=== PATIENT | female | born 1985 | race Caucasian/White ===

== ENCOUNTER 2022-08-16 19:49 | Emergency (ER) | payer BC, SELFPAY ==
[2022-08-16 20:02] VITALS: BP 135/86; PULSE 65; RESP 16; TEMP 36.6; O2SAT 97
--- NOTE | 2022-08-16 20:37 | ED.CHESTPAIN ---
HPI - Chest Pain General Chief Complaint: Chest Pain Stated Complaint: Chest Pain Time Seen by Provider: 08/16/22 20:00 History of Present Illness HPI narrative: This 36-year-old female comes in reporting chest pain over the past several days. She describes all kinds of symptoms actually and has fears about what might be happening with her. She reports lightheadedness, headache, fibromyalgia, shortness of breath. She was into a clinic 4 days ago and had chest x-ray which was negative but was told that she had bronchitis and received a prescription for Z-Gilbert and prednisone. At that time her white count was 12 which is typical for her she says. Today she went to [facility] and had EKG and labs done. The EKG shows no acute findings. Her white count increased to 16,000 which is likely due to her steroid therapy. She does not report any fevers. She states that her chest discomfort is in the left upper chest in radiating around to her left axilla and back. She does not report any particular injury event but does state that she has fibromyalgia and can have chest pain along her sternum and left side related to this. She does state that the pain is reproducible with deep breath and certain movements. She states that her father has idiopathic hypertrophic cardiomyopathy and is concerned that her heart is possibly experiencing the same diagnosis. Related Data Home Medications Medication Instructions Recorded Confirmed acetaminophen 08/16/22 azithromycin 250 mg tablet mg 08/16/22 cyclobenzaprine 5 mg tablet 5 mg PO HS 08/16/22 08/16/22 metformin 500 mg tablet mg 08/16/22 methylprednisolone 4 mg tablets in mg 08/16/22 a dose pack naproxen sodium 220 mg capsule 220 mg PO BID PRN 08/16/22 08/16/22 (Aleve) ondansetron 4 mg disintegrating 4 mg PO Q8H PRN nausea and vomiting 08/16/22 08/16/22 tablet sulfacetamide sodium 10 % eye drops drp 08/16/22 Allergies Allergy/AdvReac Type Severity Reaction Status Date / Time bupropion [From Wellbutrin] Allergy Verified 08/16/22 20:18 Review of Systems Status of ROS Reports: 10 or more systems reviewed and unremarkable except as noted in History and below Narrative Constitutional: No fevers, no weight gain or loss. She states that she has episodes of weakness where it is difficult for her to get up and walk. This lasts about 10 or 20 minutes and happens randomly. Eyes: No discharge. No vision changes. HENT: No congestion, no sore throat, no ear pain. She reports a headache. Cardiovascular: She reports chest pain as described above. She also has occasional palpitations. Respiratory: No wheezes, no cough. She does report episodes of shortness of breath. Gastrointestinal: No abdominal pain, no vomiting, no diarrhea. Genitourinary: No dysuria, no hematuria. Musculoskeletal: Normal range of motion. Skin: No rashes, no pruritis. Neurological: No dizziness, weakness, sensory change, speech change. Endo/Heme/Allergies: No bruising or bleeding. No polydipsia. Pysch: no suicidality, no anxiety, no insomnia. All other systems reviewed and are negative. Exam Narrative Exam Narrative: Constitutional: Well-developed, well-nourished, no acute distress. HEENT: Normocephalic, atraumatic. Neck: Normal range of motion. Nontender. Supple. Heart: Regular. No murmurs. Normal rate. Intact distal pulses. Lungs: Clear to auscultation. No wheezes, rhonchi, or rales. Abdomen: Normal bowel sounds. Nontender. No rebound tenderness. Genitalia: Deferred. Back: No midline tenderness. Normal range of motion. Extremities: Normal range of motion. No injury. Skin: Intact. No rash. Warm. No erythema or pallor. Neurologic: No altered sensation. No weakness. Alert and oriented. Psychiatric: No suicidality. No anxiety or depression. No insomnia. Nursing notes and vitals signs are reviewed. Const Vital Signs, click to edit/add: Vital Signs - 24 hr 08/16/22 20:02 Temperature 97.8 F Pulse Rate [Left Pulse Oximeter] 65 Respiratory Rate 16 Blood Pressure [Right Upper Arm] 135/86 Pulse Oximetry 97 Oxygen Delivery Method Room Air Course Vital Signs Vital signs: Initial Vital Signs Temperature 97.8 F 08/16/22 20:02 Temperature Source Temporal Artery Scan 08/16/22 20:02 Pulse Rate 65 08/16/22 20:02 Pulse Rhythm 08/16/22 20:02 Respiratory Rate 16 08/16/22 20:02 Blood Pressure 135/86 08/16/22 20:02 Blood Pressure Mean 102 08/16/22 20:02 Pulse Oximetry 97 08/16/22 20:02 Oxygen Delivery Method 08/16/22 20:02 Vital Signs Temperature 97.8 F 08/16/22 20:02 Pulse Rate 65 08/16/22 20:02 Respiratory Rate 16 08/16/22 20:02 Blood Pressure 135/86 08/16/22 20:02 Pulse Oximetry 97 08/16/22 20:02 Oxygen Delivery Method 08/16/22 20:02 Temperature 97.8 F 08/16/22 20:02 Pulse Rate 65 08/16/22 20:02 Respiratory Rate 16 08/16/22 20:02 Blood Pressure 135/86 08/16/22 20:02 Pulse Oximetry 97 08/16/22 20:02 Oxygen Delivery Method 08/16/22 20:02 MDM - Chest Pain MDM Narrative Medical decision making narrative: This patient comes in with chest pain and many other symptoms as described above. She had a reasonable workup earlier today in an emergency department. I reviewed those lab and EKG results. Her white count was elevated today compared to 4 days ago but she has been taking a steroid. She has finished taking her Zithromax. I did use ultrasound at bedside to look at her heart and saw normal anatomy without any sign of hypertrophic cardiomyopathy, wall motion abnormality, or valvular dysfunction. This was reassuring to the patient. Additionally her troponin returns at 0.00. A D-dimer result is pending at the end of my shift. This patient had a vaccination for hepatitis-B last week and it was soon after this that she began to have these various symptoms. She may be having some extra immune response and adverse effects from that vaccination. She understands that we do not have a test that can verify the vaccination is the source for these symptoms. In any event she is not showing signs and symptoms that are worrisome. Her chest pain is more likely chest wall pain as it is reproducible. Her heart and lungs are not likely involved with her symptoms. The patient did receive an oral dose of Toradol 10 mg to treat her headache. Lab Data Labs: Lab Results 08/16/22 Range/Units 20:32 POC Troponin I 0.00 L (0.01-0.04) ng/ml Discharge Plan Discharge Clinical Impression: Atypical chest pain Patient Disposition: Home, Self-Care Condition: Stable Additional Instructions: Continue current plans. Follow up with MD or return if worsening symptoms happen. Prescriptions: No Action metformin 500 mg tablet Label Comments: TAKE ONE TABLET BY MOUTH EVERY DAY WITH BREAKFAST azithromycin 250 mg tablet Label Comments: TAKE TWO TABLETS ON THE FIRST DAY, AND ONE DAILY ON DAYS 2-5 sulfacetamide sodium 10 % drops Label Comments: ADMINISTER ONE DROP TO BOTH EYES SIX TIMES A DAY methylprednisolone 4 mg tablets,dose pack Label Comments: TAKE BY MOUTH INSTRUCTED PER PACKAGING ondansetron 4 mg tablet,disintegrating 4 mg PO Q8H PRN (Reason: nausea and vomiting) acetaminophen cyclobenzaprine 5 mg tablet 5 mg PO HS naproxen sodium [Aleve] 220 mg capsule 220 mg PO BID PRN Stand Alone Forms: [facility] Instructions Procedures Ultrasound Cardiac exam #1: Anatomical areas examined: parasternal long, parasternal short and apical 4 chamber Indications: chest pain Exam type: limited transthoracic echocardiogram Impression: negative exam
[2022-08-16] MEDS: KETOROLAC 10 MG TABLET PO (21:09)
[2022-08-16 21:12] VITALS: BP 127/83; PULSE 66; RESP 16; O2SAT 97
[2022-08-16 21:19] LABS: D Dimer Quantitative* < 0.27 ug/ml (0.00-0.50)
--- OUTSIDE RECORDS SUMMARY | 2022-08-16 21:26 | XMS_ITS | Clinical Summary ---
:1985 Author Organization [facility] Address [address] [place] [address] Care Team Providers Name Role Phone Florin Woods M.D. Primary Care Provider Source Comments Patient records contain information from all sites at [facility]. For routine questions regarding patient records, call [phone] during business hours, M-F 8:00 AM - 5:00 PM Central Time. Record requests for emergency care only can be directed to [phone] at any time.[facility] Allergies Active Allergy Reactions Severity Noted Date Comments Bupropion Hcl Anxiety 06/03/2014 flush, anger Medications Medication Sig Dispensed Refills Start Date End Date Status acetaminophen Take by mouth every 0 Active (TYLENOL) 500 mg 6 (six) hours as capsule needed for pain. ondansetron (ZOFRAN) Take 4 mg by mouth 0 Active 4 mg tablet every 8 (eight) hours as needed for nausea or vomiting. cyclobenzaprine cyclobenzaprine 5 mg tablet 0 Active (FLEXERIL) 5 mg TAKE ONE TABLET BY MOUTH AT BEDTIME NEEDED FOR MUSCLE SPASM tablet naproxen sodium Take 220 mg by 0 11/07/2021 Active (ALEVE/ANAPROX) 220 mouth. mg tablet sulfacetamide Administer 1 drop 5 mL 0 04/26/2022 Active (BLEPH-10) 10 % into both eyes 6 ophthalmic solution (six) times a day. Additional Information Patient not taking. Reported on 08/16/2022 metFORMIN (GLUCOPHAGE) 500 Take 1 tablet (500 mg 90 tablet 0 0 08/08/2022 Active mg tablet total) by mouth daily with breakfast. Additional Information Patient not taking. Reported on 08/16/2022 methylPREDNISolone (MEDROL DOSEPAK) TAKE BY MOUTH 0 08/12/2022 Active 4 mg tablet INSTRUCTED PER PACKAGING Active Problems Patient Care Coordination Note Formatting of this note might be differe nt from the original. RACHELE declined by Patient. Problem Noted Date COVID-19 Infection 04/09/2022 Cystocele Midline 07/05/2019 Prolapse Uterine 03/08/2019 Anemia Iron Deficiency 12/03/2018 Subacute And Chronic Vaginitis 04/10/2018 Fibromyalgia 03/27/2018 Headache Tension Chronic 09/05/2014 Chronic Tension Type Headache Not Intractable 09/05/20 14 Cervical Dysplasia Personal History 04/02/2010 Resolved Problems Problem Noted Date Resolved Date Sterilization Elective 04/07/2019 06/18/2019 Overview: laparoscopic bilateral salpingectomy on 06/17/2019 Precipitate Labor 03/01/2019 03/08/2019 Maternal Care For Suspected Abnormality And Damage 05/201903/08/2019 Hyperemesis Gravidarum Mild 08/12/2018 With Personal History Gestational Diabetes Mellitu s 07/16/2018 03/08/2019 Examination Other Normal Third Trimester 07/16/2018 04/07/2019 Obesity Body Mass Index 30-39.9 Adult 04/10/2018 Diabetes Mellitus Gestational 01/05/2015 10/17/2017 Pain Musculoskeletal NOS 11/18/2014 10/17/2017 Depression Major Recurrent 10/22/2011 07/20/2018 Overview: Depressive disorder, major, recurrent ep isode Bipolar I Depressed 10/22/2011 07/20/2018 Overview: Bipolar disorder, depressed Abuse Tobacco Smoking 06/27/2010 04/10/2018 Polycystic Ovary Syndrome 04/02/2010 07/20/2018 Encounters Date Type Specialty Care Team Description 08/16/2022 Hospital Encounter Laboratory Medicine Saleem Deng lpitations; Antoinette, P.A.-C. Shortness O f Breath; Weakness Genera l; Fatigue; Confusion 08/16/2022 Hospital Encounter Laboratory Medicine Saleem Deng lpitations; Antoinette, P.A.-C. Shortness O f Breath; Weakness Genera l; Fatigue; Confusion 08/16/2022 Hospital Encounter Laboratory Medicine Saleem Deng lpitations; Antoinette, P.A.-C. Shortness O f Breath; Weakness Genera l; Fatigue; Confusion 08/16/2022 Hospital Encounter Laboratory Medicine Saleem Deng lpitations; Antoinette, P.A.-C. Shortness O f Breath; Weakness Genera l; Fatigue; Confusion 08/16/2022 Office Visit [facility] Internal Shahla Deng (Primary Dx); Medicine Antoinette, P.A.-C. Shortness O f Breath; Weakness Genera l; Fatigue; Confusion; Flushing 08/16/2022 Nurse Triage Family Medicine Patrizia Koch, Results R.N. 08/15/2022 Nurse Triage Family Medicine Soraida Morales, Follow-u p R.N., CLC 08/12/2022 Nurse Triage Family Medicine Ethel Manzano, Breathing Problem M.S.N., R.N. 08/08/2022 Office Visit Family Medicine Florin Woods, Polycyst ic Ovary Syndrome (Primary Dx); M.D. Obesity Body Ma ss Index 30-39.9 Adult 08/07/2022 Clinical Support Nutrition Mikie Mathews C, Obesity Body Mass M.D. Index 30-39.9 Adult Sarahy Willis, RDN, LD from Last 3 Months Immunizations Name Administration Dates Next Due 4vHPV (discontinued) 06/24/2007, 06/24/2007, 01/23/2007, 10/15/2006 DTaP (Infanrix, Tripedia) 01/26/2015 HepB Adult (HEPLISAV-B) 08/08/2022 HepB, Unspecified 02/18/2005 IPV 11/24/1988 Influenza, Seasonal, Injectable 08/09/2010, 09/29/2008 Influenza, Unspecified 09/05/2014, 08/09/2010, 09/29/2008 MMR 03/18/2000, 11/24/1999 Td (Adult), adsorbed 12/29/2009, 03/18/2000 Tdap 12/30/2018, 12/29/2009 Family History Medical History Relation Name Comments No Known Problems Brother odilon Anesthesia problems Father Confucianist Ng Has pacemak er defribrillator. Can NOT be fully put und er Anxiety disorder Father Hal Ng Colon polyps Father Hal Ng Depression Father Hal Ng Genetic disease Father Hal Ng Idiopathic fami liar cardiomyopathy Heart failure Father Hal Ng Migraines Father Hal Ng Psychiatric Father Hal Ng Suicide Attempts Father Hal Ng chronic kidney diseae Father Hal Ng Uterine cancer Father's Sister 1 55 Endometrial cancer Father's Sister 2 Brenda Lung cancer Father's Sister 2 Brenda Stroke Maternal Grandmother Kathi Kraft Anxiety disorder Mother Janis Arthritis Mother Janis Depression Mother Janis Endometrial cancer Mother Janis 50s Lung cancer Mother Janis Sahin Migraines Mother Janis Uterine cancer Mother Janis Rheum arthritis Mother's Sister Liz Lung cancer Paternal Grandfather Shay Ng Endometrial cancer Paternal Grandmother Mallika >50 Lung cancer Paternal Grandmother Mallika Ng Uterine cancer Paternal Grandmother Mallika Suicide Attempts Sister Selam Ng Relation Name Status Comments Brother odilon Alive Father Hal Ng Alive Father's Sister 1 Father's Sister 2 Brenda Maternal Grandmother Kathi Tuckerehy Mother Janis (Age 51) Mother's Sister Liz Paternal Grandfather Shay Paternal Grandmother Mallika Sister Selam Ng Alive Social History Tobacco Use Types Packs/Day Years Used Date Smoking Tobacco: Former Cigarettes 0 11/1995 - 2015 Smokeless Tobacco: Never Tobacco Cessation: Counseling Given: Not Answered Comments: Smoked throughout my childhood . Quit and restarted a couple times Alcohol Use Standard Drinks/Week Comments Yes 0 (1 standard drink = 0.6 oz pure I dont drink often. Maybe twice a alcohol) month Alcohol Habits Answer Date Recorded How often do you have a drink Monthly or less 01/25/2022 containing alcohol? How many drinks containing alcohol do 1 or 2 you have on a typical day when you are drinking? How often do you have six or more Never 2021 drinks on one occasion? Comment: I dont drink often. Maybe twice a 2017 month Social Isolation Answer Date Recorded In a typical week, how many times do you More than three becki es a week 01/25/2022 talk on the phone with family, friends, or neighbors? How often do you get together with friends More than three t imes a week 01/25/2022 or relatives? How often do you attend muslim or Never 2021 orthodoxy services? Do you belong to any clubs or No 01/25/2022 organizations such as muslim groups, unions, fraternal or athletic groups, or school groups? How often do you attend meetings of the Never 01/25/2022 clubs or organizations you belong to? Are you now , , , Living with partner 01/25/2022 , never or living with a partner? Physical Activity Answer Date Recorded On average, how many days per week do you engage in moderate to 7 days 01/25/2022 strenuous exercise (like walking fast, running, jogging, dancing, swimming, biking, or other activities that cause a light or heavy sweat)? On average, how many minutes do you engage in exercise at th is 30 min 01/25/2022 level? Stress Answer Date Recorded Do you feel stress - tense, restless, nervous, or anxious, R ather much 01/25/2022 or unable to sleep at night because your mind is troubled all the time - these days? Financial Resource Strain Answer Date Recorded How hard is it for you to pay for the very basics like Not h oksana at all 01/25/2022 food, housing, medical care, and heating? Intimate Partner Violence Answer Date Recorded Within the last year, have you been afraid of your partner o r No 01/25/2022 ex-partner? Within the last year, have you been humiliated or emotionall y No 01/25/2022 abused in other ways by your partner or ex-partner? Within the last year, have you been kicked, hit, slapped, or No 01/25/2022 otherwise physically hurt by your partner or ex-partner? Within the last year, have you been raped or forced to have any No 01/25/2022 kind of sexual activity by your partner or ex-partner? Food Insecurity Answer Date Recorded Within the past 12 months, you worried that your food would Never true 01/25/2022 run out before you got money to buy more. Within the past 12 months, the food you bought just didn't N ever true 01/25/2022 last and you didn't have money to get more. Transportation Needs Answer Date Recorded In the past 12 months, has lack of transportation kept you f rom No 01/25/2022 medical appointments or from getting medications? In the past 12 months, has lack of transportation kept you f rom No 01/25/2022 meetings, work, or getting things needed for daily living? Housing Stability Answer Date Recorded In the last 12 months, was there a time when you were not ab le No 01/25/2022 to pay the mortgage or rent on time? In the last 12 months, how many places have you lived? 1 01/25/2022 In the last 12 months, was there a time when you did not hav e a No 01/25/[address] or slept in a longterm (including now)? Education Answer Date Recorded What is the highest level of school you have GED or equivale nt 05/25/2019 completed or the highest degree you have received? Sex Assigned at Date Recorded Female 06/02/2018 2:38 PM CDT Last Filed Vital Signs Vital Sign Reading Time Taken Comments Blood Pressure 92/59 08/16/2022 9:27 AM CDT Pulse 67 08/16/2022 9:27 AM CDT Temperature 35.8 ??C (96.5 ??F) 08/16/2022 9:27 AM CDT Respiratory Rate 16 08/16/2022 9:27 AM CDT Oxygen Saturation 97% 08/16/2022 9:27 AM CDT Inhaled Oxygen Concentration - - Weight 77 kg (169 lb 13.8 oz) 08/16/2022 9:27 AM CDT Height 153 cm (5' 0.24) 08/16/2022 9:27 AM CDT Body Mass Index 32.91 08/16/2022 9:27 AM CDT Plan of Treatment Upcoming Encounters Date Type Specialty Care Team Description 08/30/2022 Clinical Communication Admitting/Central Scheduling 09/02/2022 Comprehensive Visit Endocrinology Ricardo Winkler APRN, C.N.P., D.N.P. [address] [place] [id number] Health Maintenance Due Date Last Done Comments COVID-19 Vaccine (#1) 04/15/1988 Influenza Vaccine (#1) 2022 09/05/2014, 08/09/2010, 08/09/2010, Additional history exists Hepatitis B Vaccines (3 of 10/03/2022 08/08/2022, 5 3 - 3-dose series) Cervical Cancer Screening 04/07/2024 04/07/2019, 12/18/2016 , 08/05/2014, Additional history exists DTaP,Tdap,and Td Vaccines 12/30/2028 12/30/2018, 01/26/2015 , (5 - Td or Tdap) 12/29/2009, Additional history exists Hepatitis C Screening Completed 06/03/2014 HIV Screening Completed 09/02/2018, 08/05/2014, 06/03/2014 Depression Screening Completed 12/31/2021 (Annual PHQ-2) Pneumococcal vaccine (0-64 Aged Out No lo nger eligible years) based on patient 's age to complete this topic Medical Devices Implanted Type Area Cupola Operator Insulation Device Shelf Model / Identifier Expiration Serial / Date Lot Hardware E.G. Hardware Abdomen Pins/Screws/Ro e.g. ds pins/screws/ rods Description: Appendix Procedures Procedure Name Priority Date/Time Associated Comments Diagnosis ECG Routine 08/16/2022 10:51 Palpitations Results for this AM CDT Shortness Of Gris ath procedure are in Weakness General the results Fatigue section. Confusion THYROID FUNCTION Routine 08/16/2022 10:43 Palpitations Results for this CASCADE, S AM CDT Shortness Of Gris ath procedure are in Weakness General the results Fatigue section. Confusion BASIC METABOLIC Routine 08/16/2022 10:43 Palpitations Results for this PANEL, S/P AM CDT Shortness Of Gris ath procedure are in Weakness General the results Fatigue section. Confusion CBC WITH Routine 08/16/2022 10:43 Palpitations Results for this DIFFERENTIAL, B AM CDT Shortness Of Gris ath procedure are in Weakness General the results Fatigue section. Confusion URINALYSIS WITH Routine 08/16/2022 10:39 Palpitations Results for this MICROSCOPIC AM CDT Shortness Of Gris ath procedure are in Weakness General the results Fatigue section. Confusion from Last 3 Months Results ECG 12 Lead (08/16/2022 10:51 AM CDT) P athologist Signature Ventricular Rate 57 BPM MUSE ECG/Min CO Interval 152 ms MUSE QRSD Interval 82 ms MUSE QT Interval 418 ms MUSE QTC Interval 406 ms MUSE P [place] 64 degrees MUSE R [place] 40 degrees MUSE T Wave [place] 16 degrees MUSE Specimen Anatomical Collection Method Collection Time Receive d Time (Source) Location / / Volume Laterality 08/16/2022 10:51 08/16/2022 AM CDT 10:56 AM CDT Impressions MUSE - 08/16/2022 10:56 AM CDT Sinus bradycardia Cannot rule out Inferior infarct No previous ECGs available Reviewed by SIA Srinivasan Narrative This result has an attachment that is no t available. Procedure Note Yeison Alves M.D. - 08/16/2022Fo rmatting of this note might be different from the original. IMPRESSION: Sinus bradycardia Cannot rule out Inferior infarct No previous ECGs available Reviewed by SIA Srinivasan Antoinette Deng P.A.-C. ECG ORDERABLES Performing Organization Address City/State/ZIP Code Phon e Number MUSE MUSE NA Thyroid Function [place] (08/16/2022 10:43 AM CDT) P athologist Signature TSH, Sensitive 3.8 0.3 - 4.2 08/16/2022 [place] mIU/L 1:49 PM CDT Specimen Anatomical Collection Method Collection Time Receive d Time (Source) Location / / Volume Laterality Blood (Blood, 08/16/2022 10:43 08/16/2022 1:03 Venous) AM CDT PM CDT Antoinette Deng P.A.-C. LAB BLOOD ADD-ON Performing Organization Address City/State/ZIP Code Phon e Number [facility]- [address] [place] [address] [place] [address] System in [place] [address] (ABNORMAL) CBC with Differential, Blood (08/16/2022 10:43 AM CDT) Patholo gist Method Time Signature Hemoglobin 13.3 11.6 - 08/16/2022 FB60 15.0 g/dL 11:26 AM CDT Hematocrit 40.3 35.5 - 08/16/2022 FB60 44.9 % 11:26 AM CDT Erythrocytes 4.31 3.92 - 08/16/2022 FB60 5.13 11:26 AM CDT x10(12)/L MCV 93.5 78.2 - 08/16/2022 FB60 97.9 fL 11:26 AM CDT RBC Distrib Width 13.0 12.2 - 08/16/2022 FB60 16.1 % 11:26 AM CDT Platelet Count 462 (H) 157 - 371 08/16/2022 FB60 x10(9)/L 11:26 AM CDT Leukocytes 16.6 (H) 3.4 - 9.6 08/16/2022 FB60 x10(9)/L 11:26 AM CDT Neutrophils 11.89 (H) 1.56 - 08/16/2022 FB60 6.45 11:26 AM CDT x10(9)/L Lymphocytes 3.55 (H) 0.95 - 08/16/2022 FB60 3.07 11:26 AM CDT x10(9)/L Monocytes 1.06 (H) 0.26 - 08/16/2022 FB60 0.81 11:26 AM CDT x10(9)/L Eosinophils <0.04 0.03 - 08/16/2022 FB60 0.48 11:26 AM CDT x10(9)/L Basophils <0.04 0.01 - 08/16/2022 FB60 0.08 11:26 AM CDT x10(9)/L Specimen Anatomical Collection Method Collection Time Receive d Time (Source) Location / / Volume Laterality Blood (Blood, 08/16/2022 10:43 08/16/2022 Venous) AM CDT 10:43 AM CDT Antoinette Deng P.A.-C. LAB BLOOD ADD-ON Performing Organization Address City/State/ZIP Code Phon e Number [facility]- [address] [place] [address] [facility] [address] [place] [address] Basic Metabolic Panel (08/16/2022 10:43 AM CDT) P athologist Signature Potassium, P 4.0 3.6 - 5.2 08/16/2022 [place] mmol/L 1:39 PM CDT Sodium, P 139 135 - 145 08/16/2022 [place] mmol/L 1:39 PM CDT Chloride, P 99 98 - 107 08/16/2022 [place] mmol/L 1:39 PM CDT Bicarbonate, P 29 22 - 29 08/16/2022 [place] mmol/L 1:39 PM CDT Anion Gap, P 11 7 - 15 08/16/2022 [place] 1:39 PM CDT BUN (Blood Urea 16 6 - 21 08/16/2022 [place] Nitrogen), P mg/dL 1:39 PM CDT Creatinine 0.72 0.59 - 08/16/2022 [place] 1.04 mg/dL 1:39 PM CDT Estimated GFR >90 >=60 08/16/2022 [place] (eGFR) mL/min/BSA 1:39 PM CDT Comment: Estimated GFR calculated using the 2020 CKD_EPI creatinine equation. Calcium, Total, P 9.7 8.6 - 10.0 mg/dL 08/16/2022 1:39 PM CDT [place] Glucose, P 86 70 - 140 mg/dL 08/16/2022 1:39 PM CDT O RAO Specimen Anatomical Collection Method Collection Time Receive d Time (Source) Location / / Volume Laterality Blood (Blood, 08/16/2022 10:43 08/16/2022 1:03 Venous) AM CDT PM CDT Antoinette Deng P.A.-C. LAB BLOOD ADD-ON Performing Organization Address City/State/ZIP Code Phon e Number [facility]- [address] [place] [id number] [place] [address] System in [place] [address] (ABNORMAL) Urinalysis with Microscopic: Urine, Midstream (08/16/2022 10:39 AM CDT) Analysis Performed At Patho logist Time Signature Source Urine, Urine, 08/16/2022 FB60 Midstream 10:47 AM CDT Clarity Clear Clear 08/16/2022 FB60 11:02 AM CDT Color Yellow 08/16/2022 FB60 11:02 AM CDT Comment: ----REFERENCE VALUE---- Colorless Yellow Francia Blood Large (A) Negative 08/16/2022 11:02 AM CDT FB60 Nitrite Negative Negative 08/16/2022 11:02 AM CDT FB60 Leukocyte Esterase Negative Negative 08/16/2022 11:02 AM C DT FB60 Protein 30 (A) mg/dL 08/16/2022 11:02 AM CDT FB60 Comment: ----REFERENCE VALUE---- Negative Trace Glucose Negative Negative mg/dL 08/16/2022 11:02 AM CDT F B60 Ketones, QI(U) Negative Negative mg/dL 08/16/2022 11:02 AM CDT FB60 Bilirubin Small (A) Negative 08/16/2022 11:02 AM CDT FB60 pH 5.5 5.0 - 8.0 08/16/2022 11:02 AM CDT FB60 Specific [place] >=1.030 1.001 - 1.035 08/16/2022 11:02 AM CDT FB60 Urobilinogen 0.2 0.2 - 1.0 mg/dL 08/16/2022 11:02 AM C DT FB60 White Blood Cells Occ-3 /hpf 08/16/2022 11:02 AM CD T FB60 Comment: ----REFERENCE VALUE---- Males: 0-3 Females: 0-10 Unknown: 0-10 Red Blood Cells 11-20 (A) 0 - 2 /hpf 08/16/2022 11:02 AM CDT FB60 Dysmorphic Red Blood Cells <=25 <=25 % 08/16/2022 11 :02 AM CDT FB60 Mucus Present /hpf 08/16/2022 11:02 AM CDT FB60 Specimen Anatomical Collection Method Collection Time Receive d Time (Source) Location / / Volume Laterality Urine (Urine, 08/16/2022 10:39 08/16/2022 Midstream) AM CDT 10:47 AM CDT Antoinette SorianoALaxmiC. LAB URINE ORDERABLES Performing Organization Address City/State/ZIP Code Phon e Number [facility]- [address] [place] [address] [facility] [address] [place] [address] System in [place] [address] from Last 3 Months Insurance Payer Benefit Plan Subscriber ID Effective Phone Address Typ e / Group Dates BLUE AXEL BCBS BLUE [id number] 2019-Prese ATTN: Riya cervantes HMO BLUE SHIELD PLUS HMO nt CONSUMER [facility] [place] [address] [address] [place] [address] Care Teams Relief Cook Relationship Specialty Start Date End Date Florin Woods M.D. PCP - General 01/04/[address] [place] [address] [place]O [place] [phone]
--- OUTSIDE RECORDS SUMMARY | 2022-08-16 21:26 | XMS_ITS | Encounter Summary ---
:1985 Author Organization [facility] Address [address] [place] [address] Care Team Providers Name Role Phone Florin Woods M.D. Primary Care Provider Encounter Details Date Type Department Care Team Description 08/16/2022 Hospital Encounter Department of [place], Palpitat ions; Laboratory Medicine Antoinette, Shortnes s Of Breath; in Bo SchroederAJus Weakness General; [place] [address] Fatigue; [address] [place], [place] [phone] Social History Tobacco Use Types Packs/Day Years Used Date Smoking Tobacco: Former Cigarettes 0 11/1995 - 2015 Smokeless Tobacco: Never Comments: Smoked throughout my childhood . Quit [...] or relatives? How often do you attend episcopalian or Never 2021 voodoo services? Do you belong to any clubs or No 01/25/2022 organizations such as episcopalian groups, unions, fraternal or athletic groups, or [...] place to sleep or slept in a correction (including now)? Education Answer Date Recorded What is the highest level of school you have GED or equivale nt 05/25/2019 completed or the highest degree you have received? Sex Assigned at Date Recorded Female 06/02/2018 2:38 PM CDT documented as of this encounter Plan of Treatment Upcoming Encounters Date Type Specialty Care Team Description 08/30/2022 Clinical Communication Admitting/Central Scheduling 09/02/2022 Comprehensive Visit Endocrinology Ricardo Winkler, ISLVIO, C.N.P., D.N.P. [address] [place] [address] Pending Results Name Type Priority Associated Diagnoses Date/Ti me Bacterial Culture, Microbiology Routine Palpitations 08/16/2022 10:39 AM Aerobic + Susc, Urine Shortness Of Breath CDT Weakness General Fatigue Confusion Scheduled Orders Name Type Priority Associated Diagnoses Order S chedule Bacterial Culture, Microbiology Routine Palpitations Once for 1 Occurrences Aerobic + Susc, Shortness Of Gris ath starting 08/16/2022 Urine Weakness General until 08/16/2022 Fatigue Confusion documented as of this encounter Visit Diagnoses Diagnosis Palpitations Shortness Of Breath Weakness General Fatigue Confusion documented in this encounter Additional Health Concerns Assessment Noted Time PHQ-9 Depression Total Score: 19 12/31/2021 8:33 AM CS T documented as of this encounter Care Teams Engineer/Conductor Relationship Specialty Start Date End Date Florin Woods M.D. PCP - General 01/04/[address] [place] [address] [place] [address] documented as of this encounter
--- OUTSIDE RECORDS SUMMARY | 2022-08-16 21:26 | XMS_ITS | Encounter Summary ---
:1985 Author Organization [facility] Address [address] [place] [address] Care Team Providers Name Role Phone Florin Woods M.D. Primary Care Provider Encounter Details Date Type Department Care Team Description 08/16/2022 Hospital Encounter Department of [place], Palpitat ions; Laboratory Medicine Antoinette, Shortnes s Of Breath; in Bo SchroederAJus Weakness General; [place] [address] Fatigue; [address] [place], [place] [phone] Social History Tobacco Use Types Packs/Day Years [...] or relatives? How often do you attend jew or Never 2021 holiness services? Do you belong to any clubs or No 01/25/2022 organizations such as jew groups, unions, fraternal or athletic groups, or [...] place to sleep or slept in a nursing home (including now)? Education Answer Date Recorded What [...] Scheduling 09/02/2022 Comprehensive Visit Endocrinology Ricardo Winkler, SILVIO, C.N.P., D.N.P. [address] [place] [address] documented as of this encounter Procedures Procedure Name Priority Date/Time Associated Comments Diagnosis URINALYSIS WITH Routine 08/16/2022 10:39 Palpitations Results for this MICROSCOPIC AM CDT Shortness Of Gris ath procedure are in Weakness General the results Fatigue section. Confusion documented in this encounter Results (ABNORMAL) Urinalysis with Microscopic: Urine, Midstream (08/16/2022 [...] 8.0 08/16/2022 11:02 AM CDT FB60 Specific [place] >=1.030 1.001 - 1.035 08/16/2022 11:02 AM [...] Midstream) AM CDT 10:47 AM CDT Antoinette Deng P.A.-C. LAB URINE ORDERABLES Performing Organization Address City/State/ZIP Code Phon e Number [facility] [address] [place] [address] [facility] [address] [place] [address] [address] documented in this encounter Visit Diagnoses Diagnosis Palpitations Shortness Of Breath Weakness General Fatigue Confusion documented in this encounter Additional Health Concerns Assessment Noted Time PHQ-9 Depression Total Score: 19 12/31/2021 8:33 AM CS T documented as of this encounter Care Teams Production Clerk Relationship Specialty Start Date End Date Florin Woods M.D. PCP - General 01/04/[address] [place] [address] [place] [address] documented as of this encounter
--- OUTSIDE RECORDS SUMMARY | 2022-08-16 21:26 | XMS_ITS | Encounter Summary ---
:1985 Author Organization [facility] Address [address] [place] [address] Care Team Providers Name Role Phone Florin Woods M.D. Primary Care Provider Reason for Visit Reason Comments Results Encounter Details Date Type Department Care Team Description 08/16/2022 Nurse Triage Department of [facility] Jodie Koch, [facility] Medicine, [facility], [address] [place] [address] [address] [place] [address] [phone] Social History Tobacco Use Types Packs/Day Years [...] or relatives? How often do you attend moravian or Never 2021 amish services? Do you belong to any clubs or No 01/25/2022 organizations such as moravian groups, unions, fraternal or athletic groups, or [...] place to sleep or slept in a intermediate (including now)? Education Answer Date Recorded What is the highest level of school you have GED or equivale nt 05/25/2019 completed or the highest degree you have received? Sex Assigned at Date Recorded Female 06/02/2018 2:38 PM CDT documented as of this encounter Miscellaneous Notes Telephone Encounter - Patrizia Koch R.N. - 08/16/2022 5:50 PM CDT Chief Complaint / Reason for Call Patient is a 36 y.o. female calling regarding Results. Patient presented to Clinic to day for post-ED follow up. She states she was sent home after evaluation but before results of lab work and ECG were available. Tonight in her portal she noted her WBC has increased since starting Azithromycin and she was also concerned about the results of her ECG. She states she still feels unwell. Recommended seeking further medical care for worsening symptoms as directed by Provider at today's office visit. documented in this encounter Plan of Treatment Upcoming Encounters Date Type Specialty Care Team Description 08/30/2022 Clinical Communication Admitting/Central Scheduling 09/02/2022 Comprehensive Visit Endocrinology Ricardo Winkler APRN, C.N.P., D.N.P. [address] [place] [address] documented as of this encounter Visit Diagnoses Not on filedocumented in this encounter Additional Health Concerns Assessment Noted Time PHQ-9 Depression Total Score: 19 12/31/2021 8:33 AM CS T documented as of this encounter Care Teams Hiv Cts Specialist Relationship Specialty Start Date End Date Florin Woods M.D. PCP - General 01/04/[address] [place] [address] [place] [address] documented as of this encounter
--- OUTSIDE RECORDS SUMMARY | 2022-08-16 21:27 | XMS_ITS | Encounter Summary ---
:1985 Author Organization [facility] Address [address] [place] [address] Care Team Providers Name Role Phone Florin Woods M.D. Primary Care Provider Reason for Referral Outpatient (Routine) - Closed Specialty Diagnoses / Procedures Referred By Contact Refer red To Contact Procedures Mikie Mathews M.D. [facility] Pelvis Transvaginal and [address] [place] [address] [place] [address] Referral ID Status Reason Start Date Expiration Date Visits Requ ested Visits Authorized [id number] Closed 12/31/2021 12/31/2022 1 1 utpatient (Routine) - Authorized Specialty Diagnoses / Procedures Referred By Contact Refer red To Contact Clinical Genomics Diagnoses Cancer Uterus Family History Mikie Mathews M.D. [address] [address] Referral ID Status Reason Start Date Expiration Date Visits V isits Requested Authorized [id number] Authorized 12/31/2021 12/31/2022 1 1 utpatient (Routine) - Authorized Specialty Diagnoses / Procedures Referred By Contact Refer red To Contact Nutrition Diagnoses Obesity Body Mass Index 30-39.9 Adult Mikie Mathews M.D. [address] [phone] Referral ID Status Reason Start Date Expiration Date Visits V isits Requested Authorized [id number] Authorized 12/31/2021 12/31/2022 1 1 utpatient (Routine) - Authorized Specialty Diagnoses / Procedures Referred By Contact Refer red To Contact Endocrinology Diagnoses Obesity Body Mass Index 30-39.9 Adult Mikie Mathews M.D. [address] [address] Referral ID Status Reason Start Date Expiration Date Visits V isits Requested Authorized [id number] Authorized 12/31/2021 12/31/2022 1 1 AGATION WORKER Reason for Visit Reason Comments Gynecologic Exam Appointment Request (Routine) - Closed Specialty Diagnoses / Procedures Referred By Contact Refer red To Contact Obstetrics and Gynecology Referral ID Status Reason Start Date Expiration Date Visits Requ ested Visits Authorized [id number] Closed 12/24/2021 12/24/2022 1 1 Encounter Details Date Type Department Care Team Description 12/31/2021 Office Visit Department of Mikie Mathews Mass Vagin a (Primary Dx); Obstetrics and M.DAmaris Obesity Body Mass Index 30-39.9 Adult; Gynecology in [address] [place] [address] Cancer Uterus Family History [address] [address] [place], [place] [phone] [address] (Work) [phone] Social History Tobacco Use Types Packs/Day Years [...] or relatives? How often do you attend scientologist or Never 2021 rastafari services? Do you belong to any clubs or No 01/25/2022 organizations such as scientologist groups, unions, fraternal or athletic groups, or [...] place to sleep or slept in a chcf (including now)? Education Answer Date Recorded What is the highest level of school you have GED or equivale nt 05/25/2019 completed or the highest degree you have received? Sex Assigned at Date Recorded Female 06/02/2018 2:38 PM CDT documented as of this encounter Last Filed Vital Signs Vital Sign Reading Time Taken Comments Blood Pressure 100/66 12/31/2021 8:31 AM PROPAGATION WORKER Pulse 68 12/31/2021 8:31 AM PROPAGATION WORKER Temperature - - Respiratory Rate - - Oxygen Saturation - - Inhaled Oxygen Concentration - - Weight 77.9 kg (171 lb 11.8 oz) 12/31/2021 8:31 AM PROPAGATION WORKER Height 154 cm (5' 0.63) 12/31/2021 8:31 AM PROPAGATION WORKER Body Mass Index 32.85 12/31/2021 8:31 AM PROPAGATION WORKER documented in this encounter Progress Notes Mikie Mathews M.D. - 12/31/2021 8:30 AM CST CLINIC NOTE SUBJECTIVE CHIEF COMPLAINT/REASON FOR VISIT Chief Complaint Patient presents with ??? Gynecologic Exam HISTORY OF PRESENT ILLNESS Keily Ng is a 36 y.o. who presents on the recommendation of her pelvic floor physical therapist who felt a nodule in her vaginal wall. She denies any awareness or symptoms from this nodule. She notes just restarted pelvic floor PT. Reports anterior and posterior loss of support, denies incontinence. Has tried a pessary and didn't like it. Pelvic floor PT worked for her in the past, thoughtherapy was interrupted given multiple life stressors interfering with compliance. She reports also struggling with obesity, has been unable to lose weight on her own. Medical history notable for obesity, PCOS, cystocele, recurrent vaginitis. No current vaginal nor breast concerns, no other pelvic symptoms other than noted above. Menstrual cycles have historically been irregular, however they have been a monthly this year. OBSTETRICAL HISTORY: , status post x5 GYNECOLOGIC HISTORY: Patient's last menstrual period was 12/18/2021.. Menses are irregular, 9-10 cycles per year, monthlywhen they happen. Last pap NIL (04/11), due in March 2022 control: Sterilization MEDICAL HISTORY Past Medical History: Diagnosis Date ??? Abnormal Pap Smear Personal History ??? Abuse Tobacco Smoking 06/27/2010 quit 2015 ??? Anemia Iron Deficiency 12/03/2018 ??? Bipolar I Depressed (HCC) 10/22/2011 ??? Cervical Dysplasia Personal History 04/02/2010 ??? Chronic Tension Type Headache Not Intractable 09/05/2014 ??? Cystocele Midline 07/05/2019 ??? Depression Major Recurrent (HCC) 10/22/2011 Depressive disorder, major, recurrent episode ??? Diabetes Mellitus Gestational 02/15/2015 A1GDM, diet controlled ??? Fibromyalgia 03/27/2018 ??? Headache Tension Chronic 09/05/2014 ??? Liver Disease Fatty liver tissue ??? Migraine Headache ??? Obesity Body Mass Index 30-39.9 Adult 04/10/2018 ??? Pain Musculoskeletal NOS 11/18/2014 ??? Polycystic Ovary Syndrome 04/02/2010 ??? Precipitate Labor (HCC) 03/01/2019 ??? Prolapse Uterine 03/08/2019 uterine prolapse ??? Sterilization Elective 04/07/2019 laparoscopic bilateral salpingectomy on 06/17/2019 ??? Subacute And Chronic Vaginitis 04/10/2018 recurrent bacterial vaginitis SURGICAL HISTORY Past Surgical History: Procedure Laterality Date ??? LAPAROSCOPIC APPENDECTOMY 12/25/2012 ??? LAPAROSCOPIC SALPINGECTOMY Bilateral 06/17/2019 ??? LEEP PROCEDURE - LOOP ELECTRO EXCISION PROCEDURE 2006 FAMILY HISTORY Family History Problem Relation Age of Onset ??? Uterine cancer Mother ??? Lung cancer Mother Sahni ??? Endometrial cancer Mother 50s ??? Arthritis Mother ??? Migraines Mother ??? Anxiety disorder Mother ??? Depression Mother ??? Uterine cancer Father's Sister 55 ??? Uterine cancer Paternal Grandmother ??? Lung cancer Paternal Grandmother Ng ??? Endometrial cancer Paternal Grandmother >50 ??? Lung cancer Paternal Grandfather Ng ??? Lung cancer Father's Sister ??? Endometrial cancer Father's Sister ??? Stroke Maternal Grandmother ??? Rheum arthritis Mother's Sister ??? Colon polyps Father ??? Migraines Father ??? Anxiety disorder Father ??? Depression Father ??? Psychiatric Father ??? Suicide Attempts Father ??? Genetic disease Father Idiopathic familiar cardiomyopathy ??? Anesthesia problems Father Has pacemaker defribrillator. Can NOT be fully put under ??? Suicide Attempts Sister ??? No Known Problems Brother SOCIAL HISTORY Social History Socioeconomic History ??? Marital status: Single Spouse name: Ovi Alexander ??? Number of children: 5 ??? Highest education level: GED or equivalent Tobacco Use ??? Smoking status: Former Smoker Packs/day: 0.00 Types: Cigarettes Start date: 11/24/1995 Quit date: 2016 Years since quittin.1 ??? Smokeless tobacco: Never Used ??? Tobacco comment: Smoked throughout my childhood. Quit and restarted a couple times Substance and Sexual Activity ??? Alcohol use: Yes Types: 1 Glasses of wine per week Comment: I dont drink often. Maybe twice a month ??? Drug use: Yes Types: Marijuana ??? Sexual activity: Yes Partners: Male control/protection: Female Sterilization ALLERGIES/CONTRAINDICATIONS Bupropion hcl CURRENT MEDICATIONS Current Outpatient Medications Medication Sig Dispense Refill ??? acetaminophen (TYLENOL) 500 mg capsule Take by mouth every 6 (six) hours as needed for pain. ??? bisacodyl (DULCOLAX) 5 mg EC tablet Take 10 mg by mouth daily as needed for constipation. ??? ibuprofen (ADVIL,MOTRIN) 600 mg tablet TAKE ONE TABLET BY MOUTH EVERY 6 HOURS NEEDED FOR PAINMAX OF 3200MG / 24HRS 0 ??? oxyCODONE-acetaminophen (PERCOCET) 5-325 mg per tablet Take 1 tablet by mouth every 6 (six) hours as needed for pain. ??? azithromycin (ZITHROMAX) 250 mg tablet Take 250 mg by mouth. ??? breast pump device Electric breast pump for home use. Gestation age at delivery: 37 weeks. Reason for need: nursing. Length of need: 12 months ??? cefUROXime (CEFTIN) 500 mg tablet TAKE ONE TABLET BY MOUTH TWICE A DAY FOR 7 DAYS ??? ondansetron (ZOFRAN) 4 mg tablet Take 4 mg by mouth every 8 (eight) hours as needed for nausea or vomiting. ??? predniSONE (DELTASONE) 20 mg tablet Take 2 tablets (40 mg total) by mouth daily. (Patient not taking: Reported on 12/31/2021) 10 tablet 0 ??? vitamin-iron fumarate-FA 28 mg iron- 800 mcg per tablet Take 1 tablet by mouth. ??? sucralfate (CARAFATE) 1 gram tablet Take 1 g by mouth every 6 (six) hours. No current facility-administered medications for this visit. REVIEW OF SYSTEMS A 10 point Review of Systems was negative, other than as noted in the History of Present Illness. OBJECTIVE PHYSICAL EXAMINATION Vitals: 12/31/21 0831 BP: 100/66 Pulse: 68 Weight: 77.9 kg Height: 154 cm Body mass index is 32.85 kg/m??. General: Alert, oriented, appropriately interactive, in no acute distress. Cardiovascular: Regular rate and rhythm. Respiratory: Clear to auscultation bilaterally. Good effort, without distress. Breasts: No axillary adenopathy. No dominant masses. No skin changes. No nipple discharge. Nontender. Abdomen: Soft, nontender, nondistended. No masses. No hernias. No inguinal lymphadenopathy. Perineum: No lesions. Normal appearing external genitalia, Bartholin glands, urethra, and [place]'s glands. Vagina: Grade 1 cystocele, good superior and posterior support with Valsalva. No masses or lesions visualized. No discharge, normally rugated. Cervix: No masses or lesions. No discharge. Anus: Appears normal. Bimanual Exam: Nontender pelvic floor muscles. Small, approximately 2-3 mm nodule, nontender, superficially embedded in vaginal mucosa mid vaginal length at approximately 0300 hours, no deeper tissue findings. Urethra: Nontender. Bladder: Nontender, without massess Uterus: Midline, anteverted, small, mobile. No masses, nontender. Adnexa: No masses or tenderness appreciated. No cervical motion tenderness. Musculoskeletal: Normal gait. Symmetric movements of upper extremities and lower extremities. Lower Extremities: Nontender, no edema. LABS: No results found for this or any previous visit (from the past 72 hour(s)). Transvaginal ultrasound: Normal-appearing uterus, 6.95 x 5.80 x 4.23 cm, endometrial thickness 3.94 mm Left ovary 2.84 x 2.63 x 1.91 cm Right ovary 2.83 x 2.84 x 2.0 cm The following portions of the patient's history were reviewed and updated as appropriate: allergies,current medications, family history, medical history, social history, surgical history and problem list. ASSESSMENT / PLAN Keily Ng is a 36 y.o. who presents regarding a nodule incidentally noted in her vaginal wall. Mass Vagina - Reassuring evaluation including visual pelvic exam, bimanual, and transvaginal ultrasound, these findings were reviewed with the patient - US Pelvis Transvaginal and Transabdominal Cystocele - She has a mild cystocele on exam today, encouraged her to continue with pelvic floor PT at this time, discussed options for possible surgery in the future if her prolapse symptoms get worse. Obesity Body Mass Index 30-39.9 Adult - Endocrinology - Weight management consult (clinic); Future - Nutrition - Weight management medical nutrition therapy consult (clinic); Future Cancer Uterus Family History - Several relatives with endometrial cancer, non onset under 50 years old - Clinical Genomics - General genetics consult (clinic); Future Mikie Mathews M.D. 12/31/2021 9:56 AM PROPAGATION WORKER AGATION WORKER documented in this encounter Plan of Treatment Upcoming Encounters Date Type Specialty Care Team Description 08/30/2022 Clinical Communication Admitting/Central Scheduling 09/02/2022 Comprehensive Visit Endocrinology Ricardo Winlker APRN, C.N.P., D.N.P. [address] [place] [address] Scheduled Referrals Name Type Priority Associated Order Schedule Diagnoses Endocrinology - Weight Outpatient Referral Routine Obesity Bod y Mass Expected: management consult Index 30-39.9 Adult (clinic) (Approximate), Expires: 03/30/2023 Nutrition - Weight Outpatient Referral Routine Obesity Body Ma ss Expected: management medical Index 30-39.9 Adult nutrition therapy (Approxima te), consult (clinic) Expires: 03/30/2023 Clinical Genomics - Outpatient Referral Routine Cancer Uterus Expected: General genetics Family History consult (clinic) (Approximat e), Expires: 03/30/2023 documented as of this encounter Procedures Procedure Name Priority Date/Time Associated Comments Diagnosis US PELVIS RAD - Routine 12/31/2021 9:14 Mass Vagina Results for TRANSVAGINAL AND (most inpatients AM PROPAGATION WORKER this pr ocedure TRANSABDOMINAL and all are in the outpatients) results section. documented in this encounter Results US Pelvis Transvaginal and Transabdominal (12/31/2021 9:14 AM PROPAGATION WORKER) Anatomical Region Laterality Modality Pelvis, Ultrasound RST LOS, Ultrasound ARZ LOS, Ultrasound F LA N/A Ultrasound LOS Specimen (Source) Anatomical Location Collection Method / Collectio n Time Received Time / Laterality Volume Narrative 12/31/2021 9:14 AM PROPAGATION WORKER Normal-appearing uterus, 6.95 x 5.80 x 4.23 cm, endometrial thickness 3.94 mm Left ovary 2.84 x 2.63 x 1.91 cm Right ovary 2.83 x 2.84 x 2.0 cm Mikie PISANO US PROCEDURES documented in this encounter Visit Diagnoses Diagnosis Mass Vagina - Primary Obesity Body Mass Index 30-39.9 Adult Cancer Uterus Family History documented in this encounter Additional Health Concerns Assessment Noted Time PHQ-9 Depression Total Score: 19 12/31/2021 8:33 AM CS T documented as of this encounter Care Teams Maintenance Journeyman Relationship Specialty Start Date End Date Florin Woods M.D. PCP - General 01/04/[address] [place] [address] [place] [address] documented as of this encounter
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
--- OUTSIDE RECORDS SUMMARY | 2022-08-16 21:27 | XMS_ITS | Encounter Summary ---
:1985 Author Organization [facility] Address [address] [place] [address] Care Team Providers Name Role Phone Florin Woods M.D. Primary Care Provider Encounter Details Date Type Department Care Team Description 02/23/2021 Orders Only [facility] Sa maicol Rose M.D. [address] [place], [place] [phone] (Wo rk) Social History Tobacco Use Types Packs/Day Years Used Date Smoking Tobacco: Former Cigarettes 0 11/1995 - 2015 Smokeless Tobacco: Former Comments: Smoked throughout my childhood . Quit [...] or relatives? How often do you attend mu-ism or Never 2021 amish services? Do you belong to any clubs or No 01/25/2022 organizations such as mu-ism groups, unions, fraternal or athletic groups, or [...] place to sleep or slept in a usp (including now)? Education Answer Date Recorded What [...] Ricardo Winkler, SILVIO, C.N.P., D.N.P. [address] [place] [address] documented as of this encounter Visit Diagnoses Not on filedocumented in this encounter Additional Health Concerns Assessment Noted Time PHQ-9 Depression Total Score: 13 12/04/2017 10:[address] documented as of this encounter Care Teams Coating Operator Relationship Specialty Start Date End Date Florin Woods M.D. PCP - General 01/04/[address] [place] [phone] documented as of this encounter
--- OUTSIDE RECORDS SUMMARY | 2022-08-16 21:27 | XMS_ITS | Encounter Summary ---
:1985 Author Organization [facility] Address [address] [place] [address] Care Team Providers Name Role Phone Yarelis Reyes M.D. Primary Care Provider [phone] Reason for Visit Reason Onset Date Comments Outpatient COVID-19 Testing 05/17/2020 Encounter Details Date Type Department Care Team Description 05/17/2020 External Outreach Department of [facility] Infect ion Upper Internal Medicine in J, D.O. Respiratory (Primary [place], [place] [address] Dx) [address] [place] [phone] Social History Tobacco Use Types Packs/Day Years [...] or relatives? How often do you attend rastafari or Never 2021 bahai services? Do you belong to any clubs or No 01/25/2022 organizations such as rastafari groups, unions, fraternal or athletic groups, or [...] place to sleep or slept in a senior living (including now)? Education Answer Date Recorded What is the highest level of school you have GED or equivale nt 05/25/2019 completed or the highest degree you have received? Sex Assigned at Date Recorded Female 06/02/2018 2:38 PM CDT documented as of this encounter Progress Notes Christelle Guzman R.N. - 05/17/2020 1:07 PM CDT Encounter created for the drive-through COVID-19 testing. documented in this encounter Plan of Treatment Upcoming Encounters Date Type Specialty Care Team Description 08/30/2022 Clinical Communication Admitting/Central Scheduling 09/02/2022 Comprehensive Visit Endocrinology Ricardo Winkler, SILVIO, C.N.P., D.N.P. [address] [place] [phone] documented as of this encounter Procedures Procedure Name Priority Date/Time Associated Diagnosis Comme nts SARS CORONAVIRUS-2 Routine 05/17/2020 2:22 PM Infection Upper Results for this RNA, V CDT Respiratory procedure are i n the results section. documented in this encounter Results SARS Coronavirus-2 RNA, V Symptomatic (05/17/2020 2:22 PM CDT) [facility] Method Time Signature SARS-CoV-2 Swab, 05/18/2020 MKTO Specimen Nasopharynx 2:25 PM CDT Source SARS CoV-2 Undetected Undetected 05/18/2020 MKTO RNA, TMA 2:25 PM CDT Comment: SARS-CoV-2 RNA absent. This result does not rule out COVID-19 in the patient, as the sensitivity of the test depends o n the timing of the specimen collection and the quality of the specim en. Result should be correlated with patient's history and clinical presentat ion. ----ADDITIONAL INFORMATION---- This test is performed using the Aptima SARS-CoV-2 assay ([employer] which has received Emergency Use Authori zation (EUA) by the U.S. Food and Drug Administration. Fact sheets for this Emergency Use Autho rization (EUA) assay can be found at the following links: For Healthcare Providers: https://www.[employer] a.gov/media/187624/download For Patients: https://www.fda.gov/media/ 917910/download Specimen Anatomical Collection Method Collection Time Receive d Time (Source) Location / / Volume Laterality Varies 05/17/2020 2:22 PM 0 7:10 (Nasopharynx) CDT PM CDT [facility] D[facility] LAB MICROBIOLOGY - GENERAL O [place] Performing Organization Address City/State/ZIP Code Phon e Number [facility]- [address] [place] [phone] [place] [address] System [address] documented in this encounter Visit Diagnoses Diagnosis Infection Upper Respiratory - Primary documented in this encounter Additional Health Concerns Infection Onset Date Last Indicated Resolved Time COVID19 Pending 05/17/2020 05/17/2020 05/18/2020 2:26 PM CDT Assessment Noted Time PHQ-9 Depression Total Score: 13 12/04/2017 10:[address] documented as of this encounter Care Teams Macadam Raker Relationship Specialty Start Date End Date Yarelis Reyes M.D. PCP - General 05/08/17 01/03/21 [address] [place] [phone] documented as of this encounter
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
--- OUTSIDE RECORDS SUMMARY | 2022-08-16 21:27 | XMS_ITS | Encounter Summary ---
:1985 Author Organization [facility] Address [address] [place] [address] Care Team Providers Name Role Phone Florin Woods M.D. Primary Care Provider Reason for Visit Reason Comments Shortness of Breath Encounter Details Date Type Department Care Team Description 11/07/2021 Nurse Triage Department of [facility] Joi Kenny Sho rtness of Breath Medicine, [facility], [facility], [place] (Work) [address] [place] [phone] Social History Tobacco Use Types Packs/Day Years [...] or relatives? How often do you attend druze or Never 2021 shinto services? Do you belong to any clubs or No 01/25/2022 organizations such as druze groups, unions, fraternal or athletic groups, or [...] this encounter Miscellaneous Notes Telephone Encounter - Joi Kenny R.N. - 11/07/2021 8:49 AM CST Chief Complaint / Reason for Call Patient is a 36 y.o. female calling regarding Shortness of Breath. Assessment Concern: Worried she has pneumonia as she feels short of breath with exertion , has had a cold and did already go through covid screening and testing was advised, no fever Present for: 11/04/2021 Home cares tried: Cold medication Calling to request: appt The recommended disposition is See a health care provider within 4 hours. Patient was warm transferred to [facility] at the clinic for further assistance. Reason for Disposition ? ? [1] MILD difficulty breathing (e.g., minimal/no SOB at rest, SOB with walking, pulse <100) AND [2] NEW-onset or WORSE than normal Protocols used: BREATHING [id number] Care Advice Patient/Caregiver understands and will follow care advice?: Yes, able to teach back CALL BACK IF: * You become worse. UNITY RELATIONS MANAGER documented in this encounter Plan of Treatment Upcoming Encounters Date Type Specialty Care Team Description 08/30/2022 Clinical Communication Admitting/Central Scheduling 09/02/2022 Comprehensive Visit Endocrinology Ricardo Winkler APRN, C.N.P., D.N.P. [address] [place] [address] documented as of this encounter Visit Diagnoses Not on filedocumented in this encounter Additional Health Concerns Assessment Noted Time PHQ-9 Depression Total Score: 13 12/04/2017 10:[address] documented as of this encounter Care Teams Retort Pre Cooker Relationship Specialty Start Date End Date Florin Woods M.D. PCP - General 01/04/[address] [place] [phone] documented as of this encounter
--- OUTSIDE RECORDS SUMMARY | 2022-08-16 21:27 | XMS_ITS | Encounter Summary ---
:1985 Author Organization [facility] Address [address] [place] [address] Care Team Providers Name Role Phone Florin Woods M.D. Primary Care Provider Reason for Visit Outpatient (Routine) - Authorized Specialty Diagnoses / Procedures Referred By Contact Refer red To Contact Nutrition Diagnoses Obesity Body Mass Index 30-39.9 Adult Mikie Mathews M.D. [facility] Region [address] [place] [address] Referral ID Status Reason Start Date Expiration Date Visits V isits Requested Authorized [id number] Authorized 12/31/2021 12/31/2022 1 1 Encounter Details Date Type Department Care Team Description 08/07/2022 Clinical Support Department of Mikie Mathews M.D. [address] [place] [address] Obesity Body Mass Nutrition in Sarahy Willis, RDN, LD [address] [place] [address] Index 30-39.9 Adult [place], [place] [address] [place] [address] Social History Tobacco Use Types Packs/Day Years Used Date Smoking Tobacco: Former Cigarettes 0 /11/1995 - 2015 Smokeless Tobacco: Never Comments: Smoked [...] or relatives? How often do you attend episcopal or Never 2021 bahai services? Do you belong to any clubs or No 01/25/2022 organizations such as episcopal groups, unions, fraternal or athletic groups, or [...] place to sleep or slept in a group home (including now)? Education Answer Date Recorded What is the highest level of school you have GED or equivale nt 05/25/2019 completed or the highest degree you have received? Sex Assigned at Date Recorded Female 06/02/2018 2:38 PM CDT documented as of this encounter Last Filed Vital Signs Vital Sign Reading Time Taken Comments Blood Pressure - - Pulse - - Temperature - - Respiratory Rate - - Oxygen Saturation - - Inhaled Oxygen Concentration - - Weight 79.2 kg (174 lb 9.7 oz) 08/07/2022 2:51 PM CDT Height 154 cm (5' 0.63) 08/07/2022 2:51 PM CDT Body Mass Index 33.4 08/07/2022 2:51 PM CDT documented in this encounter Patient Instructions Patient InstructionsSarahy Willis RDN, LD - 08/07/2022 11:00 AM CDT 1. Will aim for 150+ minutes of aerobic activity every week, ideally walk post meal consumption versus before a meal 2. Increase water to at least 75+ ounces per day 3. Recommend eating something within 1-2 hours of waking up- consider using meal replacement beverage given not hungry and concerns with eating solids early in the day 4. Recommend eating something small, even 1-2 food groups every 4-5 hours during the day for better energy and blood sugar control with pairing protein and healthy fats documented in this encounter Progress Notes Sarahy Willis RDN, LD - 08/07/2022 11:00 AM CDT REASON FOR VISIT: Medical Nutrition Therapy for obesity. Referred by: Mikie Mathews M.D. PRESENT FOR VISIT: Patient was seen alone for today's visit. NUTRITION ASSESSMENT: Typical meal pattern/daily food intake: Breakfast: skips, drinks coffee with a little creamer, 16-20 ounces of coffee which she consumes in less than 5 minutes AM Snack: none Lunch: hit or miss, most days she doesn't have a meal, may have a handful of chips or crackers a fewtimes during the day PM Snack: starting around 3 pm she craves salt and sugar Supper: variable in regards to what she makes given cooking for 7 family members and their specific needs Bedtime Snack: sometimes eats due to hunger other times due to boredom Beverages: water- 3 bottles per day, no juice or soda. 16-20 ounces coffee with creamer added. Restaurant dining: not addressed today Food preparation/grocery shopping: she makes meals. She reports she has 5 kids plus herself and significant other whom she prepares meals for. 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 Additional information pertinent to visit: Patient is currently in the Preparation stage of BehaviorChange. She reports frustration with her current weight and inability to lose weight. She reports she fluctuates between 170-180 lbs. She reports her relationship with food isn't the healthiest and hasbeen told many times to avoid all rice, pasta, potato and bread. Physical Activity: walks 2 miles per day at least 4 days per week, averages 45+ minutes. Typically she walks before she eats. She is moving all day doing chores and household tasks Supplements/pertinent medications: per EMR has an appointment tomorrow to discuss starting metformin Past medical history: reviewed and noted ANTHROPOMETRICS Weight: 79.2 kg WEIGHT HISTORY: Wt Readings from Last 6 Encounters: 08/07/22 79.2 kg 04/16/22 77.6 kg 01/25/22 78.1 kg 12/31/21 77.9 kg 04/11/21 77.4 kg 12/20/19 79.3 kg ESTIMATED NEEDS: Calculated Energy Needs Using Equations Height: 154 cm Weight Used for Equation Calculations: 79.2 kg Method to Estimate Energy Needs: Schulte-Hollandale Predictive Equation Adjustment (HB): Basal Schulte-Hol[place]ale BEE (Basal): 1538 HB Adjusted: 1538 Total Calorie Needs: 9248-7334 Estimated Protein Needs Weight Used to Calculate Protein Needs (Kg): 79.2 kg Method to Estimate Protein Needs (g/kg): 0.6 - 1 Estimated Protein Needs (Low): 48 Estimated Protein Needs (High): 79 PERTINENT LABS: not applicable SOCIAL HISTORY: Living arrangement: Lives with family. Learning barriers: none NUTRITION DIAGNOSIS: Other (comment) (Obesity) related to irregular meal pattern, lack of dietary fiber, eating for non-hunger related reasons as evidenced by patient reported intake and BMI >30 kg/m2 NUTRITION INTERVENTION: Interventions: Nutrition education, Nutrition counseling Discussed medical nutrition therapy management of obesity at length including energy balance and timing along with consistency of meals and snacks. RD discussed concerns related to not eating all day long and how this impacts her energy levels as well as her hormones and blood sugar in a negative way. Discussed healthy and balanced meal and snack examples and talked about practical ideas such as using frozen vegetables as she reports food waste when using fresh and cost challenges with purchasing all fresh produce. We also spent time discussing physical activity and its role with weight management and overall health. Specific goals set with patient; see below. Patient verbalized understanding and agreement of plan and noted no further questions or concerns at this time. MONITORING AND EVALUATION: Nutrition Indicator Indicator/Desired Outcome: 10% weight loss Patient Goal(s): 1. Will aim for 150+ minutes of aerobic activity every week, ideally walk post meal consumption versus before a meal 2. Increase water to at least 75+ ounces per day 3. Recommend eating something within 1-2 hours of waking up- consider using meal replacement beverage given not hungry and concerns with eating solids early in the day 4. Recommend eating something small, even 1-2 food groups every 4-5 hours during the day for better energy and blood sugar control with pairing protein and healthy fats FOLLOW UP PLAN: 1. Patient is provided with RDN's contact information and encouraged to call or send message via Patient Portal with questions or concerns. 2. Encouraged patient to follow up as needed per patient request. Time spent with patient (minutes): 60 Minutes MNT, 4 units documented in this encounter Plan of Treatment Upcoming Encounters Date Type Specialty Care Team Description 08/30/2022 Clinical Communication Admitting/Central Scheduling 09/02/2022 Comprehensive Visit Endocrinology Ricardo Winkler, SILVIO, C.N.P., D.N.P. [address] [place] [address] documented as of this encounter Visit Diagnoses Diagnosis Obesity Body Mass Index 30-39.9 Adult documented in this encounter Additional Health Concerns Assessment Noted Time PHQ-9 Depression Total Score: 19 12/31/2021 8:33 AM CS T documented as of this encounter Care Teams Plastic Surgeon Relationship Specialty Start Date End Date Florin Woods M.D. PCP - General 01/04/[address] [place] [address] documented as of this encounter
--- OUTSIDE RECORDS SUMMARY | 2022-08-16 21:27 | XMS_ITS | Encounter Summary ---
:1985 Author Organization [facility] Address [address] [place] [address] Care Team Providers Name Role Phone Yarelis Reyes M.D. Primary Care Provider [phone] Reason for Visit Reason Onset Date Comments Outpatient COVID-19 Testing 10/01/2020 Encounter Details Date Type Department Care Team Description 10/01/2020 External Outreach Department of Family Audrey Reynolds Infection Upper Medicine, [place] [facility], TRAVELING BUYER, Respir atory (Primary Clinic [place], [address]x) Street Professional [address] [facility] in [facility] [address] [phone] [place], [place] (Work) [address] Social History Tobacco Use Types Packs/Day Years [...] or relatives? How often do you attend shinto or Never 2021 oriental orthodox services? Do you belong to any clubs or No 01/25/2022 organizations such as shinto groups, unions, fraternal or athletic groups, or [...] documented as of this encounter Progress Notes Audrey Reynolds APRN, C.N.P. - 10/01/2020 11:33 AM CST Encounter created for the drive-through COVID-19 testing. BOOTMAKER documented in this encounter Miscellaneous Notes Addendum Note - Tony Avelar R.N., RENITA - 10/01/2020 11:33 AM HAND BOOTMAKER Addended by: TONY AVELAR on: 10/04/2020 02:20 PM Modules accepted: Orders BOOTMAKER documented in this encounter Plan of Treatment Upcoming Encounters Date Type Specialty Care Team Description 08/30/2022 Clinical Communication Admitting/Central Scheduling 09/02/2022 Comprehensive Visit Endocrinology Ricardo Winkler APRN, C.N.P., D.N.P. [address] [place] [address] documented as of this encounter Visit Diagnoses Diagnosis Infection Upper Respiratory - Primary documented in this encounter Additional Health Concerns Infection Onset Date Last Indicated Resolved Time COVID19 Pending 10/01/2020 10/01/2020 10/04/2020 2:20 PM HAND BOOTMAKER Assessment Noted Time PHQ-9 Depression Total Score: 13 12/04/2017 10:[address] documented as of this encounter Care Teams Propagator Laborer Relationship Specialty Start Date End Date Yarelis Reyes M.D. PCP - General 05/08/17 01/03/21 [address] [place] [address] documented as of this encounter
--- OUTSIDE RECORDS SUMMARY | 2022-08-16 21:27 | XMS_ITS | Encounter Summary ---
:1985 Author Organization [facility] Address [address] [place] [address] Care Team Providers Name Role Phone Florin Woods M.D. Primary Care Provider Reason for Visit Reason Comments Red Eye Encounter Details Date Type Department Care Team Description 04/25/2022 Nurse Triage Department of [facility], Jolly Mcpherson R.N. Red Eye Medicine, [facility], in [address] [place], [place], [place] [address] [place] [address] [place] [address] [phone] (work) [phone] Social History Tobacco Use Types Packs/Day Years [...] do you attend shinto or Never 2021 temple services? Do you belong to any clubs or No 01/25/2022 organizations such as shinto groups, unions, fraContraVir Pharmaceuticals or athletic groups, or school groups? How [...] place to sleep or slept in a halfway (including now)? Education Answer Date Recorded What is the highest level of school you have GED or equivale nt 05/25/2019 completed or the highest degree you have received? Sex Assigned at Date Recorded Female 06/02/2018 2:38 PM CDT documented as of this encounter Miscellaneous Notes Telephone Encounter - Camila Fermin R.N. - 04/25/2022 12:40 PM CDT Chief Complaint / Reason for Call Patient is a 36 y.o. female calling regarding Red Eye. Assessment Concern: Patient states her right eye is red and itchy. Denies discharge from the eye, pain or swelling. States she has had pink eye before and knows that's what this is. She sent message to PCP. She is wanting treatment as states her son was seen in urgent care yesterday, diagnosed with pink eye and given eye drops. Present for: Less than 24 hours Home cares tried: Wiped eye Calling to request: treatment The recommended disposition is Home Care. Advised Most cases of viral conjunctivitis are mild. The infection will usually clear up in 7 to 14days without treatment and without any long-term consequences. Mild bacterial conjunctivitis may getbetter without antibiotic treatment and without causing any complications. It often improves in 2 to5 days without treatment but can take 2 weeks to go away completely. https://www.cdc.gov/conjunctivitis/about/treatment.html Reason for Disposition ??? [1] Red eye AND [2] no blurred vision AND [3] minimal or no pain Protocols used: EYE - RED WITHOUT [id number]-IK Care Advice Patient/Caregiver understands and will follow care advice?: Yes, able to teach back EYELID CLEANSING: * Cleanse your eyelids with warm water and a clean cotton ball at least every 2 hours while awake. * This usually will keep a bacterial infection from occurring. REMOVE CONTACTS: * Remove your contact lenses; you need to switch to glasses temporarily. (Reason: to prevent damage to the cornea) * Disinfect the contacts before wearing them again (or discard them if disposable). CONTAGIOUSNESS: * Sula-eye is contagious. * Try not to touch your eyes. * Wash your hands frequently. * Do not share towels. EXPECTED COURSE: * Pinkeye with a cold usually lasts about 7 days. CALL BACK IF: * Yellow or green pus/discharge from eye occurs * Blurred vision occurs * Redness lasts over 7 days * You become worse. CARE ADVICE given per Eye - Red without Pus (Adult) guideline. HOME CARE: * You should be able to treat this at home. REASSURANCE AND EDUCATION: * You have told me that you have had no worsening of your vision and that there is no or only mild discomfort. This is reassuring. * One cause of minor eye redness is pink-eye (viral conjunctivitis). People with pinkeye may often note mild eye irritation and a water discharge. Often it affects both eyes. Colds can also cause a small amount of mucus to collect in the inner corner of the eye. It generally isn't serious. ARTIFICIAL TEARS: * Artificial tears often make red eyes feel better. Use 1 drop per eye three times a day. Use them after cleansing the eyelids. * Antibiotic and vasoconstrictor eyedrops do not help viral eye infections. documented in this encounter Plan of Treatment Upcoming Encounters Date Type Specialty Care Team Description 08/30/2022 Clinical Communication Admitting/Central Scheduling 09/02/2022 Comprehensive Visit Endocrinology Ricardo Winkler, SILVIO, C.N.P., D.N.P. [address] [place] [address] documented as of this encounter Visit Diagnoses Not on filedocumented in this encounter Additional Health Concerns Infection Onset Date Last Indicated Resolved Time COVID19 04/09/2022 04/09/2022 04/29/2022 5:15 AM CDT Assessment Noted Time PHQ-9 Depression Total Score: 19 12/31/2021 8:33 AM CS T documented as of this encounter Care Teams Weigh And Charge Worker Relationship Specialty Start Date End Date Florin Woods M.D. PCP - General 01/04/[address] [place] [address] [place] [address] documented as of this encounter
--- OUTSIDE RECORDS SUMMARY | 2022-08-16 21:27 | XMS_ITS | Encounter Summary ---
:1985 Author Organization [facility] Address [address] [place] [address] Care Team Providers Name Role Phone Yarelis Reyes M.D. Primary Care Provider Reason for Visit Reason Comments COVID Nurse Line Encounter Details Date Type Department Care Team Description 07/17/2020 Clinical Communication Division of MITUL Garcia Nurse [facility] [address] [place] [address] in [facility] [address] [place] [phone] [address] [facility] (Work) [place] [address] Social History Tobacco Use Types Packs/Day Years [...] do you attend rastafari or Never 2021 catholic services? Do you belong to any clubs [...] to sleep or slept in a senior care (including now)? Education Answer Date Recorded What is the highest level of school you have GED or equivale nt 05/25/2019 completed or the highest degree you have received? Sex Assigned at Date Recorded Female 06/02/2018 2:38 PM CDT documented as of this encounter Miscellaneous Notes Telephone Encounter - Judith Garcia R.N. - 07/17/2020 1:25 PM CDT COVID-19 Nurse Line Screening ASSESSMENT COVID 19 Screening Have you had close contact with a person who has a LABORATORY CONFIRMED case of COVID-19?: No - Continue screening. In the last 48 hours have you had any of the following symptoms?: New sore throat, New nausea, New diarrhea, New myalgias (muscle aches), New headache Do you have any urgent symptoms?: None- Patient meets criteria for testing. PLAN Endpoint recommendation: Screening positive, testing indicated, advised to be swabbed for COVID-19, sent to [place] located [address] to back of the clinic; cannot access from main parking lot. Testing hours are daily 10 am to 6 pm. When you arrive stay in your car and someone will direct you. Care Points provided: STANDARD PRECAUTIONS FOR ALL PATIENTS: Wash hands often with soap and water for at least 20 seconds, especially after blowing your nose, coughing, sneezing, or having been in a public place. If soap and water aren't available, use a hand school bus inspector that contains at least 60% alcohol. Avoid close contact with anyone who may be exhibiting respiratory symptoms such as coughing and sneezing. Avoid touching your eyes, nose and mouth. Clean and disinfect frequently touched surfaces daily. Cover your mouth and nose with a cloth face cover when around others or in public. The cloth face cover is not a substitute for social distancing. Continue to keep about 6 feet between yourself andothers. Monitor for symptoms. Do not take your temperature within 30 minutes of exercise. If your test or screen is negative and new symptoms develop please contact your provider if it has been greaterthan 72 hours since you were tested. Educational Resource: https://www.cdc.gov/coronavirus/2019-ncov/ oxwcpzt-bblmazu-uomv/index.html RECOMMENDATIONS TESTING CRITERIA IS MET: Stay home except to get medical care. Avoid public areasand public transportation. Separate yourself from other people and stay in a specific sick room ifpossible. Wear a cloth face covering, over your nose and mouth if you must be around other people even at home). Cover your nose and mouth when coughing or sneezing. Contact employer/occupational health department to notify them that they are being tested. Seek emergent care if any of the following occur: 1) Trouble breathing, 2) Bluish lips or face, 3) Persistent pain or pressure in the chest, 4) Newly confused or unable to stay alert and awake. Notify appropriate care provider if any new or worsening symptoms. You may need re-testing if it has been greater than 72 hours after a negative COVID-19 test result. Education Resources: https://www.cdc.gov/coronavirus/2019-ncov/hf-gkk-qvp-sick/zjocp-iefy-rsdo.html Education: patient/caregiver Patient/caregiver able to teach back Patient agreeable to plan of care: Yes The following references were used: [facility] novel coronavirus (COVID- 19) resources documented in this encounter Plan of Treatment Upcoming Encounters Date Type Specialty Care Team Description 08/30/2022 Clinical Communication Admitting/Central Scheduling 09/02/2022 Comprehensive Visit Endocrinology Romportl, Ricardo A, NECKTIES PAINTER, C.N.P., D.N.P. [address] [place] [address] documented as of this encounter Visit Diagnoses Not on filedocumented in this encounter Additional Health Concerns Assessment Noted Time PHQ-9 Depression Total Score: 13 12/04/2017 10:[address] documented as of this encounter Care Teams Safety Equipment Testing Specialist Relationship Specialty Start Date End Date Yarelis Reyes M.D. PCP - General 05/08/17 01/03/21 [address] [place] [address] documented as of this encounter
--- OUTSIDE RECORDS SUMMARY | 2022-08-16 21:27 | XMS_ITS | Encounter Summary ---
:1985 Author Organization [facility] Address [address] [place] [address] Care Team Providers Name Role Phone Florin Woods M.D. Primary Care Provider Reason for Visit Outpatient (Routine) - Closed Specialty Diagnoses / Procedures Referred By Contact Refer red To Contact Procedures Mikie Mathews M.D. [facility] Pelvis Transvaginal and [address] [place] [address] [place] [address] Referral ID Status Reason Start Date Expiration Date Visits Requ ested Visits Authorized [id number] Closed 12/31/2021 12/31/2022 1 1 Encounter Details Date Type Department Care Team Description 12/31/2021 Silent Schedule Department of Obstetrics Mikie Mathews M.D. and Gynecology in [address] [place] [address] 200 [facility] [address] [place] [address] [phone] Social History Tobacco Use Types Packs/Day Years [...] or relatives? How often do you attend congregational or Never 2021 yazidism services? Do you belong to any clubs or No 01/25/2022 organizations such as congregational groups, unions, fra[employer]ordic [employer] or athletic groups, or school groups? How [...] place to sleep or slept in a prison (including now)? Education Answer Date Recorded What [...] Ricardo Winkler APRN, C.N.P., D.N.P. [address] [place] [phone] documented as of this encounter Procedures Procedure Name Priority Date/Time Associated Comments Diagnosis US PELVIS RAD - Routine 12/31/2021 9:14 Mass Vagina Results for TRANSVAGINAL AND (most inpatients AM SCRAP METAL BURNER this pr ocedure TRANSABDOMINAL and all are in the outpatients) results section. documented in this encounter Results US Pelvis Transvaginal and Transabdominal (12/31/2021 9:14 AM SCRAP METAL BURNER) Anatomical Region Laterality Modality Pelvis, Ultrasound RST LOS, Ultrasound ARZ LOS, Ultrasound F LA N/A Ultrasound LOS Specimen (Source) Anatomical Location Collection Method / Collectio n Time Received Time / Laterality Volume Narrative 12/31/2021 9:14 AM SCRAP METAL BURNER Normal-appearing uterus, 6.95 x 5.80 x 4.23 cm, endometrial thickness 3.94 mm Left ovary 2.84 x 2.63 x 1.91 cm Right ovary 2.83 x 2.84 x 2.0 cm Mikie Mathews M.D. IMG US PROCEDURES documented in this encounter Visit Diagnoses Not on filedocumented in this encounter Additional Health Concerns Assessment Noted Time PHQ-9 Depression Total Score: 19 12/31/2021 8:33 AM CS T documented as of this encounter Care Teams Roastmaster Relationship Specialty Start Date End Date Florin Woods M.D. PCP - General 01/04/[address] [place] [address] [place] [phone] documented as of this encounter
--- OUTSIDE RECORDS SUMMARY | 2022-08-16 21:27 | XMS_ITS | Encounter Summary ---
:1985 Author Organization [facility] Address [address] [place] [address] Care Team Providers Name Role Phone Florin Woods M.D. Primary Care Provider Encounter Details Date Type Department Care Team Description 08/16/2022 Hospital Encounter Department of Deanovic, Palpitat ions; Laboratory Medicine Antoinette, Shortnes s Of Breath; in Bo SchroederAJus Weakness General; [place] [address] Fatigue; [address] [place], [place] [phone] Social History Tobacco Use Types Packs/Day Years [...] or relatives? How often do you attend sabianism or Never 2021 anabaptist services? Do you belong to any clubs or No 01/25/2022 organizations such as sabianism groups, unions, fraternal or athletic groups, or [...] Ricardo Winkler, SILVIO, C.N.P., D.N.P. [address] [place] [address] documented as of this encounter Procedures Procedure Name Priority Date/Time Associated Diagnosis Comme nts THYROID FUNCTION Routine 08/16/2022 10:43 AM Palpitation s Results for this CASCADE, S CDT Shortness Of Girs ath procedure are in Weakness General the results Fatigue section. Confusion CBC WITH Routine 08/16/2022 10:43 AM Palpitations Results for this DIFFERENTIAL, B CDT Shortness Of Gris ath procedure are in Weakness General the results Fatigue section. Confusion BASIC METABOLIC Routine 08/16/2022 10:43 AM Palpitations Results for this PANEL, S/P CDT Shortness Of Gris ath procedure are in Weakness General the results Fatigue section. Confusion documented in this encounter Results Thyroid Function Baxter (08/16/2022 10:43 AM CDT) athologist Signature TSH, Sensitive 3.8 0.3 - 4.2 08/16/2022 OWAT mIU/L 1:49 PM CDT Specimen Anatomical Collection Method Collection Time Receive d Time (Source) Location / / Volume Laterality Blood (Blood, 08/16/2022 10:43 08/16/2022 1:03 Venous) AM CDT PM CDT Antoinette Deng P.A.-C. LAB BLOOD ADD-ON Performing Organization Address City/State/ZIP Code Phon e Number [facility] [address] [place] [address] [facility] [place] [address] System in [place] [address] [facility] Basic Metabolic Panel (08/16/2022 10:43 AM CDT) athologist Signature Potassium, P 4.0 3.6 - [...] Organization Address City/State/ZIP Code Phon e Number [facility]- [address] [place] [address] [facility] [place] [address] System in [place] [address] (ABNORMAL) CBC with Differential, Blood (08/16/2022 10:43 AM CDT) [facility] Method Time Signature Hemoglobin 13.3 11.6 - [...] Venous) AM CDT 10:43 AM CDT Antoinette SorianoAJus LAB BLOOD ADD-ON Performing Organization Address City/State/ZIP Code Phon e Number [address] [address] [facility] [address] [place] [address] System in [place] [address] [facility] documented in this encounter Visit Diagnoses Diagnosis Palpitations Shortness Of Breath Weakness General Fatigue Confusion documented in this encounter Additional Health Concerns Assessment Noted Time PHQ-9 Depression Total Score: 19 12/31/2021 8:33 AM CS T documented as of this encounter Care Teams Direct Service Worker Relationship Specialty Start Date End Date Florin Woods M.D. PCP - General 01/04/[address] [place] [phone] documented as of this encounter
--- OUTSIDE RECORDS SUMMARY | 2022-08-16 21:27 | XMS_ITS | Encounter Summary ---
:1985 Author Organization [facility] Address [address] [place] [address] Care Team Providers Name Role Phone Florin Woods M.D. Primary Care Provider Encounter Details Date Type Department Care Team Description 04/11/2021 Clinical Communication Department of Brenton Parker Medicine, Socorro Schwartz [facility], [address] [address] [place], [place] [phone] (Work) [phone] Social History Tobacco Use Types Packs/Day Years [...] or relatives? How often do you attend restoration or Never 2021 mandaeism services? Do you belong to any clubs or No 01/25/2022 organizations such as restoration groups, unions, fraternal or athletic groups, or [...] this encounter Miscellaneous Notes Telephone Encounter - Jeancarlos Allen V. C.M.A. - 04/12/2021 10:14 AM CDT Noted visit 04.11.2021, post message timeframe Telephone Encounter - Jeancarlos Allen V., C.M.A. - 04/11/2021 12:11 PM CDT More information noted in Nurse Triage note, dated 04.11.2021. Telephone Encounter - Pino Brown - 04/11/2021 12:06 PM CDT Reason for Communication: NL called in on behalf of the patient. NL wanted a message sent back to Dr. Woods to let her know that patient was seen in the ER on 04/09 for pneumonia and is now having left-sided chest wall patient. Patient is currently on antibiotics and NL would like to know if that will help with the patient's chest wall pain or if patient should be seen in the clinic. Current Can Nursing/Provider leave a detailed message: No Did the patient refuse triage through Nurse line? (for symptom based concerns): No Action Needed: Please call patient back and advise. Name of Medication (if relevant): Unknown antibiotic documented in this encounter Plan of Treatment Upcoming Encounters Date Type Specialty Care Team Description 08/30/2022 Clinical Communication Admitting/Central Scheduling 09/02/2022 Comprehensive Visit Endocrinology Ricardo Winkler, SILVIO, C.N.P., D.N.P. [address] [place] [address] documented as of this encounter Visit Diagnoses Not on filedocumented in this encounter Additional Health Concerns Assessment Noted Time PHQ-9 Depression Total Score: 13 12/04/2017 10:[address] documented as of this encounter Care Teams Associate Java Developer Relationship Specialty Start Date End Date Florin Woods M.D. PCP - General 01/04/[address] [place] [phone] documented as of this encounter
--- OUTSIDE RECORDS SUMMARY | 2022-08-16 21:27 | XMS_ITS | Encounter Summary ---
:1985 Author Organization [facility] Address [address] [place] [address] Care Team Providers Name Role Phone Florin Woods M.D. Primary Care Provider Encounter Details Date Type Department Care Team Description 08/31/2021 Patient Self-Triage CONNECTED CARE Symptom Consular Officer, Provider Social History Tobacco Use Types Packs/Day Years [...] or relatives? How often do you attend orthodox or Never 2021 rastafarian services? Do you belong to any clubs or No 01/25/2022 organizations such as orthodox groups, unions, fraternal or athletic groups, or [...] minutes do you engage in exercise at is 30 min 01/25/2022 level? Stress Answer [...] Winkler APRN, C.N.P., D.N.P. [address] [place] [address] documented as of this encounter Visit Diagnoses Not on filedocumented in this encounter Additional Health Concerns Assessment Noted Time PHQ-9 Depression Total Score: 13 12/04/2017 10:23 AM C documented as of this encounter Care Teams Ethylbenzene Oxidizer Relationship Specialty Start Date End Date Florin Woods M.D. PCP - General 01/04/[address] [place] [phone] documented as of this encounter
--- OUTSIDE RECORDS SUMMARY | 2022-08-16 21:27 | XMS_ITS | Encounter Summary ---
:1985 Author Organization [facility] Address [address] [place] [address] Care Team Providers Name Role Phone Yarelis Reyes M.D. Primary Care Provider Reason for Visit Reason Onset Date Comments Outpatient COVID-19 Testing 07/17/2020 Encounter Details Date Type Department Care Team Description 07/17/2020 External Outreach Department of Riccardo Hills Infect ion Upper Internal Medicine in J, D.O. Respiratory (Primary [place], [place] [address] Dx) [address] [place] [phone] Social History Tobacco Use Types Packs/Day Years [...] or relatives? How often do you attend adventist or Never 2021 cheondoism services? Do you belong to any clubs or No 01/25/2022 organizations such as adventist groups, unions, fraternal or athletic groups, or [...] place to sleep or slept in a penitentiary (including now)? Education Answer Date Recorded What is the highest level of school you have GED or equivale nt 05/25/2019 completed or the highest degree you have received? Sex Assigned at Date Recorded Female 06/02/2018 2:38 PM CDT documented as of this encounter Progress Notes Jennifer Paredes RCarrington. - 07/17/2020 2:14 PM CDT Encounter created for the drive-through COVID-19 testing. documented in this encounter Plan of Treatment Upcoming Encounters Date Type Specialty Care Team Description 08/30/2022 Clinical Communication Admitting/Central Scheduling 09/02/2022 Comprehensive Visit Endocrinology Ricardo Winkler APRN, C.N.P., D.N.P. [address] [place] [phone] documented as of this encounter Procedures Procedure Name Priority Date/Time Associated Diagnosis Comme nts SARS CORONAVIRUS-2, Routine 07/17/2020 5:41 PM Re sults for this PCR CDT procedure are i n the results section. documented in this encounter Results SARS Coronavirus-2, PCR (07/17/2020 5:41 PM CDT) [facility] Method Time Signature SARS Nasopharynx 07/19/2020 DTL Coronavirus-2 12:08 AM CDT Source SARS Undetected Undetected 07/19/2020 DTL Coronavirus-2 12:08 AM CDT , PCR Comment: SARS-CoV-2 RNA absent. This result does not rule out COVID-19 in the patient, as the sensitivity of the test depends o n the timing of the specimen collection and quality of the specimen. Result should be correlated with patient's history and clinical presentat ion. ----ADDITIONAL INFORMATION---- This test was developed and its performa nce characteristics determined by [facility] in a manner co nsistent with CLIA requirements. Independent review by the U.S. Food and Drug Administration is pending. Visit the CDC website: https://www.cdc.gov/coronavirus/ ?? for the most recent guidelines on [place] virus testing. Fact Sheet for Healthcare Providers: (https://www.ADCentricity/it-mmfil es/ Provider_Fact_Sheet_for_[facility]_COVI D-19.pdf) Fact Sheet for Patients: (https://www.ADCentricity/it-mmfil es/ Patient_Fact_Sheet_for_COVID-19.pdf) Specimen Anatomical Collection Method Collection Time Receive d Time (Source) Location / / Volume Laterality Varies 07/17/2020 5:41 PM 0 1:58 CDT PM CDT Riccardo Hills D.O. LAB MICROBIOLOGY - GENERAL O RDERAMAXWELL Performing Organization Address City/State/ZIP Code Phon e Number [facility] - [address] [place], [place] [address] [facility] [place] [address] [facility] [address] documented in this encounter Visit Diagnoses Diagnosis Infection Upper Respiratory - Primary documented in this encounter Additional Health Concerns Infection Onset Date Last Indicated Resolved Time COVID19 Pending 07/17/2020 07/17/2020 07/18/2020 6:28 AM CDT Assessment Noted Time PHQ-9 Depression Total Score: 13 12/04/2017 10:[address] documented as of this encounter Care Teams Lemon Grower Relationship Specialty Start Date End Date Yarelis Reyes M.D. PCP - General 05/08/17 01/03/[address] [phone] documented as of this encounter
--- OUTSIDE RECORDS SUMMARY | 2022-08-16 21:27 | XMS_ITS | Encounter Summary ---
:1985 Author Organization [facility] Address [address] [place] [address] Care Team Providers Name Role Phone Florin Woods M.D. Primary Care Provider Reason for Visit Reason Comments Headache Headache x [address] ated it feels like a tension headache, body aches, vertigo feeling while lying down, with swollen lymph nodes Other Patient requesting a second Xray of her left arm as she had a fall on 01/08/22 and went to [facility], pain is continuing Encounter Details Date Type Department Care Team Description 01/25/2022 Office Visit Department of Robe Pizano hadenopathy Cervical Medicine, Luisa HoffmannBAmarisSAmaris, (Primar y Dx) Clinic, in Efren Quintanilla [place] [address] [facility] 300 [facility] [place], [place] [phone] Social History Tobacco Use Types Packs/Day Years Used Date Smoking Tobacco: Former Cigarettes 0 11/1995 - 2016 Smokeless Tobacco: Never Comments: Smoked throughout my [...] or relatives? How often do you attend religious or Never 2021 presybeterian services? Do you belong to any clubs or No 01/25/2022 organizations such as religious groups, unions, fraOmnireliant or athletic groups, or school groups? How [...] Sign Reading Time Taken Comments Blood Pressure 107/72 01/25/2022 9:53 AM INDUSTRIAL RENDERER Pulse 71 01/25/2022 9:53 AM INDUSTRIAL RENDERER Temperature 36.1 ??C (97 ??F) 01/25/2022 9:53 AM INDUSTRIAL RENDERER Respiratory Rate 16 01/25/2022 9:53 AM INDUSTRIAL RENDERER Oxygen Saturation - - Inhaled Oxygen Concentration - - Weight 78.1 kg (172 lb 4.6 oz) 01/25/2022 9:53 AM INDUSTRIAL RENDERER Height - - Body Mass Index 32.95 12/31/2021 8:31 AM INDUSTRIAL RENDERER documented in this encounter Progress Notes Robe Del Valle M.B.B.S., Manuelito. - 01/25/2022 10:00 AM CST SUBJECTIVE CHIEF COMPLAINT / REASON FOR VISIT Keily Ng is a 36 y.o. female who presents for evaluation of Headache (Headache x 5 days patient stated it feels like a tension headache, body aches, vertigo feeling while lying down, with swollen lymph nodes) and Other (Patient requesting a second Xray of her left arm as she had a fall on 01/08/22 and went to [facility] urgent care, pain is continuing). HISTORY OF PRESENT ILLNESS Keily Ng is a 36-year-old female with a history of chronic headaches and fibromyalgia. Sheis here with 4 days of swollen tender lymph nodes in her neck. She reports associated headaches, malaise and some nausea and dizziness. She denies any fever, chills, cough or shortness of breath. The following portions of the patient's history were reviewed and updated as appropriate: allergies,current medications, family history, medical history, social history, surgical history and problem list. REVIEW OF SYSTEMS Pertinent items are noted in HPI. OBJECTIVE BP 107/72 (BP Location: Left arm, Patient Position: Sitting) Pulse 71 Temp 36.1 ??C (Temporal) Resp 16 Wt 78.1 kg LMP 01/24/2022 BMI 32.95 kg/m?? PHYSICAL EXAM General Appearance: healthy, alert, no distress, cooperative. Skin: skin color, texture, turgor normal, no suspicious rashes or lesions. Head: normocephalic, no masses, lesions, tenderness or abnormalities. Eyes: Anicteric sclera. Pupils are equally round and reactive to light. Extraocular movements are intact. . Oropharynx: lips, mucosa, and tongue normal, teeth and gums normal, oropharynx normal. Neck: Supple, multiple anterior and posterior cervical lymph nodes palpable; thyroid symmetric, normal size, no bruits. Lungs: clear to auscultation. Musculoskeletal: Range of motion normal in hips, knees, shoulders, and spine. ASSESSMENT / PLAN #1 Lymphadenopathy Cervical 36-year-old female here with palpable lymph nodes. Symptoms have been ongoing for 4 days. Will manage with watchful waiting and consider further evaluation after 4-6 weeks. STRIAL RENDERER documented in this encounter Plan of Treatment Upcoming Encounters Date Type Specialty Care Team Description 08/30/2022 Clinical Communication Admitting/Central Scheduling 09/02/2022 Comprehensive Visit Endocrinology Ricardo Winkler APRN, C.N.P., D.N.P. [address] [place] [phone] documented as of this encounter Visit Diagnoses Diagnosis Lymphadenopathy Cervical - Primary documented in this encounter Additional Health Concerns Assessment Noted Time PHQ-9 Depression Total Score: 19 12/31/2021 8:33 AM CS T documented as of this encounter Care Teams Miller Distillery Relationship Specialty Start Date End Date Florin Woods M.D. PCP - General 01/04/[address] [place] [phone] documented as of this encounter
--- OUTSIDE RECORDS SUMMARY | 2022-08-16 21:27 | XMS_ITS | Encounter Summary ---
:1985 Author Organization [facility] Address [address] [place] [address] Care Team Providers Name Role Phone Florin Woods M.D. Primary Care Provider Reason for Referral Outpatient (Routine) - Closed Specialty Diagnoses / Procedures Referred By Contact Refer red To Contact Diagnoses Palpitations Shortness Of Breath Weakness General Fatigue Confusion Antoinette Deng P.A.-C. [facility] Procedures ECG 12 Lead 300 [facility] [place] [address] Referral ID Status Reason Start Date Expiration Date Visits Requ ested Visits Authorized [id number] Closed 08/16/2022 08/16/2023 1 1 Reason for Visit Outpatient (Routine) - Closed Specialty Diagnoses / Procedures Referred By Contact Refer red To Contact Diagnoses Palpitations Shortness Of Breath Weakness General Fatigue Confusion Antoinette Deng P.A.-C. [facility] Procedures ECG [address] [place] [address] Referral ID Status Reason Start Date Expiration Date Visits Requ ested Visits Authorized [id number] Closed 08/16/2022 08/16/2023 1 1 Encounter Details Date Type Department Care Team Description 08/16/2022 Hospital Encounter Department of Janneth Deng ions; Laboratory Medicine Nghia Curry s Of Breath; in Bernardo Schroeder Weakness General; [place] [address] Fatigue; [address] [facility] ROVERTO SCHROEDER Confusion ROVERTO SCHROEDER [phone] Social History Tobacco Use Types Packs/Day [...] or relatives? How often do you attend judaism or Never 2021 mosque services? Do you belong to any clubs or No 01/25/2022 organizations such as judaism groups, unions, fraternal or athletic groups, or [...] place to sleep or slept in a care home (including now)? Education Answer Date Recorded [...] Winkler APRN, C.N.P., D.N.P. [address] [place] [address] documented as of this encounter Procedures Procedure Name Priority Date/Time Associated Diagnosis Comme nts ECG Routine 08/16/2022 10:51 AM Palpitations Results for this CDT Shortness Of Gris ath procedure are in the Weakness General results section. Fatigue Confusion documented in this encounter Results ECG 12 Lead (08/16/2022 10:51 AM CDT) P athologist Signature Ventricular Rate 57 BPM MUSE ECG/Min [place] Interval 152 ms MUSE QRSD Interval 82 ms MUSE QT Interval 418 ms MUSE QTC Interval 406 ms MUSE P [place] 64 degrees MUSE R [place] 40 degrees MUSE T Wave [place] 16 degrees MUSE Specimen Anatomical Collection Method [...] Code Phon e Number MUSE MUSE NA documented in this encounter Visit Diagnoses Diagnosis Palpitations Shortness Of Breath Weakness General Fatigue Confusion documented in this encounter Additional Health Concerns Assessment Noted Time PHQ-9 Depression Total Score: 19 12/31/2021 8:33 AM CS T documented as of this encounter Care Teams Entry Table Operator Relationship Specialty Start Date End Date Florin Woods M.D. PCP - General 01/04/[address] [place] [address] Yessica Schroeder, ROVERTO [phone] documented as of this encounter
--- OUTSIDE RECORDS SUMMARY | 2022-08-16 21:27 | XMS_ITS | Encounter Summary ---
:1985 Author Organization [facility] Address [address] [place] [address] Care Team Providers Name Role Phone Florin Woods M.D. Primary Care Provider Reason for Visit Reason Comments Follow-up Encounter Details Date Type Department Care Team Description 08/15/2022 Nurse [facility] Follow-up Medicine, [facility] [place], [facility] in [facility] field operations technician [address] [place] [phone] Social History Tobacco Use Types Packs/Day Years [...] or relatives? How often do you attend samaritan or Never 2021 baptism services? Do you belong to any clubs or No 01/25/2022 organizations such as samaritan groups, unions, fraternal or athletic groups, or [...] place to sleep or slept in a alf (including now)? Education Answer Date Recorded What is the highest level of school you have GED or equivale nt 05/25/2019 completed or the highest degree you have received? Sex Assigned at Date Recorded Female 06/02/2018 2:38 PM CDT documented as of this encounter Miscellaneous Notes Telephone Encounter - Soraida Morales R.N., [facility] - 08/15/2022 2:17 PM CDT Chief Complaint / Reason for Call Patient is a 36 y.o. female calling regarding Follow-up. Assessment Concern: Patient calling in and states that she had a cold prior to receiving hepatitis B vaccine last . She reports that she had a headache over the weekend which is not unusual for her. However since Friday she has been having chest pain. She was seen in ED in [place] and placed on Prednisone and Zpak. She reports that she has been having her knees buckle while walking, ankle buckling andfell, and excessive sweating. She reports having lightheadedness, dizziness, and tingling in legs. Having to force herself to eat. Hands and feet feel heavy at times. She gets bouts of hot flashes and weakness/dizziness varies throughout the day. Home cares tried: Monitoring symptoms Calling to request: Advice The recommended disposition is See a health care provider within 24 hours. Reviewed with ferry pilot provider who suggested that she treat her symptoms symptomatically; rest, hydration and indicated that theher symptoms are likely not related to the vaccine. Patient feels strongly that they are and not sure what to do from here. Advised that she make an appointment for follow up. Patient voiced understanding and agrees with plan. Patient was warm transferred to[place] Patient Appointment Machine Scallop Cutter at the clinic for further assistance. Reason for Disposition [1] MODERATE weakness (i.e., interferes with work, school, normal activities) AND [2] persists >3 days Protocols used: Weakness (Generalized) and [id number] Care Advice Patient/Caregiver understands and will follow care advice?: Yes, able to teach back CALL BACK IF: * You become worse documented in this encounter Plan of Treatment Upcoming Encounters Date Type Specialty Care Team Description 08/30/2022 Clinical Communication Admitting/Central Scheduling 09/02/2022 Comprehensive Visit Endocrinology Ricardo Winkler, SILVIO, C.N.P., D.N.P. [address] [place] [address] documented as of this encounter Visit Diagnoses Not on filedocumented in this encounter Additional Health Concerns Assessment Noted Time PHQ-9 Depression Total Score: 19 12/31/2021 8:33 AM CS T documented as of this encounter Care Teams Timber Appraiser Relationship Specialty Start Date End Date Florin Woods M.D. PCP - General 01/04/[address] [place] [phone] documented as of this encounter
--- OUTSIDE RECORDS SUMMARY | 2022-08-16 21:27 | XMS_ITS | Encounter Summary ---
:1985 Author Organization [facility] Address [address] [place] [address] Care Team Providers Name Role Phone Florin Woods M.D. Primary Care Provider Reason for Visit Reason Comments COVID Nurse Line Encounter Details Date Type Department Care Team Description 11/07/2021 Clinical Communication Division of Otilia Torrez Nurse Line [facility] S, R.N. [facility] [phone] [place], in (Work) [place], [place] [address] [place] [address] Social History Tobacco Use Types Packs/Day Years [...] or relatives? How often do you attend pentecostalism or Never 2021 jewish services? Do you belong to any clubs or No 01/25/2022 organizations such as pentecostalism groups, unions, fraCustomcells or athletic groups, or school groups? How [...] this encounter Miscellaneous Notes Telephone Encounter - Otilia Torrez R.N. - 11/07/2021 8:24 AM CST COVID-19 Nurse Line Screening ASSESSMENT Initial Screening Pathway Select appropriate pathway: : Adult In the last 48 hours, have you had a fever* OR symptoms that are unrelated to a preexisting illness?: New cough,New shortness of breath,New respiratory distress (fast breathing),New muscle aches (non-productive, dry cough; tired; run down; sleeping more than usual; slight runny nose; mucus coughing up is yellow) COVID Symptomatic Screening Do you have any of the following urgent symptoms?: No urgent symptoms noted (Continue Screening) (lower left side of chest by diaphragm - feels like it's all in my lungs; hurts to breathe in L lung from mid shoulder to bottom of diaphragm - denies need for urgent evaluation. Amenable to further triage with primary care nurseline.) Have you received a COVID-19 vaccine in the last 72 hours? : No vaccine received (Continue Screening) Have you had close contact* with a person who has a LABORATORY CONFIRMED case of COVID-19 in the past 14 days?: No (Continue Screening) Have you tested positive for COVID-19 in the last 45 days?: No. COVID-19 testing is indicated (Continue Screening for Additional Testing) Additional Screening for Influenza, RSV and Strep Select appropriate region: : [place] Do you have any of the following respiratory syntonical virus (RSV) complications? : No complications noted (Continue Screening) Do you have any of the following high risk influenza criteria?: No criteria noted (Continue Screening) (prediabetic; PCOS) Are all of the following Strep criteria met? : Age is between 18-75 years,No, all criteria are not met. Influenza tesing is indicated. (End Screening) Symptom Onset Date of symptom onset: 11/04/21 Testing Recommendation Endpoint Is testing recommended? : Recommended to test Further Triage Needs Any further triage needs? : Yes, transferring to nurse triage line for additional symptom evaluation PLAN Endpoint recommendation: Testing indicated, patient declining testing. and Transfer to Primary Care Nurseline for further assessment Keily is requesting to speak with a primary care triage nurse regarding if she can be offered an appointment to evaluate for pneumonia, as her symptoms are consistent with previous pneumonia episodes.She knows to call us back if she wishes to get tested for COVID and Influenza. Standard Care Points -Get a COVID -19 vaccine as soon as you can if not fully vaccinated. -Wash hands frequently with soap and water, use hand major sales associate if soap and water aren't available. -Wear a mask over your nose and mouth to help protect yourself and others if not fully vaccinated and having no symptoms -Stay 6 feet between yourself and others who don't live with you. -Avoid crowds and poorly ventilated indoor spaces. -Seek emergent care if any of the following occur Trouble breathing Bluish lips or face Persistent pain or pressure in the chest New confusion or inability to rouse. -Notify your regular care provider of any new or worsening symptoms. Symptomatic Carepoints: Stay home and separate yourself from others and stay in a specific sick room if able. Avoid sharing personal or household items. Rest. Hydrate. Take Acetaminophen/Ibuprofen asneeded to control fever and muscles aches. Use over the counter medications as needed for other symptoms. Education: Patient/caregiver able to teach back Patient agreeable to plan of care: Yes The following references were used: [facility] novel coronavirus (COVID- 19) resources Nursing judgement T CLEANER documented in this encounter Plan of Treatment Upcoming Encounters Date Type Specialty Care Team Description 08/30/2022 Clinical Communication Admitting/Central Scheduling 09/02/2022 Comprehensive Visit Endocrinology Ricardo Winkler, SILVIO, C.N.P., D.N.P. [address] [place] [address] documented as of this encounter Visit Diagnoses Not on filedocumented in this encounter Additional Health Concerns Assessment Noted Time PHQ-9 Depression Total Score: 13 12/04/2017 10:[address] documented as of this encounter Care Teams Sales Representative Adding Machines Relationship Specialty Start Date End Date Florin Woods M.D. PCP - General 01/04/[address] [place] [phone] documented as of this encounter
--- OUTSIDE RECORDS SUMMARY | 2022-08-16 21:27 | XMS_ITS | Encounter Summary ---
:1985 Author Organization [facility] Address [address] [place] [address] Care Team Providers Name Role Phone Florin Woods M.D. Primary Care Provider Reason for Visit Reason Comments COVID-19 Remote Patient Monitoring Positive on Friday- slight cough, fever, week, dizzy, no appetite, loss of taste and smell. Pain left side rib cage. Appointment Request (Routine) - Closed Specialty Diagnoses / Procedures Referred By Contact Refer red To Contact Family Medicine Referral ID Status Reason Start Date Expiration Date Visits Requ ested Visits Authorized [id number] Closed 04/16/2022 04/16/2023 1 1 Encounter Details Date Type Department Care Team Description 04/16/2022 Office Visit Department of Florin Parker Res piratory Infection MedicineSocorro M.D. Type Unknown Due To Clinic, in [address] COVID-19 (Primary Dx) [place], [place] [address] [facility] [address] [place], [place] [phone] (Work) [phone] Social History Tobacco Use Types Packs/Day Years [...] or relatives? How often do you attend denominational or Never 2021 jew services? Do you belong to any clubs or No 01/25/2022 organizations such as denominational groups, unions, fraMattersight or athletic groups, or school groups? How [...] place to sleep or slept in a mcc (including now)? Education Answer Date Recorded What is the highest level of school you have GED or equivale nt 05/25/2019 completed or the highest degree you have received? Sex Assigned at Date Recorded Female 06/02/2018 2:38 PM CDT documented as of this encounter Last Filed Vital Signs Vital Sign Reading Time Taken Comments Blood Pressure 108/69 04/16/2022 9:17 AM CDT average Pulse 82 04/16/2022 9:17 AM CDT Temperature 36.1 ??C (97 ??F) 04/16/2022 9:17 AM CDT Respiratory Rate 16 04/16/2022 9:17 AM CDT Oxygen Saturation 98% 04/16/2022 9:17 AM CDT Inhaled Oxygen Concentration - - Weight 77.6 kg (170 lb 15.5 oz) 04/16/2022 9:17 AM CDT Height - - Body Mass Index 32.7 12/31/2021 8:31 AM PANTOGRAPH SETTER documented in this encounter Progress Notes Florin Woods M, M.D. - 04/16/2022 9:30 AM CDT Progress Note Patient is 36 years old female with past medical history significant for fibromyalgia, tension headache, depression, bipolar, cervical dysplasia, former smoker who presented today to the clinic for evaluation of COVID infection. Patient was tested positive for COVID since 04/09/2022. Patient stated that she has been having symptoms of redness in her arms, chest and legs. Patient denies rash or itchiness. Patient stated that she had diarrhea for 5 days that has resolved. She also has mild cough. She stated that she feels very dizzy and weak as well. She also admitted to have muscle ache mostly around the left posterior rib area. She denies any injury. She stated that she lost her smell and taste sensation as well. She denies any fever, shortness of breath, chest pain, nausea, vomiting, abdominal pain, headache. She denies smoking cigarette. She denies history of asthma or COPD. She has not received COVID vaccine. Allergies Allergen Reactions ??? Bupropion Hcl Anxiety flush, anger Current Outpatient Medications: ??? acetaminophen (TYLENOL) 500 mg capsule, Take by mouth every 6 (six) hours as needed for pain., Disp: , Rfl: ??? cyclobenzaprine (FLEXERIL) 5 mg tablet, cyclobenzaprine 5 mg tablet TAKE ONE TABLET BY MOUTH AT BEDTIME NEEDED FOR MUSCLE SPASM, Disp: , Rfl: ??? naproxen sodium (ALEVE/ANAPROX) 220 mg tablet, Take 220 mg by mouth., Disp: , Rfl: ??? ondansetron (ZOFRAN) 4 mg tablet, Take 4 mg by mouth every 8 (eight) hours as needed for nausea or vomiting., Disp: , Rfl: Past Medical History: Diagnosis Date ??? Abnormal [...] recurrent bacterial vaginitis Social History Tobacco Use ??? Smoking status: Former Smoker Packs/day: 0.00 Types: Cigarettes Start date: 11/24/1995 Quit date: 2016 Years since quittin.3 ??? Smokeless tobacco: Never Used ??? Tobacco comment: Smoked throughout my childhood. Quit and restarted a couple times Substance Use Topics ??? Alcohol use: Yes Types: 1 Glasses of wine per week Comment: I dont drink often. Maybe twice a month ??? Drug use: Yes Types: Marijuana REVIEW OF SYSTEMS Vitals: 04/16/22 0917 BP: 108/69 BP Location: Right arm Patient Position: Sitting Cuff Size: Large Pulse: 82 Resp: 16 Temp: 36.1 ??C TempSrc: Temporal SpO2: 98% Weight: 77.6 kg Constitutional Appearance: She is well-developed. HENT Head: Normocephalic and atraumatic. Right Ear: External ear normal. Left Ear: External ear normal. Nose: Nose normal. Eyes Conjunctiva/sclera: Conjunctivae normal. Pupils: Pupils are equal, round, and reactive to light. Cardiovascular Rate and Rhythm: Normal rate and regular rhythm. Heart sounds: Normal heart sounds. Pulmonary Effort: Pulmonary effort is normal. No respiratory distress. Breath sounds: Normal breath sounds. Abdominal General: Bowel sounds are normal. There is no distension. Palpations: Abdomen is soft. There is no mass. Tenderness: There is no abdominal tenderness. There is no guarding. Musculoskeletal General: Normal range of motion. Cervical back: Normal range of motion and neck supple. Comments: Tenderness in the left lower posterior rib area. Skin General: Skin is warm and dry. Comments: Skin noticed to be erythematous in the upper extremity chest and legs. Mild micro papularrash Neurological Mental Status: She is alert and oriented to person, place, and time. Deep Tendon Reflexes: Reflexes are normal and symmetric. Psychiatric Behavior: Behavior normal. Keily was seen today for covid-19 remote patient monitoring. Diagnoses and all orders for this visit: Respiratory Infection Type Unknown Due To COVID-19 We discussed that most of her symptoms are COVID related. Given her symptoms and physical exam, I did not appreciate any red flag signs or symptoms today at the visit. We advised to continue conservative management at this time. Discussed the need of COVID vaccine we did the next 90 days. Please wear a mask at all times. Symptom control: - Drink plenty of fluids (water, Powerade, Pedialyte, tea). - Alternate between Tylenol or Motrin for fevers. - You can use cough drops or cough syrup. If you live with other people: - Wash your hands frequently. - Clean commonly touched objects (door knobs, refrigerator handle, phone, water faucets) frequently. - Do not share cups, straws, or forks/spoons/knives. - Do not go near elderly relatives. - If you need to cough, cough into your elbow. - If you need to sneeze, sneeze into your elbow. - Even at home, remain at least 6 feet away from any other person at all times. Return to the Emergency Department, if you develop: - Shortness of breath, trouble breathing - Loss of consciousness - Unable to keep down liquids, due to vomiting - No urination for more than 12 hours - Confusion documented in this encounter Plan of Treatment Upcoming Encounters Date Type Specialty Care Team Description 08/30/2022 Clinical Communication Admitting/Central Scheduling 09/02/2022 Comprehensive Visit Endocrinology Ricardo Winkler APRN, C.N.P., D.N.P. [address] [place] [address] documented as of this encounter Visit Diagnoses Diagnosis Respiratory Infection Type Unknown Due T o COVID-19 - Primary documented in this encounter Additional Health Concerns Infection Onset Date Last Indicated Resolved Time COVID19 04/09/2022 04/09/2022 04/29/2022 5:15 AM CDT Assessment Noted Time PHQ-9 Depression Total Score: 12/31/2021 8:33 AM CS T documented as of this encounter Care Teams Pump Assembler Relationship Specialty Start Date End Date Florin Woods M.D. PCP - General 01/04/[address] [place] [address] ROVERTO [place] [phone] documented as of this encounter
--- OUTSIDE RECORDS SUMMARY | 2022-08-16 21:27 | XMS_ITS | Encounter Summary ---
:1985 Author Organization [facility] Address [address] [place] [address] Care Team Providers Name Role Phone Florin Woods M.D. Primary Care Provider Reason for Referral Outpatient (Routine) - Closed Specialty Diagnoses / Procedures Referred By Contact Refer red To Contact Diagnoses Palpitations Shortness Of Breath Weakness General Fatigue Confusion Antoinette Deng P.A.-C. [facility] Procedures ECG [address] [place] [address] Referral ID Status Reason Start Date Expiration Date Visits Requ ested Visits Authorized [id number] Closed 08/16/2022 08/16/2023 1 1 Reason for Visit Reason Comments Post Ed Visit Follow-up Emergency room on 08/12/22. O n 08/12/22 numbness and tingling in arms and legs. Having dorothea ts of sudden severe weakness and shortness of breath. Loss of consciousness. Knees will just give out. Chest pain. Starte d after the Hepatitis B vaccine on 08/08/22. Appointment Request (Routine) - Closed Specialty Diagnoses / Procedures Referred By Contact Refer red To Contact Family Medicine Referral ID Status Reason Start Date Expiration Date Visits Requ ested Visits Authorized [id number] Closed 08/15/2022 08/15/2023 1 1 Encounter Details Date Type Department Care Team Description 08/16/2022 Office Visit Department of Mendy Deng ( Primary Dx); [facility] Nancy Curry Shortness Of Breath; Medicine in [place], [address] [place] [address] Weakness General; [place] ROVERTO SCHROEDER Fatigue; [address] [facility] [address] Confusion; ROVERTO SCHROEDER [phone] [place] [phone] (Work) [phone] Social History Tobacco Use Types Packs/Day Years [...] or relatives? How often do you attend buddhist or Never 2021 taoism services? Do you belong to any clubs or No 01/25/2022 organizations such as buddhist groups, unions, fraternal or athletic groups, or [...] place to sleep or slept in a snf (including now)? Education Answer Date Recorded What [...] Mass Index 32.91 08/16/2022 9:27 AM CDT documented in this encounter Plan of Treatment Upcoming Encounters Date Type Specialty Care Team Description 08/30/2022 Clinical Communication Admitting/Central Scheduling 09/02/2022 Comprehensive Visit Endocrinology Ricardo Winkler, SILVIO, C.N.P., D.N.P. [address] [place] [phone] Pending Results Name Type Priority Associated Diagnoses Date/Ti me Bacterial Culture, Microbiology Routine Palpitations 08/16/2022 10:39 AM Aerobic + Susc, Urine Shortness Of Breath CDT Weakness General Fatigue Confusion Scheduled Orders Name Type Priority Associated Diagnoses Order S chedule Bacterial Culture, Microbiology Routine Palpitations Expected: 08/16/2022 Aerobic + Susc, Urine Shortness Of Breath (Approximate), Weakness General Expires: 11/15/2023 Fatigue Confusion documented as of this encounter Results ECG 12 Lead (08/16/2022 10:51 AM CDT) P athologist Signature Ventricular Rate 57 BPM MUSE ECG/Min OR Interval 152 ms MUSE QRSD Interval 82 ms MUSE QT Interval 418 ms MUSE QTC Interval 406 ms MUSE P [place] 64 degrees MUSE R [place] 40 degrees MUSE T Wave [place] 16 degrees MUSE Specimen Anatomical Collection Method [...] Organization Address City/State/ZIP Code Phon e Number [facility] NA Thyroid Function [place] (08/16/2022 10:43 AM CDT) P athologist Signature TSH, Sensitive 3.8 0.3 - 4.2 08/16/2022 [place] mIU/L 1:49 PM CDT Specimen Anatomical Collection Method Collection Time Receive d Time (Source) Location / / Volume Laterality Blood (Blood, 08/16/2022 10:43 08/16/2022 1:03 Venous) AM CDT PM CDT Antoinette Deng P.A.-C. LAB BLOOD ADD-ON Performing Organization Address City/State/ZIP Code Phon e Number [facility] [address] [place] [address] [place] [address] System in [place] [address] Basic Metabolic Panel (08/16/2022 10:43 AM CDT) [...] Organization Address City/State/ZIP Code Phon e Number [facility] [address] [place] [address] [facility] [place] [place] [address] System in [place] [address] (ABNORMAL) CBC with Differential, Blood (08/16/2022 10:43 AM CDT) [facility] Method Time Signature Hemoglobin 13.3 11.6 - [...] Organization Address City/State/ZIP Code Phon e Number [facility]- [facility] [address] [place] [address] [address] (ABNORMAL) Urinalysis with Microscopic: Urine, Midstream (08/16/2022 10:39 AM CDT) Analysis Performed At [facility] Time Signature Source Urine, Urine, 08/16/2022 FB60 [...] 8.0 08/16/2022 11:02 AM CDT [address]60 Specific [place] >=1.030 1.001 - 1.035 08/16/2022 11:02 AM [...] Midstream) AM CDT 10:47 AM CDT Antoinette Ford.A.-C. LAB URINE ORDERABLES Performing Organization Address City/State/ZIP Code Phon e Number [facility]- [address] [place] [address] [place] [facility] [address] [place] [address] [address] documented in this encounter Visit Diagnoses Diagnosis Palpitations - Primary Shortness Of Breath Weakness General Fatigue Confusion [place] Palpitations Shortness Of Breath Weakness General Fatigue Confusion documented in this encounter Additional Health Concerns Assessment Noted Time PHQ-9 Depression Total Score: 19 12/31/2021 8:33 AM CS T documented as of this encounter Care Teams Field Sales Specialist Relationship Specialty Start Date End Date Florin Woods M.D. PCP - General 01/04/[address] [place] [address] [place]O [place] [phone] documented as of this encounter
--- OUTSIDE RECORDS SUMMARY | 2022-08-16 21:27 | XMS_ITS | Encounter Summary ---
:1985 Author Organization [facility] Address [address] [place] [address] Care Team Providers Name Role Phone Yarelis Reyes M.D. Primary Care Provider [phone] Reason for Visit Reason Comments COVID Nurse Line Encounter Details Date Type Department Care Team Description 05/17/2020 Clinical Communication Central Appointment Line, Yohannes BAUMAN Nurse Line Office in [facility] [address] [place] [address] Social History Tobacco Use Types Packs/Day Years [...] do you attend congregational or Never 2021 temple services? Do you belong to any clubs or No 01/25/2022 organizations such as congregational groups, unions, fraternal or athletic groups, or [...] place to sleep or slept in a long term (including now)? Education Answer Date Recorded What is the highest level of school you have GED or equivale nt 05/25/2019 completed or the highest degree you have received? Sex Assigned at Date Recorded Female 06/02/2018 2:38 PM CDT documented as of this encounter Miscellaneous Notes Telephone Encounter - Claudette Penn M.S.Goran., R.N. - 05/17/2020 12:40 PM CDT COVID-19 Nurse Line Screening ASSESSMENT COVID 19 Screening Have you had close contact with a person who has a LABORATORY CONFIRMED case of COVID-19?: No - Continue screening. In the last 48 hours have you had any of the following symptoms?: New shortness of breath, New sore throat, New nausea, New diarrhea, New chills, New myalgias (muscle aches), New headache(Symptoms havebeen present for approximately one week.) Do you have any urgent symptoms?: None- Patient meets criteria for testing.(Doesn't feel as though she is going to collapse but does change position slowly or she feels a bit lightheaded. Eating well and maintianing hydration.) PLAN Endpoint recommendation: Screening positive, testing indicated, advised to be swabbed for COVID-19, sent to [place] located [address] . Take frontage [...] and water aren't available, use a hand perinatal coordinator that contains at least 60% alcohol. Avoid [...] and new symptoms develop please contact your care provider to determine if re-testing is necessary. Educational Resource: https://www.cdc.gov/coronavirus/2019-ncov/prevent-gettin g-sick/index.html RECOMMENDATIONS TESTING CRITERIA IS MET: Stay home [...] provider if any new or worsening symptoms. If your test is negative and new symptoms develop please contact your care provider to determine if re-testing is necessary. Education Resources: https://www.cdc.gov/coronavirus/2019-ncov/i d-bqy-gtz-sick/expvt-xrga-qkxi.html Education: patient/caregiver Patient/caregiver able to teach back Patient agreeable to plan of care: Yes The following references were used: [facility] novel coronavirus (COVID- 19) resources Nursing judgement documented in this encounter Plan of Treatment Upcoming Encounters Date Type Specialty Care Team Description 08/30/2022 Clinical Communication Admitting/Central Scheduling 09/02/2022 Comprehensive Visit Endocrinology Ricardo Winkler, SILVIO, C.N.P., D.N.P. [address] [place] [address] documented as of this encounter Visit Diagnoses Not on filedocumented in this encounter Additional Health Concerns Assessment Noted Time PHQ-9 Depression Total Score: 13 12/04/2017 10:[address] documented as of this encounter Care Teams Electron Microprobe Operator Relationship Specialty Start Date End Date Yarelis Reyes M.D. PCP - General 05/08/17 01/03/21 [address] [place] [address] documented as of this encounter
--- OUTSIDE RECORDS SUMMARY | 2022-08-16 21:27 | XMS_ITS | Encounter Summary ---
:1985 Author Organization [facility] Address [address] [place] [address] Care Team Providers Name Role Phone Florin Woods M.D. Primary Care Provider Reason for Visit Reason Comments Breathing Problem Encounter Details Date Type Department Care Team Description 08/12/2022 Nurse Triage Department of Family Ethel Manzano Brea thing Problem [facility], [facility], in [place], [place] [address] [place], [place] [phone] Social History Tobacco Use Types Packs/Day [...] or relatives? How often do you attend jainism or Never 2021 nondenominational services? Do you belong to any clubs or No 01/25/2022 organizations such as jainism groups, unions, fraternal or athletic groups, or [...] place to sleep or slept in a [place] [facility] [place] (including now)? Education Answer Date Recorded What is the highest level of school you have GED or equivale nt 05/25/2019 completed or the highest degree you have received? Sex Assigned at Date Recorded Female 06/02/2018 2:38 PM CDT documented as of this encounter Miscellaneous Notes Telephone Encounter - Ethel Manzano M.SCarrington., R.N. - 08/12/2022 9:50 PM CDT Chief Complaint / Reason for Call Patient is a 36 y.o. female calling regarding Breathing Problem. Assessment Concern: In ED today for bronchitis diagnosis. Also states she recently received the Hepatitis B Vaccine and wondering if her symptoms are related to the vaccine or her bronchitis. States that her symptoms are the same as she was evaluated earlier today, not new or worsening. States that she has a difficult time taking a deep breathe, feels SOB at rest, Weak, tingly. RN asked if her symptoms are the same or different then when she was in ED. She said the same, and has not taken any of her prescribedsteroid medication yet. RN communicated that since she was evaluated at [facility], she should call themregarding specifics on treatments and medication questions, however encouraged her to return to ED if any of her symptoms change or worsen. Present for: unknown Home cares tried: monitoring Calling to request: advice The recommended disposition is Home Care (overriding Go to ED Now). Reason for Disposition [1] MODERATE difficulty breathing (e.g., speaks in phrases, SOB even at rest, pulse 100-120) AND [2] NEW-onset or WORSE than normal Protocols used: Breathing [id number] documented in this encounter Plan of Treatment Upcoming Encounters Date Type Specialty Care Team Description 08/30/2022 Clinical Communication Admitting/Central Scheduling 09/02/2022 Comprehensive Visit Endocrinology Ricardo Winkler, SILVIO, C.N.P., D.N.P. [address] [place] [address] documented as of this encounter Visit Diagnoses Not on filedocumented in this encounter Additional Health Concerns Assessment Noted Time PHQ-9 Depression Total Score: 19 12/31/2021 8:33 AM CS T documented as of this encounter Care Teams [employer] Scout Relationship Specialty Start Date End Date Florin Woods M.D. PCP - General 01/04/[address] [place] [phone] documented as of this encounter
--- OUTSIDE RECORDS SUMMARY | 2022-08-16 21:27 | XMS_ITS | Encounter Summary ---
:[address] [facility] Address [address] [place] [id number] Care Team Providers Name Role Phone Florin Woods M.D. Primary Care Provider Reason for Visit Reason Comments Shortness of Breath Dizziness Encounter Details Date Type Department Care Team Description 04/14/2022 Nurse Triage Department of Family Cathy Kaur Shor tness of Breath; [facility], [facility], in [place], [place] [address] [place] [address] Social History Tobacco Use Types Packs/Day [...] or relatives? How often do you attend mormonism or Never 2021 buddhist services? Do you belong to any clubs or No 01/25/2022 organizations such as mormonism groups, unions, fraternal or athletic groups, or [...] this encounter Miscellaneous Notes Telephone Encounter - Cathy Kaur, RAmarisN. - 04/14/2022 5:53 PM CDT Chief Complaint / Reason for Call Patient is a 36 y.o. female calling regarding Shortness of Breath and Dizziness. Assessment Concern: Patient called in with concerns about having some new shortness of breath at times, sinus pressure, dizziness, and red skin. Patient has been Covid positive for 7 days and was doing well untilshe developed these symptoms today. She will try her nebulizer and some Pedialyte popsicles to help.She has been taking care of her family and hasn't rested or taken care of herself lately. She says she can take a deep breath and she just feels run down. She also just lost her taste and smell today.She doesn't have a fever. Present for: 1 day Home cares tried: Kori Calling to request: advice The recommended disposition is See a health care provider within 24 hours. Reason for Disposition ??? [1] MODERATE dizziness (e.g., interferes with normal activities) AND [2] has NOT been evaluated by physician for this (Exception: dizziness caused by heat exposure, sudden standing, or poor fluid intake) Protocols used: DIZZINESS - [id number] Care Advice Patient/Caregiver understands and will follow care advice?: Yes, able to teach back DRINK FLUIDS: * Drink several glasses of fruit juice, other clear fluids or water. * This will improve hydration and blood glucose. * If the weather is hot or you have a fever, make sure the fluids are cold. LIE DOWN AND REST: * Lie down with feet elevated for 1 hour. * This will improve circulation and increase blood flow to the brain. CALL BACK IF: * Passes out (faints) * You become worse. documented in this encounter Plan of Treatment Upcoming Encounters Date Type Specialty Care Team Description 08/30/2022 Clinical Communication Admitting/Central Scheduling 09/02/2022 Comprehensive Visit Endocrinology Ricardo Winkler, SILVIO, C.N.P., D.N.P. [address] [place] [address] documented as of this encounter Visit Diagnoses Not on filedocumented in this encounter Additional Health Concerns Infection Onset Date Last Indicated Resolved Time COVID19 04/09/2022 04/09/2022 04/29/2022 5:15 AM CDT Assessment Noted Time PHQ-9 Depression Total Score: 19 12/31/2021 8:33 AM CS T documented as of this encounter Care Teams Associate Manager Relationship Specialty Start Date End Date Florin Woods M.D. PCP - General 01/04/[address] [place] [phone] documented as of this encounter
--- OUTSIDE RECORDS SUMMARY | 2022-08-16 21:27 | XMS_ITS | Encounter Summary ---
:1985 Author Organization [facility] Address [address] [place] [address] Care Team Providers Name Role Phone Florin Woods M.D. Primary Care Provider Reason for Visit Reason Comments Chest Wall Pain Cough Medical Information Encounter Details Date Type Department Care Team Description 04/11/2021 Nurse Triage Department of [facility] [place], Chest W all Pain; Medicine, [place] Erin Lopez, R Mita Cough; Medical Clinic, [address] Information [place], [place] [address] [facility] [address] [place], [place] [phone] [address] (Work) [phone] Social History Tobacco Use Types Packs/Day Years [...] do you attend faith or Never 2021 pentecostal services? Do you belong to any clubs [...] this encounter Miscellaneous Notes Telephone Encounter - Erin Tavares R.N. - 04/11/2021 11:52 AM CDT Chief Complaint / Reason for Call Patient is a 35 y.o. female calling regarding Chest Wall Pain, Cough, and Medical Information. Assessment Concern: Was diagnosed with pneumonia on 04/09 due to right sided chest wall pain and was started onZithromax and Ceftin. She notes a productive cough and now the pain has migrated to her left. Her pain is controlled with the percocet. She is wondering if she needs to be seen again now that the pain is on her left side as well. She denies breathing concerns. Present for: Left sided pain started today Home cares tried: Matthew Gloria Calling to request: Advice The recommended disposition is Call PCP When Office is Open. Care Advice Patient/Caregiver understands and will follow care advice?: Yes, able to teach back CALL PCP WHEN OFFICE IS OPEN: * You need to discuss this with your doctor (or LIQUOR MAKER/PA) within the next few days. * Call the office when it is open. CALL BACK IF: * You have more questions. She would like a message sent to her PCP regarding her concerns. Caller/Patient was warm transferred to the clinic for further assistance. Reason for Disposition ??? [1] Caller requesting NON-URGENT health information AND [2] PCP's office is the best resource Protocols used: INFORMATION ONLY [id number] documented in this encounter Plan of Treatment Upcoming Encounters Date Type Specialty Care Team Description 08/30/2022 Clinical Communication Admitting/Central Scheduling 09/02/2022 Comprehensive Visit Endocrinology Ricardo Winkler APRN, C.N.P., D.N.P. [address] [place] [address] documented as of this encounter Visit Diagnoses Not on filedocumented in this encounter Additional Health Concerns Assessment Noted Time PHQ-9 Depression Total Score: 13 12/04/2017 10:[address] documented as of this encounter Care Teams Circular Saw Edge Fuser Relationship Specialty Start Date End Date Florin Woods M.D. PCP - General 01/04/[address] [place] [phone] documented as of this encounter
--- OUTSIDE RECORDS SUMMARY | 2022-08-16 21:27 | XMS_ITS | Encounter Summary ---
:1985 Author Organization [facility] Address [address] [place] [address] Care Team Providers Name Role Phone Yarelis Reyes M.D. Primary Care Provider [phone] Encounter Details Date Type Department Care Team Description 02/16/2020 Nurse Triage Department of [facility] Dawn Regalado R.N. Medicine, [facility], in [place], [place] [address] [place] [address] Social History Tobacco Use Types Packs/Day Years [...] do you attend congregational or Never 2021 christianity services? Do you belong to any clubs [...] place to sleep or slept in a [facility] (including now)? Education Answer Date Recorded What is the highest level of school you have GED or equivale nt 05/25/2019 completed or the highest degree you have received? Sex Assigned at Date Recorded Female 06/02/2018 2:38 PM CDT documented as of this encounter Miscellaneous Notes Telephone Encounter - Dawn Regalado R.N. - 02/16/2020 2:27 PM CDT 1. Has the patient had close contact with a person with a LABORATORY CONFIRMED case of COVID-19? No a. If no to #1, proceed to #3. b. If yes to #1, proceed to #2. 2. Is this close contact a household contact? a. If no to #2, proceed to #3. b. If yes to #2, proceed to emergency symptoms assessment and positive screen workflow for patient'sregion. Emergency Symptoms Assessment: Are you having trouble breathing or is your breathing worsening (*Do they feel in distress with their breathing?) Yes or No Currently feeling as if you're going to collapse every time you stand or sit up? Yes or No *If yes to emergent symptoms, have patient present to ED. Mask and room PRATIK. No need to call ahead. 3. In the last 48 hours, has the patient experienced a fever (100.5 or greater, or subjective) OR new symptoms (cough or shortness of breath, respiratory distress, or chills, or myalgias)(Symptoms may have started at an earlier date but must be present in the past 48 hours.)? No Date of Onset: a. If no to #3, consider alternative diagnosis. We are not currently testing or isolating asymptomatic patients. dt b. If yes to #3, proceed to #4. 4. Does the patient fall into any of these categories? Yes or No *Air travel/cruise/domestic travel in the past 14 days, immune compromise, age 65 or great, healthcare worker, congestive or congenital heart disease, custodial resident, end stage renal or liver disease, women, chronic pulmonary disease. a. If no to #4, then: Patient does not meet criteria for COVID testing at this time. Patient should be evaluated for acute symptoms and triaged appropriately. If a face to face visit is not needed, instruct patient to contact their employee/occupational health for work restrictions. Patient should stay home until: You have had no fever for at least 72 hours (three full days withoutfever without the use of fever reducing medicine, such as Tylenol/ibuprofen) AND other symptoms haveimproved (e.g. when your cough and shortness of breath has improved) AND at least 7 days have passedsince your symptoms first appeared. b. If yes to #4, then proceed to emergency symptoms assessment and positive screen workflow for patient's region. Emergency Symptoms Assessment: Are you having trouble breathing or is your breathing worsening (*Do they feel in distress with their breathing?) Yes or No Currently feeling as if you're going to collapse every time you stand or sit up? Yes or No *If yes to emergent symptoms, have patient present to ED. Mask and room PRATIK. No need to call ahead. documented in this encounter Plan of Treatment Upcoming Encounters Date Type Specialty Care Team Description 08/30/2022 Clinical Communication Admitting/Central Scheduling 09/02/2022 Comprehensive Visit Endocrinology Ricardo Winkler, SILVIO, C.N.P., D.N.P. [address] [place] [address] documented as of this encounter Visit Diagnoses Not on filedocumented in this encounter Additional Health Concerns Assessment Noted Time PHQ-9 Depression Total Score: 13 12/04/2017 10:[address] documented as of this encounter Care Teams Data Communications Analyst Relationship Specialty Start Date End Date Yraelis Reyes M.D. PCP - General 05/08/17 01/03/21 [address] [place] [phone] documented as of this encounter
--- OUTSIDE RECORDS SUMMARY | 2022-08-16 21:27 | XMS_ITS | Encounter Summary ---
:1985 Author Organization [facility] Address [address] [place] [address] Care Team Providers Name Role Phone Florin Woods M.D. Primary Care Provider Reason for Visit Reason Comments Chest Wall Pain Encounter Details Date Type Department Care Team Description 04/10/2021 Nurse Triage Department of Christelle Tapia Chest Wall [facility], [facility], in [place], [address] [place], [place] [address] [place] [address] [place] [address] [phone] Social History Tobacco Use Types Packs/Day Years [...] do you attend rastafari or Never 2021 religion services? Do you belong to any clubs [...] this encounter Miscellaneous Notes Telephone Encounter - Christelle Frazier R.N. - 04/10/2021 2:37 AM CDT Chief Complaint / Reason for Call Patient is a 35 y.o. female calling regarding Chest Wall Pain. Assessment Concern: Patient was seen yesterday for chest and back pain and prescribed antibiotics for possible pneumonia. Patient states that she has taken percocet and ibuprofen and not gotten any relief in the pain. Her current pain level is a 7/10. No new worsening of respiratory symptoms. Calling to request: What she can do about the pain The recommended disposition is Go to ED Now (or PCP Triage). Care Advice Patient/Caregiver understands and will follow care advice?: Yes, able to teach back GO TO ED NOW (OR PCP TRIAGE): * IF NO PCP (PRIMARY CARE PROVIDER) SECOND-LEVEL TRIAGE: You need to be seen within the next hour. Go to the ED. Leave as soon as you can. CALL EMS IF: * Severe difficulty breathing occurs * Passes out or becomes too weak to stand * You become worse. Reason for Disposition ??? Taking a deep breath makes pain worse Protocols used: CHEST [id number] documented in this encounter Plan of Treatment Upcoming Encounters Date Type Specialty Care Team Description 08/30/2022 Clinical Communication Admitting/Central Scheduling 09/02/2022 Comprehensive Visit Endocrinology Ricardo Winkler, SILVIO, C.N.P., D.N.P. [address] [place] [address] documented as of this encounter Visit Diagnoses Not on filedocumented in this encounter Additional Health Concerns Assessment Noted Time PHQ-9 Depression Total Score: 13 12/04/2017 10:[address] documented as of this encounter Care Teams Cupola Patcher Helper Relationship Specialty Start Date End Date Florin Woods M.D. PCP - General 01/04/[address] [place] [phone] documented as of this encounter
--- OUTSIDE RECORDS SUMMARY | 2022-08-16 21:27 | XMS_ITS | Encounter Summary ---
:1985 Author Organization [facility] Address [address] [place] [address] Care Team Providers Name Role Phone Florin Woods M.D. Primary Care Provider Reason for Visit Reason Comments Headache Encounter Details Date Type Department Care Team Description 01/24/2022 Nurse Triage Department of [facility] Ernestina ayala, Headache Medicine, [facility], [facility] [address] [place] [address] [address] [place] [address] Social History Tobacco Use Types Packs/Day [...] do you attend congregational or Never 2021 buddhism services? Do you belong to any clubs [...] place to sleep or slept in a assisted (including now)? Education Answer Date Recorded What is the highest level of school you have GED or equivale nt 05/25/2019 completed or the highest degree you have received? Sex Assigned at Date Recorded Female 06/02/2018 2:38 PM CDT documented as of this encounter Miscellaneous Notes Telephone Encounter - Ernestina Randolph R.N. - 01/24/2022 8:10 AM OUTER DIAMETER TECHNICIAN Chief Complaint / Reason for Call Patient is a 36 y.o. female calling regarding Headache. Assessment Concern: Back of neck started to get sore four days ago, is tender to the touch. Was touching yesterday and noticed that she has inch wide bump on back of neck on upper left side that she thinks may estevan lymph node, is tender and feels like a bruise. Has also noticed swollen lymph nodes under left andright sides of her jaw. She states she has a cold sore and does typically get a cold sore once or twice a year with one swollen lymph node under jaw but never like this. Whole body is hurting, especially her left side from neck into shoulder blade down to bottom of her diaphragm. Rates pain right now 4/10. Has also had a dull headache constantly for 4-5 days. Gets chronic headaches, but they will typically go away with aleve and caffeine and this one will not go away, feels like a tension headache to her. Cheeks were pinker than usual yesterday, but no fever. Feels a little foggy at times but denies any dizziness. Very fatigued. Denies any new cold like symptoms. Did at home Covid test that was negative. Present for: 4-5 days Home cares tried: tamika Sheikh Calling to request: Advice on where should be seen The recommended disposition is See a health care provider within 24 hours. Patient was warm transferred to [facility] at the clinic for further assistance. Reason for Disposition ? ? [1] Single large node AND [2] size > 1 inch (2.5 cm) AND [3] no fever ? ? [1] MILD-MODERATE headache AND [2] present > 72 hours Protocols used: LYMPH NODES - TAMEGOZ-AXSTE-TT, [id number]-XB Care Advice Patient/Caregiver understands and will follow care advice?: Yes, able to teach back CALL BACK IF: * You become worse. CALL BACK IF: * Severe headache persists over 2 hours after pain medicine * Stiff neck occurs (i.e., can't touch chin to chest) * You become worse. COVID-19 Nurse Line Screening ASSESSMENT Initial Screening Pathway Select appropriate pathway: : Adult In the last 48 hours, have you had a fever* OR symptoms that are unrelated to a preexisting illness?: New headache Date of symptom onset: 01/20/22 COVID Symptomatic Screening Do you have any of the following urgent symptoms?: No urgent symptoms noted (Continue Screening) Have you received a COVID-19 vaccine in the last 72 hours? : No vaccine received (Continue Screening) Have you had close contact* with a person who has tested positive with COVID-19 in the past 14 days?: No (Continue Screening) Have you tested positive for COVID-19 in the last 45 days?: No. COVID-19 testing is indicated (Continue Screening for Additional Testing) Additional Screening for Influenza, RSV and Strep Select appropriate region: : [place] Do you have any of the following respiratory syntonical virus (RSV) complications? : No complications noted (Continue Screening) Do you have any of the following high risk influenza criteria?: No criteria noted (Continue Screening) Are all of the following Strep criteria met? : No, all criteria are not met. Influenza tesing is indicated. (End Screening) Symptom Onset Date of symptom onset: 01/20/22 Testing Recommendation Endpoint Is testing recommended? : Recommended to test PLAN Endpoint recommendation: Testing indicated, patient declining testing. Did at home test, was negative. Prefers to wait to discuss with provider if needed to do another test R DIAMETER TECHNICIAN documented in this encounter Plan of Treatment Upcoming Encounters Date Type Specialty Care Team Description 08/30/2022 Clinical Communication Admitting/Central Scheduling 09/02/2022 Comprehensive Visit Endocrinology Ricardo Winkler APRN, C.N.P., D.N.P. [address] [place] [address] documented as of this encounter Visit Diagnoses Not on filedocumented in this encounter Additional Health Concerns Assessment Noted Time PHQ-9 Depression Total Score: 19 12/31/2021 8:33 AM CS T documented as of this encounter Care Teams Customer Consultant Relationship Specialty Start Date End Date Florin Woods M.D. PCP - General 01/04/[address] [place] [phone] documented as of this encounter
--- OUTSIDE RECORDS SUMMARY | 2022-08-16 21:28 | XMS_ITS | Encounter Summary ---
:1985 Author Organization [facility] Address [address] [place] [address] Care Team Providers Name Role Phone Yarelis Reyes M.D. Primary Care Provider [phone] Encounter Details Date Type Department Care Team Description 06/18/2019 Orders Only Department of Obstetrics and Jhonny Enriquez M.D. Gynecology in [place], [place] [address] [place] [address] Social History Tobacco Use Types Packs/Day Years Used Date Smoking Tobacco: Former Cigarettes 11/1995 - 2015 Smokeless Tobacco: Former Comments: [...] or relatives? How often do you attend amish or Never 2021 latter-day services? Do you belong to any clubs or No 01/25/2022 organizations such as amish groups, unions, fraternal or athletic groups, or [...] Ricardo Winkler, SILVIO, C.N.P., D.N.P. [address] [place] [address] documented as of this encounter Visit Diagnoses Not on filedocumented in this encounter Additional Health Concerns Assessment Noted Time PHQ-9 Depression Total Score: 13 12/04/2017 10:23 AM [facility] documented as of this encounter Care Teams Supervisor Fine Grading Relationship Specialty Start Date End Date Yarelis Reyes M.D. PCP - General 05/08/17 01/03/21 [address] [place] [address] documented as of this encounter
--- OUTSIDE RECORDS SUMMARY | 2022-08-16 21:28 | XMS_ITS | Encounter Summary ---
:1985 Author Organization [facility] Address [address] [place] [address] Care Team Providers Name Role Phone Yarelis Reyes M.D. Primary Care Provider [phone] Reason for Referral Physical Therapy (Routine) - Closed Specialty Diagnoses / Procedures Referred By Contact Refer red To Contact Physical Therapy Diagnoses Urgency Urinary Pelvic Floor Tension Myalgia Robe Raygoza M.D. [address] [place] [address] Referral ID Status Reason Start Date Expiration Date Visits Requ ested Visits Authorized [id number] Closed Other 07/23/2019 07/22/2020 1 1 Reason for Visit Appointment Request (Routine) - Closed Specialty Diagnoses / Procedures Referred By Contact Refer red To Contact Urogynecology Referral ID Status Reason Start Date Expiration Date Visits Requ ested Visits Authorized [id number] Closed 07/02/2019 07/01/2020 1 1 Encounter Details Date Type Department Care Team Description 07/23/2019 Comprehensive Visit Department of Robe Raygoza y Urinary (Primary Dx); Obstetrics and Efrne Palmer Pelvic Floor Tension Myalgia Gynecology, Division 200 [facility] in [place], [place] [address] 200 [facility] [phone] [place], [place] (Work) [phone] Social History Tobacco Use Types Packs/Day Years [...] or relatives? How often do you attend presybeterian or Never 2021 uatsdin services? Do you belong to any clubs or No 01/25/2022 organizations such as presybeterian groups, unions, fraternal or athletic groups, or [...] place to sleep or slept in a long-term (including now)? Education Answer Date Recorded What is the highest level of school you have GED or equivale nt 05/25/2019 completed or the highest degree you have received? Sex Assigned at Date Recorded Female 06/02/2018 2:38 PM CDT documented as of this encounter Consult Notes Robe Raygoza M.D. - 07/23/2019 1:00 PM CDT REQUESTING PROVIDER No ref. provider found SUBJECTIVE REASON FOR CONSULT Pelvic Organ Prolapse HISTORY OF PRESENT ILLNESS Ms. Ng is a 33 y.o. P5 (vaginal) female presents for further evaluation and management of pelvicorgan prolapse. Prolapse: The patient noted roughly 6 days after her last vaginal delivery (February 28) while wiping that there was more fullness in the tissues present. She has been evaluated several times by her local provider and felt not to have prolapse. However, the patient describes fullness coming anteriorly and posteriorly in the vagina. Tissue bulges to but not at or beyond the introitus. Ultimately, she underwent laparoscopic salpingectomy June 17, 2019. Urinary Symptoms: She notes a longstanding history of urinary urgency. While often have numerous small volume voids throughout the day. At times she needs to void several times per hour period less commonly having urge related leaking. Denies leakage with cough, laugh, sneeze. She will have some postvoid dribbling. No pad use. No history of recurrent urinary tract infections. She does note some positional voiding. Bladder diary shows fluid intake 97.9 oz, 19 voids in 24 hours. Numerous small volume voids with inter void interval ranging from under 1 hour to 1.5 hours. Two leakage episodes on the order of drops 1urge related, 1 non urge related. Bowel Symptoms: Denies ongoing issues with constipation. At times she notes need to digit tape. She will use Dulcolax as needed. She is sexually active, has always noted some discomfort which she describes may be secondary to PCOS. MEDICAL HISTORIES The following portions of the patient's history were reviewed and updated as appropriate: allergies,current medication, family history, medical history, surgical history, social history, problem list. PMH: Fibromyalgia, laparoscopic appendectomy, laparoscopic salpingectomy SH: Stop smoking roughly 2 years ago Review of Systems: REVIEW OF SYSTEMS OBJECTIVE PHYSICAL EXAM Physical Exam Genitourinary: Normal external genitalia. Cough stress test negative. Cervix exam normal. Anterior wall: stage 1. Uterus/apex: stage 1. Posterior wall: stage 1. Pain with palpitation of pelvic floor muscles. Pain is in left obturator, left levator and right levator. No pain in right obturator. Pt rates 2-3/10. Kegel strength is 1/5. Exam performed in the presence of Angelito Patterson RN. LABORATORY I reviewed the patients outside records (summarized in HPI), labs, urodynamic testing, and discussedthem with the patient. Uroflow from today showed voided volume 425, PVR 100 measured by catheter, thompson variant flow curve. Bladder was stable during filling, minimal cough related leakage at capacity. Lab Results Component Value Date HGB 10.7 (L) 02/03/2019 Lab Results Component Value Date PLT 292 02/03/2019 Lab Results Component Value Date CREATININE 0.58 (L) 12/25/2018 ASSESSMENT / PLAN 1. Pelvic floor tension myalgia 2. Mild pelvic organ prolapse 3. Urinary urgency, frequency I met with the patient to discuss her pelvic floor symptoms. We discussed these in relation to her history and the findings on exam. We reviewed pertinent pelvic floor anatomy and how it may be contributing to her condition. We reviewed that on exam she has some pelvic floor muscle tenderness, and howthis can impact bladder, bowel, and sexual function. She has some mild anterior and posterior prolapse, and we discussed this. Reviewed that many of the symptoms she is describing may not be directly related to prolapse such as the urinary hesitancy, issues with bowel evacuation. In terms of pelvic floor muscles we discussed management options including use of Sitz bath, heatingpads, a short course of NSAIDs, yoga and stretching exercises, pelvic floor physical therapy, and E-stim therapy. She understands the role for multimodal therapy. In addition to conservative measures, she was interested in pelvic floor physical therapy, and we will provide referrals for these. All of her questions were answered. She was given my contact information if any questions arise. Plan: 1. Sitz bath, heating pad, a short course of NSAIDs, yoga and stretching exercises, pelvic floor physical therapy for pelvic floor tension myalgia Signed by: Robe Raygoza M.D. 07/23/2019 1:51 PM I personally spent over half of a total 40 minutes face to face with the patient in counseling and discussion and/or coordination of care as described above. 025 modifier documented in this encounter Plan of Treatment Upcoming Encounters Date Type Specialty Care Team Description 08/30/2022 Clinical Communication Admitting/Central Scheduling 09/02/2022 Comprehensive Visit Endocrinology Ricardo Winkler APRN, C.N.P., D.N.P. [address] [place] [phone] documented as of this encounter Visit Diagnoses Diagnosis Urgency Urinary - Primary Pelvic Floor Tension Myalgia documented in this encounter Additional Health Concerns Assessment Noted Time PHQ-9 Depression Total Score: 13 12/04/2017 10:23 AM C documented as of this encounter Care Teams Panel Builder Relationship Specialty Start Date End Date Yarelis Reyes M.D. PCP - General 05/08/17 01/03/21 [address] [place] [address] documented as of this encounter
--- OUTSIDE RECORDS SUMMARY | 2022-08-16 21:28 | XMS_ITS | Encounter Summary ---
:1985 Author Organization [facility] Address [address] [place] [address] Care Team Providers Name Role Phone Yarelis Reyes M.D. Primary Care Provider Reason for Visit Reason Comments Pre-op Visit rectocele and cystocele? Appointment Request (Routine) - Closed Specialty Diagnoses / Procedures Referred By Contact Refer red To Contact Obstetrics and Gynecology Referral ID Status Reason Start Date Expiration Date Visits Requ ested Visits Authorized [id number] Closed 05/25/2019 05/24/2020 1 1 Encounter Details Date Type Department Care Team Description 05/26/2019 Office Visit Department of Jhonny Enriquez Sterilizatio n Elective (Primary Dx); Obstetrics and M.D. Gynecological Examination Normal Gynecology in [place], [place] 200 [place] [address] Social History Tobacco Use Types [...] do you attend episcopalian or Never 2021 pentecostal services? Do you [...] Sign Reading Time Taken Comments Blood Pressure 100/62 05/26/2019 2:15 PM CDT Pulse 72 05/26/2019 2:15 PM CDT Temperature - - Respiratory Rate 16 05/26/2019 2:15 PM CDT Oxygen Saturation - - Inhaled Oxygen Concentration - - Weight 72.2 kg (159 lb 2.8 oz) 05/26/2019 2:15 PM CDT Height 153 cm (5' 0.24) 05/26/2019 2:15 PM CDT Body Mass Index 30.84 05/26/2019 2:15 PM CDT documented in this encounter Progress Notes Jhonny Enriquez M.D. - 05/26/2019 2:15 PM CDT AUTO TRANSMISSION TECHNICIAN FOLLOW UP CHIEF COMPLAINT / REASON FOR VISIT 1 Elective sterilization 2 Concern for uterine prolapse HISTORY OF PRESENT ILLNESS Keily Ng is a 33 y.o. female, , with No LMP recorded. who presents today for elective sterilization and concerned about possible uterine prolapse. The patient had a vaginal delivery on02/28/2019. She is nursing exclusively and has not had a menses since delivery. She requests elective sterilization. She does not want to have any further children. She is in a stable monogamous relationship and has had 5 healthy children. She has prefer reviewed and signed the [place] sterilizationconsent form on 04/07/2019. She would like to proceed for with elective sterilization procedure in 3weeks. The patient's second concern is for possible uterine prolapse. She was jumping on the trampoline with her children and when she landed on her bottom she felt like something inside was coming out. She felt something rub on her underwear. She denies any current pelvic pressure symptoms. She denies difficulty urinating, dysuria, hematuria, or flank pain. She denies urine incontinence. She denies difficulty with bowel movements, constipation, or diarrhea. She denies rectal splinting. SUBJECTIVE Allergies Allergen Reactions ??? Bupropion Hcl Anxiety flush, anger flush, anger Current Outpatient Medications: ??? breast pump (PUMP IN STYLE ADVANCED) device, Electric breast pump for home use. Gestation age atdelivery: 37 weeks. Reason for need: nursing. Length of need: 12 months, Disp: , Rfl: ??? vitamin-iron fumarate-FA 28 mg iron- 800 mcg per tablet, Take 1 tablet by mouth., Disp:, Rfl: ??? raNITIdine (ZANTAC) 150 mg tablet, Take 150 mg by mouth daily., Disp: , Rfl: ??? sucralfate (CARAFATE) 1 gram tablet, Take 1 g by mouth every 6 (six) hours., Disp: , Rfl: ??? acetaminophen (TYLENOL) 500 mg capsule, Take by mouth every 6 (six) hours as needed for pain., Disp: , Rfl: ??? bisacodyl (DULCOLAX) 5 mg EC tablet, Take 10 mg by mouth daily as needed for constipation., Disp: , Rfl: ??? ferrous sulfate 325 mg (65 mg iron) tablet, Take 1 tablet (65 mg of iron total) by mouth daily. (Patient not taking: Reported on 05/26/2019 ), Disp: 60 tablet, Rfl: 3 ??? ibuprofen (ADVIL,MOTRIN) 600 mg tablet, TAKE ONE TABLET BY MOUTH EVERY 6 HOURS NEEDED FOR PAIN MAX OF 3200MG / 24HRS, Disp: , Rfl: 0 ??? norelgestromin-ethinyl estradiol (XULANE) 150-35 mcg/24 hr patch, Apply 1 patch each week for 3 weeks, then remove for 1 week. (Patient not taking: Reported on 05/26/2019 ), Disp: 3 patch, Rfl: 11 SYSTEMS REVIEW: GENERAL: No fevers, chills, fatigue, unintentional weight loss or weight gain. HEENT: No changes in vision or hearing, no sore throat or nasal congestion. CARDIOVASCULAR: No chest pain, irregular heartbeat or racing heart. RESPIRATORY: No shortness of breath, cough or wheeze. GASTROINTESTINAL: No nausea, vomiting, diarrhea, constipation or abdominal pain. GENITOURINARY: No pain or burning with urination, no heavy periods, painful periods, abnormal vaginal discharge, leaking urine, leaking stool or gas. SKIN: No rashes or skin lesions. BREASTS: No masses or lumps, no discharge from the nipples. NEUROLOGIC: No difficulty with memory, numbness, tingling, falls. PSYCHIATRIC: No anxiety, depression, or difficulty sleeping. ENDOCRINE: No heat intolerance, cold intolerance, excessive thirst or hair loss. Past Medical History: Diagnosis Date ??? Abnormal Pap Smear Personal History ??? Abuse Tobacco Smoking 06/27/2010 quit 2013 ??? Anemia ??? Anemia Iron Deficiency 12/03/2018 ??? Bipolar I Depressed (HCC) 10/22/2011 ??? Cervical Dysplasia Personal History 04/02/2010 ??? Chronic Tension Type Headache Not Intractable 09/05/2014 ??? Depression Major Recurrent (HCC) 10/22/2011 Depressive [...] 03/08/2019 uterine prolapse ??? Sterilization Elective 04/07/2019 ??? Subacute And Chronic Vaginitis 04/10/2018 recurrent bacterial vaginitis Past Surgical History: Procedure Laterality Date ??? APPENDECTOMY 12/25/2012 ??? LAPAROSCOPIC APPENDECTOMY 12/25/2012 ??? LEEP PROCEDURE - LOOP ELECTRO EXCISION PROCEDURE 2006 ??? OTHER SURGICAL HISTORY 02/22/2007 Leep procedure OB History Para Term AB Living 7 5 4 1 2 5 SAB TAB Ectopic Molar Multiple Live Births 2 0 0 0 0 5 # Outcome Date GA Lbr Saroj/2nd Weight Sex Delivery Anes PTL Lv 7 Term 02/28/19 37w5d 3.487 kg F Vag-Spont CHERYL Comments: precipitous delivery Complications: Precipitous Labor <3 Hours 6 Term 02/17/15 39w2d 3.43 kg M Vag-Spont CHERYL Comments: A1GDM, Precipitous delivery 5 11/06/10 36w1d 2.353 kg M Vag-Spont CHERYL 4 Term 08/16/08 38w0d 2.75 kg F Vag-Spont CHERYL Comments: Labor 3 SAB 2005 9w0d SAB SA 2 SAB 2004 11w0d SAB SA 1 Term 02/10/02 38w0d 2.722 kg F Vag-Spont CHERYL Social History Socioeconomic History ??? Marital status: Single Spouse name: Ovi Alexander ??? Number of children: 5 ??? Years of education: Not on file ??? Highest education level: GED or equivalent Occupational History ??? Not on file Social Needs ??? Financial resource strain: Not hard at all ??? Food insecurity: Worry: Never true Inability: Never true ??? Transportation needs: Medical: No Non-medical: No Tobacco Use ??? Smoking status: Former Smoker Types: Cigarettes Start date: 11/24/1995 Last attempt to quit: 2016 Years since quittin.6 ??? Smokeless tobacco: Former User ??? Tobacco comment: Smoked throughout my childhood. Quit and restarted a couple times Substance and Sexual Activity ??? Alcohol use: Yes Types: 1 Glasses of wine per week Frequency: Monthly or less Drinks per session: 1 or 2 Binge frequency: Never Comment: I dont drink often. Maybe twice a month ??? Drug use: Yes Types: Marijuana ??? Sexual activity: Yes Partners: Male Lifestyle ??? Physical activity: Days per week: 2 days Minutes per session: 10 min ??? Stress: Only a little Relationships ??? Social connections: Talks on phone: More than three times a week Gets together: More than three times a week Attends pentecostal service: Never Active member of club or organization: No Attends meetings of clubs or organizations: Never Relationship status: Living with partner ??? Intimate partner violence: Fear of current or ex partner: No Emotionally abused: No Physically abused: No Forced sexual activity: No Other Topics Concern ??? Not on file Social History Narrative ??? Not on file OBJECTIVE BP 100/62 Pulse 72 Resp 16 Ht 153 cm Wt 72.2 kg BMI 30.84 kg/m?? General: Well-developed, well-nourished female in no apparent distress. Neurological: Alert and oriented x3. Abdomen: Soft, nontender, nondistended, positive bowel sounds. No organomegaly. No rebound, no guarding. Pelvic exam: Normal external female genitalia. normal Bartholin, Urethral and Vandergrift's glands. Normalvaginal mucosa without lesions. Well estrogenized. No cystocele or rectocele. Good lateral vaginal support. Normal multiparous cervix without lesions. No cervical motion tenderness. Uterus is normal size, shape, consistency, anteflexed, mobile, nontender. Uterine descent is minimal. No adnexal masses or tenderness bilaterally. Rectal exam: No external hemorrhoids noted. No rectovaginal nodularity noted. Examination confirms the vaginal exam. Extremities: No clubbing cyanosis or edema. Nontender bilaterally. Spine: No costovertebral angle tenderness bilaterally. It Telecom Technician for pelvic exam or qualifying procedure: Fanny Gracia L.P.N. DIAGNOSTICS 04/07/2019 Pap smear: Negative for intraepithelial lesion or malignancy IMPRESSION / PLAN Keily Ng is a 33 y.o. female who presents for elective sterilization and concern about possible uterine prolapse. 1 Request elective sterilization - The patient requests elective sterilization. She does not want to have any further children. - I reviewed the risk, benefits, alternatives, and indications of elective sterilization with the patient. I reviewed the sterilization options available to the patient including vasectomy, laparoscopic bilateral tubal fulguration, and laparoscopic bilateral tubal salpingectomy. The hysteroscopic bilateral tubal occlusion with Essure device is no longer available. - I reviewed the permanent nature of sterilization. I reviewed the sterilization failure rate of up to 1%. I reviewed the risk for ectopic after sterilization. I reviewed the increased risk for post-sterilization depression and regret, especially for women under the age of 30. - The [place] sterilization consent form was signed on 04/07/2019. - The patient desires to proceed with laparoscopic bilateral salpingectomy. She requests surgery on 06/17/2019. - I contacted [facility] scheduled the patient for laparoscopic bilateral salpingectomy on 06/17/2019. - I reviewed the risk, benefits, alternatives, and indications of laparoscopic bilateral salpingectomy surgery with the patient. I reviewed the risk of bleeding, need for blood transfusion, injury to nearby organs with need for repair including but not limited to bowel, bladder, blood vessels, fallopian tubes, ovaries, nerves, ureters, and uterus. I discussed permanent nature of sterilization with the risk of sterilization failure less than 1%. I discussed the risk for ectopic . I discussedincreased risk for post sterilization depression. I discussed the anesthesia risk, deep venous thrombosis risk, unexpected findings, diagnosis of cancer with need for further therapy, failure to relieve symptoms, recurrence of symptoms and rarely . She is agreeable to a blood transfusion if medically indicated and she is aware of the risks of a blood transfusion including HIV, Hepatitis B and Hepatitis C. I explained that pathology may be found after analysis of the tissue removed at the time of surgery that may require further treatment such as dysplastic or cancerous cells. The patient verbalizes understanding and desired to proceed. She has no further questions. Surgical consent form is signed. 2 Normal gynecological examination without uterine prolapse, cystocele or rectocele - Reassurance is given to the patient. She has minimal uterine descent which is appropriate for patient with 5 vaginal deliveries. She has no uterine prolapse. There is no cystocele or rectocele. Thereis could lateral vaginal support. - I recommend the patient see her primary provider for medical preop clearance and history and physical examination prior to surgery. - I recommended the patient be NPO for at least 8 hours prior to surgery. - I recommended the patient meet with anesthesia prior to surgery. - I recommend the patient stop Aspirin and Ibuprofen for at least 7 days prior to surgery. - I reviewed routine Hospital preop instructions with the patient including contact information. - I recommend the patient remain abstinent until after surgical procedure. - We will check a urine test on admission to the hospital. - All of the patient's questions were answered. - Problem list reviewed and updated. - Follow up in 3 weeks. - 25 minute visit with greater than 50% spent in counseling. Jhonny Enriquez MD Acoustical Tile Patternmaker - Obstetrics and Gynecology [facility] documented in this encounter Plan of Treatment Upcoming Encounters Date Type Specialty Care Team Description 08/30/2022 Clinical Communication Admitting/Central Scheduling 09/02/2022 Comprehensive Visit Endocrinology Ricardo Winkelr APRN, C.N.P., D.N.P. [address] [place] [phone] documented as of this encounter Visit Diagnoses Diagnosis Sterilization Elective - Primary Gynecological Examination Normal documented in this encounter Additional Health Concerns Assessment Noted Time PHQ-9 Depression Total Score: 13 12/04/2017 10:[address] documented as of this encounter Care Teams Ultrasonic Welding Machine Operator Relationship Specialty Start Date End Date Yarelis Reyes M.D. PCP - General 05/08/17 01/03/21 [address] [place] [address] documented as of this encounter
--- OUTSIDE RECORDS SUMMARY | 2022-08-16 21:28 | XMS_ITS | Encounter Summary ---
:1985 Author Organization [facility] Address [address] [place] [id number] Care Team Providers Name Role Phone Yarelis Reyes M.D. Primary Care Provider Reason for Visit Reason Comments Care Appointment Request (Routine) - Closed Specialty Diagnoses / Procedures Referred By Contact Refer red To Contact Obstetrics and Gynecology Referral ID Status Reason Start Date Expiration Date Visits Requ ested Visits Authorized [id number] Closed 03/08/2019 03/07/2020 1 1 Encounter Details Date Type Department Care Team Description 03/08/2019 Office Visit Department of Jhonny Enriquez, Sandra freitas (Primary Dx); Obstetrics and M.D. Care Postpart um (HCC) Gynecology in [place], [place] [address] [place] [address] Social History Tobacco Use Types [...] or relatives? How often do you attend sikh or Never 2021 nondenominational services? Do you belong to any clubs or No 01/25/2022 organizations such as sikh groups, unions, fraternal or athletic groups, or [...] place to sleep or slept in a fci (including now)? Sex Assigned at Date Recorded Female 06/02/2018 2:38 PM CDT documented as of this encounter Last Filed Vital Signs Vital Sign Reading Time Taken Comments Blood Pressure 96/64 03/08/2019 10:31 AM CDT Pulse - - Temperature - - Respiratory Rate - - Oxygen Saturation - - Inhaled Oxygen Concentration - - Weight 68.7 kg (151 lb 7.3 oz) 03/08/2019 10:31 AM CDT Height - - Body Mass Index 29.35 02/24/2019 2:05 PM CDT documented in this encounter Progress Notes Jhonny Enriquez M.D. - 03/08/2019 10:30 AM CDT REASON FOR VISIT / CHEIF COMPLAINT Vaginal bulge. HISTORY OF PRESENT ILLNESS Keily Ng is a 33 y.o. female who is 8 days status post normal spontaneous vaginal delivery on 02/28/2019. She presents for an acute office visit today complaining of feeling a vaginalbulge for the last 3 days. She notices a vaginal bulge when she wipes which is very distressing for her. She is afraid that she has a uterine prolapse. When she touches it, it returns up into the vagina. She denies difficulty urinating, dysuria, hematuria, or flank pain. No change in bowel habits. Shecontinues to have light lochia. She has no mood concerns at this time. She denies abdominal or pelvic discomfort. Her infant is doing well. She is breast feeding her without difficulty. ALLERGIES Allergies Allergen Reactions ??? Bupropion Hcl Anxiety flush, anger flush, anger MEDICATIONS Current Outpatient Prescriptions: ??? acetaminophen (TYLENOL) 500 mg capsule, Take by mouth every 6 (six) hours as needed for pain., Disp: , Rfl: ??? albuterol (ACCUNEB) 2.5 mg /3 mL nebulizer solution, Inhale 2.5 mg., Disp: , Rfl: ??? bisacodyl (DULCOLAX) 5 mg EC tablet, Take 10 mg by mouth daily as needed for constipation., Disp: , Rfl: ??? breast pump (PUMP IN STYLE ADVANCED) device, Electric breast pump for home use. Gestation age atdelivery: 37 weeks. Reason for need: nursing. Length of need: 12 months, Disp: , Rfl: ??? ferrous sulfate 325 mg (65 mg iron) tablet, Take 1 tablet (65 mg of iron total) by mouth daily.,Disp: 60 tablet, Rfl: 3 ??? ibuprofen (ADVIL,MOTRIN) 600 mg tablet, TAKE ONE TABLET BY MOUTH EVERY 6 HOURS NEEDED FOR PAIN MAX OF 3200MG / 24HRS, Disp: , Rfl: 0 ??? vitamin-iron fumarate-FA 28 mg iron- 800 mcg per tablet, Take 1 tablet by mouth., Disp:, Rfl: ??? amoxicillin (AMOXIL) 500 mg capsule, Take 1 capsule (500 mg total) by mouth every 12 (twelve) hours for 10 days. (Patient not taking: Reported on 03/08/2019 ), Disp: 20 capsule, Rfl: 0 ??? fluconazole (DIFLUCAN) 150 mg tablet, TAKE ONE TABLET BY MOUTH ONCE FOR ONE DOSE. REPEAT IN 3 DAYS IF SYMPTOMS PERSIST., Disp: , Rfl: 0 ??? lidocaine (LIDODERM) 5 %, Place 1 patch on the skin daily. Apply to painful area 12 hours per day, remove for 12 hours. (Patient not taking: Reported on 02/23/2019 ), Disp: 30 patch, Rfl: 0 REVIEW OF SYSTEMS As per HPI otherwise negative. PAST MEDICAL HISTORY Past Medical History: Diagnosis Date [...] ??? Prolapse Uterine 03/08/2019 uterine prolapse ??? Subacute And Chronic Vaginitis 04/10/2018 recurrent bacterial vaginitis PAST SURGICAL HISTORY Past Surgical History: Procedure Laterality Date ??? APPENDECTOMY 12/25/2012 ??? LAPAROSCOPIC APPENDECTOMY 12/25/2012 ??? LEEP PROCEDURE - LOOP ELECTRO EXCISION PROCEDURE 2006 ??? OTHER SURGICAL HISTORY 02/22/2007 Leep procedure OBSTETRIC HISTORY OB History Para Term AB Living 7 5 4 1 2 5 SAB TAB Ectopic Molar Multiple Live Births 2 0 0 0 0 5 # Outcome Date GA Lbr Saroj/2nd Weight Sex Delivery Anes PTL Lv 7 Term 02/28/19 37w5d 3.487 kg F Vag-Spont CHERYL Complications: Precipitous Labor <3 Hours Comments: precipitous delivery 6 Term 02/17/15 39w2d 3.43 kg M Vag-Spont CHERYL Comments: A1GDM, Precipitous delivery 5 11/06/10 36w1d 2.353 kg M Vag-Spont CHERYL 4 Term 08/16/08 38w0d 2.75 kg F Vag-Spont CHERYL Comments: Labor 3 SAB 2005 9w0d SAB SA 2 SAB 2004 11w0d SAB SA 1 Term 02/10/02 38w0d 2.722 kg F Vag-Spont CHERYL SOCIAL HISTORY Social History Social History ??? Marital status: Single Spouse name: Ovi Alexander ??? Number of children: 5 ??? Years of education: N/A Occupational History ??? Not on file. Social History Main Topics ??? Smoking status: Former Smoker Types: Cigarettes Start date: 11/24/1995 Quit date: 2015 ??? Smokeless tobacco: Former User Comment: Smoked throughout my childhood. Quit and restarted a couple times ??? Alcohol use Yes 1 Glasses of wine per week Comment: I dont drink often. Maybe twice a month ??? Drug use: Yes Types: Marijuana ??? Sexual activity: Yes Partners: Male Other Topics Concern ??? Not on file Social History Narrative ??? No narrative on file FAMILY HISTORY Family History Problem [...] fully put under ??? Suicide Attempts Sister OBJECTIVE BP 96/64 (BP Location: Right arm, Patient Position: Sitting, Cuff Size: Regular) Wt 68.7 kg LMP 06/09/2018 ? Yes BMI 29.35 kg/m?? General: Well-developed, well-nourished female in no apparent distress. Neurological: Alert and oriented x3. Skin: No rashes or lesions Head: Normocephalic, atraumatic ENT: Oropharynx clear, Trachea midline, no cervical adenopathy, Vision and hearing grossly intact Breast: Deferred. Lungs: Clear to auscultation bilaterally with good inspiratory effort. No wheezing rhonchi or rales noted. Breathing nonlabored. Heart: Regular rate and rhythm without murmur. No JVD. No peripheral vascular disease. Abdomen: Soft, nontender, nondistended, positive bowel sounds. No organomegaly. No rebound, no guarding. Pelvic exam: Normal external female genitalia without lesions or abnormalities. Normal pubic hair distribution. Urethral meatus normal in appearance and without masses. Normal Bartholin, Urethral and [place]'s glands. Vaginal mucosa is pink and moist with light lochia. Vaginal laceration is well healed.Well estrogenized vaginal mucosa. Normal multiparous cervix without lesions or abnormalities. No cervical motion tenderness to palpation. The bladder and urethra are nontender to palpation. Uterus is 18-20 week size, midposition, mobile, and non nontender. Uterine descent is noted to be to the spines.No adnexal masses or tenderness bilaterally. Rectal exam: No external hemorrhoids noted. No rectovaginal nodularity noted. Examination confirms the vaginal exam. Extremities: No clubbing cyanosis or edema. Nontender bilaterally. Spine: No costovertebral angle tenderness bilaterally. Dining Service Inspector for pelvic exam or qualifying procedure: Yulisa Wahl L.P.N. ASSESSMENT / PLAN Keily Ng is a 33 y.o. female who presents for acute office visit complaining of vaginal bulge. 1 Uterine prolapse - I discussed uterine prolapse with the patient. She has mild uterine prolapse on day 8 after recent vaginal delivery. - Reassurance is given to the patient. - I discussed management options with the patient and recommend conservative observation for the next 6 weeks to allow her body to return to her normal state after her recent delivery. - I recommend the patient avoid heavy lifting or squatting type activities for the next 6-8 weeks. - I also recommend the patient refrain from intercourse for the next 6-8 weeks. - If the patient's symptoms worsen then I recommend she follow up for re-evaluation. - The patient agrees with this course of action. 2 Normal early exam after vaginal delivery on 02/28/2019 (PPD #8) -The patient is making excellent progress. She is voiding, ambulating, tolerating a regular diet and having bowel movements without difficulty. - Routine precautions, recommendations and restrictions are reviewed with the patient. - Routine depression precautions are reviewed with the patient. - Bleeding precautions are reviewed the patient. - I recommend that the patient refrain from intercourse for 6-8 weeks after delivery. I recommend the patient be on reliable contraception before resuming intercourse. 2 Contraception counseling - The patient is undecided on contraception. 3 Nursing - Nursing is encouraged. - I recommend that the patient follow up in 4-5 weeks for formal visit. - All of the patient's questions were answered. - I will be happy to see the patient on an as needed basis. - Problem list reviewed and updated. - Follow up in 5 weeks. - 30 minute visit with greater than 50% spent in counseling. Jhonny Enriquez MD Spray I Painter - Obstetrics and Gynecology [facility] documented in this encounter Plan of Treatment Upcoming Encounters Date Type Specialty Care Team Description 08/30/2022 Clinical Communication Admitting/Central Scheduling 09/02/2022 Comprehensive Visit Endocrinology Ricardo Winkler APRN, C.N.P., D.N.P. [address] [place] [address] documented as of this encounter Visit Diagnoses Diagnosis Prolapse Uterine - Primary Care (HCC) documented in this encounter Additional Health Concerns Assessment Noted Time PHQ-9 Depression Total Score: 13 12/04/2017 10:[address] documented as of this encounter Care Teams Gse Mechanic Relationship Specialty Start Date End Date Yarelis Reyes M.D. PCP - General 05/08/17 01/03/21 [address] [place] [phone] documented as of this encounter
--- OUTSIDE RECORDS SUMMARY | 2022-08-16 21:28 | XMS_ITS | Encounter Summary ---
:1985 Author Organization [facility] Address [address] [place] [address] Care Team Providers Name Role Phone Yarelis Reyes M.D. Primary Care Provider [phone] Encounter Details Date Type Department Care Team Description 07/02/2019 Clinical Communication Department of Urology Tesfaye Raygoza in [place] [address] [place] [phone] Social History Tobacco Use Types Packs/Day Years [...] or relatives? How often do you attend baptist or Never 2021 yarsani services? Do you belong to any clubs or No 01/25/2022 organizations such as baptist groups, unions, fraternal or athletic groups, or [...] or slept in a fci (including now)? Education Answer Date Recorded What [...] Ricardo Winkler, SILVIO, C.N.P., D.N.P. [address] [place] [address] documented as of this encounter Visit Diagnoses Diagnosis Cystocele - Primary documented in this encounter Additional Health Concerns Assessment Noted Time PHQ-9 Depression Total Score: 13 12/04/2017 10:[address] documented as of this encounter Care Teams Chief Compressor Station Engineer Relationship Specialty Start Date End Date Yarelis Reyes M.D. PCP - General 05/08/17 01/03/[address] [place] [address] documented as of this encounter
--- OUTSIDE RECORDS SUMMARY | 2022-08-16 21:28 | XMS_ITS | Encounter Summary ---
:1985 Author Organization [facility] Address [address] [place] [address] Care Team Providers Name Role Phone Yarelis Reyes M.D. Primary Care Provider [phone] Encounter Details Date Type Department Care Team Description 05/21/2019 Nurse Triage Department of [facility] Sariah Castaneda, Medicine, [facility], R.N. in [place], [place] [address] [place] [address] [place] [address] [place] [address] [phone] Social History Tobacco Use Types Packs/Day Years [...] or relatives? How often do you attend buddhism or Never 2021 quaker services? Do you belong to any clubs or No 01/25/2022 organizations such as buddhism groups, unions, [employer] or athletic groups, or school groups? How [...] or slept in a prison (including now)? Sex Assigned at Date Recorded Female 06/02/2018 2:38 PM CDT documented as of this encounter Plan of Treatment Upcoming Encounters Date Type Specialty Care Team Description 08/30/2022 Clinical Communication Admitting/Central Scheduling 09/02/2022 Comprehensive Visit Endocrinology Ricardo Winkler, SILVIO, C.N.P., D.N.P. [address] [place] [address] documented as of this encounter Visit Diagnoses Not on filedocumented in this encounter Additional Health Concerns Assessment Noted Time PHQ-9 Depression Total Score: 13 12/04/2017 10:23 AM [facility] documented as of this encounter Care Teams Elevator Service Technician Relationship Specialty Start Date End Date Yarelis Reyes M.D. PCP - General 05/08/17 01/03/21 [address] [place] [phone] documented as of this encounter
--- OUTSIDE RECORDS SUMMARY | 2022-08-16 21:28 | XMS_ITS | Encounter Summary ---
:1985 Author Organization [facility] Address [address] [place] [address] Care Team Providers Name Role Phone Yarelis Reyes M.D. Primary Care Provider Reason for Referral Outpatient (Routine) - Closed Specialty Diagnoses / Procedures Referred By Contact Refer red To Contact Obstetrics and Diagnoses Relaxation Pelvic Floor Debra Ferguson Gynecology Yarelis lam M.D. A, M.D. [address] [place], [place] [phone] Referral ID Status Reason Start Date Expiration Date Visits V isits Requested Authorized [id number] Closed Second 06/25/2019 06/24/2020 1 1 Opinion Encounter Details Date Type Department Care Team Description 06/25/2019 Orders Only Department of [facility] Zuleima campbell Pelvic Floor Medicine, Yarelis Bravo, (Primary Dx) Clinic, in [place] [address] [place] [phone] Social History Tobacco Use Types Packs/Day Years [...] do you attend congregational or Never 2021 roman catholic services? Do you belong to any [...] Ricardo Winkler APRN, C.N.P., D.N.P. [address] [place] [address] documented as of this encounter Visit Diagnoses Diagnosis Relaxation Pelvic Floor - Primary documented in this encounter Additional Health Concerns Assessment Noted Time PHQ-9 Depression Total Score: 13 12/04/2017 10:[address] documented as of this encounter Care Teams Cinema Or Theatre Manager Relationship Specialty Start Date End Date Yarelis Reyes M.D. PCP - General 05/08/17 01/03/21 [address] [place] [phone] documented as of this encounter
--- OUTSIDE RECORDS SUMMARY | 2022-08-16 21:28 | XMS_ITS | Encounter Summary ---
:1985 Author Organization [facility] Address [address] [place] [address] Care Team Providers Name Role Phone Yarelis Reyes M.D. Primary Care Provider Reason for Visit Reason Comments Care Outpatient (Routine) - Closed Specialty Diagnoses / Procedures Referred By Contact Refer red To Contact Obstetrics and Jhonny Enriquez M.D. [facility] [address] [place] [address] Referral ID Status Reason Start Date Expiration Date Visits Requ ested Visits Authorized [id number] Closed 03/01/2019 02/29/2020 1 1 Encounter Details Date Type Department Care Team Description 04/07/2019 Visit Department of Jhonny Enriquez, King Pos tpartum (HCC) (Primary Dx); Obstetrics and M.D. Sterilization Elective Gynecology in [place], [place] [address] [place] [phone] Social History Tobacco Use Types Packs/Day Years [...] do you attend judaism or Never 2021 jain services? Do you belong to any clubs or No 01/25/2022 organizations such as judaism groups, unions, fra[employer]sem Spa or athletic groups, or school groups? How [...] or slept in a alf (including now)? Sex Assigned at Date Recorded Female 06/02/2018 2:38 PM CDT documented as of this encounter Last Filed Vital Signs Vital Sign Reading Time Taken Comments Blood Pressure 90/60 04/07/2019 1:08 PM CDT Pulse 66 04/07/2019 1:08 PM CDT Temperature 36.7 ??C (98.1 ??F) 04/07/2019 1:08 PM CDT Respiratory Rate 14 04/07/2019 1:08 PM CDT Oxygen Saturation - - Inhaled Oxygen Concentration - - Weight 70 kg (154 lb 3.4 oz) 04/07/2019 1:08 PM CDT Height 153 cm (5' 0.24) 04/07/2019 1:08 PM CDT Body Mass Index 29.88 04/07/2019 1:08 PM CDT documented in this encounter Progress Notes Jhonny Enriquez M.D. - 04/07/2019 1:15 PM CDT VISIT REASON FOR VISIT / CHEIF COMPLAINT exam. Request elective sterilization. HISTORY OF PRESENT ILLNESS Keily Ng is a 33 y.o. female who is 6 weeks status post normal spontaneous vaginaldelivery on 02/28/2019. She presents for visit today. She is voiding, ambulating, tolerating a regular diet and having bowel movements without difficulty. Her lochia has resolved. She has nothad a menses since delivery. She has not had intercourse since delivery. She has no mood concerns atthis time. She has no post delivery pain at this time. Her uterine prolapse symptoms have resolved. Her infant is doing well. She is breast feeding her infant without difficulty. She desires elective sterilization for contraception. She does not want to have any further children. She Is in a stable monogamous relationship and has 5 healthy children. SUBJECTIVE Allergies Allergen Reactions ??? Bupropion Hcl Anxiety flush, anger flush, anger Current Outpatient Prescriptions: ??? acetaminophen (TYLENOL) 500 [...] for 3 weeks, then remove for 1 week., Disp: 3 patch, Rfl: 11 ??? vitamin-iron fumarate-FA 28 mg iron- 800 mcg per tablet, Take 1 tablet by mouth., Disp:, Rfl: REVIEW OF SYSTEMS General: No fever, chills, fatigue, unintentional weight loss, or weight gain HEENT: No sore throat, nasal congestion, changes in vision or changes in hearing Cardiovascular: No chest pain, irregular heartbeat or racing heart Respiratory: No shortness of breath, cough, or wheezing Gastrointestinal: No nausea, vomiting, diarrhea, constipation or abdominal pain Genitourinary: No leaking urine, pain with urination, burning with urination, irregular vaginal bleeding, heavy periods, painful periods, abnormal vaginal discharge or leaking gas or stool Skin: No rashes or skin lesions Breasts: No masses or lumps, positive for discharge from the nipples Neuro: No difficulty with memory, numbness, tingling, or falls Psych: No anxiety, depression or difficulty sleeping Endocrine: No excessive thirst, hair loss, intolerance of heat or cold Past Medical History: Diagnosis Date ??? Abnormal Pap Smear Personal History ??? Abuse Tobacco Smoking 06/27/2010 quit 2013 ??? Anemia ??? Anemia Iron Deficiency 12/03/2018 ??? Bipolar I Depressed ([facility]) 10/22/2011 ??? Cervical Dysplasia Personal History 04/02/2010 [...] F Vag-Spont CHERYL Comments: Labor 3 SAB 2006 9w0d SAB SA 2 SAB 2005 11w0d SAB SA 1 Term 02/10/02 38w0d 2.722 kg F Vag-Spont CHERYL Social History Social History ??? Marital status: [...] History Narrative ??? No narrative on file Family History Problem Relation Age of Onset [...] under ??? Suicide Attempts Sister OBJECTIVE BP 90/60 Pulse 66 Temp 36.7 ??C Resp 14 Ht 153 cm Wt 70 kg LMP 06/09/2018 BMI 29.88 kg/m?? General: Well-developed, well-nourished female in no apparent distress. Neurological: Alert and oriented x3. Skin: No rashes or lesions Head: Normocephalic, atraumatic ENT: Oropharynx clear, Trachea midline, no cervical adenopathy, Vision and hearing grossly intact Breast: Breasts are bilaterally symmetrical. No masses, tenderness, retractions, skin changes, erythema, discharge or adenopathy bilaterally. Lungs: Clear to auscultation bilaterally with good [...] and without masses. Normal Bartholin, Urethral and Roman Forest's glands. Vaginal mucosa is pink and moist with a small amount of physiologic discharge. Well estrogenized vaginal mucosa. Normal multiparous cervix without lesions or abnormalities. No cervical motion tenderness to palpation. The bladder and urethra are nontender to palpation. Uterus is normal size, shape, consistency midposition, mobile, and non nontender. Uterine descent is noted to be minimal. No adnexal masses or tenderness bilaterally. Rectal exam: No external hemorrhoids noted. No rectovaginal nodularity noted. Examination confirms the vaginal exam. Extremities: No clubbing cyanosis or edema. Nontender bilaterally. Spine: No costovertebral angle tenderness bilaterally. Plate Driller for pelvic exam or qualifying procedure: Yulisa Wahl L.P.N. DIAGNOSTICS 04/07/2019 Pap smear: Pending ASSESSMENT / PLAN Keily Ng is a 33 y.o. female who is 6 weeks status post normal spontaneous vaginaldelivery on 02/28/2019. 1 Normal exam after vaginal delivery -The patient is making excellent progress. She is voiding, ambulating, tolerating a regular diet and having bowel movements without difficulty. - Routine precautions, recommendations and restrictions are reviewed with the patient. - Routine depression precautions are reviewed with the patient. - Bleeding precautions are reviewed the patient. - The patient may resume all normal activities without restrictions. - I recommend that the patient refrain from intercourse for 6-8 weeks after delivery. I recommend the patient be on reliable contraception before resuming intercourse. - Pap smear performed today per protocol. I will contact patient with the results were Pap smear. 2 Contraception counseling - I discussed contraception options available to the patient including oral contraceptive pills bothcontinuous and cyclic, Ortho Evra patch, NuvaRing, Depo- Provera injections, Nexplanon, Mirena IUD, ParaGard IUD, and condoms. I reviewed the risks, benefits, alternatives, indications and side effects of each of these contraception options with the patient. - She desires Ortho Evra for contraception until she can have sterilization procedure this summer. 3 Nursing - Breast feeding is encouraged. - The patient was previously given a breast pump prescription. - Contact information for the acura sales consultant at the [facility] is given to the patient. 4 Request elective sterilization - I reviewed the risk, benefits, alternatives, [...] for women under the age of 30. [address] [facility] sterilization consent form with the patient. She has no further questions. - The [place] sterilization consent form is signed on 04/07/2019. - I gave the patient literature on sterilization. - The patient is interested in laparoscopic tubal ligation for sterilization. - The patient will contact me next week with her management decision on sterilization type and sterilization date. She was wait at least 30 days before having sterilization procedure performed. - I recommend the patient remain abstinent until after sterilization procedure. - I recommend that the patient follow up with her primary provider for adult preventive services andannual examination as needed. - All of the patient's questions were answered. - I will be happy to see the patient on an as needed basis. - Problem list reviewed and updated. - Follow up in 1 weeks. Jhonny Enriquez MD Translator Deaf - Obstetrics and Gynecology [facility] documented in this encounter Plan of Treatment Upcoming Encounters Date Type Specialty Care Team Description 08/30/2022 Clinical Communication Admitting/Central Scheduling 09/02/2022 Comprehensive Visit Endocrinology Ricardo Winkler, SILVIO, C.N.P., D.N.P. [address] [place] [address] documented as of this encounter Procedures Procedure Name Priority Date/Time Associated Diagnosis Comme nts THINPREP SCREEN HPV Routine 04/07/2019 1:37 PM Care Results for this REFLEX CDT (HCC) procedure are i n the results section. documented in this encounter Results ThinPrep Screen HPV Reflex (04/07/2019 1:37 PM CDT) Component Value Ref Test Analysis Performed Pathologis t Range Method Time At Signature 04/12/2019 [facility] 1:31 PM HEALTH CDT SYSTEM- [place] [facility] Report GERTRUDE Méndez(ASCP) 04/12/2019 [facility] electronically I verify that I have examined all relevant slides/ma terials 1:31 PM HEALTH signed by for the specimen(s) and rendered or confirmed the diagnosi s. [facility] Gross Description Received specimen 04/12/2019 [facility] in a ThinPrep 1:31 PM HEALTH vial. CDT SYSTEM- [email or web address] Pap Test Source Cervical/Endocervi 04/12/2019 [facility] faviola 1:31 PM HEALTH CDT [facility] Clinical History screening 04/12/2019 [facility] 1:31 PM HEALTH CDT SYSTEM- [place] [facility] Menstrual recent 04/12/2019 [facility] Status(LMP, PM, 1:31 PM HEALTH ) CDT SYSTEM- [email or web address] Hormone none 04/12/2019 [facility] Therapy/Contracep 1:31 PM HEALTH tives CDT [facility]- [place] [facility] Interpretation Cervical/Endocervical ??(ThinPrep): 04/12/2019 [facility] Satisfactory for Evaluation 1:31 PM HE ALTH Negative for Intraepithelial Lesion or Malignancy CDT [facility]- [place] [facility] Specimen Anatomical Collection Method Collection Time Receive d Time (Source) Location / / Volume Laterality Varies 04/07/2019 1:37 PM 9 9:32 (Cervix/Endocerv CDT AM CDT ix) Narrative This result has an attachment that is no t available. Jhonny Enriquez M.D. LAB PAP PATHDX ORDERABLES Performing Organization Address City/State/ZIP Code Phon e Number [facility] [address] [place] [address] CYTOLOGY documented in this encounter Visit Diagnoses Diagnosis Care (HCC) - Primary Sterilization Elective documented in this encounter Additional Health Concerns Assessment Noted Time PHQ-9 Depression Total Score: 13 12/04/2017 10:[address] documented as of this encounter Care Teams Laundry Laborer Relationship Specialty Start Date End Date Yarelis Reyes M.D. PCP - General 05/08/17 01/03/21 [address] [place] [phone] documented as of this encounter
--- OUTSIDE RECORDS SUMMARY | 2022-08-16 21:28 | XMS_ITS | Encounter Summary ---
:1985 Author Organization [facility] Address [address] [place] [address] Care Team Providers Name Role Phone Yarelis Reyes M.D. Primary Care Provider [phone] Reason for Visit Reason Comments Post-op Visit Outpatient (Routine) - Closed Specialty Diagnoses / Procedures Referred By Contact Refer red To Contact Obstetrics and Diagnoses Follow Up Examination Postoperative Visit Jhonny Enriquez M.D. [facility] Gynecology [address] [place] [address] Referral ID Status Reason Start Date Expiration Date Visits Requ ested Visits Authorized [id number] Closed 05/26/2019 05/25/2020 1 1 Encounter Details Date Type Department Care Team Description 06/23/2019 Office Visit Department of Jhonny Enriquez, Follow Up Ex amination Obstetrics and Efren Postoperative Visit Gynecology in [place], [place] [address] [place] [phone] Social History Tobacco Use Types Packs/Day Years [...] or relatives? How often do you attend jain or Never 2021 mosque services? Do you belong to any clubs or No 01/25/2022 organizations such as jain groups, unions, fraAmerican [employer] International or athletic groups, or school groups? How [...] Sign Reading Time Taken Comments Blood Pressure 96/68 06/23/2019 11:41 AM CDT Pulse 68 06/23/2019 11:41 AM CDT Temperature - - Respiratory Rate 14 06/23/2019 11:41 AM CDT Oxygen Saturation - - Inhaled Oxygen Concentration - - Weight 71.2 kg (157 lb 1.2 oz) 06/23/2019 11:41 AM CDT Height 153 cm (5' 0.24) 06/23/2019 11:41 AM CDT Body Mass Index 30.44 06/23/2019 11:41 AM CDT documented in this encounter Progress Notes Jhonny Enriquez M.D. - 06/23/2019 11:45 AM CDT POST OPERATIVE MERCHANDISE DELIVERER VISIT REASON FOR VISIT / CHEIF COMPLAINT Postoperative exam. HISTORY OF PRESENT ILLNESS Keily Ng is a 33 y.o. female who is status post laparoscopic bilateral salpingectomy performed on 06/17/2019. She presents for postoperative visit today. She was seen in urgent care clinic yesterday for being lightheaded and she was found to be dehydrated with normal hemoglobin and hematocrit. She has increased her fluid intake and her symptoms have resolved. She is voiding, ambulating, tolerating a regular diet and having bowel movements without difficulty. She denies vaginal bleeding or discharge. She denies dyspnea, chest pain, calf pain, fever or chills, headaches or vision changes. She has no mood concerns at this time. Her pain and cramping have resolved. She has no incision concerns at this time. SUBJECTIVE Allergies Allergen Reactions ??? Bupropion Hcl Anxiety flush, anger flush, anger Current Outpatient Medications: ??? acetaminophen [...] need: 12 months, Disp: , Rfl: ??? ibuprofen (ADVIL,MOTRIN) 600 mg tablet, TAKE ONE TABLET BY MOUTH EVERY 6 HOURS NEEDED FOR PAIN MAX OF 3200MG / 24HRS, Disp: , Rfl: 0 ??? vitamin-iron fumarate-FA 28 mg iron- 800 mcg per tablet, Take 1 tablet by mouth., Disp:, Rfl: ??? sucralfate (CARAFATE) 1 gram tablet, Take 1 g by mouth every 6 (six) hours., Disp: , Rfl: REVIEW OF SYSTEMS As per the HPI, otherwise negative. Past Medical History: Diagnosis Date ??? Abnormal [...] ??? OTHER SURGICAL HISTORY 02/22/2007 Leep procedure ??? VAGINAL DELIVERY 2001 2007 2009 2014 2018 OB History Para Term AB Living 7 [...] kg F Vag-Spont CHERYL Comments: Labor 3 2006 9w0d SAB SA 2 SAB 2005 [...] Lifestyle ??? Physical activity: Days per week: 4 days Minutes per session: 20 min ??? Stress: To some extent Relationships ??? Social connections: Talks on phone: More than three times a week Gets together: More than three times a week Attends mosque service: Never Active member of club or organization: No Attends meetings of clubs or organizations: Never Relationship status: Living with partner ??? Intimate partner violence: Fear of current or ex partner: No Emotionally abused: No Physically abused: No Forced sexual activity: No Other Topics Concern ??? Not on file Social History Narrative ??? Not on file OBJECTIVE BP 96/68 Pulse 68 Resp 14 Ht 153 cm Wt 71.2 kg BMI 30.44 kg/m?? General: Well-developed, well-nourished female in no acute distress. Neurological: Alert and oriented x3. Lungs: Clear to auscultation bilaterally with good inspiratory effort. No wheezing rhonchi or rales noted. Breathing nonlabored. Heart: Regular rate and rhythm without murmur. No JVD. No peripheral vascular disease. Abdomen: Soft, nontender, nondistended, positive bowel sounds. No organomegaly. No rebound, no guarding. No hernia. Incision is clean, dry and intact x 3. No erythema or induration. Steri strips are inplace. Pelvic exam: Deferred. Extremities: No clubbing, cyanosis or edema. Nontender bilaterally. DIAGNOSTICS 04/07/2019 Pap smear: Negative for intraepithelial lesion or malignancy 06/17/2019 Pathology: benign tubes bilaterally 06/22/2019 BMP: Normal 06/22/2019 WBC 12.2, hemoglobin 13.4, hematocrit 40.6, platelets 394 06/22/2019 Urinalysis: Negative ASSESSMENT / PLAN Keily Ng is a 33 y.o. female who is status post laparoscopic bilateral salpingectomy performed on 06/17/2019. 1 Normal postoperative exam - The patient is making excellent postoperative progress. She is voiding, ambulating, tolerating a regular diet and having bowel movements without difficulty. - The patient was having problems with the hydration but her symptoms are not resolved with increased fluid intake. - Routine postoperative precautions, recommendations and restrictions are reviewed with the patient. - The pathology results are reviewed the patient. - The patient may resume all normal baseline physical activities without restrictions. - I recommend that the patient refrain from intercourse for 4 weeks after the surgery. - Bleeding precautions are reviewed the patient. - I recommend that the patient follow up with her primary provider for adult preventive services andannual examination as needed. - All of the patient's questions were answered. - I will be happy to see the patient on an as needed basis. - Problem list reviewed and updated. - Follow up annually and as needed. Jhonny Enriquez MD Photographic Restorer - Obstetrics and Gynecology [facility] documented in this encounter Plan of Treatment Upcoming Encounters Date Type Specialty Care Team Description 08/30/2022 Clinical Communication Admitting/Central Scheduling 09/02/2022 Comprehensive Visit Endocrinology Ricardo Winkler, SILVIO, C.N.P., D.N.P. [address] [place] [address] documented as of this encounter Visit Diagnoses Diagnosis Follow Up Examination Postoperative Visi t documented in this encounter Additional Health Concerns Assessment Noted Time PHQ-9 Depression Total Score: 13 12/04/2017 10:[address] documented as of this encounter Care Teams Cupola Repairer Relationship Specialty Start Date End Date Yarelis Reyes M.D. PCP - General 05/08/17 01/03/21 [address] [place] [phone] documented as of this encounter
--- OUTSIDE RECORDS SUMMARY | 2022-08-16 21:28 | XMS_ITS | Encounter Summary ---
:1985 Author Organization [facility] Address [address] [place] [address] Care Team Providers Name Role Phone Yarelis Reyes M.D. Primary Care Provider [phone] Encounter Details Date Type Department Care Team Description 12/23/2019 Orders Only Department of Obstetrics and Jhonny Enriquez M.D. Gynecology in [place], [place] [address] [place] [address] Social History Tobacco Use [...] do you attend muslim or Never 2021 yazidi services? Do you belong to any clubs [...] Ricardo Winkler, SILVIO, C.N.P., D.N.P. [address] [place] [address] documented as of this encounter Visit Diagnoses Not on filedocumented in this encounter Additional Health Concerns Assessment Noted Time PHQ-9 Depression Total Score: 13 12/04/2017 10:23 AM [facility] documented as of this encounter Care Teams Parachute Accessories Attacher Relationship Specialty Start Date End Date Yarelis Reyes M.D. PCP - General 05/08/17 01/03/21 [address] [place] [phone] documented as of this encounter
--- OUTSIDE RECORDS SUMMARY | 2022-08-16 21:28 | XMS_ITS | Encounter Summary ---
:1985 Author Organization [facility] Address [address] [place] [address] Care Team Providers Name Role Phone Yarelis Reyes M.D. Primary Care Provider [phone] Encounter Details Date Type Department Care Team Description 07/05/2019 Orders Only Department of Obstetrics Ban Daniel, Cystocele Midline and Gynecology, Division R.N. (Primary Dx) of Urogynecology in [address] [place] [address] [place] [phone] [place] [address] [phone] Social History Tobacco Use Types Packs/Day Years [...] or relatives? How often do you attend uatsdin or Never 2021 gnosticism services? Do you belong to any clubs or No 01/25/2022 organizations such as uatsdin groups, unions, fraternal or athletic groups, or [...] Ricardo Winkler, SILVIO, C.N.P., D.N.P. [address] [place] [address] documented as of this encounter Results GA CYSTOMETROGRAM SIMPLE, GA EDUARDO PST VOID RESID US NON IMG, GA IRRI BLAD SMPL LAVAGE&/INSTILL, GA UROFLOWMETRY CMPLX (07/23/2019 11:15 AM CDT) Narrative Robe Raygoza M.D. - 07/23/2019 11:15 AM CDT Robe Raygoza M.D. ? 07/23/2019 ??2:53 PM OBG Urodynamic Studies Date/Time: 07/23/2019 11:55 AM Performed by: Robe Raygoza M.D. Authorized by: Robe Raygoza M.D. Care team members present 1. Michelle Hogue R.N. PROCEDURE DETAILS: ??Procedures: ??Combined (CMG S + Uro) ??Equipment used: ??Calibrated electron ically ??Cough stress test: negative ?Flow pattern: thompson variant ?Interpretation: normal ?Voided volume (mL): ??425 ??Post-void residual (mL): ??100 ??Postvoid residual measured by: cathet er ?Volume infused (mL): ??400 ??Detrusor activity:: stable during yeimy ling ?Support of significant prolapse:: yes (1 scopette, not large) ?Valsalva-related leakage: absent ?Cough-related leakage: present (dime to nickel size ) ?Volume of stress urinary incontinence : minimal ?Repeat Uroflow: no ?Uroflow: normal ?Cystometry: stress urinary incontinen ce and no urodynamic evidence of detrusor overactivity ?The following procedures were perform ed during this urodynamic study: ?? CMG simple, post-void residual - cathete r, post-void residual - ultrasound, complex uroflow and bladder irrigation installation CONSENT Consent obtained: verbal Consent given by: patient The benefits, risks and alternatives to the procedure and the potential need for sedation or anesthesia as well as the names, roles, and responsibilities of healthcare team memb ers performing significant interventional tasks were discussed with the patient and/or decision maker. UNIVERSAL PROTOCOL All relevant documentation and testing w ere reviewed and available. All required blood products, implants, devic es and or special equipment were made available as applicable. Pre-proced ure verification was conducted and the correct site was marked if required. A fire risk assessment was done as applicable. The procedural time-out w as conducted prior to performing the procedure and confirmed in a procedu ral pause. PRE-PROCEDURE DETAILS: ??Indications: urinary incontinence and prolapse ?Appropriate hand hygiene, gown, cap, mask, protective eyewear, sterile gloves, skin preparation, sterile drape, and strict aseptic technique were utilized as applicable for the procedure .: yes ?Site preparation: ??Povidone-iodine SEDATION / ANESTHESIA Anesthesia method: none POST-PROCEDURE DETAILS ?? Procedure completed successfully. yes ?? Complications: no apparent complications Comments Patient voided 450 ml in bathroom, PVR b y ultrasound was 80 ml. ??Urine was sent for UA and culture. Robe Raygoza M.D. OB GYNE ORDERABLES documented in this encounter Visit Diagnoses Diagnosis Cystocele Midline - Primary Cystocele Midline - Primary documented in this encounter Additional Health Concerns Assessment Noted Time PHQ-9 Depression Total Score: 13 12/04/2017 10:[address] documented as of this encounter Care Teams Behavior Therapist Relationship Specialty Start Date End Date Yarelis Reyes M.D. PCP - General 05/08/17 01/03/21 [address] [place] [address] documented as of this encounter
--- OUTSIDE RECORDS SUMMARY | 2022-08-16 21:28 | XMS_ITS | Encounter Summary ---
:[address] [facility] Address [address] [place] [address] Care Team Providers Name Role Phone Yarelis Reyes M.D. Primary Care Provider Reason for Visit Reason Onset Date Comments esophagitis 05/25/2019 Encounter Details Date Type Department Care Team Description 05/25/2019 Clinical Communication Department of Family Mira Pineda esophagitis Medicine, Yarelis Bravo, Clinic, in [place] [address] [place] [phone] Social History Tobacco Use Types Packs/Day Years [...] or relatives? How often do you attend sikhism or Never 2021 baptism services? Do you belong to any clubs or No 01/25/2022 organizations such as sikhism groups, unions, fraternal or athletic groups, or [...] this encounter Miscellaneous Notes Telephone Encounter - Ana M Santoyo - 05/26/2019 7:40 AM CDT There is nothing earlier than the 8th with any provider Telephone Encounter - Lila Campbell, L.P.N. - 05/25/2019 11:58 AM CDT Can you help with this please Telephone Encounter - Farooq Estrada - 05/25/2019 11:31 AM CDT Reason for Communication: patient called and set up an appt for esophagitis on 05/31 with mira, and would like to know if she can be seen sooner with her, please advise. Current Can Nursing/Provider leave a detailed message: yes Did the patient refuse triage through Nurse line? (for symptom based concerns): Action Needed: Name of Medication (if relevant): documented in this encounter Plan of Treatment Upcoming Encounters Date Type Specialty Care Team Description 08/30/2022 Clinical Communication Admitting/Central Scheduling 09/02/2022 Comprehensive Visit Endocrinology Ricardo Winkler APRN, C.N.P., D.N.P. [address] [place] [address] documented as of this encounter Visit Diagnoses Not on filedocumented in this encounter Additional Health Concerns Assessment Noted Time PHQ-9 Depression Total Score: 13 12/04/2017 10:[address] documented as of this encounter Care Teams Stem Roller Relationship Specialty Start Date End Date Yarelis Reyes M.D. PCP - General 05/08/17 01/03/21 [address] [place] [phone] documented as of this encounter
--- OUTSIDE RECORDS SUMMARY | 2022-08-16 21:28 | XMS_ITS | Encounter Summary ---
:1985 Author Organization [facility] Address [address] [place] [id number] Care Team Providers Name Role Phone Yarelis Reyes M.D. Primary Care Provider [phone] Reason for Visit Reason Onset Date Comments Urogyn intake baseline 07/23/2019 Encounter Details Date Type Department Care Team Description 07/23/2019 Clinical Department of Shayan Hodges Communication Obstetrics and Bria Dockery baseline Gynecology, Division [address] [place] [address] of Urogynecology in [place], [place] [address] [place] [address] [place], [place] (Work) [phone] Social History Tobacco Use Types Packs/Day Years [...] do you attend sikhism or Never 2021 hindu services? Do you belong to any clubs [...] this encounter Miscellaneous Notes Telephone Encounter - Bria Hodges Nahed - 07/23/2019 3:38 PM CDT Urogyn intake baseline completed 07/23/2019 Q1 Please provide the following information: [id number] Q2 Many people leak urine some of the time. We are trying to find out how many people leak urine, what circumstances cause leaking to occur, and how these symptoms bother them. We would be grateful if you would answer the following questions, thinking about how you have been, on average, over the PAST4 WEEKS. Q3 How often do you leak urine? (Choose only one.) About once a day? Q4 We would like to know how much urine you think leaks. How much urine do you usually leak (whetheryou wear protection or not)? (Coose only one.) A small amount (drops or less) Q5 Overall, how much does leaking urine interfere with your daily life? Please rate on a scale of 0 to 10 with ???0?? being not at all and ???10?? being a great deal. (Choose only one.) 2 Q6 The next 6 questions describe times when urine may leak. Please answer all the questions as you have experienced over the PAST FOUR WEEKS. a. Leaks before you can get to the toilet Yes b. Leaks when you cough or sneeze No? c. Leaks when you are physically active/exercising No? d. Leaks when you have finished urinating and are dressed Yes? e. Leaks for no obvious reason No? f. Leaks all the time No? Q7 If you leak because of activities such as coughing, sneezing, and exercising (ie.: marked ???b?? or ???c?? question 4) AND because you cannot make it to the toilet in time (ie.: marked ???a?? question 4), by how much does each type of urinary leakage bother you during your daily life? (Choose only one.) Q8 Ricardo the box that best describes how your urinary tract condition is now. (Choose only one.) Normal Q9 Many people have a sudden, uncomfortable desire or urge to urinate that may or may not cause leakage of urine (a condition called overactive bladder). We are trying to find out how many people have overactive bladder symptoms (regardless of whether the symptoms cause leakage of urine) and how these symptoms bother them. We would be grateful if you could answer the following questions, thinking about how you have been, on average, over the PAST FOUR WEEKS. Q10 How often do you usually urinate during the day? (Choose only one.) About every hour (more than 14 times per day) Q11 How much does frequent urination interfere with your daily life? Please rate on a scale of 0 to 10 with ???0?? being not at all and ???10?? being a great deal. (Choose the one that applies.) 3 Q12 How often do you usually urinate at night (from the time you go to bed until you wake up for theday)? (Choose only one.) 0 to 1 time? Q13 What is the reason you usually urinate? (Choose only one.) Because I have a moderate urge or desire (but can delay urination for more than 10 minutes but less than 60 minutes.)? Q14 Once you get the urge or desire to urinate, how long can you usually postpone it comfortably? (Choose only one.) A few minutes (less than 10 minutes) Q15 How often do you get a sudden, uncomfortable urge or desire to pass urine that makes you want tostop what you are doing and matthews to the bathroom, but you do not leak on the way? (Choose only one.) Several (more than 3) times a day Q16 How often do you get a sudden, uncomfortable urge or desire to pass urine that makes you want tostop what you are doing and matthews to the bathroom, but you do not get there in time (AND you leak or wet pads)? (Choose only one.) At least once a day Q17 How much does a sudden, uncomfortable urge or desire to pass urine (regardless if you leak or donot leak) interfere with your daily life? Please rate on a scale of 0 to 10 with ???0?? being not at all and ???10?? being a great deal. (Choose the one that applies.) 2 Q18 In your opinion, how good is your bladder control? (Choose only one.) Very good Q19 The next nine questions ask about bladder emptying symptoms. During the PAST 4 WEEKS, how bothered were you by ... I feel like I do not completely empty the bladder A little bit I need to spend more time on the toilet to feel that I completely empty the bladder A little bit I need to void multiple times to empty the bladder Quite a bit I have to push on the vagina to empty the bladder Not at all I have difficulty starting a urinary stream Not at all I have a weak urinary stream Somewhat I need to bear down or strain to empty the bladder Not at all I have frequent urinary tract infections (more than 3 per year) Not at all I have to pass a catheter to empty the bladder completely Not at all Q20 How many sanitary pads do you use on average each day? Number of sanitary pads: (Enter 0 for no pads.) Number of sanitary pads: (Enter 0 for no pads.) Q21 How many sanitary pads do you use on average each night? Number of sanitary pads: (Enter 0 for no pads.) Number of sanitary pads: (Enter 0 for no pads.) Q22 What type of sanitary pads do you use? (Choose all that apply.) ? Q23 Why do you use sanitary pads? (Choose all that apply.) Q24 Please answer all of the following questions. These questions will ask you if you have certain bowel, bladder, or pelvic symptoms, and if you do, how much they bother you. Answer these questions bychoosing the appropriate box or boxes. If you are unsure about how to answer a question, give the best answer you can. While answering these questions, please consider your symptoms over the LAST 3 MONTHS. Q25 Do you usually experience pressure in the lower abdomen? Yes Q26 How much does this bother you? Somewhat Q27 Do you usually experience heaviness or dullness in the pelvic area? Yes Q28 How much does this bother you? Somewhat Q29 Do you usually have a sensation of bulging or protrusion from the vaginal area? Yes Q30 How much does this bother you? Moderately Q31 Do you usually have a bulge or something falling out that you can see or feel in the vaginal area? Yes Q32 How much does this bother you? Moderately Q33 Do you usually have to push on the vagina or around the rectum to have or complete a bowel movement? No Q34 How much does this bother you? Q35 FEMALE SEXUAL FUNCTION INDEX The following questions ask about a sensitive topic, your sexual activity and your sexual life with your partner. We have defined ???SEXUAL ACTIVITY?? as activity which may result in sexual stimulation or sexual pleasure. Sexual activity may not always involve a partner. We have defined ???SEXUAL LIFE?? as both physical and sexual activities and the emotional sexualrelationship that you have with your partner. Please answer the questions as honestly and candidly as you can. YOUR ANSWERS WILL BE TREATED WITH COMPLETE CONFIDENTIALITY. YOUR ANSWERS WILL NOT BE LINKED TO YOU IN ANY IDENTIFIABLE WAY. Q36 When was the last time you engaged in sexual activity (such as intercourse, caressing, foreplay,or masturbation)? (Choose only one.) Within the last 4 weeks Q37 Over the last 4 weeks, how often did you take part in sexual activity with penetration (e.g. vaginal penetration with intercourse)? (Choose only one.) Once/twice Q38 Over the last 4 weeks, in general, how much did you enjoy penetration and intercourse? (Choose only one.) Moderately enjoyable Q39 Over the last 4 weeks, how often did you experience pain in your vagina/genital area during or after sexual activity (e.g., penetration, intercourse)? (Choose only one.) Moderately enjoyable Q40 Over the last 4 weeks, in general, how much pain did you experience in your vagina/genital area during or after sexual activity (e.g. penetration, intercourse)? (Choose only one.) Sometimes Q41 Over the last 4 weeks, how often did you notice vaginal wetness/lubrication when you took part in sexual activity? (Choose only one.) Slightly painful Q42 Over the last 4 weeks, in general, how often did you enjoy sexual activity without penetration (e.g. masturbation, oral sex)? (Choose only one.) Sometimes Q43 Over the last 4 weeks, in general, did you feel good about yourself when you were sexually active? (Choose only one.) Slightly Q44 Over the last 4 weeks, how often did you have an orgasm when you took part in sexual activity (may be with or without a partner)? (Choose only one.) Often Q45 The next eleven questions describe barriers that may have kept you from sexual activity. Please select ???Yes?? for those that have been a barrier for you. Partner problems (no partner, partner unable, or partner uninterested) Partner unavailable ( deployment, away on business, etc.) Low desire Pain during or after intercourse with previous attempts Fear of pain during intercourse Vaginal bulge/prolapse Vaginal dryness Urinary incontinence during intercourse Vaginal bleeding or discharge Vagina too short or narrow Other, please specify below Q46 Which one of the above barriers to sexual activity is the SINGLE MOST BOTHERSOME? 07/23/2019 documented in this encounter Plan of Treatment Upcoming Encounters Date Type Specialty Care Team Description 08/30/2022 Clinical Communication Admitting/Central Scheduling 09/02/2022 Comprehensive Visit Endocrinology Ricardo Winkler, SILVIO, C.N.P., D.N.P. [address] [place] [address] documented as of this encounter Visit Diagnoses Not on filedocumented in this encounter Additional Health Concerns Assessment Noted Time PHQ-9 Depression Total Score: 13 12/04/2017 10:[address] documented as of this encounter Care Teams Organizational Effectiveness Director Relationship Specialty Start Date End Date Yarelis Reyes M.D. PCP - General 05/08/17 01/03/21 [address] [place] [phone] documented as of this encounter
--- OUTSIDE RECORDS SUMMARY | 2022-08-16 21:28 | XMS_ITS | Encounter Summary ---
:1985 Author Organization [facility] Address [address] [place] [address] Care Team Providers Name Role Phone Yarelis Reyes M.D. Primary Care Provider Reason for Visit Reason Comments Post Ed Visit Follow-up Seen at [facility] on 05/24/2019 for esophagitis symptoms started 3 days before, is feeling better. Pre-op Exam Pre Op for tubal Ligation wi th Dr. Enriquez on 06/17/2019 at [facility] . Appointment Request (Routine) - Closed Specialty Diagnoses / Procedures Referred By Contact Refer red To Contact Family Medicine Referral ID Status Reason Start Date Expiration Date Visits Requ ested Visits Authorized [id number] Closed 05/25/2019 05/24/2020 1 1 Encounter Details Date Type Department Care Team Description 05/31/2019 Office Visit Department of Family Zuleima Pre operative Exam Medicine, Yarelis Bravo, (Primary Dx) Clinic, in [place] [address] [place] [phone] Social History Tobacco Use Types Packs/Day Years [...] do you attend uatsdin or Never 2021 jainism services? Do you belong to any clubs [...] place to sleep or slept in a residential (including now)? Education Answer Date Recorded What is the highest level of school you have GED or equivale nt 05/25/2019 completed or the highest degree you have received? Sex Assigned at Date Recorded Female 06/02/2018 2:38 PM CDT documented as of this encounter Last Filed Vital Signs Vital Sign Reading Time Taken Comments Blood Pressure 108/60 05/31/2019 2:25 PM CDT Pulse 73 05/31/2019 2:25 PM CDT Temperature 37.2 ??C (99 ??F) 05/31/2019 2:25 PM CDT Respiratory Rate 20 05/31/2019 2:25 PM CDT Oxygen Saturation 98% 05/31/2019 2:25 PM CDT Inhaled Oxygen Concentration - - Weight 72.7 kg (160 lb 4.4 oz) 05/31/2019 2:25 PM CDT Height 153 cm (5' 0.24) 05/31/2019 2:25 PM CDT Body Mass Index 31.06 05/31/2019 2:25 PM CDT documented in this encounter H&P Notes Yarelis Reeys M.D. - 05/31/2019 2:15 PM CDT SUBJECTIVE CHIEF COMPLAINT / REASON FOR VISIT Proposed surgery date: 06/17/2019. Surgeon: Dr. Jhonny Enriquez. Proposed surgery: Tubal ligation. Location: [facility]; [place], [place]. HISTORY OF PRESENT ILLNESS Keily Ng is a 33 y.o. female who presents to the clinic today for a preanesthetic medical evaluation. I am asked to assess whether the patient is an adequate candidate for anesthesia. She denies any cough, cold, sore throat, chest pain, or shortness of breath. The patient was seen by OBGYN to discuss tubal ligation on 05/26/2019. She would like to proceed with this surgery and needs a preoperative assessment. Additionally, the patient was seen in the ER initially on 05/21/2019 for esophagitis. Patient was started on Omeprazole and Carafate for 2 weeks. She then woke up with an exacerbation on 05/24/2019 andreturned to the ER for her symptoms. Keily was then told to take Zantac daily for 2 weeks and continue on the Carafate. Today she reports that she has been feeling better but continues to wake up withback pain. Her throat pain and GERD seems to have improved and she wonders if she injured herself vomiting. There are no further concerns at this time. REVIEW OF SYSTEMS Please see HPI for pertinent positives, otherwise rest of ROS negative. CURRENT MEDICATIONS Current Outpatient Medications Medication Sig Dispense Refill ??? breast pump (PUMP IN STYLE ADVANCED) device Electric breast pump for home use. Gestation age at delivery: 37 weeks. Reason for need: nursing. Length of need: 12 months ??? vitamin-iron fumarate-FA 28 mg iron- 800 mcg per tablet Take 1 tablet by mouth. ??? raNITIdine (ZANTAC) 150 mg tablet Take 150 mg by mouth daily. ??? sucralfate (CARAFATE) 1 gram tablet Take 1 g by mouth every 6 (six) hours. ??? acetaminophen (TYLENOL) 500 mg capsule Take by mouth every 6 (six) hours as needed for pain. ??? bisacodyl (DULCOLAX) 5 mg EC tablet Take 10 mg by mouth daily as needed for constipation. ??? ferrous sulfate 325 mg (65 mg iron) tablet Take 1 tablet (65 mg of iron total) by mouth daily. (Patient not taking: Reported on 05/26/2019 ) 60 tablet 3 ??? ibuprofen (ADVIL,MOTRIN) 600 mg tablet TAKE ONE TABLET BY MOUTH EVERY 6 HOURS NEEDED FOR PAINMAX OF 3200MG / 24HRS 0 ??? norelgestromin-ethinyl estradiol (XULANE) 150-35 mcg/24 hr patch Apply 1 patch each week for 3 weeks, then remove for 1 week. (Patient not taking: Reported on 05/26/2019 ) 3 patch 11 No current facility-administered medications for this visit. ALLERGIES / CONTRAINDICATIONS Allergies Allergen Reactions ??? Bupropion Hcl Anxiety flush, anger flush, anger MEDICAL HISTORY Past Medical History: Diagnosis Date ??? Abnormal Pap Smear Personal History ??? Abuse Tobacco Smoking 06/27/2010 quit 2013 ??? Anemia ??? Anemia Iron Deficiency 12/03/2018 ??? Bipolar I Depressed ([facility]) 10/22/2011 ??? Cervical Dysplasia Personal History 04/02/2010 ??? Chronic Tension Type Headache Not Intractable 09/05/2014 ??? Depression Major Recurrent ([facility]) 10/22/2011 Depressive disorder, major, recurrent episode [...] ??? OTHER SURGICAL HISTORY 02/22/2007 Leep procedure SOCIAL HISTORY Social History Socioeconomic History ??? Marital status: Single Spouse name: Ovi Alexander ??? Number of children: 5 ??? Years of education: None ??? Highest education level: GED or equivalent Occupational History ??? None Social Needs ??? Financial resource strain: Not [...] More than three times a week Attends jainism service: Never Active member of club or organization: No Attends meetings of clubs or organizations: Never Relationship status: Living with partner ??? Intimate partner violence: Fear of current or ex partner: No Emotionally abused: No Physically abused: No Forced sexual activity: No Other Topics Concern ??? None Social History Narrative ??? None Social History Substance and Sexual Activity Alcohol Use Yes ??? Types: 1 Glasses of wine per week ??? Frequency: Monthly or less ??? Drinks per session: 1 or 2 ??? Binge frequency: Never Comment: I dont drink often. Maybe twice a month Social History Substance and Sexual Activity Drug Use Yes ??? Types: Marijuana FAMILY HISTORY Family History Problem Relation Age [...] put under ??? Suicide Attempts Sister OBJECTIVE VITAL SIGNS BP 108/60 (BP Location: Left arm, Patient Position: Sitting, Cuff Size: Regular) Pulse 73 Temp 37.2 ??C (Temporal) Resp 20 Ht 153 cm Wt 72.7 kg SpO2 98% ? Yes BMI 31.06 kg/m?? PHYSICAL EXAMINATION General: Alert and orientated x3, good hygiene, appropriately dressed. HEENT: Tympanic membranes are normal bilaterally. Oropharynx is without erythema or exudate. Nasal mucosa is without injection. Neck is without adenopathy. Lymph Nodes: Not palpably enlarged and no nodules are palpated. Heart: Regular rate and rhythm without murmur. Lungs: Clear to auscultation. Abdomen: Soft and nontender with no masses. Extremities: Within normal limits. Skin: No suspicious lesions or rashes noted on exposed skin. ASSESSMENT / PLAN #1. Preoperative evaluation for surgery; tubal ligation. PLAN: The patient is ASA category 2. There is no contraindication to proceeding with anesthesia and surgery as planned. Appropriate EKG and lab work will be completed if indicated and reviewed prior tosurgery. Further recommendations per surgeon. Cardiac risk factors: none Pulmonary risk factors: none Sleep Apnea: none Steroid use within the past 12 months: none Diabetes: none Bleeding risk factors: none Anesthesia reactions: none Need for prophylactic antibiotics: none Beta elise: none #2. Esophagitis; status-post ER visit x2. PLAN: Her ER notes are reviewed. For further evaluation we will see if she is a candidate to have anupper endoscopy at the time of her tubal ligation. I will look into this further and provide her with further recommendations. Continue Carafate and Zantac as prescribed in the ER. #3. Follow-up. PLAN: The patient will contact the clinic with any new or worsening symptoms. This document serves as a record of services personally performed by Dr. Yarelis Baltazar. It was created on their behalf by Yuliet Cedeno, a trained family practice medical doctor. The creation of this record is based on the scribe's personal observations and the provider's statements to them. This document has been checked and approved by the attending provider. documented in this encounter Plan of Treatment Upcoming Encounters Date Type Specialty Care Team Description 08/30/2022 Clinical Communication Admitting/Central Scheduling 09/02/2022 Comprehensive Visit Endocrinology Ricardo Winkler, SILVIO, C.N.P., D.N.P. [address] [place] [address] documented as of this encounter Visit Diagnoses Diagnosis Preoperative Exam - Primary documented in this encounter Additional Health Concerns Assessment Noted Time PHQ-9 Depression Total Score: 13 12/04/2017 10:[address] documented as of this encounter Care Teams Industrial Seamstress Relationship Specialty Start Date End Date Yarelis Reyes M.D. PCP - General 05/08/17 01/03/21 [address] [place] [address] documented as of this encounter
--- OUTSIDE RECORDS SUMMARY | 2022-08-16 21:28 | XMS_ITS | Encounter Summary ---
:1985 Author Organization [facility] Address [address] [place] [address] Care Team Providers Name Role Phone Yarelis Reyes M.D. Primary Care Provider [phone] Encounter Details Date Type Department Care Team Description 06/21/2019 Nurse Triage Department of [facility] JdMackenzie R. N. Medicine, [facility], in [place], [place] [address] [place] [address] Social History Tobacco Use Types Packs/Day Years [...] do you attend samaritan or Never 2021 yazidi services? Do you [...] Ricardo Winkler, SILVIO, C.N.P., D.N.P. [address] [place] [address] documented as of this encounter Visit Diagnoses Not on filedocumented in this encounter Additional Health Concerns Assessment Noted Time PHQ-9 Depression Total Score: 13 12/04/2017 10:23 AM C documented as of this encounter Care Teams Canal Boat Operator Relationship Specialty Start Date End Date Yarelis Reyes M.D. PCP - General 05/08/17 01/03/21 [address] [place] [address] documented as of this encounter
--- OUTSIDE RECORDS SUMMARY | 2022-08-16 21:28 | XMS_ITS | Encounter Summary ---
:1985 Author Organization [facility] Address [address] [place] [address] Care Team Providers Name Role Phone Yarelis Reyes M.D. Primary Care Provider Reason for Referral Outpatient (Routine) - Closed Specialty Diagnoses / Procedures Referred By Contact Refer red To Contact Obstetrics and Jhonny Enriquez M.D. [facility] Gynecology [address] [place] [address] Referral ID Status Reason Start Date Expiration Date Visits Requ ested Visits Authorized [id number] Closed 09/01/2019 08/31/2020 1 1 Reason for Visit Reason Comments Gynecologic Exam Outpatient (Routine) - Closed Specialty Diagnoses / Procedures Referred By Contact Refer red To Contact Obstetrics Jhonny Fisher M.D. [facility] Gynecology [address] [place] [address] Referral ID Status Reason Start Date Expiration Date Visits Requ ested Visits Authorized [id number] Closed 08/27/2019 08/26/2020 1 1 Encounter Details Date Type Department Care Team Description 09/01/2019 Office Visit Department of Jhonny Enriquez, Prolapse Norah freitas (Primary Dx); Obstetrics and Efren Cystocele Mid line Gynecology in [place], [place] [address] [place] [phone] Social History Tobacco Use Types Packs/Day Years Used Date Smoking Tobacco: Former Cigarettes 0 /11/1995 - 2015 Smokeless Tobacco: Former Comments: Smoked [...] or relatives? How often do you attend catholic or Never 2021 church services? Do you belong to any clubs or No 01/25/2022 organizations such as catholic groups, unions, fraternal or athletic groups, or [...] Sign Reading Time Taken Comments Blood Pressure 92/66 09/01/2019 11:03 AM CDT Pulse 78 09/01/2019 11:03 AM CDT Temperature - - Respiratory Rate 16 09/01/2019 11:03 AM CDT Oxygen Saturation - - Inhaled Oxygen Concentration - - Weight 72 kg (158 lb 11.7 oz) 09/01/2019 11:03 AM CDT Height 153 cm (5' 0.24) 09/01/2019 11:03 AM CDT Body Mass Index 30.76 09/01/2019 11:03 AM CDT documented in this encounter Progress Notes Jhonny Enriquez M.D. - 09/01/2019 11:15 AM CDT MELANGEUR OPERATOR FOLLOW UP CHIEF COMPLAINT / REASON FOR VISIT Uterine prolapse HISTORY OF PRESENT ILLNESS Keily Ng is a 33 y.o. female, , with No LMP recorded. who presents today in follow up for uterine prolapse. She is amenorrheic since her vaginal delivery. She is nursing exclusively. She complains or worsening pelvic prolapse symptoms since the of her last child 02/28/2019. She complains of daily bulge and vaginal pressure symptoms that are worse with standing and lifting. She feels a small ball in the vagina with standing, lifting, and exertion. She reports that her tissue bulges into the vagina but not beyond the introitus. She denies chronic constipation but will occasionally use stool softener. She denies rectal splinting or pain with bowel movement. She has a long history of urge urine symptoms and urinary frequency. She has occasional urge urine incontinence. She doeshave occasional postvoid dribbling. She denies recurrent urinary tract infections. She denies nocturia. She denies stress urinary incontinence. She is sexually active and denies dyspareunia or postcoita l spotting. She had a consult with urogynecology at [facility] who found pelvic floor tension myalgia, grade 1 mild pelvic organ prolapse with grade 1 uterine prolapse, grade 1 cystocele and grade 1 rectocele. They also diagnosed her with urinary urgency and frequency symptoms. They are having the patient see physical therapy for pelvic floor physical therapy and E stim therapy. The also discussed theoption vaginal pessary. The patient would like evaluation today and is interested in vaginal pessary trial to help with her pelvic organ prolapse symptoms. She has her first appointment with physical therapy next week. SUBJECTIVE Allergies Allergen Reactions ??? Bupropion Hcl Anxiety flush, anger Current Outpatient Medications: ??? bisacodyl (DULCOLAX) 5 mg EC tablet, Take 10 mg by mouth daily as needed for constipation., Disp: , Rfl: ??? breast pump (PUMP IN STYLE ADVANCED) device, Electric breast pump for home use. Gestation age atdelivery: 37 weeks. Reason for need: nursing. Length of need: 12 months, Disp: , Rfl: ??? acetaminophen (TYLENOL) 500 mg capsule, Take by mouth every 6 (six) hours as needed for pain., Disp: , Rfl: ??? ibuprofen (ADVIL,MOTRIN) 600 [...] every 6 (six) hours., Disp: , Rfl: Past Medical History: Diagnosis [...] PROCEDURE - LOOP ELECTRO EXCISION PROCEDURE 2006 OB History Para Term AB Living 7 5 4 1 2 5 SAB TAB Ectopic Molar Multiple Live Births 2 0 0 0 5 # Outcome Date GA Lbr Saroj/2nd Weight Sex Delivery Anes PTL Lv 7 Term 02/28/19 37w5d 3.487 kg F Vag-Spont N CHERYL Comments: Precipitous delivery Complications: Precipitous Labor <3 Hours 6 Term 02/17/15 39w2d 3.43 kg M Vag-Spont N CHERYL Comments: precipitous delivery 5 11/06/10 36w1d 2.353 kg M Vag-Spont Y CHERYL 4 Term 08/16/08 38w0d 2.75 kg F Vag-Spont Y CHERYL Comments: Labor 3 SAB 2006 9w0d SAB SA 2 SAB 2005 11w0d SAB SA 1 Term 02/10/02 38w0d 2.722 kg F Vag-Spont N CHERYL Social History Socioeconomic History ??? Marital [...] Packs/day: 0.00 Types: Cigarettes Start date: 11/24/1995 Last attempt to quit: 2016 Years since quittin.8 ??? Smokeless tobacco: Former User ??? Tobacco [...] activity: Yes Partners: Male control/protection: Female Sterilization Lifestyle ??? Physical activity: Days per week: 4 days Minutes per session: 20 min ??? Stress: To some extent Relationships ??? Social connections: Talks on phone: More than three times a week Gets together: More than three times a week Attends church service: Never Active member of club or organization: No Attends meetings of clubs or organizations: Never Relationship status: Living with partner ??? Intimate partner violence: Fear of current or ex partner: No Emotionally abused: No Physically abused: No Forced sexual activity: No Other Topics Concern ??? Not on file Social History Narrative ??? Not on file OBJECTIVE BP 92/66 (BP Location: Right arm, Patient Position: Sitting, Cuff Size: Regular) Pulse 78 Resp 16 Ht 153 cm Wt 72 kg ? Yes BMI 30.76 kg/m?? General: Well-developed, well-nourished female in no apparent distress. Neurological: Alert and oriented x3. Lungs: Clear to auscultation bilaterally with good inspiratory effort. No wheezing rhonchi or rales noted. Breathing nonlabored. Heart: Regular rate and rhythm without murmur. No JVD. No peripheral vascular disease. Abdomen: Soft, nontender, nondistended, positive bowel sounds. No organomegaly. No rebound, no guarding. Pelvic exam: Normal external female genitalia. normal Bartholin, Urethral and [place]'s glands. Normalvaginal mucosa without lesions. Well estrogenized. Grade 1 cystocele, grade 1 rectocele. Grade 1 uterine prolapse to spine. Normal multiparous cervix without lesions. No cervical motion tenderness. Uterus is normal size, shape, consistency, anteflexed, mobile, nontender. No adnexal masses or tenderness bilaterally. There is pain and tightness of pelvic floor muscles with palpation. Rectal exam: No external hemorrhoids noted. No rectovaginal nodularity noted. Examination confirms the vaginal exam. Extremities: No clubbing cyanosis or edema. Nontender bilaterally. Bar Welder for pelvic exam or qualifying procedure: Yulisa Wahl, ToP.N. IMPRESSION / PLAN Keily Ng is a 33 y.o. female who presents for follow up of pelvic organ prolapse. 1 Symptomatic mild grade 1 uterine prolapse, grade 1 cystocele, grade 1 rectocele. 2 Pelvic floor tension myalgia - I discussed the patient's symptoms and physical findings. I discussed pelvic organ prolapse with the patient. Also discussed her pelvic floor tension myalgia symptoms and findings. - I recommend the patient see physical therapy as scheduled for pelvic floor physical therapy as well as E stim therapy for her pelvic floor tension myalgia symptoms. She reports her first appointment is on 09/06/2019. - I discussed management options for pelvic organ prolapse. Patient is interested in trial of vaginal pessary. I reviewed the risk, benefits, alternatives, and indication of vaginal pessary with the patient. She desires to proceed. - I placed a consult for the patient see Erin Boyce NP for further evaluation and fitting vaginal pessary. - All of the patient's questions were answered. - Problem list reviewed and updated. - Follow up in 2 weeks. - 30 minute visit with greater than 50% spent in counseling. Jhonny Enriquez MD Medical Office Specialist - Obstetrics and Gynecology [facility] documented in this encounter Plan of Treatment Upcoming Encounters Date Type Specialty Care Team Description 08/30/2022 Clinical Communication Admitting/Central Scheduling 09/02/2022 Comprehensive Visit Endocrinology Ricardo Winkler APRN, C.N.P., D.N.P. [address] [place] [address] Scheduled Referrals Name Type Priority Associated Order Schedule Diagnoses Obstetrics and Outpatient Referral Routine Expect ed: Gynecology office 09/15/2019 visit (clinic) (Approximate) , Expires: 09/01/2022 documented as of this encounter Visit Diagnoses Diagnosis Prolapse Uterine - Primary Cystocele Midline documented in this encounter Additional Health Concerns Assessment Noted Time PHQ-9 Depression Total Score: 13 12/04/2017 10:23 AM C documented as of this encounter Care Teams Corn Crop Supervisor Relationship Specialty Start Date End Date Yarelis Reyes M.D. PCP - General 05/08/17 01/03/[address] [phone] documented as of this encounter
--- OUTSIDE RECORDS SUMMARY | 2022-08-16 21:28 | XMS_ITS | Encounter Summary ---
:1985 Author Organization [facility] Address [address] [place] [address] Care Team Providers Name Role Phone Yarelis Reyes M.D. Primary Care Provider [phone] Reason for Visit Reason Comments Pessary Check Fitting Outpatient (Routine) - Closed Specialty Diagnoses / Procedures Referred By Contact Refer red To Contact Obstetrics and Jhonny Enriquez M.D. [facility] Gynecology [address] [place] [address] Referral ID Status Reason Start Date Expiration Date Visits Requ ested Visits Authorized [id number] Closed 09/01/2019 08/31/2020 1 1 Encounter Details Date Type Department Care Team Description 09/15/2019 Office Visit Department of Erin Boyce Cystocele Rectocele With Uterine Prolapse (Primary Dx); Obstetrics and J, SILVIO, C.N.P. Pelvic Floor Tension Myalgia Gynecology in [address] [place], [place] [address] [facility] [address] [place], [place] [phone] [address] (Work) [phone] Social History Tobacco Use Types Packs/Day Years [...] or relatives? How often do you attend rastafarian or Never 2021 muslim services? Do you belong to any clubs or No 01/25/2022 organizations such as rastafarian groups, unions, fraternal or athletic groups, or [...] Sign Reading Time Taken Comments Blood Pressure 92/58 09/15/2019 9:37 AM CDT Pulse 80 09/15/2019 9:37 AM CDT Temperature - - Respiratory Rate - - Oxygen Saturation - - Inhaled Oxygen Concentration - - Weight 72.8 kg (160 lb 7.9 oz) 09/15/2019 9:37 AM CDT Height - - Body Mass Index 31.1 09/01/2019 11:03 AM CDT documented in this encounter Progress Notes Erin Boyce, SILVIO, C.N.P. - 09/15/2019 9:45 AM CDT CHIEF COMPLAINT/REASON FOR VISIT Chief Complaint Patient presents with ??? Pessary Check Fitting HISTORY OF PRESENT ILLNESS Keily is a 33 year old female who presents for pessary fitting. She was most recently seen in the department of Obstetrics and Gynecology on 09/01/[address] Enriquez. He diagnosed her with symptomaticgrade 1 cystocele, grade 1 uterine prolapse, and grade 1 rectocele. She also has history of pelvic floor tension myalgia and was working with physical therapy on management. She has decided she would like to proceed with pessary fitting to help treat her pelvic floor tension myalgia and pelvic organ prolapse. We reviewed the risks, benefits, and side effects with the pessary. She is agreeable to proceeding with pessary fitting today. CURRENT MEDICATIONS Current Outpatient Medications Medication Sig [...] nursing. Length of need: 12 months ??? ibuprofen (ADVIL,MOTRIN) 600 mg tablet TAKE ONE TABLET BY MOUTH EVERY 6 HOURS NEEDED FOR PAINMAX OF 3200MG / 24HRS 0 ??? vitamin-iron fumarate-FA 28 mg iron- 800 mcg per tablet Take 1 tablet by mouth. ??? sucralfate (CARAFATE) 1 gram tablet Take 1 g by mouth every 6 (six) hours. No current facility-administered medications for this visit. ALLERGIES Allergies Allergen Reactions ??? Bupropion Hcl Anxiety flush, anger VITAL SIGNS BP 92/58 (BP Location: Left arm, Patient Position: Sitting, Cuff Size: Regular) Pulse 80 Wt 72.8kg ? Yes BMI 31.10 kg/m?? PHYSICAL EXAMINATION General: She is a well-appearing female in no acute distress. Pelvis: External genitalia appears atrophic but otherwise intact. Digital exam is performed to assess for proper pessary sizing. A size 4 ring pessary with support was inserted and was noted to be an appropriate fit. Patient was then instructed to walk around, sit down, bend over, and go to the bathroom. She did so without any discomfort, irritation, or dislodging of the pessary. She is pleased with the device and would like to trial this pessary. ASSESSMENT/PLAN #1 Cystocele Rectocele With Uterine Prolapse #2 Pelvic Floor Tension Myalgia Keily was fit with a size 4 ring pessary with support. She tolerated activity well today with the pessary in place. She was able to demonstrate removal, cleaning, and reinsertion of the pessary without any difficulty. She was provided the [facility] guide to pessary care. I would like her to contact me if she has any concerns or questions. My card was provided. She will plan to manage her pessary independently, and follow up as needed in the future. At this point, she does not have any concerns or questions and is agreeable to this plan of care. documented in this encounter Plan of Treatment Upcoming Encounters Date Type Specialty Care Team Description 08/30/2022 Clinical Communication Admitting/Central Scheduling 09/02/2022 Comprehensive Visit Endocrinology Ricardo Winkler APRN, C.N.P., D.N.P. [address] [place] [address] documented as of this encounter Visit Diagnoses Diagnosis Cystocele Rectocele With Uterine Prolaps e - Primary Pelvic Floor Tension Myalgia documented in this encounter Additional Health Concerns Assessment Noted Time PHQ-9 Depression Total Score: 13 12/04/2017 10:[address] documented as of this encounter Care Teams Fisher Lampara Net Relationship Specialty Start Date End Date Yarelis Reyes M.D. PCP - General 05/08/17 01/03/21 [address] [place] [address] documented as of this encounter
--- OUTSIDE RECORDS SUMMARY | 2022-08-16 21:28 | XMS_ITS | Encounter Summary ---
:1985 Author Organization [facility] Address [address] [place] [address] Care Team Providers Name Role Phone Yarelis Reyes M.D. Primary Care Provider Reason for Referral Outpatient (Routine) - Closed Specialty Diagnoses / Procedures Referred By Contact Refer red To Contact Obstetrics and Diagnoses Follow Up Examination Postoperative Visit Jhonny Enriquez M.D. [facility] Gynecology [address] [place] [address] Referral ID Status Reason Start Date Expiration Date Visits Requ ested Visits Authorized [id number] Closed 05/26/2019 05/25/2020 1 1 Encounter Details Date Type Department Care Team Description 05/26/2019 Orders Only Department of Jhonny Enriquez, Follow Up Ex amination Obstetrics and Efren Postoperative Visit Gynecology in (Primary Dx) [place], [place] [address] [place] [phone] Social History Tobacco Use Types Packs/Day Years [...] or relatives? How often do you attend baptism or Never 2021 temple services? Do you belong to any clubs or No 01/25/2022 organizations such as baptism groups, unions, fraternal or athletic groups, or [...] place to sleep or slept in a fdc (including now)? Education Answer Date Recorded What [...] C.N.P., D.N.P. [address] [place] [address] Scheduled Referrals Name Type Priority Associated Diagnoses Order S chedule Obstetrics and Outpatient Referral Routine Follow Up Examinati on Expected: Gynecology Post Op Postoperative Visit (clinic) (Approximate), Expires: 05/26/2022 documented as of this encounter Visit Diagnoses Diagnosis Follow Up Examination Postoperative Visi t - Primary documented in this encounter Additional Health Concerns Assessment Noted Time PHQ-9 Depression Total Score: 13 12/04/2017 10:[address] documented as of this encounter Care Teams Rest Room Maid Relationship Specialty Start Date End Date Yarelis Reyes M.D. PCP - General 05/08/17 01/03/21 [address] [place] [phone] documented as of this encounter
--- OUTSIDE RECORDS SUMMARY | 2022-08-16 21:28 | XMS_ITS | Encounter Summary ---
:1985 Author Organization [facility] Address [address] [place] [address] Care Team Providers Name Role Phone Yarelis Reyes M.D. Primary Care Provider Encounter Details Date Type Department Care Team Description 03/01/2019 Orders Only Department of Family Micaela lam, [facility] rotary soil stabilizer operator [address] [place], [place] [address], [place] [phone] (Wo rk) Social History Tobacco Use Types [...] do you attend amish or Never 2021 nondenominational services? Do you [...] or slept in a fdc (including now)? Sex Assigned at Date Recorded Female 06/02/2018 2:38 PM CDT documented as of this encounter Plan of Treatment Upcoming Encounters Date Type Specialty Care Team Description 08/30/2022 Clinical Communication Admitting/Central Scheduling 09/02/2022 Comprehensive Visit Endocrinology Ricardo Winkler, SILVIO, C.N.P., D.N.P. [address] [place] [address] documented as of this encounter Visit Diagnoses Not on filedocumented in this encounter Additional Health Concerns Assessment Noted Time PHQ-9 Depression Total Score: 13 12/04/2017 10:[address] documented as of this encounter Care Teams Capacitor Repairer Relationship Specialty Start Date End Date Yarelis Reyes M.D. PCP - General 05/08/17 01/03/21 [address] [place] [address] documented as of this encounter
--- OUTSIDE RECORDS SUMMARY | 2022-08-16 21:28 | XMS_ITS | Encounter Summary ---
:1985 Author Organization [facility] Address [address] [place] [address] Care Team Providers Name Role Phone Yarelis Reyes M.D. Primary Care Provider [phone] Encounter Details Date Type Department Care Team Description 07/21/2019 Documentation Department of Obstetrics and [facility], Shimon Fritz, Gynecology, Division of R.N. Urogynecology in [place] [address] [address] [place], [place] [address] [facility] [address] [place] [address] [phone] Social History Tobacco Use Types Packs/Day Years [...] or relatives? How often do you attend taoism or Never 2021 lutheran services? Do you belong to any clubs or No 01/25/2022 organizations such as taoism groups, unions, fraternal or athletic groups, or [...] documented as of this encounter Progress Notes Angelito Patterson RAmarisN. - 07/21/2019 9:48 AM CDT PREAPPOINTMENT RECORD REVIEW. Information collected has not been verified by the patient. Patient not seen. Patient will be seen by Robe Raygoza MD on 07/23/2019. ANTICIPATED SURGICAL DATE/PROCEDURE: REFERRING PROVIDER: DIAGNOSIS: Cystocele HISTORY OF PRESENT ILLNESS: Patient Message 06/30/19: I feel like my bladder keeps coming down further and further. I'm crystal sore and it's giving me horrible anxiety. do I try to make an appt sooner than the specialist in [place]? it's on the . I just don't know what to do with this. I'm having a hard time doing nothing. especially since I'm non stop moving and lifting the baby. I love such an active lifestyle. I'm just not really sure what to do at this point. it's affecting my whole life 05/26/2019 Progress Note Jhonny Enriquez MD CHIEF COMPLAINT / REASON FOR VISIT 1 Elective sterilization 2 Concern for uterine prolapse ?? HISTORY OF PRESENT ILLNESS Keily Ng is [...] She has prefer reviewed and signed the [place] sterilizationconsent form on 04/07/2019. She would like to proceed for with elective sterilization procedure in 3weeks. ?? The patient's second concern is for possible [...] constipation, or diarrhea. She denies rectal splinting. ?? IMPRESSION / PLAN Keily Ng is a 33 y.o. female who presents for elective sterilization and concern about possible uterine prolapse. ?? 1 Request elective sterilization - The patient [...] reviewed the risk for ectopic after sterilization. ??I reviewed the increased riskfor post-sterilization depression and regret, especially for women under the age of 30. - The [place] sterilization consent form was signed on??04/07/2019. - The patient desires to proceed with laparoscopic bilateral salpingectomy. She requests surgery on 06/17/2019. - I contacted [facility] scheduled the patient for laparoscopic bilateral salpingectomy [...] or rectocele. Thereis could lateral vaginal support. ?? COPPER PLATE PRINTER/PAP HISTORY: PAST MEDICAL HISTORY: Past Medical History: Diagnosis Date ??? Abnormal [...] Vaginitis 04/10/2018 recurrent bacterial vaginitis PAST SURGICAL HISTORY: Past Surgical History: Procedure Laterality Date ??? LAPAROSCOPIC APPENDECTOMY 12/25/2012 ??? LAPAROSCOPIC SALPINGECTOMY Bilateral 06/17/2019 ??? LEEP PROCEDURE - LOOP ELECTRO EXCISION PROCEDURE 2006 ??? OTHER SURGICAL HISTORY 02/22/2007 Leep procedure ??? VAGINAL DELIVERY 2001 2007 2009 2014 2018 MEDICATIONS: Current Outpatient Medications on File Prior to Visit Medication Sig Dispense Refill ??? acetaminophen (TYLENOL) [...] facility-administered medications on file prior to visit. ALLERGIES: Allergies Allergen Reactions ??? Bupropion Hcl Anxiety flush, anger flush, anger SOCIAL HISTORY: Social History Socioeconomic History ??? Marital status: [...] Last attempt to quit: 2016 Years since quittin.7 ??? Smokeless tobacco: Former User ??? Tobacco [...] More than three times a week Attends lutheran service: Never Active member of club or organization: No Attends meetings of clubs or organizations: Never Relationship status: Living with partner ??? Intimate partner violence: Fear of current or ex partner: No Emotionally abused: No Physically abused: No Forced sexual activity: No Other Topics Concern ??? Not on file Social History Narrative ??? Not on file TOBACCO USE: Social History Tobacco Use Smoking Status Former Smoker ??? Types: Cigarettes ??? Start date: 11/24/1995 ??? Last attempt to quit: 2015 ??? Years since quittin.7 Smokeless Tobacco Former User Tobacco Comment Smoked throughout my childhood. Quit and restarted a couple times FAMILY HISTORY: Family History Problem Relation Age of Onset [...] Attempts Sister ??? No Known Problems Brother BMI:There is no height or weight on file to calculate BMI. TESTING/IMAGING/PATHOLOGY: UDS: Simple UDS + Uroflow 07/23/2019 CYSTO: MRI CT U/S CxR ECG DATE: 02/03/19 H.7 WBC: 10.1 PLT: 292 GL: Cr: 0.58 (12/25/18) CA 125: Albumin: hCG: A1C: Na: K: T&S: FOLLOWING TESTS/IMAGING HAVE BEEN ORDERED: PENDING/TO-DO: LIST CONSENT ADM NATALIE: H and P 05/31/2019 PREOP CLASS ADV DIR TEACHING STUDY PT CHARGE documented in this encounter Plan of Treatment Upcoming Encounters Date Type Specialty Care Team Description 08/30/2022 Clinical Communication Admitting/Central Scheduling 09/02/2022 Comprehensive Visit Endocrinology Ricardo Winkler APRN, C.N.P., D.N.P. [address] [place] [address] documented as of this encounter Visit Diagnoses Not on filedocumented in this encounter Additional Health Concerns Assessment Noted Time PHQ-9 Depression Total Score: 13 12/04/2017 10:[address] documented as of this encounter Care Teams Social Worker Delinquency Prevention Relationship Specialty Start Date End Date Yarelis Reyes M.D. PCP - General 05/08/17 01/03/21 [address] [place] [phone] documented as of this encounter
--- OUTSIDE RECORDS SUMMARY | 2022-08-16 21:28 | XMS_ITS | Encounter Summary ---
:1985 Author Organization [facility] Address [address] [place] [address] Care Team Providers Name Role Phone Yarelis Reyes M.D. Primary Care Provider [phone] Reason for Visit Reason Onset Date Comments discuss sterilization 05/25/2019 Encounter Details Date Type Department Care Team Description 05/25/2019 Clinical Communication Department of Branden gonzalez uss sterilization Family Medicine, Elda hyman Judy, M.D. in [facility] [address] [phone] Social History Tobacco Use Types Packs/Day Years [...] or relatives? How often do you attend mormon or Never 2021 muslim services? Do you belong to any clubs or No 01/25/2022 organizations such as mormon groups, unions, fraternal or athletic groups, or [...] this encounter Miscellaneous Notes Telephone Encounter - Jhonny Carr M.D. - 05/28/2019 10:36 AM CDT Patient seen in clinic. Jhonny Carr M.D. Telephone Encounter - Lori Stauffer R.N. - 05/25/2019 2:09 PM CDT Spoke with patient. She stated that she would like to schedule surgery on 06/17/19. She would also like to see you in clinic for evaluation of pelvic pressure/ rectocele. She is scheduled to see you tomorrow for this and also to set up surgery/sign consents. Telephone Encounter - Farooq Estrada - 05/25/2019 11:34 AM CDT Reason for Communication: patient called and wanted to talk to dr carr to discuss sterilization. Please advise. Current Can Nursing/Provider leave a detailed message: yes Did the patient refuse triage through Nurse line? (for symptom based concerns): Action Needed: Name of Medication (if relevant): documented in this encounter Plan of Treatment Upcoming Encounters Date Type Specialty Care Team Description 08/30/2022 Clinical Communication Admitting/Central Scheduling 09/02/2022 Comprehensive Visit Endocrinology Ricardo Winkler, SILVIO, C.N.P., D.N.P. [address] [place] [address] documented as of this encounter Visit Diagnoses Not on filedocumented in this encounter Additional Health Concerns Assessment Noted Time PHQ-9 Depression Total Score: 13 12/04/2017 10:[address] documented as of this encounter Care Teams Military Police Officer Relationship Specialty Start Date End Date Yarelis Reyes M.D. PCP - General 05/08/17 01/03/21 [address] [place] [address] documented as of this encounter
--- OUTSIDE RECORDS SUMMARY | 2022-08-16 21:28 | XMS_ITS | Encounter Summary ---
:1985 Author Organization [facility] Address [address] [place] [address] Care Team Providers Name Role Phone Yarelis Reyes M.D. Primary Care Provider [phone] Encounter Details Date Type Department Care Team Description 07/23/2019 Procedure visit Department of Robe Raygoza Cystocele Midline Obstetrics and Efren Palmer (Primary Dx) Gynecology, Division of [address] [place] [address] Urogynecology in [place], [place] [address] [place] [address] [place], [place] (Work) [address] [phone] Social History Tobacco Use Types Packs/Day Years [...] do you attend sikh or Never 2021 orthodoxy services? Do you [...] PM CDT documented as of this encounter Procedure Notes Robe Raygoza M.D. - 07/23/2019 11:15 AM CDTAssociated Order(s): OBG Urodynamic Studies Pre-Procedure Diagnose(s): Cystocele Midline Post-Procedure Diagnose(s): Cystocele Midline OBG Urodynamic Studies Date/Time: 07/23/2019 11:55 AM Performed by: Robe Raygoza M.D. Authorized by: Robe Raygoza M.D. Care team members present 1. Michelle Hogue R.N. PROCEDURE DETAILS: Procedures: Combined (CMG S + Uro) Equipment used: Calibrated electronically Cough stress test: negative Flow pattern: thompson variant Interpretation: normal Voided volume (mL): 425 Post-void residual (mL): 100 Postvoid residual measured by: catheter Volume infused (mL): 400 Detrusor activity:: stable during filling Support of significant prolapse:: yes (1 scopette, not large) Valsalva-related leakage: absent Cough-related leakage: present (dime to nickel size ) Volume of stress urinary incontinence: minimal Repeat Uroflow: no Uroflow: normal Cystometry: stress urinary incontinence and no urodynamic evidence of detrusor overactivity The following procedures were performed during this urodynamic study: CMG simple, post-void residual - catheter, post-void residual - ultrasound, complex uroflow and bladder irrigation installation CONSENT Consent obtained: verbal Consent given by: patient The benefits, risks and alternatives to the procedure and the potential need for sedation or anesthesia as well as the names, roles, and responsibilities of healthcare team members performing significant interventional tasks were discussed with the patient and/or decision maker. UNIVERSAL PROTOCOL All relevant documentation and testing were reviewed and available. All required blood products, implants, devices and or special equipment were made available as applicable. Pre-procedure verificationwas conducted and the correct site was marked if required. A fire risk assessment was done as applicable. The procedural time-out was conducted prior to performing the procedure and confirmed in a procedural pause. PRE-PROCEDURE DETAILS: Indications: urinary incontinence and prolapse Appropriate hand hygiene, gown, cap, mask, protective eyewear, sterile gloves, skin preparation, sterile drape, and strict aseptic technique were utilized as applicable for the procedure.: yes Site preparation: Povidone-iodine SEDATION / ANESTHESIA Anesthesia method: none POST-PROCEDURE DETAILS Procedure completed successfully. yes Complications: no apparent complications Comments Patient voided 450 ml in bathroom, PVR by ultrasound was 80 ml. Urine was sent for UA and culture. GYNSURG Exam Amb documented in this encounter Plan of Treatment Upcoming Encounters Date Type Specialty Care Team Description 08/30/2022 Clinical Communication Admitting/Central Scheduling 09/02/2022 Comprehensive Visit Endocrinology Ricardo Winkler APRN, C.N.P., D.N.P. [address] [place] [phone] documented as of this encounter Procedures Procedure Name Priority Date/Time Associated Comments Diagnosis MICROSCOPIC AUTOMATED Routine 07/23/2019 11:42 Re sults for this AM CDT procedure are i n the results section. BACTERIAL CULTURE, Routine 07/23/2019 11:42 Cystocele Midline Results for this AEROBIC + SUSC, URINE AM CDT proced ure are in the results section. URINALYSIS WITH Routine 07/23/2019 11:42 Cystocele Midline Res ults for this MICROSCOPIC AM CDT procedure are i n the results section. MO UROFLOWMETRY CMPLX Routine 07/23/2019 11:15 Cystocele Midli ne Results for this AM CDT procedure are i n the results section. MO IRRI BLAD SMPL Routine 07/23/2019 11:15 Cystocele Midline R esults for this LAVAGE&/INSTILL AM CDT procedure ar e in the results section. MO EDUARDO PST VOID RESID Routine 07/23/2019 11:15 Cystocele Midl ine Results for this US NON IMG AM CDT procedure are i n the results section. MO CYSTOMETROGRAM Routine 07/23/2019 11:15 Cystocele Midline R esults for this SIMPLE AM CDT procedure are i n the results section. documented in this encounter Results Microscopic Automated (07/23/2019 11:42 AM CDT) P athologist Signature Microscopy Normal 07/27/2019 11:48 AM CDT Specimen Anatomical Collection Method Collection Time Receive d Time (Source) Location / / Volume Laterality Urine 07/23/2019 11:42 07/27/2019 AM CDT 10:22 AM CDT Robe Raygoza M.D. LAB URINE ORDERABLES Performing Organization Address City/State/ZIP Code Phon e Number [facility] - [address] (ABNORMAL) Urinalysis with Microscopic: Urine, Catheter (07/23/2019 11:42 AM CDT) Analysis Performed At Patho logist Time Signature Source Catheter 07/27/2019 10:22 AM CDT Appearance Normal Normal 07/27/2019 11:31 AM CDT Osmolality, U 76 (L) 150 - 1150 07/27/2019 mOsm/kg 11:16 AM CDT pH, U 6.0 4.5 - 8.0 07/27/2019 11:16 AM CDT Comment: ----ADDITIONAL INFORMATION---- This test was developed and its performa nce characteristics determined by [facility] in a manner co nsistent with CLIA requirements. This test has not bee n cleared or approved by the U.S. Food and Drug Admin istration. Glucose 5 0 - 15 mg/dL 07/27/2019 11:31 AM CDT Protein, U <4 <26 mg/dL 07/27/2019 11:14 AM CDT Comment: ----ADDITIONAL INFORMATION---- On 05/20/2017 the total protein assay me thod changed resulting in approximately a 15% increase in prote in values. Protein/Osmolality <0.53 (H) <0.42 Ratio 07/27/2019 11:16 AM CDT Comment: ----ADDITIONAL INFORMATION---- On 05/20/2017 the total protein assay me thod changed resulting in approximately a 15% increase in prote in values. Predicted 24 Hr Protein <374 mg/24 h 07/27/2019 11:16 AM CDT Predicted Range <1512 mg/24 h 07/27/2019 11:16 AM CDT Hemoglobin, QL Negative Negative 07/27/2019 11:48 AM CDT Specimen Anatomical Collection Method Collection Time Receive d Time (Source) Location / / Volume Laterality Urine (Urine, 07/23/2019 11:42 07/27/2019 Catheter) AM CDT 10:22 AM CDT Robe Raygoza M.D. LAB URINE ORDERABLES Performing Organization Address City/[facility] Code Phon e Number [facility] - [address] Bacterial Culture, Aerobic + Susc, Urine (07/23/2019 11:42 AM CDT) P athologist Signature Urine Culture CANCELED 07/28/2019 2:30 PM CDT Comment: URNS was cancelled on 07/28/2019 at 14:3 0 by [id number]; due to age of specimen. !CNCL! Result canceled by the ancillary. Specimen Anatomical Collection Method Collection Time Receive d Time (Source) Location / / Volume Laterality Urine (Urine) 07/23/2019 11:42 07/27/2019 AM CDT 11:02 AM CDT Comment: Specimen Source Site: Urine Robe Raygoza M.D. LAB MICROBIOLOGY - GENERAL O RDERABLES Performing Organization Address City/[facility] Phon e Number [facility] - [address] [place] CYSTOMETROGRAM SIMPLE, MO EDUARDO PST VOID RESID US NON IMG, MO IRRI BLAD SMPL LAVAGE&/INSTILL, [place] UROFLOWMETRY CMPLX (07/23/2019 11:15 AM CDT) Narrative [...] Visit Diagnoses Diagnosis Cystocele Midline - Primary documented in this encounter Additional Health Concerns Assessment Noted Time PHQ-9 Depression Total Score: 13 12/04/2017 10:[address] documented as of this encounter Care Teams Vocal Performer Relationship Specialty Start Date End Date Yarelis Reyes M.D. PCP - General 05/08/17 01/03/21 [address], [place] [address] documented as of this encounter
--- OUTSIDE RECORDS SUMMARY | 2022-08-16 21:28 | XMS_ITS | Encounter Summary ---
:1985 Author Organization [facility] Address [address] [place] [address] Care Team Providers Name Role Phone Yarelis Reyes M.D. Primary Care Provider [phone] Encounter Details Date Type Department Care Team Description 06/14/2019 Orders Only Department of Obstetrics and Jhonny Enriquez M.D. Gynecology in [place], [place] 200 [place] [address] Social History Tobacco Use [...] or relatives? How often do you attend anglican or Never 2021 scientologist services? Do you belong to any clubs or No 01/25/2022 organizations such as anglican groups, unions, fraternal or athletic groups, or [...] place to sleep or slept in a skilled nursing (including now)? Education Answer Date Recorded What [...] Ricardo Winkler, SILVIO, C.N.P., D.N.P. [address] [place] [address] documented as of this encounter Visit Diagnoses Not on filedocumented in this encounter Additional Health Concerns Assessment Noted Time PHQ-9 Depression Total Score: 13 12/04/2017 10:23 AM [facility] documented as of this encounter Care Teams Asset Protection Assistant Relationship Specialty Start Date End Date Yarelis Reyes M.D. PCP - General 05/08/17 01/03/21 [address] [place] [address] documented as of this encounter
--- OUTSIDE RECORDS SUMMARY | 2022-08-16 21:28 | XMS_ITS | Encounter Summary ---
:1985 Author Organization [facility] Address [address] [place] [address] Care Team Providers Name Role Phone Yarelis Reyes M.D. Primary Care Provider [phone] Encounter Details Date Type Department Care Team Description 05/20/2019 Clinical Communication Department of Jhonny Enriquez, Obstetrics and Efren Gynecology in [place], [place] 200 [place] [address] Social History Tobacco Use Types [...] or relatives? How often do you attend mandaeism or Never 2021 hindu services? Do you belong to any clubs or No 01/25/2022 organizations such as mandaeism groups, unions, fraternal or athletic groups, or [...] or slept in a [facility] (including now)? Sex Assigned at Date Recorded Female 06/02/2018 2:38 PM CDT documented as of this encounter Miscellaneous Notes Telephone Encounter - Jhonny Enriquez M.D. - 05/20/2019 4:40 PM CDT [phone] I called the patient back. She left a message for me earlier this week when I was out of town. She desires elective sterilization. She signed the [place] sterilization consent form last month. She is interested in scheduling her sterilization procedure in the month of May. However she does not know her work schedule and her boyfriend's work schedule at this time. She will check the work schedules and then contact me in the next few days so that we can schedule her surgical procedure. I recommend that she remain abstinent from now until the sterilization procedures performed. Jhonny Enriquez M.D. documented in this encounter Plan of Treatment Upcoming Encounters Date Type Specialty Care Team Description 08/30/2022 Clinical Communication Admitting/Central Scheduling 09/02/2022 Comprehensive Visit Endocrinology Ricardo Winkler APRN, C.N.P., D.N.P. [address] [place] [address] documented as of this encounter Visit Diagnoses Not on filedocumented in this encounter Additional Health Concerns Assessment Noted Time PHQ-9 Depression Total Score: 13 12/04/2017 10:23 AM C documented as of this encounter Care Teams Dental Officer Relationship Specialty Start Date End Date Yarelis Reyes M.D. PCP - General 05/08/17 01/03/21 [address] [place] [address] documented as of this encounter
--- OUTSIDE RECORDS SUMMARY | 2022-08-16 21:28 | XMS_ITS | Encounter Summary ---
:1985 Author Organization [facility] Address [address] [place] [address] Care Team Providers Name Role Phone Yarelis Reyes M.D. Primary Care Provider [phone] Encounter Details Date Type Department Care Team Description 07/02/2019 Clinical Communication Department of Obstetrics Robe Raygoza and Gynecology, Division J, M.DAmaris of Urogynecology in [address] [place] [address] [place] [address] [place] [address] [phone] Social History Tobacco Use Types Packs/Day Years [...] or relatives? How often do you attend yazidi or Never 2021 tenriism services? Do you belong to any clubs or No 01/25/2022 organizations such as yazidi groups, unions, fraternal or athletic groups, or [...] this encounter Miscellaneous Notes Telephone Encounter - Robe Raygoza M.D. - 07/02/2019 5:13 PM CDT ----- Message from Ninoska Perez R.N. sent at 07/02/2019 1:26 PM CDT ----- Regarding: cystocele new patient Patient is scheduled in urology for 08/17 cystocele. Is patient able to be seen sooner by Dr. Raygoza on his calendar in [place]? Thank you Flori documented in this encounter Plan of Treatment Upcoming Encounters Date Type Specialty Care Team Description 08/30/2022 Clinical Communication Admitting/Central Scheduling 09/02/2022 Comprehensive Visit Endocrinology Ricardo Winkler APRN, C.N.P., D.N.P. [address] [place] [address] documented as of this encounter Visit Diagnoses Not on filedocumented in this encounter Additional Health Concerns Assessment Noted Time PHQ-9 Depression Total Score: 13 12/04/2017 10:[address] documented as of this encounter Care Teams Commercial Credit Analyst Relationship Specialty Start Date End Date Yarelis Reyes M.D. PCP - General 05/08/17 01/03/21 [address] [place] [phone] documented as of this encounter
--- OUTSIDE RECORDS SUMMARY | 2022-08-16 21:28 | XMS_ITS | Encounter Summary ---
:1985 Author Organization [facility] Address [address] [place] [address] Care Team Providers Name Role Phone Yarelis Reyes M.D. Primary Care Provider [phone] Reason for Visit Reason Comments ? Yeast Infection Appointment Request (Routine) - Closed Specialty Diagnoses / Procedures Referred By Contact Refer red To Contact Obstetrics and Gynecology Referral ID Status Reason Start Date Expiration Date Visits Requ ested Visits Authorized [id number] Closed 12/20/2019 12/19/2020 1 1 Encounter Details Date Type Department Care Team Description 12/20/2019 Office Visit Department of Jhonny Enriquez, Candidiasis Vulva Vagina (Primary Dx); Obstetrics and M.D. Acute Vaginit is Gynecology in [place], [place] [address] [place] [id number] Social History Tobacco Use Types Packs/Day Years [...] or relatives? How often do you attend alevism or Never 2021 hinduism services? Do you belong to any clubs or No 01/25/2022 organizations such as alevism groups, unions, fraternal or athletic groups, or [...] Sign Reading Time Taken Comments Blood Pressure 108/64 12/20/2019 2:30 PM FOOD SERVICE UTILITY WORKER Pulse 78 12/20/2019 2:30 PM FOOD SERVICE UTILITY WORKER Temperature - - Respiratory Rate 16 12/20/2019 2:30 PM FOOD SERVICE UTILITY WORKER Oxygen Saturation - - Inhaled Oxygen Concentration - - Weight 79.3 kg (174 lb 13.2 oz) 12/20/2019 2:30 PM FOOD SERVICE UTILITY WORKER Height - - Body Mass Index 33.88 09/01/2019 11:03 AM CDT documented in this encounter Progress Notes Jhonny Enriquez M.D. - 12/20/2019 2:30 PM CST CHIEF COMPLAINT / REASON FOR VISIT Vaginal itching, burning and discharge HISTORY OF PRESENT ILLNESS Keily Ng is a 34 y.o. with Patient's last menstrual period was 11/20/2019. who complaints of vaginal itching, burning and discharge for the last 3 days. She was recently traveling from [place]. She complains of itching in in burning with a thin white vaginal discharge. No vaginal odor. No difficulty urinating, dysuria, hematuria, or flank pain. No diarrhea, constipation, or change in bowel habits. No fever or chills. No nausea or vomiting. She denies vaginal bleeding. The patient took a Diflucan 150 mg tablet about 4 hours ago for her symptoms. She is still nursing her infant. ALLERGIES Allergies Allergen Reactions ??? Bupropion Hcl Anxiety flush, anger MEDICATIONS Current Outpatient Medications: ??? breast pump (PUMP [...] needed for constipation., Disp: , Rfl: ??? clotrimazole (Gyne-Lotrimin 7) 1 % vaginal cream, Insert into the vagina at bedtime for 7 days.,Disp: 45 g, Rfl: 2 ??? ibuprofen (ADVIL,MOTRIN) 600 mg tablet, TAKE [...] , Rfl: REVIEW OF SYSTEMS As per HPI otherwise negative. PROBLEM LIST: Patient Active Problem List Diagnosis ??? Headache Tension Chronic ??? Cervical Dysplasia Personal History ??? Fibromyalgia ??? Subacute And Chronic Vaginitis ??? Anemia Iron Deficiency ??? Chronic Tension Type Headache Not Intractable ??? Prolapse Uterine ??? Cystocele Midline OBJECTIVE BP 108/64 (BP Location: Right arm, Patient Position: Sitting, Cuff Size: Large) Pulse 78 Resp 16 Wt 79.3 kg LMP 11/20/2019 Yes BMI 33.88 kg/m?? General: Well-developed, well-nourished female in no apparent distress. Mental: Alert and oriented times three. Abdomen: Soft, nontender, nondistended, positive bowel sounds. No organomegaly. No rebound, no guarding. Pelvic exam: External female genitalia is normal. Normal Bartholin, Urethral and [place]'s glands. Vaginal mucosa is pink with a small amount of physiologic discharge without odor. No vaginal lesions. Well estrogenized vaginal mucosa. Normal multiparous cervix without lesions or abnormalities. No cervical motion tenderness to palpation. The bladder and urethra are nontender to palpation. Bimanual exam deferred. Extremities: No clubbing cyanosis or edema. Nontender bilaterally. Vascular Neurologist: Fanny Gracia LPN DIAGNOSTICS Vaginitis panel: Positive candidiasis, negative Gardnerella, negative Trichomonas ASSESSMENT / PLAN Keily Ng is a 34 y.o. female who complaints of vaginal itching, burning and discharge. 1 Vulvovaginal candidiasis - Treatment: OTC yeast cream such as Monistat or Gyne-Lotrimin and abstain from coitus during courseof treatment - Perineal hygiene recommendations are reviewed with the patient. - I reviewed bathing recommendations with the patient. - I discussed use of kaek-klm-bnucery Vagisil. - I recommend the patient wear cotton underwear. - Return to clinic as needed if symptoms persist or worsen. - Problem list reviewed and updated. - 20 minute visit with greater than 50% spent in counseling. Jhonny Enriquez MD Braid Folder - Obstetrics and Gynecology [facility] SERVICE UTILITY WORKER documented in this encounter Plan of Treatment Upcoming Encounters Date Type Specialty Care Team Description 08/30/2022 Clinical Communication Admitting/Central Scheduling 09/02/2022 Comprehensive Visit Endocrinology Ricardo Winkler APRN, C.N.P., D.N.P. [address] [place] [address] documented as of this encounter Procedures Procedure Name Priority Date/Time Associated Diagnosis Comme nts VAGINITIS PANEL Routine 12/20/2019 2:45 PM Acute Vaginitis Res ults for this FOOD SERVICE UTILITY WORKER procedure are i n the results section. documented in this encounter Results (ABNORMAL) Vaginitis Panel (12/20/2019 2:45 PM FOOD SERVICE UTILITY WORKER) [facility] Method Time Signature Francia Positive (A) Negative 12/20/2019 FB60 species, DNA 4:40 PM FOOD SERVICE UTILITY WORKER Gardnerella Negative Negative 12/20/2019 FB60 vaginalis, DNA 4:40 PM FOOD SERVICE UTILITY WORKER Trichomonas Negative Negative 12/20/2019 FB60 vaginalis, DNA 4:40 PM FOOD SERVICE UTILITY WORKER Specimen Anatomical Collection Method Collection Time Receive d Time (Source) Location / / Volume Laterality Swab (Vagina) 12/20/2019 2:45 PM 12/20/19 20 3:33 FOOD SERVICE UTILITY WORKER PM FOOD SERVICE UTILITY WORKER Jhonny Enriquez M.D. LAB MICROBIOLOGY - GENERAL O RDERABLES Performing Organization Address City/State/ZIP Code Phon e Number [address] [place] [address] [facility] [place] [address] [address] documented in this encounter Visit Diagnoses Diagnosis Candidiasis Vulva Vagina - Primary Acute Vaginitis documented in this encounter Additional Health Concerns Assessment Noted Time PHQ-9 Depression Total Score: 13 12/04/2017 10:[address] documented as of this encounter Care Teams Potato Chip Cooker Machine Relationship Specialty Start Date End Date Yarelis Reyes M.D. PCP - General 05/08/17 01/03/21 [address] [place] [phone] documented as of this encounter
--- OUTSIDE RECORDS SUMMARY | 2022-08-16 21:28 | XMS_ITS | Encounter Summary ---
:1985 Author Organization [facility] Address [address] [place] [address] Care Team Providers Name Role Phone Yarelis Reyes M.D. Primary Care Provider [phone] Encounter Details Date Type Department Care Team Description 05/26/2019 Clinical Communication Department of Fanny Gracia Obstetrics and E, L.PAmarisNAmaris Gynecology in [address] [place], [place] [address] [facility] [address] [place], [place] [phone] [address] (Work) [phone] Social History Tobacco Use Types Packs/Day Years [...] or relatives? How often do you attend lutheran or Never 2021 adventist services? Do you belong to any clubs or No 01/25/2022 organizations such as lutheran groups, unions, fraternal or athletic groups, or [...] this encounter Miscellaneous Notes Telephone Encounter - Kenya Cruz - 05/28/2019 4:04 PM CDT PA for laparoscopic bilateral salpingectomy with Mina at [facility] on 06/17/19 has been sent. Telephone Encounter - Twyla Brito R.N. - 05/28/2019 9:21 AM CDT ICD-10: Z30.2 sterilization CPT:27520 laparoscopic bilateral salpingectomy Telephone Encounter - Kenya Cruz - 05/28/2019 9:18 AM CDT There is no diagnosis or procedure listed on this order? Telephone Encounter - Fanny Gracia L.P.N. - 05/26/2019 2:35 PM CDT [facility] Surgery Clinic Checklist Patient Contact Number: [phone] Surgeon: Mina Surgical Service: (_) Orthopedics (_) General surgery (_) Ophthalmology (_) Podiatry (_) ENT (_) Urology (X) OB / Gynecology (_) Other Date of Surgery: [id number] of Surgery: SHUBHAM Procedure (as written on Consent): Right, Left, Bilateral, N/A: Bilateral Diagnosis (reason for surgery): ICD-10: Z30.2 CPT:23655 Case Type: (x_) Outpatient (_) AM Admit (_) Inpatient (_) One day surgery Pre-op MD: Delaney Post-Op Appt:(time frame when to return): 2 weeks Surgery Brochure Given: (X) Yes (_) No (_) Mailed to Patient documented in this encounter Plan of Treatment Upcoming Encounters Date Type Specialty Care Team Description 08/30/2022 Clinical Communication Admitting/Central Scheduling 09/02/2022 Comprehensive Visit Endocrinology Ricardo Winkler APRN, C.N.P., D.N.P. [address] [place] [address] documented as of this encounter Visit Diagnoses Not on filedocumented in this encounter Additional Health Concerns Assessment Noted Time PHQ-9 Depression Total Score: 13 12/04/2017 10:[address] documented as of this encounter Care Teams Loan Service Officer Relationship Specialty Start Date End Date Yarelis Reyes M.D. PCP - General 05/08/17 01/03/21 [address] [place] [phone] documented as of this encounter
--- OUTSIDE RECORDS SUMMARY | 2022-08-16 21:28 | XMS_ITS | Encounter Summary ---
:1985 Author Organization [facility] Address [address] [place] [address] Care Team Providers Name Role Phone Yarelis Reyes M.D. Primary Care Provider [phone] Encounter Details Date Type Department Care Team Description 03/08/2019 Clinical Communication Department of Jhonny Enriquez, Obstetrics and Efren Gynecology in [place], [place] [address] [address] [facility] [phone] Social History Tobacco Use Types Packs/Day Years [...] or relatives? How often do you attend yarsanism or Never 2021 mormonism services? Do you belong to any clubs or No 01/25/2022 organizations such as yarsanism groups, unions, fraternal or athletic groups, or [...] or slept in a snf (including now)? Sex Assigned at Date Recorded Female 06/02/2018 2:38 PM CDT documented as of this encounter Miscellaneous Notes Telephone Encounter - Jhonny Enriquez M.D. - 03/08/2019 9:38 AM CDT Thank you. Jhonny Enriquez M.D. Telephone Encounter - Natalya Singh R.N. - 03/08/2019 8:25 AM CDT FYI: Keily delivered 02/28/19 vaginally. She states that things have been going ok until 2 days ago. She is feeling increased pressure in vaginal area, like something is there blocking She does not feel anything protruding. She denies increased pain or vaginal bleeding. She is requesting to have this looked at as it is causing her to have increased anxiety. She has been schedule for this morning. Telephone Encounter - Ayah Morfin - 03/08/2019 8:11 AM CDT Reason for Communication: Patient calling, delivered last week, believes she may have a uterine prolapse. Current Can Nursing/Provider leave a detailed message: yes Did the patient refuse triage through Nurse line? (for symptom based concerns): Action Needed: Name of Medication (if relevant): documented in this encounter Plan of Treatment Upcoming Encounters Date Type Specialty Care Team Description 08/30/2022 Clinical Communication Admitting/Central Scheduling 09/02/2022 Comprehensive Visit Endocrinology Ricardo Winkler, SILVIO, C.N.P., D.N.P. [address] [place] [address] documented as of this encounter Visit Diagnoses Not on filedocumented in this encounter Additional Health Concerns Assessment Noted Time PHQ-9 Depression Total Score: 13 12/04/2017 10:[address] documented as of this encounter Care Teams Grain Operator Relationship Specialty Start Date End Date Yarelis Reyes M.D. PCP - General 05/08/17 01/03/21 [address] [place] [address] documented as of this encounter
--- OUTSIDE RECORDS SUMMARY | 2022-08-16 21:28 | XMS_ITS | Encounter Summary ---
:1985 Author Organization [facility] Address [address] [place] [address] Care Team Providers Name Role Phone Yarelis Reyes M.D. Primary Care Provider [phone] Encounter Details Date Type Department Care Team Description 05/13/2019 Clinical Communication Department of Jhonny Enriquez, Obstetrics and Efren Gynecology in [place], [place] [address] [address] [facility] [phone] Social History Tobacco Use Types Packs/Day Years [...] or relatives? How often do you attend nondenominational or Never 2021 samaritan services? Do you belong to any clubs or No 01/25/2022 organizations such as nondenominational groups, unions, fraternal or athletic groups, or [...] slept in a care home (including now)? Sex Assigned at Date Recorded Female 06/02/2018 2:38 PM CDT documented as of this encounter Miscellaneous Notes Telephone Encounter - Fanny Gracia L.PAmarisN. - 05/13/2019 3:01 PM CDT Patient would like to schedule surgery. She is aware that you are out of the office until Friday. Telephone Encounter - Ninoska Rivas - 05/13/2019 2:41 PM CDT Reason for Communication: Pt called about needing to schedule surgery for sterilization Current Can Nursing/Provider leave a detailed message: na Did the patient refuse triage through Nurse line? (for symptom based concerns): na Action Needed: Please call pt and advise Name of Medication (if relevant): na documented in this encounter Plan of Treatment Upcoming Encounters Date Type Specialty Care Team Description 08/30/2022 Clinical Communication Admitting/Central Scheduling 09/02/2022 Comprehensive Visit Endocrinology Ricardo Winkler APRN, C.N.P., D.N.P. [address] [place] [address] documented as of this encounter Visit Diagnoses Not on filedocumented in this encounter Additional Health Concerns Assessment Noted Time PHQ-9 Depression Total Score: 13 12/04/2017 10:[address] documented as of this encounter Care Teams Rn Telephonic Relationship Specialty Start Date End Date Yarelis Reyes M.D. PCP - General 05/08/17 01/03/21 [address] [place] [phone] documented as of this encounter
--- OUTSIDE RECORDS SUMMARY | 2022-08-16 21:29 | XMS_ITS | Encounter Summary ---
:1985 Author Organization [facility] Address [address] [place] [address] Care Team Providers Name Role Phone Yarelis Reyes M.D. Primary Care Provider Reason for Referral Outpatient (Routine) - Closed Specialty Diagnoses / Procedures Referred By Contact Refer red To Contact Obstetrics and Diagnoses Examination Other Normal Third Trimester (HCC) Narinder Enriquez M.D. [facility] Gynecology [address] [place] [address] Referral ID Status Reason Start Date Expiration Date Visits Requ ested Visits Authorized [id number] Closed 01/18/2019 01/18/2020 1 1 R TUBE CUTTER Reason for Visit Outpatient (Routine) - Closed Specialty Diagnoses / Procedures Referred By Contact Refer red To Contact Obstetrics and Narinder Enriquez M.D. [facility] Gynecology [address] [place] [address] Referral ID Status Reason Start Date Expiration Date Visits Requ ested Visits Authorized [id number] Closed 12/30/2018 12/30/2019 1 1 Encounter Details Date Type Department Care Team Description 01/18/2019 Routine Department of Nairnder Enriquez Examinat ion Other Normal Third Trimester (Primary Dx); Obstetrics and MAmarisDAmaris Wit h Personal History Gestational Diabetes Mellitus; Gynecology in Anemia Iron De ficiency [place], [place] [address] [place] [id number] Social History Tobacco Use Types Packs/Day Years [...] or relatives? How often do you attend zoroastrianism or Never 2021 rastafarian services? Do you belong to any clubs or No 01/25/2022 organizations such as zoroastrianism groups, unions, fraternal or athletic groups, or [...] [place] [facility] (including now)? Sex Assigned at Date Recorded Female 06/02/2018 2:38 PM CDT documented as of this encounter Last Filed Vital Signs Vital Sign Reading Time Taken Comments Blood Pressure 116/78 01/18/2019 2:13 PM INNER TUBE CUTTER Pulse 74 01/18/2019 2:13 PM INNER TUBE CUTTER Temperature - - Respiratory Rate 14 01/18/2019 2:13 PM INNER TUBE CUTTER Oxygen Saturation - - Inhaled Oxygen Concentration - - Weight 73.2 kg (161 lb 7.8 oz) 01/18/2019 2:13 PM INNER TUBE CUTTER Height 153 cm (5' 0.24) 01/18/2019 2:13 PM INNER TUBE CUTTER Body Mass Index 31.29 01/18/2019 2:13 PM INNER TUBE CUTTER documented in this encounter Progress Notes Narinder Enriquez M.D. - 01/18/2019 2:45 PM CST CHIEF COMPLAINT / REASON FOR VISIT 1 Obstetrics office visit SUBJECTIVE Keily Ng is a 33 y.o. . Patient's last menstrual period was 06/09/2018. Her Estimated Date of Delivery: 03/16/19 determined by LMP consistent with 8 week ultrasound. Gestational age is 31w6d. She presents to the office today for follow up OB visit. Her is complicated by history of A1 gestational diabetes 2014, precipitous delivery 2014, delivery at 36 weeks 2009, chronic pain and??fibromyalgia, chronic vaginitis, precipitous delivery 2014, tension headache. She is doing well. She feels good movement. She denies leaking of fluid or vaginal bleeding. She denies cramping or contractions. She denies pelvic pressure. She denies difficulty urinating. She denies headache or vision changes. She denies depression symptoms. ALLERGIES Allergies Allergen Reactions ??? Bupropion Hcl Anxiety flush, anger MEDICATIONS Current Outpatient Prescriptions: ??? [...] mouth daily.,Disp: 60 tablet, Rfl: 3 ??? lidocaine (LIDODERM) 5 %, Place 1 patch on the skin daily. Apply to painful area 12 hours per day, remove for 12 hours., Disp: 30 patch, Rfl: 0 ??? vit27,calcium/iron/FA (MULTIVITAMIN/MINERAL-) tablet, Take 1 tablet by mouth daily., Disp: , Rfl: OBJECTIVE BP 116/78 Pulse 74 Resp 14 Ht 153 cm Wt 73.2 kg LMP 06/09/2018 BMI 31.29 kg/m?? General: Well-developed well-nourished gravid female in no apparent distress. Alert and oriented x3. Abdomen: Gravid soft nontender positive bowel sounds. Fundal height at 32 cm. heart tones auscultated at 148. Presentation noted to be cephalic by Ky. Cervix: deferred Extremities: No clubbing cyanosis or edema. Nontender bilaterally. DIAGNOSTICS 01/18/2019 hemoglobin 10.1, hematocrit 31.7, platelets 300 01/18/2019 Ob ultrasound: 1. Intrauterine at 31 weeks 6 day with positive cardiac activity. 2. Estimated weight 1842 g which is 37th percentile for growth. 3. Normal fluid level with maximum vertical pocket 4.5 cm. 4. Anterior placenta without placenta previa. 5. right renal pelviectasis at 8 mm. 6. No other anomalies noted. ASSESSMENT / PLAN 1 Intrauterine at 31w6d. - I reviewed OB growth ultrasound with the patient. The fetus is 1000 her 42 g which is 37th percentile for growth. Normal fluid level. There is noted to be right renal pelviectasis at 8 mm. - The patient CBC is stable with hemoglobin 10.1 hematocrit 31.7. 2 History of delivery at 36 weeks (2009) - I discussed the risk of delivery in this . - The patient declined??17-hydroxyprogesterone injections. 3 History of precipitous delivery (2014) - I discussed the risk of precipitous delivery in this with the patient. - Close observation in the??3rd trimester is??recommended. 4 History of A1 gestational diabetes - I discussed the risk of recurrent gestational diabetes in this . - Early diabetes screening is elevated at 174. - 3 hr glucose tolerance test was normal on 12/02/2018. - I recommend repeat diabetes screen. The patient declines. She had a normal 3 hr glucose tolerance test at 25 weeks and she declines to repeat diabetes testing this . 5 Chronic pain syndrome and fibromyalgia - I recommend the patient continue to see her primary provider, physical therapy, chiropractor, and??physical medicine provider for management of her chronic pain syndrome and fibromyalgia. - She reports that she is currently stable. 6 Chronic vaginitis - I discussed the risk of recurrence of chronic vaginitis in . - The patient is asymptomatic. - Perineal hygiene is reviewed the patient. - I recommend the patient wear cotton underwear. 7 History of depression and bipolar disorder - The patient is asymptomatic. - Depression precautions in are reviewed the patient. 8??Tension headaches - Pain control for headache??in is similar to when non-, except for use of NSAIDs. - I discussed the use of Tylenol, Fioricet, and Excedrin migraine. - Symptomatic relief measures are discussed including heating pad, massage, relaxation, being and a cool dark room, and sleep. 9 Right renal pelviectasis Ob ultrasound at 31 weeks on 01/18/2019 shows right renal pelviectasis at 8 mm. The fluid level is normal. No other anomalies are noted. - Mild renal pelviectasis is between 4 and 7 mm. Mild renal dilation typically resolves through the gestation and early period. - I recommend the patient see Maternal- Medicine for level 2 ultrasound, consultation and recommendation. I placed a consult for the patient to see [facility] Maternal- Medicine Department for consultation and level 2 ultrasound. They will contact the patient directly to schedule appointment. - Mild pelviectasis is a soft marker for aneuploidy. - Problem list reviewed and updated. - I reviewed routine obstetrical precautions, recommendations and instructions with the patient including movement and kick count instructions. - I reviewed labor precautions with the patient with instructions for the patient to come infor decreased movement, suspected rupture of membranes, regular contraction pattern, vaginal bleeding or any other concerning symptoms. - Follow up in 2 weeks. - 30 minute visit with greater than 50% spent in counseling. Narinder Enriquez MD Community Engagement Leader - Obstetrics and Gynecology [facility] R TUBE CUTTER documented in this encounter Plan of Treatment Upcoming Encounters Date Type Specialty Care Team Description 08/30/2022 Clinical Communication Admitting/Central Scheduling 09/02/2022 Comprehensive Visit Endocrinology Ricardo Winkler, SILVIO, C.N.P., D.N.P. [address] [place] [address] Scheduled Referrals Name Type Priority Associated Diagnoses Order S chedule Obstetrics and Outpatient Referral Routine Examination Prenata l Expected: Gynecology - Other Normal 01/18/2019 Maternal and Third (Appro ximate), medicine consult Trimester Expires: (clinic) 01/18/2022 documented as of this encounter Results (ABNORMAL) CBC without Differential (02/03/2019 12:50 PM CDT) [facility] gist Method Time Signature Hemoglobin 10.7 (L) 11.6 - 02/03/2019 [facility] 15.0 g/dL 12:58 PM CDT [facility] Hematocrit 32.5 (L) 35.5 - 02/03/2019 [facility] 44.9 % 12:58 PM CDT [facility] Erythrocytes 3.35 (L) 3.92 - 02/03/2019 [facility] 5.13 12:58 PM CDT [facility] x10(12)/L [facility] MCV 97.0 78.2 - 02/03/2019 [facility] 97.9 fL 12:58 PM CDT [facility] RBC Distrib Width 14.6 12.2 - 02/03/2019 [facility] 16.1 % 12:58 PM CDT [facility] Platelet Count 292 157 - 371 02/03/2019 [facility] x10(9)/L 12:58 PM CDT [facility] Leukocytes 10.1 (H) 3.4 - 9.6 02/03/2019 [facility] x10(9)/L 12:58 PM CDT [facility] Specimen Anatomical Collection Method Collection Time Receive d Time (Source) Location / / Volume Laterality Blood (Blood, 02/03/2019 12:50 02/03/2019 Venous) PM CDT 12:50 PM CDT Narinder Enriquez M.D. LAB BLOOD ADD-ON Performing Organization Address City/State/ZIP Code Phon e Number [facility] [address] [place] [address] LAB US OB Advanced Level [place] (01/25/2019 10:07 AM INNER TUBE CUTTER) Anatomical Region Laterality Modality Body, Ultrasound OB RST LOS, Ultrasound ARZ LOS N/A Ultrasound Specimen (Source) Anatomical Location Collection Method / Collectio n Time Received Time / Laterality Volume Narrative 01/25/2019 10:48 AM INNER TUBE CUTTER KEILY NG OB Exam, 01/25/2019 EXAM INFORMATION Patient Name: ??KEILY NG : ??1985 Age: ??33 yrs Sex: ??Female Ref Phys: ??NARINDER ENRIQUEZ Exam Date: 01/25/2019 Procedure: US OB ADVANCED LEVEL SINGLETO N Exam Site: [facility] OB #1 Plurality: 1 OBHx: [G:(7)] ?F Trm:() Pre:() C-Sec:() Ab-I:( ) Ab-S:() Ect:() Multi:() Kyung:() INDICATIONS FOR SONOGRAPHY Detailed Survey Right renal pyelectasis IMPRESSION [place] intrauterine . JOSE es tablished by LMP consistent with 8 week scan. Cephalic presentation. Imaging is limited due to advanced gestational age: unilateral (right) pyelectasis measuring 8mm in anterior-posterior dimension; lef t kidney, bladder, and amniotic fluid volume appea r normal, and no anomalies are visualized in remainder of anatomy. Composite biometry is consistent with gestational age (58%, 2187 grams). Anterior placenta without evidence of previa. MATERNAL MEASUREMENTS Left Ovary: ?? 3.44 cm x ??cm x 1.78 cm = ??cc Right Ovary: ??3.26 cm x ??cm x 1.98 cm = ??cc MEASUREMENTS ??zeynep ??wks [+/-] (R yane) % ?? BPD: 8.15 cm ?? 32w5d ??[+/-3.08] ??(7. 64 - 8.82) 39% FL: 6.36 cm ?? 32w6d ??[+/-2.96] ??(5.8 6 - 7.04) 38% HC: 30.26 cm ?? 33w4d ??[+/-2.98] ??(28 .79 - 32.71) 31% AC: 29.88 cm ?? 33w6d ??[+/-2.96] ??(26 .22 - 31.47) 78% HL: 5.65 cm ?? 33w3d ? (5.09 - 6.09) 56% TCD: 4.38 cm ?? 35w0d ??[+/-2.40] ??(3. 21 - 4.38) 96% RATIOS ??(Range) % ?? HC/AC: 1.01 ?(0.96 - 1. 12) 33% ?? FL/BPD: 0.78 ? FL/AC: 0.21 ? LONG BONES SURVEY ??cm ??wks [+/-] (Rang e) % ?? Humerus: 5.65 cm ?? 33w3d ? (5.09 - 6.09) 56% Ulna: ?? 5.05 cm ? Radius: 4.84 cm ? Femur: 6.36 cm ?? 32w6d ??[+/-2.96] ??( 5.86 - 7.04) 38% Tibia: 5.31 cm ? Fibula: 5.24 cm ? COMPUTATIONS GA: ?? 32w6d [+/-2.44] Method: Fetus ??[BPD, HC, AC, FL] JOSE: 03/16/2019 Weight: ??2187 gms. ??4 lb 13 oz. ??58% Method: BPD, HC, AC, FL OBSERVATIONS Amniotic Fluid Fluid Volume: ??Normal MVP: ??6.41 cm Placenta: Placenta is Anterior. ??There is no evidence of a placenta previa. Presentation: ?? Cephalic Size: ?? Normal for dates Growth: Within normal limits. FHR: 141 bpm Sex: Female ANATOMY Normal: spine, cerebellum, cisterna magn a, cerebral ventricle, choroid plexus, 4 chamber heart, RVOT, LVOT, 3 vessel view, aortic arch, ductal arch, diaphragm, anterior abdominal wall, abdominal cord in sertion, cord insert into placenta, 3 ve ssel cord, stomach, bladder, face, upper lip/nose, orbits, upper extremities, lower extremities, hands, feet Abnormal: kidneys COMMENTS [place] . Size equals dates b y LMP, first trimester ultrasound. The Placenta is without evidence of previa. The amniotic fluid appears normal. The adnexae appear normal. EFW 58%, 2187 grams Right renal pelvis measures 8 mm in AP d iameter. Preliminary Read by Nathaly Garcia), R.D.M.S. on 01/25/2019 10:13:35 AM. Monotype Keyboard Operator: ??Nathaly Garcia (Kris) , RKasia.M.S. Thank You For This Referral Procedure Note Manpreet Henderson M.D. - 01/25/2019Formattin g of this note might be different from the original. KEILY NG OB Exam, 01/25/2019 EXAM INFORMATION Patient Name: KEILY NG : 1985 Age: 33 yrs Sex: Female Ref Phys: NARINDER ENRIQUEZ Exam Date: 01/25/2019 Procedure: US OB ADVANCED LEVEL SINGLETO N Exam Site: [facility] OB #1 Plurality: 1 OBHx: [G:(7)] F Trm:() Pre:() C-Sec:() Ab-I:() Ab-S:( ) Ect:() Multi:() Kyung:() INDICATIONS FOR SONOGRAPHY Detailed Survey Right renal pyelectasis IMPRESSION [place] intrauterine . JOSE es tablished by LMP consistent with 8 week scan. Cephalic presentation. Imaging is limited due to advanced gestational age: unilateral (right) pyelectasis measuring 8mm in anterior-posterior dimension; left kidne y, bladder, and amniotic fluid volume appea r normal, and no anomalies are visualized in remainder of anatomy. Composite biometry is consistent with gestational age (58%, 2187 grams). Anterior placenta without evidence of previa. MATERNAL MEASUREMENTS Left Ovary: 3.44 cm x cm x 1.78 cm = cc Right Ovary: 3.26 cm x cm x 1.98 cm = c c MEASUREMENTS zeynep wks [+/-] (Range ) % BPD:8.15 cm 32w5d [+/-3.08] (7.64 - 8.8 2) 39% FL: 6.36 cm 32w6d [+/-2.96] (5.86 - 7.0 4) 38% HC: 30.26 cm 33w4d [+/-2.98] (28.79 - 3 2.71) 31% AC: 29.88 cm 33w6d [+/-2.96] (26.22 - 3 1.47) 78% HL: 5.65 cm 33w3d (5.09 - 6.09) 56% TCD:4.38 cm 35w0d [+/-2.40] (3.21 - 4.3 8) 96% RATIOS (Range) % HC/AC:1.01 (0.96 - 1.12) 33% FL/BPD:0.78 FL/AC:0.21 LONG BONES SURVEY cm wks [+/-] (Range) % Humerus:5.65 cm 33w3d (5.09 - 6.09) 56% Ulna: 5.05 cm Radius:4.84 cm Femur:6.36 cm 32w6d [+/-2.96] (5.86 - 7 .04) 38% Tibia:5.31 cm Fibula:5.24 cm COMPUTATIONS GA: 32w6d [+/-2.44] Method: Fetus [BPD, HC, AC, FL] JOSE: 03/16/2019 Weight: 2187 gms. 4 lb 13 oz. 58% Method: BPD, HC, AC, FL OBSERVATIONS Amniotic Fluid Fluid Volume: Normal MVP: 6.41 cm Placenta: Placenta is Anterior. There is no evidence of a placenta previa. Presentation: Cephalic Size: Normal for dates Growth: Within normal limits. FHR: 141 bpm Sex: Female ANATOMY Normal: spine, cerebellum, cisterna magn a, cerebral ventricle, choroid plexus, 4 chamber heart, RVOT, LVOT, 3 vessel view, aortic arch, ductal arch, diaphragm, anterior abdominal wall, abdominal cord insertion, cord insert into placenta, 3 vessel cord, stomach, bladder, face, upper lip/nose, orbits, upper extremities, lower extremities, hands, feet Abnormal: kidneys COMMENTS [place] . Size equals dates b y LMP, first trimester ultrasound. The Placenta is without evidence of previa. The amniotic fluid appears normal. The adnexae appear normal. EFW 58%, 2187 grams Right renal pelvis measures 8 mm in AP d iameter. Preliminary Read by Nathaly Garcia ( Kris), R.Roger.M.S. on 01/25/2019 10:13:35 AM. Monotype Keyboard Operator: Nathaly Garcia R.D. (Kris)M.S. Thank You For This Referral Narinder Enriquez M.D. IMG OB US PROCEDURES documented in this encounter Visit Diagnoses Diagnosis Examination Other Normal Pregna ncy Third Trimester (HCC) - Primary With Personal History Gestatio nal Diabetes Mellitus (HCC) Anemia Iron Deficiency Examination Other Normal Pregna ncy Third Trimester (HCC) documented in this encounter Additional Health Concerns Assessment Noted Time PHQ-9 Depression Total Score: 13 12/04/2017 10:[address] documented as of this encounter Care Teams Multiple Sclerosis Nurse Relationship Specialty Start Date End Date Yarelis Reyes M.D. PCP - General 05/08/17 01/03/21 [address] [place] [address] documented as of this encounter
--- OUTSIDE RECORDS SUMMARY | 2022-08-16 21:29 | XMS_ITS | Encounter Summary ---
:1985 Author Organization [facility] Address [address] [place] [address] Care Team Providers Name Role Phone Yarelis Reyes M.D. Primary Care Provider Reason for Visit Reason Comments Routine Visit 37 1/7 weeks Outpatient (Routine) - Closed Specialty Diagnoses / Procedures Referred By Contact Refer red To Contact Obstetrics and Jhonny Enriquez M.D. [facility] Gynecology [address] [place] [address] Referral ID Status Reason Start Date Expiration Date Visits Requ ested Visits Authorized [id number] Closed 02/03/2019 02/03/2020 1 1 Encounter Details Date Type Department Care Team Description 02/24/2019 Routine Department of Jhonny Enriquez Examinat ion Other Normal Third Trimester (Primary Dx); Obstetrics and M.D. Wit h Personal History Gestational Diabetes Mellitus; Gynecology [place] [address] [place] [id number] Social History Tobacco Use Types Packs/Day Years [...] or relatives? How often do you attend christian or Never 2021 congregation services? Do you belong to any clubs or No 01/25/2022 organizations such as christian groups, unions, fraternal or athletic groups, or [...] for the very basics like Not h oksnaa at all 01/25/2022 food, housing, medical care, [...] or slept in a correction (including now)? Sex Assigned at Date Recorded Female 06/02/2018 2:38 PM CDT documented as of this encounter Last Filed Vital Signs Vital Sign Reading Time Taken Comments Blood Pressure 100/60 02/24/2019 2:05 PM CDT Pulse 72 02/24/2019 2:05 PM CDT Temperature - - Respiratory Rate 16 02/24/2019 2:05 PM CDT Oxygen Saturation - - Inhaled Oxygen Concentration - - Weight 75.9 kg (167 lb 5.3 oz) 02/24/2019 2:05 PM CDT Height 153 cm (5' 0.24) 02/24/2019 2:05 PM CDT Body Mass Index 32.42 02/24/2019 2:05 PM CDT documented in this encounter Progress Notes Jhonny Enriquez M.D. - 02/24/2019 2:15 PM CDT CHIEF COMPLAINT / REASON FOR VISIT 1 Obstetrics office visit SUBJECTIVE Keily Ng is a 33 y.o. . Patient's last menstrual period was 06/09/2018. Her Estimated Date of Delivery: 03/16/19 determined by LMP consistent with 8 week ultrasound. Gestational age is 37w1d. She presents to the office today for follow up OB visit. Her is complicated by history of A1 gestational diabetes 2014, precipitous delivery 2014, delivery at 36 weeks 2009, chronic pain and??fibromyalgia, chronic vaginitis, precipitous delivery 2014, tension headache, right renal pyelectasis 8 mm. She continues to have irregular contractions that are worse at the end of the day and resolve with rest. She denies leaking fluid or vaginal bleeding. She feels good movement. She denies difficulty urinating. She denies headache [...] mouth daily. (Patient not taking: Reported on 02/03/2019 ), Disp: 60 tablet, Rfl: 3 ??? lidocaine (LIDODERM) 5 %, Place 1 patch on the skin daily. Apply to painful area 12 hours per day, remove for 12 hours. (Patient not taking: Reported on 02/23/2019 ), Disp: 30 patch, Rfl: 0 ??? vit27,calcium/iron/FA (MULTIVITAMIN/MINERAL-) tablet, Take 1 tablet by mouth daily., Disp: , Rfl: ??? vitamin-iron fumarate-FA 28 mg iron- 800 mcg per tablet, Take 1 tablet by mouth., Disp:, Rfl: OBJECTIVE BP 100/60 Pulse 72 Resp 16 Ht 153 cm Wt 75.9 kg LMP 06/09/2018 BMI 32.42 kg/m?? General: Well-developed well-nourished gravid female in no apparent distress. Alert and oriented x3. Abdomen: Gravid soft nontender positive bowel sounds. Fundal height at 37 cm. heart tones auscultated at 122. Presentation noted to be vertex by Ky. Cervix: 3 cm dilated / 80 % / 0 station, medium cervix consistency, middle cervix position, vertex presentation, Rodriguez score 9 Extremities: No clubbing cyanosis or edema. Nontender bilaterally. Emergency Medicine Physician Assistant for pelvic exam or qualifying procedure: Yulisa Wahl L.P.N. DIAGNOSTICS 02/17/2019 GBS culture: Negative ASSESSMENT / PLAN 1 Intrauterine at 37w1d. - The patient GBS culture is negative. - Her cervix is 3 cm dilated, 80%, 0 station. No change from prior examination. 2 History of delivery at 36 weeks (2009) - The patient declined??17-hydroxyprogesterone injections. 3 History [...] tolerance test was normal on 12/02/2018. - The patient had a normal 3 hr glucose tolerance [...] dark room, and sleep. 9 Right renal pyelectasis - Ob ultrasound at 31 wk and 33 wk shows right renal pelviectasis at 8 mm. ??The fluid level is normal. No other ??anomalies are noted. - Mild renal pelviectasis is between 4 and 7 mm.?Mild renal dilation typically resolves through the gestation and early period. - The patient saw??Maternal- Medicine and had a normal level 2 survey other than the right renal pelviectasis at 8 mm. She had normal cell free DNA testing. - Maternal- Medicine recommends renal scan after delivery. - Problem list reviewed and updated. - I reviewed routine obstetrical precautions, recommendations and instructions with the patient including movement and kick count instructions. - I reviewed labor precautions with the patient with instructions for the patient to come in for decreased movement, suspected rupture of membranes, regular contraction pattern, vaginal bleeding or any other concerning symptoms. - Follow up in 1 weeks. Jhonny Enriquez MD Clerical And Office Support Workers - Obstetrics and Gynecology [facility] documented in this encounter Plan of Treatment Upcoming Encounters Date Type Specialty Care Team Description 08/30/2022 Clinical Communication Admitting/Central Scheduling 09/02/2022 Comprehensive Visit Endocrinology Ricadro Winkler, SILVIO, C.N.P., D.N.P. [address] [place] [address] documented as of this encounter Visit Diagnoses Diagnosis Examination Other Normal Pregna ncy Third Trimester (HCC) - Primary With Personal History Gestatio nal Diabetes Mellitus (HCC) Anemia Iron Deficiency documented in this encounter Additional Health Concerns Assessment Noted Time PHQ-9 Depression Total Score: 13 12/04/2017 10:[address] documented as of this encounter Care Teams News Content Specialist Relationship Specialty Start Date End Date Yarelis Reyes M.D. PCP - General 05/08/17 01/03/21 [address] [place] [address] documented as of this encounter
--- OUTSIDE RECORDS SUMMARY | 2022-08-16 21:29 | XMS_ITS | Encounter Summary ---
:1985 Author Organization [facility] Address [address] [place] [address] Care Team Providers Name Role Phone Yarelis Reyes M.D. Primary Care Provider [phone] Encounter Details Date Type Department Care Team Description 01/13/2019 Ancillary Procedure Department of Physical Medicine and Rehab Social History Tobacco Use Types Packs/Day Years [...] do you attend christian or Never 2021 muslim services? Do you [...] or slept in a penitentiary (including now)? Sex Assigned at Date Recorded Female 06/02/2018 2:38 PM CDT documented as of this encounter Plan of Treatment Upcoming Encounters Date Type Specialty Care Team Description 08/30/2022 Clinical Communication Admitting/Central Scheduling 09/02/2022 Comprehensive Visit Endocrinology Ricardo Winkler, SILVIO, C.N.P., D.N.P. [address] [place] [address] documented as of this encounter Procedures Procedure Name Priority Date/Time Associated Diagnosis Comme nts PHYSICAL MEDICINE Routine 01/13/2019 1:45 PM Resu lts for this AND REHAB IMAGE CODIFIER procedure ar e in EXAM the results section. documented in this encounter Results Non-Radiology Image-Physical Medicine And Rehab Image Exam (01/13/2019 1:45 PM CODIFIER) Specimen (Source) Anatomical Collection Method Collection Time Re ceived Time Location / / Volume Laterality 01/13/2019 1:43 PM CODIFIER Narrative [facility] - 01/13/2019 2:03 PM CODIFIER This order has been created and auto-finalized to support the import of images acquired without order. The clini faviola documentation to support these images can be found on the encounter kenya t produced images. Provider Not In System IMG NON RAD IMAGING PROCEDUR ES Performing Organization Address City/State/ZIP Code Phon e Number [facility] NA documented in this encounter Visit Diagnoses Not on filedocumented in this encounter Additional Health Concerns Assessment Noted Time PHQ-9 Depression Total Score: 13 12/04/2017 10:[address] documented as of this encounter Care Teams Field Agent Relationship Specialty Start Date End Date Yarelis Reyes M.D. PCP - General 05/08/17 01/03/21 [address] [place] [address] documented as of this encounter
--- OUTSIDE RECORDS SUMMARY | 2022-08-16 21:29 | XMS_ITS | Encounter Summary ---
:1985 Author Organization [facility] Address [address] [place] [address] Care Team Providers Name Role Phone Yarelis Reyes M.D. Primary Care Provider Reason for Visit Reason Onset Date Comments being sent to [facility] 01/20/2019 Encounter Details Date Type Department Care Team Description 01/20/2019 Clinical Communication Department of Eric musa [facility] [place], [address] [place] [phone] Social History Tobacco Use Types Packs/Day Years [...] or relatives? How often do you attend worship or Never 2021 roman catholic services? Do you belong to any clubs or No 01/25/2022 organizations such as worship groups, unions, fraternal or athletic groups, or [...] slept in a long term (including now)? Sex Assigned at Date Recorded Female 06/02/2018 2:38 PM CDT documented as of this encounter Miscellaneous Notes Telephone Encounter - Lucinda Pulido L.PAmarisNAmaris - 01/21/2019 12:25 PM INSIDE SALES ASSISTANT SUBJECTIVE CHIEF COMPLAINT / REASON FOR CALL being sent to [facility] Patient is requesting the following information: Records for her daughter Karyn. Informed her that she needs to sign RACHELE. Also informed her that [facility] should have all of records there. Stated her son also failed all of his pre-school screening and has forms that need to be completed. She will bring up forms and then sign the RACHELE. PLAN The following information was provided : See above Information: patient/caller able to repeat back in their own words The following references were used: provider Yarelis Baltazar DE SALES ASSISTANT Telephone Encounter - Yarelis Reyes M.D. - 01/20/2019 5:07 PM INSIDE SALES ASSISTANT Please find out how I can help her obtain information DE SALES ASSISTANT Telephone Encounter - Heidy Patterson L.PAmarisN. - 01/20/2019 12:20 PM INSIDE SALES ASSISTANT Please advise on response to patient DE SALES ASSISTANT Telephone Encounter - Maddie Minaya - 01/20/2019 12:12 PM CST Reason for Communication: patient called. She is 32 weeks and is being sent to [facility] for fetus renal cyst. She is wanting Dr Baltazar to be aware of this. She is also wanting to talk about getting information about her child that had kidney reflux as a baby when she was 3 months old - she is thinking it might be related to what is going on with her now. Current Can Nursing/Provider leave a detailed message: YES Did the patient refuse triage through Nurse line? (for symptom based concerns) Action Needed: wants call back Name of Medication (if relevant): DE SALES ASSISTANT documented in this encounter Plan of Treatment Upcoming Encounters Date Type Specialty Care Team Description 08/30/2022 Clinical Communication Admitting/Central Scheduling 09/02/2022 Comprehensive Visit Endocrinology Ricardo Winkler APRN, C.N.P., D.N.P. [address] [place] [address] documented as of this encounter Visit Diagnoses Not on filedocumented in this encounter Additional Health Concerns Assessment Noted Time PHQ-9 Depression Total Score: 13 12/04/2017 10:[address] documented as of this encounter Care Teams Pool Installer Relationship Specialty Start Date End Date Yarelis Reyes M.D. PCP - General 05/08/17 01/03/21 [address] [place] [address] documented as of this encounter
--- OUTSIDE RECORDS SUMMARY | 2022-08-16 21:29 | XMS_ITS | Encounter Summary ---
:1985 Author Organization [facility] Address [address] [place] [address] Care Team Providers Name Role Phone Yarelis Reyes M.D. Primary Care Provider [phone] Encounter Details Date Type Department Care Team Description 12/25/2018 Clinical Communication Department of Jhonny Enriquez, Obstetrics and Efren Gynecology in [place], [place] [address] [place] [address] Social History Tobacco Use Types [...] do you attend mormon or Never 2021 catholic services? Do you [...] slept in a group home (including now)? Sex Assigned at Date Recorded Female 06/02/2018 2:38 PM CDT documented as of this encounter Miscellaneous Notes Telephone Encounter - Jhonny Enriquez M.D. - 12/25/2018 3:39 PM CST Agree Jhonny Enriquez M.D. EXPELLER OPERATOR Telephone Encounter - Lori Stauffer R.N. - 12/25/2018 3:11 PM CST Keily Ng is a [address] Enriquez. She is 28w3d today, and a . Patient's last menstrual period was 06/09/2018. Her Blood type is O Positive. Next OB appt is 12/31/18. She calls in to clinic today with concerns of RUQ pain that started last night. She describes this as a sharp pain that is constant. She stated she has been standing all day today and very tired. Denies any PAGAN or vision changes. States movement is present and active. She was advised to rest, take OTC Tylenol and apply heating pad to area but patient declines and requests an appointment today. She has been scheduled at 3:30pm for evaluation. EXPELLER OPERATOR Telephone Encounter - Isabel Barajas - 12/25/2018 2:49 PM CST Patient is having pain under her rib cage and wondering if she could come in and see Dr. Enriquez this afternoon. Please call her back at [phone] to advise. EXPELLER OPERATOR documented in this encounter Plan of Treatment Upcoming Encounters Date Type Specialty Care Team Description 08/30/2022 Clinical Communication Admitting/Central Scheduling 09/02/2022 Comprehensive Visit Endocrinology Ricardo Winkler, SILVIO, C.N.P., D.N.P. [address] [place] [address] documented as of this encounter Visit Diagnoses Not on filedocumented in this encounter Additional Health Concerns Assessment Noted Time PHQ-9 Depression Total Score: 13 12/04/2017 10:23 AM C documented as of this encounter Care Teams Technology Coach Relationship Specialty Start Date End Date Yarelis Reyes M.D. PCP - General 05/08/17 01/03/21 [address] [place] [phone] documented as of this encounter
--- OUTSIDE RECORDS SUMMARY | 2022-08-16 21:29 | XMS_ITS | Encounter Summary ---
:1985 Author Organization [facility] Address [address] [place] [address] Care Team Providers Name Role Phone Yarelis Reyes M.D. Primary Care Provider [phone] Encounter Details Date Type Department Care Team Description 01/18/2019 Hospital Encounter Department of Jhonny Enriquez Examin ation Other Normal Third Trimester; Laboratory Medicine M.DAmaris Anemia I viviana Deficiency in [place], [place] [address] [facility] [phone] Social History Tobacco Use Types Packs/Day Years [...] do you attend faith or Never 2021 mormonism services? Do you [...] PM CDT documented as of this encounter Medications at Time of Discharge Medication Sig Dispensed Refills Start Date End Date acetaminophen (TYLENOL) Take by mouth every 0 500 mg capsule 6 (six) hours as needed for pain. albuterol (ACCUNEB) 2.5 mg Inhale 2.5 mg. 0 07/2704/07/2019 /3 mL nebulizer solution bisacodyl (DULCOLAX) 5 mg Take 10 mg by mouth 0 04/16/2022 EC tablet daily as needed for constipation. ferrous sulfate 325 mg (65 Take 1 tablet (65 60 tablet 3 06/23/2019 mg iron) tablet mg of iron total) by mouth daily. lidocaine (LIDODERM) 5 % Place 1 patch on 30 patch 0 10/0904/07/2019 the skin daily. Apply to painful area 12 hours per day, remove for 12 hours. Take 1 tablet by 0 03/08/20 19 vit27,calcium/iron/FA mouth daily. (MULTIVITAMIN/MINERAL-PREN ATAL) tablet documented as of this encounter Plan of Treatment Upcoming Encounters Date Type Specialty Care Team Description 08/30/2022 Clinical Communication Admitting/Central Scheduling 09/02/2022 Comprehensive Visit Endocrinology Ricardo Winkler, SILVIO, C.N.P., D.N.P. [address] [place] [address] documented as of this encounter Procedures Procedure Name Priority Date/Time Associated Diagnosis Comme nts CBC WITHOUT Routine 01/18/2019 2:04 PM Examination R esults for this DIFFERENTIAL, B CLERICAL ADVISER Other Normal procedure ar e in Third the results Trimester section. Anemia Iron Deficiency documented in this encounter Results (ABNORMAL) CBC without Differential (01/18/2019 2:04 PM CLERICAL ADVISER) [facility] Method Time Signature Hemoglobin 10.1 (L) 11.6 - 01/18/2019 [facility] 15.0 g/dL 2:08 PM [facility] Hematocrit 31.7 (L) 35.5 - 01/18/2019 [facility] 44.9 % 2:08 PM [facility] Erythrocytes 3.23 (L) 3.92 - 01/18/2019 [facility] 5.13 2:08 PM [facility] x10(12)/L [facility] MCV 98.1 (H) 78.2 - 01/18/2019 [facility] 97.9 fL 2:08 PM [facility] RBC Distrib Width 14.5 12.2 - 01/18/2019 [facility] 16.1 % 2:08 PM [facility] Platelet Count 300 157 - 371 01/18/2019 [facility] x10(9)/L 2:08 PM [facility] Leukocytes 16.0 (H) 3.4 - 9.6 01/18/2019 [facility] x10(9)/L 2:08 PM [facility] Specimen Anatomical Collection Method Collection Time Receive d Time (Source) Location / / Volume Laterality Blood (Blood, 01/18/2019 2:04 PM 01/18/20 19 2:05 Venous) CLERICAL ADVISER PM CLERICAL ADVISER Jhonny Enriquez M.D. LAB BLOOD ADD-ON Performing Organization Address City/State/ZIP Code Phon e Number [facility] [address] [place] [address] LAB documented in this encounter Visit Diagnoses Diagnosis Examination Other Normal Pregna ncy Third Trimester (HCC) Anemia Iron Deficiency documented in this encounter Additional Health Concerns Assessment Noted Time PHQ-9 Depression Total Score: 13 12/04/2017 10:[address] documented as of this encounter Care Teams Barrel Reamer Relationship Specialty Start Date End Date Yarelis Reyes M.D. PCP - General 05/08/17 01/03/[address] [address] documented as of this encounter
--- OUTSIDE RECORDS SUMMARY | 2022-08-16 21:29 | XMS_ITS | Encounter Summary ---
:1985 Author Organization [facility] Address [address] [place] [address] Care Team Providers Name Role Phone Yarelis Reyes M.D. Primary Care Provider [phone] Reason for Visit Reason Comments Med Refill Encounter Details Date Type Department Care Team Description 03/01/2019 Refill Department of Obstetrics and Jhonny Enriquez M.D. Med Refill Gynecology in [place], [place] [address] [place] [address] Social History Tobacco Use Types Packs/Day Years [...] do you attend gnosticist or Never 2021 buddhism services? Do you [...] this encounter Miscellaneous Notes Telephone Encounter - Lori Stauffer R.N. - 03/01/2019 9:22 AM CDT Patient notified. Telephone Encounter - Jhonny Enriquez M.D. - 03/01/2019 9:15 AM CDT Prescription sent to the pharmacy. Please inform patient. Jhonny Enriquez M.D. Telephone Encounter - Lori Stauffer R.N. - 03/01/2019 9:10 AM CDT Message from patient: I'm currently on amoxicillin, just figured i would be preemptive. Can you please refill? Thank you! Telephone Encounter - Lori Stauffer R.N. - 03/01/2019 8:00 AM CDT Patient on-line message has been sent asking for an update of her symptoms and to see if she needs this refill. Telephone Encounter - Zora Hammer - 03/01/2019 7:03 AM CDT Nurse review: Unable to pend medication; Med not listed on active med list. Primary Provider: Yarelis Reyes M.D. Name of medication: Fluconazole 150 mg Tabs Strength: Frequency: Take one tablet by mouth once for one dose Quantity: 1 Refills: Last Refill: 02/20/19 Pharmacy: [facility] [place] documented in this encounter Plan of Treatment Upcoming Encounters Date Type Specialty Care Team Description 08/30/2022 Clinical Communication Admitting/Central Scheduling 09/02/2022 Comprehensive Visit Endocrinology Ricardo Winkler APRN, C.N.P., D.N.P. [address] [place] [address] documented as of this encounter Visit Diagnoses Not on filedocumented in this encounter Additional Health Concerns Assessment Noted Time PHQ-9 Depression Total Score: 13 12/04/2017 10:[address] documented as of this encounter Care Teams Armature Bander Relationship Specialty Start Date End Date Yarelis Reyes M.D. PCP - General 05/08/17 01/03/21 [address] [place] [phone] documented as of this encounter
--- OUTSIDE RECORDS SUMMARY | 2022-08-16 21:29 | XMS_ITS | Encounter Summary ---
:1985 Author Organization [facility] Address [address] [place] [address] Care Team Providers Name Role Phone Yarelis Reyes M.D. Primary Care Provider [phone] Reason for Visit Reason Onset Date Comments appt change 12/08/2018 Encounter Details Date Type Department Care Team Description 12/08/2018 Clinical Communication Department of Physical Benson , appt change Medicine and Darnell Castro M.D. Rehabilitation in [address] [place], [place] [address] [address] [place] [address] [facility] [phone] Social History Tobacco Use Types Packs/Day Years [...] do you attend baptism or Never 2021 yazidism services? Do you [...] slept in a nursing home (including now)? Sex Assigned at Date Recorded Female 06/02/2018 2:38 PM CDT documented as of this encounter Miscellaneous Notes Telephone Encounter - Hillary Morgan - 12/08/2018 2:45 PM CST Spoke to pt. She was very understanding. Will address with PSR. RETE POINTER Telephone Encounter - Kenyetta Yin L.PAmarisN. - 12/08/2018 1:56 PM CST Her appointment on 12/[address] Benson being out on medical leave. RETE POINTER Telephone Encounter - Patrizia Christiansen - 12/08/2018 1:44 PM CST Patient called wondering why her appointment was changed to Jan 13 when she was never notified that her original appointment was Dec 09 at 11:30. Please advise [phone] RETE POINTER documented in this encounter Plan of Treatment Upcoming Encounters Date Type Specialty Care Team Description 08/30/2022 Clinical Communication Admitting/Central Scheduling 09/02/2022 Comprehensive Visit Endocrinology Ricardo Winkler, SILVIO, C.N.P., D.N.P. [address] [place] [address] documented as of this encounter Visit Diagnoses Not on filedocumented in this encounter Additional Health Concerns Assessment Noted Time PHQ-9 Depression Total Score: 13 12/04/2017 10:[address] documented as of this encounter Care Teams Librarian Head Relationship Specialty Start Date End Date Yarelis Reyes M.D. PCP - General 05/08/17 01/03/21 [address] [place] [address] documented as of this encounter
--- OUTSIDE RECORDS SUMMARY | 2022-08-16 21:29 | XMS_ITS | Encounter Summary ---
:1985 Author Organization [facility] Address [address] [place] [address] Care Team Providers Name Role Phone Yarelis Reyes M.D. Primary Care Provider [phone] Encounter Details Date Type Department Care Team Description 02/26/2019 Nurse Triage Department of [facility] Dilia michell Duran, R.NAmaris [facility], ([place] [address] [place] [address] Social History Tobacco Use Types Packs/Day Years [...] or relatives? How often do you attend protestant or Never 2021 latter-day services? Do you belong to any clubs or No 01/25/2022 organizations such as protestant groups, unions, fraternal or athletic groups, or [...] place to sleep or slept in a fpc (including now)? Sex Assigned at Date Recorded Female 06/02/2018 2:38 PM CDT documented as of this encounter Miscellaneous Notes Telephone Encounter - Brisa Dobbs, R.N. - 02/26/2019 12:46 PM CDT Call warm transferred to OB department as she refuses ER. No further action needed by this RN documented in this encounter Plan of Treatment Upcoming Encounters Date Type Specialty Care Team Description 08/30/2022 Clinical Communication Admitting/Central Scheduling 09/02/2022 Comprehensive Visit Endocrinology Ricardo Winkler, SILVIO, C.N.P., D.N.P. [address] [place] [address] documented as of this encounter Visit Diagnoses Not on filedocumented in this encounter Additional Health Concerns Assessment Noted Time PHQ-9 Depression Total Score: 13 12/04/2017 10:[address] documented as of this encounter Care Teams Educational Sign Language Interpreter Relationship Specialty Start Date End Date Yarelis Reyes M.D. PCP - General 05/08/17 01/03/21 [address] [place] [address] documented as of this encounter
--- OUTSIDE RECORDS SUMMARY | 2022-08-16 21:29 | XMS_ITS | Encounter Summary ---
:1985 Author Organization [facility] Address [address] [place] [address] Care Team Providers Name Role Phone Yarelis Reyes M.D. Primary Care Provider [phone] Encounter Details Date Type Department Care Team Description 02/22/2019 Clinical Communication Department of Jhonny Enriquez, Obstetrics and Efren Gynecology in [place], [place] [address] [address] [facility] [phone] Social History Tobacco Use Types Packs/Day Years [...] or relatives? How often do you attend hinduism or Never 2021 confucianist services? Do you belong to any clubs or No 01/25/2022 organizations such as hinduism groups, unions, fraternal or athletic groups, or [...] this encounter Miscellaneous Notes Telephone Encounter - Natalya Singh R.N. - 02/22/2019 8:59 AM CDT Keily states that she just wanted to make an appointment with her FP provider as she has had URI symptoms for 11 days and has tried conservative measures. Transferred to R to schedule appointment. Telephone Encounter - Sulma Butts - 02/22/2019 8:38 AM CDT Reason for Communication: Patient stating she has been experiencing sinus congestion as well as coughing up flem for the past 11 days Current Can Nursing/Provider leave a detailed message: Yes Did the patient refuse triage through Nurse line? (for symptom based concerns): No. Turf Keeper leaving message for OB nurse and advised patient that nurse will give her a call regarding this Action Needed: Please advise and contact patient Name of Medication (if relevant): N/A documented in this encounter Plan of Treatment Upcoming Encounters Date Type Specialty Care Team Description 08/30/2022 Clinical Communication Admitting/Central Scheduling 09/02/2022 Comprehensive Visit Endocrinology Ricardo Winkler APRN, C.N.P., D.N.P. [address] [place] [address] documented as of this encounter Visit Diagnoses Not on filedocumented in this encounter Additional Health Concerns Assessment Noted Time PHQ-9 Depression Total Score: 13 12/04/2017 10:[address] documented as of this encounter Care Teams Clinical Director Relationship Specialty Start Date End Date Yarelis Reyes M.D. PCP - General 05/08/17 01/03/21 [address] [place] [address] documented as of this encounter
--- OUTSIDE RECORDS SUMMARY | 2022-08-16 21:29 | XMS_ITS | Encounter Summary ---
:1985 Author Organization [facility] Address [address] [place] [address] Care Team Providers Name Role Phone Yarelis Reyes M.D. Primary Care Provider Reason for Referral Outpatient (Routine) - Closed Specialty Diagnoses / Procedures Referred By Contact Refer red To Contact Obstetrics Jhonny Fisher M.D. [facility]ne[facility] [address] [place] [address] Referral ID Status Reason Start Date Expiration Date Visits Requ ested Visits Authorized [id number] Closed 02/03/2019 02/03/2020 1 1 utpatient (Routine) - Closed Specialty Diagnoses / Procedures Referred By Contact Refer red To Contact Jhonny Sotelo M.D. [facility]ne[facility] [address] [place] [address] Referral ID Status Reason Start Date Expiration Date Visits Requ ested Visits Authorized [id number] Closed 02/03/2019 02/03/2020 1 1 Reason for Visit Reason Comments Routine Visit 34 1/7 weeks Outpatient (Routine) - Closed Specialty Diagnoses / Procedures Referred By Contact Refer red To Contact Jhonny Sotelo M.D. [facility]ne[facility] [address] [place] [address] Referral ID Status Reason Start Date Expiration Date Visits Requ ested Visits Authorized [id number] Closed 12/30/2018 12/30/2019 1 1 Encounter Details Date Type Department Care Team Description 02/03/2019 Routine Department of Jhonny Enriquez Examinat ion Other Normal Third Trimester (Primary Dx); Obstetrics and M.D. Wit h Personal History Gestational Diabetes Mellitus; Gynecology in Anemia Iron De ficiency [place] [address] [facility] [place] [address] Social History Tobacco Use Types Packs/Day Years [...] do you attend episcopalian or Never 2021 hoahaoism services? Do you belong to any clubs [...] or slept in a chcf (including now)? Sex Assigned at Date Recorded Female 06/02/2018 2:38 PM CDT documented as of this encounter Last Filed Vital Signs Vital Sign Reading Time Taken Comments Blood Pressure 98/62 02/03/2019 1:04 PM CDT Pulse 68 02/03/2019 1:04 PM CDT Temperature - - Respiratory Rate 14 02/03/2019 1:04 PM CDT Oxygen Saturation - - Inhaled Oxygen Concentration - - Weight 72.8 kg (160 lb 7.9 oz) 02/03/2019 1:04 PM CDT Height 153 cm (5' 0.24) 02/03/2019 1:04 PM CDT Body Mass Index 31.1 02/03/2019 1:04 PM CDT documented in this encounter Progress Notes Jhonny Enriquez M.D. - 02/03/2019 1:15 PM CDT CHIEF COMPLAINT / REASON FOR VISIT 1 Obstetrics office visit SUBJECTIVE Keily Ng is a 33 y.o. . Patient's last menstrual period was 06/09/2018. Her Estimated Date of Delivery: 03/16/19 determined by LMP consistent with 8 week ultrasound. Gestational age is 34w1d. She presents to the office today for follow up OB visit. Her is complicated by history of A1 gestational diabetes 2014, precipitous delivery 2014, delivery at 36 weeks 2009, chronic pain and??fibromyalgia, chronic vaginitis, precipitous delivery 2015, tension headache, right renal pyelectasis 8 mm. She has no complaints. She reports active movement. She denies leaking of fluid or [...] needed for constipation., Disp: , Rfl: ??? lidocaine (LIDODERM) 5 %, Place 1 patch on the skin daily. Apply to painful area 12 hours per day, remove for 12 hours., Disp: 30 patch, Rfl: 0 ??? ferrous sulfate 325 mg (65 mg iron) tablet, Take 1 tablet (65 mg of iron total) by mouth daily. (Patient not taking: Reported on 02/03/2019 ), Disp: 60 tablet, Rfl: 3 ??? vit27,calcium/iron/FA (MULTIVITAMIN/MINERAL-) tablet, Take 1 tablet by mouth daily., Disp: , Rfl: ??? vitamin-iron fumarate-FA 28 mg iron- 800 mcg per tablet, Take 1 tablet by mouth., Disp:, Rfl: OBJECTIVE BP 98/62 Pulse 68 Resp 14 Ht 153 cm Wt 72.8 kg LMP 06/09/2018 BMI 31.10 kg/m?? General: Well-developed well-nourished gravid female in no apparent distress. Alert and oriented x3. Abdomen: Gravid soft nontender positive bowel sounds. Fundal height at 34 cm. heart tones auscultated at 138. Presentation noted to be cephalic by Ky. Cervix: deferred Extremities: No clubbing cyanosis or edema. Nontender bilaterally. DIAGNOSTICS 02/03/2019 hemoglobin 10.7, hematocrit 32.5, platelets 292 01/25/2019 Ob ultrasound: Intrauterine at 32 weeks 6 day positive cardiac activity, estimated weight 2187 g, normal fluid level, anterior placenta, there is a 8 mm right renal pyelectasis with otherwise normal survey. ASSESSMENT / PLAN 1 Intrauterine at 34w1d. - I reviewed the patient's lab results. Her hemoglobin and hematocrit were stable. 2 History of delivery at 36 weeks [...] was normal on 12/02/2018. - I recommend repeat??diabetes screen. ??The patient declines. ??She had a normal 3 hr glucose tolerance [...] gestation and early period. - The patient saw Maternal- Medicine and had a normal level 2 survey other than the rightrenal pelviectasis at 8 mm. She had normal [...] 50% spent in counseling. Jhonny Enriquez MD Tellers Supervisor - Obstetrics and Gynecology [facility] documented in this encounter Plan of Treatment Upcoming Encounters Date Type Specialty Care Team Description 08/30/2022 Clinical Communication Admitting/Central Scheduling 09/02/2022 Comprehensive Visit Endocrinology Ricardo Winkler APRN, C.N.P., D.N.P. [address] [place] [address] Scheduled Referrals Name Type Priority Associated Order Schedule Diagnoses Obstetrics and Outpatient Referral Routine Expect ed: Gynecology office 02/17/2019 visit (clinic) (Approximate) , Expires: 02/03/2022 Obstetrics and Outpatient Referral Routine Expect ed: Gynecology office 02/24/2019 visit (clinic) (Approximate) , Expires: 02/03/2022 documented as of this encounter Visit Diagnoses Diagnosis Examination Other Normal Pregna ncy Third Trimester (HCC) - Primary With Personal History Gestatio nal Diabetes Mellitus (HCC) Anemia Iron Deficiency documented in this encounter Additional Health Concerns Assessment Noted Time PHQ-9 Depression Total Score: 13 12/04/2017 10:[address] documented as of this encounter Care Teams Pulmonologist Relationship Specialty Start Date End Date Yarelis Reyes M.D. PCP - General 05/08/17 01/03/21 [address] [place] [address] documented as of this encounter
--- OUTSIDE RECORDS SUMMARY | 2022-08-16 21:29 | XMS_ITS | Encounter Summary ---
:1985 Author Organization [facility] Address [address] [place] [address] Care Team Providers Name Role Phone Yarelis Reyes M.D. Primary Care Provider [phone] Encounter Details Date Type Department Care Team Description 01/25/2019 Hospital Encounter Department of Narinder Enriquez Examin ation Obstetrics and Efren Other Normal Gynecology in [place], [place] Trimester [address] [place] [address] Social History Tobacco Use Types Packs/Day Years [...] or relatives? How often do you attend methodist or Never 2021 samaritan services? Do you belong to any clubs or No 01/25/2022 organizations such as methodist groups, unions, fraternal or athletic groups, or [...] 19 vit27,calcium/iron/FA mouth daily. (MULTIVITAMIN/MINERAL-PREN ATAL) tablet vitamin-iron Take 1 tablet by 0 04/16/2022 fumarate-FA 28 mg iron- mouth. 800 mcg per tablet documented as of this encounter Plan of Treatment Upcoming Encounters Date Type Specialty Care Team Description 08/30/2022 Clinical Communication Admitting/Central Scheduling 09/02/2022 Comprehensive Visit Endocrinology Ricardo Winkler APRN, C.N.P., D.N.P. [address] [place] [address] documented as of this encounter Procedures Procedure Name Priority Date/Time Associated Comments Diagnosis US OB ADVANCED RAD - Routine 01/25/2019 10:07 Examination Results for this LEVEL PEREZ (most inpatients AM BASTING MACHINE OPERATOR Other proced ure are in and all Normal the results outpatients) Third Trimester section. documented in this encounter Results US OB Advanced Level Perez (01/25/2019 10:07 AM BASTING MACHINE OPERATOR) Anatomical Region Laterality Modality Body, Ultrasound OB RST LOS, Ultrasound ARZ LOS N/A Ultrasound Specimen (Source) Anatomical Location Collection Method / Collectio n Time Received Time / Laterality Volume Narrative 01/25/2019 10:48 AM BASTING MACHINE OPERATOR KEILY NG OB Exam, 01/25/2019 EXAM INFORMATION Patient Name: ??KEILY NG : ??1985 Age: ??33 yrs Sex: ??Female Ref Phys: ??NARINDER ENRIQUEZ Exam Date: 01/25/2019 Procedure: US OB ADVANCED LEVEL SINGLETO N Exam Site: [facility] OB #1 Plurality: 1 OBHx: [G:(7)] ?F Trm:() Pre:() C-Sec:() Ab-I:( ) Ab-S:() Ect:() Multi:() Kyung:() INDICATIONS FOR SONOGRAPHY Detailed Survey Right renal pyelectasis IMPRESSION Perez intrauterine . JOSE es tablished by LMP [...] lower extremities, hands, feet Abnormal: kidneys COMMENTS Perez . Size equals dates b y LMP, first trimester ultrasound. The Placenta is without evidence of previa. The amniotic fluid appears normal. The adnexae appear normal. EFW 58%, 2187 grams Right renal pelvis measures 8 mm in AP d iameter. Preliminary Read by Nathaly Garcia ( Kris), R.D.M.S. on 01/25/2019 10:13:35 AM. Physical Plant Manager: ??Nathaly Garcia (Kris) , R.D.M.S. Thank You For This Referral Procedure Note Manpreet Henderson M.D. - 01/25/2019Formattin g of this note might be different from the original. KEILY NG OB Exam, 01/25/2019 EXAM INFORMATION Patient Name: KEILY NG : 1985 Age: 33 yrs Sex: Female Ref Phys: NARINDER ENRIQUEZ Exam Date: 01/25/2019 Procedure: US OB ADVANCED LEVEL SINGLETO N Exam Site: [facility] OB #1 Plurality: 1 OBHx: [G:(7)] F Trm:() Pre:() C-Sec:() Ab-I:() Ab-S:( ) Ect:() Multi:() Kyung:() INDICATIONS FOR SONOGRAPHY Detailed Survey Right renal pyelectasis IMPRESSION Perez intrauterine . JOSE es tablished by LMP [...] lower extremities, hands, feet Abnormal: kidneys COMMENTS Perez . Size equals dates b y LMP, first trimester ultrasound. The Placenta is without evidence of previa. The amniotic fluid appears normal. The adnexae appear normal. EFW 58%, 2187 grams Right renal pelvis measures 8 mm in AP d iameter. Preliminary Read by Nathaly Garcia ( Kris), R.D.M.S. on 01/25/2019 10:13:35 AM. Physical Plant Manager: Nathaly Garcia R.D. (Kris)M.S. Thank You For This Referral Narinder Enriquez M.D. IMRehan OB US PROCEDURES documented in this encounter Visit Diagnoses Diagnosis Examination Other Normal Pregna ncy Third Trimester (HCC) documented in this encounter Additional Health Concerns Assessment Noted Time PHQ-9 Depression Total Score: 13 12/04/2017 10:[address] documented as of this encounter Care Teams Horse Identifier Relationship Specialty Start Date End Date FruehYarelis Deras M.D. PCP - General 05/08/17 01/03/21 [address] [place] [address] documented as of this encounter
--- OUTSIDE RECORDS SUMMARY | 2022-08-16 21:29 | XMS_ITS | Encounter Summary ---
:1985 Author Organization [facility] Address [address] [place] [address] Care Team Providers Name Role Phone Yarelis Reyes M.D. Primary Care Provider [phone] Reason for Visit Reason Onset Date Comments Communication 02/09/2019 Pt is concerned Encounter Details Date Type Department Care Team Description 02/09/2019 Clinical Communication [facility] (Pt is Family Medicine, syed hyman) [place] Yarelis Lewis M.D. in [place], [address] [place] [address] [place] [phone] Social History Tobacco Use Types Packs/Day [...] do you attend christian or Never 2021 advent services? Do you belong to any clubs [...] Telephone Encounter - Lori Stauffer R.N. - 02/09/2019 3:32 PM CDT Patient presented to [facility] for evaluation. Telephone Encounter - Ana M Santoyo - 02/09/2019 1:15 PM CDT Patient called with some concerns. Pt is 35 weeks . For the last week she has been having contractions that are 3-4 min apart, however she can get them to stop but then they start again. This morning she had a bloody discharge. She can be reached at [phone] documented in this encounter Plan of Treatment Upcoming Encounters Date Type Specialty Care Team Description 08/30/2022 Clinical Communication Admitting/Central Scheduling 09/02/2022 Comprehensive Visit Endocrinology Ricardo Winkler APRN, C.N.P., D.N.P. [address] [place] [address] documented as of this encounter Visit Diagnoses Not on filedocumented in this encounter Additional Health Concerns Assessment Noted Time PHQ-9 Depression Total Score: 13 12/04/2017 10:[address] documented as of this encounter Care Teams Air Reduction Equipment Operator Relationship Specialty Start Date End Date Yarelis Reyes M.D. PCP - General 05/08/17 01/03/21 [address] [place] [address] documented as of this encounter
--- OUTSIDE RECORDS SUMMARY | 2022-08-16 21:29 | XMS_ITS | Encounter Summary ---
:1985 Author Organization [facility] Address [address] [place] [address] Care Team Providers Name Role Phone Yarelis Reyes M.D. Primary Care Provider [phone] Encounter Details Date Type Department Care Team Description 02/26/2019 Orders Only Department of Family Micaela lam, [facility] advertising display rotator [address] [place], [place] [address]Jeff [place], [place] [phone] (Wo rk) Social History Tobacco Use Types [...] do you attend moravian or Never 2021 yarsani services? Do you [...] Ricardo Winkler, SILVIO, C.N.P., D.N.P. [address] [place] [address] documented as of this encounter Visit Diagnoses Not on filedocumented in this encounter Additional Health Concerns Assessment Noted Time PHQ-9 Depression Total Score: 13 12/04/2017 10:[address] documented as of this encounter Care Teams Logger Relationship Specialty Start Date End Date Yarelis Reyes M.D. PCP - General 05/08/17 01/03/21 [address] [place] [address] documented as of this encounter
--- OUTSIDE RECORDS SUMMARY | 2022-08-16 21:29 | XMS_ITS | Encounter Summary ---
:1985 Author Organization [facility] Address [address] [place] [address] Care Team Providers Name Role Phone Yarelis Reyes M.D. Primary Care Provider Reason for Visit Outpatient (Routine) - Closed Specialty Diagnoses / Procedures Referred By Contact Refer red To Contact Obstetrics and Jhonny Enriquez M.D. [facility] Gynecology [address] [place] [address] Referral ID Status Reason Start Date Expiration Date Visits Requ ested Visits Authorized [id number] Closed 02/03/2019 02/03/2020 1 1 Encounter Details Date Type Department Care Team Description 02/17/2019 Routine Department of Jhonny Enriquez Examinat ion Other Normal Third Trimester (Primary Dx); Obstetrics and M.DAmaris Anemia Iron D eficiency; Gynecology in With Personal History Gestational Diabetes Mellitus; [place], [place] Headache Tension Chronic; [address] [facility] Fibromyalgia; [place], [place] Cervical Dyspl rolf Personal History [phone] Social History Tobacco Use Types Packs/Day [...] or relatives? How often do you attend confucianism or Never 2021 worship services? Do you belong to any clubs or No 01/25/2022 organizations such as confucianism groups, unions, fraternal or athletic groups, or [...] Sign Reading Time Taken Comments Blood Pressure 104/60 02/17/2019 1:02 PM CDT Pulse 70 02/17/2019 1:02 PM CDT Temperature - - Respiratory Rate 14 02/17/2019 1:02 PM CDT Oxygen Saturation - - Inhaled Oxygen Concentration - - Weight 73.9 kg (163 lb 0.5 oz) 02/17/2019 1:02 PM CDT Height 153 cm (5' 0.24) 02/17/2019 1:02 PM CDT Body Mass Index 31.59 02/17/2019 1:02 PM CDT documented in this encounter Progress Notes Jhonny Enriquez M.D. - 02/17/2019 1:15 PM CDT CHIEF COMPLAINT / REASON FOR VISIT 1 Obstetrics office visit SUBJECTIVE Keily Ng is a 33 y.o. . Patient's last menstrual period was 06/09/2018. Her Estimated Date of Delivery: 03/16/19 determined by LMP consistent with 8 week ultrasound. Gestational age is 36w1d. She presents to the office today for follow up OB visit. Her is complicated by history of A1 gestational diabetes 2014, precipitous delivery 2014, delivery at 36 weeks 2009, chronic pain and??fibromyalgia, chronic vaginitis, precipitous delivery 2014, tension headache, right renal pyelectasis 8 mm. She has irregular uterine contractions that resolve with rest. She reports good movement. She denies leaking of fluid or vaginal bleeding. She denies pelvic pressure. She denies difficulty [...] tablet by mouth., Disp:, Rfl: OBJECTIVE BP 104/60 Pulse 70 Resp 14 Ht 153 cm Wt 73.9 kg LMP 06/09/2018 BMI 31.59 kg/m?? General: Well-developed well-nourished gravid female in no apparent distress. Alert and oriented x3. Abdomen: Gravid soft nontender positive bowel sounds. Fundal height at 36 cm. heart tones auscultated at 130. Presentation noted to be cephalic by Ky. Cervix: 3 cm dilated / 80 % / 0 station, medium cervix consistency, middle cervix position, cephalicpresentation, Rodriguez score 9 Extremities: No clubbing cyanosis or edema. Nontender bilaterally. Customer Greeter: Fanny Gracia STAMPING DIE MAKER [facility] 02/17/2019 GBS culture: Pending ASSESSMENT / PLAN 1 Intrauterine at 36w1d. - GBS cultures obtained today per protocol. - The patient's cervix is 3 cm dilated, 80% effaced, 0 station. 2 History of delivery at 36 weeks [...] symptoms. - Follow up in 1 weeks. - 30 minute visit with greater than 50% spent in counseling. Jhonny Enriquez MD Geodetic Computator - Obstetrics and Gynecology [facility] documented in this encounter Plan of Treatment Upcoming Encounters Date Type Specialty Care Team Description 08/30/2022 Clinical Communication Admitting/Central Scheduling 09/02/2022 Comprehensive Visit Endocrinology Ricardo Winkler APRN, C.N.P., D.N.P. [address] [place] [phone] documented as of this encounter Procedures Procedure Name Priority Date/Time Associated Diagnosis Comme nts GROUP B STREP (S. Routine 02/17/2019 1:16 PM Examination Prena jamilah Results for this AGALACTIAE), PCR CDT Other Normal procedure a re in Third the results Trimester section. documented in this encounter Results Group B Strep, PCR (02/17/2019 1:16 PM CDT) P athologist Signature Grp B Strep Negative Negative 02/18/2019 [facility] (S. 5:48 PM CDT HEALTH agalactiae), SYSTEM- PCR [facility] Specimen Anatomical Collection Method Collection Time Receive d Time (Source) Location / / Volume Laterality Varies 02/17/2019 1:16 PM 9 7:00 (Vagina-Rectum) CDT PM CDT Jhonny Enriquez M.D. LAB MICROBIOLOGY - GENERAL O RDERABLES Performing Organization Address City/State/ZIP Code Phon e Number [facility] [address] [place] [address] LAB documented in this encounter Visit Diagnoses Diagnosis Examination Other Normal Pregna ncy Third Trimester (HCC) - Primary Anemia Iron Deficiency With Personal History Gestatio nal Diabetes Mellitus (HCC) Headache Tension Chronic Fibromyalgia Cervical Dysplasia Personal History documented in this encounter Additional Health Concerns Assessment Noted Time PHQ-9 Depression Total Score: 13 12/04/2017 10:[address] documented as of this encounter Care Teams Dye Penetrant Testing Technician Relationship Specialty Start Date End Date Yarelis Reyes M.D. PCP - General 05/08/17 01/03/21 [address] [place] [address] documented as of this encounter
--- OUTSIDE RECORDS SUMMARY | 2022-08-16 21:29 | XMS_ITS | Encounter Summary ---
:1985 Author Organization [facility] Address [address] [place] [address] Care Team Providers Name Role Phone Yarelis Reyes M.D. Primary Care Provider [phone] Encounter Details Date Type Department Care Team Description 12/09/2018 Orders Only Department of Obstetrics and Jhonny Enriquez M.D. Gynecology in [place], [place] [address] [place] [address] Social History Tobacco Use [...] or relatives? How often do you attend spiritism or Never 2021 catholic services? Do you belong to any clubs or No 01/25/2022 organizations such as spiritism groups, unions, fraternal or athletic groups, or [...] Ricardo Winkler, SILVIO, C.N.P., D.N.P. [address] [place] [address] documented as of this encounter Visit Diagnoses Not on filedocumented in this encounter Additional Health Concerns Assessment Noted Time PHQ-9 Depression Total Score: 13 12/04/2017 10:[address] documented as of this encounter Care Teams Bowling Floor Desk Clerk Relationship Specialty Start Date End Date Yarelis Reyes M.D. PCP - General 05/08/17 01/03/21 [address] [place] [address] documented as of this encounter
--- OUTSIDE RECORDS SUMMARY | 2022-08-16 21:29 | XMS_ITS | Encounter Summary ---
:1985 Author Organization [facility] Address [address] [place] [address] Care Team Providers Name Role Phone Yarelis Reyes M.D. Primary Care Provider [phone] Reason for Visit Reason Comments Consult MFM consult Outpatient (Routine) - Closed Specialty Diagnoses / Procedures Referred By Contact Refer red To Contact Obstetrics and Diagnoses Examination Other Normal Third Trimester (HCC) Jhonny Enriquez M.D. [facility] Gynecology [address] [place] [address] Referral ID Status Reason Start Date Expiration Date Visits Requ ested Visits Authorized [id number] Closed 01/18/2019 01/18/2020 1 1 Encounter Details Date Type Department Care Team Description 01/25/2019 Routine Department of Brian Chino Obstetrics and P, M.B.B.S., Other Normal Gynecology in M.D. Third [place], [place] [address] [facility] Trimester [address] [place] [address] [phone] Social History Tobacco Use Types Packs/Day Years [...] or relatives? How often do you attend jewish or Never 2021 rastafari services? Do you belong to any clubs or No 01/25/2022 organizations such as jewish groups, unions, fraPrimitive Makeup or athletic groups, or school groups? How [...] or slept in a retirement (including now)? Sex Assigned at Date Recorded Female 06/02/2018 2:38 PM CDT documented as of this encounter Last Filed Vital Signs Vital Sign Reading Time Taken Comments Blood Pressure 95/61 01/25/2019 10:44 AM BANKING MANAGEMENT CONSULTING MANAGER Pulse 74 01/25/2019 10:44 AM BANKING MANAGEMENT CONSULTING MANAGER Temperature - - Respiratory Rate - - Oxygen Saturation - - Inhaled Oxygen Concentration - - Weight 72.7 kg (160 lb 4.4 oz) 01/25/2019 10:44 AM BANKING MANAGEMENT CONSULTING MANAGER Height - - Body Mass Index 31.06 01/18/2019 2:13 PM BANKING MANAGEMENT CONSULTING MANAGER documented in this encounter Progress Notes Brian hCino M.B.B.S., M.Roger. - 01/25/2019 10:[address] Thank you for asking us to see this lady today whose fetus was found to have unilateral pyelectasis measuring 9 mm today. The other kidney was normal, amniotic fluid volume and the bladder also appeared to be normal. I understand she has had cell free DNA testing at 12 weeks which was low risk for themajor trisomies. She is well informed about this condition, and I would suggest arranging a neonatalrenal scan 36-48 hours after delivery and if it is still present at refer on to a pediatric urologist for assessment of reflux. ING MANAGEMENT CONSULTING MANAGER documented in this encounter Plan of Treatment Upcoming Encounters Date Type Specialty Care Team Description 08/30/2022 Clinical Communication Admitting/Central Scheduling 09/02/2022 Comprehensive Visit Endocrinology Ricardo Winkler APRN, C.N.P., D.N.P. [address] [place] [address] documented as of this encounter Visit Diagnoses Diagnosis Examination Other Normal Pregna ncy Third Trimester (HCC) documented in this encounter Additional Health Concerns Assessment Noted Time PHQ-9 Depression Total Score: 13 12/04/2017 10:[address] documented as of this encounter Care Teams Display Manager Relationship Specialty Start Date End Date Yarelis Reyes M.D. PCP - General 05/08/17 01/03/21 [address] [place] [address] documented as of this encounter
--- OUTSIDE RECORDS SUMMARY | 2022-08-16 21:29 | XMS_ITS | Encounter Summary ---
:1985 Author Organization [facility] Address [address] [place] [address] Care Team Providers Name Role Phone Yarelis Reyes M.D. Primary Care Provider Reason for Referral Outpatient (Routine) - Closed Specialty Diagnoses / Procedures Referred By Contact Refer red To Contact Obstetrics and Jhonny Enriquez M.D. [facility] Gynecology [address] [place] [address] Referral ID Status Reason Start Date Expiration Date Visits Requ ested Visits Authorized [id number] Closed 03/01/2019 02/29/2020 1 1 Encounter Details Date Type Department Care Team Description 03/01/2019 Orders Only Department of Obstetrics and Jhonny Enriquez M.D. Gynecology in [place], [place] [address] [place] [address] Social History Tobacco Use Types Packs/Day [...] or relatives? How often do you attend temple or Never 2021 buddhist services? Do you belong to any clubs or No 01/25/2022 organizations such as temple groups, unions, fraBlueliv or athletic groups, or school groups? How [...] Ricardo Winkler, SILVIO, C.N.P., D.N.P. [address] [place] [address] Scheduled Referrals Name Type Priority Associated Order Schedule Diagnoses Obstetrics and Outpatient Referral Routine Expect ed: Gynecology office 04/07/2019 visit (clinic) (Approximate) , Expires: 03/01/2022 documented as of this encounter Visit Diagnoses Not on filedocumented in this encounter Additional Health Concerns Assessment Noted Time PHQ-9 Depression Total Score: 13 12/04/2017 10:[address] documented as of this encounter Care Teams Director Client Relationship Specialty Start Date End Date Yarelis Reyes M.D. PCP - General 05/08/17 01/03/21 [address] [address] documented as of this encounter
--- OUTSIDE RECORDS SUMMARY | 2022-08-16 21:29 | XMS_ITS | Encounter Summary ---
:[address] [facility] Address [address] [place] [address] Care Team Providers Name Role Phone Yarelis Reyes M.D. Primary Care Provider [phone] Encounter Details Date Type Department Care Team Description 01/18/2019 Hospital Encounter Department of Jhonny Enriquez Examin ation Other Normal Third Trimester; Radiology in M.D. Anemia Iron Def iciency [place], [place] [address] [place] [phone] Social History Tobacco Use Types Packs/Day Years [...] do you attend yazidi or Never 2021 church services? Do you [...] or slept in a residential (including now)? Sex Assigned at Date Recorded [...] Ricardo Winkler, SILVIO, C.N.P., D.N.P. [address] [place] [address] documented as of this encounter Procedures Procedure Name Priority Date/Time Associated Comments Diagnosis US OB FOLLOW-UP RAD - Routine 01/18/2019 2:03 Examination Results for this AND OR GROWTH (most inpatients PM MANAGER GROCERY Other procedur e are in PEREZ and all Normal the results outpatients) Third Trimester section. Anemia Iron Deficiency documented in this encounter Results US OB Follow-up and or Growth Perez (01/18/2019 2:03 PM MANAGER GROCERY) Anatomical Region Laterality Modality Body, Ultrasound OB RST LOS, Ultrasound ARZ LOS N/A Ultrasound Specimen (Source) Anatomical Collection Method Collection Time Re ceived Time Location / / Volume Laterality 01/18/2019 2:22 PM MANAGER GROCERY Impressions 01/18/2019 2:27 PM MANAGER GROCERY IMPRESSION: 1. ??Intrauterine at 31 weeks 6 day with positive cardiac activity. 2. ??Estimated weight 1842 g which is 37th percentile for growth. 3. ??Normal fluid level with maximum lina tical pocket 4.5 cm. 4. ??Anterior placenta without placenta previa. 5. ?? right renal pelviectasis at 8 mm. 6. ??No other anomalies noted. Jhonny Enriquez MD Narrative 01/18/2019 2:27 PM MANAGER GROCERY EXAM: US OB FOLLOW-UP AND OR GROWTH PEREZ COMPARISON: None FINDINGS: Number of Gestations: Single Established Gestational age: ??31 weeks 6 day, JOSE 03/16/2019. Presentation: ??Cephalic Placental Location: ??Anterior without p lacenta previa Amniotic Fluid Maximum Vertical Pocket: ??4.5 cm Age by current ultrasound measurements: ??31 weeks 6 day. Estimated weight: ??1842 grams. EFW is at the 37 percentile for gestatio nal age. BPD 42 %ile, 8.0 cm consistent with 32 w cabazon 1 day HC 42 %ile, 29.7 cm consistent with 33 w eeks 0 day AC 52 %ile, 27.3 cm consistent with 31 w cabazon 3 day FL 41 %ile, 6.2 cm consistent with 32 we ek 1 day heart rate: ??154 bpm. Right renal dilation 8 mm Maternal ovaries/adnexae: Normal Cervix: No abnormality identified trans- abdominally. Procedure Note Jhonny Enriquez M.D. - 01/18/2019Formatti ng of this note might be different from the original. EXAM: US OB FOLLOW-UP AND OR GROWTH SING LETON COMPARISON: None FINDINGS: Number of Gestations: Single Established Gestational age: 31 weeks 6 day, JOSE 03/16/2019. Presentation: Cephalic Placental Location: Anterior without mark centa previa Amniotic Fluid Maximum Vertical Pocket: 4.5 cm Age by current ultrasound measurements: 31 weeks 6 day. Estimated weight: 1842 grams. EFW is at the 37 percentile for gestatio nal age. BPD 42 %ile, 8.0 cm consistent with 32 w cabazon 1 day HC 42 %ile, 29.7 cm consistent with 33 w eeks 0 day AC 52 %ile, 27.3 cm consistent with 31 w cabazon 3 day FL 41 %ile, 6.2 cm consistent with 32 we ek 1 day heart rate: 154 bpm. Right renal dilation 8 mm Maternal ovaries/adnexae: Normal Cervix: No abnormality identified trans- abdominally. IMPRESSION: 1. Intrauterine at 31 weeks 6 day with positive cardiac activity. 2. Estimated weight 1842 g which i s 37th percentile for growth. 3. Normal fluid level with maximum verti faviola pocket 4.5 cm. 4. Anterior placenta without placenta pr evia. 5. right renal pelviectasis at 8 m m. 6. No other anomalies noted. Jhonny Enriquez MD Jhonny Enriquez M.D. IMG OB US PROCEDURES documented in this encounter Visit Diagnoses Diagnosis Examination Other Normal Pregna ncy Third Trimester (HCC) Anemia Iron Deficiency documented in this encounter Additional Health Concerns Assessment Noted Time PHQ-9 Depression Total Score: 13 12/04/2017 10:[address] documented as of this encounter Care Teams Residential Glazier Relationship Specialty Start Date End Date Yarelis Reyes M.D. PCP - General 05/08/17 01/03/[address] [place] [id number] documented as of this encounter
--- OUTSIDE RECORDS SUMMARY | 2022-08-16 21:29 | XMS_ITS | Encounter Summary ---
:1985 Author Organization [facility] Address [address] [place] [address] Care Team Providers Name Role Phone Yarelis Reyes M.D. Primary Care Provider [phone] Encounter Details Date Type Department Care Team Description 02/26/2019 Clinical Communication Department of Jhonny Enriquez, Obstetrics and Efren Gynecology in [place], [place] [address], [place] [address] [facility] [phone] Social History Tobacco Use Types Packs/Day Years [...] do you attend lutheran or Never 2021 druze services? Do you belong to any clubs [...] or slept in a assisted (including now)? Sex Assigned at Date Recorded Female 06/02/2018 2:38 PM CDT documented as of this encounter Miscellaneous Notes Telephone Encounter - Natalya Singh R.N. - 02/26/2019 4:30 PM CDT Keily was notified of recommendations. Telephone Encounter - Natalya Singh R.N. - 02/26/2019 1:53 PM CDT Left message to call back Telephone Encounter - Jhonny Enriquez M.D. - 02/26/2019 1:49 PM CDT Yes. I think that her headache is secondary to the saline and neti pot. Please have her stop the neti pot. I am glad that her headache has improved. She can use Tylenol as needed. I recommend she keep her appointment with me Friday morning. She should present to [facility] if her symptoms worsen this . Jhonny Enriquez M.D. Telephone Encounter - Natalya Singh R.N. - 02/26/2019 1:19 PM CDT Currently 37 3/7 wk gestation. Has had URI symptoms for past 15-16 days and sinus symptoms for past 5 days. Productive cough of thick green mucus. Has seen primary care and they were reluctant to prescribe antibiotics. She took Afrin for 2 days and started with NetiPot yesterday. Last night headache started at 10 pm at rating of 3-4. It increased intensity this morning-took 2 extra strength tylenol, coffee and headache has subsided to rate of 5. She is blowing nose frequently. Left eye sensitive to light, no floater or double vision. No swelling. No fever. No epigastric pain. H/O neck stiffness andtoday is not any worse than normal. Active baby, denies loss of fluids, vaginal bleeding, or consistent contractions. Wondering if headache caused by saline of the netipot? Please advise. Telephone Encounter - Romina Hernandez - 02/26/2019 12:49 PM CDT Reason for Communication: Patient calling in and states that she has had a headache for 12 hours on the left side of her head. Patient also states that she has had a sinus infection for th e past 15-16days. She is wondering if this should be a concern for her. Please advise. Patient is 37 weeks . Current Can Nursing/Provider leave a detailed message: Did the patient refuse triage through Nurse line? (for symptom based concerns): NL sent her over to me Action Needed: Call back Name of Medication (if relevant): documented in this encounter Plan of Treatment Upcoming Encounters Date Type Specialty Care Team Description 08/30/2022 Clinical Communication Admitting/Central Scheduling 09/02/2022 Comprehensive Visit Endocrinology Ricardo Winkler APRN, C.N.P., D.N.P. [address] [place] [address] documented as of this encounter Visit Diagnoses Not on filedocumented in this encounter Additional Health Concerns Assessment Noted Time PHQ-9 Depression Total Score: 13 12/04/2017 10:[address] documented as of this encounter Care Teams Licensed Massage Practitioner Relationship Specialty Start Date End Date Yarelis Reyes M.D. PCP - General 05/08/17 01/03/21 [address] [facility] [place] [phone] documented as of this encounter
--- OUTSIDE RECORDS SUMMARY | 2022-08-16 21:29 | XMS_ITS | Encounter Summary ---
:1985 Author Organization [facility] Address [address] [place] [address] Care Team Providers Name Role Phone Yarelis Reyes M.D. Primary Care Provider [phone] Encounter Details Date Type Department Care Team Description 02/03/2019 Hospital Encounter Department of Jhonny Enriquez Examin ation Other Normal Third Trimester; Laboratory Medicine M.DAmaris Anemia I viviana Deficiency in [place], [place] [address] [facility] [place] [phone] Social History Tobacco Use Types Packs/Day Years [...] do you attend christian or Never 2021 lutheran services? Do you [...] place to sleep or slept in a detention (including now)? Sex Assigned at Date Recorded [...] Endocrinology Ricardo Winkler APRN, C.N.P., D.N.P. [address] [place] [phone] documented as of this encounter Procedures Procedure Name Priority Date/Time Associated Diagnosis Comme nts CBC WITHOUT Routine 02/03/2019 12:50 PM Examination Results for this DIFFERENTIAL, B CDT Other Normal procedure ar e in Third the results Trimester section. Anemia Iron Deficiency documented in this encounter Results (ABNORMAL) CBC without Differential (02/03/2019 12:50 PM CDT) [facility] Method Time Signature Hemoglobin 10.7 (L) 11.6 - 02/03/2019 [facility] 15.0 g/dL 12:58 PM CDT [facility] Hematocrit 32.5 (L) 35.5 - 02/03/2019 [facility] 44.9 % 12:58 PM CDT [facility] Erythrocytes 3.35 (L) 3.92 - 02/03/2019 [facility] 5.13 12:58 PM CDT [facility] x10(12)/L [facility] MCV 97.0 78.2 - 02/03/2019 [facility] 97.9 fL 12:58 PM CDT [facility] RBC Distrib Width 14.6 12.2 - 02/03/2019 [facility] 16.1 % 12:58 PM CDT [facility] Platelet Count 292 157 - 371 02/03/2019 [facility] x10(9)/L 12:58 PM CDT [facility] Leukocytes 10.1 (H) 3.4 - 9.6 02/03/2019 [facility] x10(9)/L 12:58 PM CDT [facility] Specimen Anatomical Collection Method Collection Time Receive d Time (Source) Location / / Volume Laterality Blood (Blood, 02/03/2019 12:50 02/03/2019 Venous) PM CDT 12:50 PM CDT Jhonny Enriquez M.D. LAB BLOOD ADD-ON Performing Organization Address City/State/ZIP Code Phon e Number [facility] [address] [place] [address] LAB documented in this encounter Visit Diagnoses Diagnosis Examination Other Normal Pregna ncy Third Trimester (HCC) Anemia Iron Deficiency documented in this encounter Additional Health Concerns Assessment Noted Time PHQ-9 Depression Total Score: 13 12/04/2017 10:[address] documented as of this encounter Care Teams Tnt Line Supervisor Relationship Specialty Start Date End Date Yarelis Reyes M.D. PCP - General 05/08/17 01/03/21 [address] [facility] [place] [phone] documented as of this encounter
--- OUTSIDE RECORDS SUMMARY | 2022-08-16 21:29 | XMS_ITS | Encounter Summary ---
:1985 Author Organization [facility] Address [address] [place] [address] Care Team Providers Name Role Phone Yarelis Reyes M.D. Primary Care Provider [phone] Reason for Visit Reason Comments Injection Visit Headache Neck Pain Encounter Details Date Type Department Care Team Description 01/13/2019 Procedure visit Department of Physical Lechuga, Davy adamatilda Cervicogenic (Primary Dx); Medicine and Chris Castro M.D. Headache; Rehabilitation in [address] Pain Myofascial Cervical; [place], [place] Myalgia [address] [address] [place] [address] [phone] Social History Tobacco Use Types Packs/Day Years [...] do you attend anglican or Never 2021 quaker services? Do you [...] PM CDT documented as of this encounter Patient Instructions Patient InstructionsChris Lechuga M.D. - 01/13/2019 1:00 PM CST Images from the original note were not included. Patient Education Care After Your Steroid Injection Follow these instructions after your steroid injection. If you have questions, talk with your healthcare provider. Diet Continue with your usual diet, unless you are told otherwise. Bathing You may shower. Do not soak in a bath tub or use a hot tub, whirlpool, or sauna for the first 48 hours. Procedure site dressing(s) Remove your adhesive bandage(s) before showering. Side effects The following conditions may begin within one hour of the procedure and last up to four hours: ?? Numbness, tingling or weakness in your arms, legs or both. ?? Difficulty urinating or leaking urine. ?? Dizziness or light-headedness. If these conditions last longer than four hours, contact a member of your health care team as you were told. For a few days after your injection, you may have: ?Hot flashes?? and a red, flushed look on your face. ?? Difficulty sleeping and/or feel very alert or ???revved up.? Both positive and negative moods (mood swings). Activity Do not drive today. Do not provide care for anyone who depends on your help. After the first day, ease back into doing your daily activities. Fall prevention (for injections in the spine or legs) For several hours after the injection, it is easier to fall and hurt yourself because your legs may feel numb, clumsy, weak and unsteady. Falling could cause you to break a bone or have a serious back injury. To help keep from falling: ?? Be careful when you step on and off curbs, climb stairs and walk. ?? Remove any clutter and rugs from your floors, especially in the walkways. ?? Wear shoes with low heels until your legs feel steady again. Pain After four to six hours, the local anesthetic will wear off and your usual pain will return for a few days until you feel the anti-inflammatory effect of the steroid. It is possible for the pain to feel worse before it begins to feel better. Your procedure site(s) may feel sore for one to two days. It may be about two weeks after the procedure before you feel the greatest pain relief. For mild discomfort related to your procedure site(s), apply an ice pack covered in a soft cloth to the site(s) for 15 to 20 minutes during the first 24 hours. Repeat every four to six hours, as needed. Do not use a heating pad or any form of heat on the procedure site(s) for the first 48 hours. Medications Take your regular medications, unless you are told otherwise by your health care provider. For pain relief, take prescription pain medication or acetaminophen (Tylenol???) in the recommended dose according to package instructions. If you take blood-thinning medication Blood-thinning medications affect clotting and bleeding. If your blood-thinning medications were stopped before your procedure, both the health care provider who manages these medications and the provider who performed your procedure will need to decide when to restart these medications. If you have diabetes Your blood glucose will rise for a few days after your steroid injection(s). Monitor your blood glucose as instructed by the health care provider managing your diabetes. If your blood glucose is higher than your usual range, or if you have any questions or concerns, contact the health care provider managing your diabetes. Illness not related to injection If you become ill, have an injury or need surgery after you have the injection, tell your health care provider you had a cortisone injection. When to get medical care Contact a member of your health care team as you were told if you have: ?? A temperature of 100.4 degrees Fahrenheit (38 degrees Celsius) or higher. ?? Chills. ?? A procedure site that becomes red, swollen, tender, or warm. ?? Unusual drainage, color or odor from a procedure site. ?? Increasing pain or tenderness at a procedure site that cannot be relieved with pain medication. ?? A change in the color or temperature of your arms or legs. ?? Questions or concerns. Have someone take you to the nearest emergency center (do not drive yourself), or call 911 or your local emergency number if you have: ?? Bleeding that does not stop after you put ice on the area for 10 minutes. ?? Signs of an allergic reaction: ? Rash. ? Swelling in your throat. ? Difficulty with swallowing. ? Wheezing or difficulty with breathing. Monitoring your pain It is important to know the amount and duration of pain you have after your procedure. A care steam meter reader may call you within two weeks after your procedure to see if you have any questions or concernsand to ask about your pain. Be prepared to answer the following questions: ?? Did your pain improve? ?? If so, how much did your pain improve? ?? For how long did your relief last? You may be asked to rate your pain on a scale of 0 to 10, or another scale as appropriate. Zero means you have no pain, 5 means you have a moderate amount of pain, and 10 is the worst pain you have ever had. This material is for your education and information only. This content does not replace medical advice, diagnosis or treatment. New medical research may change this information. If you have questions about a medical condition, always talk with your health care provider. ? 2017 [facility] ([employer]). All rights reserved. [id number] NEERING DESIGN MANAGER documented in this encounter Procedure Notes Chris Lechuga M.D. - 01/13/2019 1:00 PM CSTAssociated Order(s): PMR TRIGGER POINT INJECTION (PROCEDURE ONLY) Pre-Procedure Diagnose(s): Headache Unspecified Post-Procedure Diagnose(s): Headache Unspecified Ultrasound-guided right levator scapulae, trapezius (upper and mid), and cervical paraspinal triggerpoint injection Date/Time: 01/13/2019 5:38 PM Performed by: CHRIS LECHUGA Authorized by: CHRIS LECHUGA Care team members present: PMR nurse Indication: Myalgias, cervical and thoracic myofascial pain, cervicogenic headache Soft tissue site: Right thoracic and Right cervical Procedure details: Cervical position: Seated Preparation: Patient was prepped and draped in usual sterile fashion Needle size: 25 G Needle length: 2.5 in Ultrasound guidance?: Yes Ultrasound probe (MHz): Linear mid-frequency Needle visualization: In-plane Needle approach: Lateral to medial Injected medications: The injected medication(s) listed was divided equally between the identified injection location(s) Number of muscles injected: 3 or more muscles Injected medications: 5 mL lidocaine 10 mg/mL (1 %) 40 mg methylPREDNISolone acetate 40 mg/mL Procedure details: Cervical procedure description: The patient was placed in the appropriate position. Prior to the procedure, the appropriate cervical region was examined to determine the location of the trigger point(s) and optimal needle path. Thereafter, a needle was advanced into the trigger point(s) and after negative aspiration, the medication was injected. Following the injection, the needle was withdrawn. Thepatient tolerated the procedure well and there were no apparent complications. After an appropriate amount of observation, the patient was dismissed from the clinic in good condition under their own power. Thoracic procedure description: The patient was placed in the appropriate position. Prior to the procedure, the thoracic region was examined to determine the location of the trigger point(s) and optimal needle path. Thereafter, a needle was advanced into the trigger point(s) and after negative aspiration, the medication was injected. Following the injection, the needle was withdrawn. The patient tolerated the procedure well and there were no apparent complications. After an appropriate amount of observation, the patient was dismissed from the clinic in good condition under their own power. Complications: no apparent complications Consent: Consent obtained: Verbal and written Consent given by: Patient The benefits, risks and alternatives to the procedure and the potential need for sedation or anesthesia as well as the names, roles, and responsibilities of healthcare team members performing significant interventional tasks were discussed with the patient and/or decision maker: yes [place] protocol: All relevant documentation and testing were reviewed and available. All required blood products, implants, devices and/or special equipment were made available as applicable. The pre-procedure verification was conducted, the correct site was marked if required, and the procedural time out was conducted prior to performing the procedure and confirmed in a procedural pause: yes Pre-procedure details: Appropriate hand hygiene, gown, cap, mask, protective eyewear, sterile gloves, skin preparation, sterile drape, and strict aseptic technique were utilized as applicable for the procedure.: yes Skin preparation: Chlorhexidine NEERING DESIGN MANAGER documented in this encounter Plan of Treatment Upcoming Encounters Date Type Specialty Care Team Description 08/30/2022 Clinical Communication Admitting/Central Scheduling 09/02/2022 Comprehensive Visit Endocrinology Ricardo Winkler APRN, C.N.P., D.N.P. [address] [place] [id number] documented as of this encounter Procedures Procedure Name Priority Date/Time Associated Diagnosis Comme nts [place] US GUIDE PLC NDL Routine 01/13/2019 1:00 PM Headache Re sults for this ENGINEERING DESIGN MANAGER procedure are i n the results section. NJ INJ TRIGGER PNT Routine 01/13/2019 1:00 PM Headache Res ults for this >=3 MUS ENGINEERING DESIGN MANAGER procedure are i n the results section. documented in this encounter Results NJ INJ TRIGGER PNT >=3 MUS, [place] US GUIDE PLC NDL (01/13/2019 1:00 PM ENGINEERING DESIGN MANAGER) Specimen (Source) Anatomical Location Collection Method / Collectio n Time Received Time / Laterality Volume Narrative MMODAL - 01/13/2019 1:00 PM ENGINEERING DESIGN MANAGER Chris Lechuga M.D. ? 01/13/2019 ??5:41 PM Ultrasound-guided right levator scapulae , trapezius (upper and mid), and cervical paraspinal trigger point inject ion Date/Time: 01/13/2019 5:38 PM Performed by: CHRIS LECHUGA Authorized by: CHRIS LECHUGA Care team members present: ??PMR nurse ?Indication: Myalgias, cervical and th oracic myofascial pain, cervicogenic headache ??Soft tissue site: ??Right thoracic an d Right cervical Procedure details: ??Cervical position: ??Seated ??Preparation: Patient was prepped and draped in usual sterile fashion ?Needle size: ??25 G ??Needle length: ??2.5 in ??Ultrasound guidance?: Yes ?Ultrasound probe (MHz): ??Linear mid- frequency ??Needle visualization: ??In-plane ??Needle approach: ??Lateral to medial ??Injected medications: The injected me dication(s) listed was divided equally between the identified injection location(s) ?Number of muscles injected: 3 or more muscles Injected medications: ??5 mL lidocaine 10 mg/mL (1 %) ??40 mg methylPREDNISolone acetate 40 m g/mL Procedure details: ??Cervical procedure description: The p atient was placed in the appropriate position. Prior to the proce dure, the appropriate cervical region was examined to determine the loc ation of the trigger point(s) and optimal needle path. Thereafter, a needl e was advanced into the trigger point(s) and after negative aspiration, the medication was injected. Following the injection, the needle was withdrawn. ??The patient tolerated the procedure well and there were no joel arent complications. ??After an appropriate amount of observation, the p atient was dismissed from the clinic in good condition under their own power. ?Thoracic procedure description: The p atient was placed in the appropriate position. ??Prior to the pro cedure, the thoracic region was examined to determine the location of th e trigger point(s) and optimal needle path. Thereafter, a needle was ad vanced into the trigger point(s) and after negative aspiration, the medic ation was injected. Following the injection, the needle was withdrawn. ??T he patient tolerated the procedure well and there were no apparent complica tions. ??After an appropriate amount of observation, the patient was d ismissed from the clinic in good condition under their own power. ?Complications: no apparent complicati ons ?? Consent: ??Consent obtained: ??Verbal and writte n ??Consent given by: ??Patient ??The benefits, risks and alternatives to the procedure and the potential need for sedation or anesthesia as well as the names, roles, and responsibilities of healthcare team memb ers performing significant interventional tasks were discussed with the patient and/or decision maker: yes ?? [place] protocol: ??All relevant documentation and testin g were reviewed and available. All required blood products, implants, devic es and/or special equipment were made available as applicable. The pre-pr ocedure verification was conducted, the correct site was marked i f required, and the procedural time out was conducted prior to performi ng the procedure and confirmed in a procedural pause: yes ?? Pre-procedure details: ??Appropriate hand hygiene, gown, cap, mask, protective eyewear, sterile gloves, skin preparation, sterile drape, and strict aseptic technique were utilized as applicable for the procedure .: yes ?Skin preparation: ??Chlorhexidine Chris Lechuga M.D. PROCEDURE/MINOR SURGICAL ORD ERABLES Performing Organization Address City/State/ZIP Code Phon e Number MMODAL MMODAL NA documented in this encounter Visit Diagnoses Diagnosis Headache Cervicogenic - Primary Headache Unspecified Pain Myofascial Cervical Myalgia documented in this encounter Administered Medications Inactive Administered Medications - up to 3 most recent administrations Medication Order MAR Action Action Date Dose Rate Site lidocaine 10 mg/mL (1 %) injection 5 Given 01/13/2019 5:38 PM CS T 5 mL mL (XYLOCAINE) 5 mL, injection, One-Time Injection, Starting on Fri01/13/19 at 1738, For 1 dose methylPREDNISolone acetate injection 40 mg Given 01/13/2019 5:38 PM ENGINEERING DESIGN MANAGER 40 mg (DEPO-Medrol) 40 mg, injection, One-Time Injection, Starting on Fri01/13/19 at 1738, For 1 dose documented in this encounter Additional Health Concerns Assessment Noted Time PHQ-9 Depression Total Score: 13 12/04/2017 10:[address] documented as of this encounter Care Teams Manager Photography Relationship Specialty Start Date End Date Yarelis Reyes M.D. PCP - General 05/08/17 01/03/21 [address] [place] [phone] documented as of this encounter
--- OUTSIDE RECORDS SUMMARY | 2022-08-16 21:29 | XMS_ITS | Encounter Summary ---
:1985 Author Organization [facility] Address [address] [place] [id number] Care Team Providers Name Role Phone Yarelis Reyes M.D. Primary Care Provider [phone] Reason for Visit Appointment Request (Routine) - Closed Specialty Diagnoses / Procedures Referred By Contact Refer red To Contact Obstetrics and Gynecology Referral ID Status Reason Start Date Expiration Date Visits Requ ested Visits Authorized [id number] Closed 12/25/2018 12/25/2019 1 1 Encounter Details Date Type Department Care Team Description 12/25/2018 Routine Department of Jhonny Enriquez Examinat ion Other Normal Second Trimester (Primary Dx); Obstetrics and M.D. Strain Abdome n Wall Muscle Initial Gynecology in [place], [place] [address] [place] [address] Social History Tobacco Use Types [...] or relatives? How often do you attend scientology or Never 2021 orthodoxy services? Do you belong to any clubs or No 01/25/2022 organizations such as scientology groups, unions, fraternal or athletic groups, or [...] Sign Reading Time Taken Comments Blood Pressure 98/56 12/25/2018 3:34 PM GRAVITY PROSPECTING OPERATOR HELPER Pulse 76 12/25/2018 3:34 PM GRAVITY PROSPECTING OPERATOR HELPER Temperature 36.8 ??C (98.2 ??F) 12/25/2018 3:34 PM GRAVITY PROSPECTING OPERATOR HELPER Respiratory Rate 16 12/25/2018 3:34 PM GRAVITY PROSPECTING OPERATOR HELPER Oxygen Saturation - - Inhaled Oxygen Concentration - - Weight 74.7 kg (164 lb 12.7 oz) 12/25/2018 3:34 PM GRAVITY PROSPECTING OPERATOR HELPER Height 153 cm (5' 0.24) 12/25/2018 3:34 PM GRAVITY PROSPECTING OPERATOR HELPER Body Mass Index 31.93 12/25/2018 3:34 PM GRAVITY PROSPECTING OPERATOR HELPER documented in this encounter Progress Notes Jhonny Enriquez M.D. - 12/25/2018 3:30 PM CST CHIEF COMPLAINT / REASON FOR VISIT 1 Obstetrics office visit 2 Right side pain SUBJECTIVE Keily Ng is a 33 y.o. . Patient's last menstrual period was 06/09/2018. Her Estimated Date of Delivery: 03/16/19 determined by LMP consistent with 8 week ultrasound. Gestational age is 28w3d. She presents to the office today for acute OB visit. Her is complicated by history of A1 gestational diabetes 2014, precipitous delivery 2014, delivery at 36 weeks 2010, chronicpain and??fibromyalgia, chronic vaginitis, precipitous delivery 2015, tension headache. She presents for acute OB visit complaining of right upper quadrant and right abdomen pain that started last night. She describes this as a sharp intermittent pain that is worse with movement. She denies any association with eating. No nausea or vomiting. No headaches or vision changes. No shortness of breath, chest pain, or dyspnea. She reports that she tired and has not gotten much rest because her father just had surgery. She has not tried any Tylenol or [id number] medication. She thinks that this is a muscle strain and related to movement but wants to make sure it is nothing serious before the weekend. She has no other complaints. She reports good movement. She denies leaking of fluid or vaginalbleeding. She denies cramping or contractions. She denies pelvic pressure. She denies difficulty urinating. She denies depression symptoms. ALLERGIES Allergies Allergen Reactions ??? Bupropion Hcl Anxiety flush, anger MEDICATIONS Current Outpatient Prescriptions: ??? acetaminophen (TYLENOL) 500 mg capsule, Take by mouth every 6 (six) hours as needed for pain., Disp: , Rfl: ??? ferrous sulfate 325 [...] mouth daily., Disp: , Rfl: OBJECTIVE BP 98/56 Pulse 76 Temp 36.8 ??C Resp 16 Ht 153 cm Wt 74.7 kg LMP 06/09/2018 BMI 31.93 kg/m?? General: Well-developed well-nourished gravid female in no apparent distress. Alert and oriented x3. Lungs: Clear to auscultation bilaterally with good inspiratory effort. No wheezing rhonchi or rales noted. Heart: Regular rate and rhythm without murmur. No JVD. No peripheral vascular disease. Abdomen: Gravid soft nontender positive bowel sounds. Fundal height at 28 cm. heart tones auscultated at 144. Presentation noted to be vertex by [place]. No hepatosplenomegaly. No right upper quadrant tenderness with palpation, no rebound, no guarding. Cervix: declined Extremities: No clubbing cyanosis or edema. Nontender bilaterally. DIAGNOSTICS 12/02/2018 3 hr glucose tolerance test: 86, 199, 147, 106 12/02/2018 Hemoglobin 10.2, Serology negative 12/25/2018 Liver function test: Pending 12/25/2018 Basic metabolic panel: Pending ASSESSMENT / PLAN 1 Intrauterine at 28w3d. - I suspect that her abdominal pain is musculoskeletal in nature. This does not seem to be gallbladder disease. She denies contractions or pelvic pressure. - I am checking liver function test and basic metabolic panel. I will contact patient with the results. - I recommend rest and hydration. I recommend the patient use [id number] Tylenol as well as heating pad to the area. I also discussed warm soaking bath for symptomatic relief. - If the patient's symptoms worsen or do not improve then I recommend she present to the hospital for evaluation including right upper quadrant ultrasound, cervical check, and NST as these were not performed today. 2 History of delivery at 36 weeks (2009) - I discussed the risk of delivery in this . - The patient declined 17-hydroxyprogesterone injections. 3 History of precipitous delivery (2014) - I discussed the risk of precipitous delivery in this with the patient. - Close observation in the??3rd trimester is??recommended. 4 History of A1 gestational diabetes - I discussed the risk of recurrent gestational diabetes in this . - Early diabetes screening is elevated at 174. - 3 hr glucose tolerance test was normal on 12/02/2018. 5 Chronic pain syndrome and fibromyalgia - [...] and a cool dark room, and sleep. - Problem list reviewed and updated. - I reviewed routine obstetrical precautions, recommendations and instructions with the patient including movement and kick count instructions. - I reviewed labor precautions with the patient with instructions for the patient to come infor decreased movement, suspected rupture of membranes, regular contraction pattern, vaginal bleeding or any other concerning symptoms. - Follow up in 1 week as scheduled or sooner as needed. Jhonny Enriquez MD Business Administration Instructor - Obstetrics and Gynecology [facility] ITY PROSPECTING OPERATOR HELPER documented in this encounter Plan of Treatment Upcoming Encounters Date Type Specialty Care Team Description 08/30/2022 Clinical Communication Admitting/Central Scheduling 09/02/2022 Comprehensive Visit Endocrinology Ricardo Winkler APRN, C.N.P., D.N.P. [address] [place] [id number] documented as of this encounter Procedures Procedure Name Priority Date/Time Associated Diagnosis Comme nts HEPATIC FUNCTION Routine 12/25/2018 3:56 PM Examination Prenat al Results for this PANEL, S GRAVITY PROSPECTING OPERATOR HELPER Other Normal procedure are i n Second the results Trimester section. BASIC METABOLIC Routine 12/25/2018 3:56 PM Examination Prenata l Results for this PANEL, S/P GRAVITY PROSPECTING OPERATOR HELPER Other Normal procedure are i n Second the results Trimester section. documented in this encounter Results (ABNORMAL) Basic metabolic panel (12/25/2018 3:56 PM GRAVITY PROSPECTING OPERATOR HELPER) Analysis Performed At Path logis Time Signature Potassium, S 4.2 3.6 - 5.2 12/25/2018 [facility] mmol/L 6:02 PM [facility] Sodium, S 140 135 - 145 12/25/2018 [facility] mmol/L 6:02 PM [facility] Chloride, S 102 98 - 107 12/25/2018 [facility] mmol/L 6:02 PM [facility] Bicarbonate, S 28 22 - 29 12/25/2018 [facility] mmol/L 6:02 PM [facility] Anion Gap 10 7 - 15 12/25/2018 [facility] 6:02 PM [facility] BUN (Blood Urea 7 6 - 21 12/25/2018 [facility] Nitrogen), S mg/dL 6:02 PM [facility] Creatinine 0.58 (L) 0.59 - 12/25/2018 [facility] 1.04 mg/dL 6:02 PM [facility] eGFR-Non >90 >=60 12/25/2018 [facility] Black/ mL/min/BSA 6:02 PM [facility] Comment: ----ADDITIONAL INFORMATION---- Estimated GFR calculated using the 2009 CKD_EPI creatinine equation. eGFR-Black/ >90 >=60 mL/min/BSA 2018 6:[address] [facility] Comment: ----ADDITIONAL INFORMATION---- Estimated GFR calculated using the 2009 CKD_EPI creatinine equation. Calcium, Total, S 9.8 8.6 - 10.0 mg/dL 12/25/2018 6 :02 PM [facility] Glucose, S 82 70 - 140 mg/dL 12/25/2018 6:02 PM [facility] Specimen Anatomical Collection Method Collection Time Receive d Time (Source) Location / / Volume Laterality Blood (Blood, 12/25/2018 3:56 PM 12/25/19 19 5:43 Venous) GRAVITY PROSPECTING OPERATOR HELPER PM [facility] Jhonny Enriquez M.D. LAB BLOOD ADD-ON Performing Organization Address City/State/ZIP Code Phon e Number [facility] [id number] [place] [address] LAB (ABNORMAL) Hepatic Function Panel (12/25/2018 3:56 PM [facility]) [facility] Method Time Signature Bilirubin, Total, S <0.2 <=1.2 12/25/2018 [facility] mg/dL 6:02 PM [facility] Bilirubin, Direct, S <0.2 0.0 - 0.3 12/25/2018 [facility] mg/dL 6:18 PM [facility] Aspartate 22 8 - 43 12/25/2018 [facility] Aminotransferase U/L 6:02 PM [facility] Alanine 15 7 - 45 12/25/2018 [facility] Aminotransferase U/L 6:02 PM [facility] Alkaline 103 35 - 104 12/25/2018 [facility] Phosphatase, S U/L 6:02 PM [facility] Albumin, S 3.8 3.5 - 5.0 12/25/2018 [facility] g/dL 6:02 PM [facility] Protein, Total, S 5.9 (L) 6.3 - 7.9 12/25/2018 [facility] g/dL 6:02 PM [facility] Specimen Anatomical Collection Method Collection Time Receive d Time (Source) Location / / Volume Laterality Blood (Blood, 12/25/2018 3:56 PM 12/25/19 19 5:43 Venous) GRAVITY PROSPECTING OPERATOR HELPER PM GRAVITY PROSPECTING OPERATOR HELPER Jhonny Enriquez M.D. LAB BLOOD ADD-ON Performing Organization Address City/State/ZIP Code Phon e Number [facility] [address] [place] [id number] LAB documented in this encounter Visit Diagnoses Diagnosis Examination Other Normal Pregna ncy Second Trimester (HCC) - Primary Strain Abdomen Wall Muscle Initial documented in this encounter Additional Health Concerns Assessment Noted Time PHQ-9 Depression Total Score: 13 12/04/2017 10:[address] documented as of this encounter Care Teams Clinic Manager Relationship Specialty Start Date End Date Yarelis Reyes M.D. PCP - General 05/08/17 01/03/212199 [address] [address] documented as of this encounter
--- OUTSIDE RECORDS SUMMARY | 2022-08-16 21:29 | XMS_ITS | Encounter Summary ---
:1985 Author Organization [facility] Address [address] [place] [address] Care Team Providers Name Role Phone Yarelis Reyes M.D. Primary Care Provider Reason for Visit Reason Comments URI started URI symptoms, pressu re, soreness right eye, yellow and green drainage for the past 12 days Appointment Request (Routine) - Closed Specialty Diagnoses / Procedures Referred By Contact Refer red To Contact Family Medicine Referral ID Status Reason Start Date Expiration Date Visits Requ ested Visits Authorized [id number] Closed 02/22/2019 02/22/2020 1 Encounter Details Date Type Department Care Team Description 02/23/2019 Office Visit Department of Family Zuleima mikeion Nasal Medicine, Yarelis Bravo, (Primary Dx) Clinic, in [place] [id number] [place] [phone] Social History Tobacco Use Types Packs/Day Years [...] do you attend faith or Never 2021 jew services? Do you [...] place to sleep or slept in a jail (including now)? Sex Assigned at Date Recorded Female 06/02/2018 2:38 PM CDT documented as of this encounter Last Filed Vital Signs Vital Sign Reading Time Taken Comments Blood Pressure 98/58 02/23/2019 10:09 AM CDT Pulse 88 02/23/2019 10:09 AM CDT Temperature 36.8 ??C (98.2 ??F) 02/23/2019 10:09 AM CDT Respiratory Rate 16 02/23/2019 10:09 AM CDT Oxygen Saturation - - Inhaled Oxygen Concentration - - Weight 75.3 kg (165 lb 14.3 oz) 02/23/2019 10:09 AM CDT Height 153 cm (5' 0.24) 02/23/2019 10:09 AM CDT Body Mass Index 32.15 02/23/2019 10:09 AM CDT documented in this encounter Progress Notes Yarelis Reyes M.D. - 02/23/2019 10:00 AM CDT CHIEF COMPLAINT/ REASON FOR VISIT Upper respiratory infection. HISTORY OF PRESENT ILLNESS Keily Ng is a 33 y.o. female who presents to the clinic today for upper respiratory infection. She is 37 weeks and she has been having some contractions. She feels like she has a cracked rib and it hurts to doing anything for the past 10 weeks. Baby is putting a lot of pressure on this area. She describes the pain as a burning pain. Keily also thinks she has a sinus infection, which has drained down her throat and caused bronchitis. She has pain and pressure in her face, mostly on the right. If she bends down, her head starts to pound. The sputum she is getting out is thick and green. She has not had fevers. She has been dealingwith this for 2 weeks. The patient denies any additional questions or concerns at this time. REVIEW OF SYSTEMS Please see HPI for pertinent positives, otherwise rest of ROS negative. CURRENT MEDICATIONS Current Outpatient Prescriptions Medication Sig Dispense Refill ??? acetaminophen (TYLENOL) 500 mg capsule Take by mouth every 6 (six) hours as needed for pain. ??? vit27,calcium/iron/FA (MULTIVITAMIN/MINERAL-) tablet Take 1 tablet by mouth daily. ??? albuterol (ACCUNEB) 2.5 mg /3 mL nebulizer solution Inhale 2.5 mg. ??? bisacodyl (DULCOLAX) 5 mg EC tablet Take 10 mg by mouth daily as needed for constipation. ??? ferrous sulfate 325 mg (65 mg iron) tablet Take 1 tablet (65 mg of iron total) by mouth daily. (Patient not taking: Reported on 02/03/2019 ) 60 tablet 3 ??? lidocaine (LIDODERM) 5 % Place 1 patch on the skin daily. Apply to painful area 12 hours per day, remove for 12 hours. (Patient not taking: Reported on 02/23/2019 ) 30 patch 0 ??? vitamin-iron fumarate-FA 28 mg iron- 800 mcg per tablet Take 1 tablet by mouth. No current facility-administered medications for this visit. ALLERGIES/CONTRAINDICATIONS Allergies Allergen Reactions ??? Bupropion Hcl Anxiety flush, anger flush, anger MEDICAL HISTORY Past Medical History: Diagnosis Date ??? Abnormal Pap Smear Personal History ??? Abuse Tobacco Smoking 06/27/2010 quit 2013 ??? Anemia ??? Anemia Iron Deficiency 12/03/2018 ??? Bipolar I Depressed (HCC) 10/22/2011 ??? Cervical Dysplasia Personal History 04/02/2010 ??? Depression Major Recurrent (HCC) 10/22/2011 Depressive disorder, major, recurrent episode ??? Diabetes Mellitus Gestational 02/15/2015 A1GDM, diet controlled ??? Fibromyalgia 03/27/2018 ??? Headache Tension Chronic 09/05/2014 ??? Liver Disease Fatty liver tissue ??? Migraine Headache ??? Obesity Body Mass Index 30-39.9 Adult 04/10/2018 ??? Pain Musculoskeletal NOS 11/18/2014 ??? Polycystic Ovary Syndrome 04/02/2010 ??? Subacute And Chronic Vaginitis 04/10/2018 recurrent bacterial vaginitis SURGICAL HISTORY Past Surgical History: Procedure Laterality Date ??? APPENDECTOMY 12/25/2012 ??? LAPAROSCOPIC APPENDECTOMY 12/25/2012 ??? LEEP PROCEDURE - LOOP ELECTRO EXCISION PROCEDURE 2006 ??? OTHER SURGICAL HISTORY 02/22/2007 Leep procedure PREVENTIVE SERVICES: Social History Substance Use Topics ??? Smoking status: Former Smoker Types: Cigarettes Start date: 11/24/1995 Quit date: 2015 ??? Smokeless tobacco: Former User Comment: Smoked throughout my childhood. Quit and restarted a couple times ??? Alcohol use Yes 1 Glasses of wine per week Comment: I dont drink often. Maybe twice a month VITAL SIGNS Vitals: 02/23/19 1009 BP: 98/58 Patient Position: Sitting Pulse: 88 Temp: 36.8 ??C Resp: 16 Height: 153 cm Weight: 75.3 kg Body mass index is 32.15 kg/m??. PHYSICAL EXAMINATION General: Patient is alert and oriented times three, in no acute distress, good hygiene and is dressed appropriately. HEENT: Tympanic membranes are normal bilaterally. Oropharynx is without erythema or exudate. Nasal mucosa is without injection. Neck is without adenopathy. Maxillary sinus tenderness, right greater than left. Lymph nodes: Not palpably enlarged and no nodules are palpated. Heart: Regular rate and rhythm without murmur. Lungs: Clear to auscultation. Extremities: Within normal limits. Skin: No rashes or suspicious lesions noted on exposed skin. ASSESSMENT / PLAN #1 Congestion Nasal versus acute sinusitis PLAN: At this time, I would recommend that she use Afrin nasal spray 2 sprays in each nostril twice daily for 5 days. She will keep me updated. #2 Follow up PLAN: The patient will contact the clinic with any new or worsening symptoms. This document serves as a record of services personally performed by Yarelis Baltazar MD. It was created on their behalf by Kenyetta Solo, a trained medical assisting program director. The creation of this record is based on the scribe's personal observations and the provider's statements to them. This document has been ch ecked and approved by the attending provider. documented in this encounter Plan of Treatment Upcoming Encounters Date Type Specialty Care Team Description 08/30/2022 Clinical Communication Admitting/Central Scheduling 09/02/2022 Comprehensive Visit Endocrinology Ricardo Winkler APRN, C.N.P., D.N.P. [address] [place] [phone] documented as of this encounter Visit Diagnoses Diagnosis Congestion Nasal - Primary documented in this encounter Additional Health Concerns Assessment Noted Time PHQ-9 Depression Total Score: 13 12/04/2017 10:[address] documented as of this encounter Care Teams Charge Master Analyst Relationship Specialty Start Date End Date Yarelis Reyes M.D. PCP - General 05/08/17 01/03/21 [address], [place] [address] documented as of this encounter
--- OUTSIDE RECORDS SUMMARY | 2022-08-16 21:29 | XMS_ITS | Encounter Summary ---
:1985 Author Organization [facility] Address [address] [place] [address] Care Team Providers Name Role Phone Yarelis Reyes M.D. Primary Care Provider Reason for Referral Outpatient (Routine) - Closed Specialty Diagnoses / Procedures Referred By Contact Refer red To Contact Obstetrics Jhonny Fisher [facility]. [facility] [address] [place] [address] Referral ID Status Reason Start Date Expiration Date Visits Requ ested Visits Authorized [id number] Closed 12/30/2018 12/30/2019 1 1 utpatient (Routine) - Closed Specialty Diagnoses / Procedures Referred By Contact Refer red To Contact Jhonny Sotelo M.D. [facility] Gy[facility] [address] [place] [address] Referral ID Status Reason Start Date Expiration Date Visits Requ ested Visits Authorized [id number] Closed 12/30/2018 12/30/2019 1 1 ESTATE LEGAL SECRETARY Reason for Visit Reason Comments Routine Visit 29 1/7 weeks Outpatient (Routine) - Closed Specialty Diagnoses / Procedures Referred By Contact Refer red To Contact Jhonny Sotelo M.D. [facility] Gynecology [address] [place] [address] Referral ID Status Reason Start Date Expiration Date Visits Requ ested Visits Authorized [id number] Closed 12/02/2018 12/02/2019 1 1 Encounter Details Date Type Department Care Team Description 12/30/2018 Routine Department of Jhonny Enriquez Examinat ion Other Normal Third Trimester (Primary Dx); Obstetrics and M.D. Anemia Iron D eficiency Gynecology in [place], [place] [address] [facility] [place] [phone] Social History Tobacco Use Types Packs/Day Years [...] or relatives? How often do you attend mandaen or Never 2021 christianity services? Do you belong to any clubs or No 01/25/2022 organizations such as mandaen groups, unions, fraternal or athletic groups, or [...] Sign Reading Time Taken Comments Blood Pressure 100/50 12/30/2018 1:05 PM REAL ESTATE LEGAL SECRETARY Pulse 68 12/30/2018 1:05 PM REAL ESTATE LEGAL SECRETARY Temperature - - Respiratory Rate 14 12/30/2018 1:05 PM REAL ESTATE LEGAL SECRETARY Oxygen Saturation - - Inhaled Oxygen Concentration - - Weight 74.1 kg (163 lb 5.8 oz) 12/30/2018 1:05 PM REAL ESTATE LEGAL SECRETARY Height 153 cm (5' 0.24) 12/30/2018 1:05 PM REAL ESTATE LEGAL SECRETARY Body Mass Index 31.65 12/30/2018 1:05 PM REAL ESTATE LEGAL SECRETARY documented in this encounter Progress Notes Jhonny Enriquez M.D. - 12/30/2018 1:15 PM CST CHIEF COMPLAINT / REASON FOR VISIT 1 Obstetrics office visit SUBJECTIVE Keily Ng is a 33 y.o. . Patient's last menstrual period was 06/09/2018. Her Estimated Date of Delivery: 03/16/19 determined by LMP consistent with 8 week ultrasound. Gestational age is 29w1d. She presents to the office today for follow up OB visit. Her is complicated by history of A1 gestational diabetes 2014, precipitous delivery 2014, delivery at 36 weeks 2009, chronic pain and??fibromyalgia, chronic vaginitis, precipitous delivery 2015, tension headache. Her the right-sided abdominal pain has resolved. She has no complaints. She reports active [...] mouth daily.,Disp: 60 tablet, Rfl: 3 ??? fluconazole (DIFLUCAN) 150 mg tablet, TAKE ONE TABLET BY MOUTH ONCE FOR ONE DOSE, Disp: , Rfl: 2 ??? lidocaine (LIDODERM) 5 %, Place 1 patch on the skin daily. Apply to painful area 12 hours per day, remove for 12 hours., Disp: 30 patch, Rfl: 0 ??? vit27,calcium/iron/FA (MULTIVITAMIN/MINERAL-) tablet, Take 1 tablet by mouth daily., Disp: , Rfl: OBJECTIVE BP (!) 100/50 Pulse 68 Resp 14 Ht 153 cm Wt 74.1 kg LMP 06/09/2018 BMI 31.65 kg/m?? General: Well-developed well-nourished gravid female in no apparent distress. Alert and oriented x3. Abdomen: Gravid soft nontender positive bowel sounds. Fundal height at 29 cm. heart tones auscultated at 140. Presentation noted to be vertex by [place]. Cervix: deferred Extremities: No clubbing cyanosis or edema. Nontender bilaterally. DIAGNOSTICS 12/02/2018 3 hr glucose tolerance test: 86, 199, 147, 106 12/02/2018 Hemoglobin 10.2, Serology negative 12/25/2018 Liver function test: Normal 12/25/2018 Basic metabolic panel: Normal ASSESSMENT / PLAN 1 Intrauterine at 29w1d. - Adacel immunization is given to the patient today per protocol. - The patient declines influenza immunization. - I have ordered a growth ultrasound. The patient will schedule. 2 History of delivery at 36 weeks [...] 50% spent in counseling. Jhonny Enriquez MD Office Electrician - Obstetrics and Gynecology [facility] ESTATE LEGAL SECRETARY documented in this encounter Plan of Treatment Upcoming Encounters Date Type Specialty Care Team Description 08/30/2022 Clinical Communication Admitting/Central Scheduling 09/02/2022 Comprehensive Visit Endocrinology Ricardo Winkler APRN, C.N.P., D.N.P. [address] [place] [phone] Scheduled Referrals Name Type Priority Associated Order Schedule Diagnoses Obstetrics and Outpatient Referral Routine Expect ed: Gynecology office 01/13/2019 visit (clinic) (Approximate) , Expires: 12/30/2021 Obstetrics and Outpatient Referral Routine Expect ed: Gynecology office 01/27/2019 visit (clinic) (Approximate) , Expires: 12/30/2021 documented as of this encounter Results (ABNORMAL) CBC without Differential (01/18/2019 2:04 PM REAL ESTATE LEGAL SECRETARY) [facility] Time Signature Hemoglobin 10.1 (L) 11.6 - 01/18/2019 [facility] ER 15.0 g/dL 2:08 PM REAL ESTATE LEGAL SECRETARY [facility] Hematocrit 31.7 (L) 35.5 - 01/18/2019 [facility] 44.9 % 2:[address] [facility] Erythrocytes 3.23 (L) 3.92 - 01/18/2019 [facility] 5.13 2:08 PM [facility] x10(12)/L [facility] MCV 98.1 (H) 78.2 - 01/18/2019 [facility] 97.9 fL 2:[address] [facility] RBC Distrib Width 14.5 12.2 - 01/18/2019 [facility] 16.1 % 2:[address] [facility] Platelet Count 300 157 - 371 01/18/2019 [facility] x10(9)/L 2:[address] [facility] Leukocytes 16.0 (H) 3.4 - 9.6 01/18/2019 [facility] x10(9)/L 2:[address] [facility] Specimen Anatomical Collection Method Collection Time Receive d Time (Source) Location / / Volume Laterality Blood (Blood, 01/18/2019 2:04 PM 01/18/20 19 2:05 Venous) REAL ESTATE LEGAL SECRETARY PM REAL ESTATE LEGAL SECRETARY Jhonny Enriquez M.D. LAB BLOOD ADD-ON Performing Organization Address City/State/ZIP Code Phon e Number [facility] 300 [facility] [place] [address] LAB US OB Follow-up and or Growth Perez (01/18/2019 2:03 PM REAL ESTATE LEGAL SECRETARY) Anatomical Region Laterality Modality Body, Ultrasound OB RST LOS, Ultrasound ARZ LOS N/A Ultrasound Specimen (Source) Anatomical Collection Method Collection Time Re ceived Time Location / / Volume Laterality 01/18/2019 2:22 PM REAL ESTATE LEGAL SECRETARY Impressions 01/18/2019 2:27 PM REAL ESTATE LEGAL SECRETARY IMPRESSION: 1. ??Intrauterine at 31 weeks 6 day with positive cardiac activity. 2. ??Estimated weight 1842 g which is 37th percentile for growth. 3. ??Normal fluid level with maximum lina tical pocket 4.5 cm. 4. ??Anterior placenta without placenta previa. 5. ?? right renal pelviectasis at 8 mm. 6. ??No other anomalies noted. Jhonny Enriquez MD Narrative 01/18/2019 2:27 PM REAL ESTATE LEGAL SECRETARY EXAM: US OB FOLLOW-UP AND OR GROWTH [...] %ile, 8.0 cm consistent with 32 w [place] 1 day HC 42 %ile, 29.7 cm consistent with 33 w eeks 0 day AC 52 %ile, 27.3 cm consistent with 31 w pe[place] 3 day FL 41 %ile, 6.2 cm [...] %ile, 8.0 cm consistent with 32 w peoria 1 day HC 42 %ile, 29.7 cm consistent with 33 w eeks 0 day AC 52 %ile, 27.3 cm consistent with 31 w pe[place] 3 day FL 41 %ile, 6.2 cm [...] Trimester (HCC) - Primary Anemia Iron Deficiency Examination Other Normal Pregna ncy Third Trimester (HCC) Anemia Iron Deficiency documented in this encounter Additional Health Concerns Assessment Noted Time PHQ-9 Depression Total Score: 13 12/04/2017 10:[address] documented as of this encounter Care Teams Validation Technician Relationship Specialty Start Date End Date Yarelis Reyes M.D. PCP - General 05/08/17 01/03/[address] [facility] [place] [phone] documented as of this encounter
--- OUTSIDE RECORDS SUMMARY | 2022-08-16 21:29 | XMS_ITS | Encounter Summary ---
:1985 Author Organization [facility] Address [address] [place] [address] Care Team Providers Name Role Phone Yarelis Reyes M.D. Primary Care Provider [phone] Encounter Details Date Type Department Care Team Description 02/19/2019 Orders Only Department of Obstetrics and Jhonny Enriquez M.D. Gynecology in [place], [place] [address] [place] [phone] Social History Tobacco Use [...] do you attend religious or Never 2021 hinduism services? Do you belong to any clubs or No 01/25/2022 organizations such as religious groups, unions, fraternal or athletic groups, or [...] Ricardo Winkler, SILVIO, C.N.P., D.N.P. [address] [place] [address] documented as of this encounter Visit Diagnoses Not on filedocumented in this encounter Additional Health Concerns Assessment Noted Time PHQ-9 Depression Total Score: 13 12/04/2017 10:[address] documented as of this encounter Care Teams Retail District Manager Relationship Specialty Start Date End Date Yarelis Reyes M.D. PCP - General 05/08/17 01/03/[address] [place] [phone] documented as of this encounter
--- OUTSIDE RECORDS SUMMARY | 2022-08-16 21:30 | XMS_ITS | Encounter Summary ---
:1985 Author Organization [facility] Address [address] [place] [address] Care Team Providers Name Role Phone Yarelis Reyes M.D. Primary Care Provider [phone] Encounter Details Date Type Department Care Team Description 10/06/2018 Hospital Encounter Department of Jhonny Enriquez Examin ation Other Normal Second Trimester; Laboratory Medicine MDuane Pregnanc y With Personal History Gestational Diabetes Mellitus in [place], [place] [address] [place] [phone] Social History Tobacco Use Types Packs/Day Years [...] do you attend protestant or Never 2021 episcopalian services? Do you belong to any clubs [...] place to sleep or slept in a custodial (including now)? Sex Assigned at Date Recorded Female 06/02/2018 2:38 PM CDT documented as of this encounter Medications at Time of Discharge Medication Sig Dispensed Refills Start Date End Date acetaminophen (TYLENOL) 500 Take by mouth 0 mg capsule every 6 (six) hours as needed for pain. albuterol (ACCUNEB) 2.5 mg Inhale 2.5 mg. 0 07/2704/07/2019 /3 mL nebulizer solution cyclobenzaprine (FLEXERIL) Take 1 tablet (10 30 tablet 0 12/25/2018 10 mg tablet mg total) by mouth at bedtime as needed for muscle spasms. Take 1 tablet by 0 03/08/20 19 vit27,calcium/iron/FA mouth daily. (MULTIVITAMIN/MINERAL-PRENA JAMILAH) tablet documented as of this encounter Plan of Treatment Upcoming Encounters Date Type Specialty Care Team Description 08/30/2022 Clinical Communication Admitting/Central Scheduling 09/02/2022 Comprehensive Visit Endocrinology Ricardo Winkler APRN, C.N.P., D.N.P. [address] [place] [phone] documented as of this encounter Procedures Procedure Name Priority Date/Time Associated Diagnosis Comme nts GLUCOSE MELE, 1HR, Routine 10/06/2018 9:22 AM Examination Prena jamilah Results for this S/P MORTAR MAKER Other Normal procedure are i n Second the results Trimester section. With Personal History Gestational Diabetes Mellitus documented in this encounter Results (ABNORMAL) Glucose Tolerance Test, 1 hour (10/06/2018 9:22 AM MORTAR MAKER) P athologist Signature Glucose Mele, 1 174 (H) <130 mg/dL 10/06/2018 [facility] hr, S 1:11 PM MORTAR MAKER [facility] Specimen Anatomical Collection Method Collection Time Receive d Time (Source) Location / / Volume Laterality Blood (Blood, 10/06/2018 9:22 AM 10/06/20 18 1:01 Venous) MORTAR MAKER PM MORTAR MAKER Jhonny Enriquez M.D. LAB BLOOD NON ADD-ON Performing Organization Address City/State/ZIP Code Phon e Number [facility] [address] [place] [address] LAB documented in this encounter Visit Diagnoses Diagnosis Examination Other Normal Pregna ncy Second Trimester (HCC) With Personal History Gestatio nal Diabetes Mellitus (HCC) documented in this encounter Additional Health Concerns Assessment Noted Time PHQ-9 Depression Total Score: 13 12/04/2017 10:[address] documented as of this encounter Care Teams Breaker Mechanic Relationship Specialty Start Date End Date Yarleis Reyes M.D. PCP - General 05/08/17 01/03/[address] [place] [phone] documented as of this encounter
--- OUTSIDE RECORDS SUMMARY | 2022-08-16 21:30 | XMS_ITS | Encounter Summary ---
:1985 Author Organization [facility] Address [address] [place] [address] Care Team Providers Name Role Phone Yarelis Reyes M.D. Primary Care Provider Reason for Visit Reason Comments Gynecologic Exam patient having itching and b urning in vaginal area with wiping along with slight mucus white disc harge x 2 days Appointment Request (Routine) - Closed Specialty Diagnoses / Procedures Referred By Contact Refer red To Contact Family Medicine Referral ID Status Reason Start Date Expiration Date Visits Requ ested Visits Authorized [id number] Closed 08/04/2018 08/04/2019 1 Encounter Details Date Type Department Care Team Description 08/04/2018 Office Visit Department of Family [place]wey Vag initis (Primary Dx) Medicine, Yarelis Bravo, [facility], in [place] [address] [phone] Social History Tobacco Use Types Packs/Day [...] do you attend yazidi or Never 2021 hoahaoism services? Do you [...] Sign Reading Time Taken Comments Blood Pressure 102/58 08/04/2018 8:25 AM CDT Pulse 56 08/04/2018 8:25 AM CDT Temperature 36.4 ??C (97.5 ??F) 08/04/2018 8:25 AM CDT Respiratory Rate 20 08/04/2018 8:25 AM CDT Oxygen Saturation - - Inhaled Oxygen Concentration - - Weight 67.8 kg (149 lb 5.8 oz) 08/04/2018 8:25 AM CDT Height 153 cm (5' 0.24) 08/04/2018 8:25 AM CDT Body Mass Index 28.94 08/04/2018 8:25 AM CDT documented in this encounter Progress Notes Yarelis Reyes M.D. - 08/04/2018 8:30 AM CDT SUBJECTIVE CHIEF COMPLAINT / REASON FOR VISIT Keily Ng is a 32 y.o. female who presents for evaluation of Gynecologic Exam (patient having itching and burning in vaginal area with wiping along with slight mucus white discharge x 2 days). HISTORY OF PRESENT ILLNESS Keily comes in with above history. She is 8 weeks . She has no STD concerns but wants to make sure. OBJECTIVE BP 102/58 Pulse (!) 56 Temp 36.4 ??C (Temporal) Resp 20 Ht 153 cm Wt 67.8 kg LMP 06/09/2018 ? No BMI 28.94 kg/m?? PHYSICAL EXAM GENERAL: Patient is alert and oriented, well groomed and appropriately dressed. EXTREMITIES: Normal without edema. SKIN: No rashes or unusual lesions on exposed skin. GENITALIA: The external genitalia is without lesion. Cervix is normal in appearance. She has a largeamount of white material in the vaginal vault consistent with recent use of vaginal cream. This is wiped away with a swab and sample is taken for GC chlamydia and vaginitis panel. ASSESSMENT / PLAN #1 Vaginitis Above testing is pending. Will treat according to results. - Vaginitis Panel - [facility] - Chlamydia / Gonorrhoeae Amplified RNA Yarelis Reyes M.D. documented in this encounter Plan of Treatment Upcoming Encounters Date Type Specialty Care Team Description 08/30/2022 Clinical Communication Admitting/Central Scheduling 09/02/2022 Comprehensive Visit Endocrinology Ricardo Winkler APRN, C.N.P., D.N.P. [address] [place] [phone] documented as of this encounter Procedures Procedure Name Priority Date/Time Associated Diagnosis Comme nts VAGINITIS PANEL Routine 08/04/2018 9:07 AM Vaginitis Result s for this CDT procedure are i n the results section. CHLAMYDIA/GONORRHOE Routine 08/04/2018 9:07 AM Vaginitis Re sults for this AE AMPLIFIED RNA CDT procedure a re in the results section. documented in this encounter Results Chlamydia / Gonorrhoeae Amplified RNA (08/04/2018 9:07 AM CDT) [facility] Method Time Signature Source VAGINA 08/05/2018 [facility] 12:28 PM CDT [facility] Chlamydia Negative Negative 08/05/2018 [facility] trachomatis 12:28 PM CDT [facility] amplified RNA [facility] Comment: ----ADDITIONAL INFORMATION---- This report is intended for use in clini faviola monitoring and management of patients. It is not in tended for use in medical-legal applications. Source VAGINA 08/05/2018 12:[address] [facility]T [facility] Neisseria gonorrhoeae Negative Negative 08/05/2018 12:28 P M [facility] amplified RNA [facility] Comment: ----ADDITIONAL INFORMATION---- This report is intended for use in clini faviola monitoring and management of patients. It is not in tended for use in medical-legal applications. Specimen Anatomical Collection Method Collection Time Receive d Time (Source) Location / / Volume Laterality Varies 08/04/2018 9:07 AM 8 2:05 (Cervix/Endocerv CDT PM CDT ix) Yarelis Reyes M.D. LAB MICROBIOLOGY - GEN ERAL ORDERABLES Performing Organization Address City/State/ZIP Code Phon e Number [facility] [address] [place] [address] LAB Vaginitis Panel - [facility] (08/04/2018 9:07 AM CDT) [facility] [employer] Method Time Signature Francia species, Negative Negative 08/04/2018 [facility] DNA 10:47 AM CDT [facility] [place] [facility] Gardnerella Negative Negative 08/04/2018 [facility] vaginalis, DNA 10:47 AM CDT [facility] [employer] [place] [facility] Trichomonas Negative Negative 08/04/2018 [facility] vaginalis, DNA 10:47 AM CDT [facility] Specimen Anatomical Collection Method Collection Time Receive d Time (Source) Location / / Volume Laterality Swab (Vagina) 08/04/2018 9:07 AM 08/04/20 18 9:56 CDT AM CDT Yarelis Reyes M.D. LAB MICROBIOLOGY - GEN ERAL ORDERABLES Performing Organization Address City/State/ZIP Code Phon e Number [facility] [address] [place] [address] [place] [facility] [address] [place] [address], [facility] [place] [facility] documented in this encounter Visit Diagnoses Diagnosis Vaginitis - Primary documented in this encounter Additional Health Concerns Assessment Noted Time PHQ-9 Depression Total Score: 13 12/04/2017 10:[address] documented as of this encounter Care Teams Truss Designer Relationship Specialty Start Date End Date Yarelis Reyes M.D. PCP - General 05/08/17 01/03/21 [address] [facility] [place] [phone] documented as of this encounter
--- OUTSIDE RECORDS SUMMARY | 2022-08-16 21:30 | XMS_ITS | Encounter Summary ---
:1985 Author Organization [facility] Address [address] [place] [address] Care Team Providers Name Role Phone Yarelis Reyes M.D. Primary Care Provider [phone] Reason for Referral Outpatient (Routine) - Closed Specialty Diagnoses / Procedures Referred By Contact Refer red To Contact Obstetrics and Jhonny Enriquez M.D. [facility] [address] [place] [address] Referral ID Status Reason Start Date Expiration Date Visits Requ ested Visits Authorized [id number] Closed 12/02/2018 12/02/2019 1 1 TY DIRECTOR OF FINANCE Reason for Visit Reason Comments Routine Visit 25 1/7 weeks Outpatient (Routine) - Closed Specialty Diagnoses / Procedures Referred By Contact Refer red To Contact Obstetrics Jhonny Fisher M.D. [facility] [address] [place] [address] Referral ID Status Reason Start Date Expiration Date Visits Requ ested Visits Authorized [id number] Closed 11/04/2018 11/04/2019 1 1 Encounter Details Date Type Department Care Team Description 12/02/2018 Routine Department of Jhonny Enriquez Examinat ion Other Normal Second Trimester (Primary Dx); Obstetrics and MAmarisDAmaris Wit h Personal History Gestational Diabetes Mellitus; Gynecology in [place], [place] [address] [place] [phone] Social History Tobacco Use Types Packs/Day Years [...] do you attend methodist or Never 2021 baptism services? Do you [...] Sign Reading Time Taken Comments Blood Pressure 82/42 12/02/2018 9:03 AM DEPUTY DIRECTOR OF FINANCE Pulse 72 12/02/2018 9:03 AM DEPUTY DIRECTOR OF FINANCE Temperature - - Respiratory Rate 16 12/02/2018 9:03 AM DEPUTY DIRECTOR OF FINANCE Oxygen Saturation - - Inhaled Oxygen Concentration - - Weight 71.1 kg (156 lb 12 oz) 12/02/2018 9:03 AM DEPUTY DIRECTOR OF FINANCE Height 153 cm (5' 0.24) 12/02/2018 9:03 AM DEPUTY DIRECTOR OF FINANCE Body Mass Index 30.37 12/02/2018 9:03 AM DEPUTY DIRECTOR OF FINANCE documented in this encounter Progress Notes Jhonny Enriquez M.D. - 12/02/2018 9:15 AM CST CHIEF COMPLAINT / REASON FOR VISIT 1 Obstetrics office visit SUBJECTIVE Keily Ng is a 33 y.o. . Patient's last menstrual period was 06/09/2018. Her Estimated Date of Delivery: 03/16/19 determined by LMP consistent with 8 week ultrasound. Gestational age is 25w1d. She presents to the office today for follow up OB visit. Her is complicated by history of A1 gestational diabetes 2014, precipitous delivery 2014, delivery at 36 weeks 2009, chronic pain and??fibromyalgia, chronic vaginitis, precipitous delivery 2014, tension headache. She has no complaints. She reports positive movement. She denies leaking of fluid or vaginal bleeding. She denies cramping or contractions. She denies pelvic pressure. She denies difficulty urinating. She denies current headache. No vision changes. She denies depression symptoms. ALLERGIES Allergies Allergen Reactions ??? Bupropion Hcl Anxiety flush, anger MEDICATIONS Current Outpatient Prescriptions: ??? acetaminophen (TYLENOL) 500 mg capsule, Take by mouth every 6 (six) hours as needed for pain., Disp: , Rfl: ??? cyclobenzaprine (FLEXERIL) 10 mg tablet, Take 1 tablet (10 mg total) by mouth at bedtime as needed for muscle spasms. (Patient not taking: Reported on 09/30/2018 ), Disp: 30 tablet, Rfl: 0 ??? fluconazole (DIFLUCAN) 150 mg tablet, Take 1 tablet (150 mg total) by mouth every third day as needed (yeast infection). Repeat in 3 days if symptoms persist., Disp: 2 tablet, Rfl: 0 ??? lidocaine (LIDODERM) 5 %, Place 1 patch on the skin daily. Apply to painful area 12 hours per day, remove for 12 hours., Disp: 30 patch, Rfl: 0 ??? vit27,calcium/iron/FA (MULTIVITAMIN/MINERAL-) tablet, Take 1 tablet by mouth daily., Disp: , Rfl: OBJECTIVE BP (!) 82/42 Pulse 72 Resp 16 Ht 153 cm Wt 71.1 kg LMP 06/09/2018 BMI 30.37 kg/m?? General: Well-developed well-nourished gravid female in no apparent distress. Alert and oriented x3. Abdomen: Gravid soft nontender positive bowel sounds. Fundal height at 25 cm. heart tones auscultated at 150. Cervix: deferred Extremities: No clubbing cyanosis or edema. Nontender bilaterally. DIAGNOSTICS 10/06/2018 Glucose screen: 174 12/02/2018 3 hr glucose tolerance test: Pending 12/02/2018 Hemoglobin: Pending, Serology: Pending ASSESSMENT / PLAN 1 Intrauterine at 25w1d. 2 History of delivery at 36 weeks [...] 174. - 3 hr glucose tolerance test is being performed today. 5 Chronic pain syndrome and fibromyalgia - [...] Depression precautions in are reviewed the patient. 8 Tension headaches - Pain control for headache??in is similar to when non-, except for use of NSAIDs. - I discussed the use of Tylenol. - I discussed the use of Fioricet. - I discussed use of Excedrin migraine. - Symptomatic relief measures are [...] other concerning symptoms. - Follow up in 3 weeks. Jhonny Enriquez MD Climatology Professor - Obstetrics and Gynecology [facility] TY DIRECTOR OF FINANCE documented in this encounter Plan of Treatment Upcoming Encounters Date Type Specialty Care Team Description 08/30/2022 Clinical Communication Admitting/Central Scheduling 09/02/2022 Comprehensive Visit Endocrinology Ricardo Winkler APRN, C.N.P., D.N.P. [address] [place] [phone] Scheduled Referrals Name Type Priority Associated Order Schedule Diagnoses Obstetrics and Outpatient Referral Routine Expect ed: Gynecology office 12/30/2018 visit (clinic) (Approximate) , Expires: 12/02/2021 documented as of this encounter Procedures Procedure Name Priority Date/Time Associated Diagnosis Comme nts SYPHILIS TOTAL AB Routine 12/02/2018 9:58 AM Examination Prena jamilah Results for this W/ REFLEX S DEPUTY DIRECTOR OF FINANCE Other Normal procedure are i n Second the results Trimester section. With Personal History Gestational Diabetes Mellitus HEMOGLOBIN, B Routine 12/02/2018 9:58 AM Examination Results for this DEPUTY DIRECTOR OF FINANCE Other Normal procedure are i n Second the results Trimester section. With Personal History Gestational Diabetes Mellitus documented in this encounter Results Syphilis IgG Antibody with Reflex (12/02/2018 9:58 AM DEPUTY DIRECTOR OF FINANCE) athologist Signature Syphilis IgG Negative Negative 12/03/2018 [facility] Ab, S 12:32 PM DEPUTY DIRECTOR OF FINANCE [facility] Comment: No serologic evidence of exposu re to syphilis. Specimen Anatomical Collection Method Collection Time Receive d Time (Source) Location / / Volume Laterality Blood (Blood, 12/02/2018 9:58 AM 12/03/19 19 Venous) DEPUTY DIRECTOR OF FINANCE 11:02 AM DEPUTY DIRECTOR OF FINANCE Jhonny Enriquez M.D. LAB BLOOD ADD-ON Performing Organization Address City/State/ZIP Code Phon e Number [facility]- [address] [place] [address], [place] [phone] [place] [facility] (ABNORMAL) Hemoglobin (12/02/2018 9:58 AM DEPUTY DIRECTOR OF FINANCE) athologist Signature Hemoglobin 10.2 (L) 11.6 - 15.0 12/02/2018 [facility] g/dL 10:14 AM [facility] Specimen Anatomical Collection Method Collection Time Receive d Time (Source) Location / / Volume Laterality Blood (Blood, 12/02/2018 9:58 AM 12/02/19 19 9:58 Venous) DEPUTY DIRECTOR OF FINANCE AM DEPUTY DIRECTOR OF FINANCE Jhonny Enriquez M.D. LAB BLOOD ADD-ON Performing Organization Address City/State/ZIP Code Phon e Number [facility] [address] [place] [address] LAB documented in this encounter Visit Diagnoses Diagnosis Examination Other Normal Pregna ncy Second Trimester (HCC) - Primary With Personal History Gestatio nal Diabetes Mellitus (HCC) Fibromyalgia documented in this encounter Additional Health Concerns Assessment Noted Time PHQ-9 Depression Total Score: 13 12/04/2017 10:[address] documented as of this encounter Care Teams Complaint Evaluation Officer Relationship Specialty Start Date End Date Yarelis Reyes M.D. PCP - General 05/08/17 01/03/[address] [place] [phone] documented as of this encounter
--- OUTSIDE RECORDS SUMMARY | 2022-08-16 21:30 | XMS_ITS | Encounter Summary ---
:1985 Author Organization [facility] Address [address] [place] [address] Care Team Providers Name Role Phone Yarelis Reyes M.D. Primary Care Provider [phone] Encounter Details Date Type Department Care Team Description 08/10/2018 Hospital Encounter Department of Jhonny Enriquez Pregna ncy With Personal History Gestational Diabetes Mellitus; Radiology in [place] Examination Pre Other Normal First Trimester; [place], [place] Obesity Body Mass Index 30-3 9.9 Adult [address] [facility] [phone] Social History Tobacco Use Types Packs/Day Years [...] do you attend worship or Never 2021 adventist services? Do you [...] or slept in a mcc (including now)? Sex Assigned at Date Recorded Female 06/02/2018 2:38 PM CDT documented as of this encounter Medications at Time of Discharge Medication Sig Dispensed Refills Start Date End Date albuterol (ACCUNEB) 2.5 0 07/28/2018 0 08/12/2018 mg /3 mL nebulizer solution albuterol (ACCUNEB) 2.5 Inhale 2.5 mg. 0 07/27/20 18 04/07/2019 mg /3 mL nebulizer solution amoxicillin (AMOXIL) 500 0 07/24/2018 08/12/2018 mg capsule Take 1 tablet by 0 03/08/20 19 vit27,calcium/iron/FA mouth daily. (MULTIVITAMIN/MINERAL-PRE CARLIE) tablet documented as of this encounter Plan of Treatment Upcoming Encounters Date Type Specialty Care Team Description 08/30/2022 Clinical Communication Admitting/Central Scheduling 09/02/2022 Comprehensive Visit Endocrinology Ricardo Winkler, SILVIO, C.N.P., D.N.P. [address] [place] [address] documented as of this encounter Procedures Procedure Name Priority Date/Time Associated Comments Diagnosis US OB FIRST RAD - Routine 08/10/2018 1:42 With Results f or this TRIMESTER (most inpatients PM CDT Personal History procedu re are in and all Gestational the results outpatients) Diabetes Mellitu s section. Examination Other Normal First Trimester Obesity Body Mass Index 30-39.9 Adult documented in this encounter Results US OB First Trimester (08/10/2018 1:42 PM CDT) Anatomical Region Laterality Modality Body, Ultrasound OB RST LOS, Ultrasound ARZ LOS N/A Ultrasound Specimen (Source) Anatomical Collection Method Collection Time Re ceived Time Location / / Volume Laterality 08/10/2018 3:01 PM CDT Impressions 08/10/2018 3:04 PM CDT IMPRESSION: ??1. ??Intrauterine at 8 week 3 day. ??Positive cardiac activity. 2. ??EDC by today's ultrasound is 2018 which is consistent with LMP dating. 3. ??Embryo, cardiac activity, and yolk sac visualized. 4. ??No adnexal masses or free fluid not ed. Jhonny Enriquez MD Narrative 08/10/2018 3:04 PM CDT EXAM: US OB FIRST TRIMESTER COMPARISON: None FINDINGS: Gestational age and JOSE by LMP or OB/EHR assignment: ??8 week 6 day, JOSE 03/16/2019. Age and JOSE by current ultrasound measur ements: ??8 week 3 day, JOSE 03/19/2019. Intra-uterine: Embryo, Gestational sac, and yolk sac. heart rate: ??170 bpm. Maternal ovaries/adnexae: Normal. A righ t and left ovaries appeared normal. Yolk sac: ??0.31 cm [place]-rump length: ??1.86 cm consistent with 8 week 3 day. Procedure Note Jhonny Enriquez M.D. - 08/10/2018Formatti ng of this note might be different from the original. EXAM: US OB FIRST TRIMESTER COMPARISON: None FINDINGS: Gestational age and JOSE by LMP or OB/EHR assignment: 8 week 6 day, JOSE 03/16/2019. Age and JOSE by current ultrasound measur ements: 8 week 3 day, JOSE 03/19/2019. Intra-uterine: Embryo, Gestational sac, and yolk sac. heart rate: 170 bpm. Maternal ovaries/adnexae: Normal. A righ t and left ovaries appeared normal. Yolk sac: 0.31 cm Ualapue-rump length: 1.86 cm consistent wi th 8 week 3 day. IMPRESSION: 1. Intrauterine at 8 week 3 day. Positive cardiac activity. 2. EDC by today's ultrasound is 03/19/20 19 which is consistent with LMP dating. 3. Embryo, cardiac activity, and yolk sa c visualized. 4. No adnexal masses or free fluid noted . Jhonny Enriquez MD Jhonny Enriquez M.D. IMG OB US PROCEDURES documented in this encounter Visit Diagnoses Diagnosis With Personal History Gestatio nal Diabetes Mellitus (HCC) Examination Other Normal Pregna ncy First Trimester (HCC) Obesity Body Mass Index 30-39.9 Adult documented in this encounter Additional Health Concerns Assessment Noted Time PHQ-9 Depression Total Score: 13 12/04/2017 10:[address] documented as of this encounter Care Teams Switchboard Wire Worker Helper Relationship Specialty Start Date End Date Yarelis Reyes M.D. PCP - General 05/08/17 01/03/21 [address] [address] documented as of this encounter
--- OUTSIDE RECORDS SUMMARY | 2022-08-16 21:30 | XMS_ITS | Encounter Summary ---
:1985 Author Organization [facility] Address [address] [place] [address] Care Team Providers Name Role Phone Yarelis Reyes M.D. Primary Care Provider Encounter Details Date Type Department Care Team Description 10/29/2018 Orders Only Department of Obstetrics [place] and Gynecology in [place], [place] [address] [facility] [place] [phone] [place] [phone] Social History Tobacco Use Types Packs/Day Years [...] do you attend presybeterian or Never 2021 confucianist services? Do you [...] slept in a senior care (including now)? Sex Assigned at Date Recorded Female 06/02/2018 2:38 PM CDT documented as of this encounter Plan of Treatment Upcoming Encounters Date Type Specialty Care Team Description 08/30/2022 Clinical Communication Admitting/Central Scheduling 09/02/2022 Comprehensive Visit Endocrinology Ricardo Winkler, SILVIO, C.N.P., D.N.P. [address] [place] [address] documented as of this encounter Visit Diagnoses Not on filedocumented in this encounter Additional Health Concerns Assessment Noted Time PHQ-9 Depression Total Score: 13 12/04/2017 10:23 AM C documented as of this encounter Care Teams Contract Clerk Automobile Relationship Specialty Start Date End Date Yarelis Reyes M.D. PCP - General 05/08/17 01/03/21 [address] [place] [address] documented as of this encounter
--- OUTSIDE RECORDS SUMMARY | 2022-08-16 21:30 | XMS_ITS | Encounter Summary ---
:1985 Author Organization [facility] Address [address] [place] [address] Care Team Providers Name Role Phone Yarelis Reyes M.D. Primary Care Provider Reason for Visit Reason Onset Date Comments Headache for 11 days and 09/01/2018 Encounter Details Date Type Department Care Team Description 09/01/2018 Clinical Communication Department of Eric Hea dache for 11 days Family Medicine, enzinski, and pregnan t [facility], in [place], [place] [address] [place] [phone] Social History Tobacco Use Types Packs/Day Years [...] or relatives? How often do you attend advent or Never 2021 amish services? Do you belong to any clubs or No 01/25/2022 organizations such as advent groups, unions, fraternal or athletic groups, or [...] or slept in a usp (including now)? Sex Assigned at Date Recorded Female 06/02/2018 2:38 PM CDT documented as of this encounter Miscellaneous Notes Telephone Encounter - Aleena Haro L.PAmarisN. - 09/01/2018 2:21 PM CDT Patient taking Tylenol and drinking Pedialyte.Nothing is helping. Patient is able to come in today. Scheduled for 3:30 today. Telephone Encounter - Yarelis Reyes M.D. - 09/01/2018 1:40 PM CDT Please find out what she has been doing for her headache. Encourage excellent hydration. Tylenol is acceptable during . I can see her later today if she would like. Telephone Encounter - Liz Garcia L.P.N. - 09/01/2018 11:26 AM CDT Please advise Telephone Encounter - Ninoska Rivas - 09/01/2018 11:08 AM CDT Pt's called and has had a headache for the pass 11 days and would like to see Dr. Baltazar, but the only opening was on 09/07 and she doesn't feel she can wait that long and was wondering if she could get in earlier, she is also 12 weeks . Please call pt and advise documented in this encounter Plan of Treatment Upcoming Encounters Date Type Specialty Care Team Description 08/30/2022 Clinical Communication Admitting/Central Scheduling 09/02/2022 Comprehensive Visit Endocrinology Ricardo Winkler, SILVIO, C.N.P., D.N.P. [address] [place] [address] documented as of this encounter Visit Diagnoses Not on filedocumented in this encounter Additional Health Concerns Assessment Noted Time PHQ-9 Depression Total Score: 13 12/04/2017 10:[address] documented as of this encounter Care Teams Clinical Documentation Nurse Relationship Specialty Start Date End Date Yarelis Reyes M.D. PCP - General 05/08/17 01/03/21 [address] [place] [phone] documented as of this encounter
--- OUTSIDE RECORDS SUMMARY | 2022-08-16 21:30 | XMS_ITS | Encounter Summary ---
:1985 Author Organization [facility] Address [address] [place] [address] Care Team Providers Name Role Phone Yarelis Reyes M.D. Primary Care Provider [phone] Encounter Details Date Type Department Care Team Description 08/31/2018 Clinical Communication Department of Natalya Singh Obstetrics and R.N. Gynecology in [address] [address] [place], [place] [phone] (Wo rk) [address] [phone] Social History Tobacco Use Types Packs/Day Years [...] do you attend yarsanism or Never 2021 christianity services? Do you [...] Telephone Encounter - Natalya Singh R.N. - 08/31/2018 1:22 PM CDT Keily was notified. Telephone Encounter - Jhonny Enriquez M.D. - 08/31/2018 12:27 PM CDT If her headache is not improving or if it worsens then I recommend she see her primary provider, , or present to the emergency room. Jhonny Enriquez M.D. Telephone Encounter - Natalya Singh R.N. - 08/31/2018 11:27 AM CDT Keily says that she is on day 10 of a headache. She is currently 11 6/7 week gestation. She has tried the following measures: tylenol, hydration, pedialyte, heat, ice, rest, chiropractor. Her next appointment in 09/02/18. Please advise. Thank you documented in this encounter Plan of Treatment Upcoming Encounters Date Type Specialty Care Team Description 08/30/2022 Clinical Communication Admitting/Central Scheduling 09/02/2022 Comprehensive Visit Endocrinology Ricardo Winkler APRN, C.N.P., D.N.P. [address] [place] [address] documented as of this encounter Visit Diagnoses Not on filedocumented in this encounter Additional Health Concerns Assessment Noted Time PHQ-9 Depression Total Score: 13 12/04/2017 10:[address] documented as of this encounter Care Teams Machine Cell Tuber Relationship Specialty Start Date End Date Yarelis Reyes M.D. PCP - General 05/08/17 01/03/21 [address] [place] [address] documented as of this encounter
--- OUTSIDE RECORDS SUMMARY | 2022-08-16 21:30 | XMS_ITS | Encounter Summary ---
:1985 Author Organization [facility] Address [address] [place] [address] Care Team Providers Name Role Phone Yarelis Reyes M.D. Primary Care Provider [phone] Encounter Details Date Type Department Care Team Description 09/04/2018 Orders Only Department of Obstetrics and Jhonny Enriquez M.D. Gynecology in [place], [place] [address] [place] [address] Social History Tobacco Use [...] do you attend judaism or Never 2021 congregation services? Do you [...] Ricardo Winkler, SILVIO, C.N.P., D.N.P. [address] [place] [address] documented as of this encounter Visit Diagnoses Not on filedocumented in this encounter Additional Health Concerns Assessment Noted Time PHQ-9 Depression Total Score: 13 12/04/2017 10:[address] documented as of this encounter Care Teams Corduroy Brusher Operator Relationship Specialty Start Date End Date Yarelis Reyes M.D. PCP - General 05/08/17 01/03/21 [address] [place] [address] documented as of this encounter
--- OUTSIDE RECORDS SUMMARY | 2022-08-16 21:30 | XMS_ITS | Encounter Summary ---
:1985 Author Organization [facility] Address [address] [place] [address] Care Team Providers Name Role Phone Yarelis Reyes M.D. Primary Care Provider [phone] Reason for Visit Reason Comments Headache headache x 11 days whole hea d readiating down neck Appointment Request (Routine) - Closed Specialty Diagnoses / Procedures Referred By Contact Refer red To Contact Family Medicine Referral ID Status Reason Start Date Expiration Date Visits Requ ested Visits Authorized [id number] Closed 09/01/2018 09/01/2019 1 1 Encounter Details Date Type Department Care Team Description 09/01/2018 Office Visit Department of Family Zuleima caraballo Tension Medicine, Yarelis Bravo, (Primary Dx) Clinic, in [place] [address] [place] [id number] Social History Tobacco Use Types Packs/Day Years [...] do you attend taoism or Never 2021 confucianism services? Do you belong to any clubs [...] Sign Reading Time Taken Comments Blood Pressure 110/50 09/01/2018 3:35 PM CDT Pulse 72 09/01/2018 3:35 PM CDT Temperature 36.8 ??C (98.2 ??F) 09/01/2018 3:35 PM CDT Respiratory Rate 20 09/01/2018 3:35 PM CDT Oxygen Saturation 99% 09/01/2018 3:35 PM CDT room ai r Inhaled Oxygen Concentration - - Weight 67 kg (147 lb 11.3 oz) 09/01/2018 3:35 PM CDT Height 153 cm (5' 0.24) 09/01/2018 3:35 PM CDT Body Mass Index 28.62 09/01/2018 3:35 PM CDT documented in this encounter Progress Notes Yarelis Reyes M.D. - 09/01/2018 3:30 PM CDT SUBJECTIVE CHIEF COMPLAINT / REASON FOR VISIT Keily Ng is a 32 y.o. female who presents for evaluation of Headache (headache x 11 days whole head readiating down neck). HISTORY OF PRESENT ILLNESS Keily has had a headache for the past 11 days. And has been having some nausea. The headache seemsto be lessened only mildly with Tylenol. She has been using Aleve sporadically and is aware that nonsteroidals are not recommended in . She thought maybe she was dehydrated and started drinking Pedialyte and pickle juice. This has not been helpful. She seems to wake up in the morning feeling pretty good but to throughout the day headache worsens. REVIEW OF SYSTEMS REVIEW OF SYSTEMS She has no other concerns today. OBJECTIVE BP (!) 110/50 Pulse 72 Temp 36.8 ??C (Temporal) Resp 20 Ht 153 cm Wt 67 kg LMP 06/09/2018 SpO2 99% Comment: room air BMI 28.62 kg/m?? PHYSICAL EXAM Physical Exam GENERAL: Patient is alert and oriented, well groomed and appropriately dressed. HEENT: TMS are both normal. Nasal mucosa is normal without congestion or discharge. Oropharynx is without erythema or exudate. Pupils equal round and react to light. NECK: Without adenopathy. Paraspinous musculature is mildly tender. HEART: Regular rate and rhythm without murmur. LUNGS: Clear without wheeze crackle or rhonchus. ASSESSMENT / PLAN #1 Headache Tension She may continue to use Tylenol. Warm packs and gentle stretches are recommended. I also gave her a prescription for Flexeril to use at bedtime as needed to help relieve muscle spasms. Follow up with no improvement or with worsening symptoms. Follow-up with OBGYN as scheduled. Other orders - cyclobenzaprine (FLEXERIL) 10 mg tablet; Take 1 tablet (10 mg total) by mouth at bedtime as neededfor muscle spasms., Starting 09/01/2018, Until 10/31/2018, Normal documented in this encounter Plan of Treatment Upcoming Encounters Date Type Specialty Care Team Description 08/30/2022 Clinical Communication Admitting/Central Scheduling 09/02/2022 Comprehensive Visit Endocrinology Ricardo Winkler APRN, C.N.P., D.N.P. [address] [place] [address] documented as of this encounter Visit Diagnoses Diagnosis Headache Tension - Primary documented in this encounter Additional Health Concerns Assessment Noted Time PHQ-9 Depression Total Score: 13 12/04/2017 10:[address] documented as of this encounter Care Teams Metallurgy Laboratory Technician Relationship Specialty Start Date End Date Yarelis Reyes M.D. PCP - General 05/08/17 01/03/21 [address] [place] [phone] documented as of this encounter
--- OUTSIDE RECORDS SUMMARY | 2022-08-16 21:30 | XMS_ITS | Encounter Summary ---
:1985 Author Organization [facility] Address [address] [place] [address] Care Team Providers Name Role Phone Yarelis Reyes M.D. Primary Care Provider [phone] Encounter Details Date Type Department Care Team Description 10/29/2018 Clinical Communication Department of Internal Spencer Enriquez, [place] [address] [address] [facility] [phone] Social History Tobacco Use Types Packs/Day Years [...] do you attend sabianism or Never 2021 zoroastrianism services? Do you belong to any clubs [...] Ricardo Winkler APRN, C.N.P., D.N.P. [address] [place] [address] documented as of this encounter Visit Diagnoses Not on filedocumented in this encounter Additional Health Concerns Assessment Noted Time PHQ-9 Depression Total Score: 13 12/04/2017 10:23 AM Cristobal ROOT documented as of this encounter Care Teams Trip Motor Operator Relationship Specialty Start Date End Date Yarelis Reyes M.D. PCP - General 05/08/17 01/03/[address] [place] [address] documented as of this encounter
--- OUTSIDE RECORDS SUMMARY | 2022-08-16 21:30 | XMS_ITS | Encounter Summary ---
:1985 Author Organization [facility] Address [address] [place] [address] Care Team Providers Name Role Phone Yarelis Reyes M.D. Primary Care Provider [phone] Encounter Details Date Type Department Care Team Description 09/16/2018 Hospital Encounter Department of Jhonny Enriquez Examin ation Laboratory Medicine [place] Other No rmal in [place], [place] Trimester [address] [facility] [phone] Social History Tobacco Use Types Packs/Day Years [...] do you attend druze or Never 2021 yarsanism services? Do you belong to any clubs [...] 0 03/08/20 19 vit27,calcium/iron/FA mouth daily. (MULTIVITAMIN/MINERAL-PRENA LINK) tablet documented as of this encounter Plan of Treatment Upcoming Encounters Date Type Specialty Care Team Description 08/30/2022 Clinical Communication Admitting/Central Scheduling 09/02/2022 Comprehensive Visit Endocrinology Ricardo Winkler, SILVIO, C.N.P., D.N.P. [address] [place] [address] documented as of this encounter Procedures Procedure Name Priority Date/Time Associated Diagnosis Comme nts LEAD, B Routine 09/16/2018 2:46 PM Examination R esults for this CDT Other Normal proce dure are in First Trimester the results section. documented in this encounter Results Lead (09/16/2018 2:46 PM CDT) P athologist Signature Lead, Venous <1.0 0.0 - 4.9 09/17/2018 [facility] mcg/dL 10:05 AM CDT [facility] Comment: ----ADDITIONAL INFORMATION---- Testing performed by Inductively Coupled Plasma-Mass Spectrometry (ICP-MS). This test was developed and its performa nce characteristics determined by [facility] in a manner consistent with CLIA requirements. This test has not been cleared or approved by the [place] Juanita d and Drug Administration. Specimen Anatomical Collection Method Collection Time Receive d Time (Source) Location / / Volume Laterality Blood (Blood, 09/16/2018 2:46 PM 09/17/20 18 8:07 Venous) CDT AM CDT Jhonny Enriquez M.D. LAB BLOOD NON ADD-ON Performing Organization Address City/State/ZIP Code Phon e Number [facility] [address] [place], [place] [address] [facility] documented in this encounter Visit Diagnoses Diagnosis Examination Other Normal Pregna ncy First Trimester (HCC) documented in this encounter Additional Health Concerns Assessment Noted Time PHQ-9 Depression Total Score: 13 12/04/2017 10:[address] documented as of this encounter Care Teams Hog Buyer Relationship Specialty Start Date End Date Yarelis Reyes M.D. PCP - General 05/08/17 01/03/[address] [place] [address] documented as of this encounter
--- OUTSIDE RECORDS SUMMARY | 2022-08-16 21:30 | XMS_ITS | Encounter Summary ---
:1985 Author Organization [facility] Address [address] [place] [address] Care Team Providers Name Role Phone Yarelis Reyes M.D. Primary Care Provider [phone] Reason for Visit Reason Comments Med Refill Encounter Details Date Type Department Care Team Description 08/10/2018 Refill Department of Obstetrics and Jacqueline Choudhary, Med Refill Gynecology in [place] [address] [place] [address] [place] [address] [phone] Social History Tobacco Use Types Packs/Day Years [...] do you attend denominational or Never 2021 zoroastrian services? Do you belong to any clubs or No 01/25/2022 organizations such as denominational groups, unions, fraternal or athletic groups, or [...] this encounter Miscellaneous Notes Telephone Encounter - Yulisa Wahl L.P.N. - 08/21/2018 9:14 AM CDT Message left for [facility] pharmacy that this prescription does not need to be filled at this time. Patient is currently and any future refills will be sent by Dr. Enriquez. Telephone Encounter - Yolanda Marin - 08/21/2018 9:00 AM CDT Received second request. Please advise the pharmacy. Thank you. Telephone Encounter - Jennifer Hanson - 08/10/2018 1:17 PM CDT Nurse review: Unable to pend medication; Not on the med list. Primary Provider: Jacqueline Choudhary Name of medication: Fluconazole Strength: 150 mg tabs Frequency: Take one tablet by mouth once for one dose. Take on 06/04/18, 72 hours after your... Quantity: 1 Refills: Last Refill: 06/02/18 Pharmacy: [facility] documented in this encounter Plan of Treatment Upcoming Encounters Date Type Specialty Care Team Description 08/30/2022 Clinical Communication Admitting/Central Scheduling 09/02/2022 Comprehensive Visit Endocrinology Ricardo Winkler APRN, C.N.P., D.N.P. [address] [place] [address] documented as of this encounter Visit Diagnoses Not on filedocumented in this encounter Additional Health Concerns Assessment Noted Time PHQ-9 Depression Total Score: 13 12/04/2017 10:[address] documented as of this encounter Care Teams Glass Ribbon Machine Operator Relationship Specialty Start Date End Date Yarelis Reyes M.D. PCP - General 05/08/17 01/03/21 [address] [place] [address] documented as of this encounter
--- OUTSIDE RECORDS SUMMARY | 2022-08-16 21:30 | XMS_ITS | Encounter Summary ---
:1985 Author Organization [facility] Address [address] [place] [address] Care Team Providers Name Role Phone Yarelis Reyes M.D. Primary Care Provider [phone] Encounter Details Date Type Department Care Team Description 08/29/2018 Nurse Triage Department of [facility] Constance Lockhart Medicine, [facility], R.N. in [place], [place] [address] [place] [address] [place] [address] [phone] Social History Tobacco Use Types Packs/Day Years [...] do you attend mormonism or Never 2021 sikh services? Do you belong to any clubs [...] or slept in a intermediate (including now)? Sex Assigned at Date Recorded Female 06/02/2018 2:38 PM CDT documented as of this encounter Plan of Treatment Upcoming Encounters Date Type Specialty Care Team Description 08/30/2022 Clinical Communication Admitting/Central Scheduling 09/02/2022 Comprehensive Visit Endocrinology Ricardo Winkler APRN, C.N.P., D.N.P. [address] [place] [address] documented as of this encounter Visit Diagnoses Not on filedocumented in this encounter Additional Health Concerns Assessment Noted Time PHQ-9 Depression Total Score: 13 12/04/2017 10:23 AM C documented as of this encounter Care Teams Paper Hanger Relationship Specialty Start Date End Date Yarelis Reyes M.D. PCP - General 05/08/17 01/03/[address] [place] [phone] documented as of this encounter
--- OUTSIDE RECORDS SUMMARY | 2022-08-16 21:30 | XMS_ITS | Encounter Summary ---
:1985 Author Organization [facility] Address [address] [place] [address] Care Team Providers Name Role Phone Yarelis Reyes M.D. Primary Care Provider [phone] Reason for Referral Specialty Diagnoses / Procedures Referred By Contact Refer red To Contact Jhonny Enriquez M.D. [facility] [address] [address] Referral ID Status Reason Start Date Expiration Date Visits Requ ested Visits Authorized utpatient (Routine) - Closed Specialty Diagnoses / Procedures Referred By Contact Refer red To Contact Obstetrics and Jhonny Enriquez M.D. [facility] Gynecology [address] [place] [phone] Referral ID Status Reason Start Date Expiration Date Visits Requ ested Visits Authorized [id number] Closed 08/12/2018 08/12/2019 1 1 Reason for Visit Reason Comments Routine Visit 9 1/7 weeks Outpatient (Routine) - Closed Specialty Diagnoses / Procedures Referred By Contact Refer red To Contact Obstetrics and Jhonny Enriquez M.D. [facility] Gynecology [address] [place] [phone] Referral ID Status Reason Start Date Expiration Date Visits Requ ested Visits Authorized [id number] Closed 07/20/2018 07/20/2019 1 1 Encounter Details Date Type Department Care Team Description 08/12/2018 Routine Department of Jhonny Enriquez Examinat ion Other Normal First Trimester (Primary Dx); Obstetrics and M.D. Hyperemesis G ravidarum Mild ; Gynecology in With Personal History Gestational Diabetes Mellitus; [place], [place] Obesity Body Mass Index 30-3 9.9 Adult [address] [facility] [place] [phone] Social History Tobacco Use Types Packs/Day Years [...] do you attend amish or Never 2021 zoroastrianism services? Do you [...] or slept in a halfway (including now)? Sex Assigned at Date Recorded Female 06/02/2018 2:38 PM CDT documented as of this encounter Last Filed Vital Signs Vital Sign Reading Time Taken Comments Blood Pressure 90/62 08/12/2018 1:21 PM CDT Pulse 68 08/12/2018 1:21 PM CDT Temperature - - Respiratory Rate 16 08/12/2018 1:21 PM CDT Oxygen Saturation - - Inhaled Oxygen Concentration - - Weight 67.8 kg (149 lb 7.6 oz) 08/12/2018 1:21 PM CDT Height 153 cm (5' 0.24) 08/12/2018 1:21 PM CDT Body Mass Index 28.96 08/12/2018 1:21 PM CDT documented in this encounter Progress Notes Jhonny Enriquez M.D. - 08/12/2018 1:30 PM CDT CHIEF COMPLAINT / REASON FOR VISIT Patient presents for obstetrical visit CHIEF COMPLAINT / REASON FOR VISIT Keily Ng is a 32 y.o. . Patient's last menstrual period was 06/09/2018. Her Estimated Date of Delivery: 03/16/19 determined by LMP consistent with 8 week ultrasound. Gestational age is 9w1d. The patient presents for OB visit. Her is complicated by history of A1 gestational diabetes 2014, precipitous delivery 2014, delivery at 36 weeks 2009, chronic pain and fibromyalgia, chronic vaginitis, nausea and vomiting in . The patient was treated for acute synovitis 1 1/2 weeks ago. Her symptoms have now resolved. She developed vaginal candidiasis after finished antibiotic and was treated by her primary provider. Nausea/vomiting: Persistent morning nausea with occasional emesis. Vaginal bleeding: Denies. Abdominal or pelvic pain, cramping, tenderness: Denies. Difficulty urinating: Denies dysuria, hematuria, or flank pain. Breast tenderness: Denies. Fatigue: Denies. Headache or vision changes: Denies. Depression symptoms: Denies depression, anxiety, or suicidal thoughts. ALLERGIES Allergies Allergen Reactions ??? Bupropion Hcl Anxiety flush, anger MEDICATIONS Current Outpatient Prescriptions: ??? vit27,calcium/iron/FA (MULTIVITAMIN/MINERAL-) tablet, Take 1 tablet by mouth daily., Disp: , Rfl: REVIEW OF SYSTEMS As per HPI otherwise negative. PAST MEDICAL HISTORY Past Medical History: Diagnosis Date ??? Abnormal Pap Smear Personal History ??? Abuse Tobacco Smoking 06/27/2010 quit 2013 ??? Anemia ??? Bipolar I Depressed (HCC) 10/22/2011 ??? [...] OB History Para Term AB Living 7 4 3 1 2 4 SAB TAB Ectopic Molar Multiple Live Births 2 0 0 0 0 4 # Outcome Date GA Lbr Saroj/2nd Weight Sex Delivery Anes PTL Lv 7 Current 6 Term 02/17/15 39w2d 3.43 kg M Vag-Spont CHERYL Comments: A1GDM, Precipitous delivery 5 11/06/10 36w1d 2.353 kg M Vag-Spont CHERYL 4 Term 08/16/08 38w0d 2.75 kg F Vag-Spont CHERYL Comments: Labor 3 SAB 2005 9w0d SAB SA 2 SAB 2004 11w0d SAB SA 1 Term 02/10/02 38w0d 2.722 kg F Vag-Spont CHERYL OBJECTIVE BP 90/62 Pulse 68 Resp 16 Ht 153 cm Wt 67.8 kg LMP 06/09/2018 BMI 28.96 kg/m?? General: Well-developed, well-nourished female in no apparent distress. Mental: Alert and oriented times three. Affect pleasant. Mood happy. Lungs: Clear to auscultation bilaterally with good inspiratory effort. No wheezing rhonchi or rales noted. Breathing nonlabored. Heart: Regular rate and rhythm without murmur. No JVD. No peripheral vascular disease. Abdomen: Soft, nontender, nondistended, positive bowel sounds. No organomegaly. No rebound, no guarding. Fundal height not palpated. heart tones not auscultated. Pelvic exam: Deferred. Extremities: No clubbing cyanosis or edema. Nontender bilaterally. DIAGNOSTICS 12/18/2016 Pap smear: Negative for intraepithelial lesion or malignancy 08/04/2018 Chlamydia: Negative, Gonorrhea: Negative, Wet prep: Negative 08/10/2018 Ob ultrasound: 1. Intrauterine at 8 week 3 day. Positive cardiac activity. 2. EDC by today's ultrasound is 03/19/2019 which is consistent with LMP dating. 3. Embryo, cardiac activity, and yolk sac visualized. 4. No adnexal masses or free fluid noted. 08/12/2018 OB informal ultrasound shows intrauterine with embryo, cardiac activity, and yolk sac. heart rate measured at 158 beats per minute. ASSESSMENT / PLAN 32 y.o. at 9w1d who presents for OB visit. 1 Intrauterine at 9w1d. - I reviewed formal OB ultrasound with the patient showing intrauterine with positive cardiac activity consistent with dates. - An informal OB ultrasound today shows cardiac activity. 2 History of delivery at 36 weeks (2009) - I will discuss progesterone injections with the patient. 3 History of precipitous delivery - I will discuss precipitous delivery with the patient 4 History of A1 gestational diabetes - I discussed the risk of recurrent gestational diabetes in this . - I recommend early diabetes screening in this . 5 Chronic pain syndrome and fibromyalgia - I recommend the patient continue to see her primary provider, physical therapy, chiropractor, and physical medicine provider for management of her chronic pain syndrome and fibromyalgia. 6 Chronic vaginitis - I discussed the risk of recurrence of chronic vaginitis in . - The patient was recently treated for vaginal candidiasis but her wet prep on 08/04/2018 was negative. 7 Nausea and vomiting in - Symptomatic relief measures for nausea and vomiting in are reviewed the patient. - I discussed and recommend saltine crackers, high protein snacks, dry bland foods, frequent small meals every 1-2 hours to avoid a full stomach, avoidance of spicy or fatty foods, eliminating supplemental iron, and avoidance of toxic smells or other nausea triggers. - I discussed the use of erin to reduce nausea symptoms. - I discussed use of Sea band wrist straps to help with nausea symptoms. - I discussed the use of acupuncture for nausea symptoms. - I discussed the use of vitamin B6 (Pyridoxine) and doxylamine is a safe and effective first line therapy for nausea and vomiting of . - I discussed the risks, benefits, alternatives, and indication of antiemetic therapy with the patient. The patient declines antiemetic therapy at this time. 8 History of depression and bipolar disorder - The patient is asymptomatic. - Depression precautions in are reviewed the patient. - Dating: LMP: 06/09/2018 JOSE by LMP calculator: 03/16/2019 [facility] for Delivery: [facility] 's provider: Dr. Baltazar - I would like the patient follow up with clinic RN for OB education visit. - I would like patient follow back up in 2-3 weeks for first OB history physical examination including pelvic exam and Pap smear. - I briefly discussed labs. - I recommended we check labs in 2-3 weeks. - Problem list reviewed and updated. - I reviewed routine obstetrical precautions, recommendations and instructions with the patient including movement and kick count instructions. - I reviewed miscarriage precautions with the patient. - I discussed routine healthy diet recommendations, exercise recommendations and weight gain recommendations in . - Follow up in 2 weeks. - 35 minute visit with greater than 50% spent in counseling. Jhonny Enriquez MD Regrader - Obstetrics and Gynecology [facility] documented in this encounter Plan of Treatment Upcoming Encounters Date Type Specialty Care Team Description 08/30/2022 Clinical Communication Admitting/Central Scheduling 09/02/2022 Comprehensive Visit Endocrinology Ricardo Winkler, SILVIO, C.N.P., D.N.P. [address] [place] [phone] Scheduled Referrals Name Type Priority Associated Diagnoses Order S chedule Obstetrics and Outpatient Referral Routine Expect ed: Gynecology office 09/02/2018 visit (clinic) (Approximate) , Expires: 08/12/2021 Obstetrics and Outpatient Referral Routine Examination Prenata l Expected: Gynecology - OB Other Normal 09/07/2018 education visit First (Approxim ate), (clinic) Trimester Expires: 08/12/2021 documented as of this encounter Visit Diagnoses Diagnosis Examination Other Normal Pregna ncy First Trimester (HCC) - Primary Hyperemesis Gravidarum Mild (H CC) With Personal History Gestatio nal Diabetes Mellitus (HCC) Obesity Body Mass Index 30-39.9 Adult documented in this encounter Additional Health Concerns Assessment Noted Time PHQ-9 Depression Total Score: 13 12/04/2017 10:[address] documented as of this encounter Care Teams Deputy Sheriff Chief Relationship Specialty Start Date End Date Yarelis Reyes M.D. PCP - General 05/08/17 01/03/[address] [facility] [place] [phone] documented as of this encounter
--- OUTSIDE RECORDS SUMMARY | 2022-08-16 21:30 | XMS_ITS | Encounter Summary ---
:1985 Author Organization [facility] Address [address] [place] [address] Care Team Providers Name Role Phone Yarelis Reyes M.D. Primary Care Provider [phone] Encounter Details Date Type Department Care Team Description 09/07/2018 Orders Only Department of Obstetrics and Jhonny Enriquez M.D. Gynecology in [place], [place] [address] [place] [address] Social History Tobacco Use [...] or relatives? How often do you attend anabaptism or Never 2021 latter-day services? Do you belong to any clubs or No 01/25/2022 organizations such as anabaptism groups, unions, fraternal or athletic groups, or [...] Ricardo Winkler, SILVIO, C.N.P., D.N.P. [address] [place] [address] documented as of this encounter Visit Diagnoses Not on filedocumented in this encounter Additional Health Concerns Assessment Noted Time PHQ-9 Depression Total Score: 13 12/04/2017 10:[address] documented as of this encounter Care Teams Resource Recovery Specialist Relationship Specialty Start Date End Date Yarelis Reyes M.D. PCP - General 05/08/17 01/03/21 [address] [place] [address] documented as of this encounter
--- OUTSIDE RECORDS SUMMARY | 2022-08-16 21:30 | XMS_ITS | Encounter Summary ---
:1985 Author Organization [facility] Address [address] [place] [address] Care Team Providers Name Role Phone Yarelis Reyes M.D. Primary Care Provider Reason for Referral Outpatient (Routine) - Closed Specialty Diagnoses / Procedures Referred By Contact Refer red To Contact Obstetrics and Jhonny Enriquez M.D. [facility] Gynecology [address] [place] [address] Referral ID Status Reason Start Date Expiration Date Visits Requ ested Visits Authorized [id number] Closed 11/04/2018 11/04/2019 1 1 L PLACER Reason for Visit Reason Comments Routine Visit 21 1/7 weeks Outpatient (Routine) - Closed Specialty Diagnoses / Procedures Referred By Contact Refer red To Contact Obstetrics and Jhonny Enriquez M.D. [facility] Gynecology [address] [place] [address] Referral ID Status Reason Start Date Expiration Date Visits Requ ested Visits Authorized [id number] Closed 09/30/2018 09/30/2019 1 1 Encounter Details Date Type Department Care Team Description 11/04/2018 Routine Department of Jhonny Enriquez Examinat ion Other Normal Second Trimester (Primary Dx); Obstetrics and MAmarisDAmaris Wit h Personal History Gestational Diabetes Mellitus Gynecology in [place], [place] [address] [place] [address] Social History Tobacco Use Types [...] do you attend shinto or Never 2021 synagogue services? Do you belong to any clubs [...] Sign Reading Time Taken Comments Blood Pressure 94/52 11/04/2018 11:48 AM STEEL PLACER Pulse 70 11/04/2018 11:48 AM STEEL PLACER Temperature - - Respiratory Rate 16 11/04/2018 11:48 AM STEEL PLACER Oxygen Saturation - - Inhaled Oxygen Concentration - - Weight 70.4 kg (155 lb 3.3 oz) 11/04/2018 11:48 AM STEEL PLACER Height 153 cm (5' 0.24) 11/04/2018 11:48 AM STEEL PLACER Body Mass Index 30.07 11/04/2018 11:48 AM STEEL PLACER documented in this encounter Progress Notes Jhonny Enriquez M.D. - 11/04/2018 1:15 PM CST CHIEF COMPLAINT / REASON FOR VISIT 1 Obstetrics office visit SUBJECTIVE Keily Ng is a 33 y.o. . Patient's last menstrual period was 06/09/2018. Her Estimated Date of Delivery: 03/16/19 determined by LMP consistent with 8 week ultrasound. Gestational age is 21w1d. She presents to the office today for follow up OB visit. Her is complicated by history of A1 gestational diabetes 2014, precipitous delivery 2014, delivery at 36 weeks 2009, chronic pain and??fibromyalgia, chronic vaginitis, nausea and vomiting in , tension headache. She is doing well. She reports positive movement. She denies leaking of fluid or vaginal bleeding. She denies cramping or contractions. She denies pelvic pressure. She denies difficulty urinating. She denies headache or vision changes. She denies depression symptoms. She still has not scheduled 3 hr glucose tolerance test. She had an elevated early 1 hr glucose screen. ALLERGIES Allergies Allergen Reactions ??? Bupropion Hcl [...] daily., Disp: , Rfl: OBJECTIVE BP (!) 94/52 Pulse 70 Resp 16 Ht 153 cm Wt 70.4 kg LMP 06/09/2018 BMI 30.07 kg/m?? General: Well-developed well-nourished gravid female in no apparent distress. Alert and oriented x3. Abdomen: Gravid soft nontender positive bowel sounds. Fundal height at 21 cm. heart tones auscultated at 156. Cervix: defered Extremities: No clubbing cyanosis or edema. Nontender bilaterally. DIAGNOSTICS 10/06/2018 glucose screen: 174 11/04/2018 Ob ultrasound: 1. Intrauterine at 21 week 2 day with positive cardiac activity. 2. Estimated weight 424 g which is 51st percentile for growth. 3. EDC by today's ultrasound is 03/15/2019. 4. No gross anomalies are visualized. 5. Anterior placenta without placenta previa. 6. Normal fluid level with maximum vertical pocket 4.5 cm. 7. Fetus in variable presentation. ASSESSMENT / PLAN 1 Intrauterine at 21w1d. - I reviewed OB ultrasound results with the patient. - The patient declines influenza immunization. - The patient has an elevated glucose screen. I recommend that we check a 3 hr glucose tolerance test. I discussed with the patient my concern that she has gestational diabetes in this . 2 History of delivery at 36 weeks (2009) - I discussed the risk of delivery in this . - I reviewed the risks, benefits, alternatives, and indications of 17- hydroxyprogesterone injectionswith the patient. - ??I discussed with the patient that the use of 17-hydroxyprogesterone is to help decrease the riskfor recurrent delivery during this by approximately 40%. - The patient declines 17-hydroxyprogesterone injections. 3 History of precipitous delivery - I discussed the risk of precipitous delivery in this with the patient. - Close observation in the??3rd trimester is??recommended. 4 History of A1 gestational diabetes - I discussed the risk of recurrent gestational diabetes in this . - Early diabetes screening is elevated at 174. - I discussed options with the patient recommend checking a 3 hr glucose tolerance test to confirm that she has gestational diabetes or to rule out gestational weight diabetes. I have ordered another 3hr glucose tolerance test and recommend the patient go to the front to schedule this. - I discussed the option treating the patient for gestational diabetes based on her elevated screen at 174. Patient declines to check her blood sugars and declined to follow ADA diet at this time. She would prefer to check a 3 hr glucose tolerance test to rule out gestational diabetes at this time. 5 Chronic pain syndrome and fibromyalgia - [...] other concerning symptoms. - Follow up in 4 weeks. - 35 minute visit with greater than 50% spent in counseling. Jhonny Enriquez MD Piggery Worker - Obstetrics and Gynecology [facility] L PLACER documented in this encounter Plan of Treatment Upcoming Encounters Date Type Specialty Care Team Description 08/30/2022 Clinical Communication Admitting/Central Scheduling 09/02/2022 Comprehensive Visit Endocrinology Ricardo Winkler APRN, C.N.P., D.N.P. [address] [place] [phone] Scheduled Referrals Name Type Priority Associated Order Schedule Diagnoses Obstetrics and Outpatient Referral Routine Expect ed: Gynecology office 12/02/2018 visit (clinic) (Approximate) , Expires: 11/04/2021 documented as of this encounter Visit Diagnoses Diagnosis Examination Other Normal Pregna ncy Second Trimester (HCC) - Primary With Personal History Gestatio nal Diabetes Mellitus (HCC) documented in this encounter Additional Health Concerns Assessment Noted Time PHQ-9 Depression Total Score: 13 12/04/2017 10:[address] documented as of this encounter Care Teams Director Of Software Development Relationship Specialty Start Date End Date Yarelis Reyes M.D. PCP - General 05/08/17 01/03/21 [address] [place] [address] documented as of this encounter
--- OUTSIDE RECORDS SUMMARY | 2022-08-16 21:30 | XMS_ITS | Encounter Summary ---
:[address] [facility] Address [address] [place] [address] Care Team Providers Name Role Phone Yarelis Reyes M.D. Primary Care Provider [phone] Encounter Details Date Type Department Care Team Description 12/03/2018 Orders Only Department of Obstetrics and Jhonny Enriquez M.D. Gynecology in [place], [place] [address] [place] [address] Social History Tobacco Use [...] or relatives? How often do you attend yarsani or Never 2021 religion services? Do you belong to any clubs or No 01/25/2022 organizations such as yarsani groups, unions, fraternal or athletic groups, or [...] Ricardo Winkler, SILVIO, C.N.P., D.N.P. [address] [place] [address] documented as of this encounter Visit Diagnoses Not on filedocumented in this encounter Additional Health Concerns Assessment Noted Time PHQ-9 Depression Total Score: 13 12/04/2017 10:[address] documented as of this encounter Care Teams Clip Loading Machine Feeder Relationship Specialty Start Date End Date Yarelis Reyes M.D. PCP - General 05/08/17 01/03/21 [address] [place] [address] documented as of this encounter
--- OUTSIDE RECORDS SUMMARY | 2022-08-16 21:30 | XMS_ITS | Encounter Summary ---
:1985 Author Organization [facility] Address [address] [place] [address] Care Team Providers Name Role Phone Yarelis Reyes M.D. Primary Care Provider [phone] Reason for Visit Reason Comments Routine Visit 14+1 weeks Patient Education First trimester OB education Encounter Details Date Type Department Care Team Description 09/16/2018 Routine Department of Jhonny Enriquez M.D. Exa mination Obstetrics and Lori Stauffer RAmarisNAmaris [address] [place] [phone] Other Normal Gynecology in [place], [place] Trimester [address] [facility] [place] [address] Social History Tobacco Use Types [...] do you attend baptism or Never 2021 anglican services? Do you belong to any clubs [...] Sign Reading Time Taken Comments Blood Pressure 102/60 09/16/2018 1:36 PM CDT Pulse - - Temperature - - Respiratory Rate - - Oxygen Saturation - - Inhaled Oxygen Concentration - - Weight 68.1 kg (150 lb 2.1 oz) 09/16/2018 1:36 PM CDT Height - - Body Mass Index 29.09 09/02/2018 1:23 PM CDT documented in this encounter Progress Notes Lori Stauffer, RAmarisN. - 09/16/2018 1:30 PM CDT S: Patient states she is feeling well. She has not had cramping, has not had nausea, has not had vomiting. She stated that she has been having more headaches and she was told that these are tension headaches. REVIEW OF SYSTEMS: General: No fever, chills, fatigue, unintentional weight [...] hair loss, intolerance of heat or cold A/P: 32 y.o. at 14w1d who presents for OB follow up and first trimester OB education. 1.) New OB labs were obtained and reviewed today. They all returned WNL. 2.) Flu vaccine was declined by patient today. 3.) Anticipated course of care was discussed in detail today, including indication of ultrasounds. 4.) Nutrition counseling was also discussed in detail, including dietary precautions. Recommended weight gain is 15-25 lbs. 5.) MDH identification of lead exposure was completed and 1 risk was identified. Lead screening was ordered and obtained today per protocol. We will contact her with results. 6.) She stated that she has been having more headaches and she was told that these are tension headaches. She has been taking OTC Tylenol and heat packs with some relief. She will let us know if this worsens. 7.) Signs and symptoms of labor were discussed in detail. 8.) Hospital registration form completed at today's appointment and submitted to [facility] for processing. First trimester education provided today using the ACOG list of recommended antepartum education topics and in accordance with [facility] guidelines. Patient states understanding to all topics presented. All questions answered during appointment. Written information regarding topics presented provided for patient to take home. Please see education tab for further details about topics addressed. documented in this encounter Plan of Treatment Upcoming Encounters Date Type Specialty Care Team Description 08/30/2022 Clinical Communication Admitting/Central Scheduling 09/02/2022 Comprehensive Visit Endocrinology Ricardo Winkler APRN, C.N.P., D.N.P. [address] [place] [address] documented as of this encounter Results Lead (09/16/2018 2:46 PM CDT) P athologist Signature Lead, Venous <1.0 0.0 - 4.9 09/17/2018 [facility] mcg/dL 10:05 AM CDT [facility] Comment: ----ADDITIONAL INFORMATION---- Testing performed by Inductively Coupled Plasma-Mass Spectrometry (ICP-MS). This test was developed and its performa nce characteristics determined by [facility] in a manner consistent with CLIA requirements. [...] City/State/ZIP Code Phon e Number [facility] [address] [place], [place] [address] documented in this encounter Visit Diagnoses Diagnosis Examination Other Normal Pregna ncy First Trimester (HCC) documented in this encounter Additional Health Concerns Assessment Noted Time PHQ-9 Depression Total Score: 13 12/04/2017 10:[address] documented as of this encounter Care Teams Registered Respiratory Therapist Relationship Specialty Start Date End Date Yarelis Reyes M.D. PCP - General 05/08/17 01/03/21 [address] [place] [address] documented as of this encounter
--- OUTSIDE RECORDS SUMMARY | 2022-08-16 21:30 | XMS_ITS | Encounter Summary ---
:1985 Author Organization [facility] Address [address] [place] [address] Care Team Providers Name Role Phone Yarelis Reyes M.D. Primary Care Provider [phone] Encounter Details Date Type Department Care Team Description 10/09/2018 Orders Only Department of Family Micaela lam, [facility] supervisor instant potato processing [address] [place], [place] [address]Jeff [place], [place] [phone] (Wo rk) Social History Tobacco Use Types [...] or relatives? How often do you attend mosque or Never 2021 buddhism services? Do you belong to any clubs or No 01/25/2022 organizations such as mosque groups, unions, fraternal or athletic groups, or [...] Ricardo Winkler, SILVIO, C.N.P., D.N.P. [address] [place] [address] documented as of this encounter Visit Diagnoses Not on filedocumented in this encounter Additional Health Concerns Assessment Noted Time PHQ-9 Depression Total Score: 13 12/04/2017 10:[address] documented as of this encounter Care Teams Machine Tool Dresser Relationship Specialty Start Date End Date aYrelis Reyes M.D. PCP - General 05/08/17 01/03/21 [address] [place] [address] documented as of this encounter
--- OUTSIDE RECORDS SUMMARY | 2022-08-16 21:30 | XMS_ITS | Encounter Summary ---
:[address] [facility] Address [address] [place] [address] Care Team Providers Name Role Phone Yarelis Reyes M.D. Primary Care Provider [phone] Encounter Details Date Type Department Care Team Description 10/11/2018 Orders Only Department of Jhonny Enriquez Examination Obstetrics and MDuane Other Normal Gynecology in [place], [place] (Primary Dx) [address] [place] [phone] Social History Tobacco Use Types Packs/Day Years [...] do you attend orthodox or Never 2021 pentecostal services? Do you [...] Endocrinology Ricardo Winkler APRN, C.N.P., D.N.P. [address] [place] [phone] documented as of this encounter Results (ABNORMAL) Glucose Tolerance, 3 Hours (12/02/2018 8:52 AM ED TECH) athologist Signature Glucose Mele, 86 <95 mg/dL 12/02/2018 [facility] Baseline, S 3:36 PM [facility] Glucose Mele, 1 199 (H) <180 mg/dL 12/02/2018 [facility] hr, S 3:48 PM [facility] Glucose Mele, 2 147 <155 mg/dL 12/02/2018 [facility] hr, S 4:04 PM [facility] Glucose Mele, 3 106 <140 mg/dL 12/02/2018 [facility] hr, S 4:17 PM [facility] Specimen Anatomical Collection Method Collection Time Receive d Time (Source) Location / / Volume Laterality Blood (Blood, 12/02/2018 8:52 AM 12/02/19 19 Venous) ED TECH 10:57 AM ED TECH Narrative [facility] - 12/02/2018 4:17 PM ED TECH Specimen Information: Specimen ID: [id number] Specimen Type: Blood Specimen Collection Start Date: ??8:52 AM Specimen Received Date: 12/02/2018 10:57 AM Specimen ID: [id number] Specimen Type: Blood Specimen Collection Start Date: 9 ??9:58 AM Specimen Received Date: 12/02/2018 ??1:13 PM Specimen ID: [id number] Specimen Type: Blood Specimen Collection Start Date: 10:59 AM Specimen Received Date: 12/02/2018 ??1:13 PM Specimen ID: [id number] Specimen Type: Blood Specimen Collection Start Date: 12:00 PM Specimen Received Date: 12/02/2018 ??3:33 PM Jhonny Enriquez M.D. LAB BLOOD NON ADD-ON Performing Organization Address City/State/ZIP Code Phon e Number [facility] [address] [place] [address] LAB documented in this encounter Visit Diagnoses Diagnosis Examination Other Normal Pregna ncy Second Trimester (HCC) - Primary Examination Other Normal Pregna ncy Second Trimester (HCC) documented in this encounter Additional Health Concerns Assessment Noted Time PHQ-9 Depression Total Score: 13 12/04/2017 10:[address] documented as of this encounter Care Teams Business Objects Analyst Relationship Specialty Start Date End Date Yarelis Reyes M.D. PCP - General 05/08/17 01/03/210 [place] [address] documented as of this encounter
--- OUTSIDE RECORDS SUMMARY | 2022-08-16 21:30 | XMS_ITS | Encounter Summary ---
:1985 Author Organization [facility] Address [address] [place] [address] Care Team Providers Name Role Phone Yarelis Reyes M.D. Primary Care Provider Reason for Referral Outpatient (Routine) - Closed Specialty Diagnoses / Procedures Referred By Contact Refer red To Contact Obstetrics and Jhonny Enriquez M.D. [facility] Gynecology [address] [place] [address] Referral ID Status Reason Start Date Expiration Date Visits Requ ested Visits Authorized [id number] Closed 09/30/2018 09/30/2019 1 1 ECTIVE SIGNAL REPAIRER HELPER Reason for Visit Reason Comments Routine Visit Outpatient (Routine) - Closed Specialty Diagnoses / Procedures Referred By Contact Refer red To Contact Obstetrics Jhonny Fisher M.D. [facility] Gynecology [address] [place] [address] Referral ID Status Reason Start Date Expiration Date Visits Requ ested Visits Authorized [id number] Closed 09/02/2018 09/02/2019 1 1 Encounter Details Date Type Department Care Team Description 09/30/2018 Routine Department of Jhonny Enriquez Examinat ion Other Normal Second Trimester (Primary Dx); Obstetrics and M.D. Wit h Personal History Gestational Diabetes Mellitus; Gynecology in [place] [facility] [place], [place] [address] [place] [phone] Social History Tobacco Use Types Packs/Day Years [...] Sign Reading Time Taken Comments Blood Pressure 110/68 09/30/2018 1:05 PM PROTECTIVE SIGNAL REPAIRER HELPER Pulse 66 09/30/2018 1:05 PM PROTECTIVE SIGNAL REPAIRER HELPER Temperature - - Respiratory Rate 18 09/30/2018 1:05 PM PROTECTIVE SIGNAL REPAIRER HELPER Oxygen Saturation - - Inhaled Oxygen Concentration - - Weight 68.9 kg (151 lb 14.4 oz) 09/30/2018 1:05 PM PROTECTIVE SIGNAL REPAIRER HELPER Height 153 cm (5' 0.24) 09/30/2018 1:05 PM PROTECTIVE SIGNAL REPAIRER HELPER Body Mass Index 29.43 09/30/2018 1:05 PM PROTECTIVE SIGNAL REPAIRER HELPER documented in this encounter Progress Notes Jhonny Enriquez M.D. - 09/30/2018 1:15 PM CST CHIEF COMPLAINT / REASON FOR VISIT 1 Obstetrics office visit SUBJECTIVE Keily Ng is a 32 y.o. . Patient's last menstrual period was 06/09/2018. Her Estimated Date of Delivery: 03/16/19 determined by LMP consistent with 8 week ultrasound. Gestational age is 16w1d. She presents to the office today for follow up OB visit. Her is complicated by history of A1 gestational diabetes 2014, precipitous delivery 2014, delivery at 36 weeks 2009, chronic pain and??fibromyalgia, chronic vaginitis, nausea and vomiting in , tension headache She is doing well. Her nausea vomiting symptoms have resolved. She reports positive movement. She denies leaking of fluid or vaginal bleeding. She denies cramping or contractions. She denies pelvic pressure. She denies difficulty urinating. She denies headache or vision changes. She denies depres ryan symptoms. ALLERGIES Allergies Allergen Reactions ??? Bupropion Hcl Anxiety flush, anger MEDICATIONS Current Outpatient Prescriptions: ??? acetaminophen (TYLENOL) 500 mg capsule, Take by mouth every 6 (six) hours as needed for pain., Disp: , Rfl: ??? vit27,calcium/iron/FA (MULTIVITAMIN/MINERAL-) tablet, Take 1 tablet by mouth daily., Disp: , Rfl: ??? cyclobenzaprine (FLEXERIL) 10 mg tablet, Take 1 tablet (10 mg total) by mouth at bedtime as needed for muscle spasms. (Patient not taking: Reported on 09/30/2018 ), Disp: 30 tablet, Rfl: 0 OBJECTIVE BP 110/68 Pulse 66 Resp 18 Ht 153 cm Wt 68.9 kg LMP 06/09/2018 BMI 29.43 kg/m?? General: Well-developed well-nourished female in no apparent distress. Alert and oriented x3. Abdomen: Soft nontender positive bowel sounds. Fundal height not palpated. heart tones auscultated at 154. Cervix: defered Extremities: No clubbing cyanosis or edema. Nontender bilaterally. DIAGNOSTICS 12/18/2016 Pap smear: Negative for intraepithelial lesion or malignancy ?? 09/02/2018 O positive, and missing negative, hemoglobin 11.1, hematocrit 34.1, platelets 361, TSH 1.6, serology negative, hepatitis B surface antigen negative, HIV negative, rubella positive, varicellapositive 09/02/2018 Cell free DNA: negative screen for aneuploidy. Y chromosome not detected ASSESSMENT / PLAN 1 Intrauterine at 16w1d. - I reviewed new OB lab results with the patient. - I reviewed cell free DNA results with the patient. - The patient declines influenza immunization. 2 History of delivery at 36 weeks [...] with the patient. - Close observation in the 3rd trimester is recommended. 4 History of A1 gestational diabetes - I discussed the risk of recurrent gestational diabetes in this . - I recommend early diabetes screening in this . Glucose screen ordered today. 5 Chronic pain syndrome and fibromyalgia [...] recommend the patient wear cotton underwear. 7 Nausea and vomiting in - The patient reports her symptoms have resolved. 8 History of depression and bipolar disorder - The patient is asymptomatic. - Depression precautions in are reviewed the patient. 9 Tension headaches - Pain control for headache in is similar to when non-, except for [...] reviewed miscarriage precautions with the patient. - OB ultrasound for survey ordered. I recommend this be scheduled between 20 and 22 weeks gestation. - Follow up in 4 weeks. - I spent 30 min [id number] time with the patient with greater than 50% of this time spent in counseling and coordinating care. Jhonny Enriquez MD Oceanography Professor - Obstetrics and Gynecology [facility] ECTIVE SIGNAL REPAIRER HELPER documented in this encounter Plan of Treatment Upcoming Encounters Date Type Specialty Care Team Description 08/30/2022 Clinical Communication Admitting/Central Scheduling 09/02/2022 Comprehensive Visit Endocrinology Ricardo Winkler, SILVIO, C.N.P., D.N.P. [address] [place] [address] Scheduled Referrals Name Type Priority Associated Order Schedule Diagnoses Obstetrics and Outpatient Referral Routine Expect ed: Gynecology office 11/04/2018 visit (clinic) (Approximate) , Expires: 09/30/2021 documented as of this encounter Results US OB Anatomy Perez (11/04/2018 11:52 AM PROTECTIVE SIGNAL REPAIRER HELPER) Anatomical Region Laterality Modality Body, Ultrasound OB RST LOS, Ultrasound ARZ LOS N/A Ultrasound Specimen (Source) Anatomical Collection Method Collection Time Re ceived Time Location / / Volume Laterality 11/04/2018 12:05 PM PROTECTIVE SIGNAL REPAIRER HELPER Impressions 11/04/2018 12:09 PM PROTECTIVE SIGNAL REPAIRER HELPER IMPRESSION: 1. ??Intrauterine at 21 week 2 day with positive cardiac activity. 2. ??Estimated weight 424 g which is 51st percentile for growth. 3. ??EDC by today's ultrasound is 2018. 4. ??No gross anomalies are visualized. 5. ??Anterior placenta without placenta previa. 6. ??Normal fluid level with maximum lina tical pocket 4.5 cm. 7. ??Fetus in variable presentation. Jhonny Enriquez MD Narrative 11/04/2018 12:09 PM PROTECTIVE SIGNAL REPAIRER HELPER EXAM: US OB ANATOMY PEREZ COMPARISON: None FINDINGS: Number of Gestations: Single Established Gestational age: ??21 week 1 day. JOSE 03/16/2019. Presentation: ??Variable Placental Location: ??Anterior without p lacenta previa Amniotic Fluid: Subjectively normal in v olume. ??Maximum vertical pocket 4.5 cm. Age by current ultrasound measurements: ??21 week 2 day. EDC by today's ultrasound: ??03/15/2019 Estimated weight: ??424 grams. EFW is at the 51 percentile for gestatio nal age. BPD 36 %ile, 4.91 cm consistent 20 weeks 6 day HC 25 %ile, 18.41 cm consistent with 20 week 6 day AC 54 %ile, 16.41 cm consistent with 21 week 4 day FL 58 %ile, 3.66 cm consistent with 21 w [place] 5 day heart rate: ??160 bpm. anatomic survey: ??Routine a natomic survey completed and no anomalies identified. Maternal ovaries/adnexae: Normal Cervix: No abnormality identified trans- abdominally. ??Cervical length 4.2 cm. Unless otherwise indicated, the cardenas rvey includes: Four-chamber heart, RVOT and LVOT, diaphragm, stomach (presence a nd situs), kidneys, bladder, spine (cervical, thoracic, lumbar, and sacral spine), cerebral ventricles and choroid plexus, cavum septum pellucidum, cistern a magna, cerebellum, three vessel umbilical cord, umbilical cord insertion , four extremities, upper lip, facial profile. Procedure Note Jhonny Enriquez M.D. - 11/04/2018Formatti ng of this note might be different from the original. EXAM: US OB ANATOMY PEREZ COMPARISON: None FINDINGS: Number of Gestations: Single Established Gestational age: 21 week 1 d ay. JOSE 03/16/2019. Presentation: Variable Placental Location: Anterior without mark centa previa Amniotic Fluid: Subjectively normal in v olume. Maximum vertical pocket 4.5 cm. Age by current ultrasound measurements: 21 week 2 day. EDC by today's ultrasound: 03/15/2019 Estimated weight: 424 grams. EFW is at the 51 percentile for gestatio nal age. BPD 36 %ile, 4.91 cm consistent 20 weeks 6 day HC 25 %ile, 18.41 cm consistent with 20 week 6 day AC 54 %ile, 16.41 cm consistent with 21 week 4 day FL 58 %ile, 3.66 cm consistent with 21 w [place] 5 day heart rate: 160 bpm. anatomic survey: Routine yesenia tomic survey completed and no anomalies identified. Maternal ovaries/adnexae: Normal Cervix: No abnormality identified trans- abdominally. Cervical length 4.2 cm. Unless otherwise indicated, the cardenas rvey includes: Four-chamber heart, RVOT and LVOT, diaphragm, stomach (presence a nd situs), kidneys, bladder, spine (cervical, thoracic, lumbar, and sacral spine), cerebral ventricles and choroid plexus, cavum septum pellucidum, cistern a magna, cerebellum, three vessel umbilical cord, umbilical cord insertion , four extremities, upper lip, facial profile. IMPRESSION: 1. Intrauterine at 21 week 2 day with positive cardiac activity. 2. Estimated weight 424 g which is 51st percentile for growth. 3. EDC by today's ultrasound is 03/15/20 19. 4. No gross anomalies are visualized. 5. Anterior placenta without placenta pr evia. 6. Normal fluid level with maximum verti faviola pocket 4.5 cm. 7. Fetus in variable presentation. Jhonny Enriquez MD Jhonny Enriquez M.D. IMG OB US PROCEDURES (ABNORMAL) Glucose Tolerance Test, 1 hour (10/06/2018 9:22 AM PROTECTIVE SIGNAL REPAIRER HELPER) P athologist Signature Glucose Mele, 1 174 (H) <130 mg/dL 10/06/2018 [facility] hr, S 1:11 PM PROTECTIVE SIGNAL REPAIRER HELPER [facility] Specimen Anatomical Collection Method Collection Time Receive d Time (Source) Location / / Volume Laterality Blood (Blood, 10/06/2018 9:22 AM 10/06/20 18 1:01 Venous) PROTECTIVE SIGNAL REPAIRER HELPER PM PROTECTIVE SIGNAL REPAIRER HELPER Jhonny Enriquez M.D. LAB BLOOD NON ADD-ON Performing Organization Address City/State/ZIP Code Phon e Number [facility] [address] [place] [address] LAB documented in this encounter Visit Diagnoses Diagnosis Examination Other Normal Pregna ncy Second Trimester (HCC) - Primary With Personal History Gestatio nal Diabetes Mellitus (HCC) Headache Tension Chronic Examination Other Normal Pregna ncy Second Trimester (HCC) With Personal History Gestatio nal Diabetes Mellitus (HCC) Headache Tension Chronic documented in this encounter Additional Health Concerns Assessment Noted Time PHQ-9 Depression Total Score: 13 12/04/2017 10:[address] documented as of this encounter Care Teams Floor Layer Relationship Specialty Start Date End Date Yarelis Reyes M.D. PCP - General 05/08/17 01/03/21 [address], [place] [address] documented as of this encounter
--- OUTSIDE RECORDS SUMMARY | 2022-08-16 21:30 | XMS_ITS | Encounter Summary ---
:1985 Author Organization [facility] Address [address] [place] [address] Care Team Providers Name Role Phone Yarelis Reyes M.D. Primary Care Provider [phone] Encounter Details Date Type Department Care Team Description 12/02/2018 Hospital Encounter Department of Jhonny Enriquez Examin ation Laboratory Medicine Efren Other No rmal in [place], [place] Trimester [address] [facility] [place] [place] [id number] Social History Tobacco Use Types Packs/Day Years [...] or relatives? How often do you attend sabianist or Never 2021 gnosticist services? Do you belong to any clubs or No 01/25/2022 organizations such as sabianist groups, unions, fraternal or athletic groups, or [...] at bedtime as needed for muscle spasms. fluconazole (DIFLUCAN) 150 Take 1 tablet (150 2 tablet 0 1 12/30/2017 12/09/2018 mg tablet mg total) by mouth every third day as needed (yeast infection). Repeat in 3 days if symptoms persist. lidocaine (LIDODERM) 5 % Place 1 patch [...] Ricardo Winkler APRN, C.N.P., D.N.P. [address] [place] [address] documented as of this encounter Procedures Procedure Name Priority Date/Time Associated Diagnosis Comme nts GLUCOSE MELE, 3 HR, Routine 12/02/2018 8:52 AM Examination Pren atal Results for this S/P MAINTENANCE CONTROLLER Other Normal procedure are i n Second the results Trimester section. documented in this encounter Results (ABNORMAL) Glucose Tolerance, 3 Hours (12/02/2018 8:52 AM MAINTENANCE CONTROLLER) P athologist Signature Glucose Mele, 86 <95 mg/dL 12/02/2018 [facility] Baseline, S 3:36 PM [facility] Glucose Mele, 1 199 (H) <180 mg/dL 12/02/2018 [facility] hr, S 3:48 PM MAINTENANCE CONTROLLER [facility] Glucose Mele, 2 147 <155 mg/dL 12/02/2018 [facility] hr, S 4:04 PM [facility] Glucose Mele, 3 106 <140 mg/dL 12/02/2018 [facility] hr, S 4:17 PM [facility] Specimen Anatomical Collection Method Collection Time Receive d Time (Source) Location / / Volume Laterality Blood (Blood, 12/02/2018 8:52 AM 12/02/19 19 Venous) MAINTENANCE CONTROLLER 10:57 AM MAINTENANCE CONTROLLER Narrative [facility] - 12/02/2018 4:17 PM MAINTENANCE CONTROLLER Specimen Information: Specimen ID: [id number] Specimen Type: Blood Specimen Collection Start Date: ??8:52 AM Specimen Received Date: 12/02/2018 10:57 AM Specimen ID: [id number] Specimen Type: Blood Specimen Collection Start Date: ??9:58 AM Specimen Received Date: 12/02/2018 ??1:13 PM Specimen ID: [id number] Specimen Type: Blood Specimen Collection Start Date: 10:59 AM Specimen Received Date: 12/02/2018 ??1:13 PM Specimen ID: [id number] Specimen Type: Blood Specimen Collection Start Date: 12:00 PM Specimen Received Date: 12/02/2018 ??3:33 PM Jhonny Enriquez M.D. LAB BLOOD NON ADD-ON Performing Organization Address City/State/ZIP Code Phon e Number [facility] [address] [place] [address] LAB documented in this encounter Visit Diagnoses Diagnosis Examination Other Normal Pregna ncy Second Trimester (HCC) documented in this encounter Additional Health Concerns Assessment Noted Time PHQ-9 Depression Total Score: 13 12/04/2017 10:[address] documented as of this encounter Care Teams Java Software Architect Relationship Specialty Start Date End Date Yarelis Reyes M.D. PCP - General 05/08/17 01/03/[address] [place] [phone] documented as of this encounter
--- OUTSIDE RECORDS SUMMARY | 2022-08-16 21:30 | XMS_ITS | Encounter Summary ---
:1985 Author Organization [facility] Address [address] [place] [address] Care Team Providers Name Role Phone Yarelis Reyes M.D. Primary Care Provider [phone] Encounter Details Date Type Department Care Team Description 11/18/2018 Clinical Communication Department of Physical Benson , Medicine and Chris Castro M.D. Rehabilitation in [address] [place], [place] [phone] [place] [address] [facility] [phone] Social History Tobacco Use Types Packs/Day Years [...] do you attend sabianism or Never 2021 islam services? Do you belong to any clubs [...] this encounter Miscellaneous Notes Telephone Encounter - Rose Barroso - 11/18/2018 1:58 PM CST Reason for Communication: Question Current Phone Number: [phone], patient said she prefers to be contacted back through her patient portal. Can Nursing/Provider leave a detailed message: Yes Did the patient refuse triage through Nurse line? (for symptom based concerns)N/A Action Needed: Patient has seen Dr. Benson before, she called to ask if he does Lidocaine injections for headaches. She said she is 23 weeks . Please advise back through patient portal Name of Medication (if relevant): UTER PROJECT MANAGER documented in this encounter Plan of Treatment Upcoming Encounters Date Type Specialty Care Team Description 08/30/2022 Clinical Communication Admitting/Central Scheduling 09/02/2022 Comprehensive Visit Endocrinology Ricardo Winkler, SILVIO, C.N.P., D.N.P. [address] [place] [address] documented as of this encounter Results FL INJ TRIGGER PNT >=3 MUS, FL US GUIDE PLC NDL (01/13/2019 1:00 PM COMPUTER PROJECT MANAGER) Specimen (Source) Anatomical Location Collection Method / Collectio n Time Received Time / Laterality Volume Narrative [facility] - 01/13/2019 1:00 PM COMPUTER PROJECT MANAGER Chris Benson M.D. ? 01/13/2019 ??5:41 PM Ultrasound-guided right levator scapulae , trapezius (upper and mid), and cervical paraspinal trigger point inject ion Date/Time: 01/13/2019 5:38 PM Performed by: CHRIS BENSON Authorized by: CHRIS BENSON Care team members present: ??PMR nurse ?Indication: [...] the patient and/or decision maker: yes ?? [place] protocol: ??All relevant documentation and testin g [...] procedure .: yes ?Skin preparation: ??Chlorhexidine Chris Benson M.D. PROCEDURE/MINOR SURGICAL ORD ERABLES Performing Organization Address City/State/ZIP Code Phon e Number [facility] NA documented in this encounter Visit Diagnoses Diagnosis Headache Unspecified - Primary Headache Cervicogenic - Primary Headache Unspecified Pain Myofascial Cervical Myalgia documented in this encounter Additional Health Concerns Assessment Noted Time PHQ-9 Depression Total Score: 13 12/04/2017 10:[address] documented as of this encounter Care Teams City Supervisor Relationship Specialty Start Date End Date Yarelis Reyes M.D. PCP - General 05/08/17 01/03/[address] [place] [address] documented as of this encounter
--- OUTSIDE RECORDS SUMMARY | 2022-08-16 21:30 | XMS_ITS | Encounter Summary ---
:[address] [facility] Address [address] [place] [address] Care Team Providers Name Role Phone Yareils Reyes M.D. Primary Care Provider [phone] Reason for Referral Outpatient (Routine) - Closed Specialty Diagnoses / Procedures Referred By Contact Refer red To Contact Obstetrics and Jhonny Enriquez M.D. [facility] Gynecology [address] [place] [address] Referral ID Status Reason Start Date Expiration Date Visits Requ ested Visits Authorized [id number] Closed 09/02/2018 09/02/2019 1 1 Reason for Visit Reason Comments Routine Visit Outpatient (Routine) - Closed Specialty Diagnoses / Procedures Referred By Contact Refer red To Contact Jhonny Sotelo M.D. [facility] Gynecology [address] [place] [address] Referral ID Status Reason Start Date Expiration Date Visits Requ ested Visits Authorized [id number] Closed 08/12/2018 08/12/2019 1 1 Encounter Details Date Type Department Care Team Description 09/02/2018 Routine Department of Jhonny Enriquez Examinat ion Other Normal First Trimester (Primary Dx); Obstetrics and M.D. Hyperemesis G ravidarum Mild ; Gynecology in With Personal History Gestational Diabetes Mellitus; [place], [place] Headache Tension Chronic [address] [place] [id number] Social History Tobacco Use Types Packs/Day Years [...] do you attend mandaen or Never 2021 zoroastrianism services? Do you [...] Sign Reading Time Taken Comments Blood Pressure 90/58 09/02/2018 1:23 PM CDT Pulse 70 09/02/2018 1:23 PM CDT Temperature 36.8 ??C (98.2 ??F) 09/02/2018 1:23 PM CDT Respiratory Rate 16 09/02/2018 1:23 PM CDT Oxygen Saturation - - Inhaled Oxygen Concentration - - Weight 67.1 kg (147 lb 14.9 oz) 09/02/2018 1:23 PM CDT Height 153 cm (5' 0.24) 09/02/2018 1:23 PM CDT Body Mass Index 28.66 09/02/2018 1:23 PM CDT documented in this encounter Progress Notes Jhonny Enriquez M.D. - 09/02/2018 1:45 PM CDT OB First OB H&P NOTE CHIEF COMPLAINT / REASON FOR VISIT Patient presents for first obstetrical history and physical exam CHIEF COMPLAINT / REASON FOR VISIT Keily Ng is a 32 y.o. . Patient's last menstrual period was 06/09/2018. Her Estimated Date of Delivery: 03/16/19 determined by LMP consistent with 8 week ultrasound. Gestational age is 12w1d. The patient presents for first obstetrical history and physical exam. Relationship with FOB: significant other, living together. Patient plans to breastfeed. Her is complicated by history of A1 gestational diabetes 2014, precipitous delivery 2014, delivery at 36 weeks 2009, chronic pain and fibromyalgia, chronic vaginitis, nausea and vomiting in , tension headache Nausea/vomiting: Persistent morning nausea with occasional emesis. Vaginal bleeding: Denies. Abdominal or pelvic pain, cramping, tenderness: Denies. Difficulty urinating: Denies dysuria, hematuria, or flank pain. Breast tenderness: Denies. Fatigue: Denies. Headache or vision changes: Denies headache today. Depression symptoms: Denies depression, anxiety, or suicidal thoughts. Pap smear history: Cervical dysplasia 2009 with normal follow-up Pap smears. The patient does have recurrent tension-type headaches. Her last headache was yesterday. She denies headache or vision changes today. She reports resolution of her headache with heat and massage. ALLERGIES Allergies Allergen Reactions ??? Bupropion Hcl Anxiety flush, anger MEDICATIONS Current Outpatient Prescriptions: ??? vit27,calcium/iron/FA (MULTIVITAMIN/MINERAL-) tablet, Take 1 tablet by mouth daily., Disp: , Rfl: REVIEW OF SYSTEMS General: No fever, [...] hair loss, intolerance of heat or cold PAST MEDICAL HISTORY Past Medical History: Diagnosis [...] History ??? Marital status: Single Spouse name: N/A ??? Number of children: 4 ??? Years of education: N/A Occupational History [...] under ??? Suicide Attempts Sister OBJECTIVE BP 90/58 Pulse 70 Temp 36.8 ??C Resp 16 Ht 153 cm Wt 67.1 kg LMP 06/09/2018 BMI 28.66 kg/m?? General: Well-developed, well-nourished female in no apparent distress. Mental: Alert and oriented times three. Affect pleasant. Mood happy. Neurological: Alert and oriented x3. Cranial nerves II through XII grossly intact. Reflexes 2+ at patella bilaterally. No gross motor or sensory deficits noted. Skin: No rashes or lesions Head: Normocephalic, atraumatic ENT: Posterior oropharynx without erythema or exudates. Normal dentition. Trachea midline, no cervical adenopathy, Vision and hearing grossly intact. Tympanic membranes pearly white bilaterally with positive light reflex. Nasal turbinates are not erythematous or edematous. Eyes: Sclerae without injection or icterus. Pupils equally round and reactive to light and accommodation bilaterally. Lymph Nodes: Neck supple. No cervical, supraclavicular or axillary lymphadenopathy. Thyroid: No thyromegaly or tenderness bilaterally. Breast: Breasts are bilaterally symmetrical. No masses, [...] guarding. Fundal height not palpated. heart tones auscultated at 158. Pelvic exam: Normal external female genitalia without lesions or abnormalities. Normal pubic hair distribution. Urethral meatus normal in appearance and without masses. Normal [place], Urethral and [place]'s glands. Well estrogenized vaginal mucosa. No vaginal lesions. The bladder and urethra are nontender to palpation. Normal multiparous cervix without lesions or abnormalities. The cervix is long, closed and thick. No cervical motion tenderness to palpation. Uterus is 12 wk size, mobile, and non nontender. Uterine descent is noted to be minimal. No adnexal masses or tenderness bilaterally. Rectal exam: No external hemorrhoids noted. No rectovaginal nodularity noted. Examination confirms the vaginal exam. Extremities: No clubbing cyanosis or edema. Nontender bilaterally. Spine: No spinal, paraspinal or costovertebral angle tenderness bilaterally. Gait: Normal. [place]: Yulisa Wahl LPN DIAGNOSTICS 12/18/2016 Pap smear: Negative for intraepithelial lesion or malignancy 09/02/2018 new OB labs: Pending 09/02/2018 cell free DNA: Pending 08/10/2018 Ob ultrasound: 1. ??Intrauterine at 8 week 3 day. ??Positive cardiac activity. 2. ??EDC by today's ultrasound is 03/19/2019 which is consistent with LMP dating. 3. ??Embryo, cardiac activity, and yolk sac visualized. 4. ??No adnexal masses or free fluid noted. ASSESSMENT / PLAN 32 y.o. at 12w1d who presents for first obstetrical history and physical exam. 1 Intrauterine at 12w1d. - New OB labs are obtained today per protocol. - The patient requests cell free DNA lab testing today. - The patient declines influenza immunization. 2 History of delivery at 36 weeks (2009) - I discussed the risk of delivery in this . - I reviewed the risks, benefits, alternatives, and indications of 17- hydroxyprogesterone injectionswith the patient. - I discussed with the patient that the use of 17-hydroxyprogesterone is to help decrease the risk for recurrent delivery during this by approximately 40%. [...] in . - The patient is asymptomatic. 7 Nausea and vomiting in - Symptomatic [...] a cool dark room, and sleep. - Dating: LMP: 06/09/2018 JOSE by LMP calculator: 03/16/2019 [facility]: [facility]'s provider: Dr. Baltazar - Labs: Are ordered today. - I discussed chromosomal abnormality screening, screening for neural tube defects, and cystic fibrosis testing. The patient desires genetic testing. Cell free DNA testing ordered. Genetic screening reviewed with patient: patient declines - Anticipated course of care: I discussed with the patient what to expect in regards to care including the rotating call schedule of the Facilities Clerk physicians, the routine labs, ultrasounds and immunizations that would be expected during , routine obstetrical visit schedule, and how to contact the clinic and the hospital. The patient asked appropriate questions these were answered for her. - Problem list reviewed and updated. - I reviewed routine obstetrical precautions, recommendations and instructions with the patient including movement and kick count instructions. - I reviewed miscarriage precautions with the patient. - I discussed routine healthy diet recommendations, exercise recommendations and weight gain recommendations in . - I recommend the patient see clinic nurse for OB education visit. - I will contact patient with the results of her new OB labs. - Follow up in 4 weeks. Jhonny Enriquez MD [employer] Window Installer - Obstetrics and Gynecology [facility] documented in this encounter Plan of Treatment Upcoming Encounters Date Type Specialty Care Team Description 08/30/2022 Clinical Communication Admitting/Central Scheduling 09/02/2022 Comprehensive Visit Endocrinology Ricardo Winkler APRN, C.N.P., D.N.P. [address] [place] [address] Scheduled Referrals Name Type Priority Associated Order Schedule Diagnoses Obstetrics and Outpatient Referral Routine Expect ed: Gynecology office 09/30/2018 visit (clinic) (Approximate) , Expires: 09/02/2021 documented as of this encounter Procedures Procedure Name Priority Date/Time Associated Diagnosis Comme nts CELL-FREE DNA Routine 09/02/2018 2:14 PM Examination Results for this SCREEN CDT Other Normal procedure ar e in First the results Trimester section. SYPHILIS TOTAL AB Routine 09/02/2018 2:14 PM Examination Prena jamilah Results for this W/ REFLEX S CDT Other Normal procedure are i n First the results Trimester section. Hyperemesis Gravidarum Mild With Personal History Gestational Diabetes Mellitus RUBELLA ANTIBODIES, Routine 09/02/2018 2:14 PM Examination Pre Results for this IGG CDT Other Normal procedure are i n First the results Trimester section. Hyperemesis Gravidarum Mild With Personal History Gestational Diabetes Mellitus CBC WITHOUT Routine 09/02/2018 2:14 PM Examination R esults for this DIFFERENTIAL, B CDT Other Normal procedure ar e in First the results Trimester section. Hyperemesis Gravidarum Mild With Personal History Gestational Diabetes Mellitus VARICELLA-ZOSTER Routine 09/02/2018 2:14 PM Examination Prenat al Results for this AB, IGG, S CDT Other Normal procedure are i n First the results Trimester section. Hyperemesis Gravidarum Mild With Personal History Gestational Diabetes Mellitus THYROID-STIMULATING Routine 09/02/2018 2:14 PM Examination Pre Results for this HORMONE-SENSITIVE CDT Other Normal procedure are in (S-TSH) First the results Trimester section. Hyperemesis Gravidarum Mild With Personal History Gestational Diabetes Mellitus HIV-1 P24 AG, Routine 09/02/2018 2:13 PM Examination Results for this HIV-1/2 AB CDT Other Normal procedure are i n ,P First the results Trimester section. Hyperemesis Gravidarum Mild With Personal History Gestational Diabetes Mellitus ABORH, RBC Routine 09/02/2018 2:13 PM Examination R esults for this CDT Other Normal procedure are i n First the results Trimester section. Hyperemesis Gravidarum Mild With Personal History Gestational Diabetes Mellitus HEPATITIS B SURFACE Routine 09/02/2018 2:13 PM Examination Pre Results for this ANTIGEN CDT Other Normal procedure are i n First the results Trimester section. Hyperemesis Gravidarum Mild With Personal History Gestational Diabetes Mellitus ANTIBODY SCREEN, B Routine 09/02/2018 2:13 PM Examination Pren atal Results for this CDT Other Normal procedure are i n First the results Trimester section. Hyperemesis Gravidarum Mild With Personal History Gestational Diabetes Mellitus documented in this encounter Results Cell-Free DNA Screen (09/02/2018 2:14 PM CDT) Component Value Ref Test Analysis Performed At [facility] Range Method Time Signature Result Summary Negative screen for aneuploidy 08/24 [facility] Y chromosome material not detected 3:08 PM [facility]ATORIES - [facility] Result Chromosome ?Result 09/07/20 18 [facility] 3:08 PM LABORATORIES - 13 ?low risk CD T [facility] 18 ?low risk [place] 21 ?low risk Y chromosome ?absent Number of 1 09/07/2018 [facility] Fetuses 3:08 PM [facility] - [facility] Method Circulating cell-free DNA was purified from the plasma 09/07/2018 [facility] component of anti-coagulated maternal whole blood and 3:08 PM LABORATORIES - converted into a genomic DNA library for sequencing on an [facility] Illumina [id number]. Reads were aligned to the human genome, [place] and a Z-score was generated for chromosomes 13, 18, 21, X, and Y. Each sample was also evaluated for the presence or absence of Y chromosome material. Disclaimer A positive result is not diagnostic of a chromosome 09/07/2018 [facility] abnormality. Likewise, a negative result does not ensure a n 3:08 PM LABORATORIES - unaffected . sex cannot be guaranteed based [facility] on the presence or absence of Y chromosome material alone. CAMPUS This test is not intended to identify pregnancies at risk for open neural tube defects. While results of this screen are highly accurate, false positive or false negative results may occur due to placental, maternal and/or mosaicism, as well as additional causes. Cell-free DNA screening does not replace the accuracy and precision of invasive cytogenetic testing via chorionic villus sampling or amniocentesis. This is a Laboratory Developed Test (LDT) and its performance characteristics determined by Laboratory Medicine and Pathology, [facility], [place], [place] in a manner consistent with CLIA requirements. It has not been cleared or approved by the U.S. Food and Drug Administration. This assay is considered a screen and is not diagnostic. This laboratory is certified under the Clinical Laboratory Improvement Amendments (CLIA) as qualified to perform high complexity clinical laboratory testing and is accredited by the [employer]. Released By Vicky Neumann, 09/07/2018 [facility] MKasia., Ph.D. 3:08 PM [facility] Reason for grand 09/07/2018 [facility] Referral multipartous 3:08 PM [facility] Specimen Blood 09/07/2018 [facility] 3:08 PM [facility] Maternal Height 60.23 09/07/2018 [facility] (inches) 3:08 PM LABORATORIES - T [facility] Maternal Weight 147.93 09/07/2018 [facility] 3:08 PM [facility]ATORIES - T [facility] Gestational Age 12 09/07/2018 [facility] (weeks) 3:08 PM [facility]ATORIES - T [facility] Gestational Age 1 09/07/2018 [facility] (days) 3:08 PM [facility] Method Used to LMP 09/07/2018 [facility] Determine Gest 3:08 PM LABORATORIES - Age [facility] Interpretation This specimen showed a normal representation of mate rial 09/07/2018 [facility] from chromosomes 13, 18, and 21. Chromosome Y material was 3:08 PM LABORATORIES - not detected, suggestive of a female fetus. The [facility] fraction was 13.7%. Clinical correlation is suggested, and CAMPUS additional diagnostic cytogenetic studies could be considered based on clinical features. This screen has an estimated negative predictive value greater than 99% (Purnima et al., Obstet Gynecol 119:890-901, 2012). A genetic consultation may be of benefit. A fraction of 4% or more is required to accurately detect trisomies 13, 18, and 21. fraction should not be used independently to interpret clinical significance. Specimen Anatomical Collection Method Collection Time Receive d Time (Source) Location / / Volume Laterality Blood (Blood, 09/02/2018 2:14 PM 09/03/20 18 9:22 Venous) CDT AM CDT Narrative [facility] - 09/07/2018 3:09 PM CDT Specimen Information: Specimen ID: [id number] Specimen Type: Blood Specimen Collection Start Date: 018 ??2:14 PM Specimen Received Date: 09/03/2018 ??9: 22 AM Specimen ID: [id number] Specimen Type: Blood Specimen Collection Start Date: 018 ??2:14 PM Specimen Received Date: 09/03/2018 ??9: 23 AM Jhonny Enriquez M.D. LAB GENETIC TESTING Performing Organization Address City/[facility] Code Phon e Number [facility] - [address] [place], [place] [address] [facility] Varicella-Zoster Antibody, IgG, Serum (09/02/2018 2:14 PM CDT) athologist Signature Varicella-Zost Positive 09/03/2018 [facility] er Ab, IgG, S 1:29 PM CDT [facility] [place] [facility] Comment: Results suggest response to immunization or prior exposure to the virus. ----REFERENCE VALUE---- Vaccinated: Positive (>=1.1 AI) Unvaccinated: Negative (<=0.8 AI) Varicella IgG Antibody 4.0 09/03/2018 1:29 P M CDT [facility] Specimen Anatomical Collection Method Collection Time Receive d Time (Source) Location / / Volume Laterality Blood (Blood, 09/02/2018 2:14 PM 09/03/20 18 Venous) CDT 11:20 AM CDT Jhonny Enriquez M.D. LAB MICROBIOLOGY - BLOOD ORD ERABLES Performing Organization Address City/[facility] Phon e Number [facility]- [address] [place], [place] [address] [place] [facility] Syphilis IgG Antibody with Reflex (09/02/2018 2:14 PM CDT) athologist Signature Syphilis IgG Negative Negative 09/03/2018 [facility] Ab, S 1:29 PM CDT [facility] Comment: No serologic evidence of exposu re to syphilis. Specimen Anatomical Collection Method Collection Time Receive d Time (Source) Location / / Volume Laterality Blood (Blood, 09/02/2018 2:14 PM 09/03/20 18 Venous) CDT 11:20 AM CDT Jhonny Enriquez M.D. LAB BLOOD ADD-ON Performing Organization Address City/[facility]/ZIP Code Phon e Number [facility]- [address] [place] [phone] [place] [facility] S-TSH (Thyroid-Stimulating Hormone - Sensitive) (09/02/2018 2:14 PM CDT) athologist Signature TSH, Sensitive 1.6 0.3 - 4.2 09/02/2018 [facility] mIU/L 4:[address] [facility] Comment: Biotin has been identified by the sean hensley as a potential interfering substance. ??Higher concentr ations of biotin may be found in multivitamins, hair/nail supple ments, and workout supplements. ??If the result does not ma [facility] clinical observations, repeat testing after patient refrains fr om the use of supplements for at least 12 hours. Specimen Anatomical Collection Method Collection Time Receive d Time (Source) Location / / Volume Laterality Blood (Blood, 09/02/2018 2:14 PM 09/02/20 18 3:45 Venous) CDT PM CDT Jhonny Enriquez M.D. LAB BLOOD ADD-ON Performing Organization Address City/[facility]/ZIP Code Phon e Number [facility] [address] [place] [phone] LAB Rubella Antibodies, IgG (09/02/2018 2:14 PM CDT) athologist Signature Rubella Ab, Positive 09/03/2018 [facility] IgG, S 1:29 PM CDT [facility] Comment: Results suggest response to immunization or prior exposure to the virus. ----REFERENCE VALUE---- Vaccinated: Positive (>=1.0 AI) Unvaccinated: Negative (<=0.7 AI) Rubella IgG Antibody Index 1.8 09/03/2018 1: 29 PM CDT [facility] Specimen Anatomical Collection Method Collection Time Receive d Time (Source) Location / / Volume Laterality Blood (Blood, 09/02/2018 2:14 PM 09/03/20 18 Venous) CDT 11:20 AM CDT Jhonny Enriquez M.D. LAB MICROBIOLOGY - BLOOD ORD ERABLES Performing Organization Address City/State/ZIP Code Phon e Number [facility]- [address] [facility], [place] [address] [place] [facility] (ABNORMAL) CBC without Differential (09/02/2018 2:14 PM CDT) [facility] Method Time Signature Hemoglobin 11.1 (L) 11.6 - 09/02/2018 [facility] 15.0 g/dL 2:31 PM CDT [facility] Hematocrit 34.1 (L) 35.5 - 09/02/2018 [facility] 44.9 % 2:31 PM CDT [facility] Erythrocytes 3.53 (L) 3.92 - 09/02/2018 [facility] 5.13 2:[address] [facility] x10(12)/L [facility] MCV 96.6 78.2 - 09/02/2018 [facility] 97.9 fL 2:31 PM CDT [facility] RBC Distrib Width 13.2 12.2 - 09/02/2018 [facility] 16.1 % 2:31 PM CDT [facility] Platelet Count 361 157 - 371 09/02/2018 [facility] x10(9)/L 2:31 PM CDT [facility] Leukocytes 14.2 (H) 3.4 - 9.6 09/02/2018 [facility] x10(9)/L 2:31 PM CDT [facility] Specimen Anatomical Collection Method Collection Time Receive d Time (Source) Location / / Volume Laterality Blood (Blood, 09/02/2018 2:14 PM 09/02/20 18 2:14 Venous) CDT PM CDT Jhonny Enriquez M.D. LAB BLOOD ADD-ON Performing Organization Address City/State/ZIP Code Phon e Number [facility]- [address] [place] [address] [place] [facility]- [address] [place] [address], [facility] [place] [facility] HIV-1 p24 Ag, HIV-1/2 Ab ,P (09/02/2018 2:13 PM CDT) P athologist Signature HIV Ag/Ab Negative Negative 09/03/2018 [facility] Scrn, 1:29 PM CDT [facility] Comment: Negative result does not rule out HIV in fection. If exposure to HIV infection occurred <14 d ays ago, contact the laboratory to request additi on of HIV-1 RNA detection / quantification test. HIV-1 p24 Ag Negative Negative 09/03/2018 1:2 9 PM CDT [facility], [facility] [place] [facility] Comment: Negative result does not rule out HIV in fection. If exposure to HIV infection occurred <14 d ays ago, contact the laboratory to request additi on of HIV-1 RNA detection / quantification test. HIV-1 Ab Negative Negative 09/03/2018 1:29 PM CDT [facility] Comment: Negative result does not rule out HIV in fection. If exposure to HIV infection occurred <14 d ays ago, contact the laboratory to request additi on of HIV-1 RNA detection / quantification test. HIV-2 Ab Negative Negative 09/03/2018 1:29 PM CDT [facility] Comment: Negative result does not rule out HIV in fection. If exposure to HIV infection occurred <14 d ays ago, contact the laboratory to request additi on of HIV-1 RNA detection / quantification test. Specimen Anatomical Collection Method Collection Time Receive d Time (Source) Location / / Volume Laterality Blood (Blood, 09/02/2018 2:13 PM 09/03/20 18 Venous) CDT 11:20 AM CDT Jhonny Enriquez M.D. LAB MICROBIOLOGY - BLOOD ORD ERABLES Performing Organization Address City/State/ZIP Code Phon e Number [facility]- [address] [place] [phone] [place] [facility] Hepatitis B Surface Antigen (09/02/2018 2:13 PM CDT) Patholo gist Method Time Signature HBs Antigen, Nonreactive Nonreactive 09/02/2018 [facility] S 10:03 PM CDT [facility] Comment: Biotin has been identified by the manufa cturer as a potential interfering substance. ??Higher concentr ations of biotin may be found in multivitamins, hair/nail supple ments, and workout supplements. ??If the result does not ma [facility] clinical observations, repeat testing after patient refrains fr om the use of supplements for at least 12 hours. Specimen Anatomical Collection Method Collection Time Receive d Time (Source) Location / / Volume Laterality Blood (Blood, 09/02/2018 2:13 PM 09/02/20 18 9:23 Venous) CDT PM CDT Jhonny Enriquez M.D. LAB MICROBIOLOGY - BLOOD ORD ERABLES Performing Organization Address City/State/ZIP Code Phon e Number [facility] [place] [address] [facility] Antibody Screen, RBC (with reflex Antibody ID) (09/02/2018 2:13 PM CDT) athologist Signature Antibody Screen NEG 09/02/2018 [facility] 11:06 PM CDT [facility] Specimen Anatomical Collection Method Collection Time Receive d Time (Source) Location / / Volume Laterality Blood (Blood, 09/02/2018 2:13 PM 09/02/20 18 9:25 Venous) CDT PM CDT Jhonny Enriquez M.D. LAB BLOOD BANK TEST ORDERABL ES Performing Organization Address City/[facility]/ZIP Code Phon e Number [facility] [place] [address] [facility] ABORh, RBC (09/02/2018 2:13 PM CDT) athologist Signature ABO Group O 09/02/2018 [facility] 11:06 PM CDT [facility] Rh Type POS 09/02/2018 [facility] 11:06 PM CDT [facility] Specimen Anatomical Collection Method Collection Time Receive d Time (Source) Location / / Volume Laterality Blood (Blood, 09/02/2018 2:13 PM 09/02/20 18 9:25 Venous) CDT PM CDT Jhonny Enriquez M.D. LAB BLOOD BANK TEST ORDERABL ES Performing Organization Address City/[facility]/ZIP Code Phon e Number [facility] [place] [address] [facility] documented in this encounter Visit Diagnoses Diagnosis Examination Other Normal Pregna ncy First Trimester (HCC) - Primary Hyperemesis Gravidarum Mild (H CC) With Personal History Gestatio nal Diabetes Mellitus (HCC) Headache Tension Chronic documented in this encounter Additional Health Concerns Assessment Noted Time PHQ-9 Depression Total Score: 13 12/04/2017 10:[address] documented as of this encounter Care Teams Roll Bucker Relationship Specialty Start Date End Date Yarelis Reyes M.D. PCP - General 05/08/17 01/03/21 [address] [facility] [place] [address] documented as of this encounter
--- OUTSIDE RECORDS SUMMARY | 2022-08-16 21:30 | XMS_ITS | Encounter Summary ---
:1985 Author Organization [facility] Address [address] [place] [address] Care Team Providers Name Role Phone Yarelis Reyes M.D. Primary Care Provider [phone] Encounter Details Date Type Department Care Team Description 11/04/2018 Ancillary Procedure Department of Jhonny Enriquez [facility] emergency department Other Normal Second Trimester; Obstetrics and M.DAmaris Wit h Personal History Gestational Diabetes Mellitus; Gynecology in Headache Tensi on Chronic [place], [place] [address] [facility] [id number] Social History Tobacco Use Types Packs/Day Years [...] do you attend worship or Never 2021 spiritism services? Do you belong to any clubs [...] Ricardo Winkler, SILVIO, C.N.P., D.N.P. [address] [place] [address] documented as of this encounter Procedures Procedure Name Priority Date/Time Associated Comments Diagnosis US OB ANATOMY RAD - Routine 11/04/2018 11:52 Examination Results f or this PEREZ (most inpatients AM COLLEGE ADMINISTRATOR Other procedure are in and all Normal the results outpatients) Second Trimester section. With Personal History Gestational Diabetes Mellitu s Headache Tension Chronic documented in this encounter Results US OB Anatomy Perez (11/04/2018 11:52 AM COLLEGE ADMINISTRATOR) Anatomical Region Laterality Modality Body, Ultrasound OB RST LOS, Ultrasound ARZ LOS N/A Ultrasound Specimen (Source) Anatomical Collection Method Collection Time Re ceived Time Location / / Volume Laterality 11/04/2018 12:05 PM COLLEGE ADMINISTRATOR Impressions 11/04/2018 12:09 PM COLLEGE ADMINISTRATOR IMPRESSION: 1. ??Intrauterine at 21 week 2 [...] Jhonny Enriquez MD Narrative 11/04/2018 12:09 PM COLLEGE ADMINISTRATOR EXAM: US OB ANATOMY PEREZ COMPARISON: None [...] %ile, 3.66 cm consistent with 21 w [place] 5 day heart rate: ??160 bpm. anatomic [...] %ile, 3.66 cm consistent with 21 w [place] 5 day heart rate: 160 bpm. anatomic [...] documented as of this encounter Care Teams Shoe Laster Relationship Specialty Start Date End Date Yarelis Reyes M.D. PCP - General 05/08/17 01/03/[address] [place] [address] documented as of this encounter
--- OUTSIDE RECORDS SUMMARY | 2022-08-16 21:30 | XMS_ITS | Encounter Summary ---
:1985 Author Organization [facility] Address [address] [place] [address] Care Team Providers Name Role Phone Yarelis Reyes M.D. Primary Care Provider [phone] Encounter Details Date Type Department Care Team Description 10/02/2018 Clinical Communication Department of Family Delaney Pineda [facility], [facility] in [place] [address] [address] [place] [phone] Social History Tobacco Use Types Packs/Day Years [...] or relatives? How often do you attend gnosticism or Never 2021 hoahaoism services? Do you belong to any clubs or No 01/25/2022 organizations such as gnosticism groups, unions, fraternal or athletic groups, or [...] Ricardo Winkler, SILVIO, C.N.P., D.N.P. [address] [place] [address] documented as of this encounter Visit Diagnoses Not on filedocumented in this encounter Additional Health Concerns Assessment Noted Time PHQ-9 Depression Total Score: 13 12/04/2017 10:[address] documented as of this encounter Care Teams Supervisor Car And Yard Relationship Specialty Start Date End Date Yarelis Reyes M.D. PCP - General 05/08/17 01/03/21 [address] [place] [address] documented as of this encounter
--- OUTSIDE RECORDS SUMMARY | 2022-08-16 21:31 | XMS_ITS | Encounter Summary ---
:1985 Author Organization [facility] Address [address] [place] [address] Care Team Providers Name Role Phone Yarelis Reyes M.D. Primary Care Provider Reason for Visit Reason Comments Headache 5+2 weeks gestation Encounter Details Date Type Department Care Team Description 07/16/2018 Office Visit Department of Funmi, Examination Pr enatal Other Normal First Trimester (Primary Dx); Obstetrics and Efren Phillips Bipolar I Depressed (HCC); Gynecology in [address] Located Within [facility]; [place], [place] With Personal Hist ory Gestational Diabetes Mellitus [address] [facility] [address] R[place]ERT[place] SCHROEDER [phone] [address] (Work) [phone] Social History Tobacco Use Types Packs/Day Years [...] or relatives? How often do you attend hindu or Never 2021 evangelical services? Do you belong to any clubs or No 01/25/2022 organizations such as hindu groups, unions, [employer] or athletic groups, or school groups? How [...] Reading Time Taken Comments Blood Pressure 98/62 07/16/2018 11:11 AM CDT Pulse - - Temperature - - Respiratory Rate - - Oxygen Saturation - - Inhaled Oxygen Concentration - - Weight 68.8 kg (151 lb 9.1 oz) 07/16/2018 11:11 AM CDT Height 153 cm (5' 0.24) 07/16/2018 11:11 AM CDT Body Mass Index 29.37 07/16/2018 11:11 AM CDT documented in this encounter Progress Jacqueline Pinzon M.D. - 07/16/2018 11:00 AM CDT S: Patient presents for evaluation in early . She was seen in the ER 4 days ago due to diarrhea. She presented to the ED and received IV fluids. She had onset of a headache the day after that.She has a history of headaches, but this is different. When she stands up, she has pressure in her holiness and behind her eye. The pain is dull and pounding, it is a pressure type pain. It doesn't hurt as much when she is sitting or lying down or after she stands for a while. This seems to have improved over the last couple of days. She has had the headache for 3 days. It is not worse with bright light or loud noises. She saw the eye doctor yesterday, and he didn't notice any abnormalities. She has no weakness, numbness, or tingling associated with this. She has no nausea or vomiting associated withit. She took tylenol 4 days ago and she tried flexeril for it without relief. She has noticed no newvision symptoms. REVIEW OF SYSTEMS: General: No fever, chills, or weight gain, + fatigue and unintentional weight loss HEENT: No sore throat, nasal congestion, or changes in hearing, + changes in vision since eye injury Cardiovascular: No chest pain, or irregular heartbeat, + racing heart Respiratory: No shortness of breath, cough, or wheezing Gastrointestinal: + nausea, vomiting, diarrhea, and abdominal pain, no constipation Genitourinary: No leaking urine, pain with urination, burning with urination, irregular vaginal bleeding, heavy periods, painful periods, abnormal vaginal discharge or leaking gas or stool Skin: No rashes or skin lesions Breasts: No masses or lumps, or discharge from the nipples Neuro: No difficulty with memory, numbness, tingling, or falls Psych: + anxiety, No depression or difficulty sleeping Endocrine: No excessive [...] ??? OTHER SURGICAL HISTORY 02/22/2007 Leep procedure O: General: Well-nourished female in no acute distress Cardiovascular: Regular rate and rhythm, no murmurs rubs or gallops Chest: Clear to auscultation bilaterally, no wheezes or rales Abdomen: soft, nontender, nondistended, normoactive bowel sounds Lower extremities: Nontender, no edema IMPRESSION/PLAN: 32 y.o. at 5w2d by LMP who presents for an acute OB visit in early due to a right-sided headache. 1. care: No specific issues were addressed today since this is a patient of Dr. Enriquez, and she will be seeing him next week for confirmation. 2. Headache: This does not seem migrainous in nature as she does not have photophobia, phonophobia, nausea, or vomiting. It is also different from her typical headaches. It does not seem consistent with a cluster headache. She has increasing symptoms when she stands up that eventually resolved. She has been dehydrated recently due to her recent diarrheal illness. Therefore, I think this is likely related to orthostatic hypotension associated with dehydration. She was encouraged to hydrate well, to change positions slowly, and she will return next week for follow-up. She has no neurologic symptoms at this point, but if her symptoms persist, further evaluation will likely be necessary. She should let us know if her symptoms worsen prior to that time. 3. History of delivery: The patient has a history of a delivery at 36 weeks. She will need to be offered progesterone injections with this . 4. History of bipolar disorder: EPDS questionnaire should be administered at the time of the next visit. Medications that the patient is taking for this condition should be evaluated at the time of thenext visit, as Ativan is listed and is not a safe medication in . 5. History of gestational diabetes: Recommend early diabetes screening with this due to this. This should be considered at the time she has her new OB labs drawn. 6. Followup: Within the next week with Dr. Enriquez for confirmation. documented in this encounter Plan of Treatment Upcoming Encounters Date Type Specialty Care Team Description 08/30/2022 Clinical Communication Admitting/Central Scheduling 09/02/2022 Comprehensive Visit Endocrinology Ricardo Winkler, SILVIO, C.N.P., D.N.P. [address] [place] [address] documented as of this encounter Visit Diagnoses Diagnosis Examination Other Normal Pregna ncy First Trimester (HCC) - Primary Bipolar I Depressed (HCC) Headache Dull With Personal History Gestatio nal Diabetes Mellitus (HCC) documented in this encounter Additional Health Concerns Assessment Noted Time PHQ-9 Depression Total Score: 13 12/04/2017 10:[address] documented as of this encounter Care Teams Supervisor Nut Processing Relationship Specialty Start Date End Date Yarelis Reyes M.D. PCP - General 05/08/17 01/03/21 [address] [place] [address] documented as of this encounter
--- OUTSIDE RECORDS SUMMARY | 2022-08-16 21:31 | XMS_ITS | Encounter Summary ---
:1985 Author Organization [facility] Address [address] [place] [address] Care Team Providers Name Role Phone Yarelis Reyes M.D. Primary Care Provider [phone] Encounter Details Date Type Department Care Team Description 06/01/2018 Clinical Communication Department of Internal Spencer Enriquez, [place] [address] [address] [facility] [phone] Social History Tobacco Use Types Packs/Day Years Used Date Smoking Tobacco: Former Cigarettes Quit : 2013 Smokeless Tobacco: Never Alcohol Use Standard Drinks/Week Comments Yes 0 (1 standard drink = 0.6 oz pure alcoho l) Alcohol Habits Answer Date Recorded How often do you have a drink containing alcohol? Monthly or less 01/25/2022 How many drinks containing alcohol do you have on a 1 or 2 01/25/2022 typical day when you are drinking? How often do you have six or more drinks on one Never 01/25/2022 occasion? Comment: Not asked Social Isolation Answer Date Recorded In a typical week, how many times do you More than three becki es a week 01/25/2022 talk on the phone with family, friends, or neighbors? How often do you get together with friends More than three t imes a week 01/25/2022 or relatives? How often do you attend orthodox or Never 2021 uatsdin services? Do you [...] this encounter Miscellaneous Notes Telephone Encounter - Monica Guthrie R.N. - 06/01/2018 3:49 PM CDT Called Keiyl. No answer. LM to call clinic back. Telephone Encounter - Jacqueline Choudhary M.D. - 06/01/2018 3:47 PM CDT I can see her at 1 pm tomorrow afternoon. Telephone Encounter - Monica Guthrie R.N. - 06/01/2018 10:46 AM CDT Spoke with Keily. Patient of Dr. Enriquez. States she was seen in the ED and has a ruptured ovarian cyst and two waiting to rupture. She would like to be seen here in as soon as possible but there are no openings with Dr. Enriquez until 06/22/2018. Patient says she does not want to wait to be seen because the pain is very severe and causing her to have difficulty making bowel movements. ED records areavailable in care everywhere. Patient willing to see any provider. Please advise as to when you would like this patient seen in clinic. Telephone Encounter - Juanis Holloway - 06/01/2018 9:28 AM CDT Patient states she has been in the ER with ovarian cysts and is requesting an appointment in [employer] [employer].First available is 06/22/18. She is wondering if she can get in any sooner than this. Please advise and call [phone] documented in this encounter Plan of Treatment Upcoming Encounters Date Type Specialty Care Team Description 08/30/2022 Clinical Communication Admitting/Central Scheduling 09/02/2022 Comprehensive Visit Endocrinology Ricardo Winkler APRN, C.N.P., D.N.P. [address] [place] [address] documented as of this encounter Visit Diagnoses Not on filedocumented in this encounter Additional Health Concerns Assessment Noted Time PHQ-9 Depression Total Score: 13 12/04/2017 10:[address] documented as of this encounter Care Teams Press Smith Helper Relationship Specialty Start Date End Date Yarelis Reyes M.D. PCP - General 05/08/17 01/03/21 [address] [place] [address] documented as of this encounter
--- OUTSIDE RECORDS SUMMARY | 2022-08-16 21:31 | XMS_ITS | Encounter Summary ---
:1985 Author Organization [facility] Address [address] [place] [address] Care Team Providers Name Role Phone Yarelis Reyes M.D. Primary Care Provider [phone] Encounter Details Date Type Department Care Team Description 07/26/2018 Nurse Triage [facility] Medicine, [facility], [place], [place] [address] [place] [address] Social History Tobacco Use Types Packs/Day Years [...] many times do you More than three ebcki es a week 01/25/2022 talk on the phone with family, friends, or neighbors? How often do you get together with friends More than three t imes a week 01/25/2022 or relatives? How often do you attend latter day or Never 2021 catholic services? Do you belong to any clubs or No 01/25/2022 organizations such as latter day groups, unions, fraternal or athletic groups, or [...] this encounter Miscellaneous Notes Telephone Encounter - Isabel Dietrich R.N. - 07/26/2018 9:23 AM CDT Patient was provided aftercare instructions. documented in this encounter Plan of Treatment Upcoming Encounters Date Type Specialty Care Team Description 08/30/2022 Clinical Communication Admitting/Central Scheduling 09/02/2022 Comprehensive Visit Endocrinology Ricardo Winkler, SILVIO, C.N.P., D.N.P. [address] [place] [address] documented as of this encounter Visit Diagnoses Not on filedocumented in this encounter Additional Health Concerns Assessment Noted Time PHQ-9 Depression Total Score: 13 12/04/2017 10:[address] documented as of this encounter Care Teams Crane Service Technician Relationship Specialty Start Date End Date Yarelis Reyes M.D. PCP - General 05/08/17 01/03/21 [address] [place] [address] documented as of this encounter
--- OUTSIDE RECORDS SUMMARY | 2022-08-16 21:31 | XMS_ITS | Encounter Summary ---
:1985 Author Organization [facility] Address [address] [place] [address] Care Team Providers Name Role Phone Yarelis Reyes M.D. Primary Care Provider [phone] Encounter Details Date Type Department Care Team Description 07/12/2018 Nurse Triage Department of [facility] Tita Mac R.N. Medicine, [facility], in [address] [place], [place] [address] [place] [address] [place] [address] [phone] Social History Tobacco Use Types Packs/Day Years Used Date Smoking Tobacco: Former Cigarettes 11/1995 - 2015 Smokeless Tobacco: Never Comments: [...] or relatives? How often do you attend cheondoism or Never 2021 episcopal services? Do you belong to any clubs or No 01/25/2022 organizations such as cheondoism groups, unions, fraternal or athletic groups, or [...] Winkler, SILVIO, C.N.P., D.N.P. [address] [place] [address] documented as of this encounter Visit Diagnoses Not on filedocumented in this encounter Additional Health Concerns Assessment Noted Time PHQ-9 Depression Total Score: 13 12/04/2017 10:[address] [facility] documented as of this encounter Care Teams Deputy Insurance Commissioner Relationship Specialty Start Date End Date Yarelis Reyes M.D. PCP - General 05/08/17 01/03/[address] [place] [address] documented as of this encounter
--- OUTSIDE RECORDS SUMMARY | 2022-08-16 21:31 | XMS_ITS | Encounter Summary ---
:[address] [facility] Address [address] [place] [address] Care Team Providers Name Role Phone Yarelis Reyes M.D. Primary Care Provider [phone] Encounter Details Date Type Department Care Team Description 07/16/2018 Nurse Triage Department of [facility] Agata Peguero, Medicine, [facility], R.N. in [place], [place] [address] [place] [address] Social History Tobacco Use Types Packs/Day Years [...] or relatives? How often do you attend taoist or Never 2021 confucianism services? Do you belong to any clubs or No 01/25/2022 organizations such as taoist groups, unions, fraternal or athletic groups, or [...] Ricardo Winkler, SILVIO, C.N.P., D.N.P. [address] [place] [address] documented as of this encounter Visit Diagnoses Not on filedocumented in this encounter Additional Health Concerns Assessment Noted Time PHQ-9 Depression Total Score: 13 12/04/2017 10:[address] documented as of this encounter Care Teams Corporate Responsibility Officer Relationship Specialty Start Date End Date Yarelis Reyes M.D. PCP - General 05/08/17 01/03/21 [address], [place] [address] documented as of this encounter
--- OUTSIDE RECORDS SUMMARY | 2022-08-16 21:31 | XMS_ITS | Encounter Summary ---
:1985 Author Organization [facility] Address [address] [place] [address] Care Team Providers Name Role Phone Yarelis Reyes M.D. Primary Care Provider [phone] Reason for Visit Reason Onset Date Comments Communication 07/29/2018 Patient called and i s in much worse pain. She says her right lung really hurts an d if she extends her arm everything hurts. She would lik e a nurse to call her back. [phone]. She us es [facility]. Encounter Details Date Type Department Care Team Description 07/29/2018 Clinical Communication Department of Branden Johnson [facility] Medicine, boogie, (Patient ca lled and [facility], in [place] Santoyo is in much worse [place], [place] [address] pain. She says her [address] right lung really [place], [place] [address] extends her arm [phone] everything hurt s. She (Work) would like a nurse to [phone] call her back. (Fax) [phone]. S he uses [facility]. ) Social History Tobacco Use Types Packs/Day Years [...] or relatives? How often do you attend confucianist or Never 2021 sikhism services? Do you belong to any clubs or No 01/25/2022 organizations such as confucianist groups, unions, fraternal or athletic groups, or [...] this encounter Miscellaneous Notes Telephone Encounter - Lila Shaver L.P.N. - 07/29/2018 5:46 PM CDT Explained to Keily if she is not getting any worse then she can wait until her appt with Dr. MEEKS tomorrow morning but if she gets the slightest bit worse she needs to get into the ER per Dr. MEEKS Telephone Encounter - Viri Lovelace L.P.NAmaris - 07/29/2018 2:58 PM CDT Please advise Telephone Encounter - Natalya Singh R.N. - 07/29/2018 2:54 PM CDT Returned patient call. She is currently Week gestation. Was seen in last and ED over . Continues with Amoxicillin twice/day and nebulizers every 4-6 hours. She is having some SOBwith activity with occasional dizziness. She states that this afternoon her right lung is hurting more with movement andbreathing. Would prefer office visit vs. ED due to childcare issues. Transferred to Dr. Baltazar's area. Telephone Encounter - Ana M Santoyo - 07/29/2018 2:53 PM CDT Patient called and is in much worse pain. She says her right lung really hurts and if she extends her arm everything hurts. She would like a nurse to call her back. [phone]. She uses [facility]. Telephone Encounter - Juanis Holloway - 07/29/2018 2:29 PM CDT Patient called again, she is worried because her right lung has been hurting more. She was transferred to the nurse triage line but the refused to triage her because she is . Please call patient [phone] Telephone Encounter - Jennifer Haro - 07/29/2018 11:02 AM CDT Patient called in she would like to see Dr. Baltazar today. She states she has pneumonia and bronchitis and is coughing up blood at times. She is also documented in this encounter Plan of Treatment Upcoming Encounters Date Type Specialty Care Team Description 08/30/2022 Clinical Communication Admitting/Central Scheduling 09/02/2022 Comprehensive Visit Endocrinology Ricardo Winkler APRN, C.N.P., D.N.P. [address] [place] [address] documented as of this encounter Visit Diagnoses Not on filedocumented in this encounter Additional Health Concerns Assessment Noted Time PHQ-9 Depression Total Score: 13 12/04/2017 10:[address] documented as of this encounter Care Teams Medical Lead Relationship Specialty Start Date End Date Yarelis Reyes M.D. PCP - General 05/08/17 01/03/21 [address] [place] [address] documented as of this encounter
--- OUTSIDE RECORDS SUMMARY | 2022-08-16 21:31 | XMS_ITS | Encounter Summary ---
:1985 Author Organization [facility] Address [address] [place] [address] Care Team Providers Name Role Phone Yarelis Reyes M.D. Primary Care Provider [phone] Encounter Details Date Type Department Care Team Description 06/19/2018 Clinical Communication Department of Physical [place] , Medicine and [facility], Rehabilitation in [place], [place] [address] [place] [address] [phone] Social History Tobacco Use Types Packs/Day Years [...] or relatives? How often do you attend religion or Never 2021 baptist services? Do you belong to any clubs or No 01/25/2022 organizations such as religion groups, unions, fraternal or athletic groups, or [...] this encounter Miscellaneous Notes Telephone Encounter - Jennifer Whittington, L.P.N. - 06/19/2018 1:37 PM CDT S - Injection Followup B - Patient had upper back trigger point injections injection done on 06/05/18 A - Pain level has improved by 70%, pain level 0/10 R - FYI message for Dr. Benson Patient states that she has not had any bad flare ups since the injections. She is less sensitive to the touch in that area and is going to PT and a chiropractor documented in this encounter Plan of Treatment Upcoming Encounters Date Type Specialty Care Team Description 08/30/2022 Clinical Communication Admitting/Central Scheduling 09/02/2022 Comprehensive Visit Endocrinology Ricardo Winkler APRN, C.N.P., D.N.P. [address] [place] [address] documented as of this encounter Visit Diagnoses Not on filedocumented in this encounter Additional Health Concerns Assessment Noted Time PHQ-9 Depression Total Score: 13 12/04/2017 10:23 AM Cristobal ROOT documented as of this encounter Care Teams Defect Repairer Glassware Relationship Specialty Start Date End Date Yarelis Reyes M.D. PCP - General 05/08/17 01/03/[address] [address] documented as of this encounter
--- OUTSIDE RECORDS SUMMARY | 2022-08-16 21:31 | XMS_ITS | Encounter Summary ---
:1985 Author Organization [facility] Address [address] [place] [address] Care Team Providers Name Role Phone Yarelis Reyes M.D. Primary Care Provider [phone] Encounter Details Date Type Department Care Team Description 06/05/2018 Hospital Encounter Department of Benson, Pain Low Back Chronic; Radiology in Darnell Castro M.D. Myalgia; [place], [address] Pain Musculoskeletal Widespread Chronic [place], [place] [address] [address] [place], [place] [phone] [address] (Work) [phone] Social History Tobacco Use Types Packs/Day Years [...] do you attend pentecostalism or Never 2021 oriental orthodox services? Do you belong to any clubs or No 01/25/2022 organizations such as pentecostalism groups, unions, fraternal or athletic groups, or [...] Sig Dispensed Refills Start Date End Date cyclobenzaprine Take 1 tablet (5 mg 30 tablet 0 05/12/2018 07/20/2018 (FLEXERIL) 5 mg total) by mouth 3 tabletIndications: Pain (three) times a day Musculoskeletal as needed for muscle Widespread Chronic spasms. DULoxetine (CYMBALTA) Take 1 capsule (30 180 capsule 0 05/1207/20/[address] mg total) by mouth capsuleIndications: at bedtime. Pain Musculoskeletal Widespread Chronic ibuprofen Take 800 mg by mouth 0 06/25 (for_ADVIL,MOTRIN) 200 daily. mg tablet LORazepam (for_ATIVAN) Take 0.5 mg by mouth 0 07/20/2018 0.5 mg tablet 3 (three) times a day as needed for anxiety. metroNIDAZOLE Insert into the 70 g 3 04/13/20182017 (METROGEL) 0.75 % vagina 2 (two) times vaginal gel a week. Start after complete oral Metronidazole Rx naproxen sodium Take 440 mg by mouth 0 07/20/2018 (ALEVE/ANAPROX) 220 mg as needed for pain tablet (pain). norelgestromin-ethinyl Apply 1 patch each 9 patch 3 03/2707/20/2018 estradiol (ORTHO EVRA) week for 3 weeks, 150-35 mcg/24 hr patch then remove for 1 week. documented as of this encounter Plan of Treatment Upcoming Encounters Date Type Specialty Care Team Description 08/30/2022 Clinical Communication Admitting/Central Scheduling 09/02/2022 Comprehensive Visit Endocrinology Ricardo Winkler APRN, C.N.P., D.N.P. [address] [place] [address] documented as of this encounter Procedures Procedure Name Priority Date/Time Associated Diagnosis Comme nts DX HIPS AND RAD - Routine 06/05/2018 2:46 Pain Low Back Ch ronic Results for PELVIS BILATERAL (most inpatients PM CDT Myalgia this procedure 2 VIEWS and all Pain Musculoskeletal are in the outpatients) Widespread Chronic results section. documented in this encounter Results DX Hips And Pelvis Bilateral 2 Views (06/05/2018 2:46 PM CDT) Anatomical Region Laterality Modality Lower Extremity, Pelvis, Hip, Musculoskeletal [facility]ST [facility] Digital Radiography Specimen (Source) Anatomical Collection Method Collection Time Re ceived Time Location / / Volume Laterality 06/05/2018 2:53 PM CDT Impressions 06/05/2018 2:54 PM CDT IMPRESSION: No acute osseous abnormality. No significant degenerative change. Narrative 06/05/2018 2:54 PM CDT EXAM: DX HIPS AND PELVIS BILATERAL 2 VIEWS COMPARISON: None FINDINGS: AP and frog-leg lateral views of the hips. No fracture, dislocation or significant degenerative change of eithe r hip. Sacroiliac joints appear normal. No significant degenerative change in th e lower lumbosacral spine. Nonobstructive bowel gas pattern. Procedure Note Juan Juarez M.D. - 06/05/2018Formattin g of this note might be different from the original. EXAM: DX HIPS AND PELVIS BILATERAL 2 VIE WS COMPARISON: None FINDINGS: AP and frog-leg lateral views of the hips. No fracture, dislocation or significant degenerative change of eithe r hip. Sacroiliac joints appear normal. No significant degenerative change in th e lower lumbosacral spine. Nonobstructive bowel gas pattern. IMPRESSION: No acute osseous abnormality . No significant degenerative change. Darnell [facility] documented in this encounter Visit Diagnoses Diagnosis Pain Low Back Chronic Myalgia Pain Musculoskeletal Widespread Chronic documented in this encounter Additional Health Concerns Assessment Noted Time PHQ-9 Depression Total Score: 13 12/04/2017 10:[address] documented as of this encounter Care Teams Health Equipment Servicer Relationship Specialty Start Date End Date Yarelis Reyes M.D. PCP - General 05/08/17 01/03/21 [address], [place] [address] documented as of this encounter
--- OUTSIDE RECORDS SUMMARY | 2022-08-16 21:31 | XMS_ITS | Encounter Summary ---
:1985 Author Organization [facility] Address [address] [place] [address] Care Team Providers Name Role Phone Yarelis Reyes M.D. Primary Care Provider [phone] Reason for Visit Reason Comments Vaginitis/Bacterial Vaginosis Encounter Details Date Type Department Care Team Description 04/10/2018 Office Visit Department of Jhonny Enriquez, Subacute And Chronic Vaginitis (Primary Dx); Obstetrics and M.DAmaris Acute Vaginit is Gynecology in [address] [place] [phone] Social History Tobacco Use Types Packs/Day Years [...] or relatives? How often do you attend adventism or Never 2021 rastafari services? Do you belong to any clubs or No 01/25/2022 organizations such as adventism groups, unions, fraternal or athletic groups, or [...] Sign Reading Time Taken Comments Blood Pressure 94/70 04/10/2018 11:21 AM CDT Pulse 80 04/10/2018 11:21 AM CDT Temperature - - Respiratory Rate 18 04/10/2018 11:21 AM CDT Oxygen Saturation - - Inhaled Oxygen Concentration - - Weight 71.2 kg (156 lb 15.5 oz) 04/10/2018 11:21 AM CDT Height 152 cm (4' 11.84) 04/10/2018 11:21 AM CDT Body Mass Index 30.82 04/10/2018 11:21 AM CDT documented in this encounter Progress Notes Jhonny Enriquez M.D. - 04/10/2018 11:30 AM CDT CHIEF COMPLAINT / REASON FOR VISIT Vaginal itching, irritation and discharge HISTORY OF PRESENT ILLNESS Keily Ng is a 32 y.o. with No LMP recorded. who complaints of recurrent vaginal itching, irritation and discharge. She reports the symptoms have been ongoing for 1 year. Her current symptoms have been ongoing for the last week. She was recently treated for Gardnerella vaginosis on 03/23/2018 and reports her symptoms have now returned. She has chronic, recurrent bacterial vaginosis over the last year. She has positive Gardnerella vaginosis on 04/07/2017, 10/17/2017, 01/05/2018, and 03/19/2018. She recently had negative Chlamydia and Gonorrhea testing. Vaginal irritation: Present Vaginal itching: Present Vaginal discharge: Present Vaginal odor: Present Vaginal bleeding: Vaginal spotting Fever or chills: Denies Problem with urination: Denies Problem with defecation: Denies She has a long history of irregular menses and polycystic ovarian syndrome. She just obtain medical insurance and has a prescription for control, Ortho Evra patch but she has not started this yet. She reports a negative test earlier this week. She does not think that she is . ALLERGIES Allergies Allergen Reactions ??? Bupropion Hcl Anxiety flush, anger MEDICATIONS Current Outpatient Prescriptions: ??? busPIRone (for_BUSPAR) 10 mg tablet, Take 1 tablet by mouth 2 (two) times a day., Disp: , Rfl: ??? DULoxetine (CYMBALTA) [address] capsule, Take 1 capsule (30 mg total) by mouth 2 (two) times a day. (Patient not taking: Reported on 04/10/2018 ), Disp: 180 capsule, Rfl: 3 ??? ibuprofen (for_ADVIL,MOTRIN) 200 mg tablet, Take 800 mg by mouth daily., Disp: , Rfl: ??? LORazepam (for_ATIVAN) 0.5 mg tablet, Take 0.5 mg by mouth 3 (three) times a day as needed for anxiety., Disp: , Rfl: ??? metroNIDAZOLE (FLAGYL) 500 mg tablet, Take 1 tablet (500 mg total) by mouth 2 (two) times a day for 7 days., Disp: 14 tablet, Rfl: 0 ??? [START ON 04/13/2018] metroNIDAZOLE (METROGEL) 0.75 % vaginal gel, Insert into the vagina 2 (two)times a week. Start after complete oral Metronidazole Rx, Disp: 70 g, Rfl: 3 ??? norelgestromin-ethinyl estradiol (ORTHO EVRA) 150-35 mcg/24 hr patch, Apply 1 patch each week for 3 weeks, then remove for 1 week. (Patient not taking: Reported on 04/10/2018 ), Disp: 9 patch, Rfl: 3 REVIEW OF SYSTEMS As per HPI otherwise negative. PROBLEM LIST: Patient Active Problem List Diagnosis ??? Depression Major Recurrent (HCC) ??? Bipolar I Depressed (HCC) ??? Headache Tension Chronic ??? Cervical Dysplasia Personal History ??? Polycystic Ovary Syndrome ??? Fibromyalgia ??? Obesity Body Mass Index 30-39.9 Adult ??? Subacute And Chronic Vaginitis OBJECTIVE BP 94/70 (BP Location: Right arm) Pulse 80 Resp 18 Ht 152 cm Wt 71.2 kg BMI 30.82 kg/m?? General: Well-developed, well-nourished female in no apparent distress. Mental: Alert and oriented times three. Abdomen: Soft, nontender, nondistended, positive bowel sounds. No organomegaly. No rebound, no guarding. Pelvic exam: External female genitalia is normal. Normal Bartholin, Urethral and [place]'s glands. Vaginal mucosa is erythematous with a small amount of hernandez discharge present in the posterior vaginal fornix. No vaginal lesions. Well estrogenized vaginal mucosa. Normal multi parous cervix without lesions or abnormalities. No cervical motion tenderness to palpation. The bladder and urethra are nontenderto palpation. Uterus is normal size, shape, consistency, anteflexed, mobile, and non nontender. No adnexal masses or tenderness bilaterally. Extremities: No clubbing cyanosis or edema. Nontender bilaterally. DIAGNOSTICS 04/10/2018 Vaginitis panel: pending 03/27/2018 chlamydia: Negative, gonorrhea: Negative 03/19/2018 chlamydia: Indeterminate, gonorrhea: Indeterminate 03/19/2018 Vaginitis panel: positive Gardnerella 01/05/2018 Vaginitis panel: positive Gardnerella 10/17/2017 Vaginitis panel: positive Gardnerella, positive candidiasis 04/07/2017 Vaginitis panel: positive Gardnerella, positive candidiasis ASSESSMENT / PLAN Keily Ng is a 32 y.o. female who complaints of recurrent vaginal itching, irritation and discharge. 1 Recurrent Bacterial vaginosis - Treatment: Metronidazole 500 mg p.o. b.i.d. x7 days - I then recommend the patient start on suppressive therapy with metronidazole vaginal ointment 1 applicator in vagina 2 times per week x4 months. - I recommend that the patient abstain from coitus during course of treatment - Perineal hygiene recommendations are reviewed with the patient. - I reviewed bathing recommendations with the patient. - I discussed use of [id number] Vagisil. - I recommend the patient wear cotton underwear. - Return to clinic as needed if symptoms persist or worsen. 2 Irregular menstruation - The patient reports a negative test earlier this week. - I recommended the patient repeat a test and if the 2nd test is negative then she should start Ortho Evra patch as prescribed. - Problem list reviewed and updated. - 25 minute visit with greater than 50% spent in counseling. Jhonny Enriquez MD Inductor Tester - Obstetrics and Gynecology [facility] documented in this encounter Plan of Treatment Upcoming Encounters Date Type Specialty Care Team Description 08/30/2022 Clinical Communication Admitting/Central Scheduling 09/02/2022 Comprehensive Visit Endocrinology Ricardo Winkler APRN, C.N.P., D.N.P. [address] [place] [address] documented as of this encounter Procedures Procedure Name Priority Date/Time Associated Diagnosis Comme nts VAGINITIS PANEL Routine 04/10/2018 11:47 AM Acute Vaginitis Re sults for this CDT procedure are i n the results section. documented in this encounter Results Vaginitis Panel - [facility] (04/10/2018 11:47 AM CDT) [facility] gist Method Time Signature Francia species, Negative Negative 04/10/2018 [facility] DNA 2:42 PM CDT [facility] Gardnerella Negative Negative 04/10/2018 [facility] vaginalis, DNA 2:42 PM CDT [facility] Trichomonas Negative Negative 04/10/2018 [facility] vaginalis, DNA 2:42 PM CDT [facility] Specimen Anatomical Collection Method Collection Time Receive d Time (Source) Location / / Volume Laterality Swab (Vagina) 04/10/2018 11:47 04/10/2018 AM CDT 12:42 PM CDT Jhonny Enriquez M.D. LAB MICROBIOLOGY - GENERAL O RDERABLES Performing Organization Address City/State/ZIP Code Phon e Number [facility] [address] [place] [address] [facility]- [address] [place] [address] [place] [address] [place] [address] [facility] documented in this encounter Visit Diagnoses Diagnosis Subacute And Chronic Vaginitis - Primary Acute Vaginitis documented in this encounter Additional Health Concerns Assessment Noted Time PHQ-9 Depression Total Score: 13 12/04/2017 10:[address] documented as of this encounter Care Teams Extrusion Machine Operator Relationship Specialty Start Date End Date Yarelis Reyes M.D. PCP - General 05/08/17 01/03/21 [address] [place] [address] documented as of this encounter
--- OUTSIDE RECORDS SUMMARY | 2022-08-16 21:31 | XMS_ITS | Encounter Summary ---
:1985 Author Organization [facility] Address [address] [place] [address] Care Team Providers Name Role Phone Yarelis Reyes M.D. Primary Care Provider [phone] Encounter Details Date Type Department Care Team Description 06/05/2018 Hospital Encounter Department of Benson, Pain Low Back Chronic; Laboratory Darnell Castro M.D. Myalgia; Medicine in [address] Pain Musculoskeletal Widespread Chronic [facility] [address] [address] [phone] [place], [place] (Work) [address] Social History Tobacco Use Types Packs/Day [...] do you attend christian or Never 2021 sabianist services? Do you belong to any clubs [...] Ricardo Winkler APRN, C.N.P., D.N.P. [address] [place] [address] documented as of this encounter Procedures Procedure Name Priority Date/Time Associated Diagnosis Comme nts HLA-B27, B Routine 06/05/2018 2:31 PM Pain Low Back Chronic Results for this CDT Myalgia procedure are in Pain Musculoskeletal the res ults Widespread Chronic section. documented in this encounter Results HLA B27 Associated Antigen Screening (06/05/2018 2:31 PM CDT) [facility] Method Time Signature HLA-B27 Result Negative Not 06/08/2018 [facility] Applicable 9:17 AM LABORATORIES - CDT [facility] HLA-B27 see below 06/08/2018 [facility] Interpretation 9:17 AM LABORATORIES - CDT [facility] Comment: HLA-B27 antigen was not detected. ----ADDITIONAL INFORMATION---- Method: Flow Cytometry Performing Laboratory CLIA# [id number] Specimen Anatomical Collection Method Collection Time Receive d Time (Source) Location / / Volume Laterality Blood (Blood, 06/05/2018 2:31 PM 06/06/20 18 Venous) CDT 10:08 AM CDT Darnell Benson M.D. LAB BLOOD NON ADD-ON Performing Organization Address City/State/ZIP Code Phon e Number [facility] - [address] [place], [place] [address] [facility] documented in this encounter Visit Diagnoses Diagnosis Pain Low Back Chronic Myalgia Pain Musculoskeletal Widespread Chronic documented in this encounter Additional Health Concerns Assessment Noted Time PHQ-9 Depression Total Score: 13 12/04/2017 10:[address] documented as of this encounter Care Teams Director [place] Relationship Specialty Start Date End Date Yarelis Reyes M.D. PCP - General 05/08/17 01/03/21 [address] [place] [address] documented as of this encounter
--- OUTSIDE RECORDS SUMMARY | 2022-08-16 21:31 | XMS_ITS | Encounter Summary ---
:1985 Author Organization [facility] Address [address] [place] [address] Care Team Providers Name Role Phone Yarelis Reyes M.D. Primary Care Provider [phone] Encounter Details Date Type Department Care Team Description 06/03/2018 Clinical Communication Department of Yulisa Wahl, Obstetrics and R.N. Gynecology in [phone] [place], [place] (Work) [address] [place] [address] Social History Tobacco Use Types Packs/Day Years Used Date Smoking Tobacco: Former Cigarettes Quit : 2016 Smokeless Tobacco: Never Alcohol Use Standard Drinks/Week [...] do you attend rastafarian or Never 2021 hoahaoism services? Do you [...] or slept in a long-term (including now)? Sex Assigned at Date Recorded Female 06/02/2018 2:38 PM CDT documented as of this encounter Miscellaneous Notes Telephone Encounter - Yulisa Wahl L.P.NAmaris - 06/04/2018 1:18 PM CDT Left detailed message for patient. Advised to call with any questions. Ultrasound order faxed to [facility]. Telephone Encounter - Jacqueline Choudhary M.D. - 06/04/2018 12:31 PM CDT Yes, please order an US pelvic and transvaginal at [facility] for 8 weeks. Diagnosis is ovarian cyst. Please let her know that we will be in touch with those results after she has the ultrasound performed. Ifshe has not heard from us within a week after the ultrasound, she should give us a call so that we can look into it. Telephone Encounter - Yulisa Wahl L.P.N. - 06/03/2018 1:25 PM CDT Spoke with patient. Notified of results from testing completed yesterday. Wondering if the patient needs a follow up appointment in our office or any additional lab work in the future? Patient states she thought you wanted her to have another ultrasound in 8 weeks? I did not see any orders. Please advise. documented in this encounter Plan of Treatment Upcoming Encounters Date Type Specialty Care Team Description 08/30/2022 Clinical Communication Admitting/Central Scheduling 09/02/2022 Comprehensive Visit Endocrinology Ricardo Winkler, SILVIO, C.N.P., D.N.P. [address] [place] [address] documented as of this encounter Visit Diagnoses Not on filedocumented in this encounter Additional Health Concerns Assessment Noted Time PHQ-9 Depression Total Score: 13 12/04/2017 10:[address] documented as of this encounter Care Teams Title Lawyer Relationship Specialty Start Date End Date Yarelis Reyes M.D. PCP - General 05/08/17 01/03/21 [address] [place] [address] documented as of this encounter
--- OUTSIDE RECORDS SUMMARY | 2022-08-16 21:31 | XMS_ITS | Encounter Summary ---
:1985 Author Organization [facility] Address [address] [place] [address] Care Team Providers Name Role Phone Yarelis Reyes M.D. Primary Care Provider Reason for Referral Outpatient (Routine) - Closed Specialty Diagnoses / Procedures Referred By Contact Refer red To Contact Obstetrics and Jhonny Enriquez M.D. [facility] [address] [place] [address] Referral ID Status Reason Start Date Expiration Date Visits Requ ested Visits Authorized [id number] Closed 07/20/2018 07/20/2019 1 1 Reason for Visit Reason Comments Routine Visit 5 6/7 weeks Outpatient (Routine) - Closed Specialty Diagnoses / Procedures Referred By Contact Refer red To Contact Obstetrics and Jhonny Enriquez M.D. [facility] [address] [place] [address] Referral ID Status Reason Start Date Expiration Date Visits Requ ested Visits Authorized [id number] Closed 07/07/2018 07/07/2019 1 1 Encounter Details Date Type Department Care Team Description 07/20/2018 Routine Department of Jhonny Enriquez, Mauricioanc y With Personal History Gestational Diabetes Mellitus (Primary Dx); Obstetrics and M.DAmaris Examination P renatal Other Normal First Trimester; Gynecology in Obesity Body M ass Index 30-39.9 Adult [place], [place] [address] [place] [address] Social History Tobacco Use Types [...] do you attend amish or Never 2021 mosque services? Do you [...] Sign Reading Time Taken Comments Blood Pressure 96/56 07/20/2018 2:28 PM CDT Pulse 74 07/20/2018 2:28 PM CDT Temperature - - Respiratory Rate 16 07/20/2018 2:28 PM CDT Oxygen Saturation - - Inhaled Oxygen Concentration - - Weight 69.3 kg (152 lb 12.5 oz) 07/20/2018 2:28 PM CDT Height 153 cm (5' 0.24) 07/20/2018 2:28 PM CDT Body Mass Index 29.6 07/20/2018 2:28 PM CDT documented in this encounter Progress Notes Jhonny Enriquez M.D. - 07/20/2018 2:45 PM CDT CHIEF COMPLAINT / REASON FOR VISIT Patient presents for obstetrical confirmation exam CHIEF COMPLAINT / REASON FOR VISIT Keily Ng is a 32 y.o. . Patient's last menstrual period was 06/09/2018. Her Estimated Date of Delivery: 03/16/19 determined by LMP. Gestational age is 5w6d. The patient presents for obstetrical confirmation exam. Her past is complicated by A1 gestational diabetes, precipitous delivery, depression, bipolar disorder, fibromyalgia, chronic pain syndrome. Relationship with FOB: significant other, not living together. The patient reports a positive home test on 07/07/2018. The patient is excited to be . The patient was seen last week for headache that was thought to be orthostatic hypotension so she with dehydration. Her headache has now resolved. Nausea/vomiting: Mild nausea without emesis Vaginal bleeding: Denies Abdominal or pelvic pain, cramping, tenderness: Denies Difficulty urinating: Denies dysuria, hematuria, or flank pain Breast tenderness: Denies Fatigue: Denies Headache or vision changes: As above Depression symptoms: Denies depression, anxiety, or suicidal thoughts ALLERGIES Allergies Allergen Reactions ??? Bupropion Hcl [...] Marijuana ??? Sexual activity: Yes Partners: Male control/ protection: Patch, None Other Topics Concern ??? Not on file [...] under ??? Suicide Attempts Sister OBJECTIVE BP 96/56 Pulse 74 Resp 16 Ht 153 cm Wt 69.3 kg LMP 06/09/2018 BMI 29.60 kg/m?? General: Well-developed, well-nourished female in no [...] palpated. heart tones not auscultated. Pelvic exam: Deferred Extremities: No clubbing cyanosis or edema. Nontender bilaterally. DIAGNOSTICS test: positive ASSESSMENT / PLAN 32 y.o. at 5w6d who presents for first obstetrical confirmation exam. 1 Intrauterine at 5w6d. - Congratulations given to the patient. - A 1st trimester dating ultrasound is ordered. The patient was schedule this in 3-4 weeks 2 History of delivery at 36 weeks - I will discuss progesterone injections with the patient. 3 History of precipitous delivery - I will discuss precipitous delivery with the patient 4 History of A1 gestational diabetes - I discussed the risk of recurrent gestational diabetes in this . - I recommend early diabetes screening in this . 5 Chronic headaches - I recommend the patient see her primary provider for management of her chronic headaches. - She is currently asymptomatic 6 Chronic pain syndrome and fibromyalgia - I recommend the patient continue to see her primary provider, physical therapy, chiropractor, and physical medicine provider for management of her chronic pain syndrome and fibromyalgia. 7 History of depression and bipolar disorder - The patient is asymptomatic. - Depression precautions in are reviewed the patient. - Dating: By LMP - Congratulations is given to the patient. - I will be more than happy to follow the patient during this . - I would like the patient follow up with clinic RN for OB education visit. - Patient will follow up for 1st trimester OB dating ultrasound. - I would like patient follow back up in 3 weeks for first OB history physical examination includingpelvic exam and Pap smear. - I briefly discussed labs. - I recommended we check labs in 3 weeks - Problem list reviewed and updated. - I reviewed routine obstetrical precautions, recommendations and instructions with the patient including movement and kick count instructions. - I reviewed miscarriage precautions with the patient. - I discussed routine healthy diet recommendations, exercise recommendations and weight gain recommendations in . - Follow up in 3 weeks. - 35 minute visit with greater than 50% spent in counseling. Jhonny Enriquez MD [employer] - Obstetrics and Gynecology [facility] documented in this encounter Plan of Treatment Upcoming Encounters Date Type Specialty Care Team Description 08/30/2022 Clinical Communication Admitting/Central Scheduling 09/02/2022 Comprehensive Visit Endocrinology Ricardo Winkler, SILVIO, C.N.P., D.N.P. [address] [place] [address] Scheduled Referrals Name Type Priority Associated Order Schedule Diagnoses Obstetrics and Outpatient Referral Routine Expect ed: Gynecology office 08/12/2018 visit (clinic) (Approximate) , Expires: 07/20/2021 documented as of this encounter Results US OB First Trimester (08/10/2018 1:42 PM CDT) Anatomical Region Laterality Modality Body, Ultrasound OB RST LOS, Ultrasound AMPARO ALVARES N/A Ultrasound Specimen (Source) Anatomical Collection Method [...] ovaries appeared normal. Yolk sac: ??0.31 cm [place]-rump length: ??1.86 cm consistent with 8 week [...] ovaries appeared normal. Yolk sac: 0.31 cm [place]-rump length: 1.86 cm consistent wi 8 week 3 day. IMPRESSION: 1. Intrauterine [...] Personal History Gestatio nal Diabetes Mellitus (HCC) - Primary Examination Other Normal Pregna ncy First Trimester (HCC) Obesity Body Mass Index 30-39.9 Adult With Personal History Gestatio nal Diabetes Mellitus (HCC) Examination Other Normal Pregna ncy First Trimester (HCC) Obesity Body Mass Index 30-39.9 Adult documented in this encounter Additional Health Concerns Assessment Noted Time PHQ-9 Depression Total Score: 13 12/04/2017 10:[address] documented as of this encounter Care Teams Fine Jewelry Sales Associate Relationship Specialty Start Date End Date Yarelis Reyes M.D. PCP - General 05/08/17 01/03/21 [address] [place] [address] documented as of this encounter
--- OUTSIDE RECORDS SUMMARY | 2022-08-16 21:31 | XMS_ITS | Encounter Summary ---
:1985 Author Organization [facility] Address [address] [place] [address] Care Team Providers Name Role Phone Yarelis Reyes M.D. Primary Care Provider Encounter Details Date Type Department Care Team Description 05/30/2018 [facility], [facility], [place], [place] [address] [place] [address] Social History Tobacco Use Types Packs/Day Years [...] do you attend yazidi or Never 2021 protestant services? Do you belong to any clubs [...] Telephone Encounter - Isabel Dietrich R.N. - 05/30/2018 2:26 PM CDT Patient was provided aftercare instructions. documented in this encounter Plan of Treatment Upcoming Encounters Date Type Specialty Care Team Description 08/30/2022 Clinical Communication Admitting/Central Scheduling 09/02/2022 Comprehensive Visit Endocrinology Ricardo Winkler, SILVIO, C.N.P., D.N.P. [address] [place] [address] documented as of this encounter Visit Diagnoses Not on filedocumented in this encounter Additional Health Concerns Assessment Noted Time PHQ-9 Depression Total Score: 13 12/04/2017 10:[address] documented as of this encounter Care Teams Talent Acquisition Sourcer Relationship Specialty Start Date End Date Yarelis Reyes M.D. PCP - General 05/08/17 01/03/[address] [place] [address] documented as of this encounter
--- OUTSIDE RECORDS SUMMARY | 2022-08-16 21:31 | XMS_ITS | Encounter Summary ---
:1985 Author Organization [facility] Address [address] [place] [address] Care Team Providers Name Role Phone Yarelis Reyes M.D. Primary Care Provider Encounter Details Date Type Department Care Team Description 06/02/2018 Hospital Encounter Department of Ronan Choudhary [facility] Medicine [place] [address] [address] [address] [phone] Social History Tobacco Use Types Packs/Day Years Used Date Smoking Tobacco: Former Cigarettes Quit : 2015 Smokeless Tobacco: Never Alcohol Use Standard Drinks/Week [...] do you attend nondenominational or Never 2021 yarsani services? Do you [...] C.N.P., D.N.P. [address] [place] [phone] documented as of this encounter Procedures Procedure Name Priority Date/Time Associated Diagnosis Comme nts CBC WITH Routine 06/02/2018 2:16 PM Pain Right Lower Resul ts for this DIFFERENTIAL, B CDT Quadrant procedure ar e in the results section. documented in this encounter Results (ABNORMAL) CBC with Differential, Blood (06/02/2018 2:16 PM CDT) [facility] Method Time Signature Hemoglobin 12.9 11.6 - 06/02/2018 [facility] 15.0 g/dL 2:19 PM CDT [facility] Hematocrit 38.9 35.5 - 06/02/2018 [facility] 44.9 % 2:19 PM CDT [facility] Erythrocytes 4.00 3.92 - 06/02/2018 [facility] 5.13 2:19 PM CDT [facility] MCV 97.3 78.2 - 06/02/2018 [facility] 97.9 fL 2:19 PM CDT [facility] RBC Distrib Width 13.4 12.2 - 06/02/2018 [facility] 16.1 % 2:19 PM CDT [facility] Platelet Count 401 (H) 157 - 371 06/02/2018 [facility] x10(9)/L 2:19 PM CDT [facility] Leukocytes 14.5 (H) 3.4 - 9.6 06/02/2018 [facility] x10(9)/L 2:19 PM CDT [facility] Neutrophils 11.17 (H) 1.56 - 06/02/2018 [facility] 6.45 2:19 PM CDT [facility](9[facility] Lymphocytes 2.27 0.95 - 06/02/2018 [facility] 3.07 2:19 PM CDT [facility](9[facility] Monocytes 0.75 0.26 - 06/02/2018 [facility] 0.81 2:19 PM CDT [facility](9[facility] Eosinophils 0.34 0.03 - 06/02/2018 [facility] 0.48 2:19 PM CDT [facility](9[facility] Basophils 0.01 0.01 - 06/02/2018 [facility] 0.08 2:19 PM CDT [facility] Specimen Anatomical Collection Method Collection Time Receive d Time (Source) Location / / Volume Laterality Blood (Blood, 06/02/2018 2:16 PM 06/02/20 18 2:16 Venous) CDT PM CDT Jacqueline Choudhary M.D. LAB BLOOD ADD-ON Performing Organization Address City/State/ZIP Code Phon e Number [facility] [address] [facility] [place] [address] [facility]- [address] [place] [address] [place] [address] [facility] documented in this encounter Visit Diagnoses Diagnosis Pain Right Lower Quadrant documented in this encounter Additional Health Concerns Assessment Noted Time PHQ-9 Depression Total Score: 13 12/04/2017 10:[address] documented as of this encounter Care Teams Dowel Inserting Machine Operator Relationship Specialty Start Date End Date Yarelis Reyes M.D. PCP - General 05/08/17 01/03/[address] [place] [phone] documented as of this encounter
--- OUTSIDE RECORDS SUMMARY | 2022-08-16 21:31 | XMS_ITS | Encounter Summary ---
:1985 Author Organization [facility] Address [address] [place] [address] Care Team Providers Name Role Phone Yarelis Reyes M.D. Primary Care Provider [phone] Reason for Visit Reason Comments Back Pain Outpatient (Routine) - Closed Specialty Diagnoses / Referred By Contact Referred To Contact Procedures Physical Medicine and Diagnoses Pain Low Back Chronic Vignesh [facility] Rehabilitation Yarelis hendrix M.D. [address] [place] [address] Referral ID Status Reason Start Date Expiration Date Visits Requ ested Visits Authorized [id number] Closed 03/19/2018 09/15/2018 1 1 Encounter Details Date Type Department Care Team Description 06/05/2018 Comprehensive Visit Department of Lech[place], Myalgia (Primary Dx); Physical Medicine Chris Castro, Pain Low B ack Chronic; and Hilario Schwartz Pain Musculoskeletal Widespread Chronic; in [place], [address] Pain Thoracic M yofascial; [address] Costochondritis; [address] [place], [place] Chronic Pelvic Inflammatory Disease; [place] [address] Fibromyalgia; [address] Pain Neck Mechanical Social History Tobacco Use Types Packs/Day Years [...] do you attend yarsanism or Never 2021 moravian services? Do you belong to any clubs [...] Patient Instructions Patient InstructionsChris Lechuga M.D. - 06/05/2018 1:30 PM CDT Images from the original note were not included. Patient Education Ice Pack Purpose The purpose of using an ice pack is to reduce pain, inflammation and swelling in an area of your body. Materials You can purchase an ice pack or make your own: ?? A commercial ice pack is available from a pharmacy or medical supply store. Place the ice pack kartik freezer to refreeze after each use. ?? To make your own ice pack, combine 1/3 cup rubbing alcohol with 2?[address] this mixtureinside two sealed freezer bags. Place in a freezer. The bag is ready to use when the contents are slushy. Place the ice pack in a freezer to refreeze after each use. Using an ice pack To apply the ice pack to the affected area: ?? Place a thin towel, either damp or dry, over the area where you will apply the ice pack. ?? Lay the ice pack on top of the towel. ?? Cover the ice pack with several layers of dry towels or a blanket for insulation. ?? Leave the ice pack in place for minutes. ?? Check your skin every five minutes. Precautions Remove the ice pack immediately if your skin in the area you are treating begins to lose its naturalredness. This color loss may indicate frostbite. This material is for your education and information only. This content does not replace medical advice, diagnosis or treatment. New medical research may change this information. If you have questions about a medical condition, always talk with your health care provider. This material is for your education and information only. This content does not replace medical advice, diagnosis or treatment. New medical research may change this information. If you have questions about a medical condition, always talk with your health care provider. ? 2003 [employer] ([facility]). All rights reserved. [id number] documented in this encounter Procedure Notes Chris Lechuga M.D. - 06/05/2018 1:30 PM CDTAssociated Order(s): PMR TRIGGER POINT INJECTION (PROCEDURE ONLY) Post-Procedure Diagnose(s): Myalgia; Pain Thoracic Myofascial Ultrasound-guided diagnostic/therapeutic left periscapular and perithoracic trigger point injections(rhomboid, intercostal, thoracic paraspinal, levator scapulae and upper trapezius muscles) Date/Time: 06/05/2018 3:49 PM Performed by: CHRIS LECHUGA Authorized by: CHRIS LECHUGA Care team members present: PMR nurse Indication: Perithoracic and periscapular myofascial pain Soft tissue site: Left thoracic Thoracic: Left rhomboid, intercostal, thoracic paraspinal, levator scapulae and upper trapezius myofascial pain Procedure details: Thoracic position: Seated Preparation: Patient was prepped and draped in usual sterile fashion Needle size: 25 G Needle length: 2.5 in Ultrasound guidance?: Yes Ultrasound probe (MHz): Linear mid-frequency Needle visualization: In-plane Needle approach: Lateral to medial Injected medications: The injected medication(s) listed was divided equally between the identified injection location(s) Injected medications Total volume injected (mL): 10 ml Total steroid injected (mg): 2 mL of Depo-Medrol (40 mg/ml) 8 mL bupivacaine 0.25 % (2.5 mg/mL) 40 mg methylPREDNISolone acetate 40 mg/mL Three or more muscles: Yes Post-procedure details: Thoracic procedure description: The patient was placed [...] with the patient and/or decision maker: yes [place] protocol: All relevant documentation and testing were [...] for the procedure.: yes Skin preparation: Chlorhexidine documented in this encounter Consult Notes Chris Lechuga M.D. - 06/05/2018 1:30 PM CDT SUBJECTIVE CHIEF COMPLAINT/REASON FOR VISIT Yarelis Reyes M.D. sent this patient for consultation regarding evaluation and management of Back Pain. HISTORY OF PRESENT ILLNESS Ms. Keily Ng is a 32 y.o. 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 The patient localizes the affected regions, in order of greatest severity, to the: left medialborder of the scapula, mid thoracic chest wall, low back, buttock, and neck. The left thoracic, posterior chest wall, and periscapular pain is started gradually approximately 2 years ago. The patient de nies having had any previous injury or traumatic events immediately prior to onset. 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 Over the past 6 months she has had a gradual onset of left- sided neck in bilateral low back and buttock pain. She does associate the onset of the neck and back pain with recent exposure to multiple different anti microbial agents though denies any associated injuries. She describes the pain is achy and tender, like a bruise, throughout diffuse region of her body. The pain is been relatively stable in terms of frequency and intensity, remains intermittent and highly variable in terms of intensity. In addition to feeling achyand tender, the patient also reports associated muscle tightness and burning tingling some items in the midback region. The pain seems to migrate throughout the upper back and can even migrate into theanterior chest wall at times, though seems to consistently start in the midthoracic region just medial to her scapula. Pain severity ranges from 1-8/10 and is made particularly worse with lifting, rotating her head and lifting her child, though can occur with essentially any type of movement or prolonged position. Alleviating factors include changing position. The patient has experienced reduced energy, poor sleep and difficulty coping as a result of the symptoms. The patient has received physical therapy, chiropractics, use of heat nice. After receiving chiropractic manipulations her pain severityactually worsen. She has been taking Aleve and Flexeril without benefit. She was started on Asnientq37 mg twice a day however was unable to tolerate the 1st dose due to sedation, falling asleep for 6 hr. She was instructed to try slower titration with just 1 dose at bedtime for week which she is considering. She was also recently recommended and prescribed Lyrica which she has not yet filled. Previous use of [id number] NSAIDs and Acetaminophen were not helpful. She did have partial response oral steroids. She reports that her mother an on both suffered from chronic widespread musculoskeletal pain in that they have both been diagnosed with ???spondylitis?? based on MRI imaging of the sacroiliac joint. Patient denies any falls in the past 12 months and currently ambulates without the use of any gait aid unlimited distances. She during pain flare she does actually require some assistance for bathing and dressing as it is quite painful to lift her arms. She lives with her significant other in a 3 floor home with 4 step entry and no other barriers to entry. The patient reports feeling generally weak at times, and notes having either localized or more generalized swelling throughout her body. She endorses substantial degree of muscle stiffness and spasms, chronic fatigue and difficulty with sleep dueto pain. Pertinent negatives on review of systems include; change in gait pattern, bowel or bladder dysfunction or incontinence, fevers, chills or recent illness, rash or skin change and weight loss. REVIEW OF SYSTEMS I have reviewed the complete or comprehensive Review of Systems as noted on the Health history form.I am only responding to those symptoms which are directly relevant to the specific indication for myconsultation, all of which were negative except for those mentioned in the history of present illness. I recommend that the patient follow up with their primary or referring provider to pursue any other symptoms which may be of concern. PATIENT HISTORY The following portions of the patient's history were reviewed and updated as appropriate: allergies,current medications, family history, medical history, social history, surgical history and problem list. OBJECTIVE GENERAL/CONSTITUTIONAL: Well-developed and will nourished appearing individual of stated age in no acute distress. MENTAL STATUS/PSYCHIATRIC: Appropriate mood and affect, grossly oriented- coherent speech and thoughtprocessing. NEUROLOGIC: Gait: Normal jeff and stride. Able to toe and heel walk. Strength: All major muscle groups of the upper and lower extremities have normal and symmetric muscle strength, bulk, and tone. Reflexes: Brisk and symmetric throughout the bilateral upper and lower extremities.Babinski and Villa???s signs are normal, bilaterally. SLR: Straight leg raise is for radicular pain or paresthesia bilaterally. MUSCULOSKELETAL: Inspection: No gross deformities or muscle bulk asymmetry. Spine: Normal pain-free range of motion. No gross axial skeletal deformities. Palpation: most focally tender to palpation over the left medial border of the scapula, upper trapezius, lower thoracic paraspinal muscles,mid gluteal muscles and bilateral PSIS. More diffuse tenderness throughout most other tendon insertion (tender points) described as sharp. Joint ROM: Joint range of motion is full and pain-free withoutobvious instability or laxity throughout the major joints of the upper and lower extremities. Neck: Spurling???s negative for radicular pain on the left. Shoulder: Positive Hawkin's maneuver on the left though this does not provoke the patient's typical pain symptoms. Negative painful mid-arc of abduction, Neer???s and Speed???s tests, bilaterally. Lumbar: negative lumbar quadrant test for radiating pain with lumbar extension. Hip: negative JAILENE and Stinchfield???s tests for reproduction of typical pain effecting the low back and buttock. SKIN: Grossly negative for erythema, breakdown or lesions in affected area. LYMPHATIC: No lymphadenopathy appreciated in the axillary or supraclavicular regions. CARDIOVASCULAR: Pedal and radial pulses and capillary refill normal. No upper or lower limb edema. RESPIRATORY: Breathing appears comfortable and regular. No dyspnea. DIAGNOSTICS IMAGING STUDIES: I reviewed the most recent radiographic images with the patient, read and agree with the Radiologist???s reports; Dx Cervical Spine 2-3 Views 03/27/2018: Reversal of the central cervicallordosis which may be due to patient positioning and/or muscular spasm. No appreciable acute osseousinjury of the cervical spine. If pain persists consider follow-up imaging. Dx Thoracic Spine 2 Views 03/27/2018 Mild/moderate mid thoracic curve convex right. Small amount degenerative disc space disease mid, lower thoracic/upper lumbar spine. Dx Lumbar Spine 2-3 Views 03/27/2018 5 lumbar type vertebral bodies. Mild mid lumbar curve convex left. Chest otherwise negative for acute findings. Dx hips/pelvis 06/05/18: No acute osseous abnormality. No significant degenerative change. LABORATORY ASSESSMENT: I reviewed the laboratory results that were made available on 06/05/18 showinga normal TSH and ESR. IMPRESSION, REPORT & PLAN ASSESSMENT / PLAN #1 Pain Low Back Chronic #2 Myalgia #3 Pain Musculoskeletal Widespread Chronic #4 Pain Thoracic Myofascial #5 Costochondritis #6 Chronic Pelvic Inflammatory Disease #7 Fibromyalgia #8 Pain Neck Mechanical Ms. Keily Ng presents with symptoms of chronic, diffuse left mid-upper back, perithoracic and periscapular, pain and myalgias and subacute mechanical neck and low back pain. Patient's historyleft mid-upper back pain is most consistent with a diagnosis of costochondritis. She is focally tender diffusely throughout the intercostal space and left lateral sternum and has no pain provocation with passive and active range of motion or manual muscle testing of the rotator cuff musculature. Her symptoms are to diffuse to represent thoracic radiculopathy or intercostal neuritis. She has no clinical findings of muscle bulk atrophy, focal weakness, sensory loss, reduced range of motion throughout. Patient's subacute symptoms of neck and low back pain are most consistent with cervical and lumbar myofascial pain neck and appreciate no potential correlation to her previous treatment with antimicrobial medications (tendonopathy). She does have pain localizing near the region of the sacral iliac joint and does report a family history of ankylosing spondylitis affecting her mother, who is now , and aunt. Moreover, she does describe some constitutional symptoms of chronic fatigue, sleep disturbance, persistent muscle stiffness and spasms, and ill-defined widespread swelling. Her clinical and examination findings are, however, were consistent with widespread myofascial pain and are, indeed, consistent with diagnosis of fibromyalgia. I reviewed my clinical findings with the patient and we discussed the etiology, prognosis, and treatment options for these diagnoses. I provided education on relevant physiologic and biomechanical principles, as well as, some recommendations regarding appropriate behavioral modifications and maintaining neutral posture. We also briefly touched on indications for a referral to Plastic surgery to assess the utility of breast reduction surgery for treatment of chronic perithoracic myofascial pain. A variety of available physical modalities and appropriate therapeutic interventions were discussed. We also discussed several classes of appropriate medications, their specific indications, and the role they could play for managing the current symptoms. I informed her that I am in agreement with the initiation of both Cymbalta and Lyrica for management of her chronic widespread musculoskeletal in myofascial pain. agree with her previous recommendations for Following our discussion, we decided to proceedwith the following treatment plan: - laboratory assessment, including HLA-B27 and the complete [facility] panel to rule out a systemic inflammatory process or endocrinopathy. - obtain x-ray images of the hips and pelvis to assess the sacroiliac joints to rule out the presence of early degenerative arthropathy - trigger point injections to the perithoracic and dorita scapular trigger point sites for diagnosticand therapeutic purposes. We reviewed the utility of this option in-depth and after discussing the indication and associated risks, the patient requested to receive the injections today. The procedure was performed immediately following this clinical encounter without complication. The patient was instructed to ice and avoid using heat or submerging the region in water for the next 3 days and to resume therapeutic exercise related to this diagnosis in 10 days. The patient was informed that we would be completing a post-procedure follow-up phone call in 2 weeks to assess their response. - initiate physical therapy to address diagnosis of costochondritis mechanical neck pain, a copy of this prescription was scanned into the chart. He may eventually expand on the orders to include treatment of mechanical low back pain, in the event that we are ablet to exclude a diagnosis of inflammatory sacroiliitis follow-up laboratory and radiographic assessment. - follow-up will be as needed, depending on how the patient responses to this treatment plan. EDUCATION We discussed the diagnosis and treatment plan in detail. Several appropriate questions were raised and were discussed thoroughly prior to dismissal. The patient expressed understanding of the content and was in agreement in with the plan. No apparent learning barriers were identified; learning preferences include listening. ADMINISTRATIVE BILLING I spent a total of 60 minutes in urrl-nd-hsoy consultation with the patient, with greater than 40 minutes spent on counseling and coordinating care. This time does not include the time needed for the trigger point injections, which required an additional 15 minutes. Signed by: Chris Lechuga M.D. 06/05/2018 2:27 PM documented in this encounter Plan of Treatment Upcoming Encounters Date Type Specialty Care Team Description 08/30/2022 Clinical Communication Admitting/Central Scheduling 09/02/2022 Comprehensive Visit Endocrinology Ricardo Winkler APRN, C.N.P., D.N.P. [address] [place] [address] documented as of this encounter Procedures Procedure Name Priority Date/Time Associated Diagnosis Comme nts PMR TRIGGER POINT Routine 06/05/2018 1:30 PM Myalgia Results for this INJECTION CDT Pain Thoracic procedure are in (PROCEDURE ONLY) Myofascial the results section. documented in this encounter Results Sedimentation Rate (06/05/2018 2:32 PM CDT) Analysis Performed At Patho logist Time Signature Sedimentation 15 0 - 29 06/05/2018 [facility] Rate, B mm/1 h 3:26 PM CDT [facility] Specimen Anatomical Collection Method Collection Time Receive d Time (Source) Location / / Volume Laterality Blood (Blood, 06/05/2018 2:32 PM 06/05/20 18 2:36 Venous) CDT PM CDT Chris Lechuga M.D. LAB BLOOD ADD-ON Performing Organization Address City/State/ZIP Code Phon e Number [facility] [address] [place] [address] LAB 25-Hydroxyvitamin D2 and D3 (06/05/2018 2:32 PM CDT) P athologist Signature 25-Hydroxy D2 <4.0 ng/mL 06/08/2018 [facility] 8:[address] [facility] 25-Hydroxy D3 35 ng/mL 06/08/2018 [facility] 8:20 PM CDT [facility] 25-Hydroxy D 35 ng/mL 06/08/2018 [facility] Total 8:20 PM CDT [facility] Comment: ----REFERENCE VALUE---- 25-HYDROXY D TOTAL (D2+D3) Optimum level s in the healthy population are 20-50, patients with bone disease may benefit from higher levels within this r yane. ----ADDITIONAL INFORMATION---- This test was developed and its performa nce characteristics determined by [facility] in a manner consistent with CLIA requirements. This test has not been cleared or approved by the [place] d and Drug Administration. Specimen Anatomical Collection Method Collection Time Receive d Time (Source) Location / / Volume Laterality Blood (Blood, 06/05/2018 2:32 PM 06/08/20 18 9:33 Venous) CDT AM CDT Chris Lechuga M.D. LAB BLOOD ADD-ON Performing Organization Address [facility]/ZIP Code Phon e Number [facility] [address] [place], [place] [address] [facility] Cortisol (06/05/2018 2:32 PM CDT) P athologist Signature Cortisol, S 7.3 mcg/dL 06/05/2018 [facility] 9:39 PM CDT [facility] Comment: Biotin has been identified by the sean hensley as a potential interfering substance. ??Higher concentr ations of biotin may be found in multivitamins, hair/nail supple ments, and workout supplements. ??If the result does not [facility] clinical observations, repeat testing after patient refrains fr om the use of supplements for at least 12 hours. ----REFERENCE VALUE---- a.m. : 4.8-20 p.m. : 2.5-12 Specimen Anatomical Collection Method Collection Time Receive d Time (Source) Location / / Volume Laterality Blood (Blood, 06/05/2018 2:32 PM 06/05/20 18 9:12 Venous) CDT PM CDT Chris Lechuga M.D. LAB BLOOD ADD-ON Performing Organization Address City/[facility]/ZIP Code Phon e Number [facility] [address] [place] [address] [facility] Celiac Disease Serology Placer (06/05/2018 2:32 PM CDT) Component Value Ref Test Analysis Performed At Patholo gist Range Method Time Signature Immunoglobulin A 204 61 - 06/06/2018 [facility] (IgA), S 356 9:44 AM LABORATORIES - mg/dL CDT [facility] Celiac Disease Negative serology. Celiac di sease unlikely. However, approximately 10% of 06/06/2018 [facility] Interpretation patients with celiac disease are seronegative. Also, patients who are already 7:53 PM LABORATORIES - adhering to a gluten-free diet may be seronegative. If melinda iac disease is CDT [facility] clinically suspected, consider HLA-DQ typing. CAMPUS Specimen Anatomical Collection Method Collection Time Receive d Time (Source) Location / / Volume Laterality Blood (Blood, 06/05/2018 2:32 PM 06/06/20 18 6:38 Venous) CDT AM CDT Chris Lechuga M.D. LAB BLOOD ADD-ON Performing Organization Address City/[facility]/ZIP Code Phon e Number [facility] LABORATORIES - [address] [phone] [facility] Cyclic Citrullinated Peptide Antibodies, IgG (06/05/2018 2:32 PM CDT) [facility] Method Time Signature Cyclic <15.6 <20.0 06/06/2018 [facility] Citrullinated (Negative 11:54 AM CDT LABORATORIES - Peptide Ab, S ) U [facility] Specimen Anatomical Collection Method Collection Time Receive d Time (Source) Location / / Volume Laterality Blood (Blood, 06/05/2018 2:32 PM 06/06/20 18 6:47 Venous) CDT AM CDT Chris Lechuga M.D. LAB BLOOD ADD-ON Performing Organization Address City/[facility]/ZIP Code Phon e Number [facility] LABORATORIES - [address] [address] [facility] LESIA (Antinuclear Antibodies) (06/05/2018 2:32 PM CDT) [facility] Method Time Signature Antinuclear Ab, 0.6 <=1.0 06/06/2018 [facility] S (Negative) 8:10 PM CDT LABORATORIES - U [facility] Specimen Anatomical Collection Method Collection Time Receive d Time (Source) Location / / Volume Laterality Blood (Blood, 06/05/2018 2:32 PM 06/06/20 18 6:47 Venous) CDT AM CDT Chris Lechuga M.D. LAB BLOOD ADD-ON Performing Organization Address City/[facility]/ZIP Code Phon e Number [facility] LABORATORIES - [address] [address] [facility] HLA B27 Associated Antigen Screening (06/05/2018 2:31 PM CDT) [facility] Method [place] Signature HLA-B27 Result Negative Not 06/08/2018 [facility] Applicable 9:17 AM LABORATORIES - CDT [facility] HLA-B27 see below 06/08/2018 [facility] Interpretation 9:17 AM LABORATORIES - CDT [facility] Comment: HLA-B27 antigen was not detected. ----ADDITIONAL INFORMATION---- Method: Flow Cytometry Performing Laboratory CLIA# [id number] Specimen Anatomical Collection Method Collection Time Receive d Time (Source) Location / / Volume Laterality Blood (Blood, 06/05/2018 2:31 PM 06/06/20 18 Venous) CDT 10:08 AM CDT Chris Lechuga M.D. LAB BLOOD NON ADD-ON Performing Organization Address City/State/ZIP Code Phon e Number [facility] - [address] [place], [place] [address] [facility] CRP (C-Reactive Protein) (06/05/2018 2:31 PM CDT) athologist Signature C-Reactive 6.2 <=8.0 mg/L 06/05/2018 [facility] Protein (CRP), 9:28 PM CDT [facility] Specimen Anatomical Collection Method Collection Time Receive d Time (Source) Location / / Volume Laterality Blood (Blood, 06/05/2018 2:31 PM 06/05/20 18 9:13 Venous) CDT PM CDT Chris Lechuga M.D. LAB BLOOD ADD-ON Performing Organization Address City/[facility]/ZIP Code Phon e Number [facility] [address] [place] [address] [facility] Rheumatoid Factor (06/05/2018 2:31 PM CDT) athologist Signature Rheumatoid <10 <15 IU/mL 06/05/2018 [facility] Factor, S 9:41 PM CDT [facility] Specimen Anatomical Collection Method Collection Time Receive d Time (Source) Location / / Volume Laterality Blood (Blood, 06/05/2018 2:31 PM 06/05/20 18 9:13 Venous) CDT PM CDT Chris Lechuga M.D. LAB BLOOD ADD-ON Performing Organization Address City/[facility]/ZIP Code Phon e Number [facility]- [address] [place] [address] [facility] S-TSH (Thyroid-Stimulating Hormone - Sensitive) (06/05/2018 2:31 PM CDT) P athologist Signature TSH, Sensitive 2.7 0.3 - 4.2 06/05/2018 [facility] mIU/L 4:33 PM CDT [facility] Comment: Biotin has been identified by the sean hensley as a potential interfering substance. ??Higher concentr ations of biotin may be found in multivitamins, hair/nail supple ments, and workout supplements. ??If the result does not ma [facility] clinical observations, repeat testing after patient refrains fr om the use of supplements for at least 12 hours. Specimen Anatomical Collection Method Collection Time Receive d Time (Source) Location / / Volume Laterality Blood (Blood, 06/05/2018 2:31 PM 06/05/20 18 2:36 Venous) CDT PM CDT Chris Lechuga M.D. LAB BLOOD ADD-ON Performing Organization Address City/State/ZIP Code Phon e Number [facility] [address] [place] [address] LAB CK (Creatine Kinase) (06/05/2018 2:31 PM CDT) athologist Signature Creatine Kinase 41 26 - 192 06/05/2018 [facility] (CK), S U/L 9:28 PM CDT [facility] Specimen Anatomical Collection Method Collection Time Receive d Time (Source) Location / / Volume Laterality Blood (Blood, 06/05/2018 2:31 PM 06/05/20 18 9:13 Venous) CDT PM CDT Chris Lechuga M.D. LAB BLOOD ADD-ON Performing Organization Address City/State/ZIP Code Phon e Number [facility]- [address] [place] [address] [facility] PMR Trigger Point Injection (Procedure Only) (06/05/2018 1:30 PM CDT) Narrative MMODAL - 06/05/2018 1:30 PM CDT Chris Lechuga M.D. ? 06/05/2018 ??7:55 PM Ultrasound-guided diagnostic/therapeutic left periscapular and perithoracic trigger point injections (r homboid, intercostal, thoracic paraspinal, levator scapulae and upper t rapezius muscles) Date/Time: 06/05/2018 3:49 PM Performed by: CHRIS LECHUGA Authorized by: CHRIS LECHUGA Care team members present: ??PMR nurse ?Indication: Perithoracic and periscap ular myofascial pain ??Soft tissue site: ??Left thoracic ??Thoracic: ??Left rhomboid, intercosta l, thoracic paraspinal, levator scapulae and upper trapezius myofascial pain Procedure details: ??Thoracic position: ??Seated ??Preparation: Patient was prepped and draped in usual sterile fashion ?Needle size: ??25 G ??Needle length: ??2.5 in ??Ultrasound guidance?: Yes ?Ultrasound probe (MHz): ??Linear mid- frequency ??Needle visualization: ??In-plane ??Needle approach: ??Lateral to medial ??Injected medications: The injected me dication(s) listed was divided equally between the identified injection location(s) ?? Injected medications ?Total volume injected (mL): ??10 ml ??Total steroid injected (mg): ??2 mL o f Depo-Medrol (40 mg/ml) ??8 mL bupivacaine 0.25 % (2.5 mg/mL) ??40 mg methylPREDNISolone acetate 40 m g/mL ??Three or more muscles: Yes ?? Post-procedure details: ??Thoracic procedure description: The p atient was placed [...] the patient and/or decision maker: yes ?? [place] protocol: ??All relevant documentation and testin g [...] documented in this encounter Visit Diagnoses Diagnosis Myalgia - Primary Pain Low Back Chronic Pain Musculoskeletal Widespread Chronic Pain Thoracic Myofascial Costochondritis Chronic Pelvic Inflammatory Disease Fibromyalgia Pain Neck Mechanical documented in this encounter Administered Medications Inactive Administered Medications - up to 3 most recent administrations Medication Order MAR Action Action Date Dose Rate Site bupivacaine 0.25 % (2.5 mg/mL) Given 06/05/2018 3:49 PM CDT 8 mL injection 8 mL (MARCAINE) 8 mL, injection, One-Time, Starting on Fri06/05/18 at 1549, For 1 dose methylPREDNISolone acetate injection 40 mg Given 06/05/2018 3:49 PM CDT 40 mg (DEPO-Medrol) 40 mg, injection, One-Time, Starting on Fri06/05/18 at 1549, For 1 dose documented in this encounter Additional Health Concerns Assessment Noted Time PHQ-9 Depression Total Score: 13 12/04/2017 10:[address] documented as of this encounter Care Teams County Engineer Relationship Specialty Start Date End Date Yarelis Reyes M.D. PCP - General 05/08/17 01/03/[address] [place] [address] documented as of this encounter
--- OUTSIDE RECORDS SUMMARY | 2022-08-16 21:31 | XMS_ITS | Encounter Summary ---
:1985 Author Organization [facility] Address [address] [place] [address] Care Team Providers Name Role Phone Yarelis Reyes M.D. Primary Care Provider [phone] Reason for Visit Reason Comments Other follow up from ER ? cyst rup turer. ? vaginal infection Encounter Details Date Type Department Care Team Description 06/02/2018 Office Visit Department of [place], Pain Right Low er Quadrant (Primary Dx); Obstetrics and Efren Phillips Vulvovaginitis; Gynecology in [address] Other Ovarian Cyst Right Side; [place], [place] Discharge Vaginal [address] [facility] [place] [address] [place] [phone] (Work) [phone] Social History Tobacco Use Types Packs/Day Years [...] do you attend adventism or Never 2021 zoroastrian services? Do you [...] Reading Time Taken Comments Blood Pressure 108/60 06/02/2018 1:25 PM CDT Pulse - - Temperature - - Respiratory Rate - - Oxygen Saturation - - Inhaled Oxygen Concentration - - Weight 70.5 kg (155 lb 6.8 oz) 06/02/2018 1:25 PM CDT Height - - Body Mass Index 30.51 04/10/2018 11:21 AM CDT documented in this encounter Progress Jacqueline Pinzon M.D. 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 female who presents for follow up of an ovarian cyst. The patient presented to the ER on 05/29/2018 after she had sudden onset of right-sided pelvic pain during intercourse. Pelvic ultrasound was performed and showed a uterus measuring 8.4 x 5.4 x 5.5 cm with normal echotexture of the myometrium in no masses in the endometrium noted. Within the right ovary, there was a heterogeneous lesion measuring 3.3 cm with internal septations and low level echoes. There was trace fluid in the cul-de-sac and surrounding the right adnexa. This was felt to be likely a hemorrhagic cyst. She reports that she had a lot of bloating in her abdomen. She was having difficulty passing BMs. If she moved quickly, she had onset of sharp pain from the right side to the left side. In the past, she was having persistent, severe pelvic pain that started on the right side but was radiating to the rest of the pelvis, into the thighs, and into the upper abdomen. Her white count was initially elevated to 15.9. Her urinalysis was negative for evidence of infection. There was trace occult blood noted on urinalysis. She was discharged to home and return to the ER on 06/2018 with increased abdominal bloating and pelvic pain particularly when trying to pass gas. She had been taking naproxen and [place] with some pain relief but still rating her pain 4/10. Her CRP was elevated at that time and white count had increased further to 19.3. CT scan of the abdomen and pelvis was ordered a persistent cystic lesion in the right adnexa with peripheral rim enhancement and mildly thickened wall measuring 4 cm. There was a 2nd lesion posterior to that measuring 2 cm. That appeared cystic in nature. No kidney or ureteral stones were noted. The rest of the CT scan was unremarkable. The pain has improved a lot. She did not have fevers or chills with the episode. She has a history of an appendectomy. Her menses are irregular. They have never been regular. She has gone for 8 months without menses in the past. She is not using anything for contraception at this point. She has a history of recurrent bacterial vaginosis. The discharge she has now is creamy and it's usually white and stringy when she has BV with a yellow tint. Now, she is noticing irritation on the external genitalia. She took diflucan yesterday and has not yet noted much improvement. The discharge has not change, and she still has discomfort externally, though it has improved some. She reports that she was prescribed a long-term course of Metrogel due to recurrent bacterial vaginosis by Dr. Enriquez, but she did not use this after she completed her 1 week of oral medication. Current Outpatient Prescriptions on File Prior to Visit Medication Sig Dispense Refill ??? HYDROcodone-acetaminophen (NORCO) 5-325 mg per tablet Take 1 tablet by mouth every 8 (eight) hours as needed for moderate pain or score 4-6 of 10 for up to 4 days. 15 tablet 0 ??? naproxen sodium (ALEVE/ANAPROX) 220 mg tablet Take 440 mg by mouth as needed for pain (pain). ??? cyclobenzaprine (FLEXERIL) 5 mg tablet Take 1 tablet (5 mg total) by mouth 3 (three) times a dayas needed for muscle spasms. (Patient not taking: Reported on 06/02/2018 ) 30 tablet 0 ??? DULoxetine (CYMBALTA) [address] capsule Take 1 capsule (30 mg total) by mouth at bedtime. (Patient not taking: Reported on 06/02/2018 ) 180 capsule 0 ??? ibuprofen (for_ADVIL,MOTRIN) 200 mg tablet Take 800 mg by mouth daily. ??? LORazepam (for_ATIVAN) 0.5 mg tablet Take 0.5 mg by mouth 3 (three) times a day as needed for anxiety. ??? metroNIDAZOLE (METROGEL) 0.75 % vaginal gel Insert into the vagina 2 (two) times a week. Start after complete oral Metronidazole Rx (Patient not taking: Reported on 06/02/2018 ) 70 g 3 ??? norelgestromin-ethinyl estradiol (ORTHO EVRA) 150-35 mcg/24 hr patch Apply 1 patch each week for3 weeks, then remove for 1 week. (Patient not taking: Reported on 06/02/2018 ) 9 patch 3 No current facility-administered medications on file prior to visit. Allergies Allergen Reactions ??? Bupropion Hcl Anxiety flush, anger SYSTEMS REVIEW GENERAL: No fevers, chills, fatigue, unintentional weight loss or weight gain. HEENT: No changes in vision or hearing, no sore throat or nasal congestion. CARDIOVASCULAR: No chest pain, irregular heartbeat or racing heart. RESPIRATORY: No shortness of breath, cough or wheeze. GASTROINTESTINAL: No nausea, vomiting, diarrhea, or constipation, + abdominal pain. GENITOURINARY: No pain or burning with urination, no heavy periods, or painful periods, + abnormal vaginal discharge, No leaking urine, leakingstool or gas. SKIN: No rashes or skin lesions. BREASTS: No masses or lumps, no discharge from the nipples. NEUROLOGIC: No difficulty with memory, numbness, tingling, falls. PSYCHIATRIC: No anxiety, depression, or difficulty sleeping. ENDOCRINE: No heat intolerance, cold intolerance, excessive thirst or hair loss. Vitals: 06/02/18 1325 BP: 108/60 Weight: 70.5 kg PHYSICAL EXAM General: Well nourished female, no acute distress Abdomen: Soft, nondistended, nontender, normoactive bowel sounds, no masses palpable Pelvic: External genitalia without lesions or abnormalities, normal pubic hair distribution, urethral meatus normal location appearance, without masses, vaginal mucosa pink and moist with a small amount of thin, white discharge present in the posterior vaginal fornix. Vaginal pH is acidic. Cervix appears parous and is without gross lesions or abnormalities. On bimanual examination, there is no cervical motion tenderness, the bladder and urethra are mildly tender, the uterus is mildly tender, there is mild right adnexal tenderness, no right adnexal masses are noted, there is no left adnexal tenderness and no left adnexal masses are noted. Lower extremities: Nontender, no edema IMPRESSION/PLAN Keily Ng is a 32 y.o. female who presents for follow up of a right adnexal cystic structure possibly causing her right lower quadrant pain and abnormal vaginal discharge and vulvovaginal irritation. 1. Right lower quadrant pain and right adnexal cystic structure: This appears to be an ovarian cyst on pelvic ultrasound. There was blood flow to the right ovary on ultrasound. However, her white countincreased from 15.9-19.3 with this pain. She is afebrile today and has been. Urinalysis did not showevidence of infection. It does not look like gonorrhea and chlamydia testing was performed. The patient's pain has improved significantly at this time. I am going to obtain a CBC today to assess her white blood count. If that has improved, we will continue with observation. However, if her white countis still very high, I would recommend treating with antibiotics for possible PID. I would recommend r epeat ultrasound in 8 weeks for follow-up of this cystic structure in the adnexa. 2. Abnormal vaginal discharge and vulvovaginal irritation: Vaginitis panel was obtained today. We will treat based upon these results. If she has another bacterial vaginosis infection, I would recommend retreating with Flagyl for 7 days followed by a suppressive course of topical medication for 6 months. If the vaginitis panel returns showing yeast only, I would recommend that she take another Diflucan tablet in 2 days, since she already took one yesterday. If she does not have improvement in her symptoms with that, I would recommend that she return for a vaginal fungal culture, as she may have a type of yeast that is resistant to this therapy. 3. Followup: Repeat ultrasound in 8 weeks.. We will be in touch with her with the lab results, and she should let us know if her symptoms do not improve with the treatment recommended. Administrative billin minutes of this 45 minute visit were spent in counseling the patient documented in this encounter Plan of Treatment Upcoming Encounters Date Type Specialty Care Team Description 08/30/2022 Clinical Communication Admitting/Central Scheduling 09/02/2022 Comprehensive Visit Endocrinology Ricardo Winkler APRN, C.N.P., D.N.P. [address] [place] [id number] documented as of this encounter Procedures Procedure Name Priority Date/Time Associated Diagnosis Comme nts VAGINITIS PANEL Routine 06/02/2018 2:53 PM Vulvovaginitis Resu lts for this CDT procedure are i n the results section. documented in this encounter Results (ABNORMAL) Vaginitis Panel - [facility] (06/02/2018 2:53 PM CDT) [facility] Method Time Signature Francia Positive (A) Negative 06/02/2018 [facility] species, DNA 5:41 PM CDT [facility] Gardnerella Negative Negative 06/02/2018 [facility] vaginalis, DNA 5:41 PM CDT [facility]- [facility] Trichomonas Negative Negative 06/02/2018 [facility] vaginalis, DNA 5:[address] [facility] Specimen Anatomical Collection Method Collection Time Receive d Time (Source) Location / / Volume Laterality Swab (Vagina) 06/02/2018 2:53 PM 06/02/20 18 4:44 CDT PM CDT Jacqueline Rauenhorst M.D. LAB MICROBIOLOGY - GENERAL O RDERABLES Performing Organization Address City/State/ZIP Code Phon e Number [facility]- [address] [place] [address] [facility]- [address] [place], [place] [address], [facility] (ABNORMAL) CBC with Differential, Blood (06/02/2018 2:16 PM CDT) [facility] Method Time Signature Hemoglobin 12.9 11.6 - 06/02/2018 [facility] 15.0 g/dL 2:19 PM CDT [facility] Hematocrit 38.9 35.5 - 06/02/2018 [facility] 44.9 % 2:[address] [facility] Erythrocytes 4.00 3.92 - 06/02/2018 [facility] 5.13 2:19 PM CDT [facility] x10(12)/L SYSTEM- [place] [facility] MCV 97.3 78.2 - 06/02/2018 [facility] 97.9 fL 2:[address] [facility] RBC Distrib Width 13.4 12.2 - 06/02/2018 [facility] 16.1 % 2:[address] [facility] Platelet Count 401 (H) 157 - 371 06/02/2018 [facility] x10(9)/L 2:[address] [facility] [place] [facility] Leukocytes 14.5 (H) 3.4 - 9.6 06/02/2018 [facility] x10(9)/L 2:[address] [facility] [place] [facility] Neutrophils 11.17 (H) 1.56 - 06/02/2018 [facility] 6.45 2:19 PM CDT [facility] x10(9)/[facility] Lymphocytes 2.27 0.95 - 06/02/2018 [facility] 3.07 2:19 PM CDT [facility] x10(9)/L [facility] Monocytes 0.75 0.26 - 06/02/2018 [facility] 0.81 2:19 PM CDT [facility] x10(9)/[facility] Eosinophils 0.34 0.03 - 06/02/2018 [facility] 0.48 2:19 PM CDT [facility] x10(9)/L [facility] Basophils 0.01 0.01 - 06/02/2018 [facility] 0.08 2:19 PM CDT [facility] x10(9)/L SYSTEM- [place] [facility] Specimen Anatomical Collection Method Collection Time Receive d Time (Source) Location / / Volume Laterality Blood (Blood, 06/02/2018 2:16 PM 06/02/20 18 2:16 Venous) CDT PM CDT Jacqueline Choudhary M.D. LAB BLOOD ADD-ON Performing Organization Address City/State/ZIP Code Phon e Number [facility]- [address] [address] [facility]- [address] [facility] [place] [place] [address], [facility] documented in this encounter Visit Diagnoses Diagnosis Pain Right Lower Quadrant - Primary Vulvovaginitis Other Ovarian Cyst Right Side Discharge Vaginal documented in this encounter Additional Health Concerns Assessment Noted Time PHQ-9 Depression Total Score: 13 12/04/2017 10:[address] documented as of this encounter Care Teams Tape Sewing Machine Operator Relationship Specialty Start Date End Date Yarelis Reyes M.D. PCP - General 05/08/17 01/03/[address] [place] [address] documented as of this encounter
--- OUTSIDE RECORDS SUMMARY | 2022-08-16 21:31 | XMS_ITS | Encounter Summary ---
:1985 Author Organization [facility] Address [address] [place] [address] Care Team Providers Name Role Phone Yarelis Reyes M.D. Primary Care Provider Reason for Visit Reason Comments Back Pain Neck Pain Appointment Request (Routine) - Closed Specialty Diagnoses / Procedures Referred By Contact Refer red To Contact Family Medicine Referral ID Status Reason Start Date Expiration Date Visits Requ ested Visits Authorized [id number] Closed 05/12/2018 05/12/2019 1 Encounter Details Date Type Department Care Team Description 05/12/2018 Office Visit Department of Family AliYves Pain [facility] MedicineSocorro M.D. [facility], in [address] (Primary Dx) [place], [place] [address] [facility] [address] [place], [place] [phone] [address] (Work) [phone] Social History Tobacco Use Types Packs/Day Years [...] do you attend religious or Never 2021 methodist services? Do you belong to any clubs [...] Reading Time Taken Comments Blood Pressure 100/60 05/12/2018 2:33 PM CDT Pulse 80 05/12/2018 2:33 PM CDT Temperature 36.4 ??C (97.5 ??F) 05/12/2018 2:33 PM CDT Respiratory Rate 16 05/12/2018 2:33 PM CDT Oxygen Saturation - - Inhaled Oxygen Concentration - - Weight 72.2 kg (159 lb 2.8 oz) 05/12/2018 2:33 PM CDT Height - - Body Mass Index 31.25 04/10/2018 11:21 AM CDT documented in this encounter Patient Instructions Patient InstructionsYves Sams M.D. - 05/12/2018 2:45 PM CDT 1. Pain Musculoskeletal Widespread Chronic_ -Advised to take Duloxetine at bedtime for least 4 weeks. -Encouraged to do trial of acupuncture for back pain. -External referral for physical therapy was given today. -Has an appointment with Dr. Benson on June 02, 2018. - DULoxetine (CYMBALTA) [address] capsule; Take 1 capsule (30 mg total) by mouth at bedtime. Dispense: 180 capsule; Refill: 0 documented in this encounter Progress Notes Yves Sams M.D. - 05/12/2018 2:45 PM CDT DEPARTMENT OF FAMILY MEDICINE IN [place] Chief Complaint Chief Complaint Patient presents with ??? Back Pain ??? Neck Pain HPI Back/neck pain: Patient reports she has been dealing with back pain for the past 4 years. She is also dealing been pain in multiple area such as neck, shoulder, hip and wrist pain for the past 4 months. Patient states she hurts all over her body and feels this more than fibromyalgia. Patient states her pain is getting worse. She has been taking Aleve and Flexeril without much relief. She does not know what to do with her pain. Patient was started on Duloxetine but stopped it on her own after taking it once due to side-effect(makes her very sleepy). Patient states she has pain all over the body(shoulder, neck, hips and back) and pain is becoming untolerable. Patient reports she has pain all over her body. She has an appointment with pain clinic in June 02, 2018. Patient states she has an appointment with physical therapy on . Patient has history of fibromyalgia. Patient states she does not like taking medications but wants her pain to get better. The following portions of the patient's history were reviewed and updated as appropriate in the EMR:allergies, current medications, medical history and problem list on 05/12/18 REVIEW OF SYSTEMS Negative review of major organ systems apart from that noted in the HPI PHSYCIAL EXAM Temperature: 36.4 ??C Resp Rate: 16 Blood Pressure: 100/60 Weight: 72.2 kg Constitutional: She appears well-developed and well-nourished. No distress. HENT: Head: Normocephalic and atraumatic. Cardiovascular: Normal rate, regular rhythm and normal heart sounds. No murmur heard. Pulmonary/Chest: Effort normal and breath sounds normal. No respiratory distress. She has no wheezes. She has no rales. Musculoskeletal: Right shoulder: She exhibits tenderness. Left shoulder: She exhibits tenderness. Right wrist: She exhibits tenderness. Left wrist: She exhibits tenderness. Right hip: She exhibits tenderness. Left hip: She exhibits tenderness. Cervical back: She exhibits tenderness. Thoracic back: She exhibits tenderness. Lumbar back: She exhibits tenderness. Right upper arm: She exhibits tenderness. Left upper arm: She exhibits tenderness. Skin: Uniformly pigmented 2- to 3-mm macules on sun-exposed surfaces including nose/forehead/cheeks, chest, upper back, and shoulders consistent with freckles. Psychiatric: Her speech is normal and behavior is normal. She exhibits a depressed mood. LABS/IMAGING No results found for this or any previous visit (from the past 24 hour(s)). ASSESSMENT AND PLAN Patient Instructions 1. Pain Musculoskeletal Widespread Chronic: Patient has widespread chronic musculoskeletal pain and has getting worse per patient. -Advised to resume Duloxetine 30 mg at bedtime for least 4 weeks. -Encouraged to do trial of acupuncture for back pain. -External referral for physical therapy was given today. -Has an appointment with Dr. Benson on June 02, 2018. -Encouraged to see behavioral therapy for chronic pain management. - DULoxetine (CYMBALTA) [address] capsule; Take 1 capsule (30 mg total) by mouth at bedtime. Dispense: 180 capsule; Refill: 0 Options for treatment and follow-up care were reviewed with the patient . Keily Ng and/or guardian engaged in the decision making process and verbalized understanding of the options discussedand agreed with the final plan. Yves Sams M.D. documented in this encounter Plan of Treatment Upcoming Encounters Date Type Specialty Care Team Description 08/30/2022 Clinical Communication Admitting/Central Scheduling 09/02/2022 Comprehensive Visit Endocrinology Ricardo Winkler APRN, C.N.P., D.N.P. [address] [place] [address] documented as of this encounter Visit Diagnoses Diagnosis Pain Musculoskeletal Widespread Chronic - Primary documented in this encounter Additional Health Concerns Assessment Noted Time PHQ-9 Depression Total Score: 13 12/04/2017 10:[address] documented as of this encounter Care Teams Taping Machine Operator Relationship Specialty Start Date End Date Yarelis Reyes M.D. PCP - General 05/08/17 01/03/21 [address] [place] [address] documented as of this encounter
--- OUTSIDE RECORDS SUMMARY | 2022-08-16 21:31 | XMS_ITS | Encounter Summary ---
:1985 Author Organization [facility] Address [address] [place] [address] Care Team Providers Name Role Phone Yarelis Reyes M.D. Primary Care Provider [phone] Encounter Details Date Type Department Care Team Description 06/05/2018 Hospital Encounter Department of Benson, Pain Low Back Chronic; Laboratory Darnell Castro M.D. Myalgia; Medicine in [address] Pain Musculoskeletal Widespread Chronic [facility] [address] [address] [phone] [place], [place] (Work) [address] Social History Tobacco Use [...] do you attend confucianist or Never 2021 nondenominational services? Do you [...] Ricardo Winkler APRN, C.N.P., D.N.P. [address] [place] [address] documented as of this encounter Procedures Procedure Name Priority Date/Time Associated Diagnosis Comme nts CELIAC DISEASE SEROLOGY Routine 06/05/2018 2:32 Pain Low Back Chronic Results for CASCADE, S PM CDT Myalgia this procedure Pain Musculoskeletal are in the Widespread Chronic results section. CYCLIC CITRULLINATED Routine 06/05/2018 2:32 Pain Low Ba ck Chronic Results for PEPTIDE ABS, IGG, S PM CDT Myalgia this procedure Pain Musculoskeletal are in the Widespread Chronic results section. TISSUE TRANSGLUTAMINASE Routine 06/05/2018 2:32 R esults for (TTG) AB, IGA, S PM CDT this proced ure are in the results section. 25-HYDROXYVITAMIN D2 Routine 06/05/2018 2:32 Pain Low Ba ck Chronic Results for AND D3, S PM CDT Myalgia this procedure Pain Musculoskeletal are in the Widespread Chronic results section. SEDIMENTATION RATE, B Routine 06/05/2018 2:32 Pain Low B ack Chronic Results for PM CDT Myalgia this procedure Pain Musculoskeletal are in the Widespread Chronic results section. ANTINUCLEAR ABS (LESIA), Routine 06/05/2018 2:32 Pain Low Back Chronic Results for S PM CDT Myalgia this procedure Pain Musculoskeletal are in the Widespread Chronic results section. CORTISOL, S Routine 06/05/2018 2:32 Pain Low Back Ch ronic Results for PM CDT Myalgia this procedure Pain Musculoskeletal are in the Widespread Chronic results section. RHEUMATOID FACTOR, S/P Routine 06/05/2018 2:31 Pain Low Back Chronic Results for PM CDT Myalgia this procedure Pain Musculoskeletal are in the Widespread Chronic results section. C-REACTIVE PROTEIN Routine 06/05/2018 2:31 Pain Low Back Chronic Results for (CRP), S/P PM CDT Myalgia this procedure Pain Musculoskeletal are in the Widespread Chronic results section. THYROID-STIMULATING Routine 06/05/2018 2:31 Pain Low Sue k Chronic Results for HORMONE-SENSITIVE PM CDT Myalgia this procedure (S-TSH) Pain Musculoskeletal are in the Widespread Chronic results section. CREATINE KINASE (CK), S Routine 06/05/2018 2:31 Pain Low Back Chronic Results for PM CDT Myalgia this procedure Pain Musculoskeletal are in the Widespread Chronic results section. documented in this encounter Results tTG (Tissue Transglutaminase), Antibody, IgA (06/05/2018 2:32 PM CDT) Patholo gist Method Time Signature Tissue <1.2 <4.0 06/06/2018 [facility] Transglutaminase Ab, (Negative 4:59 PM CDT LABORAT ORIES - IgA, S ) U/mL [facility] Specimen Anatomical Collection Method Collection Time Receive d Time (Source) Location / / Volume Laterality Blood 06/05/2018 2:32 PM 8 4:59 CDT PM CDT Darnell Benson M.D. LAB BLOOD ADD-ON Performing Organization Address City/State/ZIP Code Phon e Number [facility]IES - [address] [place], [place] [address] [facility] Sedimentation Rate (06/05/2018 2:32 PM CDT) Analysis Performed At Patho logist Time Signature Sedimentation 15 0 - 29 06/05/2018 [facility] Rate, B mm/1 h 3:26 PM CDT [facility] Specimen Anatomical Collection Method Collection Time Receive d Time (Source) Location / / Volume Laterality Blood (Blood, 06/05/2018 2:32 PM 06/05/20 18 2:36 Venous) CDT PM CDT Darnell Benson M.D. LAB BLOOD ADD-ON Performing Organization Address City/State/ZIP Code Phon e Number [facility] [address] [place] [address] LAB 25-Hydroxyvitamin D2 and D3 (06/05/2018 2:32 PM CDT) P athologist Signature 25-Hydroxy D2 <4.0 ng/mL 06/08/2018 [facility] 8:20 PM CDT [facility] 25-Hydroxy D3 35 ng/mL 06/08/2018 [facility] 8:20 PM CDT [facility] 25-Hydroxy D 35 ng/mL 06/08/2018 [facility] Total 8:20 PM CDT [facility] Comment: ----REFERENCE VALUE---- 25-HYDROXY D TOTAL (D2+D3) Optimum level s in the healthy population are 20-50, patients with bone disease may benefit from higher levels within this r yane. ----ADDITIONAL INFORMATION---- This test was developed and its performa nce characteristics determined by [facility] in a manner consistent with CLIA requirements. This test has not been cleared or approved by the [place] d and Drug Administration. Specimen Anatomical Collection Method Collection Time Receive d Time (Source) Location / / Volume Laterality Blood (Blood, 06/05/2018 2:32 PM 06/08/20 18 9:33 Venous) CDT AM CDT Darnell Benson M.D. LAB BLOOD ADD-ON Performing Organization Address City/[facility] Code Phon e Number [facility] [address] [place], [place] [address] [place] [address] CENTER Cortisol (06/05/2018 2:32 PM CDT) athologist Signature Cortisol, S 7.3 mcg/dL 06/05/2018 [facility] 9:39 PM CDT [facility] Comment: Biotin has been identified by the sean hensley as a potential interfering substance. ??Higher concentr ations of biotin may be found in multivitamins, hair/nail supple ments, and workout supplements. ??If the result does not ma [facility] clinical observations, repeat testing after patient refrains fr om the use of supplements for at least 12 hours. ----REFERENCE VALUE---- a.m. : 4.8-20 p.m. : 2.5-12 Specimen Anatomical Collection Method Collection Time Receive d Time (Source) Location / / Volume Laterality Blood (Blood, 06/05/2018 2:32 PM 06/05/20 18 9:12 Venous) CDT PM CDT Darnell Benson M.D. LAB BLOOD ADD-ON Performing Organization Address City/[facility]/ZIP Code Phon e Number [facility] [address] [place] [address] [facility] Celiac Disease Serology [place] (06/05/2018 2:32 PM CDT) Component Value Ref Test Analysis Performed At [facility] Range Method Time Signature Immunoglobulin A 204 61 - 06/06/2018 [facility] (IgA), S 356 9:44 AM LABORATORIES - mg/dL CDT [facility] Celiac Disease Negative serology. Celiac di sease unlikely. However, approximately 10% of 06/06/2018 [facility] Interpretation patients with celiac disease are seronegative. Also, patients who are already 7:53 PM LABORATORIES - adhering to a gluten-free diet may be seronegative. If melinda iac disease is CDT [facility] highly clinically suspected, consider HLA-DQ typing. CAMPUS Specimen Anatomical Collection Method Collection Time Receive d Time (Source) Location / / Volume Laterality Blood (Blood, 06/05/2018 2:32 PM 06/06/20 18 6:38 Venous) CDT AM CDT Darnell Benson M.D. LAB BLOOD ADD-ON Performing Organization Address [facility] Phon e Number [facility]IES - [address] [place] [address] [facility] Cyclic Citrullinated Peptide Antibodies, IgG (06/05/2018 2:32 PM CDT) [facility] Method [place] Signature Cyclic <15.6 <20.0 06/06/2018 [facility] Citrullinated (Negative 11:54 AM CDT LABORATORIES - Peptide Ab, S ) U [facility] Specimen Anatomical Collection Method Collection Time Receive d Time (Source) Location / / Volume Laterality Blood (Blood, 06/05/2018 2:32 PM 06/06/20 18 6:47 Venous) CDT AM CDT Darnell Benson M.D. LAB BLOOD ADD-ON Performing Organization Address City/[facility] Phon e Number [facility] - [address] [place] [address] [facility] LESIA (Antinuclear Antibodies) (06/05/2018 2:32 PM CDT) [facility] Method Time Signature Antinuclear Ab, 0.6 <=1.0 06/06/2018 [facility] S (Negative) 8:10 PM CDT LABORATORIES - U [facility] Specimen Anatomical Collection Method Collection Time Receive d Time (Source) Location / / Volume Laterality Blood (Blood, 06/05/2018 2:32 PM 06/06/20 18 6:47 Venous) CDT AM CDT Darnell Benson M.D. LAB BLOOD ADD-ON Performing Organization Address City/State/ZIP Code Phon e Number [facility] - [address] [place], [place] [address] [facility] CRP (C-Reactive Protein) (06/05/2018 2:31 PM CDT) athologist Signature C-Reactive 6.2 <=8.0 mg/L 06/05/2018 [facility] Protein (CRP), 9:28 PM CDT [facility] Specimen Anatomical Collection Method Collection Time Receive d Time (Source) Location / / Volume Laterality Blood (Blood, 06/05/2018 2:31 PM 06/05/20 18 9:13 Venous) CDT PM CDT Darnell Benson M.D. LAB BLOOD ADD-ON Performing Organization Address City/[facility]/ZIP Code Phon e Number [facility]- [address] [place] [address] [facility] Rheumatoid Factor (06/05/2018 2:31 PM CDT) athologist Signature Rheumatoid <10 <15 IU/mL 06/05/2018 [facility] Factor, S 9:41 PM CDT [facility] Specimen Anatomical Collection Method Collection Time Receive d Time (Source) Location / / Volume Laterality Blood (Blood, 06/05/2018 2:31 PM 06/05/20 18 9:13 Venous) CDT PM CDT Darnell Benson M.D. LAB BLOOD ADD-ON Performing Organization Address City/[facility]/ZIP Code Phon e Number [facility]- [address] [place] [address] [facility] S-TSH (Thyroid-Stimulating Hormone - Sensitive) (06/05/2018 2:31 PM CDT) athologist Signature TSH, Sensitive 2.7 0.3 - 4.2 06/05/2018 [facility] mIU/L 4:33 PM CDT [facility] Comment: Biotin has been identified by the sean hensley as a potential interfering substance. ??Higher concentr ations of biotin may be found in multivitamins, hair/nail supple ments, and workout supplements. ??If the result does not ma [facility] clinical observations, repeat testing after patient refrains fr om the use of supplements for at least 12 hours. Specimen Anatomical Collection Method Collection Time Receive d Time (Source) Location / / Volume Laterality Blood (Blood, 06/05/2018 2:31 PM 06/05/20 18 2:36 Venous) CDT PM CDT Darnell Benson M.D. LAB BLOOD ADD-ON Performing Organization Address City/State/ZIP Code Phon e Number [facility] [address] [place] [address] LAB CK (Creatine Kinase) (06/05/2018 2:31 PM CDT) P athologist Signature Creatine Kinase 41 26 - 192 06/05/2018 [facility] (CK), S U/L 9:28 PM CDT [facility] Specimen Anatomical Collection Method Collection Time Receive d Time (Source) Location / / Volume Laterality Blood (Blood, 06/05/2018 2:31 PM 06/05/20 18 9:13 Venous) CDT PM CDT Darnell Benson M.D. LAB BLOOD ADD-ON Performing Organization Address City/State/ZIP Code Phon e Number [facility]- [address] [place] [address] [facility] documented in this encounter Visit Diagnoses Diagnosis Pain Low Back Chronic Myalgia Pain Musculoskeletal Widespread Chronic documented in this encounter Additional Health Concerns Assessment Noted Time PHQ-9 Depression Total Score: 13 12/04/2017 10:[address] documented as of this encounter Care Teams Educational Director Relationship Specialty Start Date End Date Yarelis Reyes M.D. PCP - General 05/08/17 01/[address] [place] [address] documented as of this encounter
--- OUTSIDE RECORDS SUMMARY | 2022-08-16 21:31 | XMS_ITS | Encounter Summary ---
:1985 Author Organization [facility] Address [address] [place] [address] Care Team Providers Name Role Phone Yarelis Reyes M.D. Primary Care Provider [phone] Reason for Referral Outpatient (Routine) - Closed Specialty Diagnoses / Procedures Referred By Contact Refer red To Contact Obstetrics and Jhonny Enriquez M.D. [facility] Gynecology [address] [place] [address] Referral ID Status Reason Start Date Expiration Date Visits Requ ested Visits Authorized [id number] Closed 07/07/2018 07/07/2019 1 1 Encounter Details Date Type Department Care Team Description 07/07/2018 Clinical Communication Department of Internal [facility] in Jacqueline Padilla M.D. [address] [address] [phone] Social History Tobacco Use Types Packs/Day Years [...] do you attend jewish or Never 2021 yarsanism services? Do you belong to any clubs or No 01/25/2022 organizations such as jewish groups, unions, [employer] or athletic groups, or school groups? How [...] encounter Miscellaneous Notes Telephone Encounter - Lori Stauffer, RAmarisNAmaris - 07/07/2018 2:28 PM CDT Keily Ng is a 32 y.o. . Patient of Dr. Enriquez. Patient states took positive test and our congratulations were given- Yes Ask how feeling, symptoms, concerns etc.- Feels well at this time. LMP-06/09/18 Estimated date of delivery- 03/16/19 Vitamins- Yes, will start OTC What type of prior delivery- x 5 complications hx- She had GDM with her last , hx of PPROM at 36+1 weeks # Of prior miscarriages- SAB x 2, passed naturally Hx of chronic illnesses (HTN, diabetes, Thyroid)- PCOS, Fibromyalgia Current medications- Hx of Ativan, [place] and steroid injections in her shoulder. Last use was mid May. New obstetrical appointments made with Dr. Enriquez in 2 weeks. Patient will call clinic during business hours or present to ED if any bleeding or cramping before scheduled appt. - Notified 1. Have you or your partner traveled outside of [place] up to 6 months prior to this ? ZIKA- Yes 2. If so, where specifically have you or your partner traveled? Country, state? [place] 3. If you or your partner have traveled to [place] since May 08, 2016; where in [place] did you travel? Denies Telephone Encounter - Juanis Holloway - 07/07/2018 1:56 PM CDT Patient states she was supposed to come in at the beginning of July for an ultrasound to check on her ruptured ovarian cyst. She states she just found out today that she is . LMP - 06/09 She is wondering if she should still have the ultrasound. Please advise and call [phone] documented in this encounter Plan of Treatment Upcoming Encounters Date Type Specialty Care Team Description 08/30/2022 Clinical Communication Admitting/Central Scheduling 09/02/2022 Comprehensive Visit Endocrinology Ricardo Winkler APRN, C.N.P., D.N.P. [address] [place] [address] Scheduled Referrals Name Type Priority Associated Order Schedule Diagnoses Obstetrics and Outpatient Referral Routine Expect ed: Gynecology office 07/07/2018 visit (clinic) (Approximate) , Expires: 07/07/2021 documented as of this encounter Visit Diagnoses Not on filedocumented in this encounter Additional Health Concerns Assessment Noted Time PHQ-9 Depression Total Score: 13 12/04/2017 10:[address] documented as of this encounter Care Teams Senior Coldfusion Developer Relationship Specialty Start Date End Date Yarelis Reyes M.D. PCP - General 6/15/17 2/[address] [place] [address] documented as of this encounter
--- OUTSIDE RECORDS SUMMARY | 2022-08-16 21:31 | XMS_ITS | Encounter Summary ---
:1985 Author Organization [facility] Address [address] [place] [address] Care Team Providers Name Role Phone Yarelis Reyes M.D. Primary Care Provider [phone] Reason for Visit Reason Comments Follow-up ER visit [facility] Encounter Details Date Type Department Care Team Description 07/30/2018 Office Visit Department of Family Zuleima Sin usitis Acute (Primary Dx); Medicine, Yarelis Bravo, Cough Clinic, in [place] [address] [place] [id number] Social History Tobacco Use Types Packs/Day [...] do you attend temple or Never 2021 orthodox services? Do you belong to any clubs or No 01/25/2022 organizations such as temple groups, unions, fraternal or athletic groups, or [...] Sign Reading Time Taken Comments Blood Pressure 100/70 07/30/2018 8:22 AM CDT Pulse 72 07/30/2018 8:22 AM CDT Temperature 36.6 ??C (97.9 ??F) 07/30/2018 8:22 AM CDT Respiratory Rate - - Oxygen Saturation 99% 07/30/2018 8:22 AM CDT Inhaled Oxygen Concentration - - Weight 67 kg (147 lb 11.3 oz) 07/30/2018 8:22 AM CDT Height - - Body Mass Index 28.62 07/20/2018 2:28 PM CDT documented in this encounter Progress Notes Yarelis Reyes M.D. - 07/30/2018 8:30 AM CDT SUBJECTIVE CHIEF COMPLAINT / REASON FOR VISIT Keily Ng is a 32 y.o. female who presents for evaluation of Follow-up (ER visit [facility]). HISTORY OF PRESENT ILLNESS Keily was seen in the emergency department on 07/27 with productive cough, facial pain and pressure. She was already on amoxicillin similar infection. She was diagnosed with sinusitis, bronchitis, pneumonitis. She was advised to continue albuterol nebs the new prescription was given. Comes in today to follow-up. She is better. Facial pain and pressure has improved. Continues to cough but less so. She is , in the 1st trimester. OBJECTIVE BP 100/70 (BP Location: Left arm, Patient Position: Sitting, Cuff Size: Regular) Pulse 72 Temp 36.6 ??C Wt 67 kg LMP 06/09/2018 SpO2 99% BMI 28.62 kg/m?? PHYSICAL EXAM GENERAL: Patient is alert and oriented, well groomed and appropriately dressed. HEENT: TMS are both normal. Nasal mucosa is normal without congestion or discharge. Oropharynx is without erythema or exudate. NECK: Without adenopathy. HEART: Regular rate and rhythm without murmur. LUNGS: Clear without wheeze crackle or rhonchus. EXTREMITIES: Normal without edema. SKIN: No rashes or unusual lesions on exposed skin. ASSESSMENT / PLAN #1 Sinusitis Acute This is improving on her current medications. #2 Cough This too is improving. She will continue albuterol nebs on a as needed basis. #3 Plans to schedule visit with Dr. Enriquez. Yarelis Reyes M.D. documented in this encounter Plan of Treatment Upcoming Encounters Date Type Specialty Care Team Description 08/30/2022 Clinical Communication Admitting/Central Scheduling 09/02/2022 Comprehensive Visit Endocrinology Ricardo Winkler APRN, C.N.P., D.N.P. [address] [place] [address] documented as of this encounter Visit Diagnoses Diagnosis Sinusitis Acute - Primary Cough Unspecified Type documented in this encounter Additional Health Concerns Assessment Noted Time PHQ-9 Depression Total Score: 13 12/04/2017 10:[address] documented as of this encounter Care Teams Plow Holder Relationship Specialty Start Date End Date Yarelis Reyes M.D. PCP - General 05/08/17 01/03/21 [address] [place] [address] documented as of this encounter
--- OUTSIDE RECORDS SUMMARY | 2022-08-16 21:31 | XMS_ITS | Encounter Summary ---
:1985 Author Organization [facility] Address [address] [place] [address] Care Team Providers Name Role Phone Yarelis Reyes M.D. Primary Care Provider Reason for Visit Reason Onset Date Comments doctor's order 05/12/2018 Encounter Details Date Type Department Care Team Description 05/12/2018 Clinical Communication Department of Family Delaney Rm doctor's order Medicine, Yarelis Jaimson, Clinic, in [place] [id number] [address] [place] [phone] Social History Tobacco Use Types Packs/Day Years [...] do you attend rastafari or Never 2021 restorationism services? Do you belong to any clubs [...] this encounter Miscellaneous Notes Telephone Encounter - Kiya Arias L.P.NAmaris - 05/12/2018 2:[address] Sams, Please see request. Thank you. Telephone Encounter - Maddie Minaya - 05/12/2018 1:52 PM CDT Serena from [facility] called. Keily was instructed to go to physical therapy. She is needing a doctor's order faxed to her at [phone] documented in this encounter Plan of Treatment Upcoming Encounters Date Type Specialty Care Team Description 08/30/2022 Clinical Communication Admitting/Central Scheduling 09/02/2022 Comprehensive Visit Endocrinology Ricardo Winkler, SILVIO, C.N.P., D.N.P. [address] [place] [address] documented as of this encounter Visit Diagnoses Not on filedocumented in this encounter Additional Health Concerns Assessment Noted Time PHQ-9 Depression Total Score: 13 12/04/2017 10:[address] documented as of this encounter Care Teams Fur Buyer Relationship Specialty Start Date End Date Yarelis Reyes M.D. PCP - General 05/08/17 01/03/21 [address] [place] [phone] documented as of this encounter
--- OUTSIDE RECORDS SUMMARY | 2022-08-16 21:31 | XMS_ITS | Encounter Summary ---
:1985 Author Organization [facility] Address [address] [place] [id number] Care Team Providers Name Role Phone Yarelis Reyes M.D. Primary Care Provider [phone] Encounter Details Date Type Department Care Team Description 06/05/2018 Ancillary Procedure Department of Physical Medicine and [...] do you attend mandaen or Never 2021 jainism services? Do you [...] Winkler, SILVIO, C.N.P., D.N.P. [address] [place] [address] documented as of this encounter Procedures Procedure Name Priority Date/Time Associated Diagnosis Comme nts PHYSICAL MEDICINE Routine 06/05/2018 3:45 PM Resu lts for this AND REHAB IMAGE CDT procedure ar e in EXAM the results section. documented in this encounter Results PHYSICAL MEDICINE AND REHAB IMAGE EXAM (06/05/2018 3:45 PM CDT) Specimen (Source) Anatomical Collection Method Collection Time Re ceived Time Location / / Volume Laterality 06/05/2018 3:41 PM CDT Narrative [facility] - 06/05/2018 4:58 PM CDT This order has been created and auto-finalized [...] as of this encounter Care Teams Supervisor Unloading Relationship Specialty Start Date End Date Yarelis Reyes M.D. PCP - General 05/08/17 01/03/[address] [place] [address] documented as of this encounter
--- OUTSIDE RECORDS SUMMARY | 2022-08-16 21:31 | XMS_ITS | Encounter Summary ---
:1985 Author Organization [facility] Address [address] [place] [address] Care Team Providers Name Role Phone Yarelis Reyes M.D. Primary Care Provider [phone] Reason for Referral Medication Prior Authorization (Routine) - Closed Specialty Diagnoses / Procedures Referred By Contact Refer red To Contact Diagnoses Other Ovarian Cyst Right Side Yves Sams M.D. [address] [place] [phone] Referral ID Status Reason Start Date Expiration Date Visits Requ ested Visits Authorized [id number] Closed Reason for Visit Reason Comments Other ER follow up ruptured cyst Encounter Details Date Type Department Care Team Description 05/29/2018 Office Visit Department of [facility] Yves Sams Other Ovarian Cyst MedicineSocorro M.D. Right Side (Primary Clinic, in [place], [address] [place] [address]) [place], [place] [address] [facility] [address] [place], [place] [phone] (Work) [phone] Social History Tobacco Use Types Packs/Day Years [...] do you attend cheondoism or Never 2021 lutheran services? Do you [...] Sign Reading Time Taken Comments Blood Pressure 90/68 05/29/2018 3:16 PM CDT Pulse 80 05/29/2018 3:16 PM CDT Temperature 36.4 ??C (97.5 ??F) 05/29/2018 3:16 PM CDT Respiratory Rate 16 05/29/2018 3:16 PM CDT Oxygen Saturation - - Inhaled Oxygen Concentration - - Weight 71.2 kg (156 lb 15.5 oz) 05/29/2018 3:16 PM CDT Height - - Body Mass Index 30.82 04/10/2018 11:21 AM CDT documented in this encounter Patient Instructions Patient InstructionsYves Sams M.D. - 05/29/2018 3:30 PM CDT 1. Other Ovarian Cyst Right Side -Schedule Naproxen 500 mg twice daily for 4 days. -Hollywood as needed for breakthrough pain. -Warm compress, heating pads or hot bath as needed to decrease inflammation. -Schedule an appointment with OBGYN if not improving. - HYDROcodone-acetaminophen (NORCO) 5-325 mg per tablet; Take 1 tablet by mouth every 8 (eight) hours as needed for moderate pain or score 4-6 of 10 for up to 4 days. Dispense: 15 tablet; Refill: 0 documented in this encounter Progress Notes Yves Sams M.D. - 05/29/2018 3:30 PM CDT DEPARTMENT OF FAMILY MEDICINE IN [place], [place] Chief Complaint Chief Complaint Patient presents with ??? Other ER follow up ruptured cyst [facility] ED Followup Facility: [facility] emergency department Date of visit: 05/29/2018 Reason for visit: Ruptured ovarian Concern: Description of the problem :Patient was seen at [facility] emergency department with pelvic pain and found to have hemorraghic right ovarian cyst. Patient states she continues to have worsening painand did not get any pain medication. Patient states she has significant pain with any movement and cannot do anything due to pain. She cannot tolerated the pain. She was given Toradol in the ED withoutany improvement. Patient reports she has similar in 2013 and she was pain-medication &steroid which helped with pain. She is very tearful and frustrated with the pain. The following portions of the patient's history were reviewed and updated as appropriate in the EMR:allergies, current medications and problem list on 05/29/18 REVIEW OF SYSTEMS Negative review of major organ systems apart from that noted in the HPI PHSYCIAL EXAM Temperature: 36.4 ??C Resp Rate: 16 Blood Pressure: 90/68 Weight: 71.2 kg Constitutional: She is oriented to person, place, and time. She appears well- developed and well-nourished. She appears distressed (moderately ). HENT: Head: Normocephalic and atraumatic. Cardiovascular: Normal rate, regular rhythm and normal heart sounds. No murmur heard. Pulmonary/Chest: Effort normal and breath sounds normal. No respiratory distress. She has no wheezes. She has no rales. Abdominal: Soft. Bowel sounds are normal. There is tenderness in the suprapubic area. Neurological: She is alert and oriented to person, place, and time. LABS/IMAGING Pelvic ultrasound at [facility] INDICATION: Pelvic pain TECHNIQUE: Ultrasound pelvis transabdominal and transvaginal. Endovaginal imaging was performed to better visualize the endometrium and ovaries. Real-time hernandez scale sonographic images with spectral and color Doppler imaging of the ovaries were obtained. COMPARISON: None FINDINGS: Uterus: 8.4 x 5.4 x 5.4 cm. Normal echotexture of the myometrium noted with no masses are seen. Endometrium: 10 mm. No sign of endometrial mass or fluid present. Right ovary: 4.6 x 4.2 x 3.2 cm. In the right ovary, there is a heterogeneous lesion measuring 3.3 cm with internal septations and low-level echoes. Arterial blood flow seen within the right ovary. Left ovary: 2.5 x 2 x 1.7 cm. Arterial blood flow seen within the left ovary. Cul-de-sac: Trace fluid is present within the cul-de-sac and surrounding the right adnexa. IMPRESSION: 1. In the right ovary, there is a heterogeneous lesion measuring 3.3 cm with internal septations andlow-level echoes. This is likely due to a hemorrhagic cyst. ASSESSMENT AND PLAN Patient Instructions 1. Other Ovarian Cyst Right Side: She was found to have 3.3 cm of right hemorrhagic ovarian cyst andshe is in moderately distress due to pain. -Schedule Naproxen 500 mg twice daily for 4 days. -Hollywood 5 mg every 8 hours as needed for breakthrough pain for 4 days. -Warm compress, heating pads or hot bath as needed to decrease inflammation. -Schedule an appointment with OBGYN if not improving or worsening of symptoms. - HYDROcodone-acetaminophen (NORCO) 5-325 mg per tablet; Take 1 tablet by mouth every 8 (eight) hours as needed for moderate pain or score 4-6 of 10 for up to 4 days. Dispense: 15 tablet; Refill: 0 Options for treatment and follow-up [...] Winkler, SILVIO, C.N.P., D.N.P. [address] [place] [address] documented as of this encounter Visit Diagnoses Diagnosis Other Ovarian Cyst Right Side - Primary documented in this encounter Additional Health Concerns Assessment Noted Time PHQ-9 Depression Total Score: 13 12/04/2017 10:23 AM C documented as of this encounter Care Teams Forestry Aide Relationship Specialty Start Date End Date Yarelis Reyes M.D. PCP - General 05/08/17 01/03/21 [address] [place] [address] documented as of this encounter
--- OUTSIDE RECORDS SUMMARY | 2022-08-16 21:31 | XMS_ITS | Encounter Summary ---
:1985 Author Organization [facility] Address [address] [place] [address] Care Team Providers Name Role Phone Karen Reyes M.D. Primary Care Provider Reason for Referral Physical Therapy (Routine) - Closed Specialty Diagnoses / Procedures Referred By Contact Refer red To Contact Physical Therapy Diagnoses Pain Back [facility] [place] [facility] [address] [place] [phone] [place] [phone] Phone: [phone] Fax: Referral ID Status Reason Start Date Expiration Visits Visits Date Requested Authorized [id number] Closed Patient 04/02/2018 09/29/2018 1 1 Preference Encounter Details Date Type Department Care Team Description 04/02/2018 Clinical Communication Department of [facility] [place] Chano Mcpherson [facility], in [place], [address] [place], [place] [address] [address] [place], [place] [phone] (Work) [phone] Social History Tobacco Use Types Packs/Day Years [...] do you attend shinto or Never 2021 taoist services? Do you belong to any clubs [...] this encounter Miscellaneous Notes Telephone Encounter - Heidy Patterson, L.P.N. - 04/03/2018 8:48 AM CDT referal faxed to [facility] Addendum Note - Karen Reyes M.D. - 04/02/2018 11:30 PM CDT Addended by: KAREN FUENTES on: 04/02/2018 11:30 PM Modules accepted: Orders Telephone Encounter - Lila Shaver L.PCarrington. - 04/02/2018 2:51 PM CDT Notified Keily of results sent out in letters and she would like to go to [facility] PT please and would appreciate flexeril script for neck and shoulder please... documented in this encounter Plan of Treatment Upcoming Encounters Date Type Specialty Care Team Description 08/30/2022 Clinical Communication Admitting/Central Scheduling 09/02/2022 Comprehensive Visit Endocrinology Ricardo Winkler APRN, C.N.P., D.N.P. [address] [place] [address] documented as of this encounter Visit Diagnoses Diagnosis Pain Back - Primary documented in this encounter Additional Health Concerns Assessment Noted Time PHQ-9 Depression Total Score: 13 12/04/2017 10:[address] documented as of this encounter Care Teams Glassware Verifier Relationship Specialty Start Date End Date Karen Reyes M.D. PCP - General 05/08/17 01/03/21 [address] [place] [address] documented as of this encounter
--- OUTSIDE RECORDS SUMMARY | 2022-08-16 21:32 | XMS_ITS | Encounter Summary ---
:1985 Author Organization [facility] Address [address] [place] [address] Care Team Providers Name Role Phone Yarelis Reyes M.D. Primary Care Provider Reason for Visit Reason Comments Communication Encounter Details Date Type Department Care Team Description 12/23/2017 Clinical Communication Department of Internal Demario Villalobos Communication Medicine in [place], [place] M.D. [address] [place] [phone] Social History Tobacco Use Types Packs/Day Years [...] do you attend adventism or Never 2021 advent services? Do you [...] Telephone Encounter - Monica Guthrie R.N. - 01/05/2018 9:43 AM STONE TRIMMER Spoke with Keily. She states she is currently being seen downstairs in family practice for this issue. She states she doesn't feel like the appointment she is at will help her reach a diagnosis. She is still wanting to see Dr. Enriquez later this week for a more thorough evaluation. She is planning to schedule an appointment with Dr. Enriquez later this week. E TRIMMER Telephone Encounter - Heidy Patterson L.P.NAmaris - 12/23/2017 2:59 PM STONE TRIMMER Patient offered and accepted appointment on 12/24/2017 at 2pm with a 1;45 pm check in to be evaluated E TRIMMER Telephone Encounter - Juanis Holloway - 12/23/2017 8:06 AM CST Patient states she still has a swollen gland and was advised to call if this happened. Please adviseand call [phone] E TRIMMER documented in this encounter Plan of Treatment Upcoming Encounters Date Type Specialty Care Team Description 08/30/2022 Clinical Communication Admitting/Central Scheduling 09/02/2022 Comprehensive Visit Endocrinology Ricardo Winkler, SILVIO, C.N.P., D.N.P. [address] [place] [address] documented as of this encounter Visit Diagnoses Not on filedocumented in this encounter Additional Health Concerns Assessment Noted Time PHQ-9 Depression Total Score: 13 12/04/2017 10:[address] documented as of this encounter Care Teams Stem Lead Former Relationship Specialty Start Date End Date Yarelis Reyes M.D. PCP - General 05/08/17 01/03/21 [address] [place] [phone] documented as of this encounter
--- OUTSIDE RECORDS SUMMARY | 2022-08-16 21:32 | XMS_ITS | Encounter Summary ---
:1985 Author Organization [facility] Address [address] [place] [address] Care Team Providers Name Role Phone Yarelis Reyes M.D. Primary Care Provider [phone] Reason for Visit Reason Comments Vaginal Discharge pink discharge for past 5 da ys Appointment Request (Routine) - Closed Specialty Diagnoses / Procedures Referred By Contact Refer red To Contact Family Medicine Referral ID Status Reason Start Date Expiration Date Visits Requ ested Visits Authorized [id number] Closed 01/05/2018 07/04/2018 1 1 Encounter Details Date Type Department Care Team Description 01/05/2018 Office Visit Department of Family Yves Sams, Vagino sis Bacterial (Primary Dx); MedicineSocorro M.D. [facility], in [address] [facility] [address] [place], [place] [phone] [address] (Work) [phone] Social History Tobacco Use Types Packs/Day Years [...] do you attend sabianism or Never 2021 taoism services? Do you [...] Sign Reading Time Taken Comments Blood Pressure 102/64 01/05/2018 9:05 AM DATA COLLECTION SPECIALIST Pulse 68 01/05/2018 9:05 AM DATA COLLECTION SPECIALIST Temperature 36.7 ??C (98.1 ??F) 01/05/2018 9:05 AM DATA COLLECTION SPECIALIST Respiratory Rate 16 01/05/2018 9:05 AM DATA COLLECTION SPECIALIST Oxygen Saturation - - Inhaled Oxygen Concentration - - Weight 70.5 kg (155 lb 8.6 oz) 01/05/2018 9:05 AM DATA COLLECTION SPECIALIST Height - - Body Mass Index 30.54 10/17/2017 2:33 PM DATA COLLECTION SPECIALIST documented in this encounter Patient Instructions Patient InstructionsYves Sams M.D. - 01/05/2018 9:00 AM CST 1. Discharge Vaginal - Vaginitis Panel Vagina 2. Menstrual Irregularity - hCG (Human Chorionic Gonadotropin), Quantitative, - Test, POCT, Urine (lab) COLLECTION SPECIALIST documented in this encounter Progress Notes Yves Sams M.D. - 01/05/2018 9:00 AM CST DEPARTMENT OF FAMILY MEDICINE [place] Chief Complaint Chief Complaint Patient presents with ??? Vaginal Discharge pink discharge for past 5 days HPI HPI Vaginal discharge: Patient states she has been having pink discharge for the past 5 days. Patient reports she only notices when she wipes herself. She denies vaginal spotting on the underwear. Patient has history of PCOS and her menstrual cycles are irregular. She is not sure if this ude implantation.Her last menstrual was on November 242017. She has cramping pain, but it has been chronic. Deniesany dysuria, urinary frequency or urgency. No odor smells. She had two partners in the past ten years. Her family has a history of cervical cancer and she had abnormal cells in the past so she is worried about something bad. The following portions of the patient's history were reviewed and updated as appropriate in the EMR:allergies, current medications and problem list on 01/05/18 REVIEW OF SYSTEMS Negative review of major organ systems apart from that noted in the HPI PHSYCIAL EXAM Temperature: 36.7 ??C Resp Rate: 16 Blood Pressure: 102/64 Weight: 70.5 kg Constitutional: She appears well-developed and well-nourished. Genitourinary: There is no rash or tenderness on the right labia. There is no rash or tenderness on the left labia. Cervix exhibits discharge. There is bleeding in the vagina. Psychiatric: Her mood appears anxious. LABS/IMAGING Recent Results (from the past 24 hour(s)) Vaginitis Panel Vagina Collection Time: 01/05/18 9:22 AM Result Value Francia species, DNA Negative Gardnerella vaginalis, DNA Positive (A) Trichomonas vaginalis, DNA Negative Test, POCT, Urine (lab) Collection Time: 01/05/18 9:50 AM Result Value Test, POCT, U Negative ASSESSMENT AND PLAN Patient Instructions 1. Vaginosis Bacterial: Wet prep positive for bacterial vaginosis. I called the patient and left chio voicemail regarding her lab results. I have sent a prescription of metronidazole 500 mg twice daily for 7 days. Avoid alcohol while taking metronidazole. - Vaginitis Panel Vagina - metroNIDAZOLE (for_FLAGYL) 500 mg tablet; Take 1 tablet (500 mg total) by mouth 2 (two) times a day for 7 days. Dispense: 14 tablet; Refill: 0 2. Menstrual Irregularity: UPT negative. Serum HCG level is still pending. Encouraged patient to either start OCPs or metformin to help regulate her menstrual cycle. Patient does not have insurance andcannot afford to get OCP. - hCG (Human Chorionic Gonadotropin), Quantitative, - Test, POCT, Urine (lab) Options for treatment and follow-up care were reviewed with the patient . Keily Ng and/or guardian engaged in the decision making process and verbalized understanding of the options discussedand agreed with the final plan. Yves Sams M.D. COLLECTION SPECIALIST documented in this encounter Plan of Treatment Upcoming Encounters Date Type Specialty Care Team Description 08/30/2022 Clinical Communication Admitting/Central Scheduling 09/02/2022 Comprehensive Visit Endocrinology Ricardo Winkler APRN, C.N.P., D.N.P. [address] [place] [phone] documented as of this encounter Procedures Procedure Name Priority Date/Time Associated Diagnosis Comme nts TEST, POCT, Routine 01/05/2018 9:50 AM Menstrual Results for this U (LAB) DATA COLLECTION SPECIALIST Irregularity procedure are i n the results section. HUMAN CHORIONIC Routine 01/05/2018 9:46 AM Menstrual Result s for this GONADOTROPIN (HCG), DATA COLLECTION SPECIALIST Irregularity procedur e are in YOAN, the results section. VAGINITIS PANEL Routine 01/05/2018 9:22 AM Vaginosis Bacterial Results for this DATA COLLECTION SPECIALIST procedure are i n the results section. documented in this encounter Results Test, POCT, Urine (lab) (01/05/2018 9:50 AM DATA COLLECTION SPECIALIST) P athologist Signature Negative 01/05/2018 [facility] Test, POCT, U 9:57 AM DATA COLLECTION SPECIALIST [facility] Specimen Anatomical Collection Method Collection Time Receive d Time (Source) Location / / Volume Laterality Urine (Urine, 01/05/2018 9:50 AM 01/05/20 9:50 Clean Catch) DATA COLLECTION SPECIALIST AM DATA COLLECTION SPECIALIST Yves Sams M.D. LAB POCT ORDERABLES - DEVICE Performing Organization Address City/[facility]/ZIP Code Phon e Number [facility] [address] [place] [address] [facility] [address] [facility] [place], [place] [address], [facility] [facility] hCG (Human Chorionic Gonadotropin), Quantitative, (01/05/2018 9:46 AM DATA COLLECTION SPECIALIST) P athologist Signature HCG, <0.5 IU/L 01/05/2018 [facility] Quantitative, 5:36 PM [facility] Comment: Biotin has been identified by the sean hensley as a potential interfering substance. ??Higher concentr ations of biotin may be found in multivitamins, hair/nail supple ments, and workout supplements. ??If the result does not [facility] clinical observations, repeat testing after patient refrains fr om the use of supplements for at least 12 hours. ----REFERENCE VALUE---- <5.0 Negative 5.0-25.0 Indeterminate >25.0 Positive Specimen Anatomical Collection Method Collection Time Receive d Time (Source) Location / / Volume Laterality Blood (Blood, 01/05/2018 9:46 AM 01/05/20 18 1:01 Venous) DATA COLLECTION SPECIALIST PM DATA COLLECTION SPECIALIST Yves Sams M.D. LAB BLOOD ADD-ON Performing Organization Address City/State/ZIP Code Phon e Number [facility] [place] [address] [place] [id number] LAB (ABNORMAL) Vaginitis Panel Vagina (01/05/2018 9:22 AM DATA COLLECTION SPECIALIST) Patholo gist Method Time Signature Francia Negative Negative 01/05/2018 [facility] species, DNA 10:33 AM [facility] [place] [facility] Gardnerella Positive (A) Negative 01/05/2018 [facility] vaginalis, DNA 10:33 AM [facility] Trichomonas Negative Negative 01/05/2018 [facility] vaginalis, DNA 10:33 AM [facility] Specimen Anatomical Collection Method Collection Time Receive d Time (Source) Location / / Volume Laterality Swab (Vagina) 01/05/2018 9:22 AM 01/05/20 18 9:41 DATA COLLECTION SPECIALIST AM DATA COLLECTION SPECIALIST Yves Sams M.D. LAB MICROBIOLOGY - GENERAL O LEIGHERABLES Performing Organization Address City/State/ZIP Code Phon e Number [facility]- [address] [place] [address] [facility] [address] [facility] ROVERTO Quintanilla [address], [facility] documented in this encounter Visit Diagnoses Diagnosis Vaginosis Bacterial - Primary Menstrual Irregularity documented in this encounter Additional Health Concerns Assessment Noted Time PHQ-9 Depression Total Score: 13 12/04/2017 10:[address] documented as of this encounter Care Teams Computer Systems Technician Relationship Specialty Start Date End Date Yarelis Reyes M.D. PCP - General 05/08/17 01/03/21 [address] [place] [address] documented as of this encounter
--- OUTSIDE RECORDS SUMMARY | 2022-08-16 21:32 | XMS_ITS | Encounter Summary ---
:1985 Author Organization [facility] Address [address] [place] [address] Care Team Providers Name Role Phone Yarelis Reyes M.D. Primary Care Provider [phone] Reason for Visit Reason Comments Med Refill Encounter Details Date Type Department Care Team Description 11/14/2017 Refill Department of Obstetrics and Enriquez, Jhonny Dockery M.D. Med Refill Gynecology in [place], [place] [address] [place], [place] [phone] Social History Tobacco Use Types Packs/Day [...] or relatives? How often do you attend orthodoxy or Never 2021 denominational services? Do you belong to any clubs or No 01/25/2022 organizations such as orthodoxy groups, unions, fraternal or athletic groups, or [...] Telephone Encounter - Monica Guthrie R.N. - 11/14/2017 4:27 PM DAY CARE AIDE Patient notified CARE AIDE Telephone Encounter - Jhonny Enriquez M.D. - 11/14/2017 4:09 PM CST Diflucan Rx sent to [facility]. Please inform patient CARE AIDE Telephone Encounter - Monica Guthrie R.N. - 11/14/2017 3:09 PM DAY CARE AIDE See below CARE AIDE Telephone Encounter - Tia Jane - 11/14/2017 1:19 PM CST Nurse review: Unable to propose medication; Not on med list Prescribing Provider: Jhonny Enriquez Name of medication: Fluconazole Tabs Strength: 150mg Frequency: Take one tablet by mouth once for one dose; repeat in 3 days if symptoms persist Quantity: 2 Refills: Last Refill: 10-17-2017 Pharmacy: [facility] CARE AIDE documented in this encounter Plan of Treatment Upcoming Encounters Date Type Specialty Care Team Description 08/30/2022 Clinical Communication Admitting/Central Scheduling 09/02/2022 Comprehensive Visit Endocrinology Ricardo Winkler APRN, C.N.P., D.N.P. [address] [place] [address] documented as of this encounter Visit Diagnoses Not on filedocumented in this encounter Additional Health Concerns Assessment Noted Time PHQ-9 Depression Total Score: 17 08/02/2015 8:53 AM CD T documented as of this encounter Care Teams Lock Corner Machine Operator Relationship Specialty Start Date End Date Yarelis Reyes M.D. PCP - General 05/08/17 01/03/21 [address] [address] documented as of this encounter
--- OUTSIDE RECORDS SUMMARY | 2022-08-16 21:32 | XMS_ITS | Encounter Summary ---
:1985 Author Organization [facility] Address [address] [place] [address] Care Team Providers Name Role Phone Yarelis Reyes M.D. Primary Care Provider Reason for Visit Reason Comments Med Refill Encounter Details Date Type Department Care Team Description 01/23/2018 Refill Department of Family Medicine, Andrés Barragan Refill [facility], in Yarelis Schroeder M.D. [place] [address] [place] [address] [place] [address] [phone] Social History Tobacco Use Types Packs/Day Years [...] do you attend moravian or Never 2021 yarsanism services? Do you [...] Winkler, SILVIO, C.N.P., D.N.P. [address] [place] [address] documented as of this encounter Visit Diagnoses Not on filedocumented in this encounter Additional Health Concerns Assessment Noted Time PHQ-9 Depression Total Score: 13 12/04/2017 10:23 AM C documented as of this encounter Care Teams Post Splitter Relationship Specialty Start Date End Date Yarelis Reyes M.D. PCP - General 05/08/17 01/03/21 [address] [place] [address] documented as of this encounter
--- OUTSIDE RECORDS SUMMARY | 2022-08-16 21:32 | XMS_ITS | Encounter Summary ---
:1985 Author Organization [facility] Address [address] [place] [address] Care Team Providers Name Role Phone Yarelis Reyes M.D. Primary Care Provider [phone] Reason for Visit Reason Onset Date Comments Med Refill 10/06/2017 Encounter Details Date Type Department Care Team Description 10/06/2017 Refill Department of Family Medicine, [place] Med Refill [facility], in Yarelis Quintanilla M.D. [place] [phone] [address] [place] [address] [facility] [place] [address] [phone] Social History Tobacco Use Types Packs/Day Years Used Date Smoking Tobacco: Former Alcohol Habits Answer Date Recorded How often [...] do you attend advent or Never 2021 synagogue services? Do you [...] Ricardo Winkler, SILVIO, C.N.P., D.N.P. [address] [place] [address] documented as of this encounter Visit Diagnoses Not on filedocumented in this encounter Additional Health Concerns Assessment Noted Time PHQ-9 Depression Total Score: 17 08/02/2015 8:53 AM CD T documented as of this encounter Care Teams Driver Service Technician Relationship Specialty Start Date End Date Yarelis Reyes M.D. PCP - General 05/08/17 01/03/21 [address] [place] [address] documented as of this encounter
--- OUTSIDE RECORDS SUMMARY | 2022-08-16 21:32 | XMS_ITS | Encounter Summary ---
:1985 Author Organization [facility] Address [address] [place] [address] Care Team Providers Name Role Phone Yarelis Reyes M.D. Primary Care Provider [phone] Encounter Details Date Type Department Care Team Description 09/23/2017 Orders Only Department of Jhonny Enriquez, Renee Ex amination Obstetrics and Efren Diabetes Maeve itus Gynecology in [place], [place] [address] [place] [address] Social History Tobacco Use Types Packs/Day [...] do you attend jainism or Never 2021 sikh services? Do you [...] Ricardo Winkler, SILVIO, C.N.P., D.N.P. [address] [place] [address] documented as of this encounter Visit Diagnoses Diagnosis Screening Examination Diabetes Mellitus documented in this encounter Additional Health Concerns Assessment Noted Time PHQ-9 Depression Total Score: 17 08/02/2015 8:53 AM CD T documented as of this encounter Care Teams Furnace Charging Machine Operator Relationship Specialty Start Date End Date Yarelis Reyes M.D. PCP - General 05/08/17 01/03/21 [address] [address] documented as of this encounter
--- OUTSIDE RECORDS SUMMARY | 2022-08-16 21:32 | XMS_ITS | Encounter Summary ---
:1985 Author Organization [facility] Address [address] [place] [address] Care Team Providers Name Role Phone Yarelis Reyes M.D. Primary Care Provider [phone] Reason for Visit Reason Comments Pain In Limb chronic pain in hips and low er back x 2 1/2 months and shoulders and neck x 3 days getting worse. patient requesting x rays of hips up to neck Appointment Request (Routine) - Closed Specialty Diagnoses / Procedures Referred By Contact Refer red To Contact Family Medicine Diagnoses par review [facility] Region Procedures FAM EST LONG Referral ID Status Reason Start Date Expiration Date Visits Requ ested Visits Authorized [id number] Closed 03/26/2018 09/22/2018 1 1 Encounter Details Date Type Department Care Team Description 03/27/2018 Office Visit Department of Family Zuleima naik Low Back (Primary Dx); Medicine, Yarelis Bravo, Abnormal Laboratory Results; Clinic, in [place] [place] [address] [place] [address] [place]RO[place] [phone] [phone] Social History Tobacco Use Types Packs/Day Years [...] do you attend shinto or Never 2021 confucianism services? Do you [...] Sign Reading Time Taken Comments Blood Pressure 98/60 03/27/2018 2:05 PM CDT Pulse 56 03/27/2018 2:05 PM CDT Temperature 36.3 ??C (97.3 ??F) 03/27/2018 2:05 PM CDT Respiratory Rate 16 03/27/2018 2:05 PM CDT Oxygen Saturation - - Inhaled Oxygen Concentration - - Weight 70.9 kg (156 lb 4.9 oz) 03/27/2018 2:05 PM CDT Height 152 cm (4' 11.84) 03/27/2018 2:05 PM CDT Body Mass Index 30.69 03/27/2018 2:05 PM CDT documented in this encounter Progress Notes Yarelis Reyes M.D. - 03/27/2018 2:00 PM CDT CHIEF COMPLAINT/ REASON FOR VISIT Neck and back pain. HISTORY OF PRESENT ILLNESS Keily Ng is a 32 y.o. female who presents to the clinic today for neck and back pain. She is having trouble with back pain and when she was last seen on 03/[address] Darnell Benson, PM&R specialist in [place]. Keily's neck and left shoulder are particularly bothersome. She is finding it difficult to move her head while driving and can't lift her son. Her hips have hurt for months. She states that she has had problems with her left shoulder for years and does not recall any previous injury to her shoulder. When she was younger she was in gymnastics. Keily started goingto a local chiropractor, Dr. Martinez about a month ago. After her last visit with Dr. Martinez she started to have more pain and has not been back. She has been addressing her pain with hot baths and limited use of Aleve. When she was seen on 03/19 she was having difficulty with vaginitis and we checked for Chlamydia and gonorrhea; the results came back indeterminate and this needs to be checked again. The patient denies any additional questions or concerns at this time. SYSTEMS REVIEW Please see HPI for pertinent positives, otherwise rest of ROS negative. MEDICATIONS Current Outpatient Prescriptions Medication Sig Dispense Refill ??? busPIRone (for_BUSPAR) 10 mg tablet Take 1 tablet by mouth 2 (two) times a day. ??? clindamycin (CLEOCIN) 2 % vaginal cream Insert 1 applicator into the vagina at bedtime for 7 days. (Patient not taking: Reported on 03/27/2018 ) 40 g 0 ??? fluconazole (DIFLUCAN) 150 mg tablet TAKE 1 TABLET BY MOUTH FOR 1 DOSE 0 ??? ibuprofen (for_ADVIL,MOTRIN) 200 mg tablet Take 800 mg by mouth daily. ??? LORazepam (for_ATIVAN) 0.5 mg tablet Take 0.5 mg by mouth 3 (three) times a day as needed for anxiety. ??? metroNIDAZOLE (FLAGYL) 500 mg tablet TAKE ONE TABLET BY MOUTH TWICE A DAY FOR 7 DAYS 0 No current facility-administered medications for this visit. ALLERGIES Allergies Allergen Reactions ??? Bupropion Hcl Anxiety flush, anger PAST MEDICAL / SURGICAL HISTORY Past Medical History: Diagnosis Date ??? Abnormal Pap Smear Personal History ??? Bipolar I Depressed (HCC) 10/22/2011 ??? Cervical Dysplasia Personal History 04/02/2010 ??? Headache Tension Chronic 09/05/2014 ??? Pain Musculoskeletal NOS 11/18/2014 ??? Personal History Of Gestational Diabetes ??? Polycystic Ovary Syndrome 04/02/2010 ??? Smoking Tobacco Use Personal History Past Surgical History: Procedure Laterality Date ??? LAPAROSCOPIC APPENDECTOMY N/A 12/25/2012 ??? LEEP PROCEDURE - LOOP ELECTRO EXCISION PROCEDURE N/A 2006 PREVENTIVE SERVICES Social History Substance Use Topics ??? Smoking status: Former Smoker Types: Cigarettes Quit date: 2013 ??? Smokeless tobacco: Never Used ??? Alcohol use Yes VITAL SIGNS Vitals: 03/27/18 1405 BP: 98/60 Pulse: (!) 56 Temp: 36.3 ??C Resp: 16 Height: 152 cm Weight: 70.9 kg TempSrc: Temporal Body mass index is 30.69 kg/m??. PHYSICAL EXAMINATION General: Patient is alert and oriented times three, in no acute distress, good hygiene and is dressed appropriately. Genitalia: External genitalia without lesions. Cervix is normal in appearance; samples taken for chlamydia/gonorrhea screening. DIAGNOSTICS LABORATORY: Chlamydia/gonorrhea screening results: pending. RADIOLOGY: Lumbar spine x-ray findings per Dr. Nomi Vogel: 5 lumbar type vertebral bodies. Mild mid lumbar curve convex left. Chest otherwise negative for acute findings. Cervical spine x-ray findings per Dr. Nomi Vogel: Reversal of the central cervical lordosis which may be due to patient positioning and/or muscular spasm. No appreciable acute osseous injury of thecervical spine. If pain persists consider follow-up imaging. Impression: No acute findings. Thoracic spine x-ray findings per Dr. Nomi Vogel: Mild/moderate mid thoracic curve convex right.Small amount degenerative disc space disease mid, lower thoracic/upper lumbar spine. Impression: No acute findings. ASSESSMENT / PLAN #1 Chronic muscle pain suspect fibromyalgia X-rays were obtained as above, patient will be notified of the results. Will start Cymbalta 30 mg daily. Consider referral to physical therapy. #2 Abnormal lab results Chlamydia/gonorrhea were rechecked today with results pending. Follow up The patient will contact the clinic with any new or worsening symptoms. This document serves as a record of services personally performed by Yarelis Baltazar MD. It was created on their behalf by Viky Man, a trained medical reception specialist. The creation of this record is based on the scribe's personal observations and the provider's statements to them. This document has been matilda cked and approved by the attending provider. Yarelis Reyes M.D. - 03/27/2018 2:00 PM CDT Can you please let our infectious disease department know that these are negative. Lila Shaver L.P.N. - 03/27/2018 2:00 PM CDT FYI documented in this encounter Plan of Treatment Upcoming Encounters Date Type Specialty Care Team Description 08/30/2022 Clinical Communication Admitting/Central Scheduling 09/02/2022 Comprehensive Visit Endocrinology Ricardo Winkler APRN, C.N.P., D.N.P. [address] [place] [phone] documented as of this encounter Procedures Procedure Name Priority Date/Time Associated Diagnosis Comme nts CHLAMYDIA/GONORRHOE Routine 03/27/2018 3:18 PM Abnormal Labora tory Results for this AE AMPLIFIED RNA CDT Results procedure a re in the results section. documented in this encounter Results DX Thoracic Spine 2 Views (03/27/2018 3:44 PM CDT) Anatomical Region Laterality Modality Thoracic Spine, Musculoskeletal RST LOS N/A Computed Radiography Specimen (Source) Anatomical Collection Method Collection Time Re ceived Time Location / / Volume Laterality 03/27/2018 4:01 PM CDT Impressions 03/27/2018 4:02 PM CDT IMPRESSION: No acute findings. Narrative 03/27/2018 4:02 PM CDT EXAM: DX THORACIC SPINE 2 VIEWS COMPARISON: None FINDINGS: Mild/moderate mid thoracic cur ve convex right. Small amount degenerative disc space dis ease mid, lower thoracic/upper lumbar spine. Procedure Note Nomi Vogel M.D. - 03/27/2018Forma tting of this note might be different from the original. EXAM: DX THORACIC SPINE 2 VIEWS COMPARISON: None FINDINGS: Mild/moderate mid thoracic cur ve convex right. Small amount degenerative disc space dis ease mid, lower thoracic/upper lumbar spine. IMPRESSION: No acute findings. Yarelis Reyes M.D. [facility] DIAGNOSTIC IMAGING PROCEDURES DX Cervical Spine 2-3 Views (03/27/2018 3:44 PM CDT) Anatomical Region Laterality Modality Cervical Spine, Musculoskeletal RST LOS N/A Computed Radiography Specimen (Source) Anatomical Collection Method Collection Time Re ceived Time Location / / Volume Laterality 03/27/2018 3:58 PM CDT Impressions 03/27/2018 3:58 PM CDT IMPRESSION: No acute findings. Narrative 03/27/2018 3:58 PM CDT EXAM: DX CERVICAL SPINE 2-3 VIEWS COMPARISON: None FINDINGS: Reversal of the central cervic al lordosis which may be due to patient positioning and/or muscular spasm. No ap preciable acute osseous injury of the cervical spine. If pain persists consider follow-up imag ing. Procedure Note Nomi Vogel M.D. - 03/27/2018Forma tting of this note might be different from the original. EXAM: DX CERVICAL SPINE 2-3 VIEWS COMPARISON: None FINDINGS: Reversal of the central cervic al lordosis which may be due to patient positioning and/or muscular spasm. No ap preciable acute osseous injury of the cervical spine. If pain persists consider follow-up imag ing. IMPRESSION: No acute findings. Yarelis Reyes M.D. [facility] DIAGNOSTIC IMAGING PROCEDURES DX Lumbar Spine 2-3 Views (03/27/2018 3:42 PM CDT) Anatomical Region Laterality Modality Lumbar Spine, Musculoskeletal RST LOS N/A Co mputed Radiography Specimen (Source) Anatomical Collection Method Collection Time Re ceived Time Location / / Volume Laterality 03/27/2018 4:01 PM CDT Impressions 03/27/2018 4:01 PM CDT IMPRESSION: No acute findings. Narrative 03/27/2018 4:01 PM CDT EXAM: DX LUMBAR SPINE 2-3 VIEWS COMPARISON: None FINDINGS: 5 lumbar type vertebral bodies . Mild mid lumbar curve convex left. Chest otherwise negative for acute findi ngs. Procedure Note Nomi Vogel M.D. - 03/27/2018Forma tting of this note might be different from the original. EXAM: DX LUMBAR SPINE 2-3 VIEWS COMPARISON: None FINDINGS: 5 lumbar type vertebral bodies . Mild mid lumbar curve convex left. Chest otherwise negative for acute findi ngs. IMPRESSION: No acute findings. Yarelis Reyes M.D. [facility] DIAGNOSTIC IMAGING PROCEDURES Chlamydia / gonorrhoeae Amplified RNA (03/27/2018 3:18 PM CDT) [facility] Method Time Signature Source VAGINA 03/30/2018 [facility] 12:39 PM CDT [facility] Chlamydia Negative Negative 03/30/2018 [facility] trachomatis 12:39 PM CDT [facility] amplified RNA [facility] Comment: ----ADDITIONAL INFORMATION---- This report is intended for use in clini faviola monitoring and management of patients. It is not in tended for use in medical-legal applications. Source VAGINA 03/30/2018 12:39 PM [facility] CDT [facility] Neisseria gonorrhoeae Negative Negative 03/30/2018 12:39 P M [facility] amplified RNA CDT [facility] Comment: ----ADDITIONAL INFORMATION---- This report is intended for use in clini faviola monitoring and management of patients. It is not in tended for use in medical-legal applications. Specimen Anatomical Collection Method Collection Time Receive d Time (Source) Location / / Volume Laterality Varies 03/27/2018 3:18 PM 8 (Cervix/Endocerv CDT 11:49 PM CD T ix) Yarelis Reyes M.D. LAB MICROBIOLOGY - GEN ERAL ORDERABLES Performing Organization Address City/State/ZIP Code Phon e Number [facility] [address] [place] [address] LAB documented in this encounter Visit Diagnoses Diagnosis Pain Low Back Unspecified - Primary Abnormal Laboratory Results Pain Neck Pain Low Back Unspecified Pain Neck documented in this encounter Additional Health Concerns Assessment Noted Time PHQ-9 Depression Total Score: 13 12/04/2017 10:[address] documented as of this encounter Care Teams Mapping Engineer Relationship Specialty Start Date End Date Yarelis Reyes M.D. PCP - General 05/08/17 01/03/21 [address] [place] [address] documented as of this encounter
--- OUTSIDE RECORDS SUMMARY | 2022-08-16 21:32 | XMS_ITS | Encounter Summary ---
:1985 Author Organization [facility] Address [address] [place] [address] Care Team Providers Name Role Phone Yarelis Reyes M.D. Primary Care Provider Reason for Visit Reason Comments Communication Encounter Details Date Type Department Care Team Description 10/17/2017 Clinical Communication Department of Internal Demario Villalobos Communication Medicine in [place], [place] M.D. [address] [place] [phone] Social History Tobacco Use Types Packs/Day Years [...] do you attend episcopalian or Never 2021 orthodoxy services? Do you [...] this encounter Miscellaneous Notes Telephone Encounter - Bushra Christy L.P.N. - 10/17/2017 1:16 PM FURNACE TAPPER Patient notified, she was sent to scheduling to make an appointment with Dr. Enriquez. ACE TAPPER Telephone Encounter - Jhonny Enriquez M.D. - 10/17/2017 12:53 PM CST The patient needs to be seen in clinic for evaluation. She reports being treated 6 times for vaginaldischarge and irritation. I do not recommend giving an antibiotic for the symptoms in this situationwithout evaluating the patient. She she be seen in urgent clinic or her primary provider's office regla our clinic at her convenience. ACE TAPPER Telephone Encounter - Bushra Christy L.P.N. - 10/17/2017 12:11 PM FURNACE TAPPER Spoke with patient. She stated that she recently finished antibiotic on Friday, 10/13, and she stated that she is still having a lot of symptoms. She stated that she still has vaginal burning and itching and a watery thin discharge. She stated that she has been on 6 doses of this antibiotic and it is not working, she requested to try another kind to see if it helps. LMP 10/09 that lasted for 2 days then she had a brown D/C after that, she wanted to know if that could of caused her symptoms? Please advise. ACE TAPPER Telephone Encounter - Juanis Holloway - 10/17/2017 10:59 AM CST Patient calling to speak to nurse. States the medication she used for her bacterial vaginosis is notworking anymore. Would like something else. Please advise and call [phone] ACE TAPPER documented in this encounter Plan of Treatment Upcoming Encounters Date Type Specialty Care Team Description 08/30/2022 Clinical Communication Admitting/Central Scheduling 09/02/2022 Comprehensive Visit Endocrinology Ricardo Winkler APRN, C.N.P., D.N.P. [address] [place] [address] documented as of this encounter Visit Diagnoses Not on filedocumented in this encounter Additional Health Concerns Assessment Noted Time PHQ-9 Depression Total Score: 17 08/02/2015 8:53 AM CD T documented as of this encounter Care Teams Hooker Off Relationship Specialty Start Date End Date Yarelis Reyes M.D. PCP - General 05/08/17 01/03/21 [address], [place] [address] documented as of this encounter
--- OUTSIDE RECORDS SUMMARY | 2022-08-16 21:32 | XMS_ITS | Encounter Summary ---
:1985 Author Organization [facility] Address [address] [place] [address] Care Team Providers Name Role Phone Yarelis Reyes M.D. Primary Care Provider [phone] Encounter Details Date Type Department Care Team Description 10/06/2017 Orders Only Department of Obstetrics and Jhonny Enriquez M.D. Gynecology in [place], [place] [address] [place] [address] Social History Tobacco Use [...] or relatives? How often do you attend zoroastrian or Never 2021 synagogue services? Do you belong to any clubs or No 01/25/2022 organizations such as zoroastrian groups, unions, fraternal or athletic groups, or [...] Ricardo Winkler APRN, C.N.P., D.N.P. [address] [place] [address] documented as of this encounter Visit Diagnoses Not on filedocumented in this encounter Additional Health Concerns Assessment Noted Time PHQ-9 Depression Total Score: 17 08/02/2015 8:53 AM CD T documented as of this encounter Care Teams Experimental Mechanic Electrical Relationship Specialty Start Date End Date Yarelis Reyes M.D. PCP - General 05/08/17 01/03/21 [address] [place] [address] documented as of this encounter
--- OUTSIDE RECORDS SUMMARY | 2022-08-16 21:32 | XMS_ITS | Encounter Summary ---
:1985 Author Organization [facility] Address [address] [place] [address] Care Team Providers Name Role Phone Yarelis Reyes M.D. Primary Care Provider [phone] Reason for Visit Reason Comments Communication Encounter Details Date Type Department Care Team Description 01/06/2018 Clinical Communication Department of [facility] Rosamaria Lynch Communication MedicineValerie Jr., M.D. [facility] [place] [address] [place], [place] [address] [address] [place], [place] [phone] [address] (Work) [phone] Social History Tobacco Use Types Packs/Day Years [...] do you attend baptist or Never 2021 sabianism services? Do you belong to any clubs [...] Telephone Encounter - Jhonny Enriquez M.D. - 01/07/2018 9:10 AM CST Please have the patient come into clinic. SKINNER Telephone Encounter - Lori Stauffer R.N. - 01/06/2018 4:46 PM CST Spoke with patient. She stated that she was tested for a vaginal infections yesterday and was given Rx Metrogel. She stated that she is not going to take this as it has not worked for her in the past. She now c/o bloody discharge, lower back pain, and liver pain. She was advised to keep her appointment with you on 01/07. She was also advised to go to the ED if her pain becomes severe before then. SKINNER Telephone Encounter - Chidi Ford - 01/06/2018 12:22 PM CST Keily is calling wanting to discuss her symptoms before her appointment tomorrow. She is generally not feeling well, and says her liver hurts. Please call her to discuss [phone]. SKINNER documented in this encounter Plan of Treatment Upcoming Encounters Date Type Specialty Care Team Description 08/30/2022 Clinical Communication Admitting/Central Scheduling 09/02/2022 Comprehensive Visit Endocrinology Ricardo Winkler, SILVIO, C.N.P., D.N.P. [address] [place] [address] documented as of this encounter Visit Diagnoses Not on filedocumented in this encounter Additional Health Concerns Assessment Noted Time PHQ-9 Depression Total Score: 13 12/04/2017 10:[address] documented as of this encounter Care Teams Digital Analytics Manager Relationship Specialty Start Date End Date Yarelis Reyes M.D. PCP - General 05/08/17 01/03/21 [address] [place] [phone] documented as of this encounter
--- OUTSIDE RECORDS SUMMARY | 2022-08-16 21:32 | XMS_ITS | Encounter Summary ---
:1985 Author Organization [facility] Address [address] [place] [address] Care Team Providers Name Role Phone Yarelis Reyes M.D. Primary Care Provider Encounter Details Date Type Department Care Team Description 10/17/2017 Abstract Department of Occupational Provider, [facility] Medicine in [place], [place] [address] [place] [address] Social History Tobacco Use Types Packs/Day Years [...] do you attend episcopal or Never 2021 temple services? Do you [...] Ricardo Winkler, SILVIO, C.N.P., D.N.P. [address] [place] [address] documented as of this encounter Visit Diagnoses Not on filedocumented in this encounter Additional Health Concerns Assessment Noted Time PHQ-9 Depression Total Score: 17 08/02/2015 8:53 AM CD T documented as of this encounter Care Teams Finance Director Relationship Specialty Start Date End Date Yarelis Reyes M.D. PCP - General 05/08/17 01/03/21 [address] [phone] documented as of this encounter
--- OUTSIDE RECORDS SUMMARY | 2022-08-16 21:32 | XMS_ITS | Encounter Summary ---
:1985 Author Organization [facility] Address [address] [place] [address] Care Team Providers Name Role Phone Yarelis Reyes M.D. Primary Care Provider [phone] Reason for Referral Outpatient (Routine) - Closed Specialty Diagnoses / Procedures Referred By Contact Refer red To Contact Obstetrics and Jhonny Enriquez M.D. [facility] Gynecology [address] [place] [address] Referral ID Status Reason Start Date Expiration Date Visits Requ ested Visits Authorized [id number] Closed 10/17/2017 04/15/2018 [address]IVER Encounter Details Date Type Department Care Team Description 10/17/2017 Orders Only Department of Obstetrics and Jhonny Enriquez M.D. Gynecology in [place], [place] [address] [place] [address] Social History Tobacco Use Types Packs/Day [...] or relatives? How often do you attend holiness or Never 2021 buddhism services? Do you belong to any clubs or No 01/25/2022 organizations such as holiness groups, unions, fraternal or athletic groups, or [...] APRN, C.N.P., D.N.P. [address] [place] [address] Scheduled Referrals Name Type Priority Associated Order Schedule Diagnoses Obstetrics and Outpatient Referral Routine Expect ed: Gynecology office 10/17/2017 , visit (clinic) Expires: 10/17/2020 documented as of this encounter Visit Diagnoses Not on filedocumented in this encounter Additional Health Concerns Assessment Noted Time PHQ-9 Depression Total Score: 17 08/02/2015 8:53 AM CD T documented as of this encounter Care Teams Family Services Coordinator Relationship Specialty Start Date End Date Yarelis Reyes M.D. PCP - General 05/08/17 01/03/21 [address] [place] [address] documented as of this encounter
--- OUTSIDE RECORDS SUMMARY | 2022-08-16 21:32 | XMS_ITS | Encounter Summary ---
:1985 Author Organization [facility] Address [address] [place] [address] Care Team Providers Name Role Phone Yarelis Reyes M.D. Primary Care Provider Reason for Visit Reason Comments Communication Encounter Details Date Type Department Care Team Description 03/24/2018 Clinical Communication Department of Family [facility], Yarelis [place], Clinic, in [place] [address] [place] [phone] Social History Tobacco Use Types Packs/Day [...] or relatives? How often do you attend voodoo or Never 2021 spiritism services? Do you belong to any clubs or No 01/25/2022 organizations such as voodoo groups, unions, fraternal or athletic groups, or [...] encounter Miscellaneous Notes Telephone Encounter - Heidy Patterson L.P.N. - 03/27/2018 9:41 AM CDT Patient scheduled for 1345 03/27/2018 Telephone Encounter - Heidy Patterson L.P.N. - 03/27/2018 8:12 AM CDT Message left for patient to return call for advisement from pcp Telephone Encounter - Krystin Lowe - 03/24/2018 1:45 PM CDT Heidy, has patient been notified that she needs to come in to re-do this before I call her? Telephone Encounter - Heidy Patterson, L.P.N. - 03/24/2018 1:30 PM CDT . Telephone Encounter - Yarelis Reyes M.D. - 03/24/2018 12:27 PM CDT Please have patient schedule a time that I can redo the GC/chlamydia swabs as they came back indeterminate...neither positive or negative. documented in this encounter Plan of Treatment Upcoming Encounters Date Type Specialty Care Team Description 08/30/2022 Clinical Communication Admitting/Central Scheduling 09/02/2022 Comprehensive Visit Endocrinology Ricardo Winkler APRN, C.N.P., D.N.P. [address] [place] [address] documented as of this encounter Visit Diagnoses Not on filedocumented in this encounter Additional Health Concerns Assessment Noted Time PHQ-9 Depression Total Score: 13 12/04/2017 10:[address] documented as of this encounter Care Teams Nurse Ldr Relationship Specialty Start Date End Date Yarelis Reyes M.D. PCP - General 05/08/17 01/03/21 [address] [place] [address] documented as of this encounter
--- OUTSIDE RECORDS SUMMARY | 2022-08-16 21:32 | XMS_ITS | Encounter Summary ---
:1985 Author Organization [facility] Address [address] [place] [address] Care Team Providers Name Role Phone Yarelis Reyes M.D. Primary Care Provider [phone] Encounter Details Date Type Department Care Team Description 11/14/2017 Orders Only Department of Obstetrics and Jhonny Enriquez M.D. Gynecology in [place], [place] [address] [place] [address] Social History Tobacco Use [...] do you attend sabianist or Never 2021 bahai services? Do you [...] Ricardo Winkler, SILVIO, C.N.P., D.N.P. [address] [place] [address] documented as of this encounter Visit Diagnoses Not on filedocumented in this encounter Additional Health Concerns Assessment Noted Time PHQ-9 Depression Total Score: 17 08/02/2015 8:53 AM CD T documented as of this encounter Care Teams Media Planner / Buyer Relationship Specialty Start Date End Date Yarelis Reyes M.D. PCP - General 05/08/17 01/03/21 [address] [id number] documented as of this encounter
--- OUTSIDE RECORDS SUMMARY | 2022-08-16 21:32 | XMS_ITS | Encounter Summary ---
:1985 Author Organization [facility] Address [address] [place] [address] Care Team Providers Name Role Phone Yarelis Reyes M.D. Primary Care Provider [phone] Encounter Details Date Type Department Care Team Description 03/20/2018 Orders Only Department of Obstetrics and Jhonny Enriquez M.D. Gynecology in [place], [place] [address] [place] [address] Social History Tobacco Use [...] do you attend hindu or Never 2021 baptism services? Do you belong to any clubs or No 01/25/2022 organizations such as hindu groups, unions, fraternal or athletic groups, or [...] Ricardo Winkler, SILVIO, C.N.P., D.N.P. [address] [place] [address] documented as of this encounter Visit Diagnoses Not on filedocumented in this encounter Additional Health Concerns Assessment Noted Time PHQ-9 Depression Total Score: 13 12/04/2017 10:[address] documented as of this encounter Care Teams Vegetable Farmworker Relationship Specialty Start Date End Date Yarelis Reyes M.D. PCP - General 05/08/17 01/03/21 [address] [place] [address] documented as of this encounter
--- OUTSIDE RECORDS SUMMARY | 2022-08-16 21:32 | XMS_ITS | Encounter Summary ---
:1985 Author Organization [facility] Address [address] [place] [address] Care Team Providers Name Role Phone Yarelis Reyes M.D. Primary Care Provider [phone] Encounter Details Date Type Department Care Team Description 03/27/2018 Hospital Encounter Department of Radiology Pio Velez Pain Low Back; in [place], Pain Neck [address] [facility] [place] [address] [address] [place], [place] [phone] [address] Social History Tobacco Use Types Packs/Day [...] do you attend scientologist or Never 2021 anabaptist services? Do you [...] or slept in a half-way (including now)? Sex Assigned at Date Recorded Female 06/02/2018 2:38 PM CDT documented as of this encounter Medications at Time of Discharge Medication Sig Dispensed Refills Start Date End Date busPIRone (for_BUSPAR) 10 Take 1 tablet by 0 03/2605/12/2018 mg tablet mouth 2 (two) times a day. DULoxetine (CYMBALTA) 30 Take 1 capsule (30 180 capsule 3 05/12/[address] capsule mg total) by mouth 2 (two) times a day. fluconazole (DIFLUCAN) TAKE 1 TABLET BY 0 018 04/10/2018 150 mg tablet MOUTH FOR 1 DOSE ibuprofen Take 800 mg by 0 07/20/2018 (for_ADVIL,MOTRIN) 200 mg mouth daily. tablet LORazepam (for_ATIVAN) Take 0.5 mg by 0 07/20/2018 0.5 mg tablet mouth 3 (three) times a day as needed for anxiety. metroNIDAZOLE (FLAGYL) TAKE ONE TABLET BY 0 03/2304/10/2018 500 mg tablet MOUTH TWICE A DAY FOR 7 DAYS norelgestromin-ethinyl Apply 1 patch each 9 patch 3 03/2707/20/2018 estradiol (ORTHO EVRA) week for 3 weeks, 150-35 mcg/24 hr patch then remove for 1 week. documented as of this encounter Plan of Treatment Upcoming Encounters Date Type Specialty Care Team Description 08/30/2022 Clinical Communication Admitting/Central Scheduling 09/02/2022 Comprehensive Visit Endocrinology Ricardo Winkler APRN, C.N.P., D.N.P. [address] [place] [address] documented as of this encounter Procedures Procedure Name Priority Date/Time Associated Comments Diagnosis DX THORACIC SPINE RAD - Routine 03/27/2018 3:44 Pain Low Back Resul ts for this 2 VIEWS (most inpatients PM CDT procedure a re in and all the results outpatients) section. DX CERVICAL SPINE RAD - Routine 03/27/2018 3:44 Pain Neck Result s for this 2-3 VIEWS (most inpatients PM CDT procedure a re in and all the results outpatients) section. DX LUMBAR SPINE RAD - Routine 03/27/2018 3:42 Pain Low Back Results for this 2-3 VIEWS (most inpatients PM CDT procedure a re in and all the results outpatients) section. documented in this encounter Results DX [...] lumbar spine. IMPRESSION: No acute findings. Yarelis PISANO DIAGNOSTIC IMAGING PROCEDURES DX Cervical Spine 2-3 [...] Yarelis Reyes M.D. IMG DIAGNOSTIC IMAGING PROCEDURES DX Lumbar Spine 2-3 [...] Yarelis Reyes M.D. IMG DIAGNOSTIC IMAGING PROCEDURES documented in this encounter Visit Diagnoses Diagnosis Pain Low Back Unspecified Pain Neck documented in this encounter Additional Health Concerns Assessment Noted Time PHQ-9 Depression Total Score: 13 12/04/2017 10:[address] documented as of this encounter Care Teams On Line Csr Relationship Specialty Start Date End Date Yarelis Reyes M.D. PCP - General 05/08/17 01/03/[address] [address] documented as of this encounter
--- OUTSIDE RECORDS SUMMARY | 2022-08-16 21:32 | XMS_ITS | Encounter Summary ---
:1985 Author Organization [facility] Address [address] [place] [address] Care Team Providers Name Role Phone Yarelis Reyes M.D. Primary Care Provider Reason for Visit Reason Comments Vaginal Discharge Outpatient (Routine) - Closed Specialty Diagnoses / Procedures Referred By Contact Refer red To Contact Obstetrics and Diagnoses par review Jhonny Enriquez M.D. [facility] Gynecology Procedures OBG EST ALTERATION WORKROOM SUPERVISOR LONG [address] [place] [address] Referral ID Status Reason Start Date Expiration Date Visits Requ ested Visits Authorized [id number] Closed 01/05/2018 07/04/2018 1 1 Encounter Details Date Type Department Care Team Description 01/07/2018 Office Visit Department of Jhonny Enriquez, Vaginosis Ba cterial Obstetrics alejandro Schwartz (Primary Dx) Gynecology in [place], [place] [address] [place] [address] Social History Tobacco Use Types [...] do you attend uatsdin or Never 2021 spiritism services? Do you [...] or slept in a longterm (including now)? Sex Assigned at Date Recorded Female 06/02/2018 2:38 PM CDT documented as of this encounter Last Filed Vital Signs Vital Sign Reading Time Taken Comments Blood Pressure 96/62 01/07/2018 1:08 PM PSYCHIATRY INSTRUCTOR Pulse 70 01/07/2018 1:08 PM PSYCHIATRY INSTRUCTOR Temperature 36.6 ??C (97.9 ??F) 01/07/2018 1:08 PM PSYCHIATRY INSTRUCTOR Respiratory Rate - - Oxygen Saturation - - Inhaled Oxygen Concentration - - Weight 71.9 kg (158 lb 6.4 oz) 01/07/2018 1:08 PM PSYCHIATRY INSTRUCTOR Height 152 cm (4' 11.84) 01/07/2018 1:08 PM PSYCHIATRY INSTRUCTOR Body Mass Index 31.1 01/07/2018 1:08 PM PSYCHIATRY INSTRUCTOR documented in this encounter Consult Notes Jhonny Enriquez M.D. - 01/07/2018 1:15 PM CST CHIEF COMPLAINT / REASON FOR VISIT Vaginal irritation and vaginal discharge HISTORY OF PRESENT ILLNESS Keily Ng is a 32 y.o. with Patient's last menstrual period was 11/25/2017 (approximate). who complaints of vaginal discharge and vaginal itching. She reports the symptoms have been ongoing for 1 week. She has tried no medication for the symptoms. She was seen in the clinic on 01/05/2018 and diagnosed with bacterial vaginosis and given a prescription for Flagyl. She did not bulk picker the Flagyl prescription because it did not work for her last time. She is requesting a prescription for different medication. She was concerned that she might be but her test was negative. She reports menses every 1-2 months. She is unable to afford contraception. Vaginal irritation: Present Vaginal itching: Present Vaginal discharge: Present Vaginal odor: Present Vaginal bleeding: Vaginal spotting Fever or chills: Denies Problem with urination: Denies Problem with defecation: Denies ALLERGIES No Known Allergies MEDICATIONS Current Outpatient Prescriptions: ??? ibuprofen (for_ADVIL,MOTRIN) 200 mg tablet, Take 800 mg by mouth daily., Disp: , Rfl: ??? busPIRone (for_BUSPAR) 10 mg tablet, Take 1 tablet by mouth 2 (two) times a day., Disp: , Rfl: ??? clindamycin (for_CLEOCIN) 2 % vaginal cream, Insert 1 applicator into the vagina at bedtime for 7 days., Disp: 40 g, Rfl: 0 ??? LORazepam (for_ATIVAN) 0.5 mg tablet, Take 0.5 mg by mouth 3 (three) times a day as needed for anxiety., Disp: , Rfl: REVIEW OF SYSTEMS As per HPI otherwise negative. PAST MEDICAL HISTORY Past Medical History: Diagnosis Date ??? Abuse Tobacco Smoking 06/27/2010 ??? Bipolar I Depressed ([facility]) 10/22/2011 Bipolar disorder, depressed ??? Cervical Dysplasia Personal History 04/02/2010 ??? Diabetes Mellitus Gestational 01/05/2015 ??? Headache Tension Chronic 09/05/2014 ??? Pain Musculoskeletal NOS 11/18/2014 ??? Polycystic Ovary Syndrome 04/02/2010 PAST SURGICAL HISTORY Past Surgical History: Procedure Laterality Date ??? LAPAROSCOPIC APPENDECTOMY N/A 12/25/2012 ??? LEEP PROCEDURE - LOOP ELECTRO EXCISION PROCEDURE N/A 2006 OBSTETRIC HISTORY OB History Para Term AB Living 7 4 4 0 3 4 SAB TAB Ectopic Molar Multiple Live Births 3 0 0 0 0 4 # Outcome Date GA Lbr Saroj/2nd Weight Sex Delivery Anes PTL Lv 7 Term 02/17/15 Vag-Spont 6 Term 11/06/10 Vag-Spont 5 Term 08/16/08 Vag-Spont 4 Term 02/10/02 Vag-Spont 3 SAB SAB SA 2 SAB SAB SA 1 SAB SAB SA SOCIAL HISTORY Social History Social History ??? Marital status: Single Spouse name: N/A ??? Number of children: 4 ??? Years of education: N/A Occupational History ??? Not on file. Social History Main Topics ??? Smoking status: Former Smoker Types: Cigarettes Quit date: 2013 ??? Smokeless tobacco: Never Used ??? Alcohol use Yes ??? Drug use: No ??? Sexual activity: Yes Partners: Male control/ protection: Patch Other Topics Concern ??? Not on file Social History Narrative ??? No narrative on file OBJECTIVE BP 96/62 Pulse 70 Temp 36.6 ??C Ht 152 cm Wt 71.9 kg LMP 11/25/2017 (Approximate) BMI 31.10 kg/m?? General: Well-developed, well-nourished female in no apparent distress. Mental: Alert and oriented times three. Affect pleasant. Mood happy. Abdomen: Soft, nontender, nondistended, positive bowel sounds. No organomegaly. No rebound, no guarding. Pelvic exam: External female genitalia is normal. Normal Bartholin, Urethral and [place]'s glands. Vaginal mucosa is erythematous with a [...] clubbing cyanosis or edema. Nontender bilaterally. DIAGNOSTICS 01/05/2018 Vaginitis panel: Positive for bacterial vaginosis, negative hyphae, negative Trichomonas 01/05/2018 urine test: Negative 01/05/2018 quantitative HCG: Negative ASSESSMENT / PLAN Keily Ng is a 32 y.o. female who complaints of vaginal itching and irritation. 1 Bacterial vaginosis - Treatment: Cleocin cream daily x 7 days and abstain from coitus during course of treatment - Return to clinic as needed if symptoms persist or worsen. - I encouraged patient to apply for medical insurance so that she can restart control. - I recommend the patient go to social media marketer apply for [facility] family planning program which provides low cost and free cost contraception. - Problem list reviewed and updated. Jhonny Enriquez MD Hand Etcher Helper - Obstetrics and Gynecology [facility] HIATRY INSTRUCTOR documented in this encounter Plan of Treatment Upcoming Encounters Date Type Specialty Care Team Description 08/30/2022 Clinical Communication Admitting/Central Scheduling 09/02/2022 Comprehensive Visit Endocrinology Ricardo Winkler, SILVIO, C.N.P., D.N.P. [address] [place] [address] documented as of this encounter Visit Diagnoses Diagnosis Vaginosis Bacterial - Primary documented in this encounter Additional Health Concerns Assessment Noted Time PHQ-9 Depression Total Score: 13 12/04/2017 10:[address] documented as of this encounter Care Teams Turnstile Attendant Relationship Specialty Start Date End Date Yarelis Reyes M.D. PCP - General 05/08/17 01/03/21 [address] [place] [address] documented as of this encounter
--- OUTSIDE RECORDS SUMMARY | 2022-08-16 21:32 | XMS_ITS | Encounter Summary ---
:1985 Author Organization [facility] Address [address] [place] [address] Care Team Providers Name Role Phone Unavailable Primary Care Provider Unavailable Encounter Details Date Type Department Care Team Description 04/23/2017 Hospital Encounter HX [facility] FAMILYPRA Nahed Tang P.A.-C. [address] [place] [address] (Wo rk) Social History Tobacco Use Types [...] or relatives? How often do you attend tenriism or Never 2021 jainism services? Do you belong to any clubs or No 01/25/2022 organizations such as tenriism groups, unions, fraternal or athletic groups, or [...] Sign Reading Time Taken Comments Blood Pressure 94/60 04/23/2017 4:43 PM CDT Pulse 68 04/23/2017 4:43 PM CDT Temperature - - Respiratory Rate 16 04/23/2017 4:43 PM CDT Oxygen Saturation - - Inhaled Oxygen Concentration - - Weight 70.4 kg (155 lb 1.5 oz) 04/23/2017 4:43 PM CDT Height 152 cm (4' 11.84) 04/23/2017 4:43 PM CDT Body Mass Index 30.45 04/23/2017 4:43 PM CDT documented in this encounter Medications at Time of Discharge Medication Sig Dispensed Refills Start Date End Date busPIRone (for_BUSPAR) Take 1 tablet by mouth 0 0 04/23/2017 05/12/2018 10 mg tablet 2 (two) times a day. norelgestromin-ethinyl Apply 1 patch 0 12/18/2016 01/07/2018 estradiol (ORTHO EVRA) topically once a week. 150-35 mcg/24 hr patch documented as of this encounter Progress Notes Svetlana Tang P.A.-C. - 04/23/2017 4:33 PM CDT [id number] CHIEF COMPLAINT/REASON FOR VISIT Depression and bruising. HISTORY OF PRESENT ILLNESS Keily is a 31-year-old female who has a history of depression. She has been diagnosed with bipolar disorder. She has been on different medications for this but did not really think any of them helped.She is not currently seeing a therapist and she has not seen a psychiatrist for some time. She feelsas though it is her anxiety that has really been bothering her. She describes many episodes where she has had a panic attack over the last week or so. She says the last few days have been really bad. She has had increased stress in her life with her father who is ill. She describes episodes of left-sided chest discomfort, shoulder discomfort, shortness of breath that have all been fairly short lived.One happened while she was driving. In the past she has been on lorazepam for this as well. She is wondering what she should do about these symptoms. She has also been bruising more than normal which is concerning for her. On the right arm she has a bruise that has been there for a week. PAST MEDICAL/SURGICAL HISTORY Reviewed in the EMR. VITAL SIGNS Noted in EMR. PHYSICAL EXAMINATION GENERAL: She appears in no acute distress. She does have a bruise on her right arm. ENT: Neck with no lymphadenopathy. No thyroid masses. HEART: Regular rate and rhythm. No murmurs. LUNGS: Clear to auscultation. Chest has no reproducible discomfort to palpation of her chest. No discomfort to palpation of her shoulder. IMPRESSION/REPORT/PLAN 1. Panic attack. I think most likely this is her cause of her symptoms. They have been short lived episodes. She has a history of anxiety in the past that is contributing to this. She also has some current anxiety going on in her life. I am going to give her a trial of some buspirone. She has never been on a medication like this before. We will have her try 10 mg 2 times a day and see how she responds. If it does not improve she will let us know. 2. Bruising. Many possible etiologies. She says she has a history of anemia. I am going to check a CBC as well as a ferritin. I will notify her when I get the results. If there is questions or problemsshe will let us know. Total time spent today with Keily was 25 minutes, of which 20 of it was in [id number] coordination of care and counseling. Svetlana Tang P.A.-C./cristiano Electronically Signed By: SVETLANA TANG PA-C On: 04/25/2017 08:40 AM Source: [facility] MHSDOLBEYNONRADSYS Document Id: [id number] documented in this encounter Miscellaneous Notes Telephone Encounter - Edel Chopra L.P.N. - 04/24/2017 10:25 AM CDT FW: Previous testing Document Contains Addenda Addendum by EDEL CHOPRA LPN on April 24, 2017 16:48:29 CDT From: EDEL CHOPRA LPN ( Family Medicine Nurse) To: KEIYL NG Sent: 04/24/2017 16:48:29 CDT Subject: FW: Previous testing Dr. Delaney Michaud would like you to come in for a 30 minute appointment to talk with you about this. You can call [phone] to schedule at your convenience. Thank you, Edel Addendum by KAREN FUENTES MD on April 24, 2017 16:40:21 CDT From: KAREN FUENTES MD To: Family Medicine Nurse; Sent: 04/24/2017 16:40:21 CDT Subject: RE: Previous testing Please lloyd Michaud come in for a 30 m inute appointment so we can start to put some of the pieces together and make plans. From: EDEL CHOPRA LPN ( Family Medicine Nurse) To: KAREN FUENTES MD; Sent: 04/24/2017 10:25:10 CDT Subject: FW: Previous testing From: KEILY NG To: [facility] ( Family Medicine Nurse) Sent: 04/24/2017 10:12 a.m. CDT Subject: Previous testing Thank you for your message. It has been successfully sent to the appropriate care team. I have always had a high white blood cell count. Is there any way its related to some kind of arthritis? I just know something is not right with me. Serena been sent to [place] before to get checked forleukemia because of blood testing in the past. Because of conditions both of my parents suffer from.I just need to know what is going on with me so I can prevent something worse, or deal with what is. From: SVETLANA TANG PA-C To: KEILY NG Sent: 04/24/2017 08:22:07 CDT Keily, You are not anemic and your platelets are good so there is no good explaination for your bruising. Your white blood count is slightly elevated along with some of your other indices. This could represent an infection either by a virus or a bacteria but there wasnt any apparent source of infection when I saw you yesterday. Your anxiety could cause this also so for now , I recommend that we continue with the medicine for anxiety and see how you do. We can recheck another CBC at a later date. Let us know if symptoms worsen or do not improve. Svetlana Results: Date Result Name Ind Value Ref Range 04/23/2017 17:30 Ferritin Lvl 100 mcg/L (13 - 150) 04/23/2017 17:30 Hgb 13.1 g/dL (12.0 - 15.5) 04/23/2017 17:30 Hct 39.9 % (34.9 - 44.5) 04/23/2017 17:30 WBC (H) 13.6 x10(9)/L (3.4 - 10.5) 04/23/2017 17:30 RBC 4.09 x10(12)/L (3.90 - 5.03) 04/23/2017 17:30 MCV 97.6 fL (82.0 - 98.0) 04/23/2017 17:30 RDW 13.2 % (11.9 - 15.5) 04/23/2017 17:30 Platelet 449 x10(9)/L (150 - 450) 04/23/2017 17:30 Neutro Absolute (H) 9.26 10(9)/L (1.70 - 7.00) 04/23/2017 17:30 Lymph Absolute (H) 3.08 x10(9)/L (0.90 - 2.90) 04/23/2017 17:30 [place]inee Absolute (H) 0.92 x10(9)/L (0.30 - 0.90) 04/23/2017 17:30 Eos Absolute 0.26 x10(9)/L (0.05 - 0.50) 04/23/2017 17:30 Baso Absolute 0.04 x10(9)/L (0.00 - 0.30) Source: [facility] POWERCHART Document Id: [id number] Electronically signed by Conversion, [facility] Dealer Sales Manager [id number] at 05/27/2017 4:06 PM CDT Miscellaneous - Svetlana Tang P.A.-C. - 04/24/2017 8:22 AM CDT From: SVETLANA TANG PA-C To: KEILY NG Sent: 04/24/2017 08:22:07 CDT Keily, You are not anemic and your platelets are good so there is no good explaination for your bruising. Your white blood count is slightly elevated along with some of your other indices. This could represent an infection either by a virus or a bacteria but there wasn't any apparent source of infection whenI saw you yesterday. Your anxiety could cause this also so for now , I recommend that we continue with the medicine for anxiety and see how you do. We can recheck another CBC at a later date. Let us know if symptoms worsen or do not improve. Svetlana Results: Date Result Name Ind Value Ref Range 04/23/2017 17:30 Ferritin Lvl 100 mcg/L (13 - 150) 04/23/2017 17:30 Hgb 13.1 g/dL (12.0 - 15.5) 04/23/2017 17:30 Hct 39.9 % (34.9 - 44.5) 04/23/2017 17:30 WBC (H) 13.6 x10(9)/L (3.4 - 10.5) 04/23/2017 17:30 RBC 4.09 x10(12)/L (3.90 - 5.03) 04/23/2017 17:30 MCV 97.6 fL (82.0 - 98.0) 04/23/2017 17:30 RDW 13.2 % (11.9 - 15.5) 04/23/2017 17:30 Platelet 449 x10(9)/L (150 - 450) 04/23/2017 17:30 Neutro Absolute (H) 9.26 10(9)/L (1.70 - 7.00) 04/23/2017 17:30 Lymph Absolute (H) 3.08 x10(9)/L (0.90 - 2.90) 04/23/2017 17:30 [place] Absolute (H) 0.92 x10(9)/L (0.30 - 0.90) 04/23/2017 17:30 Eos Absolute 0.26 x10(9)/L (0.05 - 0.50) 04/23/2017 17:30 Baso Absolute 0.04 x10(9)/L (0.00 - 0.30) Source: [facility] POWERCHART Document Id: [id number] Electronically signed by Wendi, [facility] Dealer Sales Manager [id number] at 05/27/2017 4:06 PM CDT Miscellaneous - Svetlana Tnag P.A.-C. - 04/23/2017 5:47 PM CDT Ambulatory Patient Summary [address] [id number] Visit Information Name: KEILY NG [facility] Number: [id number] Current Date: 04/23/2017 17:47:10 Physicians Attending Provider: SVETLANA TANG PA-C Primary Care Provider: KAREN FUENTES MD KEILY NG has been given the following list of follow-up instructions, medication list, and patient education materials: Follow-up Instructions Your Medications Here is a list of your medications. It is important to take your medications as directed. Use a pillbox or chart to help remind you to take your medications. Please let your doctor or nurse know if you have problems taking your medications. Medication/Strength How to Take Indications/Special Instructions/Comments/Notes for Patient Medication Changes/Routing albuterol (albuterol 5 mg/mL (0.5%) inhalation solution) 0.5 Milliliter, Inhalation, every 6 hours as needed for wheezing busPIRone (BuSpar 10 mg oral tablet) 1 Tablet(s), Oral, two times a day New Routed to [address] [address] *fluconazole (Diflucan 150 mg oral tablet) 1 Tablet(s), Oral, 2 times a week LORazepam (Ativan 0.5 mg oral tablet) 1 Tablet(s), Oral, three times a day as needed for Anxiety x 7day(s) New Routed to [facility] *norelgestromin-ethinyl estradiol (Ortho Evra 150 mcg-35 mcg/24 hr transdermal film, extended release) 1 patch(es), Topical, every week Apply one patch each week for 3 weeks (21 total days); followed by one week that is patch-free. * You have let us know that you are not taking this medication as listed. Please talk with your primary care provider or the health care provider who prescribed the medication as soon as possible. Stop Taking the Following Medications: Medication list as of 04-23-17 17:47 Attention: If you have any medications at home that are not on this list, DO NOT take them until youcontact your provider for clarification. Give a copy of your medication list to your primary care provider. Update your medication list any time medications or doses are changed and carry your medication list at all times in case of emergency. Electronically Signed By: SVETLANA TANG PA-C Signed On:23-APR-2017 17:47:08 Your Allergies & Intolerances Substance Reaction Symptoms Category Comments No Known Allergies Drug Your Problem List Problem Status Onset Comments Tobacco Use Disorder Active 04/02/2010 Bipolar disorder, depressed Active Polycystic ovarian disease Active Personal History of Cervical Dysplasia Active 10/03/2006 Depressive disorder, major, recurrent episode Active Headache (PAGAN) Tension Chronic Active Pain Musculoskeletal Active Diabetes Mellitus Gestational Preg Antepartum Active Breast Lump Active Your Upcoming Appointments Date Time Location Provider No Appointments found Attention: Contact your local Clinic if further appointment detail needed. Consider Using Patient Online Services Patient Online Services is a secure online and Mobile application that lets you: ?? View lab and test results ?? View portions of your medical record including clinical notes, immunizations and discharge summaries ?? Request an appointment or medication refill ?? Review your appointment schedule ?? Send secure messages to your care team Its easy to create an account if you dont have one. Go to [email or web address] and click on Create Your Account. Then, follow the directions to complete the online form. Youll be asked for your [facility] number which you can find at the top of this document. Your Goals/Additional instructions: Source: [facility] POWERCHART Document Id: [id number] Miscellaneous - Svetlana Tang P.A.-C. - 04/23/2017 5:47 PM CDT Ambulatory Discharge Medication List [address] [id number] Visit Information Name: KEILY NG [facility] Number: [id number] Current Date: 04/23/2017 17:47:10 Attending Provider: SVETLANA TANG PA-C Primary Care Provider: KAREN FUENTES MD KEILY NG has been given the following list of medications: Your Medications It is important to take your medications as directed. Use a pill box or chart to help remind you to take your medications. Please let your doctor or nurse know if you have problems taking your medications. Medication/Strength How to Take Indications/Special Instructions/Comments/Notes for Patient Medication Changes/Routing albuterol (albuterol 5 mg/mL (0.5%) inhalation solution) 0.5 Milliliter, Inhalation, every 6 hours as needed for wheezing busPIRone (BuSpar 10 mg oral tablet) 1 Tablet(s), Oral, two times a day New Routed to [address] [address] *fluconazole (Diflucan 150 mg oral tablet) 1 Tablet(s), Oral, 2 times a week LORazepam (Ativan 0.5 mg oral tablet) 1 Tablet(s), Oral, three times a day as needed for Anxiety x 7day(s) New Routed to [facility] *norelgestromin-ethinyl estradiol (Ortho Evra 150 mcg-35 mcg/24 hr transdermal film, extended release) 1 patch(es), Topical, every week Apply one patch each week for 3 weeks (21 total days); followed by one week that is patch-free. * You have let us know that you are not taking this medication as listed. Please talk with your primary care provider or the health care provider who prescribed the medication as soon as possible. Stop Taking the Following Medications: Medication list as of 04-23-17 17:47 Attention: If you have any medications at home that are not on this list, DO NOT take them until youcontact your provider for clarification. Give a copy of your medication list to your primary care provider. Update your medication list any time medications or doses are changed and carry your medication list at all times in case of emergency. Electronically Signed By: SVETLANA TANG PA-C Signed On:23-APR-2017 17:47:08 Additional Information: Source: [facility] POWERCHART Document Id: [id number] Miscellaneous - Luis Leggett L.P.NAmaris - 04/23/2017 4:43 PM CDT Adult Delivery Agent Intake/History Adult Delivery Agent Intake/History Entered On: 04/23/2017 16:49 CDT Performed On: 04/23/2017 16:43 CDT by LUIS LEGGETT LPN Intake Chief Complaint : chest, shoulder discomfort and panic attacks for past 12 days. Temperature Core : 36.6 DegC(Converted to: 97.9 DegF) Peripheral Pulse Rate : 68 /min Respiratory Rate : 16 /min Systolic Blood Pressure : 94 mmHg Diastolic Blood Pressure : 60 mmHg NIBP Mean : 71 mmHg BP Location : Right upper extremity Blood Pressure Cuff Size : Regular Height : 152 cm(Converted to: 5 ft 0 inch(es), 60 inch(es)) Actual Weight : 70.35 kg(Converted to: 155 lb 2 oz) Weight Source : Standing scale Dosing Weight Clinic : 70.35 kg Clinic BSA : 1.72 Body Mass Index : 30.45 kg/m2 LUIS LEGGETT LPN - 04/23/2017 16:43 CDT General Info Languages : Italian Is Patient Female and 13-50 no hysterectomy : Yes Status : Patient denies Are you ? : No LALY LEGGETTMalissa Velasquez [facility] - 04/23/2017 16:43 CDT Subjective Pain Symptoms : No LUIS LEGGETT Eva FAITHN - 04/23/2017 16:43 CDT Dependent Habits Exposure to Tobacco Smoke : Other: former. Quit 06/2014 Smoking Status : Former smoker Tobacco 2A : Yes Tobacco Use/Currently Using : No Tobacco Use/Last 30 Days : No Tobacco Use/Last 12 months : No LUIS LEGGETT Eva [facility] - 04/23/2017 16:43 CDT Caffeine Use Grid Caffeine Use : None LUIS LEGGETT [facility] - 04/23/2017 16:43 CDT Recreational Drug Use Grid Drug Use : None OLEKSANDRLUIS [facility] - 04/23/2017 16:43 CDT Source: [facility] Document Id: [id number]!37 documented in this encounter Plan of Treatment Upcoming Encounters Date Type Specialty Care Team Description 08/30/2022 Clinical Communication Admitting/Central Scheduling 09/02/2022 Comprehensive Visit Endocrinology Ricardo Winkler APRN, C.N.P., D.N.P. [address] [place] [address] documented as of this encounter Procedures Procedure Name Priority Date/Time Associated Diagnosis Comme nts AUTOMATED Routine 04/23/2017 5:30 PM Results f or this DIFFERENTIAL, B CDT procedure ar e in the results section. CBC WITH Routine 04/23/2017 5:30 PM Results f or this DIFFERENTIAL, B CDT procedure ar e in the results section. FERRITIN, S Routine 04/23/2017 5:30 PM Results f or this CDT procedure are i n the results section. documented in this encounter Results (ABNORMAL) Automated Differential (04/23/2017 5:30 PM CDT) [facility] Method Time Signature Absolute 9.26 (H) 1.70 - POWERCHART Neutrophils 7.00 109L Lymphocytes 3.08 (H) 0.90 - POWERCHART 2.90 X109L Monocytes 0.92 (H) 0.30 - POWERCHART 0.90 X109L Eosinophils 0.26 0.05 - POWERCHART 0.50 X109L Absolute 0.04 0.00 - POWERCHART Basophil 0.30 X109L Specimen Anatomical Collection Method Collection Time Receive d Time (Source) Location / / Volume Laterality Blood 04/23/2017 5:30 PM 7 5:30 CDT PM CDT Svetlana Tang P.A.-C. LAB BLOOD ADD-ON Performing Organization Address City/State/ZIP Code Phon e Number POWERCHART (ABNORMAL) CBC with Differential (04/23/2017 5:30 PM CDT) Analysis Performed At Patho logist Time Signature Leukocytes 13.6 (H) 3.4 - 10.5 POWERCHART X109L Erythrocytes 4.09 3.90 - POWERCHART 5.03 Q6262I Hemoglobin 13.1 12.0 - POWERCHART 15.5 GDL Hematocrit 39.9 34.9 - POWERCHART 44.5 MCV 97.6 82.0 - POWERCHART 98.0 FL HX RDW 13.2 11.9 - POWERCHART 15.5 Platelet Count 449 150 - 450 POWERCHART X109L Specimen (Source) Anatomical Collection Method Collection Time Re ceived Time Location / / Volume Laterality Blood 04/23/2017 5:30 PM CDT Svetlana Tang P.A.-C. LAB BLOOD ADD-ON Performing Organization Address City/[facility]/ZIP Code Phon e Number POWERCHART Ferritin (04/23/2017 5:30 PM CDT) P athologist Signature Ferritin, S 100 13 - 150 POWERCHART [facility]GL Comment: Reference values have not been establish ed for women <17 or >60 years of age. Reference values have not been establish ed for men <20 or >60 years of age. Biotin has been identified by the sean mensahurer as a potential interfering substance. Higher concentrations of biotin may be found in multivitamins, hair/nail supplements, and workout supplements. If the result does not match clinical observat ions, repeat testing after patient refrains from the use of supplements for at least 12 hours. Specimen (Source) Anatomical Collection Method Collection Time Re ceived Time Location / / Volume Laterality Blood 04/23/2017 5:30 PM CDT Svetlana Tang P.A.-C. LAB BLOOD ADD-ON Performing Organization Address City/State/ZIP Code Phon e Number POWERCHART documented in this encounter Visit Diagnoses Not on filedocumented in this encounter Additional Health Concerns Assessment Noted Time PHQ-9 Depression Total Score: 17 08/02/2015 8:53 AM CD T documented as of this encounter
--- OUTSIDE RECORDS SUMMARY | 2022-08-16 21:32 | XMS_ITS | Encounter Summary ---
:1985 Author Organization [facility] Address [address] [place] [address] Care Team Providers Name Role Phone Yarelis Reyes M.D. Primary Care Provider [phone] Encounter Details Date Type Department Care Team Description 03/24/2018 Orders Only Department of [facility] Zuleima araujo (Primary Dx) Medicine, Yarelis Bravo, Clinic, in [place] [address] [place] [address] [facility] [id number] Social History Tobacco Use Types Packs/Day [...] do you attend yarsanism or Never 2021 druze services? Do you [...] Ricardo Winkler, SILVIO, C.N.P., D.N.P. [address] [place] [address] documented as of this encounter Visit Diagnoses Diagnosis Vaginitis - Primary documented in this encounter Additional Health Concerns Assessment Noted Time PHQ-9 Depression Total Score: 13 12/04/2017 10:23 AM C documented as of this encounter Care Teams Reconstructive Dentist Relationship Specialty Start Date End Date Yarelis Reyes M.D. PCP - General 05/08/17 01/03/21 [address], [place] [id number] documented as of this encounter
--- OUTSIDE RECORDS SUMMARY | 2022-08-16 21:32 | XMS_ITS | Encounter Summary ---
:1985 Author Organization [facility] Address [address] [place] [address] Care Team Providers Name Role Phone Yarelis Reyes M.D. Primary Care Provider Reason for Visit Reason Comments Vaginitis/Bacterial Vaginosis Outpatient (Routine) - Closed Specialty Diagnoses / Procedures Referred By Contact Refer red To Contact Obstetrics and Jhonny Enriquez M.D. [facility] Gynecology [address] [place] [address] Referral ID Status Reason Start Date Expiration Date Visits Requ ested Visits Authorized [id number] Closed 10/17/2017 04/15/2018 1 1 Encounter Details Date Type Department Care Team Description 10/17/2017 Office Visit Department of Jhonny Enriquez, Vaginitis (P rimary Dx); Obstetrics and MAmarisDAmaris Discharge Vag inal; Gynecology in Depression Fred or Recurrent ([facility] [place], [place] [address] [place] [id number] Social History Tobacco Use Types Packs/Day Years [...] do you attend presybeterian or Never 2021 orthodox services? Do you [...] Sign Reading Time Taken Comments Blood Pressure 98/64 10/17/2017 2:33 PM LAW FIRM RECEPTIONIST Pulse 70 10/17/2017 2:33 PM LAW FIRM RECEPTIONIST Temperature 36.2 ??C (97.2 ??F) 10/17/2017 2:33 PM LAW FIRM RECEPTIONIST Respiratory Rate 16 10/17/2017 2:33 PM LAW FIRM RECEPTIONIST Oxygen Saturation - - Inhaled Oxygen Concentration - - Weight 71.2 kg (157 lb 1.2 oz) 10/17/2017 2:33 PM LAW FIRM RECEPTIONIST Height 152 cm (4' 11.84) 10/17/2017 2:33 PM LAW FIRM RECEPTIONIST Body Mass Index 30.84 10/17/2017 2:33 PM LAW FIRM RECEPTIONIST documented in this encounter Progress Notes Jhonny Enriquez M.D. - 10/17/2017 2:45 PM CST SUBJECTIVE REASON FOR VISIT Vaginitis/Bacterial Vaginosis HISTORY OF PRESENT ILLNESS Ms. Ng is a 32 y.o. with a last menstrual period of Patient's last menstrual period was 10/10/2017 (exact date).. She present with complaints of vaginal discharge, vaginal itching and burning. This started 3 week(s) ago. She reports being treated for bacterial vaginosis or vaginal candidiasis fiber 6 times in the last 7 months. She took a prescription of Flagyl at end of August for similar vaginal discharge itching and burning symptoms. She reports that the symptoms improved for few days and then returned. She had just started 2nd course of Flagyl on 10/06/2017 and to get for 7 days. She reports that her vaginal discharge itching irritation and vaginal burning symptoms have not resolved with 2 courses of Flagyl in the last 4 weeks. She was not seen in clinic for evaluation of this vaginal discharge and irritation. She reports normal menses on 10/10/2017 and denies menorrhagia or intermenstrual bleeding. She denies fevers or chills. No difficulty urinating. OBJECTIVE BP 98/64 Pulse 70 Temp 36.2 ??C Resp 16 Ht 152 cm Wt 71.2 kg LMP 10/10/2017 (Exact Date) BMI 30.84 kg/m?? PHYSICAL EXAM Pelvic Exam: normal mucosa, no discharge, no lesions, no erythema, normal physiological discharge, no malodor, no tenderness on examination. Wet Prep/ANDREW: positive hyphae and positive clue cells ASSESSMENT / PLAN Vaginitis of uncertain etiology. Wet Prep & ANDREW sent to lab. Treatment: Cleocin Ovule at bedtime x 3 days, abstain from coitus during course of treatment and Diflucan - I recommend the patient wear cotton underwear. - Perineal hygiene is discussed with the patient. - I recommend the patient follow up with the primary provider for adult preventive services and as needed. ROV prn if symptoms persist or worsen. Jhonny Enriquez MD Cathode Washer - Obstetrics and Gynecology [facility] FIRM RECEPTIONIST documented in this encounter Plan of Treatment Upcoming Encounters Date Type Specialty Care Team Description 08/30/2022 Clinical Communication Admitting/Central Scheduling 09/02/2022 Comprehensive Visit Endocrinology Ricardo Winkler, SILVIO, C.N.P., D.N.P. [address] [place] [address] documented as of this encounter Procedures Procedure Name Priority Date/Time Associated Diagnosis Comme nts VAGINITIS PANEL Routine 10/17/2017 2:48 PM Discharge Vag inal Results for this LAW FIRM RECEPTIONIST Vaginitis procedure are i n the results section. documented in this encounter Results (ABNORMAL) Vaginitis Panel Vagina (10/17/2017 2:48 PM LAW FIRM RECEPTIONIST) [facility] Method Time Signature Francia Positive (A) Negative 10/17/2017 [facility] species, DNA 3:45 PM [facility] Gardnerella Positive (A) Negative 10/17/2017 [facility] vaginalis, DNA 3:45 PM LAW FIRM RECEPTIONIST - [facility] Trichomonas Negative Negative 10/17/2017 [facility] vaginalis, DNA 3:45 PM [facility] Specimen Anatomical Collection Method Collection Time Receive d Time (Source) Location / / Volume Laterality Swab (Vagina) 10/17/2017 2:48 PM 10/17/20 17 2:53 LAW FIRM RECEPTIONIST PM LAW FIRM RECEPTIONIST Jhonny Enriquez M.D. LAB MICROBIOLOGY - GENERAL O RDERABLES Performing Organization Address City/State/ZIP Code Phon e Number [facility] [address] [place] [address] [facility]- [address] [place] [address] [facility] documented in this encounter Visit Diagnoses Diagnosis Vaginitis - Primary Discharge Vaginal Depression Major Recurrent (HCC) documented in this encounter Additional Health Concerns Assessment Noted Time PHQ-9 Depression Total Score: 17 08/02/2015 8:53 AM CD T documented as of this encounter Care Teams Farmworkers Relationship Specialty Start Date End Date Yarelis Reyes M.D. PCP - General 05/08/17 01/03/[address] [phone] documented as of this encounter
--- OUTSIDE RECORDS SUMMARY | 2022-08-16 21:32 | XMS_ITS | Encounter Summary ---
:1985 Author Organization [facility] Address [address] [place] [address] Care Team Providers Name Role Phone Yarelis Reyes M.D. Primary Care Provider Reason for Visit Reason Onset Date Comments x-ray results 03/26/2018 Encounter Details Date Type Department Care Team Description 03/26/2018 Clinical Communication Department of Family Delaney Rm x-ray results Medicine, Yarelis Mendoza, [facility], in [place] [address] [facility] [place] [place] [phone] Social History Tobacco Use Types Packs/Day Years [...] do you attend methodist or Never 2021 gnosticism services? Do you [...] this encounter Miscellaneous Notes Telephone Encounter - Gladys Aguilera C.MMary - 04/02/2018 11:32 AM CDT Please read results And advise Telephone Encounter - Maddie Minaya - 04/02/2018 11:28 AM CDT Patient called back - she had the x-ray done on 03/27/18 and hasn't gotten the results yet. She would like a call back. Telephone Encounter - Emily Barajas C.MMary - 03/26/2018 3:10 PM CDT Patient was sent to scheduling to make an appointment for x-rays. Telephone Encounter - Noemi Ram - 03/26/2018 2:37 PM CDT Patient cannot wait two months to see a pain specialist. She said she will probably end up in the emergency room today because she's in so much pain and she can't think about moving, even not moving hurts. She said she needs X/Rays or she needs more done, she has small kids she can't take care of them, and she can't even wash her hair. Please call patient back. Refused NL. documented in this encounter Plan of Treatment Upcoming Encounters Date Type Specialty Care Team Description 08/30/2022 Clinical Communication Admitting/Central Scheduling 09/02/2022 Comprehensive Visit Endocrinology Ricardo Winkler APRN, C.N.P., D.N.P. [address] [place] [address] documented as of this encounter Visit Diagnoses Not on filedocumented in this encounter Additional Health Concerns Assessment Noted Time PHQ-9 Depression Total Score: 13 12/04/2017 10:[address] documented as of this encounter Care Teams Hotel Front Desk Clerk Relationship Specialty Start Date End Date Yarelis Reyes M.D. PCP - General 05/08/17 01/03/21 [address], [place] [address] documented as of this encounter
--- OUTSIDE RECORDS SUMMARY | 2022-08-16 21:32 | XMS_ITS | Encounter Summary ---
:1985 Author Organization [facility] Address [address] [place] [address] Care Team Providers Name Role Phone Yarelis Reyes M.D. Primary Care Provider [phone] Reason for Referral Outpatient (Routine) - Closed Specialty Diagnoses / Referred By Contact Referred To Contact Procedures Physical Medicine and Diagnoses Pain Low Back Chronic Vignesh [facility] Yarelis hendrix M.D. [address] [place] [address] Referral ID Status Reason Start Date Expiration Date Visits Requ ested Visits Authorized [id number] Closed 03/19/2018 09/15/2018 1 1 Reason for Visit Reason Comments Back Pain into hips Headache Encounter Details Date Type Department Care Team Description 03/19/2018 Office Visit Department of [facility] Zuleima araujo (Primary Dx); [place] Mcnamara Judy, Pain Low Back Chronic Clinic, in [place] [address] [place] [address] [phone] Social History Tobacco Use Types Packs/Day Years [...] or relatives? How often do you attend islam or Never 2021 temple services? Do you belong to any clubs or No 01/25/2022 organizations such as islam groups, unions, fraternal or athletic groups, or [...] Reading Time Taken Comments Blood Pressure 100/70 03/19/2018 11:00 AM CDT Pulse 80 03/19/2018 11:00 AM CDT Temperature 36.4 ??C (97.5 ??F) 03/19/2018 11:00 AM CDT Respiratory Rate - - Oxygen Saturation - - Inhaled Oxygen Concentration - - Weight 72 kg (158 lb 11.7 oz) 03/19/2018 11:00 AM CDT Height - - Body Mass Index 31.16 01/07/2018 1:08 PM PULP BEATER documented in this encounter Progress Notes Yarelis Reyes M.D. - 03/19/2018 10:45 AM CDT CHIEF COMPLAINT/ REASON FOR VISIT Vaginal irritation and back pain. HISTORY OF PRESENT ILLNESS Keily Ng is a 32 y.o. female who presents to the clinic today for vaginal irritation and back pain. She has been having difficulty with vaginal itching off an on for the last year. In March 2017 vaginitis panel was positive for yeast; in September 2017 vaginitis panel was positive for yeast and gardnerella and in December 2017 vaginitis panel as positive for gardnerella. Keily has trouble with back pain every day. Her entire back hurts. She has been having headaches every day. She has seen a local chiropractor, Dr. Martinez for adjustments with the most recent adjustment being last week. The patient denies any additional questions or concerns at this time. SYSTEMS REVIEW Please see HPI for pertinent positives, otherwise rest of ROS negative. MEDICATIONS Current Outpatient Prescriptions Medication Sig Dispense Refill ??? busPIRone (for_BUSPAR) 10 mg tablet Take 1 tablet by mouth 2 (two) times a day. ??? fluconazole (for_DIFLUCAN) 150 mg tablet TAKE ONE TABLET BY MOUTH ONCE FOR ONE DOSE (Patient nottaking: Reported on 03/19/2018 ) 1 tablet 0 ??? ibuprofen (for_ADVIL,MOTRIN) 200 mg tablet Take 800 mg by mouth daily. ??? LORazepam (for_ATIVAN) 0.5 mg tablet Take 0.5 mg by mouth 3 (three) times a day as needed for anxiety. No current facility-administered medications for this visit. [...] ??? Alcohol use Yes VITAL SIGNS Vitals: 03/19/18 1100 BP: 100/70 Patient Position: Sitting Pulse: 80 Temp: 36.4 ??C Weight: 72 kg Body mass index is 31.16 kg/m??. PHYSICAL EXAMINATION General: Patient is alert and oriented times three, in no acute distress, good hygiene and is dressed appropriately. Genitalia: External genitalia without lesions. On speculum exam, scant physiological appearing discharge is noted and sampled for vaginitis panel and chlamydia/gonorrhea screening. DIAGNOSTICS LABORATORY: Vaginitis panel and chlamydia/gonorrhea panel results: pending. ASSESSMENT / PLAN #1 Vaginitis Above labs are pending. She will be contacted with the results and with any further recommendations. #2 Chronic low back pain Will refer to Dr. Darnell Benson at the [facility] for further evaluation. Follow up The patient will contact the clinic with any new or worsening symptoms. This document serves as a record of services personally performed by Yarelis Baltazar MD. It was created on their behalf by Viky Man, a trained medical center representative. The creation of this record is based on the scribe's personal observations and the provider's statements to them. This document has been matilda cked and approved by the attending provider. documented in this encounter Plan of Treatment Upcoming Encounters Date Type Specialty Care Team Description 08/30/2022 Clinical Communication Admitting/Central Scheduling 09/02/2022 Comprehensive Visit Endocrinology Ricardo Winkler APRN, C.N.P., D.N.P. [address] [place] [address] Scheduled Referrals Name Type Priority Associated Order Schedule Diagnoses Physical Medicine and Outpatient Referral Routine Pain Low Sue k Expected: Rehabilitation - Chronic 03/19/2018 General consult (Approximate ), (clinic) Expires: 03/19/2021 documented as of this encounter Procedures Procedure Name Priority Date/Time Associated Diagnosis Comme nts CHLAMYDIA/GONORRHOE Routine 03/19/2018 12:16 PM Vaginitis R esults for this AE AMPLIFIED RNA CDT procedure a re in the results section. VAGINITIS PANEL Routine 03/19/2018 12:09 PM Vaginitis Resul ts for this CDT procedure are i n the results section. documented in this encounter Results (ABNORMAL) Chlamydia / gonorrhoeae Amplified RNA Cervix/Endocervix (03/19/2018 12:16 PM CDT) [facility] Method Time Signature Source VAGINA 03/20/2018 [facility] 4:29 PM CDT [facility] Chlamydia Indeterminate Negative 03/20/2018 [facility] trachomatis (A) 4:29 PM CDT [facility] Comment: Please recollect if clinically indicated . ----ADDITIONAL INFORMATION---- This report is intended for use in clini faviola monitoring and management of patients. It is not in tended for use in medical-legal applications. Source VAGINA 03/20/2018 4:30 PM [facility] CDT [facility] Neisseria Indeterminate (A) Negative 03/20/2018 4:30 PM [facility] gonorrhoeae CDT [facility] [place] Comment: Please recollect if clinically indicated . ----ADDITIONAL INFORMATION---- This report is intended for use in clini faviola monitoring and management of patients. It is not in tended for use in medical-legal applications. Semi-Urgent This is a semi-urgent result (CONRAD) [facility] Specimen Anatomical Collection Method Collection Time Receive d Time (Source) Location / / Volume Laterality Varies 03/19/2018 12:16 03/19/2018 (Cervix/Endocerv PM CDT 11:17 PM CD T ix) Yarelis Reyes M.D. LAB MICROBIOLOGY - GEN ERAL ORDERABLES Performing Organization Address City/State/ZIP Code Phon e Number [facility] [address] [place] [address] LAB (ABNORMAL) Vaginitis Panel Vagina (03/19/2018 12:09 PM CDT) [facility] Method Time Signature Francia Negative Negative 03/19/2018 [facility] species, DNA 2:32 PM CDT [facility] Gardnerella Positive (A) Negative 03/19/2018 [facility] vaginalis, DNA 2:32 PM CDT [facility] Trichomonas Negative Negative 03/19/2018 [facility] vaginalis, DNA 2:32 PM CDT [facility] Specimen Anatomical Collection Method Collection Time Receive d Time (Source) Location / / Volume Laterality Swab (Vagina) 03/19/2018 12:09 03/19/2018 PM CDT 12:16 PM CDT Yarelis Reyes M.D. LAB MICROBIOLOGY - GEN ERAL ORDERABLES Performing Organization Address City/State/ZIP Code Phon e Number [facility] [address] [place] [address] [facility]- [address] [place] [address] [place] [address] [place] [address] [facility] documented in this encounter Visit Diagnoses Diagnosis Vaginitis - Primary Pain Low Back Chronic documented in this encounter Additional Health Concerns Assessment Noted Time PHQ-9 Depression Total Score: 13 12/04/2017 10:[address] documented as of this encounter Care Teams Processing Inspector Relationship Specialty Start Date End Date Yarelis Reyes M.D. PCP - General 05/08/17 01/03/21 [address] [facility] [place] [address] documented as of this encounter
--- OUTSIDE RECORDS SUMMARY | 2022-08-16 21:32 | XMS_ITS | Encounter Summary ---
:1985 Author Organization [facility] Address [address] [place] [address] Care Team Providers Name Role Phone Yarelis Reyes M.D. Primary Care Provider Reason for Referral Outpatient (Routine) - Closed Specialty Diagnoses / Procedures Referred By Contact Refer red To Contact Obstetrics and Diagnoses par review Jhonny Enriquez M.D. [facility] Gynecology Procedures OBG EST VULNERABILITY RESEARCHER LONG [address] [place] [address] Referral ID Status Reason Start Date Expiration Date Visits Requ ested Visits Authorized [id number] Closed 01/05/2018 07/04/2018 1 1 OR TALENT MANAGEMENT CONSULTANT Encounter Details Date Type Department Care Team Description 01/05/2018 Orders Only Department of Obstetrics and Jhonny Enriquez M.D. Gynecology in [place], [place] [address] [place] [address] Social History Tobacco Use Types Packs/Day [...] do you attend mormon or Never 2021 buddhism services? Do you [...] Ricardo Winkler, SILVIO, C.N.P., D.N.P. [address] [place] [address] Scheduled Referrals Name Type Priority Associated Order Schedule Diagnoses Obstetrics and Outpatient Referral Routine Expect ed: Gynecology office 01/05/2018 visit (clinic) (Approximate) , Expires: 01/05/2021 documented as of this encounter Visit Diagnoses Not on filedocumented in this encounter Additional Health Concerns Assessment Noted Time PHQ-9 Depression Total Score: 13 12/04/2017 10:[address] documented as of this encounter Care Teams Personnel Worker Relationship Specialty Start Date End Date Yarelis Reyes M.D. PCP - General 05/08/17 01/03/21 [address] [place] [address] documented as of this encounter
--- OUTSIDE RECORDS SUMMARY | 2022-08-16 21:32 | XMS_ITS | Encounter Summary ---
:1985 Author Organization [facility] Address [address] [place] [address] Care Team Providers Name Role Phone Yarelis Reyes M.D. Primary Care Provider Reason for Visit Reason Comments Mouth Lesions swollen R lymph node Appointment Request (Routine) - Closed Specialty Diagnoses / Procedures Referred By Contact Refer red To Contact Family Medicine Referral ID Status Reason Start Date Expiration Date Visits Requ ested Visits Authorized [id number] Closed 12/04/2017 06/02/2018 1 1 Encounter Details Date Type Department Care Team Description 12/04/2017 Office Visit Department of [facility] Zuleima Her pes Simplex Labialis Medicine, Yarelis Bravo, (Primary Dx) Clinic, in [place] [address] [facility] [phone] Social History Tobacco Use Types Packs/Day Years [...] do you attend shinto or Never 2021 muslim services? Do you [...] Reading Time Taken Comments Blood Pressure 100/60 12/04/2017 10:19 AM CODING VALIDATOR Pulse 72 12/04/2017 10:19 AM CODING VALIDATOR Temperature 36.6 ??C (97.9 ??F) 12/04/2017 10:19 AM CODING VALIDATOR Respiratory Rate - - Oxygen Saturation - - Inhaled Oxygen Concentration - - Weight 71 kg (156 lb 8.4 oz) 12/04/2017 10:19 AM CODING VALIDATOR Height - - Body Mass Index 30.73 10/17/2017 2:33 PM CODING VALIDATOR documented in this encounter Progress Notes Yarelis Reyes M.D. - 12/04/2017 10:15 AM CST CHIEF COMPLAINT/ REASON FOR VISIT Cold sore and swollen lymph node. HISTORY OF PRESENT ILLNESS Keily Ng is a 32 y.o. female who presents to the clinic today for cold sore and swollen lymph node. She noticed a swollen and tender lymph node in her right neck yesterday. She then developeda sore throat. She has not developed any other skin rashes, cough, other illnesses. The patient denies any additional questions or concerns at this time. SYSTEMS REVIEW Please see HPI for pertinent positives, otherwise rest of ROS negative. MEDICATIONS Current Outpatient Prescriptions Medication Sig Dispense Refill ??? busPIRone (for_BUSPAR) 10 mg tablet Take 1 tablet by mouth 2 (two) times a day. ??? norelgestromin-ethinyl estradiol (ORTHO EVRA) 150-35 mcg/24 hr patch Apply 1 patch topically once a week. No current facility-administered medications for this visit. ALLERGIES No Known Allergies PAST MEDICAL / SURGICAL HISTORY Past Medical History: Diagnosis Date ??? Abuse Tobacco Smoking 06/27/2010 ??? Bipolar I Depressed (HCC) 10/22/2011 Bipolar disorder, depressed ??? Cervical Dysplasia Personal History 04/02/2010 ??? Diabetes Mellitus Gestational 01/05/2015 ??? Headache Tension Chronic 09/05/2014 ??? Pain Musculoskeletal NOS 11/18/2014 ??? Polycystic Ovary Syndrome 04/02/2010 Past Surgical History: Procedure Laterality Date ??? LAPAROSCOPIC APPENDECTOMY N/A 12/25/2012 ??? LEEP PROCEDURE - LOOP ELECTRO EXCISION PROCEDURE N/A 2006 PREVENTIVE SERVICES Social History Substance Use Topics ??? Smoking status: Former Smoker Types: Cigarettes Quit date: 2013 ??? Smokeless tobacco: Never Used ??? Alcohol use Yes VITAL SIGNS BP 100/60 Pulse 72 Temp 36.6 ??C Wt 71 kg BMI 30.73 kg/m?? PHYSICAL EXAMINATION General: Patient is alert and oriented times three, in no acute distress, good hygiene and is dressed appropriately. HEENT: Tympanic membranes are normal bilaterally. Oropharynx is without erythema or exudate. Nasal mucosa is without injection. Neck is without adenopathy. Lymph nodes: 1.5 cm mobile and tender lymph node, high in the anterior cervical chain. Heart: Regular rate and rhythm without murmur. Lungs: Clear to auscultation. Extremities: Within normal limits. Skin: She has a 1 cm cluster of a papular lesions with yellow/gold crusting on the right lower lip. ASSESSMENT / PLAN #1 Herpes Simplex Labialis With reactive cervical lymph node. I expect both of these to resolve over the next week. She will update me in 1 week and if these have not resolved, she will need to be seen again for further evaluation. Follow up The patient will contact the clinic with any new or worsening symptoms. This document serves as a record of services personally performed by Yarelis Baltazar MD. It was created on their behalf by Kenyetta Solo, a trained medical detail representative. The creation of this record is based on the scribe's personal observations and the provider's statements to them. This document has been ch ecked and approved by the attending provider. NG VALIDATOR documented in this encounter Plan of Treatment Upcoming Encounters Date Type Specialty Care Team Description 08/30/2022 Clinical Communication Admitting/Central Scheduling 09/02/2022 Comprehensive Visit Endocrinology Ricardo Winkler, SILVIO, C.N.P., D.N.P. [address] [place] [address] documented as of this encounter Visit Diagnoses Diagnosis Herpes Simplex Labialis - Primary documented in this encounter Additional Health Concerns Assessment Noted Time PHQ-9 Depression Total Score: 13 12/04/2017 10:[address] documented as of this encounter Care Teams Interactive Media Specialist Relationship Specialty Start Date End Date Yarelis Reyes M.D. PCP - General 05/08/17 01/03/21 [address] [place] [address] documented as of this encounter
--- OUTSIDE RECORDS SUMMARY | 2022-08-16 21:32 | XMS_ITS | Encounter Summary ---
:1985 Author Organization [facility] Address [address] [place] [address] Care Team Providers Name Role Phone Yarelis Reyes M.D. Primary Care Provider [phone] Encounter Details Date Type Department Care Team Description 10/06/2017 Clinical Communication Department of Jhonny Enriquez, Obstetrics and Efren Gynecology in [place], [place] [address] [place] [address] Social History Tobacco Use Types [...] do you attend tenriism or Never 2021 sabianism services? Do you [...] Telephone Encounter - Jhonny Enriquez M.D. - 10/06/2017 11:59 AM CST Rx sent to pharmacy FIELD TECHNICIAN Telephone Encounter - Jhonny Enriquez M.D. - 10/06/2017 11:59 AM CST ----- Message from Isabel Barajas sent at 10/06/2017 11:48 AM OIL FIELD TECHNICIAN ----- Regarding: Request refill of med for bacterial infection Contact: Patient states that Savita is waiting to hear back from Dr. Enriquez regarding a refill of this med. Shewould like to speak with the nurse regarding this request. FIELD TECHNICIAN documented in this encounter Plan of Treatment Upcoming Encounters Date Type Specialty Care Team Description 08/30/2022 Clinical Communication Admitting/Central Scheduling 09/02/2022 Comprehensive Visit Endocrinology Ricardo Winkler APRN, C.N.P., D.N.P. [address] [place] [address] documented as of this encounter Visit Diagnoses Not on filedocumented in this encounter Additional Health Concerns Assessment Noted Time PHQ-9 Depression Total Score: 17 08/02/2015 8:53 AM CD T documented as of this encounter Care Teams Communications Tower Technician Relationship Specialty Start Date End Date Yarelis Reyes M.D. PCP - General 05/08/17 01/03/21 [address] [address] documented as of this encounter
--- OUTSIDE RECORDS SUMMARY | 2022-08-16 21:32 | XMS_ITS | Encounter Summary ---
:1985 Author Organization [facility] Address [address] [place] [address] Care Team Providers Name Role Phone Yarelis Reyes M.D. Primary Care Provider [phone] Reason for Visit Reason Comments Communication Encounter Details Date Type Department Care Team Description 03/20/2018 Clinical Communication Department of Etienne Renee, Communication MedicineSocorro M.D. [facility], in [address] [phone] Social History Tobacco Use Types Packs/Day Years [...] do you attend baptism or Never 2021 jehovah's witness services? Do you belong to any clubs [...] Telephone Encounter - Yulisa Wahl L.P.N. - 03/23/2018 8:50 AM CDT Portal message sent. Telephone Encounter - Monica Guthrie R.N. - 03/20/2018 3:51 PM CDT Called Keily. No answer. LM to call OB Nurse line back. Telephone Encounter - Jhonny Enriquez M.D. - 03/20/2018 3:36 PM CDT I sent a prescription to the patient's pharmacy. If the patient has recurrence of symptoms that she will need to be seen in clinic. Jhonny Enriquez M.D. Telephone Encounter - Kelsea Bishop - 03/20/2018 2:57 PM CDT Pt would like a RX for Metro, she has one at the pharmacy but needs a 2nd. She also wants one of Dislucan. Patient would like a RX linn. Call [phone] with questions documented in this encounter Plan of Treatment Upcoming Encounters Date Type Specialty Care Team Description 08/30/2022 Clinical Communication Admitting/Central Scheduling 09/02/2022 Comprehensive Visit Endocrinology Ricardo Winkler APRN, C.N.P., D.N.P. [address] [place] [address] documented as of this encounter Visit Diagnoses Not on filedocumented in this encounter Additional Health Concerns Assessment Noted Time PHQ-9 Depression Total Score: 13 12/04/2017 10:[address] documented as of this encounter Care Teams Stem Teacher Relationship Specialty Start Date End Date Yarelis Reyes M.D. PCP - General 05/08/17 01/03/21 [address] [place] [address] documented as of this encounter
--- OUTSIDE RECORDS SUMMARY | 2022-08-16 21:32 | XMS_ITS | Encounter Summary ---
:1985 Author Organization [facility] Address [address] [place] [address] Care Team Providers Name Role Phone Unavailable Primary Care Provider Unavailable Encounter Details Date Type Department Care Team Description 04/07/2017 Hospital Encounter HX [facility] Narinder De La Rosa M .D. Social History Tobacco Use Types Packs/Day Years [...] do you attend restoration or Never 2021 pentecostalism services? Do you [...] Sign Reading Time Taken Comments Blood Pressure 100/68 04/07/2017 1:48 PM CDT Pulse 58 04/07/2017 1:48 PM CDT Temperature - - Respiratory Rate 18 04/07/2017 1:48 PM CDT Oxygen Saturation - - Inhaled Oxygen Concentration - - Weight 72 kg (158 lb 13.5 oz) 04/07/2017 1:48 PM CDT Height 152 cm (4' 11.84) 04/07/2017 1:48 PM CDT Body Mass Index 31.18 04/07/2017 1:48 PM CDT documented in this encounter Medications at Time of Discharge Medication Sig Dispensed Refills Start Date End Date norelgestromin-ethinyl Apply 1 patch 0 12/18/2016 01/07/2018 estradiol (ORTHO EVRA) topically once a week. 150-35 mcg/24 hr patch documented as of this encounter Progress Notes Narinder Enriquez M.D. - 04/07/2017 1:44 PM CDT [id number] CHIEF COMPLAINT/REASON FOR VISIT Acute gynecology visit. HISTORY OF PRESENT ILLNESS This patient had an appointment this morning and no-showed that. She then made an acute visit to be seen by me today. She is a 31-year-old G7, P4-0-3-4 female with LMP of 03/21/2017. The patient presents for an acute gynecology visit complaining of a suspected yeast infection. She reports that for thelast 7 days she has been having a lot of vaginal itching and irritation. She reports that her perineum and vagina is red and raw and is very irritated and uncomfortable. She caused a little bit of bleeding due to itching and scratching. The patient denies foul odor. She denies change in bowel habits. She denies difficulty urinating, dysuria, hematuria, or flank pain. She denies fevers or chills. She r eports her perineum is very red and irritated and uncomfortable. She has not tried any yfbo-rie-fgkxywn medication. She was seen and evaluated on 12/26/2016 and treated with Flagyl for suspected bacterial vaginosis. The vaginitis panel at that time returned as negative. She reports that she had similar symptoms at that time. She took Flagyl for 7 days as prescribed and her symptoms resolved until last week. On further questioning she does report a change in toilet paper and she noticed that after using that toilet paper she started having a lot of irritation and she also reports a change in the shower towel. She showered at her boyfriend's place and used his towel last week about the time that she develops symptoms. She reports that he works at a factory and is around a lot of chemicals and oils and small metal flakes which she is afraid may have gotten on the towel that she dried off with. ALLERGIES No known drug allergies. MEDICATIONS 1. Ortho Evra patch. 2. Diflucan, new prescription given today. PAST MEDICAL/SURGICAL HISTORY PAST MEDICAL HISTORY: 1. Gestational diabetes. 2. Former tobacco user quit 2013. 3. History of depression. 4. History of bipolar disorder. 5. History of polycystic ovarian syndrome. 6. History of cervical dysplasia 2005. PAST SURGICAL HISTORY: 1. Laparoscopic appendectomy 2012. 2. LEEP procedure 2005. PAST OBSTETRICAL HISTORY: 1. #Vaginal delivery x4. 2. Miscarriage x3. SOCIAL HISTORY Patient is in a stable, monogamous relationship. She quit smoking in 2013. No alcohol or drug use. No history of STD or PID. She reports normal Pap smears since her LEEP procedure in 2005. VITAL SIGNS Weight 72.0 kg, height 152 cm. Pulse 58, respiration 18, blood pressure 100/68. PHYSICAL EXAMINATION GENERAL: Well-developed, well-nourished female in mild distress secondary vaginal itching and irritation. ABDOMEN: Soft, nontender, nondistended. Positive bowel sounds. No hepatomegaly. No rebound. No guarding. GENITALIA: External female genitalia with erythema throughout the perineum, labia, and mons. The patient has thick white vaginal discharge on the external female genitalia as well as the vaginal mucosaconsistent with candidiasis. The patient has small little skin cracks and fissures in the labial folds and on the mons consistent with candidiasis. Vaginal mucosa with thick white vaginal discharge consistent with candidiasis. No lesions noted. Normal multiparous cervical os without lesions. No cervical motion tenderness. No foul odor. EXTREMITIES: No clubbing, cyanosis, or edema. Nontender bilaterally. RECTAL: Declined. No hemorrhoids noted. DIAGNOSTICS Lab 12/26/2016 vaginitis panel negative. Lab 04/07/2017 vaginitis panel obtained, results are pending. IMPRESSION/REPORT/PLAN Suspect vaginal candidiasis based on physical examination findings and symptoms. PLAN: 1. Vaginitis panel is obtained. Results are pending. 2. Based on the patient's symptoms and examination today I believe she has vaginal candidiasis. I amgoing to give the patient a prescription for Diflucan 150 mg by mouth x1 to be repeated in 3 days. Idiscussed the use of this medication. I discussed side effects with the patient. 3. I would also like the patient to use pbhu-qec-psmewpe Monistat ointment on her labia and perineumto help soothe and relieve some of her symptoms. 4. Perineal hygiene discussed with patient. 5. I recommend the patient wear cotton underwear. 6. I recommend the patient return to using unscented basic toilet paper that she previously was using and not continue to use the new toilet paper. 7. I recommend the patient also stopped using the new bath towels that she believes might be coveredin machine oil and lubricants. 8. I would like the patient follow up with her primary provider for adult preventive services and asneeded. 9. I would be happy to see the patient on an as needed basis. Narinder Enriquez M.D./cristiano Electronically Signed By: NARINDER ENRIQUEZ MD On: 04/09/2017 10:51 AM Source: [facility] MHSDOLBEYNONRADSYS Document Id: [id number] documented in this encounter Miscellaneous Notes Telephone Encounter - Conversion, Historical Provider Ser - 08/07/2017 4:00 PM CDT *Phone Message Document Contains Addenda Addendum by DELFIN NIX on August 08, 2017 12:10:07 CDT From: DELFIN NIX ([facility] Supervisor Microbiology Technologists) To: Obstetrics/Gynecology Nurse; Sent: 08/08/2017 12:10:07 CDT Subject: RE: *Phone Message Patient is scheduled for today with Dr Enriquez. Addendum by SNOW PÉREZ RN on August 08, 2017 08:48:29 CDT From: SNOW PÉREZ RN ( Obstetrics/Gynecology Nurse) To: [facility] Supervisor Microbiology Technologists; Sent: 08/08/2017 08:48:29 CDT Subject: FW: *Phone Message Could you please call her and get her scheduled with Dr. Enriquez for today? Addendum by NARINDER ENRIQUEZ MD on August 08, 2017 08:46:45 CDT From: NARINDER ENRIQUEZ MD To: Obstetrics/Gynecology Nurse; Sent: 08/08/2017 08:46:45 CDT Subject: RE: *Phone Message The patient should be seen. She is welcome to see me or her primary provider or urgent care for her symptoms. Addendum by SNOW PÉREZ RN on August 08, 2017 08:32:28 CDT From: SNOW PÉREZ RN ( Obstetrics/Gynecology Nurse) To: NARINDER ENRIQUEZ MD; Sent: 08/08/2017 08:32:28 CDT Subject: FW: *Phone Message Addendum by SNOW PÉREZ RN on August 08, 2017 08:32:15 CDT Spoke with Keily. States that she has already tried Monistat. She says the symptoms improved slightly but she is still very uncomfortable. She is not sure whether it is BV or a yeast infection at this time. She is on cycle day 2. Would you like to see her? Addendum by NARINDER ENRIQUEZ MD on August 07, 2017 16:58:28 CDT From: NARINDER ENRIQUEZ MD To: Obstetrics/Gynecology Nurse; Sent: 08/07/2017 16:58:28 CDT Subject: RE: *Phone Message she can use OTC Clotriamzole and if her sx do not resolve then she should be seen in clinic. She is also welcome to see her PCM or urgent care clinic Addendum by CHRISTIANO ALVARADO LPN on August 07, 2017 16:16:45 CDT From: CHRISTIANO ALVARADO LPN ( Obstetrics/Gynecology Nurse) To: NARINDER ENRIQUEZ MD; Sent: 08/07/2017 16:16:45 CDT Subject: FW: *Phone Message From: RAYMOND NAVARRO ( [facility] Supervisor Microbiology Technologists) To: Obstetrics/Gynecology Nurse; Sent: 08/07/2017 16:00:59 CDT Subject: *Phone Message Caller is: ( ) Patient ( ) Mother ( ) Father ( ) Spouse ( ) Daughter ( ) Son ( ) Pharmacy ( ) Other: Physician: Patient MRN #: Reason for Call: S: Patient called B: Patient called in with [facility] nurse line. Patient es experiencing symptoms of a yeast infection. She stated that she has seen Dr. Enriquez in the past for this. She is wondering if something could be prescribed or if she would have to be seen. A: R: Please call her back at #[phone] Message: Advice/Action: Source used: ( ) Verbalizes understanding of instructions ( ) Instructed to call back if symptoms worsen or do not resolve ( ) Refused to see provider ( ) Appointment Scheduled ( ) OK to leave message on voice mail ( ) Patient told to expect return call: ( ) today ( ) tomorrow ( ) next work day ( ) Patient's email ( ) Patient told physician out of office, will call upon return call on ( ) ( ) Patient told physician out of office, routed to other physician ( ) Other ( ) Call back telephone number ( ) Call back cell phone number ( ) Source: [facility] POWERCHART Document Id: [id number] Miscellaneous - Narinder Enriquez M.D. - 04/07/2017 5:17 PM CDT Custom Result Letter April 07, 2017 KEILY NG [address] [facility] [id number] Dear KEILY NG, I am writing to report that your results from the following diagnostic test(s) are back. Your test came back showing both bacterial and yeast infection. I sent a prescription for both an antibiotic and antifungal medication to your pharmamcy. Please follow up with us as we discussed during your visit or sooner if you have any concerns. If you have questions or concerns, please do not hesitate to call our office. Result Name Current Result Previous Result Vaginosis Panel, DNA POS 04/07/2017 12/26/2016 Sincerely, NARINDER ENRIQUEZ [address] [facility] [address] [place] [address] Electronic Signature Electronically Signed By: NARINDER ENRIQUEZ MD On: April 07, 2017 This document has images extracted. Source: [facility] POWERCHART Document Id: [id number] Electronically signed by Wendi [facility] Musculoskeletal Physiotherapist [id number] at 05/06/2017 4:11 AM CDT Miscellaneous - Narinder Enriquez M.D. - 04/07/2017 2:11 PM CDT Ambulatory Patient Summary [facility] [address] [place], [place] [id number] Visit Information Name: KEILY NG [facility] Number: [id number] Current Date: 04/07/2017 14:11:01 Physicians Attending Provider: NARINDER ENRIQUEZ MD Primary Care Provider: KAREN FUENTES MD KEILY [...] every 6 hours as needed for wheezing fluconazole (Diflucan 150 mg oral tablet) 1 Tablet(s), Oral, 2 times a week This is a CHANGE Routed to [address] [address] norelgestromin-ethinyl estradiol (Ortho Evra 150 mcg-35 mcg/24 hr transdermal film, extended release) 1 patch(es), Topical, every week Apply one patch each week for 3 weeks (21 total days); followed byone week that is patch-free. Stop Taking the Following Medications: Medication list as of 04-07-17 14:11 Attention: If you have any medications at home that are not on this list, DO NOT take them until youcontact your provider for clarification. Give a copy of your medication list to your primary care provider. Update your medication list any time medications or doses are changed and carry your medication list at all times in case of emergency. Electronically Signed By: NARINDER ENRIQUEZ MD Signed On:07-APR-2017 14:10:59 Your Allergies & Intolerances Substance Reaction Symptoms [...] if you dont have one. Go to [email or web address] and click on Create Your Account. Then, follow the directions to complete the online form. Youll be asked for your [facility] number which you can find at the top of this document. Your Goals/Additional instructions: Source: [facility] POWERCHART Document Id: [id number] Miscellaneous - Narinder Enriquez M.D. - 04/07/2017 2:11 PM CDT Ambulatory Discharge Medication List [address] [id number] Visit Information Name: KEILY NG [facility] Number: [id number] Current Date: 04/07/2017 14:11:01 Attending Provider: NARINDER ENRIQUEZ MD Primary Care Provider: KAREN FUENTES MD KEILY [...] every 6 hours as needed for wheezing fluconazole (Diflucan 150 mg oral tablet) 1 Tablet(s), Oral, 2 times a week This is a CHANGE Routed to [address] [address] norelgestromin-ethinyl estradiol (Ortho Evra 150 mcg-35 mcg/24 hr transdermal film, extended release) 1 patch(es), Topical, every week Apply one patch each week for 3 weeks (21 total days); followed byone week that is patch-free. Stop Taking the Following Medications: Medication list as of 04-07-17 14:11 Attention: If you have any medications at home that are not on this list, DO NOT take them until youcontact your provider for clarification. Give a copy of your medication list to your primary care provider. Update your medication list any time medications or doses are changed and carry your medication list at all times in case of emergency. Electronically Signed By: NARINDER ENRIQUEZ MD Signed On:07-APR-2017 14:10:59 Additional Information: Source: [facility] BuedaCHART Document Id: [id number] Kyleigh Heath C.M.A. - 04/07/2017 2:06 PM CDT Assistant Toddler Teacher Documentation Assistant Toddler Teacher Documentation Entered On: 04/07/2017 14:06 CDT Performed On: 04/07/2017 14:06 CDT by KYLEIGH RAMIREZ CMA Assistant Toddler Teacher Documentation Exam/Procedure Performed : Vag. Panel CD Assistant Toddler Teacher Present : Yes CD Assistant Toddler Teacher Name : Kyleigh Ramirez CMA Present in Room During Exam/Procedure : Alone KYLEIGH RAMIREZ CMA - 04/07/2017 14:06 CDT Source: [facility] BioTime Document Id: [id number] CDT!6 Kyleigh Heath C.M.A. - 04/07/2017 1:48 PM CDT Adult Division Operations Manager Intake/History Adult Division Operations Manager Intake/History Entered On: 04/07/2017 13:51 CDT Performed On: 04/07/2017 13:48 CDT by KYLEIGH RAMIREZ CMA Intake Chief Complaint : Yeast infection- Symptoms once or twice a month now, Tried Monistat that didn't help any LMP Date : 03/21/2017 Peripheral Pulse Rate : 58 /min (LOW) Respiratory Rate : 18 /min Heart Rhythm : Regular Systolic Blood Pressure : 100 mmHg Diastolic Blood Pressure : 68 mmHg NIBP Mean : 79 mmHg BP Location : Right upper extremity Blood Pressure Cuff Size : Regular Height : 152 cm(Converted to: 5 ft 0 inch(es), 60 inch(es)) Actual Weight : 72.05 kg(Converted to: 158 lb 13 oz) Dosing Weight Clinic : 72.05 kg Clinic BSA : 1.74 Body Mass Index : 31.19 kg/m2 KYLEIGH RAMIREZ CMA - 04/07/2017 13:48 CDT General Info Information Given By : Patient Preferred Communication Mode : Verbal Languages : Nicaraguan Is Patient Female and 13-50 no hysterectomy : Yes Status : Patient denies Are you ? : No ASHLEYMALA ERICKSONLam Ritter [facility] 04/07/2017 13:48 CDT Subjective Pain Symptoms : No KYLEIGH RAMIREZ [facility] - 04/07/2017 13:48 CDT Dependent Habits Exposure to Tobacco Smoke : Other: former. Quit 06/2014 Smoking Status : Former smoker Tobacco 2A : Yes Tobacco Use/Currently Using : No Tobacco Use/Last 30 Days : No Tobacco Use/Last 12 months : No KYLEIGH RAMIREZ [facility] - 04/07/2017 13:48 CDT Caffeine Use Grid Caffeine Use : None MALA RAMIREZLam Ritter [facility] 04/07/2017 13:48 CDT Recreational Drug Use Grid Drug Use : None MALA RAMIREZL Riya [facility] 04/07/2017 13:48 CDT Source: [facility] BioTime Document Id: [id number] CDT!39 documented in this encounter Plan of Treatment Upcoming Encounters Date Type Specialty Care Team Description 08/30/2022 Clinical Communication Admitting/Central Scheduling 09/02/2022 Comprehensive Visit Endocrinology Ricardo Winkler APRN, C.N.P., D.N.P. [address] [place] [address] documented as of this encounter Procedures Procedure Name Priority Date/Time Associated Diagnosis Comme nts VAGINITIS BATTERY, Routine 04/07/2017 2:03 PM Res ults for this DNA (GENITAL) CDT procedure are in the results section. documented in this encounter Results (ABNORMAL) VAGINITIS BATTERY, DNA (GENITAL) (04/07/2017 2:03 PM CDT) Component Value Ref Test Analysis Performed At [facility] Range Method Time Signature HXVaginitis (POSITIVE) POWERCHART Battery, DNA (Genital) HXFinal Trichomonas POWERCHART vaginalis DNA negative HXFinal Gardnerella POWERCHART vaginalis DNA positive HXFinal Francia species POWERCHART DNA positive HXFinal Reference: POWERCHART Negative Specimen (Source) Anatomical Collection Method Collection Time Re ceived Time Location / / Volume Laterality Vagina 04/07/2017 2:03 PM CDT Narinder Enriquez M.D. LAB HISTORICAL ORDERS Performing Organization Address City/State/ZIP Code Phon e Number POWERCHART documented in this encounter Visit Diagnoses Not on filedocumented in this encounter Additional Health Concerns Assessment Noted Time PHQ-9 Depression Total Score: 17 08/02/2015 8:53 AM CD T documented as of this encounter
--- OUTSIDE RECORDS SUMMARY | 2022-08-16 21:32 | XMS_ITS | Encounter Summary ---
:1985 Author Organization [facility] Address [address] [place] [address] Care Team Providers Name Role Phone Yarelis Reyes M.D. Primary Care Provider [phone] Reason for Visit Reason Comments Communication Encounter Details Date Type Department Care Team Description 03/20/2018 Clinical Communication Department of Internal Spencer Enriquez, Communication Medicine in [place] [address] [place] [phone] Social History Tobacco Use Types Packs/Day Years [...] do you attend taoist or Never 2021 quaker services? Do you [...] Ricardo Winkler, SILVIO, C.N.P., D.N.P. [address] [place] [address] documented as of this encounter Visit Diagnoses Not on filedocumented in this encounter Additional Health Concerns Assessment Noted Time PHQ-9 Depression Total Score: 13 12/04/2017 10:[address] documented as of this encounter Care Teams Boot Lace Cutter Machine Relationship Specialty Start Date End Date Yarelis Reyes M.D. PCP - General 05/08/17 01/03/21 [address] [place] [address] documented as of this encounter
--- OUTSIDE RECORDS SUMMARY | 2022-08-16 21:32 | XMS_ITS | Encounter Summary ---
:1985 Author Organization [facility] Address [address] [place] [address] Care Team Providers Name Role Phone Karen Reyes M.D. Primary Care Provider [phone] Encounter Details Date Type Department Care Team Description 08/08/2017 Hospital Encounter HX [facility] Narinder D eLa Rosa M .D. Social History Tobacco Use [...] do you attend restoration or Never 2021 tenriism services? Do you [...] Sign Reading Time Taken Comments Blood Pressure 106/50 08/08/2017 2:18 PM CDT Pulse 72 08/08/2017 2:18 PM CDT Temperature - - Respiratory Rate 16 08/08/2017 2:18 PM CDT Oxygen Saturation - - Inhaled Oxygen Concentration - - Weight 72.8 kg (160 lb 7.9 oz) 08/08/2017 2:18 PM CDT Height 152 cm (4' 11.84) 08/08/2017 2:18 PM CDT Body Mass Index 31.51 08/08/2017 2:18 PM CDT documented in this encounter Medications at Time of Discharge Medication Sig Dispensed Refills Start Date End Date busPIRone (for_BUSPAR) 10 Take 1 tablet by 0 03/2605/12/2018 mg tablet mouth 2 (two) times a day. metroNIDAZOLE (FLAGYL) Take 1 tablet by 0 017 10/06/2017 500 mg tablet mouth 2 (two) times a day. norelgestromin-ethinyl Apply 1 patch 0 12/18/2016 01/07/2018 estradiol (ORTHO EVRA) topically once a 150-35 mcg/24 hr patch week. documented as of this encounter Progress Notes Narinder Enriquez M.D. - 08/08/2017 2:11 PM CDT [id number] CHIEF COMPLAINT/REASON FOR VISIT Vaginal itching and irritation. HISTORY OF PRESENT ILLNESS This patient is a 31-year-old, G7, P4-0-3-4 female with LMP of 08/06/2017. The patient presents for an acute visit complaining of a suspected yeast infection. The patient reports that for the last 5 days she has had vaginal itching, irritation, and burning. She has had a discharge that is more of a clear and hernandez discharge with malodor. The patient took Monistat [id number] earlier this week with no relief in her symptoms. The patient just started her menses 2 days ago. She reports her menses is normal, light flow. She denies pain, cramping, tenderness or discomfort. No difficulty urinating. No change in bowel habits. The patient had similar symptoms in both December and March of this year. She was found to have bacterial vaginosis and treated with Flagyl both times with resolution of her symptoms. ALLERGIES No known drug allergies. MEDICATIONS 1. Ortho Evra patch. 2. BuSpar. 3. Flagyl, new prescription given today. PAST MEDICAL/SURGICAL HISTORY PAST MEDICAL HISTORY: 1. Gestational diabetes. 2. Former tobacco user, quit 2013. 3. Depression. 4. History of bipolar disorder. 5. History of polycystic ovarian syndrome. 6. History of cervical dysplasia 2005. PAST SURGICAL HISTORY: 1. Laparoscopic appendectomy 2012. 2. LEEP procedure 2005. PAST OBSTETRICAL HISTORY: 1. Vaginal delivery x4. 2. Miscarriage x3. SOCIAL HISTORY The patient is in a stable, monogamous relationship. She quit smoking in 2013. No alcohol or drug use. No history of STD or PID. She reports all her Pap smears have been normal since her LEEP [id number]. VITAL SIGNS Weight 72.8 kg, height 152 cm, pulse 72, respirations 16, blood pressure 106/50. PHYSICAL EXAMINATION GENERAL: Well-developed, well-nourished female in no apparent distress. Alert and oriented x3. ABDOMEN: Soft, nontender, nondistended. Positive bowel sounds. No hepatosplenomegaly. No rebound. Noguarding. GENITALIA: External female genitalia with erythema in the perineum, labia and mons. The patient has light menses blood flow. There is also a discolored vaginal discharge with an amine odor. No vaginal lesions are noted. Normal multiparous cervical os with light menses blood flow and no lesions. Bimanual exam declined by patient. EXTREMITIES: No clubbing, cyanosis, or edema. Nontender bilaterally. IMPRESSION/REPORT/PLAN Suspect bacterial vaginosis based on physical examination and symptoms. PLAN: 1. I discussed checking a vaginitis panel but as the patient is still on her menses I discussed withpatient that this will not be as reliable. 2. There is no evidence of this being a vulvovaginal candidiasis based on examination and symptoms. It appears that she has recurrent bacterial vaginosis. 3. I did give the patient a prescription for Flagyl 500 mg by mouth 2 times per day x7 days, #14 pills. I discussed use of this medication with the patient. 4. Perineal hygiene is discussed with the patient. 5. I recommend the patient wear cotton underwear. 6. I recommend the patient follow up with her primary provider for adult preventive services and as needed. 7. I will be happy to see the patient on an as needed basis. Narinder Enriquez M.D./cristiano Electronically Signed By: NARINDER ENRIQUEZ MD On: 08/08/2017 03:50 PM Source: [facility] MHSDOLBEYNONRADSYS Document Id: [id number] documented in this encounter Miscellaneous Notes Miscellaneous - Narinder Enriquez M.D. - 08/08/2017 2:38 PM CDT Ambulatory Patient Summary [address] [id number] Visit Information Name: KEILY NG [facility] Number: [id number] Current Date: 08/08/2017 14:37:59 Physicians Attending Provider: NARINDER ENRIQUEZ MD Primary [...] 1 Tablet(s), Oral, two times a day metroNIDAZOLE (Flagyl 500 mg oral tablet) 1 Tablet(s), Oral, two times a day x 7 day(s) [facility] [place] [address] norelgestromin-ethinyl estradiol (Ortho Evra 150 mcg-35 mcg/24 hr transdermal film, extended release) 1 patch(es), Topical, every week Apply one patch each week for 3 weeks (21 total days); followed byone week that is patch-free. Stop Taking the Following Medications: fluconazole (Diflucan 150 mg oral tablet) Medication list as of 08-08-17 14:37 Attention: If you have any medications at [...] Electronically Signed By: NARINDER ENRIQUEZ MD Signed On:08-AUG-2017 14:37:57 Your Allergies & Intolerances Substance Reaction Symptoms [...] if you dont have one. Go to [email or web address] and click on Create Your Account. Then, follow the directions to complete the online form. Youll be asked for your [facility] number which you can find at the top of this document. Your Goals/Additional instructions: Source: [facility] POWERCHART Document Id: [id number] Miscellaneous - Narinder Enriquez M.D. - 08/08/2017 2:37 PM CDT Ambulatory Discharge Medication List [facility] [address] [place], [place] [id number] Visit Information Name: KEILY NG [facility] Number: [id number] Current Date: 08/08/2017 14:37:58 Attending Provider: NARINDER ENRIQUEZ MD Primary Care [...] 1 Tablet(s), Oral, two times a day metroNIDAZOLE (Flagyl 500 mg oral tablet) 1 Tablet(s), Oral, two times a day x 7 day(s) New Routed to [address] [address] norelgestromin-ethinyl estradiol (Ortho Evra 150 mcg-35 mcg/24 hr transdermal film, extended release) 1 patch(es), Topical, every week Apply one patch each week for 3 weeks (21 total days); followed byone week that is patch-free. Stop Taking the Following Medications: fluconazole (Diflucan 150 mg oral tablet) Medication list as of 08-08-17 14:37 Attention: If you have any medications at [...] Electronically Signed By: NARINDER ENRIQUEZ MD Signed On:08-AUG-2017 14:37:57 Additional Information: Source: [facility] [place] Document Id: [id number] Miscellaneous - Edel Chopra LAmarisP.N. - 08/08/2017 2:31 PM CDT Mechanical Expert Documentation Mechanical Expert Documentation Entered On: 08/08/2017 14:32 CDT Performed On: 08/08/2017 14:31 CDT by EDEL CHOPRA LPN Mechanical Expert Documentation Exam/Procedure Performed : pelvic exam CD Mechanical Expert Present : Yes CD Mechanical Expert Name : Edel Chopra LPN Present in Room During Exam/Procedure : Alone EDEL CHOPRA LPN - 08/08/2017 14:31 CDT Source: [facility] [place] Document Id: [id number] CDT!6 Miscellaneous - Edel Chopra L.P.N. - 08/08/2017 2:18 PM CDT Adult Conservation Educator Intake/History Adult Conservation Educator Intake/History Entered On: 08/08/2017 14:20 CDT Performed On: 08/08/2017 14:18 CDT by EDEL CHOPRA LPN Intake Chief Complaint : per Dr. Enriquez Peripheral Pulse Rate : 72 /min Respiratory Rate : 16 /min Heart Rhythm : Regular Systolic Blood Pressure : 106 mmHg Diastolic Blood Pressure : 50 mmHg (LOW) NIBP Mean : 69 mmHg BP Location : Right upper extremity Blood Pressure Cuff Size : Regular Height : 152 cm(Converted to: 5 ft 0 inch(es), 60 inch(es)) Actual Weight : 72.8 kg(Converted to: 160 lb 8 oz) Weight Source : Standing scale Dosing Weight Clinic : 72.8 kg Clinic BSA : 1.75 Body Mass Index : 31.51 kg/m2 EDEL CHOPRA LPN - 08/08/2017 14:18 CDT General Info Information Given By : Patient Preferred Communication Mode : Verbal, Written Languages : Malawian Is Patient Female and 13-50 no hysterectomy : Yes Status : Patient denies Are you ? : No EDEL CHOPRA [facility] - 08/08/2017 14:18 CDT Subjective Pain Symptoms : No EDEL CHOPRA GLUE SIZE MACHINE OPERATOR - 08/08/2017 14:18 CDT Dependent Habits Exposure to Tobacco Smoke : Other: former. Quit 06/2014 Smoking Status : Former smoker Tobacco 2A : Yes Tobacco Use/Currently Using : No Tobacco Use/Last 30 Days : No Tobacco Use/Last 12 months : No Tobacco Last Use/Month : June Tobacco Last Use/Year : 2013 EDEL CHOPRA [facility] - 08/08/2017 14:18 CDT Caffeine Use Grid Caffeine Use : None BRIANDOMINIQUELEAHEDEL John GLUE SIZE MACHINE OPERATOR - 08/08/2017 14:18 CDT Recreational Drug Use Grid Drug Use : None BRIANDOMINIQUEEDEL [facility] - 08/08/2017 14:18 CDT Source: [employer] Document Id: [id number] CDT!41 documented in this encounter Plan of Treatment Upcoming Encounters Date Type Specialty Care Team Description 08/30/2022 Clinical Communication Admitting/Central Scheduling 09/02/2022 Comprehensive Visit Endocrinology Ricardo Winkler APRN, C.N.P., D.N.P. [address] [place] [address] documented as of this encounter Visit Diagnoses Not on filedocumented in this encounter Additional Health Concerns Assessment Noted Time PHQ-9 Depression Total Score: 08/02/2015 8:53 AM CD T documented as of this encounter Care Teams Night Shift Manager Relationship Specialty Start Date End Date Karen Reyes M.D. PCP - General 05/08/17 01/03/21 [address] [place] [address] documented as of this encounter
--- OUTSIDE RECORDS SUMMARY | 2022-08-16 21:33 | XMS_ITS | Encounter Summary ---
:1985 [facility] Address [address] [place] [address] Care Team Providers Name Role Phone Unavailable Primary Care Provider Unavailable Encounter Details Date Type Department Care Team Description 02/02/2015 Hospital Encounter HX [facility] Narinder De La Rosa M .D. Social History Tobacco Use Types Packs/Day Years Used Date Smoking Tobacco: Never Assessed Alcohol Habits Answer Date Recorded How often [...] do you attend shinto or Never 2021 sikh services? Do you [...] Sign Reading Time Taken Comments Blood Pressure 92/64 02/02/2015 2:06 PM CDT Pulse - - Temperature - - Respiratory Rate - - Oxygen Saturation - - Inhaled Oxygen Concentration - - Weight 76 kg (167 lb 8.8 oz) 02/02/2015 2:06 PM CDT Height 152 cm (4' 11.84) 02/02/2015 2:06 PM CDT Body Mass Index 32.89 02/02/2015 2:06 PM CDT documented in this encounter Progress Notes Narinder Enriquez M.D. - 02/02/2015 2:03 PM CDT [id number] CHIEF COMPLAINT/REASON FOR VISIT OB. HISTORY OF PRESENT ILLNESS This patient is a 29-year-old, G6, P3-0-2-3 female with LMP of 05/18/2014 and EDC of 02/22/2015 at 37 and 2/7 weeks. Patient presents for OB visit. She is doing well. She has a complicated bygestational diabetes. She has a migraine headaches versus tension headaches. She has history of depression, but is currently off medication. She has a history of PCOS, but is currently asymptomatic. She is a former smoker and quit smoking in 2013. Patient is doing well. She reports good movement. She denies vaginal bleeding or leaking of fluid. She continues to have irregular uterine contractions that are worse in the afternoon and early evening. These improve with rest. No pelvic pressure. No headaches or vision changes. No depression sym ptoms. No fevers or chills. Her musculoskeletal pain and rib pain on the right has resolved. The patient has gestational diabetes. She is following ADA diet. She forgot to bring in her blood sugars for my review. She reports that her blood sugars are looking good. ALLERGIES No known drug allergies. MEDICATIONS 1. Generic vitamins. 2. Tylenol No. 3 as needed. 3. Lidocaine topical gel as needed. PAST MEDICAL/SURGICAL HISTORY PAST MEDICAL HISTORY: 1. Right rib musculoskeletal pain and discomfort, now asymptomatic. 2. History of tobacco abuse. Quit smoking in 2013. 3. History of depression and bipolar disorder. 4. History of cervical dysplasia in 2005. 5. History of polycystic ovarian syndrome. PAST SURGICAL HISTORY: 1. Laparoscopic appendectomy, 2012. 2. LEEP procedure in 2005. PAST SURGICAL HISTORY: 1. Vaginal delivery, 02/10/2002. 2. Vaginal delivery, 08/16/2008. 3. Vaginal delivery, 11/06/2010. 4. Miscarriage 200,5. 5. Miscarriage, 2006. VITAL SIGNS Weight 76.0 kg, height 152 cm, blood pressure 92/64, pulse 72. PHYSICAL EXAMINATION GENERAL: Well-developed, well-nourished, gravid female in no apparent distress. Alert and oriented x3. ABDOMEN: Soft, gravid, nontender. Positive bowel sounds. Fundal height 37 cm. Positive heart tones at 142 beats per minute. Vertex presentation by Ky's. EXTREMITIES: No clubbing, cyanosis, or edema. Nontender bilaterally. GENITALIA: Cervix is 2 cm dilated, 1 cm thick, 0 station. Cephalic presentation confirmed. DIAGNOSTICS 01/26/2015, GBS culture negative. IMPRESSION/REPORT/PLAN 1. Intrauterine at 37 and 3/7 weeks. Positive cardiac activity. 2. Gestational diabetes, on [place] [employer] diet. 3. History of depression, currently asymptomatic. PLAN: 1. I reviewed GBS culture results with patient with negative findings. 2. I would like the patient follow up in 1 week for obstetrics visit or be seen sooner as needed. 3. Routine obstetrics precautions, recommendations, instructions are reviewed with patient includingfetal movement and kick counts. 4. Labor precautions are reviewed with patient. 5. I discussed the importance of good blood sugar control in . I encouraged patient follow [place] [employer] diet in . I would like the patient to check her blood sugars fasting and 2-hour postprandial and bring these in for my review at the next visit. 6. If the patient does not want to spontaneous labor, I recommend that we proceed with induction labor at 39 weeks due to gestational diabetes. Patient verbalizes understanding. 7. I spent 25 minutes nugk-aa-iwik time with the patient with over 50% of that time spent in counseling. Narinder Enriquez M.D./cristiano Electronically Signed By: NARINDER ENRIQUEZ MD On: 02/03/2015 08:13 AM [facility] Document Id: [id number] documented in this encounter Miscellaneous Notes Miscellaneous - Narinder Enriquez M.D. - 02/02/2015 2:21 PM CDT Ambulatory Patient Summary [address] [id number] [facility] Number: [id number] Current Date: 02/02/2015 14:21:13 Physicians Attending Provider: NARINDER ENRIQUEZ MD Primary Care Provider: KAREN FUENTES MD SAMUEL NG has been given the following list [...] Take Indications/Special Instructions/Comments/Notes for Patient Medication Changes/Routing multivitamin, ( Multivitamins with Folic Acid 1 mg oral capsule) 1 cap, Oral, once a day Stop Taking the Following Medications: Medication list as of 02-02-15 14:21 Attention: If you have any medications at [...] Electronically Signed By: NARINDER ENRIQUEZ MD Signed On:02-FEB-2015 14:21:09 Your Allergies & Intolerances Substance Reaction Symptoms Category Comments No Known Allergies Drug Your Problem List Problem Status Onset Comments Tobacco Use Disorder Active 04/02/2010 Bipolar disorder, depressed Active Polycystic ovarian disease Active Personal History of Cervical Dysplasia Active 10/03/2006 Depressive disorder, major, recurrent episode Active Normal Preg Not First 1st Preg Active 06/29/2014 Headache (PAGAN) Tension Chronic Active Pain Musculoskeletal Active Diabetes Mellitus Gestational Preg Antepartum Active Your Upcoming Appointments Date Time Location Provider 02/07/2015 14:30 [facility] CHIEF JUVENILE PROBATION OFFICER Narinder Enriquez MD 02/16/2015 14:30 [facility] CHIEF JUVENILE PROBATION OFFICER Narinder Enriquez MD Attention: Contact your local Clinic if further appointment detail needed. Your Goals/Additional instructions: Source: [facility] [place] Document Id: [id number] Nikhil - Narinder Enriquez M.D. - 02/02/2015 2:21 PM CDT Ambulatory Discharge Medication List [address] [id number] Visit Information [facility]: [facility] Number: [id number] Visit Date: 02/02/2015 14:21:12 Attending Provider: NARINDER ENRIQUEZ MD Primary Care Provider: KAREN FUENTES MD [facility] has been given the following list of medications: Your Medications It is important to take your medications as directed. Use a pill box or chart to help remind you to take your medications. Please let your doctor or nurse know if you have problems taking your medications. Medication/Strength How to Take Indications/Special Instructions/Comments/Notes for Patient Medication Changes/Routing multivitamin, ( Multivitamins with Folic Acid 1 mg oral capsule) 1 cap, Oral, once a day Stop Taking the Following Medications: Medication list as of 02-02-15 14:21 Attention: If you have any medications at [...] Electronically Signed By: NARINDER ENRIQUEZ MD Signed On:02-FEB-2015 14:21:09 Additional Information: Source: [facility] [place] Document Id: [id number] Miscellaneous - Susana Morgan L.P.N. - 02/02/2015 2:06 PM CDT Adult Clay Thrower Intake/History Adult Clay Thrower Intake/History Entered On: 02/02/2015 14:08 CDT Performed On: 02/02/2015 14:06 CDT by SUSANA MORGAN LPN Intake Chief Complaint : Ob visit 37 2/7 weeks LMP Date : 05/18/14 Systolic Blood Pressure : 92 mmHg Diastolic Blood Pressure : 64 mmHg NIBP Mean : 73 mmHg BP Location : Right upper extremity Blood Pressure Cuff Size : Regular Height : 152 cm(Converted to: 5 ft 0 inch(es), 60 inch(es)) Actual Weight : 76.0 kg(Converted to: 167 lb 9 oz) Weight Source : Standing scale Dosing Weight Clinic : 76 kg Clinic BSA : 1.79 Body Mass Index : 32.89 kg/m2 SUSANA MORGAN LPN - 02/02/2015 14:06 CDT General Info Information Given By : Patient Languages : Peruvian Is Patient Female and 13-50 no hysterectomy : Yes Status : Confirmed positive Are you ? : No SUSANA MORGAN LPN - 02/02/2015 14:06 CDT Subjective Pain Symptoms : No SUSANA MORGAN LPN - 02/02/2015 14:06 CDT Dependent Habits Tobacco Use/Currently Using : Yes Exposure to Tobacco Smoke : Patient smokes Smoking Status : Current every day smoker SUSANA MORGAN LPN - 02/02/2015 14:06 CDT Tobacco Use Grid Type : Cigarettes Last Use : 07/07 SUSANA MORGAN LPN - 02/02/2015 14:06 CDT Caffeine Use Grid Caffeine Use : None SUSANA MORGAN LPN - 02/02/2015 14:06 CDT Recreational Drug Use Grid Drug Use : None SUSANA MORGAN LPN - 02/02/2015 14:06 CDT ID Screen Drug Resistant Organism : No Travel Within Last 21 Days : No Contact with someone with Ebola : No SUSANA MORGAN LPN - 02/02/2015 14:06 CDT Source: [facility] POWERCHART Document Id: [id number] CDT!41 documented in this encounter Plan of Treatment Upcoming Encounters Date Type Specialty Care Team Description 08/30/2022 Clinical Communication Admitting/Central Scheduling 09/02/2022 Comprehensive Visit Endocrinology Ricardo Winkler APRN, C.N.P., D.N.P. [address] [place] [address] documented as of this encounter Visit Diagnoses Not on filedocumented in this encounter Additional Health Concerns Assessment Noted Time PHQ-9 Depression Total Score: 22 10/04/2013 2:31 PM CS T documented as of this encounter
--- OUTSIDE RECORDS SUMMARY | 2022-08-16 21:33 | XMS_ITS | Encounter Summary ---
:1985 Author Organization [facility] Address [address] [place] [address] Care Team Providers Name Role Phone Unavailable Primary Care Provider Unavailable Encounter Details Date Type Department Care Team Description 01/05/2015 Hospital Encounter HX [facility] Narinder De [...] do you attend sabianist or Never 2021 pentecostal services? Do you [...] Reading Time Taken Comments Blood Pressure 102/64 01/05/2015 2:07 PM SENIOR NET C DEVELOPER Pulse - - Temperature - - Respiratory Rate - - Oxygen Saturation - - Inhaled Oxygen Concentration - - Weight 74.8 kg (164 lb 14.5 oz) 01/05/2015 2:07 PM SENIOR NET C DEVELOPER Height 152 cm (4' 11.84) 01/05/2015 2:07 PM SENIOR NET C DEVELOPER Body Mass Index 32.37 01/05/2015 2:07 PM SENIOR NET C DEVELOPER documented in this encounter Progress Notes Narinder Enriquez M.D. - 01/05/2015 2:00 PM CST [id number] CHIEF COMPLAINT/REASON FOR VISIT OB. HISTORY OF PRESENT ILLNESS This patient is a 29-year-old, G6, P3-0-2-3 female with LMP of 05/18/2014 and EDC of 02/22/2015 at 33-1/7 weeks. The patient presents for OB visit. She reports active movement. No leaking of fluid or vaginal bleeding. No cramping or contractions. No pelvic pressure. No headaches or vision changes. No depression symptoms. The patient is having some discomfort in her right ribs. This is the same musculoskeletal pain and rib pain that has been going on since October. The patient reports some improvement with Tylenol and lidocaine topical as well as some massage. She feels that her right rib musculoskeletal pain is worse with movement and pushing in that area. No shortness of breath or difficulty breathing. The patient has gestational diabetes. She is following an ADA diet. She is checking her blood sugarsand brought them in for my review today. Her fasting blood sugars range from 70 to 86. Her 2-hour postprandials for breakfast range from 70 to 122. Her postprandials for lunch range from 62 to 113. Her postprandials for dinner range from 70 to 117. ALLERGIES No known drug allergies. MEDICATIONS 1. Generic vitamins. 2. Tylenol #3 as needed. 3. Lidocaine topical as needed. PAST MEDICAL/SURGICAL HISTORY PAST MEDICAL HISTORY: 1. Right rib musculoskeletal pain and discomfort. 2. History of tobacco abuse, quit 2013. 3. History of depression. 4. History of bipolar disorder. 5. History of cervical dysplasia in 2005. 6. History of polycystic ovarian syndrome. PAST SURGICAL HISTORY: 1. Laparoscopic appendectomy in 2012. 2. LEEP procedure, 2005. PAST OBSTETRICAL HISTORY: 1. Vaginal delivery, 02/10/2002. 2. Vaginal delivery, 08/16/2008. 3. Vaginal delivery, 11/06/2010. 4. Miscarriage, 2004. 5. Miscarriage, 2005. VITAL SIGNS Weight 74.8 kg, height 152 cm. Blood pressure 102/64, pulse 68. PHYSICAL EXAMINATION GENERAL: Well-developed, well-nourished, gravid female in no apparent distress. Alert and oriented x3. CHEST: Clear to auscultation bilaterally. HEART: Regular rate and rhythm without murmur. ABDOMEN: Soft, gravid, nontender. Positive bowel sounds. Fundal height 33 cm. Positive heart tones, 144 beats per minute. Vertex presentation by [place]. There is some tenderness on the right rib cage and right chest sidewall with palpation. No rebound. No guarding. EXTREMITIES: No clubbing, cyanosis, or edema. Nontender bilaterally. GENITALIA: Exam deferred. IMPRESSION/REPORT/PLAN 1. Intrauterine at 33-1/7 weeks. 2. Gestational diabetes, diet controlled. 3. Right musculoskeletal discomfort and rib pain. PLAN: 1. Reassurance given to the patient. 2. I encouraged the patient to continue to follow ADA diet and check Accu-Cheks as directed. I discussed ADA diet with the patient. I discussed the importance of good blood sugar control in . 3. I discussed symptomatic relief measures for the patient's musculoskeletal discomfort and pain. I discussed massage. I discussed bath. I discussed Tylenol. I discussed heating pads. I discussed sports creams such as Icy Hot and Bengay. I discussed lidocaine topical, as well as Tylenol use. 4. If the patient's musculoskeletal discomfort and rib pain continues or worsens, I would like for her to see Physical Therapy for evaluation and treatment in . The patient declines consult today. 5. I would like the patient follow up in 2 weeks for obstetric visit or be seen sooner as needed. 6. Routine obstetric precautions, recommendations, instructions are reviewed with patient including movement and kick counts. 7. labor precautions reviewed with the patient. 8. I spent 25 minutes oyja-ti-uoov time with the patient, with over 50% of that time spent in counseling. Narinder Enriquez M.D./cristiano Electronically Signed By: NARINDER ENRIQUEZ MD On: 01/05/2015 05:01 PM Source: [facility] MHSDOLBEYNONRADSYS Document Id: [id number] OR NET C DEVELOPER documented in this encounter Miscellaneous Notes Telephone Encounter - Susana Morgan L.P.N. - 01/13/2015 1:58 PM CST *Phone Message Document Contains Addenda Addendum by NARINDER ENRIQUEZ MD on 13 January 2015 14:12:38 SENIOR NET C DEVELOPER From: NARINDER ENRIQUEZ MD To: Obstetrics/Gynecology Nurse; Sent: 01/13/2015 14:12:38 SENIOR NET C DEVELOPER Subject: RE: *Phone Message spoke with the patient. I recommend that she be seen. she reports that the bite is ragged and irregular and has debries and cat hair embeded in the wound. I recommend that she be seen in the ER to allow for proper cleaning of the wound and even possible sutures. From: SUSANA MORGAN LPN ( Obstetrics/Gynecology Nurse) To: NARINDER ENRIQUEZ MD; Sent: 01/13/2015 13:58:59 SENIOR NET C DEVELOPER Subject: *Phone Message Caller is: ( x ) Patient ( ) Mother ( ) Father ( ) Spouse ( ) Daughter ( ) Son ( ) Pharmacy ( ) Other: Physician: Patient MRN #: Reason for Call: Spoke with patient. States she had to take her cat to the vet today and while they were there the cat became very anxious and bit her in the arm. States she has puncture wounds in her arm and thinks she may need an antibiotic. I suggested patient go to the ER but patient did not want to do that in fear of a police report being filed against her cat due to it being a bad animal bite. Was hoping to be seen by you today. Message: Advice/Action: Source used: ( ) Verbalizes [...] back cell phone number ( ) Source: [facility] POWERCHART Document Id: [id number] Electronically signed by Wendi [facility] Contract Technical Writer [id number] at 04/20/2017 7:38 PM CDT Miscellaneous - Narinder Enriquez M.D. - 01/05/2015 2:22 PM CST Ambulatory Patient Summary [address] [id number] Visit Information Name: [facility] Number: [id number] Current Date: 01/05/2015 14:22:41 Physicians Attending Provider: NARINDER ENRIQUEZ MD Primary [...] the Following Medications: Medication list as of 01-05-15 14:22 Attention: If you have any medications at [...] Electronically Signed By: NARINDER ENRIQUEZ MD Signed On:05-JAN-2015 14:22:37 Your Allergies & Intolerances Substance Reaction Symptoms [...] Your Upcoming Appointments Date Time Location Provider 01/19/2015 14:00 [facility] BUILDING CONSTRUCTION IRONWORKER Narinder Enriquez MD Attention: Contact your local Clinic if further appointment detail needed. Your Goals/Additional instructions: Source: [facility] POWERCHART Document Id: [id number] OR NET C DEVELOPER Miscellaneous - Narinder Enriquez M.D. - 01/05/2015 2:22 PM CST Ambulatory Discharge Medication List [address] [id number] Visit Information Name: [facility] Number: [id number] Visit Date: 01/05/2015 14:22:40 Attending Provider: NARINDER ENRIQUEZ MD Primary Care [...] the Following Medications: Medication list as of 01-05-15 14:22 Attention: If you have any medications at [...] Electronically Signed By: NARINDER ENRIQUEZ MD Signed On:05-JAN-2015 14:22:37 Additional Information: Source: [facility] POWERCHART Document Id: [id number] OR NET C DEVELOPER Miscellaneous - Susana Morgan L.PAmarisN. - 01/05/2015 2:07 PM CST Adult Drain Cleaner Intake/History Adult Drain Cleaner Intake/History Entered On: 01/05/2015 14:09 SENIOR NET C DEVELOPER Performed On: 01/05/2015 14:07 SENIOR NET C DEVELOPER by SUSANA MORGAN LPN Intake Chief Complaint : OB visit 33 1/7 weeks LMP Date : 05/18/14 Systolic Blood Pressure : 102 mmHg Diastolic Blood Pressure : 64 mmHg NIBP Mean : 77 mmHg BP Location : Left upper extremity Blood Pressure Cuff Size : Regular Height : 152 cm(Converted to: 5 ft 0 inch(es), 60 inch(es)) Actual Weight : 74.8 kg(Converted to: 164 lb 14 oz) Weight Source : Standing scale Dosing Weight Clinic : 74.8 kg Clinic BSA : 1.78 Body Mass Index : 32.38 kg/m2 SUSANA MORGAN LPN - 01/05/2015 14:07 SENIOR NET C DEVELOPER General Info Information Given By : Patient Languages : Albanian Is Patient Female and 13-50 no hysterectomy : Yes Status : Confirmed positive Are you ? : No SUSANA MORGAN LPN - 01/05/2015 14:07 SENIOR NET C DEVELOPER Subjective Pain Symptoms : No SUSANA MORGAN LPN - 01/05/2015 14:07 SENIOR NET C DEVELOPER Dependent Habits Tobacco Use/Currently Using : Yes Exposure to Tobacco Smoke : Patient smokes Smoking Status : Current every day smoker SUSANA MORGAN LPN - 01/05/2015 14:07 SENIOR NET C DEVELOPER Tobacco Use Grid Type : Cigarettes Cigarette Use Packs/Day : 0.2 SUSANA MORGAN LPN - 01/05/2015 14:07 SENIOR NET C DEVELOPER Caffeine Use Grid Caffeine Use : None SUSANA MORGAN LPN - 01/05/2015 14:07 SENIOR NET C DEVELOPER Recreational Drug Use Grid Drug Use : None SUSANA MORGAN LPN - 01/05/2015 14:07 SENIOR NET C DEVELOPER ID Screen Drug Resistant Organism : No Travel Within Last 21 Days : No SUSANA MORGAN SEARCH MARKETING SPECIALIST - 01/05/2015 14:07 SENIOR NET C DEVELOPER Source: [facility] POWERCHART Document Id: [id number] SENIOR NET C DEVELOPER!40 OR NET C DEVELOPER documented in this encounter Plan of Treatment Upcoming Encounters Date Type Specialty Care Team Description 08/30/2022 Clinical Communication Admitting/Central Scheduling 09/02/2022 Comprehensive Visit Endocrinology Ricardo Winkler APRN, C.N.P., D.N.P. [address] [place] [phone] documented as of this encounter Visit Diagnoses Not on filedocumented in this encounter Additional Health Concerns Assessment Noted Time PHQ-9 Depression Total Score: 22 10/04/2013 2:31 PM CS T documented as of this encounter
--- OUTSIDE RECORDS SUMMARY | 2022-08-16 21:33 | XMS_ITS | Encounter Summary ---
:1985 Author Organization [facility] Address [address] [place] [address] Care Team Providers Name Role Phone Unavailable Primary Care Provider Unavailable Encounter Details Date Type Department Care Team Description 12/05/2014 Hospital Encounter HX [facility] Narinder Enriquez M.D . Social History Tobacco Use Types Packs/Day Years [...] do you attend episcopal or Never 2021 anglican services? Do you [...] - Inhaled Oxygen Concentration - - Weight - - Height 152 cm (4' 11.84) 12/05/2014 8:24 AM ENTERTAINMENT MANAGER Body Mass Index - - documented in this encounter Miscellaneous Notes Miscellaneous - Narinder Enriquez M.D. - 12/07/2014 3:38 PM CST Normal Results Letter 07 December 2014 SAMUEL JOYNER [address] [facility] [id number] Dear SAMUEL JOYNER, I am writing to report that your results from the following diagnostic test(s) are back. Two of your results from your 3 hour glucose tolerance test are elevated and abnormal. I will discuss this result and management options with you at your next clinic visit. Please follow up with us as we discussed during your visit or sooner if you have any concerns. If you have questions or concerns, please do not hesitate to call our office. Result Name Current Result Normal Range Gluc 3 Hr (mg/dL) 86 12/05/2014 70 - 139 Gluc 2 Hr (mg/dL) (H) 157 12/05/2014 70 - 155 Gluc 1 Hr (mg/dL) (H) 197 12/05/2014 70 - 139 Gluc Fast 3Hr (mg/dL) 80 12/05/2014 70 - 94 Sincerely, NARINDER ENRIQUEZ [address] [place] [address] Electronic Signature Electronically Signed By: NARINDER ENRIQUEZ MD On: 07 December 2014 This document has images extracted. Source: [facility] POWERCHART Document Id: [id number] Electronically signed by Wendi [facility] Deboning Team Leader [id number] at 04/20/2017 9:00 PM CDT documented in this encounter Plan of Treatment Upcoming Encounters Date Type Specialty Care Team Description 08/30/2022 Clinical Communication Admitting/Central Scheduling 09/02/2022 Comprehensive Visit Endocrinology Ricardo Winkler APRN, C.N.P., D.N.P. [address] [place] [phone] documented as of this encounter Procedures Procedure Name Priority Date/Time Associated Diagnosis Comme nts GLUCOSE CARRIE, 3 HR, Routine 12/05/2014 11:35 AM Re sults for this S/P ENTERTAINMENT MANAGER procedure are i n the results section. ORAL GLUCOSE Routine 12/05/2014 10:34 AM Results for this TOLERANCE, ENTERTAINMENT MANAGER procedure are i n NON-GESTATIONAL, 2 the resul ts HOUR, section. GLUCOSE CARRIE, 1HR, Routine 12/05/2014 9:35 AM Resu lts for this S/P ENTERTAINMENT MANAGER procedure are i n the results section. GLUCOSE CARRIE, 3 HR, Routine 12/05/2014 8:37 AM Res ults for this S/P ENTERTAINMENT MANAGER procedure are i n the results section. documented in this encounter Results Glucose Tolerance, 3 Hours (12/05/2014 11:35 AM ENTERTAINMENT MANAGER) P athologist Signature HXGluc 3 Hr 86 70 - 139 POWERCHART MGDL Specimen (Source) Anatomical Collection Method Collection Time Re ceived Time Location / / Volume Laterality Blood 12/05/2014 11:35 AM ENTERTAINMENT MANAGER Narinder Enriquez M.D. LAB BLOOD NON ADD-ON Performing Organization Address City/State/ZIP Code Phon e Number POWERCHART (ABNORMAL) Oral Glucose Tolerance, Non-Gestational, 2 Hour, (12/05/2014 10:34 AM ENTERTAINMENT MANAGER) P athologist Signature HXGluc 2 Hr 157 (H) 70 - 155 POWERCHART MGDL Specimen (Source) Anatomical Collection Method Collection Time Re ceived Time Location / / Volume Laterality Blood 12/05/2014 10:34 AM ENTERTAINMENT MANAGER Narinder nEriquez M.D. LAB BLOOD ADD-ON Performing Organization Address City/State/ZIP Code Phon e Number POWERCHART (ABNORMAL) Glucose Tolerance, 1HR (12/05/2014 9:35 AM ENTERTAINMENT MANAGER) P athologist Signature HXGluc 1 Hr 197 (H) 70 - 139 POWERCHART MGDL Specimen (Source) Anatomical Collection Method Collection Time Re ceived Time Location / / Volume Laterality Blood 12/05/2014 9:35 AM ENTERTAINMENT MANAGER Narinder Enriquez M.D. LAB BLOOD NON ADD-ON Performing Organization Address City/State/ZIP Code Phon e Number POWERCHART Glucose Tolerance, 3 Hours (12/05/2014 8:37 AM ENTERTAINMENT MANAGER) P athologist Signature HXGluc Fast 3Hr 80 70 - 94 POWERCHART MGDL Specimen (Source) Anatomical Collection Method Collection Time Re ceived Time Location / / Volume Laterality Blood 12/05/2014 8:37 AM ENTERTAINMENT MANAGER Narinder Enriquez M.D. LAB BLOOD NON ADD-ON Performing Organization Address City/State/ZIP Code Phon e Number POWERCHART documented in this encounter Visit Diagnoses Not on filedocumented in this encounter Additional Health Concerns Assessment Noted Time PHQ-9 Depression Total Score: 22 10/04/2013 2:31 PM CS T documented as of this encounter
--- OUTSIDE RECORDS SUMMARY | 2022-08-16 21:33 | XMS_ITS | Encounter Summary ---
:1985 Author Organization [facility] Address [address] [place] [address] Care Team Providers Name Role Phone Unavailable Primary Care Provider Unavailable Encounter Details Date Type Department Care Team Description 02/07/2015 Hospital Encounter HX [facility] Narinder De [...] do you attend yarsani or Never 2021 evangelical services? Do you [...] Sign Reading Time Taken Comments Blood Pressure 104/54 02/07/2015 2:28 PM CDT Pulse - - Temperature - - Respiratory Rate - - Oxygen Saturation - - Inhaled Oxygen Concentration - - Weight 75.7 kg (166 lb 14.2 oz) 02/07/2015 2:28 PM CDT Height 152 cm (4' 11.84) 02/07/2015 2:28 PM CDT Body Mass Index 32.76 02/07/2015 2:28 PM CDT documented in this encounter Progress Notes Narinder Enriquez M.D. - 02/07/2015 2:26 PM CDT [id number] CHIEF COMPLAINT/REASON FOR VISIT OB. HISTORY OF PRESENT ILLNESS This patient is a 29-year-old G6, P3-0-2-3 female with LMP of 05/18/2014 and EDC of 02/22/2015 at 38and 0/7 weeks. Patient presents for OB visit. She is doing well. She has complicated by gestational diabetes. She has migraine headaches versus tension headaches that are currently asymptomatic. She has history depression but is off medication and asymptomatic. She has a history of PCOS and is asymptomatic. She is a former smoker and quit smoking last year. Patient is doing well. She reports active movement. She reports irregular uterine contractionsthat are worse at the end of the day. She did have some contractions last night but these resolved when she woke up this morning. She denies any pelvic pressure. No headaches or vision changes. No depression symptoms. No fevers or chills. No leaking of fluid or vaginal bleeding. The patient has gestational diabetes. She is following ADA diet. She did not bring in her blood sugars for my review. She reports that her blood sugars look good. ALLERGIES No known drug allergies. MEDICATIONS 1. Generic vitamins. 2. Tylenol #3 as needed. 3. Lidocaine topical gel as needed. PAST MEDICAL/SURGICAL HISTORY PAST MEDICAL HISTORY: 1. Right rib musculoskeletal pain and discomfort, now asymptomatic. 2. History of tobacco abuse. Quit 2013. 3. History depression and bipolar disorder, currently asymptomatic. 4. History of cervical dysplasia in 2005. 5. History of polycystic ovarian syndrome. PAST SURGICAL HISTORY: 1. Laparoscopic appendectomy, 2012. 2. LEEP procedure 2005. PAST OBSTETRICAL HISTORY: 1. Vaginal delivery 02/10/2002. 2. Vaginal delivery 08/16/2008. 3. Vaginal delivery 11/06/2010. 4. Miscarriage 2004. 5. Miscarriage 2005. VITAL SIGNS Weight 75.7 kg, height 152 cm. Blood pressure 104/54, pulse 66. PHYSICAL EXAMINATION GENERAL: Well-developed, well-nourished, gravid female in no apparent distress. Alert and oriented x3. ABDOMEN: Soft, gravid, nontender. Positive bowel sounds. Fundal height 38 cm. Positive heart tones 138 beats per minute. Vertex presentation by Ky's. EXTREMITIES: No clubbing, cyanosis or edema. Nontender bilaterally. GENITALIA: Cervix is 2 cm dilated, 1 cm thick, 0 station. Cephalic presentation confirmed. No changefrom prior examination. DIAGNOSTICS Labs 01/26/2015 GBS culture negative. IMPRESSION/REPORT/PLAN 1. Intrauterine at 38 and 0/7 weeks. Positive cardiac activity. 2. Gestational diabetes on [employer] diet. 3. History of depression, currently asymptomatic. 4. History of right rib musculoskeletal pain and discomfort in , now asymptomatic. PLAN: 1. I would like the patient to follow up in 1 week for OB visit or be seen sooner as needed. 2. Routine OB precautions, recommendations, instructions are reviewed with patient including movement and kick counts. 3. Labor precautions reviewed with the patient. 4. I discussed gestational diabetes in . I discussed the importance of good blood sugar control in . I would like the patient to follow [employer] diet. I would like the patient to check her blood sugars with fasting and 2-hour postprandials and bring this in for my review at the next visit. 5. I spent 25 minutes njby-lk-ljuv time with the patient with over 50% of that time spent in counseling. Narinder Enriquez M.D./cristiano Electronically Signed By: NARINDER ENRIQUEZ MD On: 02/07/2015 04:16 PM Source: [facility] MHSDOLBEYNONRADSYS Document Id: [id number] documented in this encounter Miscellaneous Notes Miscellaneous - Narinder Enriquez M.D. - 02/07/2015 2:44 PM CDT Ambulatory Patient Summary [address] [id number] Visit Information Name: SAMUEL NG [facility] Number: [id number] Current Date: 02/07/2015 14:44:28 Physicians Attending Provider: NARINDER ENRIQUEZ MD Primary [...] the Following Medications: Medication list as of 02-07-15 14:44 Attention: If you have any medications at [...] Electronically Signed By: NARINDER ENRIQUEZ MD Signed On:07-FEB-2015 14:44:19 Your Allergies & Intolerances Substance Reaction Symptoms [...] Your Upcoming Appointments Date Time Location Provider 02/13/2015 08:45 [facility] RURAL SERVICE ENGINEER Narinder Enriquez MD Attention: Contact your local Clinic if further appointment detail needed. Your Goals/Additional instructions: Source: [facility] POWERCHART Document Id: [id number] Nikhil - Narinder Enriquez M.D. - 02/07/2015 2:44 PM CDT Ambulatory Discharge Medication List [address] [id number] Visit Information Name: [facility] NG [facility] Number: [id number] Visit Date: 02/07/2015 14:44:27 Attending Provider: NARINDER ENRIQUEZ MD Primary Care [...] the Following Medications: Medication list as of 02-07-15 14:44 Attention: If you have any medications at [...] Electronically Signed By: NARINDER ENRIQUEZ MD Signed On:07-FEB-2015 14:44:19 Additional Information: Source: [facility] POWERCHART Document Id: [id number] Nikhil - Twyla Brito R.N. - 02/07/2015 2:28 PM CDT Adult Choke Reamer Intake/History Adult Choke Reamer Intake/History Entered On: 02/07/2015 14:29 CDT Performed On: 02/07/2015 14:28 CDT by TWYLA CLEMONS Intake Chief Complaint : OB visit 38 weeks Systolic Blood Pressure : 104 mmHg Diastolic Blood Pressure : 54 mmHg NIBP Mean : 71 mmHg BP Location : Right upper extremity Blood Pressure Cuff Size : Regular Height : 152 cm(Converted to: 5 ft 0 inch(es), 60 inch(es)) Actual Weight : 75.7 kg(Converted to: 166 lb 14 oz) Dosing Weight Clinic : 75.7 kg Clinic BSA : 1.79 Body Mass Index : 32.76 kg/m2 TWYLA CLEMONS - 02/07/2015 14:28 CDT General Info Languages : Persian Is Patient Female and 13-50 no hysterectomy : No TWYLA CLEMONS - 02/07/2015 14:28 CDT Subjective Pain Symptoms : No TWYLA CLEMONS - 02/07/2015 14:28 CDT Dependent Habits Tobacco Use/Currently Using : No Exposure to Tobacco Smoke : Patient smokes Smoking Status : Former smoker TWYLA CLEMONS - 02/07/2015 14:28 CDT Tobacco Use Grid Type : Cigarettes Last Use : 07/07 TWYLA CLEMONS - 02/07/2015 14:28 CDT Caffeine Use Grid Caffeine Use : None TWYLA CLEMONS - 02/07/2015 14:28 CDT Recreational Drug Use Grid Drug Use : None TWYLA CLEMONS - 02/07/2015 14:28 CDT ID Screen Drug Resistant Organism : No Travel Within Last 21 Days : No Contact with someone with Ebola : No TWYLA CLEMONS - 02/07/2015 14:28 CDT [facility] Document Id: [id number] CDT!36 documented in this encounter Plan of Treatment Upcoming Encounters Date Type Specialty Care Team Description 08/30/2022 Clinical Communication Admitting/Central Scheduling 09/02/2022 Comprehensive Visit Endocrinology Ricardo Winkler APRN, C.N.P., D.N.P. [address] [place] [phone] documented as of this encounter Visit Diagnoses Not on filedocumented in this encounter Additional Health Concerns Assessment Noted Time PHQ-9 Depression Total Score: 22 10/04/2013 2:31 PM CS T documented as of this encounter
--- OUTSIDE RECORDS SUMMARY | 2022-08-16 21:33 | XMS_ITS | Encounter Summary ---
:1985 Author Organization [facility] Address [address] [place] [address] Care Team Providers Name Role Phone Unavailable Primary Care Provider Unavailable Encounter Details Date Type Department Care Team Description 01/26/2015 Hospital Encounter HX NO MAPPING Jhonny Enriquez M.D. Social History Tobacco Use Types Packs/Day Years [...] do you attend advent or Never 2021 nondenominational services? Do you [...] Ricardo Winkler APRN, C.N.P., D.N.P. [address] [place] [address] documented as of this encounter Visit Diagnoses Not on filedocumented in this encounter Additional Health Concerns Assessment Noted Time PHQ-9 Depression Total Score: 22 10/04/2013 2:31 PM CS T documented as of this encounter
--- OUTSIDE RECORDS SUMMARY | 2022-08-16 21:33 | XMS_ITS | Encounter Summary ---
:1985 Author Organization [facility] Address [address] [place] [address] Care Team Providers Name Role Phone Unavailable Primary Care Provider Unavailable Encounter Details Date Type Department Care Team Description 01/29/2015 Hospital Encounter HX NO MAPPING Jhonny Enriquez [...] do you attend sikh or Never 2021 rastafari services? Do you [...] Ricardo Winkler APRN, C.N.P., D.N.P. [address] [place] [address] documented as of this encounter Visit Diagnoses Not on filedocumented in this encounter Additional Health Concerns Assessment Noted Time PHQ-9 Depression Total Score: 22 10/04/2013 2:31 PM CS T documented as of this encounter
--- OUTSIDE RECORDS SUMMARY | 2022-08-16 21:33 | XMS_ITS | Encounter Summary ---
:1985 Author Organization [facility] Address [address] [place] [address] Care Team Providers Name Role Phone Unavailable Primary Care Provider Unavailable Encounter Details Date Type Department Care Team Description 12/18/2016 Hospital Encounter HX NO MAPPING Jhonny Enriquez [...] do you attend mandaeism or Never 2021 tenriism services? Do you [...] hr patch documented as of this encounter Plan of Treatment Upcoming Encounters Date Type Specialty Care Team Description 08/30/2022 Clinical Communication Admitting/Central Scheduling 09/02/2022 Comprehensive Visit Endocrinology Ricardo Winkler APRN, C.N.P., D.N.P. [address] [place] [address] documented as of this encounter Visit Diagnoses Not on filedocumented in this encounter Additional Health Concerns Assessment Noted Time PHQ-9 Depression Total Score: 17 08/02/2015 8:53 AM CD T documented as of this encounter
--- OUTSIDE RECORDS SUMMARY | 2022-08-16 21:33 | XMS_ITS | Encounter Summary ---
:1985 Author Organization [facility] Address [address] [place] [address] Care Team Providers Name Role Phone Unavailable Primary Care Provider Unavailable Encounter Details Date Type Department Care Team Description 12/26/2016 Hospital Encounter HX [facility] Karen Menon M.D. [address] [place], [place] [phone] (Wo rk) Social History Tobacco Use Types [...] or relatives? How often do you attend bahai or Never 2021 restoration services? Do you belong to any clubs or No 01/25/2022 organizations such as bahai groups, unions, fraternal or athletic groups, or [...] Reading Time Taken Comments Blood Pressure 108/60 12/26/2016 9:55 AM SWIMMING POOL SERVICE TECHNICIAN Pulse 72 12/26/2016 9:55 AM SWIMMING POOL SERVICE TECHNICIAN Temperature - - Respiratory Rate 14 12/26/2016 9:55 AM SWIMMING POOL SERVICE TECHNICIAN Oxygen Saturation - - Inhaled Oxygen Concentration - - Weight 70 kg (154 lb 5.2 oz) 12/26/2016 9:55 AM SWIMMING POOL SERVICE TECHNICIAN Height 152 cm (4' 11.84) 12/26/2016 9:55 AM SWIMMING POOL SERVICE TECHNICIAN Body Mass Index 30.3 12/26/2016 9:55 AM SWIMMING POOL SERVICE TECHNICIAN documented in this encounter Medications at Time of Discharge Medication Sig Dispensed Refills Start Date End Date norelgestromin-ethinyl Apply 1 patch 0 12/18/2016 01/07/2018 estradiol (ORTHO EVRA) topically once a week. 150-35 mcg/24 hr patch documented as of this encounter Progress Notes Karen Fuentes M.D. - 02/12/2017 12:00 AM CDT [id number] NOTE FROM THE PHYSICIAN: the patient no showed to her appointment this morning. This document serves as a record of services personally performed by Karen Baltazar MD. It was created on their behalf by Viky Man, a trained medical director occupational health. The creation of this record is based on the scribe's personal observations and the provider's statements to them. This document has been matilda cked and approved by the attending provider. Karen Cole M.D./faby Electronically Signed By: KAREN FUENTES MD On: 02/24/2017 09:24 AM Source[facility] Document Id: [id number] Karen Fuentes M.D. - 12/26/2016 9:41 AM CST [id number] CHIEF COMPLAINT/ REASON FOR VISIT Left shoulder pain. HISTORY OF PRESENT ILLNESS Keily is a 31 year old female who presents to the clinic today for left shoulder pain. Three days ago Susannah left shoulder began hurting. The pain came out of nowhere; she does not recall any injury or new activity. 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 Dressing herself is hard as well due to the limited range of motion she has of her left arm. The pain is constant and radiates into her back. If Keily takes a deep breath pain radiates to her chest. She has tried taking Ibuprofen without any relief. She has taken Tramadol and Flexeril with no relief. She took #2 tablets of Vicodin which helped but made her itchy and nauseous. She also tried taking #2 tablets of Percocet which did help with the pain. Keily mentions that she hasbeen sleeping differently recently since her son has been sick and has been holding him more often, he weights 30lbs. She went to the ED at [facility] last night for her left shoulder pain. An x-ray of her left shoulder was obtained. Symptomatic cares were recommended including ice and elevation. Keily was given a prescription for Prednisone as well, which she has not yet started. The patient denies any additional questions or concerns at this time. MEDICATIONS Post-visit Medication Reconciliation Reviewed and are as outlined in the EMR dated 12/26/2016. ALLERGIES No known drug allergies. SYSTEMS REVIEW Please see HPI for pertinent positives, otherwise rest of ROS negative. PAST MEDICAL/SURGICAL HISTORY 1. Bipolar disorder. 2. Polycystic ovary syndrome. 3. Depression. 4. History of tension headaches. 5. History of chronic musculoskeletal pain. 6. History of gestational diabetes. 7. Breast lump. 8. Miscarriage at 11 weeks gestation, 11/2004. 9. Miscarriage at 13 weeks gestation, 11/2005. 10. Personal history of cervical dysplasia. 11. History of tobacco abuse. PREVENTIVE SERVICES Tobacco use: none, former smoker. VITAL SIGNS HEIGHT: 152 cm. WEIGHT: 70 kg. BMI: 30.3 kg/m2. TEMP: 36.4 Deg C. PULSE: 72 /min. RESP: 14 /min. SYSTOLIC: 108 mmHg. DIASTOLIC: 60 mmHg. PHYSICAL EXAMINATION GENERAL: Patient is alert and oriented times three, in no acute distress, good hygiene and is dressed appropriately. MUSCULOSKELETAL: Tenderness medial to the left scapula. Pain with passive range of motion just belowhorizontal. DIAGNOSTICS: ED note was reviewed. Left shoulder x-ray dated 12/25/2016 obtained at [facility] findings/impression: There is no acute fracture, malalignment or degenerative change. Soft tissues are radiographically unremarkable. Impression: unremarkable radiographs of left shoulder. IMPRESSION/REPORT/PLAN 1. Left shoulder pain, suspect rotator cuff tendonitis. Will obtain MRI of her left shoulder for further evaluation. I recommended starting the Prednisone that was prescribed in the ED last night and to treat symptomatically with NSAIDs as tolerated and ice. Further recommendations pending MRI results. 2. Follow up. The patient will contact the clinic with any new or worsening symptoms. This document serves as a record of services personally performed by Karen Baltazar MD. It was created on their behalf by Viky Man, a trained medical director occupational health. The creation of this record is based on the scribe's personal observations and the provider's statements to them. This document has been matilda cked and approved by the attending provider. Karen Cole M.D./faby Electronically Signed By: KAREN FUENTES MD On: 01/15/2017 10:57 PM Source: [facility] Document Id: [id number] MING POOL SERVICE TECHNICIAN documented in this encounter Miscellaneous Notes Miscellaneous - Mallorie Boyce - 03/24/2017 9:22 AM CDT A message from your Primary Care Provider and your Care Team From: MALLORIE BOYCE LPN To: KEILY NG Sent: 03/24/2017 09:22:34 CDT Subject: A message from your Primary Care Provider and your Care Team Keily Ng [facility] Number: [id number] [address] [place] [address] : 1985 Ms. Ng, We have developed a six-month overview of preventive and recommended services that apply to your unique health care needs. Some may be past due or may be coming due in the next three months. If youhave already scheduled any or all of these services, thank you. We recognize that this may or may not include all of your individualized health care needs; however, we are happy to help you with any and all primary care concerns you may have. Past Due Fasting Glucose Lab Test for Diabetes Screening: recommended preventive service starting at age 18 It may be possible to bundle some of the above services together to make your visit with us more convenient. Please call [phone] to schedule services that are past due or that may shortly become due (thank you if you have already done so). We will follow up in three to six months should you have more services to schedule at that time. If you have already received any of the listed past due or upcoming services outside of [facility], please call [phone] to add them to your medical record. You may want to consider contacting your health insurance company to make sure these services are covered and find out if there will be any [id number] expense. If you have any questions about the services listed above, or if you are no longer receiving care from [facility], please contact us at [phone]. Thank you for partnering to provide you with the best care possible. Thank you for choosing us, Karen Cole M.D. and the [facility], for your health care needs! Source: [facility] POWERCHART Document Id: [id number] Electronically signed by Conversion, [facility] Director Of Medical Review [id number] at 05/06/2017 12:30 AM CDT Miscellaneous - Karen Fuentes M.D. - 12/26/2016 1:21 PM SWIMMING POOL SERVICE TECHNICIAN Ambulatory Patient Summary [address] [id number] Visit Information Name: KEILY NG [facility] Number: [id number] Current Date: 12/26/2016 13:21:35 Physicians Attending Provider: KAREN FUENTES MD Primary Care Provider: KAREN FUENTES MD [...] Take Indications/Special Instructions/Comments/Notes for Patient Medication Changes/Routing *albuterol (albuterol 5 mg/mL (0.5%) inhalation solution) 0.5 Milliliter, Inhalation, every 6 hours as needed for wheezing norelgestromin-ethinyl estradiol (Ortho Evra 150 mcg-35 mcg/24 hr transdermal film, extended release) 1 patch(es), Topical, every week Apply one patch each week for 3 weeks (21 total days); followed byone week that is patch-free. * You have let us know that you are not taking this medication as listed. Please talk with your primary care provider or the health care provider who prescribed the medication as soon as possible. Stop Taking the Following Medications: Medication list as of 12-26-16 13:21 Attention: If you have any medications at home that are not on this list, DO NOT take them until youcontact your provider for clarification. Give a copy of your medication list to your primary care provider. Update your medication list any time medications or doses are changed and carry your medication list at all times in case of emergency. Electronically Signed By: KAREN FUENTES MD Signed On:26-DEC-2016 13:21:32 Your Allergies & Intolerances Substance Reaction Symptoms [...] Your Upcoming Appointments Date Time Location Provider 12/26/2016 14:30 [facility] DIRECTOR OF STRATEGIC PROGRAMS Mina GALLARDO, Jhonny Dockery Attention: Contact your local Clinic if further [...] if you dont have one. Go to [email or web address] and click on Create Your Account. Then, follow the directions to complete the online form. Youll be asked for your [facility] number which you can find at the top of this document. Your Goals/Additional instructions: Source: [facility] POWERCHART Document Id: [id number] MING POOL SERVICE TECHNICIAN Miscellaneous - Karen Fuentes M.D. - 12/26/2016 1:21 PM SWIMMING POOL SERVICE TECHNICIAN Ambulatory Discharge Medication List [address] [id number] Visit Information Name: KEILY NG [facility] Number: [id number] Current Date: 12/26/2016 13:21:34 Attending Provider: KAREN FUENTES MD Primary Care Provider: KAREN FUENTES MD [...] Take Indications/Special Instructions/Comments/Notes for Patient Medication Changes/Routing *albuterol (albuterol 5 mg/mL (0.5%) inhalation solution) 0.5 Milliliter, Inhalation, every 6 hours as needed for wheezing norelgestromin-ethinyl estradiol (Ortho Evra 150 mcg-35 mcg/24 hr transdermal film, extended release) 1 patch(es), Topical, every week Apply one patch each week for 3 weeks (21 total days); followed byone week that is patch-free. * You have let us know that you are not taking this medication as listed. Please talk with your primary care provider or the health care provider who prescribed the medication as soon as possible. Stop Taking the Following Medications: Medication list as of 12-26-16 13:21 Attention: If you have any medications at home that are not on this list, DO NOT take them until youcontact your provider for clarification. Give a copy of your medication list to your primary care provider. Update your medication list any time medications or doses are changed and carry your medication list at all times in case of emergency. Electronically Signed By: KAREN FUENTES MD Signed On:26-DEC-2016 13:21:32 Additional Information: Source: [facility] POWERCHART Document Id: [id number] MING POOL SERVICE TECHNICIAN Miscellaneous - Pretty Shaver, L.P.N. - 12/26/2016 11:40 AM CST *General Message Document Contains Addenda Addendum by CELSO LEONG on December 26, 2016 11:47:09 SWIMMING POOL SERVICE TECHNICIAN From: CELSO LEONG ([facility] Java Oracle Developer/Radiology Outside [facility]) To: EMMANUEL Baltazar Nurse; Sent: 12/26/2016 11:47:09 SWIMMING POOL SERVICE TECHNICIAN Subject: RE: *General Message No auth needed per TRACE PA selvin From: PRETTY SHAVER LPN (EMMANUEL [facility] Nurse) To: [facility] Java Oracle Developer[facility]; Sent: 12/26/2016 11:40:17 SWIMMING POOL SERVICE TECHNICIAN Subject: *General Message Patient Referred to Provider or Facility: _[facility]OH/[facility] Ordering Provider: _Dr. Baltazar Appointment Date (if known): _ Imaging Service Ordered: (list CPT code or body part to be scanned) _L shoulder _ W/ Contrast _ W/O Contrast _ W/O Contrast followed by with _ _ CT/CTA _X MRI _ MRA _ PET _Nuclear Cardiology Study _ Other: (list): _ Diagnosis (CPT code if Known): L shoulder pain Source: [facility] Newsblur Document Id: [id number] Electronically signed by Conversion, [facility] Director Of Medical Review [id number] at 05/06/2017 12:30 AM CDT Karen Land M.D. - 12/26/2016 10:37 AM SWIMMING POOL SERVICE TECHNICIAN Addendum by PRETTY SHAVER LPN on December 26, 2016 11:48:00 SWIMMING POOL SERVICE TECHNICIAN PA done, will fax as soon as signed From: KAREN FUENTES MD To: Delaney Nurse; Sent: 12/26/2016 10:37:28 SWIMMING POOL SERVICE TECHNICIAN Pleae arrange for MRI of the left shoulder to evaluate pain and weakness. Source: [facility] News[employer] Document Id: [id number] Electronically signed by Conversion, [facility] Director Of Medical Review [id number] at 05/06/2017 12:30 AM CDT Nikhil - Pretty Shaver L.P.NAmaris - 12/26/2016 9:58 AM CST Health Assessment Health Assessment Entered On: 12/26/2016 9:59 SWIMMING POOL SERVICE TECHNICIAN Performed On: 12/26/2016 9:58 SWIMMING POOL SERVICE TECHNICIAN by PRETTY SHAVER LPN Health Assessment Complete Health Assessment Complete or Modified : Annual Health Assessment Annual Health Assessment Completed : Yes PRETTY SHAVER LPN - 12/26/2016 9:58 SWIMMING POOL SERVICE TECHNICIAN Nutrition Nutrition Risk Factors by History Adult : None PRETTY SHAVER LPN - 12/26/2016 9:58 SWIMMING POOL SERVICE TECHNICIAN Functional Current Daily Living Assistance : None PRETTY SHAVER LPN - 12/26/2016 9:58 SWIMMING POOL SERVICE TECHNICIAN Dependent Habits Exposure to Tobacco Smoke : Other: former. Quit 06/2014 Smoking Status : Former smoker Tobacco 2A : Yes Tobacco Use/Currently Using : No Tobacco Use/Last 30 Days : No Tobacco Use/Last 12 months : No Alcohol Use : No PRETTY SHAVER LPN - 12/26/2016 9:58 SWIMMING POOL SERVICE TECHNICIAN Caffeine Use Grid Caffeine Use : None PRETTY SHAVER LPN - 12/26/2016 9:58 SWIMMING POOL SERVICE TECHNICIAN Recreational Drug Use Grid Drug Use : None PRETTY SHAVER LPN - 12/26/2016 9:58 SWIMMING POOL SERVICE TECHNICIAN Psychosocial Domestic Abuse Concerns : None Behavioral Health Screen/Safety Assmt : No Faith Preference : Unknown PRETTY SHAVER LPN - 12/26/2016 9:58 SWIMMING POOL SERVICE TECHNICIAN Advance Directive Advanced Directives : No Advance Directive Additional Information : No PRETTY SHAVER LPN - 12/26/2016 9:58 SWIMMING POOL SERVICE TECHNICIAN Educ Needs Learning Style Preference Adult Grid Patient : None Family : None PRETTY SHAVER LPN - 12/26/2016 9:58 SWIMMING POOL SERVICE TECHNICIAN [facility]: [facility] POWERCHART Document Id: [id number] SWIMMING POOL SERVICE TECHNICIAN!33 MING POOL SERVICE TECHNICIAN Miscellaneous - Pretty Shaver LAmarisP.NAmaris - 12/26/2016 9:55 AM CST Adult Travelift Operator Intake/History Adult Travelift Operator Intake/History Entered On: 12/26/2016 9:58 SWIMMING POOL SERVICE TECHNICIAN Performed On: 12/26/2016 9:55 SWIMMING POOL SERVICE TECHNICIAN by PRETTY SHAVER LPN Intake Chief Complaint : L shoulder and head pain Temperature Core : 36.4 DegC(Converted to: 97.5 DegF) (LOW) Peripheral Pulse Rate : 72 /min Respiratory Rate : 14 /min Systolic Blood Pressure : 108 mmHg Diastolic Blood Pressure : 60 mmHg NIBP Mean : 76 mmHg BP Location : Right upper extremity Blood Pressure Cuff Size : Regular Height : 152 cm(Converted to: 5 ft 0 inch(es), 60 inch(es)) Actual Weight : 70 kg(Converted to: 154 lb 5 oz) Weight Source : Standing scale Dosing Weight Clinic : 70 kg Clinic BSA : 1.72 Body Mass Index : 30.3 kg/m2 PRETTY SHAVER LPN 12/26/2016 9:55 SWIMMING POOL SERVICE TECHNICIAN General Info Information Given By : Patient Languages : Maori Is Patient Female and 13-50 no hysterectomy : Yes Status : Patient denies Are you ? : No PRETTY SHAVER LPN 12/26/2016 9:55 SWIMMING POOL SERVICE TECHNICIAN Subjective Pain Symptoms : Yes PRETTY SHAVER LPN 12/26/2016 9:55 SWIMMING POOL SERVICE TECHNICIAN Pain Scale Pain Scale Verbal 0-10 : Open PRETTY SHAVER LPN 12/26/2016 9:55 SWIMMING POOL SERVICE TECHNICIAN Pain Pain Assessment Grid Pain 1 Location : Shoulder Intensity : 9 PRETTY SHAVER LPN 12/26/2016 9:55 SWIMMING POOL SERVICE TECHNICIAN Dependent Habits Exposure to Tobacco Smoke : Other: former. Quit 06/2014 Smoking Status : Former smoker Tobacco 2A : Yes Tobacco Use/Currently Using : No Tobacco Use/Last 30 Days : No Tobacco Use/Last 12 months : No PRETTY SHAVER LPN - 12/26/2016 9:55 SWIMMING POOL SERVICE TECHNICIAN Caffeine Use Grid Caffeine Use : None PRETTY SHAVER LPN 12/26/2016 9:55 SWIMMING POOL SERVICE TECHNICIAN Recreational Drug Use Grid Drug Use : None PRETTY SHAVER LPN 12/26/2016 9:55 SWIMMING POOL SERVICE TECHNICIAN Source: [facility] POWERCHART Document Id: [id number] SWIMMING POOL SERVICE TECHNICIAN!45 MING POOL SERVICE TECHNICIAN documented in this encounter Plan of Treatment Upcoming Encounters Date Type Specialty Care Team Description 08/30/2022 Clinical Communication Admitting/Central Scheduling 09/02/2022 Comprehensive Visit Endocrinology Ricardo Winkler APRN, C.N.P., D.N.P. [address] [place] [address] documented as of this encounter Visit Diagnoses Not on filedocumented in this encounter Additional Health Concerns Assessment Noted Time PHQ-9 Depression Total Score: 17 08/02/2015 8:53 AM CD T documented as of this encounter
--- OUTSIDE RECORDS SUMMARY | 2022-08-16 21:33 | XMS_ITS | Encounter Summary ---
:1985 Author Organization [facility] Address [address] [place] [address] Care Team Providers Name Role Phone Unavailable Primary Care Provider Unavailable Encounter Details Date Type Department Care Team Description 01/19/2015 Hospital Encounter HX [facility] Narinder De [...] or relatives? How often do you attend jehovah's witness or Never 2021 methodist services? Do you belong to any clubs or No 01/25/2022 organizations such as jehovah's witness groups, unions, fraternal or athletic groups, or [...] Reading Time Taken Comments Blood Pressure 98/60 01/19/2015 2:06 PM FILLING HAND Pulse - - Temperature - - Respiratory Rate - - Oxygen Saturation - - Inhaled Oxygen Concentration - - Weight 73.9 kg (162 lb 14.7 oz) 01/19/2015 2:06 PM FILLING HAND Height 152 cm (4' 11.84) 01/19/2015 2:06 PM FILLING HAND Body Mass Index 31.99 01/19/2015 2:06 PM FILLING HAND documented in this encounter Progress Notes Narinder Enriquez M.D. - 01/19/2015 2:01 PM CST [id number] CHIEF COMPLAINT/REASON FOR VISIT OB. HISTORY OF PRESENT ILLNESS This patient is a 29-year-old, G6, P3-0-2-3 female with LMP of 05/18/2014 and EDC of 02/22/2015 at 35 and 2/7 weeks. Patient presents for OB visit. She is doing well. She reports good movement. No leaking of fluid or vaginal bleeding. No cramping or contractions. No pelvic pressure. No headachesor vision changes. No depression symptoms. The musculoskeletal pain and rib pain is improving. No shortness of breath or difficulty breathing. The patient had a cat bite on 01/13/2015. She was seen by her primary provider and had wound debridement and cleaning. She was given Augmentin antibiotic. She reports that she is still on the antibiotic and the wound is healing well. The patient has gestational diabetes. She is following ADA diet. She brought in her blood sugars formy review. Her fasting blood sugars range from 74 to 86. The 2 hour postprandials for breakfast range from 80 to 107. Her 2 hour postprandials for lunch range from 72 to 114. Her postprandials for dinner range from 69 to 122. ALLERGIES No known drug allergies. MEDICATIONS 1. Generic vitamins. 2. Tylenol #3 as needed. 3. Lidocaine topical gel as needed. 4. Augmentin given x10 days on 01/13/2015. PAST MEDICAL/SURGICAL HISTORY PAST MEDICAL HISTORY: 1. Right rib musculoskeletal pain and discomfort. 2. History of tobacco abuse. Quit smoking in 2013. 3. History of depression. 4. History of bipolar disorder. 5. History of cervical dysplasia in 2005. 6. History of polycystic ovarian syndrome. PAST SURGICAL HISTORY: 1. Laparoscopic appendectomy, 2012. 2. LEEP procedure 2005. PAST OBSTETRICAL HISTORY: 1. Vaginal delivery 02/10/2002. 2. Vaginal delivery 08/16/2008. 3. Vaginal delivery 11/06/2010. 4. Miscarriage 2004. 5. Miscarriage 2005. VITAL SIGNS Weight 73.9 kg, height 152 cm. Blood pressure 98/60, pulse 72. PHYSICAL EXAMINATION GENERAL: Well-developed, well-nourished, gravid female in no apparent distress. Alert and oriented x3. ABDOMEN: Soft, gravid, nontender. Positive bowel sounds. Fundal height 35 cm. Positive heart tones 136. Vertex presentation by [place]. CHEST: No tenderness to the right ribcage or chest wall. No rebound. No guarding. EXTREMITIES: No clubbing, cyanosis, or edema. Nontender bilaterally. The right forearm cat bite is healing well. No erythema or signs of infection. GENITALIA: Deferred. IMPRESSION/REPORT/PLAN 1. Intrauterine at 35 and 2/7 weeks. Positive cardiac activity. 2. Gestational diabetes, diet controlled. 3. Right musculoskeletal discomfort and right rib pain, improving. 4. Cat bite to right forearm, healing well. PLAN: 1. I encouraged patient to finish full course of antibiotics as prescribed. I also encouraged her tocontinue with wound care as directed. 2. I would like the patient follow up in 1 week for obstetrical visit or be seen sooner as needed. 3. I have recommend GBS culture at the next visit per protocol. 4. I discussed the importance of good blood sugar control in . 5. Encouraged patient to follow ADA diet and check Accu-Cheks as directed. 6. Symptomatic relief measures for the patient's right musculoskeletal discomfort and right rib painare discussed. I discussed massage, baths, Tylenol and heating pad. 7. Routine obstetrical precautions, recommendations, instructions are reviewed with patient including movement and kick counts. 8. labor precautions reviewed with the patient. 9. I spent 25 minutes [id number]-[id number] time with the patient, with over 50% of that time spent in counseling. Narinder Enriquez M.D./cristiano Electronically Signed By: NARINDER ENRIQUEZ MD On: 01/20/2015 10:35 AM Source: [facility] MHSDOLBEYNONRADSYS Document Id: [id number] ING HAND documented in this encounter Miscellaneous Notes Miscellaneous - Narinder Enriquez M.D. - 01/19/2015 3:44 PM CST Ambulatory Patient Summary [address] [id number] Visit Information Name: SAMUEL NG [facility] Number: [id number] Current Date: 01/19/2015 15:44:22 Physicians Attending Provider: NARINDER ENRIQUEZ MD Primary [...] Take Indications/Special Instructions/Comments/Notes for Patient Medication Changes/Routing amoxicillin-clavulanate (Augmentin 500 mg-125 mg oral tablet) 1 Tablet(s), Oral, three times a day x10 day(s) multivitamin, ( Multivitamins with Folic Acid 1 mg oral capsule) 1 cap, Oral, once a day Stop Taking the Following Medications: Medication list as of 01-19-15 15:44 Attention: If you have any medications at [...] Electronically Signed By: NARINDER ENRIQUEZ MD Signed On:19-JAN-2015 15:44:18 Your Allergies & Intolerances Substance Reaction Symptoms [...] Your Upcoming Appointments Date Time Location Provider 01/26/2015 14:00 [facility] H[facility] TRIMMER Narinder Enriquez MD 02/02/2015 14:00 [facility] HAT TRIMMER Narinder Enriquez MD 02/07/2015 14:30 [facility] HAT TRIMMER Narinder Enriquez MD 02/16/2015 14:30 [facility] HAT TRIMMER Narinder Enriquez MD Attention: Contact your local Clinic if further appointment detail needed. Your Goals/Additional instructions: Source: [facility] POWERCHART Document Id: [id number] ING HAND Miscellaneous - Narinder Enriquez M.D. - 01/19/2015 3:44 PM CST Ambulatory Discharge Medication List [address] [id number] Visit Information Name: SAMUEL NG [facility] Number: [id number] Visit Date: 01/19/2015 15:44:21 Attending Provider: NARINDER ENRIQUEZ MD Primary Care [...] Take Indications/Special Instructions/Comments/Notes for Patient Medication Changes/Routing amoxicillin-clavulanate (Augmentin 500 mg-125 mg oral tablet) 1 Tablet(s), Oral, three times a day x10 day(s) multivitamin, ( Multivitamins with Folic Acid 1 mg oral capsule) 1 cap, Oral, once a day Stop Taking the Following Medications: Medication list as of 01-19-15 15:44 Attention: If you have any medications at [...] Electronically Signed By: NARINDER ENRIQUEZ MD Signed On:19-JAN-2015 15:44:18 Additional Information: Source: [facility] POWERCHART Document Id: [id number] ING HAND Miscellaneous - Susana Morgan L.P.N. - 01/19/2015 2:06 PM CST Adult Mohs Surgeon/General Dermatologist Intake/History Adult Mohs Surgeon/General Dermatologist Intake/History Entered On: 01/19/2015 14:09 FILLING HAND Performed On: 01/19/2015 14:06 FILLING HAND by SUSANA MORGAN LPN Intake Chief Complaint : Ob visit 35 2/7 weeks LMP Date : 05/18/14 Systolic Blood Pressure : 98 mmHg Diastolic Blood Pressure : 60 mmHg NIBP Mean : 73 mmHg BP Location : Right upper extremity Blood Pressure Cuff Size : Regular Height : 152 cm(Converted to: 5 ft 0 inch(es), 60 inch(es)) Actual Weight : 73.9 kg(Converted to: 162 lb 15 oz) Weight Source : Standing scale Dosing Weight Clinic : 73.9 kg Clinic BSA : 1.77 Body Mass Index : 31.99 kg/m2 SUSANA MORGAN LPN - 01/19/2015 14:06 FILLING HAND General Info Information Given By : Patient Languages : Japanese Is Patient Female and 13-50 no hysterectomy : Yes Status : Confirmed positive Are you ? : No SUSANA MORGAN LPN - 01/19/2015 14:06 FILLING HAND Subjective Pain Symptoms : No SUSANA MORGAN LPN - 01/19/2015 14:06 FILLING HAND Dependent Habits Tobacco Use/Currently Using : Yes Exposure to Tobacco Smoke : Patient smokes Smoking Status : Current every day smoker SUSANA MORGAN LPN - 01/19/2015 14:06 FILLING HAND Tobacco Use Grid Type : Cigarettes Last Use : 07/07 SUSANA MORGAN LPN - 01/19/2015 14:06 FILLING HAND Caffeine Use Grid Caffeine Use : None SUSANA MORGAN LPN - 01/19/2015 14:06 FILLING HAND Recreational Drug Use Grid Drug Use : None SUSANA MORGAN [facility] - 01/19/2015 14:06 FILLING HAND ID Screen Drug Resistant Organism : No Travel Within Last 21 Days : No Contact with someone with Ebola : No SUSANA MORGAN [facility] - 01/19/2015 14:06 FILLING HAND Source: [facility] POWERCHART Document Id: [id number] FILLING HAND!41 ING HAND documented in this encounter Plan of Treatment Upcoming Encounters Date Type Specialty Care Team Description 08/30/2022 Clinical Communication Admitting/Central Scheduling 09/02/2022 Comprehensive Visit Endocrinology Ricardo Winkler APRN, C.N.P., D.N.P. [address] [place] [address] documented as of this encounter Visit Diagnoses Not on filedocumented in this encounter Additional Health Concerns Assessment Noted Time PHQ-9 Depression Total Score: 22 10/04/2013 2:31 PM CS T documented as of this encounter
--- OUTSIDE RECORDS SUMMARY | 2022-08-16 21:33 | XMS_ITS | Encounter Summary ---
:1985 Author Organization [facility] Address [address] [place] [address] Care Team Providers Name Role Phone Unavailable Primary Care Provider Unavailable Encounter Details Date Type Department Care Team Description 10/20/2015 Hospital Encounter HX [facility] Narinder De [...] do you attend gnosticism or Never 2021 gnosticist services? Do you [...] Sign Reading Time Taken Comments Blood Pressure 108/62 10/20/2015 11:08 AM COMIC BOOK DESIGNER Pulse 80 10/20/2015 11:08 AM COMIC BOOK DESIGNER Temperature - - Respiratory Rate - - Oxygen Saturation - - Inhaled Oxygen Concentration - - Weight 78.7 kg (173 lb 8 oz) 10/20/2015 11:08 AM COMIC BOOK DESIGNER Height 152 cm (4' 11.84) 10/20/2015 11:08 AM COMIC BOOK DESIGNER Body Mass Index 34.06 10/20/2015 11:08 AM COMIC BOOK DESIGNER documented in this encounter Progress Notes Narinder Enriquez M.D. - 10/20/2015 11:03 AM CST [id number] CHIEF COMPLAINT/REASON FOR VISIT Requests Nexplanon removal. HISTORY OF PRESENT ILLNESS This patient is a 30-year-old G6, P4-0-2-4 female who had a Nexplanon placed on 04/07/2015 for long-term contraception. The patient reports that she has had continuous irregular spotting ever since theNexplanon was placed. She has tried a course of empiric antibiotics without improvement in her bleeding. She has also tried a course of low-dose control pills without improvement in her bleeding symptoms. This has become very bothersome for the patient. The patient has not had a specific menses,just irregular vaginal spotting that has been ongoing since the of her child in January and the Nexplanon placed in March. The patient is requesting to have the Nexplanon removed. She would like to go back to Ortho Evra patch, which she has been on in the past. The patient reports she does not tolerate control pills. She also has tried an IUD in the past which she does not tolerate. She does not like to use condoms. She does not tolerate Depo-Provera. The patient further complains of weight gain. She has gained 9 kg in the last 6 months. She complains of edema and bloating. She has edema in her arms, legs, and fingers. She is no longer able to wear her rings. She reports she has tingling in her fingers and numbness in her fingers from the edema. She is not sure if her edema, swelling, and bloating symptoms are related to hormones and so that is another reason why she would like to have the Nexplanon removed so that she does not have the progesterone in her body. ALLERGIES No known drug allergies. MEDICATIONS 1. Nexplanon placed 04/07/2015, removed today. 2. Ortho Evra patch, new prescription given today. PAST MEDICAL/SURGICAL HISTORY PAST MEDICAL HISTORY: 1. Gestational diabetes. 2. History of tobacco abuse, quit 2013. 3. History of depression. 4. History of bipolar disorder. 5. History of cervical dysplasia in 2005 with normal followup Pap smears. 6. History of polycystic ovarian syndrome on no medication. PAST SURGICAL HISTORY: 1. Laparoscopic appendectomy 2012. 2. LEEP procedure 2005. PAST OBSTETRICAL HISTORY: 1. Vaginal delivery 2001. 2. Vaginal delivery 2007. 3. Vaginal delivery 2009. 4. Vaginal delivery 02/17/2015. 5. Miscarriage x2. SOCIAL HISTORY The patient is in a monogamous relationship. She quit smoking in 2013. She denies alcohol and drug use. She denies history of STD or PID. She underwent a LEEP procedure 2005 and has had normal followupPap smears. VITAL SIGNS Weight 78.7 kg, height 152 cm, pulse 80, blood pressure 108/62. PHYSICAL EXAMINATION GENERAL: Well-developed, well-nourished female, in no apparent distress. Alert and oriented x3. ABDOMEN: Soft, nontender, nondistended. Positive bowel sounds. No hepatomegaly. No rebound. No guarding. EXTREMITIES: No clubbing, cyanosis, or edema. Nontender. On the medial aspect of left upper arm the Nexplanon capsule is palpated in the normal location. It is mobile and nontender. No signs of infection. GENITALIA: Deferred. PROCEDURE I reviewed the risks, benefits, alternatives, and indication of Nexplanon removal with the patient. Patient verbalizes understanding and desires to proceed. [place] protocol form completed. I preppedand draped the medial aspect of left upper arm in the usual fashion. I cleaned the area with Betadine. I injected 3 mL of 1% lidocaine at the prior insertion site for local pain control. I then used a scalpel to made a small stab incision at the prior insertion site and, with a small hemostat, I was able to grasp and with gentle traction remove the Nexplanon capsule. This is inspected and found to beintact. This is measured at 4 cm in length. This is shown to the patient. The small stab incision isclosed with Steri-Strips. A pressure bandage is placed in the usual fashion. The patient tolerated the entire procedure well. IMPRESSION/REPORT/PLAN 1. Nexplanon removal at patient request. 2. Contraception counseling. PLAN: 1. 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 2. I reviewed the risks, benefits, alternatives, and indication of control pills, Depo-Provera, Ortho Evra patch, NuvaRing, Mirena IUD, ParaGard IUD, and condoms. I gave the patient literature toreview. 3. The patient requests to have her Nexplanon removed as mentioned above. The Nexplanon is removed without difficulty with the procedure note as mentioned above. 4. After discussing contraception options with the patient she would like to restart Ortho Evra patch, which she has been on in the past and reports no problems with. I gave the patient a prescription for Ortho Evra 1 patch to be applied weekly x3 and then off for 1 week with refills for 1 year. I reviewed the use of Ortho Evra Patch with the patient. 5. I strongly encouraged the patient to see her primary provider for evaluation and management of her edema, bloating symptoms with strong consideration of Endocrinology evaluation and workup for her weight gain and other symptoms. The patient is going to go to the front to have an appointment scheduled. Narinder Enriquez M.D./cristiano Electronically Signed By: NARINDER ENRIQUEZ MD On: 10/20/2015 12:55 PM Source: [facility] MHSDOLBEYNONRADSYS Document Id: [id number] C BOOK DESIGNER documented in this encounter Miscellaneous Notes Miscellaneous - Narinder Enriquez M.D. - 10/20/2015 11:38 AM CST Ambulatory Patient Summary [address] [id number] Visit Information Name: SAMUEL NG [facility] Number: [id number] Current Date: 10/20/2015 11:38:52 Physicians Attending Provider: NARINDER ENRIQUEZ MD Primary [...] Take Indications/Special Instructions/Comments/Notes for Patient Medication Changes/Routing norelgestromin-ethinyl estradiol (Ortho Evra 150 mcg-35 mcg/24 hr transdermal film, extended release) 1 patch(es), Topical, every week Apply one patch each week for 3 weeks (21 total days); followed byone week that is patch-free. New Routed to [address] [address] Stop Taking the Following Medications: etonogestrel (etonogestrel) levonorgestrel-ethinyl estradiol (Alesse 100 mcg-20 mcg oral tablet) multivitamin, ( Multivitamins with Folic Acid 1 mg oral capsule) Medication list as of 10-20-15 11:38 Attention: If you have any medications at [...] Electronically Signed By: NARINDER ENRIQUEZ MD Signed On:20-OCT-2015 11:38:47 Your Allergies & Intolerances Substance Reaction Symptoms [...] Your Upcoming Appointments Date Time Location Provider 10/20/2015 14:[address] [facility] Aneesh Davis MD Attention: Contact your local Clinic if [...] if you dont have one. Go to [email or web address] and click on Create Your Account. Then, follow the directions to complete the online form. Youll be asked for your [facility] number which you can find at the top of this document. Your Goals/Additional instructions: Source: [facility] POWERCHART Document Id: [id number] C BOOK DESIGNER Miscellaneous - Narinder Enriquez M.D. - 10/20/2015 11:38 AM CST Ambulatory Discharge Medication List [address] [id number] Visit Information Name: SAMUEL NG [facility] Number: [id number] Visit Date: 10/20/2015 11:38:51 Attending Provider: NARINDER ENRIQUEZ MD Primary Care [...] Take Indications/Special Instructions/Comments/Notes for Patient Medication Changes/Routing norelgestromin-ethinyl estradiol (Ortho Evra 150 mcg-35 mcg/24 hr transdermal film, extended release) 1 patch(es), Topical, every week Apply one patch each week for 3 weeks (21 total days); followed byone week that is patch-free. New Routed to [address] [address] Stop Taking the Following Medications: etonogestrel (etonogestrel) levonorgestrel-ethinyl estradiol (Alesse 100 mcg-20 mcg oral tablet) multivitamin, ( Multivitamins with Folic Acid 1 mg oral capsule) Medication list as of 10-20-15 11:38 Attention: If you have any medications at [...] Electronically Signed By: NARINDER ENRIQUEZ MD Signed On:20-OCT-2015 11:38:47 Additional Information: Source: [facility] POWERCHART Document Id: [id number] C BOOK DESIGNER Miscellaneous - Susana Morgan, L.P.N. - 10/20/2015 11:08 AM CST Adult Dowel Maker Intake/History Adult Dowel Maker Intake/History Entered On: 10/20/2015 11:11 COMIC BOOK DESIGNER Performed On: 10/20/2015 11:08 COMIC BOOK DESIGNER by SUSANA MORGAN LPN Intake Chief Complaint : Pap smear and remove Nexplanon Peripheral Pulse Rate : 80 /min Systolic Blood Pressure : 108 mmHg Diastolic Blood Pressure : 62 mmHg NIBP Mean : 77 mmHg BP Location : Right upper extremity Blood Pressure Cuff Size : Regular Height : 152 cm(Converted to: 5 ft 0 inch(es), 60 inch(es)) Actual Weight : 78.7 kg(Converted to: 173 lb 8 oz) Weight Source : Standing scale Dosing Weight Clinic : 78.7 kg Clinic BSA : 1.82 Body Mass Index : 34.06 kg/m2 SUSANA MORGAN LPN - 10/20/2015 11:08 COMIC BOOK DESIGNER General Info Information Given By : Patient Languages : Egyptian Is Patient Female and 13-50 no hysterectomy : Yes Status : Patient denies Are you ? : No SUSANA MORGAN LPN - 10/20/2015 11:08 COMIC BOOK DESIGNER Subjective Pain Symptoms : No SUSANA MORGAN LPN - 10/20/2015 11:08 COMIC BOOK DESIGNER Dependent Habits Tobacco Use/Currently Using : Yes Exposure to Tobacco Smoke : Patient smokes Smoking Status : Current every day smoker SUSANA MORGAN [facility] - 10/20/2015 11:08 COMIC BOOK DESIGNER Tobacco Use Grid Type : Cigarettes SUSANA MORGAN [facility] - 10/20/2015 11:08 COMIC BOOK DESIGNER Caffeine Use Grid Caffeine Use : None SUSANA MORGAN [facility] - 10/20/2015 11:08 COMIC BOOK DESIGNER Recreational Drug Use Grid Drug Use : None SUSANA MORGAN [facility] - 10/20/2015 11:08 COMIC BOOK DESIGNER Source: [facility] CertonaCHART Document Id: [id number] COMIC BOOK DESIGNER!36 C BOOK DESIGNER documented in this encounter Plan of Treatment Upcoming Encounters Date Type Specialty Care Team Description 08/30/2022 Clinical Communication Admitting/Central Scheduling 09/02/2022 Comprehensive Visit Endocrinology Ricardo Winkler APRN, C.N.P., D.N.P. [address] [place] [phone] documented as of this encounter Visit Diagnoses Not on filedocumented in this encounter Additional Health Concerns Assessment Noted Time PHQ-9 Depression Total Score: 17 08/02/2015 8:53 AM CD T documented as of this encounter
--- OUTSIDE RECORDS SUMMARY | 2022-08-16 21:33 | XMS_ITS | Encounter Summary ---
:1985 Author Organization [facility] Address [address] [place] [address] Care Team Providers Name Role Phone Unavailable Primary Care Provider Unavailable Encounter Details Date Type Department Care Team Description 02/17/2015 Hospital Encounter HX NO MAPPING Jhonny Enriquez [...] do you attend christian or Never 2021 quaker services? Do you [...] APRN, C.N.P., D.N.P. [address] [place] [address] documented as of this encounter Visit Diagnoses Not on filedocumented in this encounter Additional Health Concerns Assessment Noted Time PHQ-9 Depression Total Score: 22 10/04/2013 2:31 PM CS T documented as of this encounter
--- OUTSIDE RECORDS SUMMARY | 2022-08-16 21:33 | XMS_ITS | Encounter Summary ---
:1985 Author Organization [facility] Address [address] [place] [address] Care Team Providers Name Role Phone Unavailable Primary Care Provider Unavailable Encounter Details Date Type Department Care Team Description 12/02/2014 Hospital Encounter HX [facility] Narinder De [...] do you attend zoroastrian or Never 2021 jain services? Do you [...] Sign Reading Time Taken Comments Blood Pressure 112/62 12/02/2014 1:54 PM EDITORIAL SPECIALIST Pulse - - Temperature - - Respiratory Rate - - Oxygen Saturation - - Inhaled Oxygen Concentration - - Weight 74.4 kg (164 lb 0.4 oz) 12/02/2014 1:54 PM EDITORIAL SPECIALIST Height 152 cm (4' 11.84) 12/02/2014 1:54 PM EDITORIAL SPECIALIST Body Mass Index 32.2 12/02/2014 1:54 PM EDITORIAL SPECIALIST documented in this encounter Progress Notes Narinder Enriquez M.D. - 12/02/2014 1:39 PM CST [id number] CHIEF COMPLAINT/REASON FOR VISIT OB. HISTORY OF PRESENT ILLNESS This patient is a 29-year-old, G6, P3-0-2-3 female with LMP of 05/18/2014 and EDC of 02/22/2015 at 28 and 3/7 weeks. She presents for OB visit. She is doing well. She has no complaints. She reports good movement. No leaking of fluid or vaginal bleeding. No cramping or contractions. No pelvic pressure. No headaches or vision changes. No depression symptoms. No difficulty urinating. Her right-sided pain has resolved. ALLERGIES No known drug allergies. MEDICATIONS 1. Generic vitamins. 2. Tylenol #3 as needed. PAST MEDICAL/SURGICAL HISTORY PAST MEDICAL HISTORY: 1. History of tobacco abuse. Quit 07/28/2014. 2. History depression. 3. History of bipolar disorder. 4. History of cervical dysplasia 2005. 5. History of polycystic ovarian syndrome. 6. Right-sided musculoskeletal pain. PAST SURGICAL HISTORY: 1. Laparoscopic appendectomy, 2012. 2. LEEP procedure 2005. PAST OBSTETRICAL HISTORY: 1. Vaginal delivery 02/10/2002. 2. Vaginal delivery 08/16/2008. 3. Vaginal delivery 11/06/2010. 4. Miscarriage 2004. 5. Miscarriage 2005. VITAL SIGNS Weight 74.4 kg, height 152 cm, blood pressure 112/62, pulse 68. PHYSICAL EXAMINATION GENERAL: Well-developed, well-nourished, gravid female in no apparent distress. Alert and oriented x3. ABDOMEN: Gravid, soft, nontender. Positive bowel sounds. Fundal height 28 cm. Positive heart tones, 148. Vertex presentation by [place]. EXTREMITIES: No clubbing, cyanosis, or edema. Nontender bilaterally. GENITALIA: Deferred. DIAGNOSTICS Lab 12/02/2014: Diabetic screen 170, hemoglobin 10.8. IMPRESSION/REPORT/PLAN 1. Intrauterine at 28 and 3/7 weeks. Positive cardiac activity. 2. Elevated diabetic screen. PLAN: 1. The patient's right-sided musculoskeletal pain has resolved. 2. I discussed the patient's labs today. Her diabetic screen is elevated at 170. Her hemoglobin is 10.8. 3. I recommend checking a 3-hour glucose tolerance test. The patient reports that her glucose tolerance tests were elevated with each of her prior pregnancies and she had normal 3-hour glucose tolerance tests. She understands what to do for a glucose tolerance test. The patient is asked to go to the front to have this scheduled. She will be nothing by mouth for thetest. 4. I encouraged the patient to take iron and increase protein in her diet due to her anemia. 5. I would like the patient to come back in 2 weeks for OB visit or be seen sooner as needed. 6. Routine OB precautions, recommendations, instructions are reviewed with the patient including movement and kick counts. Narinder Enriquez M.D./cristiano Electronically Signed By: NARINDER ENRIQUEZ MD On: 12/02/2014 04:52 PM Source: [facility] MHSDOLBEYNONRADSYS Document Id: [id number] ORIAL SPECIALIST documented in this encounter Procedure Notes Susana Morgan, ToP.N. - 12/02/2014 1:53 PM CST Glucose 1 Hr OB POC Glucose 1 Hr OB POC Entered On: 12/02/2014 13:53 EDITORIAL SPECIALIST Performed On: 12/02/2014 13:53 EDITORIAL SPECIALIST by SUSANA MORGAN LPN Glucose 1 Hr OB POC Glucose 1 Hr OB POC Result : 170 mg/dL (NC) Site : Finger, Right SUSANA MORGAN LPN - 12/02/2014 13:53 EDITORIAL SPECIALIST [facility] unlimited Document Id: [id number] EDITORIAL SPECIALIST!4 ORIAL SPECIALIST Susana Morgan L.P.N. - 12/02/2014 1:53 PM CST Hemoglobin POC Hemoglobin POC Entered On: 12/02/2014 13:53 EDITORIAL SPECIALIST Performed On: 12/02/2014 13:53 EDITORIAL SPECIALIST by SUSANA MORGAN LPN Hemoglobin POC Hgb POC : 10.8 gm/dL (LOW) Site : Finger, Right Internal QC : Pass SUSANA MORGAN LPN - 12/02/2014 13:53 EDITORIAL SPECIALIST [facility] unlimited Document Id: [id number] EDITORIAL SPECIALIST!5 ORIAL SPECIALIST documented in this encounter Miscellaneous Notes Telephone Encounter - Narinder Enriquez M.D. - 12/16/2014 12:00 AM CST [id number] Ms. Ng no-showed her appointment in the [facility] today. Narinder Enriquez M.D./cristiano Electronically Signed By: NARINDER ENRIQUEZ MD On: 12/19/2014 11:32 AM Source: [facility] MHSDOLBEYNONRADSYS Document Id: [id number] ORIAL SPECIALIST Miscellaneous - Narinder Enriquez M.D. - 12/02/2014 2:00 PM CST Ambulatory Patient Summary [address] [id number] Visit Information Name: SAMUEL NG [facility] Number: [id number] Current Date: 12/02/2014 14:00:29 Physicians Attending Provider: NARINDER ENRIQUEZ MD Primary [...] Take Indications/Special Instructions/Comments/Notes for Patient Medication Changes/Routing acetaminophen-codeine (acetaminophen-codeine 300 mg-30 mg oral tablet) 1 Tablet(s), Oral, every 6 hours lidocaine topical (Lidoderm 5% topical film) 1 patch(es), Topical, once a day multivitamin, ( Multivitamins with Folic Acid 1 mg oral capsule) 1 cap, Oral, once a day Stop Taking the Following Medications: Medication list as of 12-02-14 14:00 Attention: If you have any medications at [...] Electronically Signed By: NARINDER ENRIQUEZ MD Signed On:02-DEC-2014 14:00:25 Your Allergies & Intolerances Substance Reaction Symptoms Category Comments No Known Allergies Drug Your Problem List Problem Status Onset Comments Tobacco Use Disorder Active 04/02/2010 Bipolar disorder, depressed Active Polycystic ovarian disease Active Personal History of Cervical Dysplasia Active 10/03/2006 Depressive disorder, major, recurrent episode Active Normal Preg Not First 1st Preg Active 06/29/2014 Headache (PAGAN) Tension Chronic Active Pain Musculoskeletal Active Your Upcoming Appointments Date Time Location Provider 12/05/2014 08:30 [facility] Lab Attention: Contact your local Clinic if further appointment detail needed. Your Goals/Additional instructions: Source: [facility] POWERCHART Document Id: [id number] ORIAL SPECIALIST Miscellaneous - Narinder Enriquez M.D. - 12/02/2014 2:00 PM CST Ambulatory Discharge Medication List [address] [id number] Visit Information Name: SAMUEL NG [facility] Number: [id number] Visit Date: 12/02/2014 14:00:28 Attending Provider: NARINDER ENRIQUEZ MD Primary Care [...] Take Indications/Special Instructions/Comments/Notes for Patient Medication Changes/Routing acetaminophen-codeine (acetaminophen-codeine 300 mg-30 mg oral tablet) 1 Tablet(s), Oral, every 6 hours lidocaine topical (Lidoderm 5% topical film) 1 patch(es), Topical, once a day multivitamin, ( Multivitamins with Folic Acid 1 mg oral capsule) 1 cap, Oral, once a day Stop Taking the Following Medications: Medication list as of 12-02-14 14:00 Attention: If you have any medications at [...] Electronically Signed By: NARINDER ENRIQUEZ MD Signed On:02-DEC-2014 14:00:25 Additional Information: Source: [facility] POWERCHART Document Id: [id number] ORIAL SPECIALIST Miscellaneous - Susana Morgan, L.P.N. - 12/02/2014 1:54 PM CST Adult Binitrotoluene Operator Intake/History Adult Binitrotoluene Operator Intake/History Entered On: 12/02/2014 13:54 EDITORIAL SPECIALIST Performed On: 12/02/2014 13:54 EDITORIAL SPECIALIST by SUSANA MORGAN LPN Intake Chief Complaint : Ob visit 28 3/7 weeks LMP Date : 05/18/14 Systolic Blood Pressure : 112 mmHg Diastolic Blood Pressure : 62 mmHg NIBP Mean : 79 mmHg BP Location : Right upper extremity Blood Pressure Cuff Size : Regular Height : 152 cm(Converted to: 5 ft 0 inch(es), 60 inch(es)) Actual Weight : 74.4 kg(Converted to: 164 lb 0 oz) Weight Source : Standing scale Dosing Weight Clinic : 74.4 kg Clinic BSA : 1.77 Body Mass Index : 32.2 kg/m2 SUSANA MORGAN [facility] - 12/02/2014 13:54 EDITORIAL SPECIALIST General Info Information Given By : Patient Languages : Italian Is Patient Female and 13-50 no hysterectomy : Yes Status : Confirmed positive Are you ? : No SUSANA MORGAN [facility] - 12/02/2014 13:54 EDITORIAL SPECIALIST Subjective Pain Symptoms : No SUSANA MORGAN [facility] 12/02/2014 13:54 EDITORIAL SPECIALIST Dependent Habits Tobacco Use/Currently Using : Yes Exposure to Tobacco Smoke : Patient smokes Smoking Status : Current every day smoker SUSANA MORGAN [facility] - 12/02/2014 13:54 EDITORIAL SPECIALIST Tobacco Use Grid Type : Cigarettes Cigarette Use Packs/Day : 0.2 SUSANA MORGAN LPN - 12/02/2014 13:54 EDITORIAL SPECIALIST Caffeine Use Grid Caffeine Use : None SUSANA MORGAN [facility] - 12/02/2014 13:54 EDITORIAL SPECIALIST Recreational Drug Use Grid Drug Use : None SUSANA MORGAN [facility] 12/02/2014 13:54 EDITORIAL SPECIALIST ID Screen Drug Resistant Organism : No Travel Within Last 21 Days : No SUSANA MORGAN LPN 12/02/2014 13:54 EDITORIAL SPECIALIST Source: [facility] POWERCHART Document Id: [id number] EDITORIAL SPECIALIST!40 ORIAL SPECIALIST documented in this encounter Plan of Treatment Upcoming Encounters Date Type Specialty Care Team Description 08/30/2022 Clinical Communication Admitting/Central Scheduling 09/02/2022 Comprehensive Visit Endocrinology Ricardo Winkler APRN, C.N.P., D.N.P. [address] [place] [address] documented as of this encounter Procedures Procedure Name Priority Date/Time Associated Comments Diagnosis HX GLUCOSE 1 HR OB Routine 12/02/2014 1:53 PM Res ults for this POC RESULT EDITORIAL SPECIALIST procedure are i n the results section. HEMOGLOBIN (HGB), Routine 12/02/2014 1:53 PM Resu lts for this POCT, B EDITORIAL SPECIALIST procedure are i n the results section. documented in this encounter Results (ABNORMAL) HX GLUCOSE 1 HR OB POC RESULT (12/02/2014 1:53 PM EDITORIAL SPECIALIST) P athologist Signature HX Glucose 1 170 (H) 79.00 - POWERCHART Hr Ob 139.00 MGDL Specimen (Source) Anatomical Collection Method Collection Time Re ceived Time Location / / Volume Laterality 12/02/2014 1:53 PM EDITORIAL SPECIALIST Narinder Enriquez M.D. LAB HISTORICAL ORDERS Performing Organization Address [facility] Code Phon e Number POWERCHART (ABNORMAL) Hemoglobin (HGB), POCT (12/02/2014 1:53 PM EDITORIAL SPECIALIST) P athologist Signature Hemoglobin 10.8 (L) 12.0 - 15.5 POWERCHART GMDL Specimen (Source) Anatomical Collection Method Collection Time Re ceived Time Location / / Volume Laterality 12/02/2014 1:53 PM EDITORIAL SPECIALIST Narinder Enriquez M.D. LAB POCT ORDERABLES - DEVICE Performing Organization Address [facility] Phon e Number POWERCHART documented in this encounter Visit Diagnoses Not on filedocumented in this encounter Additional Health Concerns Assessment Noted Time PHQ-9 Depression Total Score: 22 10/04/2013 2:31 PM CS T documented as of this encounter
--- OUTSIDE RECORDS SUMMARY | 2022-08-16 21:33 | XMS_ITS | Encounter Summary ---
:1985 Author Organization [facility] Address [address] [place] [address] Care Team Providers Name Role Phone Unavailable Primary Care Provider Unavailable Encounter Details Date Type Department Care Team Description 01/13/2015 Hospital Encounter HX [facility] FAMILYPRA Karen Dial i, M.D. [address] [place] [address] (Wo rk) Social History Tobacco Use Types [...] or relatives? How often do you attend yazdanism or Never 2021 shinto services? Do you belong to any clubs or No 01/25/2022 organizations such as yazdanism groups, unions, fraternal or athletic groups, or [...] Sign Reading Time Taken Comments Blood Pressure 100/64 01/13/2015 3:28 PM TICKET MAKER Pulse 100 01/13/2015 3:28 PM TICKET MAKER Temperature - - Respiratory Rate - - Oxygen Saturation - - Inhaled Oxygen Concentration - - Weight 75 kg (165 lb 5.5 oz) 01/13/2015 3:28 PM TICKET MAKER Height 152 cm (4' 11.84) 01/13/2015 3:28 PM TICKET MAKER Body Mass Index 32.46 01/13/2015 3:28 PM TICKET MAKER documented in this encounter Progress Notes Karen Steinberg M.D. - 01/13/2015 3:18 PM CST [id number] CHIEF COMPLAINT/ REASON FOR VISIT Cat bite HISTORY OF PRESENT ILLNESS Keily is a 29-year-old female who presents to the clinic today for a cat bite. This was her own petcat at the vets office today. Cat was at the Vets office getting routine vaccines when it became scared and bit Keily. She was bit by her cat today on her right arm. She flushed the area immediately. Her cat is up to date on vaccinations. The patient denies any additional questions or concerns at this time. MEDICATIONS Post-visit Medication Reconciliation Reviewed and are as outlined in the EMR including 1. Augmentin 500mg-125mg oral tablet 1 tablet by mouth, three times daily, for ten days ALLERGIES No known allergies. SYSTEMS REVIEW See HPI. PAST MEDICAL/SURGICAL HISTORY PAST MEDICAL HISTORY: 1. Right rib musculoskeletal pain and discomfort. 2. History of tobacco abuse, quit 2013. 3. History of depression. 4. History of bipolar disorder. 5. History of cervical dysplasia in 2005. 6. History of polycystic ovarian syndrome. 7. Gestational diabetes, diet controlled PAST SURGICAL HISTORY: 1. Laparoscopic appendectomy in 2012. 2. LEEP procedure, 2005. PAST OBSTETRICAL HISTORY: 1. Vaginal delivery, 02/10/2002. 2. Vaginal delivery, 08/16/2008. 3. Vaginal delivery, 11/06/2010. 4. Miscarriage, 2004. 5. Miscarriage, 2006. PREVENTIVE SERVICES Tobacco use: None VITAL SIGNS HEIGHT: 152 cm. WEIGHT: 75 kg. BMI: 32.46 kg/m2. TEMP: 36.2 Deg C. PULSE: 100 /min. SYSTOLIC: 100 mmHg. DIASTOLIC: 64 mmHg. PHYSICAL EXAMINATION GENERAL: Patient is alert and oriented times three, in no acute distress, good hygiene and is dressed appropriately. EXTREMITIES: Within normal limits. SKIN: Four puncture wounds in a parallelogram shape on the dorsal aspect of the right fore arm. These are cleans with Hibiclens and rinsed with water and tiny pieces of fuzzy black cat hair are removedfrom two of these wounds. The wounds are dressed with antibiotic ointment and Telfa. IMPRESSION/REPORT/PLAN 1. Cat bite. This was a provoked bite by her pet cat and I see no reason to involved law enforcement. The area is cleansed and dressed as above and she is instructed to cleanse and dress the area twicedaily. I have prescribed Augmentin as above. She will update the clinic on Friday. 2. Follow up: The patient will contact the clinic with any new or worsening symptoms. This document serves as a record of services personally performed by Karen Baltazar MD. It was created on their behalf by Lacey Luz, a trained medical officer. The creation of this record is based on the scribe's personal observations and the provider's statements to them. This document has been matilda cked and approved by the attending provider. Karen Cole M.D./amy Electronically Signed By: KAREN STEINBERG MD On: 01/27/2015 08:41 AM Source: [facility] MHSDOLBEYNONRADSYS Document Id: [id number] ET MAKER documented in this encounter Miscellaneous Notes Miscellaneous - Karen Steinberg M.D. - 01/14/2015 12:27 AM TICKET MAKER Ambulatory Patient Summary [address] [id number] Visit Information Name: ANYA KEILYCRISTHIAN TURPIN [facility] Number: [id number] Current Date: 01/14/2015 00:27:37 Physicians Attending Provider: KAREN STEINBERG MD Primary Care Provider: KAREN STEINBERG MD KEILY NG has been given the [...] Oral, three times a day x10 day(s) New Routed to [address] [address] multivitamin, ( Multivitamins with Folic Acid 1 mg oral capsule) 1 cap, Oral, once a day Stop Taking the Following Medications: Medication list as of 01-14-15 00:27 Attention: If you have any medications at home that are not on this list, DO NOT take them until youcontact your provider for clarification. Give a copy of your medication list to your primary care provider. Update your medication list any time medications or doses are changed and carry your medication list at all times in case of emergency. Electronically Signed By: KAREN STEINBERG MD Signed On:14-JAN-2015 00:27:28 Your Allergies & Intolerances Substance Reaction Symptoms [...] Date Time Location Provider 01/19/2015 14:00 [facility] PRE PRESS PROOFER Mina GALLARDO, Jhonny Dockery Attention: Contact your local Clinic if further appointment detail needed. Your Goals/Additional instructions: Source: [facility] POWERCHART Document Id: [id number] ET MAKER Miscellaneous - Karen Steinberg M.D. - 01/14/2015 12:27 AM TICKET MAKER Ambulatory Discharge Medication List [address] [id number] Visit Information Name: KEILY NG [facility] Number: [id number] Visit Date: 01/14/2015 00:27:35 Attending Provider: KAREN STEINBERG MD Primary Care Provider: KAREN STEINBERG MD KEILY NG has been given the [...] Oral, three times a day x10 day(s) New Routed to [facility] [address] [place], [place] [id number] multivitamin, ( Multivitamins with Folic Acid 1 mg oral capsule) 1 cap, Oral, once a day Stop Taking the Following Medications: Medication list as of 01-14-15 00:27 Attention: If you have any medications at home that are not on this list, DO NOT take them until youcontact your provider for clarification. Give a copy of your medication list to your primary care provider. Update your medication list any time medications or doses are changed and carry your medication list at all times in case of emergency. 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 Intake/History Entered On: 01/13/2015 15:30 TICKET MAKER Performed On: 01/13/2015 15:28 TICKET MAKER by LEORA MALONEY LPN Intake Chief Complaint : landen bite right forearm Temperature Core : 36.2 DegC(Converted to: 97.2 DegF) (LOW) Peripheral Pulse Rate : 100 /min Systolic Blood Pressure : 100 mmHg Diastolic Blood Pressure : 64 mmHg NIBP Mean : 76 mmHg BP Location : Left upper extremity Blood Pressure Cuff Size : Regular Height : 152 cm(Converted to: 5 ft 0 inch(es), 60 inch(es)) Actual Weight : 75 kg(Converted to: 165 lb 6 oz) Dosing Weight Clinic : 75 kg Clinic BSA : 1.78 Body Mass Index : 32.46 kg/m2 LEORA MALONEY LPN - 01/13/2015 15:28 TICKET MAKER General Info Information Given By : Patient Languages : Portuguese Is Patient Female and 13-50 no hysterectomy : No LEORA MALONEY LPN - 01/13/2015 15:28 TICKET MAKER Subjective Pain Symptoms : Yes LEORA MALONEY LPN - 01/13/2015 15:28 TICKET MAKER Pain Scale Pain Scale Verbal 0-10 : Open LEORA MALONEY LPN - 01/13/2015 15:28 TICKET MAKER Pain Pain Assessment Grid Pain 1 Location : Lower arm Laterality : Right LEORA MALONEY LPN - 01/13/2015 15:28 TICKET MAKER Dependent Habits Tobacco Use/Currently Using : No Exposure to Tobacco Smoke : Patient smokes Smoking Status : Former smoker LEORA MALONEY [facility] - 01/13/2015 15:28 TICKET MAKER Tobacco Use Grid Type : Cigarettes Last Use : 07/07 LEORA MALONEY [facility] - 01/13/2015 15:28 TICKET MAKER Caffeine Use Grid Caffeine Use : None LEORA MALONEY [facility] - 01/13/2015 15:28 TICKET MAKER Recreational Drug Use Grid Drug Use : None LEORA MALONEY [facility] - 01/13/2015 15:28 TICKET MAKER ID Screen Drug Resistant Organism : No Travel Within Last 21 Days : No LEORA MALONEY [facility] - 01/13/2015 15:28 TICKET MAKER [facility] Document Id: [id number] TICKET MAKER!45 documented in this encounter Plan of Treatment Upcoming Encounters Date Type Specialty Care Team Description 08/30/2022 Clinical Communication Admitting/Central Scheduling 09/02/2022 Comprehensive Visit Endocrinology Ricardo Winkler APRN, C.N.P., D.N.P. [address] [place] [address] documented as of this encounter Visit Diagnoses Not on filedocumented in this encounter Additional Health Concerns Assessment Noted Time PHQ-9 Depression Total Score: 22 10/04/2013 2:31 PM CS T documented as of this encounter
--- OUTSIDE RECORDS SUMMARY | 2022-08-16 21:33 | XMS_ITS | Encounter Summary ---
:1985 Author Organization [facility] Address [address] [place] [address] Care Team Providers Name Role Phone Unavailable Primary Care Provider Unavailable Encounter Details Date Type Department Care Team Description 12/29/2014 Hospital Encounter HX NO MAPPING Jhonny Enriquez [...] do you attend mormonism or Never 2021 mu-ism services? Do you belong to any clubs [...] Ricardo Winkler APRN, C.N.P., D.N.P. [address] [place] [address] documented as of this encounter Visit Diagnoses Not on filedocumented in this encounter Additional Health Concerns Assessment Noted Time PHQ-9 Depression Total Score: 22 10/04/2013 2:31 PM CS T documented as of this encounter
--- OUTSIDE RECORDS SUMMARY | 2022-08-16 21:33 | XMS_ITS | Encounter Summary ---
:1985 Author Organization [facility] Address [address] [place] [address] Care Team Providers Name Role Phone Unavailable Primary Care Provider Unavailable Encounter Details Date Type Department Care Team Description 10/31/2014 Hospital Encounter HX [facility] Kulwinder Solano P.A.-C. [address] [place] [address] (Wo rk) Social History Tobacco Use Types [...] do you attend hinduism or Never 2021 mandaen services? Do you belong to any clubs [...] Sign Reading Time Taken Comments Blood Pressure 84/48 10/31/2014 3:15 PM PHOTOGRAPHIC SPOTTER Pulse 100 10/31/2014 3:15 PM PHOTOGRAPHIC SPOTTER Temperature - - Respiratory Rate 16 10/31/2014 3:15 PM PHOTOGRAPHIC SPOTTER Oxygen Saturation - - Inhaled Oxygen Concentration - - Weight 72 kg (158 lb 11.7 oz) 10/31/2014 3:15 PM PHOTOGRAPHIC SPOTTER Height 152 cm (4' 11.84) 10/31/2014 3:15 PM PHOTOGRAPHIC SPOTTER Body Mass Index 31.16 10/31/2014 3:15 PM PHOTOGRAPHIC SPOTTER documented in this encounter Progress Notes Svetlana Solano P.A.-C. - 10/31/2014 3:09 PM CST [id number] CHIEF COMPLAINT/REASON FOR VISIT Rash. HISTORY OF PRESENT ILLNESS Keily is a 29-year-old female who is in the 2nd trimester of her . She developed a rash onher flank area and also on her arms. She says it has been itchy over the last week or 2. She has tried some Vaseline which has not really given her much benefit. She was going to try some Cetaphil lotion. She is not really sure what the etiology of this rash is. She otherwise has felt well. PHYSICAL EXAMINATION VITAL SIGNS: Noted in EMR. GENERAL: She appears in no acute distress. ENT: Her throat has no erythema. I did obtain a rapid strep screen today that was negative. HEART: Regular rate and rhythm. No murmurs. LUNGS: Clear to auscultation. SKIN: A slightly raised rash along her flank on the right side, and also a little bit on her right arm. It almost has a scarlatina like feel so I did do a strep screen that was negative reassuringly. IMPRESSION/REPORT/PLAN Rash. We talked about the potential etiologies of this. Certainly it could be just eczema given the fact it is winter time. It could be also PUPPP, but this does not usually occur until later in the and it does not really have a papular appearance. I think most likely this is eczema. I am going to give her some hydrocortisone 1% cream to apply to the affected area up to 3 times a day. She will let us know if her symptoms worsen or do not improve with this therapy and otherwise I will have her follow up as scheduled with Dr. Enriquez. Total time spent today with the patient was 25 minutes, the majority of it in coordination of care and counseling. Svetlana Solano PA-C/cristiano Electronically Signed By: SVETLANA SOLANO PA-C On: 11/02/2014 09:21 AM Source: [facility] MHSDOLBEYNONRADSYS Document Id: [id number] OGRAPHIC SPOTTER documented in this encounter Miscellaneous Notes Telephone Encounter - Conversion, Historical Provider Ser - 11/15/2014 11:33 AM CST *Phone Message Document Contains Addenda Addendum by LUIS LEGGETT on 15 November 2014 17:10:06 PHOTOGRAPHIC SPOTTER Patient was called and notified, then transferred to scheduling to assist in making appt. Addendum by KAREN BALTAZAR MD on 15 November 2014 17:01:20 PHOTOGRAPHIC SPOTTER From: KAREN BALTAZAR MD To: Delaney Nurse; Sent: 11/15/2014 17:01:20 PHOTOGRAPHIC SPOTTER Subject: RE: *Phone Message Have her come in to discuss Addendum by DARYL BORJAS on 15 November 2014 11:42:45 PHOTOGRAPHIC SPOTTER From: DARYL BORJAS (EMMANUEL Baltazar Nurse) To: KAREN BALTAZAR MD; Sent: 11/15/2014 11:42:45 PHOTOGRAPHIC SPOTTER Subject: FW: *Phone Message From: ELISSA ANTONIO (EMMANUEL Baltazar Nurse) To: EMMANUEL Baltazar Nurse; Sent: 11/15/2014 11:33:43 PHOTOGRAPHIC SPOTTER Subject: *Phone Message Caller is: ( x ) Patient ( ) Mother ( ) Father ( ) Spouse ( ) Daughter ( ) Son ( ) Pharmacy ( ) Other: Physician: Patient MRN #: Reason for Call: Message: s: patient called to talk to nurse b: she was in ER for pain in her rib area - she was told to go home and take pain meds - she thinks it is her gall bladder - wants to talk to you - (she is so also left a note for her OB provider) a: wants call back r: [phone] Advice/Action: Source used: ( ) Verbalizes understanding [...] back cell phone number ( ) Source: [facility] [email or web address] Document Id: [id number] Miscellaneous - Svetlana Solano PLucy - 10/31/2014 4:13 PM CST Ambulatory Patient Summary [address] [id number] Visit Information Name: KEILY NG [facility] Number: [id number] Current Date: 10/31/2014 16:13:26 Physicians Attending Provider: SVETLANA SOLANO PA-C Primary Care Provider: KAREN BALTAZAR MD KEILY NG has been given the [...] Take Indications/Special Instructions/Comments/Notes for Patient Medication Changes/Routing hydrocortisone topical (hydrocortisone 1% topical cream) 1 joel, Topical, three times a day x 7 day(s) New Routed to [facility] [address] [place] [address] multivitamin, ( Multivitamins with Folic Acid 1 mg oral capsule) 1 cap, Oral, once a day Stop Taking the Following Medications: Medication list as of 10-31-14 16:13 Attention: If you have any medications at home that are not on this list, DO NOT take them until youcontact your provider for clarification. Give a copy of your medication list to your primary care provider. Update your medication list any time medications or doses are changed and carry your medication list at all times in case of emergency. Electronically Signed By: SVETLANA SOLANO PA-C Signed On:31-OCT-2014 16:13:23 Your Allergies & Intolerances Substance Reaction Symptoms Category Comments No Known Allergies Drug Your Problem List Problem Status Onset Comments Tobacco Use Disorder Active 04/02/2010 Bipolar disorder, depressed Active Polycystic ovarian disease Active Personal History of Cervical Dysplasia Active 10/03/2006 Depressive disorder, major, recurrent episode Active Normal Preg Not First 1st Preg Active 06/29/2014 Headache (PAGAN) Tension Chronic Active Your Upcoming Appointments Date Time Location Provider 11/07/2014 11:00 [facility] 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 Your Goals/Additional instructions: Source: [facility] POWERCHART Document Id: [id number] OGRAPHIC SPOTTER Miscellaneous - Svetlana Solano P.A.-C. - 10/31/2014 4:13 PM CST Ambulatory Discharge Medication List [address] [id number] Visit Information Name: KEILY NG [facility] Number: [id number] Visit Date: 10/31/2014 16:13:25 Attending Provider: SVETLANA SOLANO PA-C Primary Care Provider: KAREN BALTAZAR MD KEILY NG has been given the following list of medications: Your Medications It is important to take your medications as directed. Use a pill box or chart to help remind you to take your medications. Please let your doctor or nurse know if you have problems taking your medications. Medication/Strength How to Take Indications/Special Instructions/Comments/Notes for Patient Medication Changes/Routing hydrocortisone topical (hydrocortisone 1% topical cream) 1 joel, Topical, three times a day x 7 day(s) New Routed to [address] [address] multivitamin, ( Multivitamins with Folic Acid 1 mg oral capsule) 1 cap, Oral, once a day Stop Taking the Following Medications: Medication list as of 10-31-14 16:13 Attention: If you have any medications at home that are not on this list, DO NOT take them until youcontact your provider for clarification. Give a copy of your medication list to your primary care provider. Update your medication list any time medications or doses are changed and carry your medication list at all times in case of emergency. Electronically Signed By: SVETLANA SOLANO PA-C Signed On:31-OCT-2014 16:13:23 Additional Information: Source: [facility] POWERCHART Document Id: [id number] OGRAPHIC SPOTTER Miscellaneous - Pretty Shaver, L.P.N. - 10/31/2014 3:15 PM CST Adult Pointer Machine Operator Intake/History Adult Pointer Machine Operator Intake/History Entered On: 10/31/2014 15:19 PHOTOGRAPHIC SPOTTER Performed On: 10/31/2014 15:15 PHOTOGRAPHIC SPOTTER by PRETTY SHAVER Intake Chief Complaint : under belly itchy rash for past 5 days Temperature Core : 36.5 DegC(Converted to: 97.7 DegF) Peripheral Pulse Rate : 100 /min Respiratory Rate : 16 /min Systolic Blood Pressure : 84 mmHg (<LLOW) Diastolic Blood Pressure : 48 mmHg (<LLOW) NIBP Mean : 60 mmHg BP Location : Right upper extremity Blood Pressure Cuff Size : Large Height : 152 cm(Converted to: 5 ft 0 inch(es), 60 inch(es)) Actual Weight : 72 kg(Converted to: 158 lb 12 oz) Weight Source : Standing scale Dosing Weight Clinic : 72 kg Clinic BSA : 1.74 Body Mass Index : 31.16 kg/m2 PRETTY SHAVER 10/31/2014 15:15 PHOTOGRAPHIC SPOTTER General Info Information Given By : Patient Languages : Czech Is Patient Female and 13-50 no hysterectomy : No PRETTY SHAVER 10/31/2014 15:15 PHOTOGRAPHIC SPOTTER Subjective Pain Symptoms : Yes PRETTY SHAVER 10/31/2014 15:15 PHOTOGRAPHIC SPOTTER Pain Pain Assessment Grid Pain 1 Location : Other: itchiness glez PRETTY SHAVER 10/31/2014 15:15 PHOTOGRAPHIC SPOTTER Dependent Habits Tobacco Use/Currently Using : No Exposure to Tobacco Smoke : Patient smokes Smoking Status : Former smoker PRETTY SHAVER 10/31/2014 15:15 PHOTOGRAPHIC SPOTTER Tobacco Use Grid Type : Cigarettes Cigarette Use Packs/Day : 0.2 PRETTY SHAVER 10/31/2014 15:15 PHOTOGRAPHIC SPOTTER Caffeine Use Grid Caffeine Use : None PRETTY SHAVER 10/31/2014 15:15 PHOTOGRAPHIC SPOTTER Recreational Drug Use Grid Drug Use : None PRTETY SHAVER 10/31/2014 15:15 PHOTOGRAPHIC SPOTTER ID Screen Drug Resistant Organism : No Travel Within Last 21 Days : No PRETTY SHAVER 10/31/2014 15:15 PHOTOGRAPHIC SPOTTER Source: [facility] POWERCH[facility] Document Id: [id number] PHOTOGRAPHIC SPOTTER!44 OGRAPHIC SPOTTER documented in this encounter Plan of Treatment Upcoming Encounters Date Type Specialty Care Team Description 08/30/2022 Clinical Communication Admitting/Central Scheduling 09/02/2022 Comprehensive Visit Endocrinology Ricardo Winkler APRN, C.N.P., D.N.P. [address] [place] [address] [place] [address] documented as of this encounter Procedures Procedure Name Priority Date/Time Associated Diagnosis Comme nts RAPID STREP A Routine 10/31/2014 3:54 PM Results for this SCREEN PHOTOGRAPHIC SPOTTER procedure are i n the results section. RAPID STREP A Routine 10/31/2014 3:54 PM Results for this SCREEN PHOTOGRAPHIC SPOTTER procedure are i n the results section. documented in this encounter Results Rapid Strep A Screen (10/31/2014 3:54 PM PHOTOGRAPHIC SPOTTER) SeoPult Method Time Signature HXRapid Strep POWERCHART Confirmation HXPre Negative for POWERCHART Group A Strep by culture. HXFinal Negative for POWERCHART Group A Strep by culture. Specimen Anatomical Collection Method Collection Time Receive d Time (Source) Location / / Volume Laterality Throat 10/31/2014 3:54 PM 4 3:54 PHOTOGRAPHIC SPOTTER PM PHOTOGRAPHIC SPOTTER Svetlana Solano P.A.-C. LAB MICROBIOLOGY - GENERAL O R[place]AMAXWELL Performing Organization Address City/State/[facility] Code Phon e Number POWERCHART Rapid Strep A Screen (10/31/2014 3:54 PM PHOTOGRAPHIC SPOTTER) SeoPult Method Time Signature HXStrep A POWERCHART Screen Rapid HXFinal Negative for POWERCHART Strep Group A by rapid screen. HXFinal Culture POWERCHART confirmation to follow. Specimen (Source) Anatomical Collection Method Collection Time Re ceived Time Location / / Volume Laterality Throat 10/31/2014 3:54 PM PHOTOGRAPHIC SPOTTER Svetlana Solano P.A.-C. LAB MICROBIOLOGY - GENERAL O [place] Performing Organization Address City/State/[facility] Code Phon e Number POWERCHART documented in this encounter Visit Diagnoses Not on filedocumented in this encounter Additional Health Concerns Assessment Noted Time PHQ-9 Depression Total Score: 22 10/04/2013 2:31 PM CS T documented as of this encounter
--- OUTSIDE RECORDS SUMMARY | 2022-08-16 21:33 | XMS_ITS | Encounter Summary ---
:1985 Author Organization [facility] Address [address] [place] [address] Care Team Providers Name Role Phone Unavailable Primary Care Provider Unavailable Encounter Details Date Type Department Care Team Description 02/13/2015 Hospital Encounter HX [facility] Narinder De [...] do you attend scientologist or Never 2021 faith services? Do you belong to any clubs [...] Reading Time Taken Comments Blood Pressure 96/62 02/13/2015 8:52 AM CDT Pulse - - Temperature - - Respiratory Rate - - Oxygen Saturation - - Inhaled Oxygen Concentration - - Weight 76.3 kg (168 lb 3.4 oz) 02/13/2015 8:52 AM CDT Height 152 cm (4' 11.84) 02/13/2015 8:52 AM CDT Body Mass Index 33.02 02/13/2015 8:52 AM CDT documented in this encounter Progress Notes Narinder Enriquez M.D. - 02/13/2015 8:48 AM CDT [id number] CHIEF COMPLAINT/REASON FOR VISIT OB. HISTORY OF PRESENT ILLNESS This patient is a 29-year-old, G6, P3-0-2-3 female with LMP of 05/18/2014 and EDC of 02/22/2015 at 38-6/7 weeks. Patient presents for OB visit. She has complicated by gestational diabetes. She has migraine headaches. She has a history of depression but is asymptomatic off medication. She hashistory of PCOS, is asymptomatic off medication. She is a former smoker and quit in 2013. The patient requests induction of labor. She is very uncomfortable. She is having irregular uterine contractions that are worse at the end of the day. She has pelvic pressure that is worse with standing and at the end of the day. She is having a hard time walking due to waddling. She is having low back pain and pressure due to the head pushing down. She reports good movement. No leaking of fluid or vaginal bleeding. No headaches or vision changes. No depression symptoms. No fevers or chills. The patient has gestational diabetes. She reports following an ADA diet. She did not bring in Accu-Cheks for review today. She reports that her blood sugars look good. ALLERGIES No known drug allergies. MEDICATIONS 1. Generic vitamins. 2. Tylenol #3 as needed. 3. Lidocaine topical gel as needed. PAST MEDICAL/SURGICAL HISTORY PAST MEDICAL HISTORY: 1. Right rib musculoskeletal pain and discomfort, now asymptomatic. 2. History of tobacco abuse, quit 2013. 3. History depression/bipolar disorder, currently asymptomatic. 4. History of cervical dysplasia, 2005. 5. History of polycystic ovarian syndrome, currently asymptomatic. PAST SURGICAL HISTORY: 1. Laparoscopic appendectomy, 2012. 2. LEEP procedure, 2005. PAST OBSTETRICAL HISTORY: 1. Vaginal delivery, 02/10/2002. 2. Vaginal delivery, 08/16/2008. 3. Vaginal delivery. 11/06/2010. 4. Miscarriage, 2004. 5. Miscarriage, 2005. VITAL SIGNS Weight 76.3 kg, height 152 cm. Blood pressure 96/62, pulse 70. PHYSICAL EXAMINATION GENERAL: Well-developed, well-nourished, gravid female in no apparent distress. Alert and oriented x3. ABDOMEN: Soft, gravid, nontender. Positive bowel sounds. Fundal height 39 cm. Positive heart tones, 140. Vertex presentation by Ky's. EXTREMITIES: No clubbing, cyanosis, or edema. Nontender bilaterally. GENITALIA: Cervix is 2 to 3 cm dilated, 1 cm thick, 0 station. Soft and anterior. This gives a Rodriguez score of 10. DIAGNOSTIC STUDIES 01/26/2015: GBS culture negative. IMPRESSION/REPORT/PLAN 1. Intrauterine at 38-6/7 weeks. Positive cardiac activity. 2. Gestational diabetes, on [place] [employer] diet. 3. History of depression, currently asymptomatic. PLAN: 1. I reviewed the risks, benefits, alternatives, and indication of induction of labor. I reviewed with the patient that we cannot schedule a social induction of labor before 39 weeks. I discussed and recommended induction of labor at 39 weeks due to gestational diabetes, diet controlled. 2. I have contacted [facility] and scheduled the patient for induction of labor with Pitocin and artificial rupture of membranes on 02/15/2015 at 39-1/7 weeks. 3. I discussed the importance of good blood sugar control in . I discussed [place] [employer] diet in . I discussed the importance of checking blood sugars. 4. I reviewed the risks, benefits, alternatives, and indication of Pitocin induction of labor with the patient. 5. I spent 25 minutes tyzd-hw-orow time with patient, with over 50% of that time spent in counseling. Narinder Enriquez M.D./cristiano Electronically Signed By: NARINDER ENRIQUEZ MD On: 02/13/2015 10:10 AM Source: [facility] MHSDOLBEYNONRADSYS Document Id: [id number] documented in this encounter Miscellaneous Notes Miscellaneous - Narinder Enriquez M.D. - 02/13/2015 9:11 AM CDT Ambulatory Patient Summary [address] [id number] Visit Information Name: KEILY NG [facility] Number: [id number] Current Date: 02/13/2015 09:11:29 Physicians Attending Provider: NARINDER ENRIQUEZ MD Primary [...] the Following Medications: Medication list as of 02-13-15 09:11 Attention: If you have any medications at [...] Electronically Signed By: NARINDER ENRIQUEZ MD Signed On:13-FEB-2015 09:11:25 Your Allergies & Intolerances Substance Reaction Symptoms [...] appointment detail needed. Your Goals/Additional instructions: Source: [facility] POWERCHART Document Id: [id number] LIELT Nikhil - Narinder Enriquez M.D. - 02/13/2015 9:11 AM CDT Ambulatory Discharge Medication List [address] [id number] Visit Information Name: KEILY NG [facility] Number: [id number] Visit Date: 02/13/2015 09:11:28 Attending Provider: NARINDER ENRIQUEZ MD Primary Care [...] the Following Medications: Medication list as of 02-13-15 09:11 Attention: If you have any medications at [...] Electronically Signed By: NARINDER ENRIQUEZ MD Signed On:13-FEB-2015 09:11:25 Additional Information: Source: [facility] [employer] Document Id: [id number] I Tejeda - Yulisa Morgan L.PAmarisN. 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 Intake/History Entered On: 02/13/2015 8:54 CDT Performed On: 02/13/2015 8:52 CDT by YULISA MORGAN LPN Intake Chief Complaint : Ob visit 38 6/7 weeks LMP Date : 05/18/14 Systolic Blood Pressure : 96 mmHg Diastolic Blood Pressure : 62 mmHg NIBP Mean : 73 mmHg BP Location : Right upper extremity Blood Pressure Cuff Size : Regular Height : 152 cm(Converted to: 5 ft 0 inch(es), 60 inch(es)) Actual Weight : 76.3 kg(Converted to: 168 lb 3 oz) Weight Source : Standing scale Dosing Weight Clinic : 76.3 kg Clinic BSA : 1.79 Body Mass Index : 33.02 kg/m2 YULISA MORGAN LPN - 02/13/2015 8:52 CDT General Info Information Given By : Patient Languages : Cymraes Is Patient Female and 13-50 no hysterectomy : Yes Status : Confirmed positive Are you ? : No YULISA MORGAN LPN - 02/13/2015 8:52 CDT Subjective Pain Symptoms : No YULISA MORGAN LPN - 02/13/2015 8:52 CDT Dependent Habits Tobacco Use/Currently Using : Yes Exposure to Tobacco Smoke : Patient smokes Smoking Status : Current every day smoker YULISA MORGAN LPN - 02/13/2015 8:52 CDT Tobacco Use Grid Type : Cigarettes Last Use : 07/07 YULISA MORGAN LPN - 02/13/2015 8:52 CDT Caffeine Use Grid Caffeine Use : None YULISA MORGAN LPN - 02/13/2015 8:52 CDT Recreational Drug Use Grid Drug Use : None YULISA MORGAN LPN 02/13/2015 8:52 CDT ID Screen Drug Resistant Organism : No Travel Within Last 21 Days : No Contact with someone with Ebola : No YULISA MORGAN LPN 02/13/2015 8:52 CDT [facility] Document Id: [id number] CDT!41 documented in this encounter Plan of Treatment Upcoming Encounters Date Type Specialty Care Team Description 08/30/2022 Clinical Communication Admitting/Central Scheduling 09/02/2022 Comprehensive Visit Endocrinology Ricardo Winkler APRN, C.N.P., D.N.P. [address] [place] [address] documented as of this encounter Visit Diagnoses Not on filedocumented in this encounter Additional Health Concerns Assessment Noted Time PHQ-9 Depression Total Score: 22 10/04/2013 2:31 PM CS T documented as of this encounter
--- OUTSIDE RECORDS SUMMARY | 2022-08-16 21:33 | XMS_ITS | Encounter Summary ---
:1985 Author Organization [facility] Address [address] [place] [address] Care Team Providers Name Role Phone Unavailable Primary Care Provider Unavailable Encounter Details Date Type Department Care Team Description 10/31/2014 Hospital Encounter HX NO MAPPING Grayson Tang P.A.-C. [address] [place] [address] (Wo rk) Social History [...] do you attend moravian or Never 2021 taoism services? Do you [...] Ricardo Winkler, SILVIO, C.N.P., D.N.P. [address] [place] [address] documented as of this encounter Visit Diagnoses Not on filedocumented in this encounter Additional Health Concerns Assessment Noted Time PHQ-9 Depression Total Score: 22 10/04/2013 2:31 PM CS T documented as of this encounter
--- OUTSIDE RECORDS SUMMARY | 2022-08-16 21:33 | XMS_ITS | Encounter Summary ---
:1985 Author Organization [facility] Address [address] [place] [address] Care Team Providers Name Role Phone Unavailable Primary Care Provider Unavailable Encounter Details Date Type Department Care Team Description 12/26/2016 Hospital Encounter HX [facility] Narinder De [...] do you attend druze or Never 2021 taoism services? Do you [...] Sign Reading Time Taken Comments Blood Pressure 106/64 12/26/2016 2:41 PM ELECTROCARDIOGRAPH REPAIRER Pulse 68 12/26/2016 2:41 PM ELECTROCARDIOGRAPH REPAIRER Temperature - - Respiratory Rate - - Oxygen Saturation - - Inhaled Oxygen Concentration - - Weight 69.8 kg (153 lb 14.1 oz) 12/26/2016 2:41 PM ELECTROCARDIOGRAPH REPAIRER Height 152 cm (4' 11.84) 12/26/2016 2:41 PM ELECTROCARDIOGRAPH REPAIRER Body Mass Index 30.21 12/26/2016 2:41 PM ELECTROCARDIOGRAPH REPAIRER documented in this encounter Medications at Time of Discharge Medication Sig Dispensed Refills Start Date End Date norelgestromin-ethinyl Apply 1 patch 0 12/18/2016 01/07/2018 estradiol (ORTHO EVRA) topically once a week. 150-35 mcg/24 hr patch documented as of this encounter Progress Notes Narinder Enriquez M.D. - 12/26/2016 2:35 PM CST [id number] CHIEF COMPLAINT/REASON FOR VISIT Acute gynecology visit. HISTORY OF PRESENT ILLNESS This patient is a 31-year-old, G7, P4-0-3-4 female with LMP of 12/22/2016. The patient presents for an acute gynecology visit complaining of a suspected yeast infection. She reports that for the last 5days she has had vaginal itching and irritation with a foul odor. She reports that her perineum appears red and irritated. It is very uncomfortable. She tried ufcb-eof-qdfuuej Monistat without improvement in her symptoms and she believes that this is a yeast infection. She denies any difficulty urinating. No change in bowel habits. No fevers or chills. ALLERGIES No known drug allergies. MEDICATIONS 1. Ortho Evra patch. 2. Flagyl, new prescription given today. PAST MEDICAL/SURGICAL HISTORY PAST MEDICAL HISTORY: 1. Gestational diabetes. 2. Former tobacco user quit 2013. 3. History of depression. 4. History of bipolar disorder. 5. History of polycystic ovarian syndrome. 6. History of cervical dysplasia, 2005. PAST SURGICAL HISTORY: 1. Laparoscopic appendectomy, 2012. 2. LEEP procedure, 2005. PAST OBSTETRICAL HISTORY: 1. Vaginal delivery x4. 2. Miscarriage x3. SOCIAL HISTORY The patient is in a stable, monogamous relationship. She quit smoking in 2013. No alcohol or drug use. No history of STD or PID. She has had normal Pap smears since her LEEP procedure, 2005. VITAL SIGNS Weight 69.8 kg, height 152 cm, pulse 68, blood pressure 106/64. PHYSICAL EXAMINATION GENERAL: Well-developed, well-nourished female in mild distress secondary to vaginal irritation and discomfort. ABDOMEN: Soft, nontender, nondistended. Positive bowel sounds. No hepatosplenomegaly. No rebound. Noguarding. GENITOURINARY EXAM: Normal external female genitalia. Normal BUS. There is erythema to the perineum.Vaginal mucosa with erythema and a thin hernandez vaginal discharge with amine odor. No vaginal lesions noted. Normal multiparous cervical os noted without lesions. No cervical motion tenderness. Light menses blood flow coming through the cervical os. EXTREMITIES: No clubbing, cyanosis, or edema. Nontender bilaterally. DIAGNOSTICS Lab 12/26/2016: Vaginitis panel obtained, results are pending. IMPRESSION/REPORT/PLAN Suspect bacterial vaginosis based on the physical exam findings and symptoms. PLAN: 1. Vaginitis panel was obtained, results are pending. 2. Based on the patient's symptoms and examination findings, I believe she has bacterial vaginosis. I am going to give the patient a prescription for Flagyl 500 mg by mouth 2 times per day x7 days. I discussed use of this medication with the patient. I discussed side effects with patient. I recommend that she avoid alcohol which is on the medication. 3. Perineal hygiene discussed with the patient. 4. I recommend the patient wear cotton underwear. 5. All the patient's questions are answered. Narinder Enriquez M.D./cristiano Electronically Signed By: NARINDER ENRIQUEZ MD On: 12/28/2016 09:40 AM Source: [facility] MHSDOLBEYNONRADSYS Document Id: [id number] TROCARDIOGRAPH REPAIRER documented in this encounter Miscellaneous Notes Miscellaneous - Narinder Enriquez M.D. - 12/26/2016 2:54 PM CST Ambulatory Patient Summary [address] [id number] Visit Information Name: SAMUEL NG [facility] Number: [id number] Current Date: 12/26/2016 14:54:06 Physicians Attending Provider: NARINDER ENRIQUEZ MD Primary [...] every 6 hours as needed for wheezing metroNIDAZOLE (Flagyl 500 mg oral tablet) 1 Tablet(s), Oral, two times a day x 7 day(s) New Routed to [address] [id number] norelgestromin-ethinyl estradiol (Ortho Evra 150 mcg-35 mcg/24 hr transdermal film, extended release) 1 patch(es), Topical, every week Apply one patch each week for 3 weeks (21 total days); followed byone week that is patch-free. Stop Taking the Following Medications: Medication list as of 12-26-16 14:54 Attention: If you have any medications at [...] Electronically Signed By: NARINDER ENRIQUEZ MD Signed On:26-DEC-2016 14:54:03 Your Allergies & Intolerances Substance Reaction Symptoms [...] if you dont have one. Go to [email or web address] and click on Create Your Account. Then, follow the directions to complete the online form. Youll be asked for your [facility] number which you can find at the top of this document. Your Goals/Additional instructions: Source: [facility] POWERCHART Document Id: [id number] TROCARDIOGRAPH REPAIRER Miscellaneous - Narinder Enriquez M.D. - 12/26/2016 2:54 PM CST Ambulatory Discharge Medication List [address] [id number] Visit Information Name: SAMUEL NG [facility] Number: [id number] Current Date: 12/26/2016 14:54:05 Attending Provider: NARINDER ENRIQUEZ MD Primary Care [...] every 6 hours as needed for wheezing metroNIDAZOLE (Flagyl 500 mg oral tablet) 1 Tablet(s), Oral, two times a day x 7 day(s) New Routed to [place] [address] [place] [address] norelgestromin-ethinyl estradiol (Ortho Evra 150 mcg-35 mcg/24 hr transdermal film, extended release) 1 patch(es), Topical, every week Apply one patch each week for 3 weeks (21 total days); followed byone week that is patch-free. Stop Taking the Following Medications: Medication list as of 12-26-16 14:54 Attention: If you have any medications at [...] Electronically Signed By: NARINDER ENRIQUEZ MD Signed On:26-DEC-2016 14:54:03 Additional Information: Source: [facility] POWERCHART Document Id: [id number] TROCARDIOGRAPH REPAIRER Miscellaneous - Susana Morgan, L.P.N. - 12/26/2016 2:41 PM CST Adult Sat Tutor Intake/History Adult Sat Tutor Intake/History Entered On: 12/26/2016 14:42 ELECTROCARDIOGRAPH REPAIRER Performed On: 12/26/2016 14:41 ELECTROCARDIOGRAPH REPAIRER by SUSANA MORGAN LPN Intake Chief Complaint : Yeast infection LMP Date : 12/22/16 Peripheral Pulse Rate : 68 /min Systolic Blood Pressure : 106 mmHg Diastolic Blood Pressure : 64 mmHg NIBP Mean : 78 mmHg BP Location : Right upper extremity Blood Pressure Cuff Size : Regular Height : 152 cm(Converted to: 5 ft 0 inch(es), 60 inch(es)) Actual Weight : 69.8 kg(Converted to: 153 lb 14 oz) Weight Source : Standing scale Dosing Weight Clinic : 69.8 kg Clinic BSA : 1.72 Body Mass Index : 30.21 kg/m2 SUSANA MORGAN LPN - 12/26/2016 14:41 ELECTROCARDIOGRAPH REPAIRER General Info Information Given By : Patient Languages : Romanian Is Patient Female and 13-50 no hysterectomy : Yes Status : Patient denies Are you ? : No SUSANA MORGAN [facility] - 12/26/2016 14:41 ELECTROCARDIOGRAPH REPAIRER Subjective Pain Symptoms : No SUSANA MORGAN [facility] - 12/26/2016 14:41 ELECTROCARDIOGRAPH REPAIRER Dependent Habits Exposure to Tobacco Smoke : Other: former. Quit 06/2014 Smoking Status : Former smoker Tobacco 2A : Yes Tobacco Use/Currently Using : No Tobacco Use/Last 30 Days : No Tobacco Use/Last 12 months : No SUSANA MORGAN [facility] - 12/26/2016 14:41 ELECTROCARDIOGRAPH REPAIRER Caffeine Use Grid Caffeine Use : None SUSANA MORGAN [facility] - 12/26/2016 14:41 ELECTROCARDIOGRAPH REPAIRER Recreational Drug Use Grid Drug Use : None EDDIE SUSANA [facility] - 12/26/2016 14:41 ELECTROCARDIOGRAPH REPAIRER Source: [facility] POWERCHART Document Id: [id number] ELECTROCARDIOGRAPH REPAIRER!37 TROCARDIOGRAPH REPAIRER documented in this encounter Plan of Treatment Upcoming Encounters Date Type Specialty Care Team Description 08/30/2022 Clinical Communication Admitting/Central Scheduling 09/02/2022 Comprehensive Visit Endocrinology Ricardo Winkler APRN, C.N.P., D.N.P. [address] [place] [address] documented as of this encounter Procedures Procedure Name Priority Date/Time Associated Diagnosis Comme nts VAGINITIS BATTERY, Routine 12/26/2016 4:00 PM Res ults for this DNA (GENITAL) ELECTROCARDIOGRAPH REPAIRER procedure are in the results section. documented in this encounter Results VAGINITIS BATTERY, DNA (GENITAL) (12/26/2016 4:00 PM ELECTROCARDIOGRAPH REPAIRER) Component Value Ref Test Analysis Performed At [facility] Range Method Time Signature HXVaginitis POWERCHART Battery, DNA (Genital) HXFinal Trichomonas POWERCHART vaginalis DNA negative HXFinal Gardnerella POWERCHART vaginalis DNA negative HXFinal Francia species POWERCHART DNA negative HXFinal Reference: POWERCHART Negative Specimen (Source) Anatomical Collection Method Collection Time Re ceived Time Location / / Volume Laterality Vagina 12/26/2016 4:00 PM ELECTROCARDIOGRAPH REPAIRER Narinder Enriquez M.D. LAB HISTORICAL ORDERS Performing Organization Address City/State/ZIP Code Phon e Number POWERCHART documented in this encounter Visit Diagnoses Not on filedocumented in this encounter Additional Health Concerns Assessment Noted Time PHQ-9 Depression Total Score: 17 08/02/2015 8:53 AM CD T documented as of this encounter
--- OUTSIDE RECORDS SUMMARY | 2022-08-16 21:33 | XMS_ITS | Encounter Summary ---
:1985 Author Organization [facility] Address [address] [place] [address] Care Team Providers Name Role Phone Unavailable Primary Care Provider Unavailable Encounter Details Date Type Department Care Team Description 01/27/2015 Hospital Encounter HX NO MAPPING Jhonny Enriquez [...] do you attend sikhism or Never 2021 sabianism services? Do you [...] slept in a senior living (including now)? Sex Assigned at Date Recorded Female 06/02/2018 2:38 PM CDT documented as of this encounter Plan of Treatment Upcoming Encounters Date Type Specialty Care Team Description 08/30/2022 Clinical Communication Admitting/Central Scheduling 09/02/2022 Comprehensive Visit Endocrinology Ricardo Winkler APRN, C.N.P., D.N.P. [address] [place] [address] documented as of this encounter Visit Diagnoses Not on filedocumented in this encounter Additional Health Concerns Assessment Noted Time PHQ-9 Depression Total Score: 22 10/04/2013 2:31 PM CS T documented as of this encounter
--- OUTSIDE RECORDS SUMMARY | 2022-08-16 21:33 | XMS_ITS | Encounter Summary ---
:1985 Author Organization [facility] Address [address] [place] [address] Care Team Providers Name Role Phone Unavailable Primary Care Provider Unavailable Encounter Details Date Type Department Care Team Description 11/18/2014 Hospital Encounter HX [facility] Narinder De [...] do you attend moravian or Never 2021 baptist services? Do you [...] Reading Time Taken Comments Blood Pressure 100/62 11/18/2014 2:33 PM TOOLING SUPERVISOR Pulse - - Temperature - - Respiratory Rate - - Oxygen Saturation - - Inhaled Oxygen Concentration - - Weight - - Height 152 cm (4' 11.84) 11/18/2014 2:33 PM TOOLING SUPERVISOR Body Mass Index - - documented in this encounter Progress Notes Narinder Enriquez M.D. - 11/18/2014 2:27 PM CST [id number] CHIEF COMPLAINT/REASON FOR VISIT OB visit. HISTORY OF PRESENT ILLNESS This patient is a 29-year-old, -0-2-3 female with LMP of 05/18/2014 and EDC of 02/22/2015 at 26and 3/7 weeks. Patient presents for OB visit. She reports active movement. She denies leaking of fluid or vaginal bleeding. No cramping or contractions. No pelvic pressure. No headaches or visionchanges. No depression symptoms. No difficulty urinating. No change in bowel habits. The patient does complain of right-sided pain that radiates to her back. The patient was seen in [facility]2014, and she was seen in the emergency room in [place] on 11/15/2014 for the same complaints. She had a normal evaluation and it was thought that she had musculoskeletal pain and discomfort. The patient was given some Tylenol #3, as well as lidocaine topical patches with some improvement in her symptoms. She reports her symptoms are improved when she lays down and is still and is on the lidocaine patch and Tylenol #3. She reports having severe right upper quadrant abdominal pain and right flank pain, which caused her to present to both the emergency rooms. She had a right upper quadrant ultrasound with normal findings. No evidence of stone or sludge in the gallbladder. The patient's urinalysis was negative. Her LFTs are normal. Her chemistries are normal. Her hemoglobin and hematocrit were low at 9.5 and 29.7, and her white blood cell count was 17.7, otherwise normal findings. ALLERGIES No known drug allergies. MEDICATIONS 1. Generic vitamins. 2. Tylenol #3 as needed. 3. Lidocaine topical patch as needed. PAST MEDICAL/SURGICAL HISTORY PAST MEDICAL HISTORY: 1. History of tobacco abuse, quit in 07/28/2014. 2. History of depression. 3. History of bipolar disorder. 4. History of cervical dysplasia in 2005. 5. History of polycystic ovarian syndrome. 6. Right-sided musculoskeletal chest pain. PAST SURGICAL HISTORY: 1. Laparoscopic appendectomy, 2012. 2. LEEP procedure 2005. PAST OBSTETRICAL HISTORY 1. Vaginal delivery 02/10/2002. 2. Vaginal delivery 08/16/2008. 3. Vaginal delivery 11/06/2010. 4. Miscarriage 2004. 5. Miscarriage 2005. SOCIAL HISTORY The patient quit smoking on 07/28/2014. She denies alcohol and drug use. No history of STD or PID. No history of abuse. PHYSICAL EXAMINATION VITAL SIGNS: Height 152 cm, weight is 75.0 kg, blood pressure 100/62, pulse 66, respiration 18, temperature 37.2. GENERAL: Well-developed, well-nourished, gravid female in no apparent distress. Alert and oriented x3. Normal affect. ABDOMEN: Gravid, soft, nontender. Positive bowel sounds. Fundal height 26 cm. Positive Doptones are auscultated, 148 beats per minute. EXTREMITIES: No clubbing, cyanosis, or edema. Nontender bilaterally. GENITALIA: Exam deferred. ABDOMEN: There is some minimal tenderness in the right upper quadrant with palpation. No rebound. Noguarding. DIAGNOSTICS RADIOLOGY: On 11/14/2014, right upper quadrant ultrasound: Normal. Gallbladder normal without sludgeor stones. LABORATORY: On 11/14/2014: Urinalysis negative. Creatinine 0.53. Chemistry normal. Albumin 3.0, alkaline phosphatase 85, ALT 12, AST 12. White blood cell count 17.7, hemoglobin 9.5, hematocrit 29.7, platelet 301. IMPRESSION/REPORT/PLAN 1. Intrauterine at 26 and 3/7 weeks. Positive cardiac activity. 2. Suspect right-sided musculoskeletal pain, chest and upper back, improving. 3. History of tobacco abuse. Patient quit smoking 07/28/2014. PLAN: 1. The patient has been seen in 2 different emergency rooms earlier this week for right upper quadrant pain and musculoskeletal pain. She had a normal right upper quadrant ultrasound and normal labs and evaluation. The patient was given Tylenol #3, as well as some lidocaine topical patches with improvement in her symptoms. 2. I discussed the risks, benefits, alternatives, indication to Tylenol #3 with codeine, as well as lidocaine topical patches use in . I discussed the possible use of this for short-term and that she should not use this long-term. 3. Symptomatic relief measures for musculoskeletal pain discussed with the patient. I encouraged heating pads and hot water bottles to the side, as well as a warm bath and massage. I discussed qcbl-hap-kfooyum Icy-Hot as an option as well. 4. If the patient's symptoms continue, I would like for her to see her primary provider for further evaluation and management of musculoskeletal pain in , as well as possible evaluation and consult by Physical Therapy. She agrees to this course of action. 5. I would like to see the patient back in 2 weeks for obstetric visit or be seen sooner as needed. 6. Glucola with instructions were given to the patient. I recommend that we check a diabetic screen at the next visit per protocol. 7. Routine obstetric precautions, recommendations, instructions are reviewed with the patient including movement and kick counts. Narinder Enriquez M.D./cristiano Electronically Signed By: NARINDER ENRIQUEZ MD On: 11/21/2014 09:11 AM Source: [facility] MHSDOLBEYNONRADSYS Document Id: [id number] ING SUPERVISOR documented in this encounter Miscellaneous Notes Telephone Encounter - Karen Fuentes M.D. - 11/25/2014 12:00 AM CST [id number] PHYSICIANS NOTE: Patient did not appear for her appointment today. This document serves as a record of services personally performed by Karen Baltazar MD. It was created on their behalf by Bambi Delatorre, a trained emergency medicine medical director. The creation of this record is basedon the scribe's personal observations and the provider's statements to them. This document has been c hecked and approved by the attending provider. Karen Baltazar M.D./pattie Electronically Signed By: KAREN FUENTES MD On: 01/08/2015 09:10 PM Source: [facility] MHSDOLBEYNONRADSYS Document Id: [id number] ING SUPERVISOR Miscellaneous - aNrinder Enriquez M.D. - 11/18/2014 4:14 PM CST Ambulatory Patient Summary [address] [id number] Visit Information Name: KEILY NG [facility] Number: [id number] Current Date: 11/18/2014 16:14:36 Physicians Attending Provider: NARINDER ENRIQUEZ MD Primary Care Provider: KAREN BALTAZAR MD KEILY [...] the Following Medications: Medication list as of 11-18-14 16:14 Attention: If you have any medications at [...] Electronically Signed By: NARINDER ENRIQUEZ MD Signed On:18-NOV-2014 16:14:32 Your Allergies & Intolerances Substance Reaction Symptoms [...] Your Upcoming Appointments Date Time Location Provider 11/25/2014 14:45 [facility] Karen Baltazar MD 12/02/2014 13:30 [facility] ELECTRICIAN'S HELPER Narinder Enriquez MD Attention: Contact your local Clinic if further appointment detail needed. Your Goals/Additional instructions: Source: [facility] POWERCHART Document Id: [id number] ING SUPERVISOR Miscellaneous - Narinder Enriquez M.D. - 11/18/2014 4:14 PM CST Ambulatory Discharge Medication List [address] [id number] Visit Information Name: KEILY NG [facility] Number: [id number] Visit Date: 11/18/2014 16:14:35 Attending Provider: NARINDER ENRIQUEZ MD Primary Care Provider: KAREN BALTAZAR MD KEILY [...] the Following Medications: Medication list as of 11-18-14 16:14 Attention: If you have any medications at [...] Electronically Signed By: NARINDER ENRIQUEZ MD Signed On:18-NOV-2014 16:14:32 Additional Information: Source: [facility] POWERCHART Document Id: [id number] ING SUPERVISOR Miscellaneous - Yulisa Morgan L.PAmarisN. - 11/18/2014 2:33 PM CST Adult Tile Professional Intake/History Adult Tile Professional Intake/History Entered On: 11/18/2014 14:35 TOOLING SUPERVISOR Performed On: 11/18/2014 14:33 TOOLING SUPERVISOR by YULISA MORGAN LPN Intake Chief Complaint : Ob visit 26 3/7 weeks LMP Date : 05/18/14 Systolic Blood Pressure : 100 mmHg Diastolic Blood Pressure : 62 mmHg NIBP Mean : 75 mmHg BP Location : Right upper extremity Blood Pressure Cuff Size : Regular Height : 152 cm(Converted to: 5 ft 0 inch(es), 60 inch(es)) YULISA MORGAN LPN - 11/18/2014 14:33 TOOLING SUPERVISOR General Info Information Given By : Patient Languages : Bengali Is Patient Female and 13-50 no hysterectomy : Yes Status : Confirmed positive Are you ? : No YULISA MORGAN LPN - 11/18/2014 14:33 TOOLING SUPERVISOR Subjective Pain Symptoms : No YULISA MORGAN LPN - 11/18/2014 14:33 TOOLING SUPERVISOR Dependent Habits Tobacco Use/Currently Using : Yes Exposure to Tobacco Smoke : Patient smokes Smoking Status : Current every day smoker YULISA MORGAN LPN - 11/18/2014 14:33 TOOLING SUPERVISOR Tobacco Use Grid Type : Cigarettes Cigarette Use Packs/Day : 0.2 YULISA MORGAN LPN - 11/18/2014 14:33 TOOLING SUPERVISOR Caffeine Use Grid Caffeine Use : None YULISA MORGAN LPN - 11/18/2014 14:33 TOOLING SUPERVISOR Recreational Drug Use Grid Drug Use : None YULISA MORGAN LPN - 11/18/2014 14:33 TOOLING SUPERVISOR ID Screen Drug Resistant Organism : No Travel Within Last 21 Days : No YULISA MORGAN LEXIS - 11/18/2014 14:33 TOOLING SUPERVISOR Source: [facility] POWERCHART Document Id: [id number] TOOLING SUPERVISOR!35 ING SUPERVISOR Telephone Encounter - Christiano Alvarado, LAmarisPAmarisN. - 11/15/2014 11:44 AM TOOLING SUPERVISOR *Phone Message Document Contains Addenda Addendum by LISETTE SANCHEZ MD on 15 November 2014 13:39:56 TOOLING SUPERVISOR From: LISETTE SANCHEZ MD To: Obstetrics/Gynecology Nurse; Sent: 11/15/2014 13:39:56 TOOLING SUPERVISOR Subject: RE: *Phone Message I spoke with her. Her RUQ US was completely normal at [facility]. She has a cold, so that explains her elevated WBC. She has no associate N/V/D/C, or any other associated symptoms. She feels better when she lays down, so I think this is musculoskeletal. She will see Dr. Enriquez on Friday as scheduled, unless she develops concerning sx's in the meantime which I discussed with her. If that is the case, [facility]. From: CHRISTIANO ALVARADO ( Obstetrics/Gynecology Nurse) To: LISETTE SANCHEZ MD; Sent: 11/15/2014 11:44:53 TOOLING SUPERVISOR Subject: *Phone Message Caller is: ( X ) Patient ( ) Mother ( ) Father ( ) Spouse ( ) Daughter ( ) Son ( ) Pharmacy ( ) Other: Physician: [id number] Patient MRN #: Reason for Call: Patient called and stated that she has severe abdominal pain and she can barely sitor stand. She was seen in the ED on Friday night and they thouhgt that it might be her gallbladder. She has an appt. with Dr. Enriquez this Friday, but she wants to know if anything can be done before then for the pain. She is about 26 weeks . Please advise. Message: Advice/Action: Source used: ( ) Verbalizes [...] back cell phone number ( ) Source: [facility] POWERCHART Document Id: [id number] documented in this encounter Plan of Treatment Upcoming Encounters Date Type Specialty Care Team Description 08/30/2022 Clinical Communication Admitting/Central Scheduling 09/02/2022 Comprehensive Visit Endocrinology Ricardo Winkler, SILVIO, C.N.P., D.N.P. [address] [place] [address] documented as of this encounter Visit Diagnoses Not on filedocumented in this encounter Additional Health Concerns Assessment Noted Time PHQ-9 Depression Total Score: 22 10/04/2013 2:31 PM CS T documented as of this encounter
--- OUTSIDE RECORDS SUMMARY | 2022-08-16 21:33 | XMS_ITS | Encounter Summary ---
:[address] [facility] Address [address] [place] [id number] Care Team Providers Name Role Phone Unavailable Primary Care Provider Unavailable Encounter Details Date Type Department Care Team Description 12/22/2014 Hospital Encounter HX [facility] Narinder De [...] do you attend mandaeism or Never 2021 sikh services? Do you [...] slept in a skilled nursing (including now)? Sex Assigned at Date Recorded Female 06/02/2018 2:38 PM CDT documented as of this encounter Last Filed Vital Signs Vital Sign Reading Time Taken Comments Blood Pressure 94/54 12/22/2014 2:18 PM HOSPITAL LIBRARIAN Pulse - - Temperature - - Respiratory Rate - - Oxygen Saturation - - Inhaled Oxygen Concentration - - Weight 76.5 kg (168 lb 10.4 oz) 12/22/2014 2:18 PM HOSPITAL LIBRARIAN Height 152 cm (4' 11.84) 12/22/2014 2:18 PM HOSPITAL LIBRARIAN Body Mass Index 33.11 12/22/2014 2:18 PM HOSPITAL LIBRARIAN documented in this encounter Progress Notes Narinder Enriquez M.D. - 12/22/2014 2:12 PM CST [id number] CHIEF COMPLAINT/REASON FOR VISIT OB. HISTORY OF PRESENT ILLNESS This patient is a 29-year-old, G6, P3-0-2-3 female with LMP of 05/18/2014 and EDC of 02/22/2015 at 31 and 2/7 weeks. Patient presents for OB visit. She is doing well. She has no complaints. She reportsgood movement. She denies cramping or contractions. No pelvic pressure. No leaking of fluid orvaginal bleeding. No depression symptoms. No headaches, vision changes. No difficulty urinating. ALLERGIES No known drug allergies. MEDICATIONS Generic vitamins. PAST MEDICAL/SURGICAL HISTORY PAST MEDICAL HISTORY: 1. History of tobacco abuse, quit 2013. 2. History of depression. 3. History of bipolar disorder. 4. History of cervical dysplasia in 2005. 5. History of polycystic ovarian syndrome. PAST SURGICAL HISTORY: 1. Laparoscopic appendectomy 2012. 2. LEEP procedure 2005. PAST OBSTETRICAL HISTORY: 1. Vaginal delivery 02/10/2002. 2. Vaginal delivery 08/16/2008. 3. Vaginal delivery 11/06/2010. 4. Miscarriage 2004. 5. Miscarriage 2005. VITAL SIGNS Weight 76.5 kg. Height 152 cm. Blood pressure 94/54. Pulse 64. PHYSICAL EXAMINATION GENERAL: Well-developed, well-nourished, gravid female in no apparent distress. Alert and oriented x3. ABDOMEN: Gravid, soft, nontender. Positive bowel sounds. Fundal height 31 cm. Positive heart tones 140. Vertex presentation by [place]. EXTREMITIES: No clubbing, cyanosis or edema. Nontender bilaterally. GENITALIA: Deferred. DIAGNOSTICS Lab 12/02/2014: Diabetic screen 170. Lab 12/05/2014: 3 hour glucose tolerance test was 80, 197, 157, 86. IMPRESSION/REPORT/PLAN 1. Intrauterine at 31 and 2/7 weeks. Positive cardiac activity. 2. Gestational diabetes. PLAN: 1. I discussed the patient's diabetic screen as well as a 3 hour glucose tolerance test. The patienthas gestational diabetes. The 1 hour and 2 hour test on the glucose tolerance test are both elevated. This is diagnostic for gestational diabetes. 2. I discussed gestational diabetes with the patient. 3. I discussed management options for gestational diabetes with the patient. 4. I briefly discussed [employer] diet with the patient. 5. I would like the patient to follow [employer] diet and check blood sugars at home. I recommend the patient check fasting and 2 hour postprandial blood sugars at home. 6. I would like the patient see a cloth cutting machine operator in the next few days for diabetic education in . 7. Routine obstetric precautions, recommendations, instructions are reviewed with patient including movement and kick counts. 8. I would like the patient follow up in 2 weeks for obstetric visit or be seen sooner as needed. 9. I would like the patient see a cloth cutting machine operator for education in as mentioned above. 10. I spent 25 minutes face to face time with patient with over 50% of that time spent in counseling. Narinder Enriquez M.D./cristiano Electronically Signed By: NARINDER ENRIQUEZ MD On: 12/23/2014 08:06 AM Source: [facility] [id number] Document Id: [id number] ITAL LIBRARIAN documented in this encounter Miscellaneous Notes Miscellaneous - Narinder Enriquez M.D. - 12/22/2014 2:34 PM CST Ambulatory Patient Summary [address] [id number] Visit Information Name: [facility] NG [facility] Number: [id number] Current Date: 12/22/2014 14:34:54 Physicians Attending Provider: NARINDER ENRIQUEZ MD Primary [...] a day Stop Taking the Following Medications: acetaminophen-codeine (acetaminophen-codeine 300 mg-30 mg oral tablet) lidocaine topical (Lidoderm 5% topical film) Medication list as of 12-22-14 14:34 Attention: If you have any medications at [...] Electronically Signed By: NARINDER ENRIQUEZ MD Signed On:22-DEC-2014 14:34:50 Your Allergies & Intolerances Substance Reaction Symptoms [...] Your Upcoming Appointments Date Time Location Provider 12/29/2014 11:00 [facility] Erin Boyce CNP 01/05/2015 14:00 [facility] Narinder Enriquez MD Attention: Contact your local Clinic if further appointment detail needed. Your Goals/Additional instructions: Source: [facility] POWERCHART Document Id: [id number] ITAL LIBRARIAN Miscellaneous - Narinder Enriquez M.D. - 12/22/2014 2:34 PM CST Ambulatory Discharge Medication List [address] [id number] Visit Information Name: [facility] Number: [id number] Visit Date: 12/22/2014 14:34:53 Attending Provider: NARINDER ENRIQUEZ MD Primary Care [...] a day Stop Taking the Following Medications: acetaminophen-codeine (acetaminophen-codeine 300 mg-30 mg oral tablet) lidocaine topical (Lidoderm 5% topical film) Medication list as of 12-22-14 14:34 Attention: If you have any medications at [...] Electronically Signed By: NARINDER ENRIQUEZ MD Signed On:22-DEC-2014 14:34:50 Additional Information: Source: [facility] POWERCHART Document Id: [id number] ITAL LIBRARIAN Miscellaneous - Susana Morgan, L.P.N. 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 Handler Intake/History Entered On: 12/22/2014 14:19 HOSPITAL LIBRARIAN Performed On: 12/22/2014 14:18 HOSPITAL LIBRARIAN by SUSANA MORGAN LPN Intake Chief Complaint : OB visit 31 2/7 weeks LMP Date : 05/18/14 Systolic Blood Pressure : 94 mmHg Diastolic Blood Pressure : 54 mmHg NIBP Mean : 67 mmHg BP Location : Left upper extremity Blood Pressure Cuff Size : Regular Height : 152 cm(Converted to: 5 ft 0 inch(es), 60 inch(es)) Actual Weight : 76.5 kg(Converted to: 168 lb 10 oz) Weight Source : Standing scale Dosing Weight Clinic : 76.5 kg Clinic BSA : 1.8 Body Mass Index : 33.11 kg/m2 SUSANA MORGAN LPN - 12/22/2014 14:18 HOSPITAL LIBRARIAN General Info Information Given By : Patient Languages : Peruvian Is Patient Female and 13-50 no hysterectomy : Yes Status : Confirmed positive Are you ? : No SUSANA MORGAN LPN - 12/22/2014 14:18 HOSPITAL LIBRARIAN Subjective Pain Symptoms : No SUSANA MORGAN LPN - 12/22/2014 14:18 HOSPITAL [facility]RARIAN Dependent Habits Tobacco Use/Currently Using : Yes Exposure to Tobacco Smoke : Patient smokes Smoking Status : Current every day smoker SUSANA MORGAN LPN - 12/22/2014 14:18 H[facility]PITAL [facility]RARIAN Tobacco Use Grid Type : Cigarettes Cigarette Use Packs/Day : 0.2 SUSANA MORGAN LPN - 12/22/2014 14:18 HOSPITAL LIBRARIAN Caffeine Use Grid Caffeine Use : None SUSANA MORGAN LPN - 12/22/2014 14:18 HOSPITAL LIBRARIAN Recreational Drug Use Grid Drug Use : None SUSANA MORGAN LPN - 12/22/2014 14:18 HOSPITAL LIBRARIAN ID Screen Drug Resistant Organism : No Travel Within Last 21 Days : No SUSANA MORGAN LPN - 12/22/2014 14:18 HOSPITAL LIBRARIAN Source: [facility] POWERCHART Document Id: [id number] HOSPITAL LIBRARIAN!40 ITAL LIBRARIAN documented in this encounter Plan of Treatment Upcoming Encounters Date Type Specialty Care Team Description 08/30/2022 Clinical Communication Admitting/Central Scheduling 09/02/2022 Comprehensive Visit Endocrinology Ricardo Winkler APRN, C.N.P., D.N.P. [address] [place] [address] documented as of this encounter Visit Diagnoses Not on filedocumented in this encounter Additional Health Concerns Assessment Noted Time PHQ-9 Depression Total Score: 22 10/04/2013 2:31 PM CS T documented as of this encounter
--- OUTSIDE RECORDS SUMMARY | 2022-08-16 21:33 | XMS_ITS | Encounter Summary ---
:1985 Author Organization [facility] Address [address] [place] [id number] Care Team Providers Name Role Phone Unavailable Primary Care Provider Unavailable Encounter Details Date Type Department Care Team Description 12/18/2016 Hospital Encounter HX [facility] Narinder De [...] do you attend episcopalian or Never 2021 druze services? Do you [...] Reading Time Taken Comments Blood Pressure 90/62 12/18/2016 1:23 PM SYSTEMS PROTECTION TECHNICIAN Pulse 82 12/18/2016 1:23 PM SYSTEMS PROTECTION TECHNICIAN Temperature - - Respiratory Rate - - Oxygen Saturation - - Inhaled Oxygen Concentration - - Weight 69.9 kg (154 lb 1.6 oz) 12/18/2016 1:23 PM SYSTEMS PROTECTION TECHNICIAN Height 152 cm (4' 11.84) 12/18/2016 1:23 PM SYSTEMS PROTECTION TECHNICIAN Body Mass Index 30.25 12/18/2016 1:23 PM SYSTEMS PROTECTION TECHNICIAN documented in this encounter Medications at Time of Discharge Medication Sig Dispensed Refills Start Date End Date norelgestromin-ethinyl Apply 1 patch 0 12/18/2016 01/07/2018 estradiol (ORTHO EVRA) topically once a week. 150-35 mcg/24 hr patch documented as of this encounter H&P Notes Narinder Enriquez M.D. - 12/18/2016 1:19 PM CST [id number] CHIEF COMPLAINT/REASON FOR VISIT 1. Annual female examination. 2. Right breast lump. 3. Requests a refill of control. HISTORY OF PRESENT ILLNESS This patient is a 31-year-old G7, P4-0-3-4 female with LMP of 10/17/2016. The patient just had a spontaneous miscarriage on 11/28/2016. She was approximately 5 to 6 weeks and had a miscarriageat home. Her bleeding, cramping and discharge have stopped. The patient would like a new prescription for Ortho Evra patch so that she can restart on control. The patient reports that she had missed a few patches and accidentally became . She denies any depression symptoms or grief from the miscarriage. The patient reports that over the last several months she has noted a new lump on her right breast. She has a history of breast lumps and has been diagnosed with fibrocystic breast changes and she has noticed a new lump, above the size of a marble, on her right breast at 1 o'clock position that is notchanging in size or resolving. She would like to have this evaluated and is requesting an ultrasoundto evaluate. The patient would like to see a genetic counselor and discuss about family history of cancers and BRCA testing. She is interested in possible mastectomy and/or hysterectomy. She reports her mother has uterine cancer and is currently undergoing treatment. She has several aunts with uterine cancer and, she believes, breast cancer. She also reports a grandmother with what she believes is ovarian cancer.She is interested in possibly undergoing prophylactic surgical procedure. Before the patient's miscarriage she reports regular menses without menorrhagia or intermenstrual bleeding. No dyspareunia or postcoital spotting. No difficulty urinating, dysuria, hematuria, or flank pain. No change in bowel habits. No nausea, vomiting or diarrhea. No constipation. No headaches or vision changes. No shortness of breath or chest pain. No fevers or chills. The patient is a former smoker and quit in 2013. ALLERGIES No known drug allergies. MEDICATIONS Ortho Evra patch. New prescription given today. SYSTEMS REVIEW As per HPI. Otherwise negative. PAST MEDICAL/SURGICAL HISTORY PAST MEDICAL HISTORY: 1. Gestational diabetes. 2. Former tobacco user, quit in 2013. 3. History of depression. 4. History of bipolar disorder. 5. History of polycystic ovarian syndrome. 6. History of cervical dysplasia in 2005. PAST SURGICAL HISTORY: 1. Laparoscopic appendectomy in 2012. 2. LEEP procedure 2005. PAST OBSTETRICAL HISTORY: 1. Vaginal delivery 2001. 2. Vaginal delivery 2007. 3. Vaginal delivery 2009. 4. Vaginal delivery 2014. 5. Miscarriage x3 with most recent miscarriage on 11/28/2016. SOCIAL HISTORY The patient is in a stable, monogamous relationship. She quit smoking in 2013. No alcohol or drug use. She denies history of STD or PID. She had an abnormal Pap smear and underwent a LEEP procedure in 2005 with normal followup Pap smears. FAMILY HISTORY Mother has uterine cancer that is stage IV and has metastasized. She reports a grandmother she believes has ovarian cancer and several aunts with cancer. She is not sure of the exact type. No diabetes or hypertension. VITAL SIGNS Weight 69.9 kg, height 150 cm. Pulse 82, blood pressure 90/62. PHYSICAL EXAMINATION GENERAL: Well-developed, well-nourished female, in no apparent distress. Alert and oriented x3. Normal affect. SKIN: No rashes or lesions. HEENT: Head and neck within normal limits. Oropharynx is clear. No cervical adenopathy or tenderness. Trachea is midline. Bilateral tympanic membranes are clear. Nasal mucosa, clear. Pupils equally round and reactive to light and accommodation. THYROID: No thyromegaly or tenderness. BREASTS: Breasts are bilaterally symmetrical. The left breast has diffuse fibrocystic changes. No tenderness. No lesions. No discharge. No adenopathy. The right breast has diffuse fibrocystic changes. There is a palpable 1 cm nodule anteriorly at 1 o'clock position that the patient is able to feel. This is mobile and nontender. No adenopathy. No discharge. LUNGS: Clear to auscultation bilaterally with good inspiratory effort. HEART: Regular rate and rhythm without murmur. No JVD. ABDOMEN: Soft, nontender, nondistended. Positive bowel sounds. No hepatosplenomegaly. No rebound. Noguarding. SPINE: No CVA tenderness bilaterally. EXTREMITIES: No clubbing, cyanosis, or edema. Nontender bilaterally. GENITALIA: Normal external female genitalia. Normal BUS. Normal multiparous cervical os without lesions. No cervical motion tenderness. Uterus normal size, shape, consistency, anteflexed, mobile, nontender. No adnexal masses or tenderness bilaterally. RECTAL: Normal sphincter tone. No external hemorrhoids. Examination confirms genital exam. NEUROLOGIC: No gross motor or sensory deficits noted. GAIT: Normal gait. DIAGNOSTICS LABORATORY: On 12/18/2016 Pap smear obtained. Results are pending. RADIOLOGY: Right breast ultrasound ordered. Patient will go to the front and have this scheduled. IMPRESSION/REPORT/PLAN 1. Normal annual female examination. 2. New 1 cm right breast nodule, mobile, nontender. 3. Contraception counseling. 4. Patient has questions about family history of cancer. PLAN: 1. I am placing a consult to [facility] for the patient to be seen by a genetic counselor. I believe this is through the Gynecology Department. I would like the patient to just review her family history and discuss BRCA testing. The patient is interested in possible prophylactic mastectomy and hysterectomy. She is concerned about family history of female cancers. She has not have specific information about who has what type of cancer. She does know that her mother has uterine cancer that is stage IV and has metastasized. She is currently undergoing care. [facility] appointment with the patient directly. 2. I discussed the patient's breast lump. I am going to order right breast ultrasound for further evaluation. I also would like the patient to go and see Dr. Lebron, General Surgery, for further evaluation and management of this breast lump. The patient does have diffuse fibrocystic changes throughout but there is 1 discrete lymph at 1 o'clock position in the right breast I would like further evaluated. The patient agrees to this course of action. She will make an appointment to see Dr. Lebron. 3. Contraception options were discussed with patient. I reviewed the risks, benefits, alternatives, and indication of control pills, Depo-Provera, Ortho Evra patch, NuvaRing, Nexplanon, Mirena IUD, ParaGard IUD and condoms. The patient is interested in restarting Ortho Evra patch. I discussed the use of Ortho Evra patch with the patient. She desires to proceed. I gave the patient a prescriptionfor Ortho Evra patch 1 patch change weekly x3 and then off for 1 week with refills. I would like thepatient to go ahead and start on the Friday after her next menses. She had a miscarriage approximately 3 weeks ago and I suspect she will be having a menses in the next few weeks. I recommend the patient remain abstinent until she is on reliable contraception. 4. If the patient does not have a menses in the next 4 weeks I would like for her to follow up for evaluation. 5. I discussed the importance of regular care and preventive services. 6. I discussed influenza immunization with the patient and the patient declines. I recommend influenza immunization. 7. The patient's Pap smear was performed today. I will contact the patient in the next 2 weeks with results of her Pap smear. 8. Patient's last lipid panel was in 2013 and is up to date. 9. Patient's last tetanus immunization was in 2014 and is up to date. 10. Patient's last diabetes screen was in 2013 and is up to date. HEALTH MAINTENANCE RECOMMENDATIONS 1. Instructed to have complete physical exam once a year. 2. Instructed to see tunnel miner and dentist at least once a year. 3. Instructed to wear a seatbelt when in a motor vehicle. 4. Questioned about symptoms of domestic abuse and there are none. 5. 2 question depression screen performed without signs of depression symptoms. 6. Recommend breast self examinations once a month. Instructed on principle of self exam. 7. Regular exercise program recommended. 8. Daily calcium is recommended. 9. Folic acid supplement is recommended for all women of childbearing age. Narinder Enriquez M.D./cristiano Electronically Signed By: NARINDER ENRIQUEZ MD On: 12/18/2016 05:21 PM Source: [facility] MHSDOLBEYNONRADSYS Document Id: [id number] EMS PROTECTION TECHNICIAN documented in this encounter Miscellaneous Notes [place] - Narinder Enriquez M.D. - 12/23/2016 1:43 PM CST Custom Result Letter December 23, 2016 KEILY NG [address] [place] [id number] Dear KEILY NG, I am happy to inform you that your recent Pap smear has been read as normal or negative. This is very reassuring. I recommend following up with your next Pap smear in three years or sooner should you have any problems. If you should have any questions, please do not hesitate to contact my office. We look forward to serving you again in the future. Result Name Current Result BOLT LOADER Cytology. 12/18/2016 Sincerely, NARINDER ENRIQUEZ [address] [place] [address] Electronic Signature Electronically Signed By: NARINDER ENRIQUEZ MD On: December 23, 2016 This document has images extracted. Source: [facility] POWERCHART Document Id: [id number] Electronically signed by Wendi [facility] Center[facility] Derrickman Helper [id number] at 05/06/2017 4:04 AM CDT Miscellaneous - Narinder Enriquez M.D. - 12/18/2016 1:55 PM CST Ambulatory Patient Summary [address] [id number] Visit Information Name: KEILY NG [facility] Number: [id number] Current Date: 12/18/2016 13:55:56 Physicians Attending Provider: NARINDER ENRIQUEZ MD Primary [...] days); followed byone week that is patch-free. Routed to [facility] [address] Stop Taking the Following Medications: Medication list as of 12-18-16 13:55 Attention: If you have any medications at [...] Electronically Signed By: NARINDER ENRIQUEZ MD Signed On:18-DEC-2016 13:55:53 Your Allergies & Intolerances Substance Reaction Symptoms [...] if you dont have one. Go to [email or web address] and click on Create Your Account. Then, follow the directions to complete the online form. Youll be asked for your [facility] number which you can find at the top of this document. Your Goals/Additional instructions: Source: [facility] POWERCHART Document Id: [id number] EMS PROTECTION TECHNICIAN Miscellaneous - Narinder Enriquez M.D. - 12/18/2016 1:55 PM CST Ambulatory Discharge Medication List [address] [id number] Visit Information Name: KEILY NG [facility] Number: [id number] Current Date: 12/18/2016 13:55:55 Attending Provider: NARINDER ENRIQUEZ MD Primary Care [...] days); followed byone week that is patch-free. Routed to [facility] [address] [place] [address] Stop Taking the Following Medications: Medication list as of 12-18-16 13:55 Attention: If you have any medications at [...] Electronically Signed By: NARINDER ENRIQUEZ MD Signed On:18-DEC-2016 13:55:53 Additional Information: Source: [facility] [employer] Document Id: [id number] EMS PROTECTION TECHNICIAN Miscellaneous - Yulisa Morgan L.P.N. - 12/18/2016 1:51 PM CST [employer] Farm Manager Documentation [employer] Farm Manager Documentation Entered On: 12/18/2016 13:51 SYSTEMS PROTECTION TECHNICIAN Performed On: 12/18/2016 13:51 SYSTEMS PROTECTION TECHNICIAN by YULISA MORGAN LPN [employer] Farm Manager Documentation Exam/Procedure Performed : Pap smear, breast and pelvic exam CD [employer] Farm Manager Present : Yes CD [employer] Farm Manager Name : Yulisa Morgan LPN Present in Room During Exam/Procedure : Alone YULISA MORGAN LPN - 12/18/2016 13:51 SYSTEMS PROTECTION TECHNICIAN Source: [facility] [employer] Document Id: [id number] SYSTEMS PROTECTION TECHNICIAN!6 EMS PROTECTION TECHNICIAN Miscellaneous - Yulisa Morgan L.P.N. - 12/18/2016 1:23 PM CST Adult Magazine Hand Intake/History Adult Magazine Hand Intake/History Entered On: 12/18/2016 13:27 SYSTEMS PROTECTION TECHNICIAN Performed On: 12/18/2016 13:23 SYSTEMS PROTECTION TECHNICIAN by YULISA MORGAN LPN Intake Chief Complaint : Annual LMP Date : 10/17/16 Peripheral Pulse Rate : 82 /min Systolic Blood Pressure : 90 mmHg (LOW) Diastolic Blood Pressure : 62 mmHg NIBP Mean : 71 mmHg BP Location : Right upper extremity Blood Pressure Cuff Size : Regular Height : 152 cm(Converted to: 5 ft 0 inch(es), 60 inch(es)) Actual Weight : 69.9 kg(Converted to: 154 lb 2 oz) Weight Source : Standing scale Dosing Weight Clinic : 69.9 kg Clinic BSA : 1.72 Body Mass Index : 30.25 kg/m2 RIOS MORGANAH Tesfaye [facility] - 12/18/2016 13:23 SYSTEMS PROTECTION TECHNICIAN General Info Information Given By : Patient Languages : [place]an Is Patient Female and 13-50 no hysterectomy : Yes Status : Patient denies Are you ? : No RIOS MORGANAH Tesfaye [facility] - 12/18/2016 13:23 SYSTEMS PROTECTION TECHNICIAN Subjective Pain Symptoms : No YULISA MORGAN [facility] - 12/18/2016 13:23 SYSTEMS PROTECTION TECHNICIAN Dependent Habits Exposure to Tobacco Smoke : Other: former. Quit 06/2014 Smoking Status : Former smoker Tobacco 2A : Yes Tobacco Use/Currently Using : No Tobacco Use/Last 30 Days : No Tobacco Use/Last 12 months : No YULISA MORGAN [facility] - 12/18/2016 13:23 SYSTEMS PROTECTION TECHNICIAN Caffeine Use Grid Caffeine Use : None YULISA MORGAN [facility] - 12/18/2016 13:23 SYSTEMS PROTECTION TECHNICIAN Recreational Drug Use Grid Drug Use : None YULISA MORGAN [facility] - 12/18/2016 13:23 SYSTEMS PROTECTION TECHNICIAN Source: [facility] [employer] Document Id: [id number] SYSTEMS PROTECTION TECHNICIAN!37 EMS PROTECTION TECHNICIAN documented in this encounter Plan of Treatment Upcoming Encounters Date Type Specialty Care Team Description 08/30/2022 Clinical Communication Admitting/Central Scheduling 09/02/2022 Comprehensive Visit Endocrinology Ricardo Winkler APRN, C.N.P., D.N.P. [address] [place] [phone] documented as of this encounter Procedures Procedure Name Priority Date/Time Associated Diagnosis Comme nts PATHOLOGY BOLT LOADER Routine 12/18/2016 12:00 AM Results for this CYTOLOGY SYSTEMS PROTECTION TECHNICIAN procedure are i n the results section. documented in this encounter Results Pathology BOLT LOADER Cytology (12/18/2016 12:00 AM SYSTEMS PROTECTION TECHNICIAN) Specimen (Source) Anatomical Location Collection Method / Collectio n Time Received Time / Laterality Volume 12/18/2016 Narrative [facility] - 12/23/2016 1:40 PM SYSTEMS PROTECTION TECHNICIAN [facility] in [address] [place], [place] ??[phone] Patient Name: KEILY NG Patient ID #: [id number] Collected: 12/18/2016 Address: [facility]/Zip: [address] [place] [address] ??[phone] Received: Reported: 12/19/2016 12/23/2016 Soc. Sec. #: ?/Age/Sex 1985 (Age: 31) ??F Physician(s): RUBEN ENRIQUEZ MD Copy To: ? [facility] ??[id number] [address] [facility], ??[place] ??[address] CYTOPATHOLOGY BOLT LOADER REPORT FINAL CYTOLOGIC DIAGNOSIS Pap Smear VCE - ThinPrep: NEGATIVE FOR INTRAEPITHELIAL LESION OR MALIGNANCY ENDOCERVICAL CELLS/COMPONENT PRESENT. SATISFACTORY SPECIMEN FOR EVALUATION. Electronically Signed Out By amb/12/23/[address](ASCP) The Pap test is a screening procedure an d, as such, is subject to both false positive and false negative results as evidenced by published data. ??It is not a diagnostic test and results should be inter preted in the context of the patient's h istory and other clinical findings. ??Obtaining per iodic Pap tests may help to minimize the consequences of any false negatives that may occur. SPECIMEN(S) RECEIVED: Pap Smear VCE - ThinPrep CLINICAL HISTORY: CONTROL Date of Last Menstrual Period: 11/16/2016 Hormonal History: No hormonal therapy Other Clinical Conditions: HPV TYPING REQUESTED: 16/18 IF ASCUS Narinder Enriquez M.D. LAB PAP COPATH ORDERABLES Performing Organization Address City/State/ZIP Code Phon e Number [facility] documented in this encounter Visit Diagnoses Not on filedocumented in this encounter Additional Health Concerns Assessment Noted Time PHQ-9 Depression Total Score: 17 08/02/2015 8:53 AM CD T documented as of this encounter
--- OUTSIDE RECORDS SUMMARY | 2022-08-16 21:33 | XMS_ITS | Encounter Summary ---
:1985 Author Organization [facility] Address [address] [place] [address] Care Team Providers Name Role Phone Unavailable Primary Care Provider Unavailable Encounter Details Date Type Department Care Team Description 06/12/2015 Hospital Encounter HX [facility] Kulwinder Solano P.A.-C. [address] [place] [phone] (Wo rk) Social History Tobacco [...] do you attend mosque or Never 2021 roman catholic services? Do [...] Sign Reading Time Taken Comments Blood Pressure 104/72 06/12/2015 3:18 PM CDT Pulse 80 06/12/2015 3:18 PM CDT Temperature - - Respiratory Rate 16 06/12/2015 3:18 PM CDT Oxygen Saturation - - Inhaled Oxygen Concentration - - Weight 75 kg (165 lb 5.5 oz) 06/12/2015 3:18 PM CDT Height 152 cm (4' 11.84) 06/12/2015 3:18 PM CDT Body Mass Index 32.46 06/12/2015 3:18 PM CDT documented in this encounter Progress Notes Svetlana Solano P.A.-C. - 06/12/2015 3:07 PM CDT [id number] CHIEF COMPLAINT/REASON FOR VISIT Weight gain and fatigue. HISTORY OF PRESENT ILLNESS Keily is a 29-year-old female who just recently delivered her child. She says that since the delivery she has had fairly significant weight gain and this has been frustrating for her. She has a history of polycystic ovary syndrome and in the past has been on both spironolactone and Glucophage. She also has a history of an abnormal white blood cell count and for this has been evaluated in Hematology in [place]. This was most recently done in May of 2014. Keily has been on the Nexplanon since [facility] and she has followed with Dr. Enriquez. She was recently started on the oral contraceptive as well because of her spotting that has been frustrating for her. She is wondering about what the next step should be for further evaluation, particularly with her abdominal bloating and weight gain. VITAL SIGNS Noted in the electronic medical record. As I reviewed her vital signs in the chart, she was down to 69.2 kg after delivery, now is up to 75 kg. HEART: Regular rate and rhythm. No murmurs. LUNGS: Clear to auscultation. ABDOMEN: Soft and nontender to palpation. LOWER EXTREMITIES: Without edema. IMPRESSION/REPORT/PLAN 1. Weight gain. 2. History of polycystic ovary syndrome. PLAN: 1. At this time I am going to check a thyroid function today. I am going to have her follow up with Dr. Choudhary for consideration of further endocrinology evaluation and/or treatment of her polycystic ovary syndrome. She has been on metformin and spironolactone in the past. I do not know if this would be beneficial in this situation. She is in agreement with this plan and will follow up as scheduled. I will notify her if I get any abnormalities back on her thyroid function. The patient has continued to spot on the Nexplanon, which is frustrating for her. She is wondering if this is causing her weight gain. She has been given an oral contraceptive but has not yet started it. Will have her followup as scheduled. If there are questions or problems or worsening of her symptoms in the meantime, she will let us know. 2. Leukocytosis. This has been a chronic issue for her as well. This has been evaluated by Hematology and she has had repeat CBCs since that time. She says it was a very expensive workup for her in [place] and that at this time she does not want to pursue this any further because it has been stable.If she has any further questions or problems, she will let us know. Svetlana Solano PA-C/cristiano Electronically Signed By: SVETLANA SOLANO PA-C On: 06/14/2015 08:06 AM Source: [facility] MHSDOLBEYNONRADSYS Document Id: [id number] documented in this encounter Nursing Notes Mallorie Navarro - 08/02/2015 8:55 AM CDT PHQ9 Pt submitted completed PHQ9 with a score of 17, scoring 0 for question #9. Dr. Baltazar notified. Electronically Signed By: MALLORIE NAVARRO LPN On: 08/03/2015 08:56 AM Source: [facility] POWERCHART Document Id: [id number] documented in this encounter Miscellaneous Notes Miscellaneous - Mallorie Navarro - 08/02/2015 8:53 AM CDT PHQ-9 Document Has Been Updated PHQ-9 Entered On: 08/03/2015 8:54 CDT Performed On: 08/02/2015 8:53 CDT by MALLORIE NAVARRO LPN PHQ-9 Little interest or pleasure in doing things : Several days Feeling down, depressed, or hopeless : More than half the days Trouble falling or staying asleep, or sleeping too much : More than half the days Feeling tired or having little energy : Nearly every day Poor appetite or overeating : Nearly every day Feeling bad about yourself or that you are a failure : More than half the days Trouble concentrating on things : More than half the days Moving or speaking slowly; restless or fidgety : More than half the days Thoughts that you would be better off /hurting self : Not at all PHQ-9 Calculated Score : 17 Problems make work, home, or dealing with others : Somewhat difficult MALLORIE NAVARRO LPN - 08/03/2015 8:55 CDT [facility] Document Id: [id number] CDT!13 Miscellaneous - Svetlana Solano P.A.-C. - 06/14/2015 8:19 AM CDT Normal Results Letter 14 June 2015 [facility] NG [address] [facility] [id number] Dear KEILY NG, I am pleased to report that your results from the following diagnostic test(s) are normal. Please follow up with us as we discussed during your visit or sooner if you have any concerns. If you have questions or concerns, please do not hesitate to call our office. Result Name Current Result Previous Result Normal Range TSH (mIU/L) 3.23 06/12/2015 1.76 08/05/2014 0.27 - 4.20 Sincerely, SVETLANA SOLANO [address] [place] [address] Electronic Signature Electronically Signed By: SVETLANA SOLANO PA-C On: 14 June 2015 This document has images extracted. Source: [facility] POWERCHART Document Id: [id number] Electronically signed by Wendi [facility] Developing Machine Tender [id number] at 04/20/2017 10:22 PM CDT Miscellaneous - Svetlana Solano P.A.-C. - 06/12/2015 3:46 PM CDT Ambulatory Patient Summary [address] [place], [place] [phone] Visit Information Name: KEILY NG [facility] Number: [id number] Current Date: 06/12/2015 15:46:38 Physicians Attending Provider: SVETLANA SOLANO PA-C Primary Care Provider: KAREN FUENTES MD [...] Take Indications/Special Instructions/Comments/Notes for Patient Medication Changes/Routing etonogestrel (etonogestrel) Implant, once levonorgestrel-ethinyl estradiol (Alesse 100 mcg-20 mcg oral tablet) 1 Tablet(s), Oral, once a day *multivitamin, ( Multivitamins with Folic Acid 1 mg oral capsule) 1 cap, Oral, oncea day * You have let us know that you are not taking this medication as listed. Please talk with your primary care provider or the health care provider who prescribed the medication as soon as possible. Stop Taking the Following Medications: Medication list as of 06-12-15 15:46 Attention: If you have any medications at [...] Electronically Signed By: SVETLANA SOLANO PA-C Signed On:12-JUN-2015 15:46:33 Your Allergies & Intolerances Substance Reaction Symptoms [...] if you dont have one. Go to [email or web address] and click on Create Your Account. Then, follow the directions to complete the online form. Youll be asked for your [facility] number which you can find at the top of this document. Your Goals/Additional instructions: Source: [facility] POWERCHART Document Id: [id number] Miscellaneous - Svetlana oSlano P.A.-C. - 06/12/2015 3:46 PM CDT Ambulatory Discharge Medication List [address] [id number] Visit Information Name: KEILY NG [facility] Number: [id number] Visit Date: 06/12/2015 15:46:37 Attending Provider: SVETLANA SOLANO PA-C Primary Care Provider: KAREN FUENTES MD [...] Take Indications/Special Instructions/Comments/Notes for Patient Medication Changes/Routing etonogestrel (etonogestrel) Implant, once levonorgestrel-ethinyl estradiol (Alesse 100 mcg-20 mcg oral tablet) 1 Tablet(s), Oral, once a day *multivitamin, ( Multivitamins with Folic Acid 1 mg oral capsule) 1 cap, Oral, oncea day * You have let us know that you are not taking this medication as listed. Please talk with your primary care provider or the health care provider who prescribed the medication as soon as possible. Stop Taking the Following Medications: Medication list as of 06-12-15 15:46 Attention: If you have any medications at [...] Electronically Signed By: SVETLANA SOLANO PA-C Signed On:12-JUN-2015 15:46:33 Additional Information: Source: [facility] POWERCHART Document Id: [id number] Miscellaneous - Terri Hollingsworth LAmarisP.N. - 06/12/2015 3:18 PM CDT Adult Stiff Straw Hat Washer Intake/History Adult Stiff Straw Hat Washer Intake/History Entered On: 06/12/2015 15:21 CDT Performed On: 06/12/2015 15:18 CDT by TERRI HOLLINGSWORTH LPN Intake Chief Complaint : wants to talk about weight gain since getting the control implant Peripheral Pulse Rate : 80 /min Respiratory Rate : 16 /min Systolic Blood Pressure : 104 mmHg Diastolic Blood Pressure : 72 mmHg NIBP Mean : 83 mmHg BP Location : Right upper extremity Blood Pressure Cuff Size : Regular Height : 152 cm(Converted to: 5 ft 0 inch(es), 60 inch(es)) Actual Weight : 75.0 kg(Converted to: 165 lb 6 oz) Dosing Weight Clinic : 75 kg Clinic BSA : 1.78 Body Mass Index : 32.46 kg/m2 TERRI HOLLINGSWORTHGoran PIRES - 06/12/2015 15:18 CDT General Info Information Given By : Patient Languages : Slovenian Is Patient Female and 13-50 no hysterectomy : No TERRI HOLLINGSWORTHGoran PIRES - 06/12/2015 15:18 CDT Subjective Pain Symptoms : No TERRI HOLLINGSWORTH LEXIS - 06/12/2015 15:18 CDT Dependent Habits Tobacco Use/Currently Using : No Exposure to Tobacco Smoke : Patient smokes Smoking Status : Former smoker TERRI HOLLINGSWORTHGoran PIRES - 06/12/2015 15:18 CDT Tobacco Use Grid Type : Cigarettes TERRI HOLLINGSWORTH DYANA PIRES - 06/12/2015 15:18 CDT Caffeine Use Grid Caffeine Use : None TERRI HOLLINGSWORTH DYANA PIRES - 06/12/2015 15:18 CDT Recreational Drug Use Grid Drug Use : None TERRI HOLLINGSWORTHGoran PIRES - 06/12/2015 15:18 CDT Source: [place] [facility] Document Id: [id number] CDT!34 documented in this encounter Plan of Treatment Upcoming Encounters Date Type Specialty Care Team Description 08/30/2022 Clinical Communication Admitting/Central Scheduling 09/02/2022 Comprehensive Visit Endocrinology Ricardo Winkler APRN, C.N.P., D.N.P. [address] [place] [address] documented as of this encounter Procedures Procedure Name Priority Date/Time Associated Diagnosis Comme nts THYROID-STIMULATING Routine 06/12/2015 3:50 PM Re sults for this HORMONE-SENSITIVE CDT procedure are in (S-TSH) the results section. documented in this encounter Results Thyroid-Stimulating Hormone-Sensitive (s-TSH) (06/12/2015 3:50 PM CDT) P athologist Signature TSH 3.23 0.27 - 4.20 POWERCHART (Thyrotropin) MIUL Specimen (Source) Anatomical Collection Method Collection Time Re ceived Time Location / / Volume Laterality Blood 06/12/2015 3:50 PM CDT Svetlana Solano P.A.-C. LAB BLOOD ADD-ON Performing Organization Address City/State/ZIP Code Phon e Number POWERCHART documented in this encounter Visit Diagnoses Not on filedocumented in this encounter Additional Health Concerns Assessment Noted Time PHQ-9 Depression Total Score: 17 08/02/2015 8:53 AM CD T documented as of this encounter
--- OUTSIDE RECORDS SUMMARY | 2022-08-16 21:33 | XMS_ITS | Encounter Summary ---
:1985 Author Organization [facility] Address [address] [place] [address] Care Team Providers Name Role Phone Unavailable Primary Care Provider Unavailable Encounter Details Date Type Department Care Team Description 12/29/2014 Hospital Encounter HX [facility] Jade Ding, SILVIO, C.N.P. [address] [place], [place] [phone] (Wo rk) Social History [...] do you attend sabianism or Never 2021 [employer]aritan services? Do you [...] Sign Reading Time Taken Comments Blood Pressure 86/58 12/29/2014 11:00 AM DIGITAL COLOR PRESS OPERATOR Pulse - - Temperature - - Respiratory Rate - - Oxygen Saturation - - Inhaled Oxygen Concentration - - Weight 74.9 kg (165 lb 2 oz) 12/29/2014 11:00 AM DIGITAL COLOR PRESS OPERATOR Height 152 cm (4' 11.84) 12/29/2014 11:00 AM DIGITAL COLOR PRESS OPERATOR Body Mass Index 32.42 12/29/2014 11:00 AM DIGITAL COLOR PRESS OPERATOR documented in this encounter Progress Notes Jade Navarro, SILVIO, CAmarisNAmarisP. - 12/29/2014 10:55 AM CST [id number] CHIEF COMPLAINT/REASON FOR VISIT Gestational diabetic education. HISTORY OF PRESENT ILLNESS Keily is a 29-year-old, 6, para 3, who is 32 and 2/7th weeks gestation today. She did fail her 1-hour glucose check with a results of 170. A 3-hour was then performed, she also failed. The fasting was 80, 1 hour was 197, 2 hour was 157 [address] Enriquez talked to her about gestational diabetes and recommend that she meet with me for gestational diabetic education. She is here today to do that. The patient states that she had similar results in previous pregnancies, but did not have to do self testing, so she is a little frustrated that she has to do self testing. Nonetheless, she was very willing to move forward to initiate the testing. She did bring her glucometer with her today. She has not used it previously on herself, but states that she has checked blood sugars on other people. We went through the setup process and she was able to obtain her own blood sugar today and the result was 95 and this was approximately 2 hours after eating breakfast. We showed her how to record on that paper that we will have her bring back to each appointment in the future with Dr. Enriquez. Put her kit together and she will keep that on her, trying to check her sugar 4 times a day, fasting and 2 hours after meals. Following her demonstration of proper use of the glucometer, we went into discussion surrounding diet and exercise. Multiple handouts were given for her. We discussed carbohydratecounting and recommendations for daily consumption, the importance of not skipping breakfast and consuming small snacks in between each meal. She seemed to grasp the concept quite well and verbalized understanding of this discussion. States that her activity typically involves chasing her children around the house throughout the day, planning their meals, cooking their meals, doing laundry. States that she goes up and down her steps many times throughout the day to clean the house and do laundry andtend to her children and the meals. She is not specifically interested in adding any additional activity at this point in time. MEDICATIONS vitamins with folic acid. ALLERGIES No known allergies. PAST MEDICAL/SURGICAL HISTORY As per EMR. VITAL SIGNS Blood pressure 86/58, height 152, weight 74.9, BMI 32.42. PHYSICAL EXAMINATION Not performed today. IMPRESSION/REPORT/PLAN Gestational diabetic education. PLAN: Provided patient with gestational diabetic education today. She was able to demonstrate properself glucose monitoring and recording. We spent time discussing dietary measures and going over handouts together. She plans to work hard to stick to this diet, keep her sugars normal. She has followupwith Dr. Enriquez in 1 week. She will bring her glucometer and/or her paper that she is recording her sugars with her to that appointment. At this point, she verbalizes understanding of this information and has no further concerns or questions. BILLING Forty minutes of time was spent with the patient and greater than 50% of this time was spent in counseling and education. Jade Navarro CNP/cristiano Electronically Signed By: JADE NAVARRO RN, CNP On: 12/30/2014 01:21 PM Source: [facility] [place] MARYSDOLBEYNALLISONSYS Document Id: [id number] TAL COLOR PRESS OPERATOR documented in this encounter Miscellaneous Notes Miscellaneous - Jade Navarro APRN, C.N.P. - 12/29/2014 11:46 AM DIGITAL COLOR PRESS OPERATOR Ambulatory Patient Summary [address] [id number] Visit Information Name: KEILY NG [facility] Number: [id number] Current Date: 12/29/2014 11:46:34 Physicians Attending Provider: JADE NAVARRO RN, CNP Primary Care Provider: KAREN FUENTES MD KEILY [...] the Following Medications: Medication list as of 12-29-14 11:46 Attention: If you have any medications at home that are not on this list, DO NOT take them until youcontact your provider for clarification. Give a copy of your medication list to your primary care provider. Update your medication list any time medications or doses are changed and carry your medication list at all times in case of emergency. Electronically Signed By: JADE NAVARRO RN ENTERPRISE SERVICES MANAGER Signed On:29-DEC-2014 11:46:30 Your Allergies & Intolerances Substance Reaction Symptoms [...] Your Upcoming Appointments Date Time Location Provider 01/05/2015 14:00 [facility] Mina GALLARDO, Jhonny Dockery Attention: Contact your local Clinic if further appointment detail needed. Your Goals/Additional instructions: Source: [facility] [place] POWERCHART Document Id: [id number] TAL COLOR PRESS OPERATOR Nikhil - Jade Navarro APRN, C.N.P. - 12/29/2014 11:46 AM DIGITAL COLOR PRESS OPERATOR Ambulatory Discharge Medication List [address] [id number] Visit Information Name: KEILY NG [facility] Number: [id number] Visit Date: 12/29/2014 11:46:33 Attending Provider: JADE NAVARRO RN ENTERPRISE SERVICES MANAGER Primary Care Provider: KAREN FUENTES MD KEILY [...] the Following Medications: Medication list as of 12-29-14 11:46 Attention: If you have any medications at home that are not on this list, DO NOT take them until youcontact your provider for clarification. Give a copy of your medication list to your primary care provider. Update your medication list any time medications or doses are changed and carry your medication list at all times in case of emergency. Electronically Signed By: JADE NAVARRO RN ENTERPRISE SERVICES MANAGER Signed On:29-DEC-2014 11:46:30 Additional Information: Source: [facility] POWERCHART Document Id: [id number] TAL COLOR PRESS OPERATOR Miscellaneous - Yulisa Manzo L.P.N. - 12/29/2014 11:00 AM CST Adult Senior Group Manager Intake/History Adult Senior Group Manager Intake/History Entered On: 12/29/2014 11:02 DIGITAL COLOR PRESS OPERATOR Performed On: 12/29/2014 11:00 DIGITAL COLOR PRESS OPERATOR by YULISA MANZO LPN Intake Chief Complaint : GDM education 32 2/7 weeks LMP Date : 05/18/14 Systolic Blood Pressure : 86 mmHg (<LLOW) Diastolic Blood Pressure : 58 mmHg NIBP Mean : 67 mmHg BP Location : Left upper extremity Blood Pressure Cuff Size : Regular Height : 152 cm(Converted to: 5 ft 0 inch(es), 60 inch(es)) Actual Weight : 74.9 kg(Converted to: 165 lb 2 oz) Weight Source : Standing scale Dosing Weight Clinic : 74.9 kg Clinic BSA : 1.78 Body Mass Index : 32.42 kg/m2 YULISA MANZO LPN - 12/29/2014 11:00 DIGITAL COLOR PRESS OPERATOR General Info Information Given By : Patient Languages : Kinyarwanda Is Patient Female and 13-50 no hysterectomy : Yes Status : Confirmed positive Are you ? : No YULISA MANZO LPN - 12/29/2014 11:00 DIGITAL COLOR PRESS OPERATOR Subjective Pain Symptoms : No YULISA MANZO LPN - 12/29/2014 11:00 DIGITAL COLOR PRESS OPERATOR Dependent Habits Tobacco Use/Currently Using : Yes Exposure to Tobacco Smoke : Patient smokes Smoking Status : Current every day smoker YULISA MANZO LPN - 12/29/2014 11:00 DIGITAL COLOR PRESS OPERATOR Tobacco Use Grid Type : Cigarettes Cigarette Use Packs/Day : 0.2 YULISA MANZO LPN 12/29/2014 11:00 DIGITAL COLOR PRESS OPERATOR Caffeine Use Grid Caffeine Use : None YULISA MANZO LPN - 12/29/2014 11:00 DIGITAL COLOR PRESS OPERATOR Recreational Drug Use Grid Drug Use : None YULISA MANZO LPN - 12/29/2014 11:00 DIGITAL COLOR PRESS OPERATOR ID Screen Drug Resistant Organism : No Travel Within Last 21 Days : No YULISA MANZO LPN - 12/29/2014 11:00 DIGITAL COLOR PRESS OPERATOR Source: [facility] [place] POWERCHART Document Id: [id number] DIGITAL COLOR PRESS OPERATOR!40 TAL COLOR PRESS OPERATOR documented in this encounter Plan of Treatment Upcoming Encounters Date Type Specialty Care Team Description 08/30/2022 Clinical Communication Admitting/Central Scheduling 09/02/2022 Comprehensive Visit Endocrinology Ricardo Winkler APRN, C.N.P., D.N.P. [address] [place] [address] [place] [phone] documented as of this encounter Visit Diagnoses Not on filedocumented in this encounter Additional Health Concerns Assessment Noted Time PHQ-9 Depression Total Score: 22 10/04/2013 2:31 PM CS T documented as of this encounter
--- OUTSIDE RECORDS SUMMARY | 2022-08-16 21:33 | XMS_ITS | Encounter Summary ---
:1985 Author Organization [facility] Address [address] [place] [address] Care Team Providers Name Role Phone Unavailable Primary Care Provider Unavailable Encounter Details Date Type Department Care Team Description 04/07/2015 Hospital Encounter HX [facility] Narinder De [...] or relatives? How often do you attend congregation or Never 2021 restorationist services? Do you belong to any clubs or No 01/25/2022 organizations such as congregation groups, unions, fraternal or athletic groups, or [...] Sign Reading Time Taken Comments Blood Pressure 94/58 04/07/2015 1:45 PM CDT Pulse 80 04/07/2015 1:45 PM CDT Temperature - - Respiratory Rate - - Oxygen Saturation - - Inhaled Oxygen Concentration - - Weight 73.8 kg (162 lb 11.2 oz) 04/07/2015 1:45 PM CDT Height 152 cm (4' 11.84) 04/07/2015 1:45 PM CDT Body Mass Index 31.94 04/07/2015 1:45 PM CDT documented in this encounter Progress Notes Narinder Enriquez M.D. - 04/07/2015 1:40 PM CDT [id number] CHIEF COMPLAINT/REASON FOR VISIT Nexplanon insertion. HISTORY OF PRESENT ILLNESS This patient is a 29-year-old G6, P4-0-2-4 female who presents for Nexplanon insertion. She had a vaginal delivery on 02/17/2015. The patient is doing well. She is nursing exclusively. She has not had a menses since delivery. She has not had intercourse since delivery. She has thought about her contraception options and would like Nexplanon for long-term contraception. The patient has previously received counseling and reviewed the literature on Nexplanon. She has no complaints. No vaginal itching, irritation or discharge. No vaginal bleeding. No difficulty urinating. ALLERGIES No known drug allergies. MEDICATIONS 1. Generic vitamins. 2. Nexplanon inserted today. PAST MEDICAL/SURGICAL HISTORY PAST MEDICAL HISTORY: 1. Gestational diabetes. 2. History of tobacco abuse, quit 2013. 3. History of depression and bipolar disorder. 4. History of cervical dysplasia in 2005. 5. History of polycystic ovarian syndrome. PAST SURGICAL HISTORY: 1. Laparoscopic appendectomy, 2012. 2. LEEP procedure, 2005. PAST OBSTETRICAL HISTORY: 1. Vaginal delivery x4. 2. Miscarriage x2. SOCIAL HISTORY The patient quit smoking in 2013. No alcohol or drug use. No history of STD or PID. She has a history of abnormal Pap smears and underwent a LEEP procedure in 2005. She has had normal followup Pap smears. VITAL SIGNS Weight 73.8 kg, height 152 cm. Pulse 80, blood pressure 94/58. PHYSICAL EXAMINATION GENERAL: Well-developed, well-nourished female, in no apparent distress. Alert and oriented x3. ABDOMEN: Soft, nontender, nondistended. Positive bowel sounds. No hepatomegaly. No rebound. No guarding. EXTREMITIES: No clubbing, cyanosis, or edema. Nontender bilaterally. GENITALIA: Deferred. PROCEDURE I reviewed the risks, benefits, alternatives, and indication of Nexplanon insertion with the patient. The patient verbalizes understanding and desires to proceed. [place] protocol form completed. I prepped and draped the medial aspect of left upper arm in the usual fashion. I marked the insertion site and location of the Nexplanon capsule in the usual fashion. I cleaned the area with Betadine. I injected 3 mL of 1% lidocaine for local pain control. I made a small stab incision at the end of the marked insertion site with a scalpel. I obtained the Nexplanon insertion catheter and passed it throughthe stab incision and subcutaneously under the skin along the marked insertion site. The Nexplanon ca psule was then deployed in the usual fashion. The insertion catheter was removed. The Nexplanon capsule is palpated in the correct location. The patient is able to palpate the Nexplanon capsule. Steri-Strips were placed over the small stab incision. There is good hemostasis. The patient tolerated the p rocedure well. A pressure bandage was placed over the site in the usual fashion. All sponge, lap, needle, and instrument counts are correct x2. IMPRESSION/REPORT/PLAN 1. Contraception counseling. 2. Nexplanon insertion. 3. Nursing. PLAN: 1. I encouraged nursing. 2. I discussed the risks, benefits, alternatives, and indication of Nexplanon with the patient. I reviewed with the patient this is effective for contraception for 3 years and will need to be removed or replaced in March 2018. I discussed the failure rate. I discussed the risk for irregular bleeding. I d iscussed the side effects. The patient verbalizes understanding and desires to proceed. Nexplanon was inserted as mentioned above without difficulty. 3. The patient may resume normal activities without restrictions. 4. I recommend the patient be seen annually for examination including pelvic and Pap smear. 5. I would be happy to see the patient on an as-needed basis. Narinder Enriquez M.D./cristiano Electronically Signed By: NARINDER ENRIQUEZ MD On: 04/07/2015 04:40 PM Source: [facility] MHSDOLBEYNONRADSYS Document Id: [id number] documented in this encounter Miscellaneous Notes Miscellaneous - Narinder Enriquez M.D. - 04/07/2015 1:58 PM CDT Ambulatory Patient Summary [address] [id number] Visit Information Name: SAMUEL NG [facility] Number: [id number] Current Date: 04/07/2015 13:58:07 Physicians Attending Provider: NARINDER ENRIQUEZ MD Primary [...] Patient Medication Changes/Routing etonogestrel (etonogestrel) Implant, once New multivitamin, ( Multivitamins with Folic Acid 1 mg oral capsule) 1 cap, Oral, once a day Stop Taking the Following Medications: Medication list as of 04-07-15 13:58 Attention: If you have any medications at [...] Electronically Signed By: NARINDER ENRIQUEZ MD Signed On:07-APR-2015 13:58:01 Your Allergies & Intolerances Substance Reaction Symptoms [...] appointment detail needed. Your Goals/Additional instructions: Source: [facility] [employer]CHART Document Id: [id number] Miscellaneous - Narinder Enriquez M.D. - 04/07/2015 1:58 PM CDT Ambulatory Discharge Medication List [address] [id number] Visit Information Name: SAMUEL NG [facility] Number: [id number] Visit Date: 04/07/2015 13:58:06 Attending Provider: NARINDER ENRIQUEZ MD Primary Care [...] Patient Medication Changes/Routing etonogestrel (etonogestrel) Implant, once New multivitamin, ( Multivitamins with Folic Acid 1 mg oral capsule) 1 cap, Oral, once a day Stop Taking the Following Medications: Medication list as of 04-07-15 13:58 Attention: If you have any medications at [...] Electronically Signed By: NARINDER ENRIQUEZ MD Signed On:07-APR-2015 13:58:01 Additional Information: Source: [facility] Openfolio Document Id: [id number] Miscellaneous - Susana Morgan L.P.N. 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 Entered On: 04/07/2015 13:47 CDT Performed On: 04/07/2015 13:45 CDT by SUSANA MORGAN LPN Intake Chief Complaint : Nexplanon placement Peripheral Pulse Rate : 80 /min Systolic Blood Pressure : 94 mmHg Diastolic Blood Pressure : 58 mmHg NIBP Mean : 70 mmHg BP Location : Right upper extremity Blood Pressure Cuff Size : Regular Height : 152 cm(Converted to: 5 ft 0 inch(es), 60 inch(es)) Actual Weight : 73.8 kg(Converted to: 162 lb 11 oz) Dosing Weight Clinic : 73.8 kg Clinic BSA : 1.77 Body Mass Index : 31.94 kg/m2 SUSANA MORGAN LPN - 04/07/2015 13:45 CDT General Info Information Given By : Patient Languages : Divehi Is Patient Female and 13-50 no hysterectomy : Yes Status : Patient denies Are you ? : Yes SUSANA MORGAN LPN - 04/07/2015 13:45 CDT Subjective Pain Symptoms : No SUSANA MORGAN LPN - 04/07/2015 13:45 CDT Dependent Habits Tobacco Use/Currently Using : Yes Exposure to Tobacco Smoke : Patient smokes Smoking Status : Current every day smoker SUSANA MORGAN LPN - 04/07/2015 13:45 CDT Tobacco Use Grid Type : Cigarettes SUSANA MORGAN LPN - 04/07/2015 13:45 CDT Caffeine Use Grid Caffeine Use : None SUSANA MORGAN LPN - 04/07/2015 13:45 CDT Recreational Drug Use Grid Drug Use : None SUSANA MORGAN LPN 04/07/2015 13:45 CDT ID Screen Drug Resistant Organism : No Travel Within Last 21 Days : No Contact with someone with Ebola : No SUSANA MORGAN LPN - 04/07/2015 13:45 CDT Source: [facility] [employer] Document Id: [id number] CDT!39 documented in this encounter Plan of Treatment Upcoming Encounters Date Type Specialty Care Team Description 08/30/2022 Clinical Communication Admitting/Central Scheduling 09/02/2022 Comprehensive Visit Endocrinology Ricardo Winkler APRN, C.N.P., D.N.P. [address] [place] [address] documented as of this encounter Visit Diagnoses Not on filedocumented in this encounter Additional Health Concerns Assessment Noted Time PHQ-9 Depression Total Score: 22 10/04/2013 2:31 PM CS T documented as of this encounter
--- OUTSIDE RECORDS SUMMARY | 2022-08-16 21:33 | XMS_ITS | Encounter Summary ---
:1985 Author Organization [facility] Address [address] [place] [address] Care Team Providers Name Role Phone Unavailable Primary Care Provider Unavailable Encounter Details Date Type Department Care Team Description 02/24/2015 Hospital Encounter HX [facility] Narinder De [...] do you attend zoroastrianism or Never 2021 orthodox services? Do you [...] Sign Reading Time Taken Comments Blood Pressure 94/72 02/24/2015 1:52 PM CDT Pulse 82 02/24/2015 1:52 PM CDT Temperature - - Respiratory Rate - - Oxygen Saturation - - Inhaled Oxygen Concentration - - Weight 69.2 kg (152 lb 8.9 oz) 02/24/2015 1:52 PM CDT Height 152 cm (4' 11.84) 02/24/2015 1:52 PM CDT Body Mass Index 29.95 02/24/2015 1:52 PM CDT documented in this encounter Progress Notes Narinder Enriquez M.D. - 02/24/2015 1:45 PM CDT [id number] CHIEF COMPLAINT/REASON FOR VISIT 1. visit. 2. Discuss contraception. HISTORY OF PRESENT ILLNESS This patient presents for an early visit. She is a 29-year-old, G6, P4-0-2-4 female, who had a vaginal delivery on 02/17/2015. The patient is nursing. She has a history of gestational diabetes. She is doing well. She reports minimal lochia which has not completely stopped. She has no further pain, cramping, tenderness, or discomfort. No difficulty urinating. No change in bowel habits. No headaches or vision changes. No depression symptoms. The patient presents for early visit, and she would like to discuss contraception options. ALLERGIES No known drug allergies. MEDICATIONS Generic [...] delivery 08/16/2008. 3. Vaginal delivery 11/06/2010. 4. Vaginal delivery 02/17/2015, 39-2/7 weeks, male , 3430 g. 5. Miscarriage 2004. 6. Miscarriage 2005. SOCIAL HISTORY Patient quit smoking in 2013. No alcohol or drug use. No history of STD or PID. VITAL SIGNS Weight 69.2 kg, height 152 cm. Pulse 82, blood pressure 94/72. PHYSICAL EXAMINATION GENERAL: Well-developed, well-nourished female in no apparent distress. Alert and oriented x3. ABDOMEN: Soft, nontender, nondistended. Positive bowel sounds. Fundus is firm and nontender just above the pubic symphysis. EXTREMITIES: No clubbing, cyanosis, or edema. Nontender bilaterally. GENITALIA: Deferred. IMPRESSION/REPORT/PLAN 1. Normal visit after vaginal delivery on 02/17/2015. 2. Nursing. 3. Contraception counseling. PLAN: 1. Contraception options are discussed with the patient. I reviewed the risks, benefits, alternatives, and indication of control pills, Depo-Provera, Ortho Evra patch, NuvaRing, Nexplanon, MirenaIUD, ParaGard IUD, and condoms. The patient is interested in Nexplanon. 2. I reviewed the risks, benefits, alternatives, and indications of Nexplanon with the patient. I gave the patient literature to review. 3. Routine precautions are reviewed with the patient. 4. I would like the patient to follow up in 4 weeks for formal visit including pelvic exam and Pap smear, or be seen sooner as needed. 5. I recommend she remain abstinent until she is on reliable contraception. 6. The patient does desire Nexplanon. We will order the Nexplanon device for the patient and then insert it at a future visit. Narinder Enriquez M.D./cristiano Electronically Signed By: NARINDER ENRIQUEZ MD On: 02/27/2015 08:35 AM Source: [facility] MHSDOLBEYNONRADSYS Document Id: [id number] documented in this encounter Miscellaneous Notes Miscellaneous - Narinder Enriquez M.D. - 02/24/2015 3:00 PM CDT Ambulatory Patient Summary [address] [id number] Visit Information Name: SAMUEL NG [facility] Number: [id number] Current Date: 02/24/2015 15:00:34 Physicians Attending Provider: NARINDER ENRIQUEZ MD Primary [...] the Following Medications: Medication list as of 02-24-15 15:00 Attention: If you have any medications at [...] Electronically Signed By: NARINDER ENRIQUEZ MD Signed On:24-FEB-2015 15:00:30 Your Allergies & Intolerances Substance Reaction Symptoms [...] Your Upcoming Appointments Date Time Location Provider 03/24/2015 13:30 [facility] [employer] [facility]NAGER Narinder Enriquez MD Attention: Contact your local Clinic if further appointment detail needed. Your Goals/Additional instructions: Source: [facility] POWERCHART Document Id: [id number] Miscellaneous - Narinder Enriquez M.D. - 02/24/2015 3:00 PM CDT Ambulatory Discharge Medication List [address] [id number] Visit Information Name: SAMUEL NG [facility] Number: [id number] Visit Date: 02/24/2015 15:00:32 Attending Provider: NARINDER ENRIQUEZ MD Primary Care [...] the Following Medications: Medication list as of 02-24-15 15:00 Attention: If you have any medications at [...] Electronically Signed By: NARINDER ENRIQUEZ MD Signed On:24-FEB-2015 15:00:30 Additional Information: Source: [facility] POWERCHART Document Id: [id number] Miscellaneous - Susana Morgan, L.P.N. 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 Entered On: 02/24/2015 13:55 CDT Performed On: 02/24/2015 13:52 CDT by SUSANA MORGAN LPN Intake Chief Complaint : Post Peripheral Pulse Rate : 82 /min Systolic Blood Pressure : 94 mmHg Diastolic Blood Pressure : 72 mmHg NIBP Mean : 79 mmHg BP Location : Right upper extremity Blood Pressure Cuff Size : Regular Height : 152 cm(Converted to: 5 ft 0 inch(es), 60 inch(es)) Actual Weight : 69.2 kg(Converted to: 152 lb 9 oz) Weight Source : Standing scale Dosing Weight Clinic : 69.2 kg Clinic BSA : 1.71 Body Mass Index : 29.95 kg/m2 EDDIE SUSANA Tesfaye [facility] - 02/24/2015 13:52 CDT General Info Information Given By : Patient Languages : Austrian Is Patient Female and 13-50 no hysterectomy : Yes Status : Confirmed positive Are you ? : Yes SUSANA MORGAN [facility] - 02/24/2015 13:52 CDT Subjective Pain Symptoms : No SUSANA MORGAN [facility] - 02/24/2015 13:52 CDT Dependent Habits Tobacco Use/Currently Using : Yes Exposure to Tobacco Smoke : Patient smokes Smoking Status : Current every day smoker SUSANA MORGAN [facility] 02/24/2015 13:52 CDT Tobacco Use Grid Type : Cigarettes Last Use : 07/07 SUSANA MORGAN [facility] 02/24/2015 13:52 CDT Caffeine Use Grid Caffeine Use : None SUSANA MORGAN [facility] 02/24/2015 13:52 CDT Recreational Drug Use Grid Drug Use : None SUSANA MORGAN [facility] 02/24/2015 13:52 CDT ID Screen Drug Resistant Organism : No Travel Within Last 21 Days : No Contact with someone with Ebola : No SUSANA MORGAN [facility] 02/24/2015 13:52 CDT Source: [employer] Document Id: [id number] CDT!41 documented in this encounter Plan of Treatment Upcoming Encounters Date Type Specialty Care Team Description 08/30/2022 Clinical Communication Admitting/Central Scheduling 09/02/2022 Comprehensive Visit Endocrinology Ricardo Winkler APRN, C.N.P., D.N.P. [address] [place] [address] documented as of this encounter Visit Diagnoses Not on filedocumented in this encounter Additional Health Concerns Assessment Noted Time PHQ-9 Depression Total Score: 22 10/04/2013 2:31 PM CS T documented as of this encounter
--- OUTSIDE RECORDS SUMMARY | 2022-08-16 21:33 | XMS_ITS | Encounter Summary ---
:1985 Author Organization [facility] Address [address] [place] [address] Care Team Providers Name Role Phone Unavailable Primary Care Provider Unavailable Encounter Details Date Type Department Care Team Description 12/08/2015 Hospital Encounter HX [facility] Christi Davis M.D. [address] [place], [place] [address] (Wo rk) Social History Tobacco Use Types [...] or relatives? How often do you attend latter-day or Never 2021 holiness services? Do you belong to any clubs or No 01/25/2022 organizations such as latter-day groups, unions, fraternal or athletic groups, or [...] Sign Reading Time Taken Comments Blood Pressure 120/80 12/08/2015 3:36 PM INSULATION INSTALLER Pulse 84 12/08/2015 3:36 PM INSULATION INSTALLER Temperature - - Respiratory Rate - - Oxygen Saturation - - Inhaled Oxygen Concentration - - Weight 76.5 kg (168 lb 10.4 oz) 12/08/2015 3:36 PM INSULATION INSTALLER Height 152 cm (4' 11.84) 12/08/2015 3:36 PM INSULATION INSTALLER Body Mass Index 33.11 12/08/2015 3:36 PM INSULATION INSTALLER documented in this encounter Progress Notes Aneesh Davis M.D. - 12/08/2015 3:57 PM CST Clinic Full Note CHIEF COMPLAINT/REASON FOR VISIT Left knee pain that began yesterday afternoon. HISTORY OF PRESENT ILLNESS Pt presents today with c/o left knee pain that occurred shortly after going downstairs in her home yesterday. There was no recalled accident or injury. She recalls distant (early adolescence) fall onto left knee while playing gymnastics with resulting patella dislocation that is seemingly described as treated by manual christianity.. Since the pain started yesterday, it has remained persistent although worse with ambulation but no variability with going up or down stairs. Her knee has not locked up or given-out on her. There has been now swelling noted. MEDICATIONS albuterol 5 mg/mL (0.5%) inhalation solution, 2.5 mg, 0.5 mL, Inhalation, q6hr, PRN Ortho Evra 150 mcg-35 mcg/24 hr transdermal film, extended release, 1 patch(es), Apply one patch each week for 3 weeks (21 total days); followed by one week that is patch-free., Topical, Weekly, 11 refills ALLERGIES NKA PAST MEDICAL HISTORY Chronic Bipolar disorder, depressed Depressive disorder, major, recurrent episode Diabetes Mellitus Gestational Preg Antepartum Headache (PAGAN) Tension Chronic Pain Musculoskeletal Personal History of Cervical Dysplasia Polycystic ovarian disease Tobacco Use Disorder Historical , spontaneous, complete , spontaneous, complete Normal Preg Not First 1st Preg state, other PROCEDURES/SURGICAL HISTORY Insertion of etonogestrel implant (04/07/2015), Vaginal delivery only (with or without episiotomy and/or forceps);.. (02/17/2015), Laparoscopy, surgical, appendectomy.. (12/25/2012), Vaginal delivery only (with or without episiotomy and/or forceps);.. (11/06/2010), Vaginal delivery only (with or without episiotomy and/or forceps);.. (08/16/2008), Colposcopy of the cervix including upper/adjacent vagina; with biopsy(s) of the cervix and endocervical curettage.. (2005), Complete miscarriage. (2005), Complete miscarriage. (2004), Vaginal delivery only (with or without episiotomy and/or forceps);.. (02/10/2002). SOCIAL HISTORY Date Time: 12/08/2015 15:36 Tobacco: Smoking Status: Former smoker Exposure: Other: former. Quit 06/2014 Alcohol: Use: No Results Found Recreational Drugs: Use: None Type: No Results Found FAMILY HISTORY No qualifying data available. VITAL SIGNS HR: 84 BP: 120 / 80 HT: 152 cm WT: 76.5 kg BMI: 33.11 PHYSICAL EXAMINATION EXTR: no clubbing, cyanosis, or edema. Capillary refill at 2 seconds throughout both upper and lower extremities bilaterally. Left knee symmetric (grossly) vs right. No effusion noted in left knee. Pthas pain along the medial joint line as well as posteriorly when the left knee is extended back to neutral position from a flexed position of 90 degrees. NEURO: Aware and oriented x3. customer relationship specialist II-XII grossly intact and non-focal. PSYCH: pt is euthymic. Pt shows no delusions or hallucinations. Pt denies any violent ideation. No psychomotor agitation present. Speech normal flow. Insight adequate. IMPRESSION/REPORT/PLAN Sprain Knee Medial Collateral Ligament (MCL) Initial L I am uncertain about the degree of injury. Pt advised to ice and use ibuprofen (800mg PO TID with food). Referral to Ortho ([facility]) made. Pt also advised to refrain from bending, kneeling, squatting to avoid further strain to knee. Ordered: OV Est Pt Level 3 - 01708 - 15 min Electronically Signed By: ANEESH DAVIS MD On: 12/08/2015 04:07 PM Source: [facility] POWERCHART Document Id: [id number] LATION INSTALLER documented in this encounter Nursing Notes Aneesh Davis M.D. - 12/08/2015 4:07 PM CST Ambulatory Patient Education The following Patient Education Materials have been given to the patient: Patient Education Materials: Orthopaedics Treating Medial Collateral Ligament (MCL) Problems Orthopaedics Treating Medial Collateral Ligament (MCL) Problems Pre-Op Checklist Stop taking aspirin and other medications as advised by your doctor 7 days before surgery. Arrange to get crutches to use during recovery. Dont eat or drink 10 hours before surgery. Arrange for someone to drive you home after surgery. There are two options for treating an MCL injury: nonsurgical and surgical. Nonsurgical treatment isused more often. With either option, rehabilitation will be part of your treatment. Nonsurgical Treatment This treatment starts with rest, icing, and elevation. This relieves pain and swelling. In the next stage, you begin exercises designed to increase your knees range of motion, strength, and flexibility. Using crutches or a brace rests your joint, helping it to heal. Your doctor may secure the ligament to the bone with screws. Your doctor may stitch or staple your ligament together. Surgery Surgery is seldom used to repair an MCL injury. But sometimes it is advised, especially if another part of your knee is damaged. Open surgery is used to screw, staple, or stitch the MCL back into place. Depending on their location, other knee injuries may be repaired using arthroscopy. With arthroscopy, a tiny camera lets your doctor see inside the joint. Tools inserted through small incisions are used to repair the joint. After Surgery Right after surgery, youll spend a few hours in a recovery unit. Your knee will be bandaged and yourleg elevated. Your knee will also be iced and put in a brace to keep it from bending. Depending on the procedure, your physical therapy may begin shortly after surgery. This may include light exercises. ?? [phone] [facility], [address] [place] [address]. All rights reserved. This information is not intended as a substitute for professional medical care. Always follow your healthcare professional's instructions. This document has images extracted. Please consider using KDS for all your patient education needs. Source: [facility] POWER[facility]ART Document Id: [id number] LATION INSTALLER Aneesh Davis M.D. - 12/08/2015 4:07 PM CST Ambulatory Patient Education The following Patient Education Materials have been given to the patient: Patient Education Materials: Orthopaedics Treating Medial Collateral Ligament (MCL) Problems Orthopaedics Treating Medial Collateral Ligament (MCL) Problems Pre-Op Checklist Stop taking aspirin and other medications as advised by your doctor 7 days before surgery. Arrange to get crutches to use during recovery. Dont eat or drink 10 hours before surgery. Arrange for someone to drive you home after surgery. There are two options for treating an MCL injury: nonsurgical and surgical. Nonsurgical treatment isused more often. With either option, rehabilitation will be part of your treatment. Nonsurgical Treatment This treatment starts with rest, icing, and elevation. This relieves pain and swelling. In the next stage, you begin exercises designed to increase your knees range of motion, strength, and flexibility. Using crutches or a brace rests your joint, helping it to heal. Your doctor may secure the ligament to the bone with screws. Your doctor may stitch or staple your ligament together. Surgery Surgery is seldom used to repair an MCL injury. But sometimes it is advised, especially if another part of your knee is damaged. Open surgery is used to screw, staple, or stitch the MCL back into place. Depending on their location, other knee injuries may be repaired using arthroscopy. With arthroscopy, a tiny camera lets your doctor see inside the joint. Tools inserted through small incisions are used to repair the joint. After Surgery Right after surgery, youll spend a few hours in a recovery unit. Your knee will be bandaged and yourleg elevated. Your knee will also be iced and put in a brace to keep it from bending. Depending on the procedure, your physical therapy may begin shortly after surgery. This may include light exercises. ?? [phone] [facility], [address] [place] [address], [place] [address]. All rights reserved. This information is not intended as a substitute for professional medical care. Always follow your healthcare professional's instructions. This document has images extracted. Please consider using KDS for all your patient education needs. Source: [facility] Document Id: [id number] LATION INSTALLER documented in this encounter Miscellaneous Notes Miscellaneous - Aneesh Davis M.D. - 12/08/2015 4:07 PM CST Ambulatory Patient Summary [address] [id number] Visit Information Name: SAMUEL NG [facility] Number: [id number] Current Date: 12/08/2015 16:07:54 Physicians Attending Provider: ANEESH DAVIS MD Primary Care Provider: KAREN FUENTES MD SAMUEL NG has been given the following list of follow-up instructions, medication list, and patient education materials: Follow-up Instructions With: Address: When: Follow up with primary care provider , only if needed Your Medications Here is a list of [...] the Following Medications: Medication list as of 12-08-15 16:07 Attention: If you have any medications at home that are not on this list, DO NOT take them until youcontact your provider for clarification. Give a copy of your medication list to your primary care provider. Update your medication list any time medications or doses are changed and carry your medication list at all times in case of emergency. Electronically Signed By: ANEESH DAVIS MD Signed On:08-DEC-2015 16:07:17 Your Allergies & Intolerances Substance Reaction Symptoms [...] local Clinic if further appointment detail needed. Treating Medial Collateral Ligament (MCL) Problems Pre-Op Checklist Stop taking aspirin and other medications as advised by your doctor 7 days before surgery. Arrange to get crutches to use during recovery. Dont eat or drink 10 hours before surgery. Arrange for someone to drive you home after surgery. There are two options for treating an MCL injury: nonsurgical and surgical. Nonsurgical treatment isused more often. With either option, rehabilitation will be part of your treatment. Nonsurgical Treatment This treatment starts with rest, icing, and elevation. This relieves pain and swelling. In the next stage, you begin exercises designed to increase your knees range of motion, strength, and flexibility. Using crutches or a brace rests your joint, helping it to heal. Your doctor may secure the ligament to the bone with screws. Your doctor may stitch or staple your ligament together. Surgery Surgery is seldom used to repair an MCL injury. But sometimes it is advised, especially if another part of your knee is damaged. Open surgery is used to screw, staple, or stitch the MCL back into place. Depending on their location, other knee injuries may be repaired using arthroscopy. With arthroscopy, a tiny camera lets your doctor see inside the joint. Tools inserted through small incisions are used to repair the joint. After Surgery Right after surgery, youll spend a few hours in a recovery unit. Your knee will be bandaged and yourleg elevated. Your knee will also be iced and put in a brace to keep it from bending. Depending on the procedure, your physical therapy may begin shortly after surgery. This may include light exercises. ?? [id number] Ren [facility], [address] [place] [address], [place] [address]. All rights reserved. This information is not intended as a substitute for professional medical care. Always follow your healthcare professional's instructions. Consider Using Patient Online Services Patient Online [...] if you dont have one. Go to [email or web address] and click on Create Your Account. Then, follow the directions to complete the online form. Youll be asked for your [facility] number which you can find at the top of this document. Your Goals/Additional instructions: This document has images extracted. Please consider using KDS for all your patient education needs. Source: [facility]OWER[facility]ART Document Id: [id number] LATION INSTALLER Miscellaneous - Aneesh Davis M.D. - 12/08/2015 4:07 PM CST Ambulatory Discharge Medication List [address] [id number] Visit Information Name: SAMUEL NG [facility] Number: [id number] Visit Date: 12/08/2015 16:07:52 Attending Provider: ANEESH DAVIS MD Primary Care Provider: KAREN FUENTES MD [...] the Following Medications: Medication list as of 12-08-15 16:07 Attention: If you have any medications at home that are not on this list, DO NOT take them until youcontact your provider for clarification. Give a copy of your medication list to your primary care provider. Update your medication list any time medications or doses are changed and carry your medication list at all times in case of emergency. Electronically Signed By: ANEESH DAVIS MD Signed On:08-DEC-2015 16:07:17 Additional Information: Source: [facility]OWER[facility]ART Document Id: [id number] LATION INSTALLER Miscellaneous - Kenyetta Ruiz L.PAmarisN. - 12/08/2015 3:36 PM CST Adult Lab Manager Intake/History Adult Lab Manager Intake/History Entered On: 12/08/2015 15:39 INSULATION INSTALLER Performed On: 12/08/2015 15:36 INSULATION INSTALLER by KENYETTA RUIZ LPN Intake Chief Complaint : Left knee pain that began yesterday afternoon. Peripheral Pulse Rate : 84 /min Heart Rhythm : Regular Systolic Blood Pressure : 120 mmHg Diastolic Blood Pressure : 80 mmHg NIBP Mean : 93 mmHg BP Location : Left upper extremity Blood Pressure Cuff Size : Regular Height : 152 cm(Converted to: 5 ft 0 inch(es), 60 inch(es)) Actual Weight : 76.5 kg(Converted to: 168 lb 10 oz) Weight Source : Standing scale Dosing Weight Clinic : 76.5 kg Clinic BSA : 1.8 Body Mass Index : 33.11 kg/m2 KENYETTA RUIZ LPN - 12/08/2015 15:36 INSULATION INSTALLER General Info Information Given By : Patient Preferred Communication Mode : Verbal Languages : Azeri Is Patient Female and 13-50 no hysterectomy : Yes Status : Patient denies Are you ? : No KENYETTA RUIZ LPN - 12/08/2015 15:36 INSULATION INSTALLER Subjective Pain Symptoms : Yes KENYETTA RUIZ LPN - 12/08/2015 15:36 INSULATION INSTALLER Pain Scale Pain Scale Verbal 0-10 : Open KENYETTA RUIZ COMPRESS TRUCKER - 12/08/2015 15:36 INSULATION INSTALLER Pain Pain Assessment Grid Pain 1 Location : Knee Laterality : Left KENYETTA RUIZ COMPRESS TRUCKER - 12/08/2015 15:36 INSULATION INSTALLER Dependent Habits Exposure to Tobacco Smoke : Other: former. Quit 06/2014 Smoking Status : Former smoker Tobacco 2A : Yes Tobacco Use/Currently Using : No Tobacco Use/Last 30 Days : No Tobacco Use/Last 12 months : No KENYETTA RUIZ COMPRESS TRUCKER - 12/08/2015 15:36 INSULATION INSTALLER Caffeine Use Grid Caffeine Use : None KENYETTA RUIZ COMPRESS TRUCKER - 12/08/2015 15:36 INSULATION INSTALLER Recreational Drug Use Grid Drug Use : None KENYETTA RUIZ COMPRESS TRUCKER - 12/08/2015 15:36 INSULATION INSTALLER [facility]: [facility] Document Id: [id number] INSULATION INSTALLER!45 LATION INSTALLER documented in this encounter Plan of Treatment Upcoming Encounters Date Type Specialty Care Team Description 08/30/2022 Clinical Communication Admitting/Central Scheduling 09/02/2022 Comprehensive Visit Endocrinology Ricardo Winkler APRN, C.N.P., D.N.P. [address] [place] [phone] documented as of this encounter Visit Diagnoses Not on filedocumented in this encounter Additional Health Concerns Assessment Noted Time PHQ-9 Depression Total Score: 17 08/02/2015 8:53 AM CD T documented as of this encounter
--- OUTSIDE RECORDS SUMMARY | 2022-08-16 21:33 | XMS_ITS | Encounter Summary ---
:1985 Author Organization [facility] Address [address] [place] [address] Care Team Providers Name Role Phone Unavailable Primary Care Provider Unavailable Encounter Details Date Type Department Care Team Description 03/24/2015 Hospital Encounter HX [facility] Narinder De [...] do you attend taoist or Never 2021 church services? Do you [...] Reading Time Taken Comments Blood Pressure 98/62 03/24/2015 1:43 PM CDT Pulse 78 03/24/2015 1:43 PM CDT Temperature - - Respiratory Rate - - Oxygen Saturation - - Inhaled Oxygen Concentration - - Weight 70.8 kg (156 lb 1.4 oz) 03/24/2015 1:43 PM CDT Height 152 cm (4' 11.84) 03/24/2015 1:43 PM CDT Body Mass Index 30.64 03/24/2015 1:43 PM CDT documented in this encounter Progress Notes Narinder Enriquez M.D. - 03/24/2015 1:40 PM CDT [id number] CHIEF COMPLAINT/REASON FOR VISIT visit. HISTORY OF PRESENT ILLNESS This patient is a 29-year-old G6, P4-0-2-4 female, who presents for visit. She had a vaginal delivery on 02/17/2015. The patient is nursing exclusively. She is doing well. She has no complaints. Her vaginal bleeding and lochia has resolved. She has no pain, cramping, tenderness or discomfort. No difficulty urinating. No dysuria, hematuria or flank pain. No nausea or vomiting. No change in bowel habits. No fevers or chills. No depression symptoms. The patient would like Nexplanon for long-term contraception. ALLERGIES No known drug allergies. MEDICATIONS Generic vitamins. SYSTEMS REVIEW Per HPI. Otherwise negative. PAST MEDICAL/SURGICAL HISTORY PAST MEDICAL HISTORY: 1. Gestational diabetes. 2. History of tobacco abuse, quit 2013. 3. History of depression and bipolar disorder. 4. History of cervical dysplasia. 5. History of polycystic ovarian syndrome. PAST SURGICAL HISTORY: 1. Laparoscopic appendectomy, 2012. 2. LEEP procedure 2005. PAST OBSTETRICAL HISTORY: 1. Vaginal delivery x4. 2. Miscarriage x2. SOCIAL HISTORY The patient quit smoking in 2013. She denies alcohol or drug use. No history of STD or PID. She has a history of abnormal Pap smears and underwent a LEEP procedure and 2005. Her followup Pap smears have been normal. ADULT PREVENTIVE SERVICES Tobacco use denied. Pap smear is 08/05/2014 up to date. Influenza 09/05/2014 up to date. Lipid panel03/18/2014 up to date. Tetanus 12/29/2009 up to date. Depression denied. Asthma denied. VITAL SIGNS Weight 70.8 kg, height 152 cm. Pulse 78, blood pressure 98/62. PHYSICAL EXAMINATION GENERAL: Well-developed, well-nourished female, in no apparent distress. Alert and oriented x3. HEAD/NECK: Within normal limits. Oropharynx is clear. No cervical adenopathy or tenderness. No thyromegaly or tenderness. LUNGS: Clear to auscultation bilaterally with good inspiratory effort. HEART: Regular rate and rhythm without murmur. BREASTS: Deferred as nursing. ABDOMEN: Soft, nontender, nondistended. Positive bowel sounds. No hepatosplenomegaly. No rebound. Noguarding. EXTREMITIES: No clubbing, cyanosis, or edema. Nontender bilaterally. GENITALIA: Normal external female genitalia. Normal BUS. Normal vaginal rugae without lesions. Normal multiparous cervical os without lesions. No cervical motion tenderness. Uterus normal size, shape, consistency, anteflexed, mobile, nontender. No adnexal masses or tenderness bilaterally. IMPRESSION/REPORT/PLAN 1. Normal examination after vaginal delivery on 02/17/2015. 2. Nursing. 3. Contraception counseling. PLAN: 1. Routine precautions are reviewed with patient. 2. Nursing is encouraged. 3. Routine depression precautions are reviewed with patient. 4. Patient may resume normal activities. 5. I recommend the patient remain abstinent until she is on reliable contraception. 6. Contraception options are discussed with the patient. I reviewed the risks, benefits, alternatives, and indication of control pills, Depo-Provera, Ortho Evra patch, NuvaRing, Nexplanon, MirenaIUD, ParaGard IUD and condoms. 7. Patient is interested in Nexplanon for long-term contraception. I reviewed the risks, benefits, alternatives, and indication of Nexplanon with patient. I reviewed with the patient this is effective for 3 years. I discussed the failure rate. I discussed the small risk for irregular bleeding. I discussed the small risk for infection. The patient desires to proceed. 8. An order form for Nexplanon has been completed by the patient and we will send this off to the glass production machine operator. We will contact the patient when the Nexplanon device arrives. 9. I would like to see the patient back within the next 2 weeks for Nexplanon insertion. We will contact the patient when the Nexplanon device arrives. 10. I recommend the patient remain abstinent until after the Nexplanon is placed to ensure there is no accidental . 11. I recommend the patient be seen annually for examination including pelvic exam and Pap smear. Narinder Enriquez M.D./cristiano Electronically Signed By: NARINDER ENRIQUEZ MD On: 03/27/2015 08:06 AM Source: [facility] MHSDOLBEYNONRADSYS Document Id: [id number] documented in this encounter Miscellaneous Notes Miscellaneous - Narinder Enriquez M.D. - 03/24/2015 2:50 PM CDT Ambulatory Patient Summary [address] [id number] Visit Information Name: SAMUEL NG [facility] Number: [id number] Current Date: 03/24/2015 14:50:30 Physicians Attending Provider: NARINDER ENRIQUEZ MD Primary [...] the Following Medications: Medication list as of 03-24-15 14:50 Attention: If you have any medications at [...] Electronically Signed By: NARINDER ENRIQUEZ MD Signed On:24-MAR-2015 14:50:27 Your Allergies & Intolerances Substance Reaction Symptoms [...] Your Upcoming Appointments Date Time Location Provider 04/07/2015 13:30 [facility] JIG BORING MACHINE SET UP OPERATOR Narinder Enriquez MD Attention: Contact your local Clinic if further appointment detail needed. Your Goals/Additional instructions: Source: [facility] POWERCHART Document Id: [id number] Miscellaneous - Narinder Enriquez M.D. - 03/24/2015 2:50 PM CDT Ambulatory Discharge Medication List [address] [id number] Visit Information Name: SAMUEL NG [facility] Number: [id number] Visit Date: 03/24/2015 14:50:29 Attending Provider: NARINDER ENRIQUEZ MD Primary Care [...] the Following Medications: Medication list as of 03-24-15 14:50 Attention: If you have any medications at [...] Electronically Signed By: NARINDER ENRIQUEZ MD Signed On:24-MAR-2015 14:50:27 Additional Information: Source: [facility] POWERCHART Document Id: [id number] Miscellaneous - Susana Morgan L.P.N. - 03/24/2015 1:43 PM CDT Adult Powder Monkey Intake/History Adult Powder Monkey Intake/History Entered On: 03/24/2015 13:47 CDT Performed On: 03/24/2015 13:43 CDT by SUSANA MORGAN LPN Intake Chief Complaint : Post Peripheral Pulse Rate : 78 /min Systolic Blood Pressure : 98 mmHg Diastolic Blood Pressure : 62 mmHg NIBP Mean : 74 mmHg BP Location : Right upper extremity Blood Pressure Cuff Size : Regular Height : 152 cm(Converted to: 5 ft 0 inch(es), 60 inch(es)) Actual Weight : 70.8 kg(Converted to: 156 lb 1 oz) Weight Source : Standing scale Dosing Weight Clinic : 70.8 kg Clinic BSA : 1.73 Body Mass Index : 30.64 kg/m2 SUSANA MORGAN LPN - 03/24/2015 13:43 CDT General Info Information Given By : Patient Languages : Thai Is Patient Female and 13-50 no hysterectomy : Yes Status : Confirmed positive Are you ? : Yes SUSANA MORGAN LPN - 03/24/2015 13:43 CDT Subjective Pain Symptoms : No SUSANA MORGAN LPN - 03/24/2015 13:43 CDT Dependent Habits Tobacco Use/Currently Using : Yes Exposure to Tobacco Smoke : Patient smokes Smoking Status : Current every day smoker SUSANA MORGAN LPN - 03/24/2015 13:43 CDT Tobacco Use Grid Type : Cigarettes SUSANA MORGAN LPN - 03/24/2015 13:43 CDT Caffeine Use Grid Caffeine Use : None SUSANA MORGAN LPN - 03/24/2015 13:43 CDT Recreational Drug Use Grid Drug Use : None SUSANA MORGAN MANAGER MERCHANDISE - 03/24/2015 13:43 CDT ID Screen Drug Resistant Organism : No Travel Within Last 21 Days : No Contact with someone with Ebola : No SUSANA MORGAN MANAGER MERCHANDISE - 03/24/2015 13:43 CDT Source: [facility] POWERCHART Document Id: [id number] CDT!40 documented in this encounter Plan of Treatment Upcoming Encounters Date Type Specialty Care Team Description 08/30/2022 Clinical Communication Admitting/Central Scheduling 09/02/2022 Comprehensive Visit Endocrinology Ricardo Winkler, SILVIO, C.N.P., D.N.P. [address] [place] [address] documented as of this encounter Visit Diagnoses Not on filedocumented in this encounter Additional Health Concerns Assessment Noted Time PHQ-9 Depression Total Score: 22 10/04/2013 2:31 PM CS T documented as of this encounter
--- OUTSIDE RECORDS SUMMARY | 2022-08-16 21:33 | XMS_ITS | Encounter Summary ---
:1985 Author Organization [facility] Address [address] [place] [address] Care Team Providers Name Role Phone Unavailable Primary Care Provider Unavailable Encounter Details Date Type Department Care Team Description 01/26/2015 Hospital Encounter HX [facility] Narinder De [...] do you attend denominational or Never 2021 druze services? Do you [...] Sign Reading Time Taken Comments Blood Pressure 94/56 01/26/2015 2:03 PM RADAR TECHNICIAN Pulse - - Temperature - - Respiratory Rate - - Oxygen Saturation - - Inhaled Oxygen Concentration - - Weight 75.1 kg (165 lb 9.1 oz) 01/26/2015 2:03 PM RADAR TECHNICIAN Height 152 cm (4' 11.84) 01/26/2015 2:03 PM RADAR TECHNICIAN Body Mass Index 32.5 01/26/2015 2:03 PM RADAR TECHNICIAN documented in this encounter Progress Notes Narinder Enriquez M.D. - 01/26/2015 1:56 PM CST [id number] CHIEF COMPLAINT/REASON FOR VISIT OB. HISTORY OF PRESENT ILLNESS This patient is a 29-year-old G6, P3-0-2-3 female with LMP of 05/18/2014 and EDC of 02/22/2015 at 36and 2/7 weeks. She presents for OB visit. She is doing well. She has no complaints. She reports active movement. She denies leaking of fluid or vaginal bleeding. She denies pelvic pressure. She has irregular uterine contractions that resolve with rest. No current contractions. No headaches or vision changes. No depression symptoms. No shortness of breath or difficulty breathing. Her musculoskeletal pain and rib pain has resolved. The cat bite from last month has healed. She has finished the antibiotics. The patient has gestational diabetes. She is following ADA diet. She forgot to bring in her blood sugars for my review. She reports her fasting blood sugars are all less than 90 and her postprandials look good. ALLERGIES No known drug allergies. MEDICATIONS 1. Generic vitamins. 2. Tylenol #3 as needed. 3. Lidocaine topical gel as needed. PAST MEDICAL/SURGICAL HISTORY PAST MEDICAL HISTORY: 1. Right rib musculoskeletal pain and discomfort, now asymptomatic. 2. History of tobacco abuse. Quit smoking 2013. 3. History of depression, bipolar disorder. 4. History of cervical dysplasia in 2005. 5. History of polycystic ovarian syndrome. PAST SURGICAL HISTORY: 1. Laparoscopic appendectomy in 2012. 2. LEEP procedure 2005. PAST OBSTETRICAL HISTORY: 1. Vaginal delivery 02/10/2002. 2. Vaginal delivery 08/16/2008. 3. Vaginal delivery 11/06/2010. 4. Miscarriage 2004. 5. Miscarriage 2005. VITAL SIGNS Weight 75.1 kg, height 152 cm. Blood pressure 94/56, pulse 66, respirations 16. PHYSICAL EXAMINATION GENERAL: Well-developed, well-nourished, gravid female in no apparent distress. Alert and oriented x3. ABDOMEN: Soft, gravid, nontender. Positive bowel sounds. Fundal height 36 cm. Positive heart tones 140 beats per minute. Vertex presentation by Ky's. EXTREMITIES: No clubbing, cyanosis, or edema. Nontender bilaterally. GENITALIA: Cervix is 1 cm dilated, 2 cm thick, 0 station. Cephalic presentation confirmed. DIAGNOSTICS Lab 01/26/2015, GBS culture obtained. Results are pending. IMMUNIZATIONS Adacel tetanus booster given to the patient today. IMPRESSION/REPORT/PLAN 1. Intrauterine at 36 and 2/7 weeks. Positive cardiac activity. 2. Gestational diabetes on [employer] [employer] diet. 3. Musculoskeletal discomfort and rib pain on the right, now resolved. PLAN: 1. Group B strep culture obtained today per protocol. I will review the results with the patient at her next visit. 2. I reviewed the risks, benefits, alternatives and indication of Adacel tetanus booster with the patient. I discussed the use of pertussis immunization in . Patient verbalizes understanding and desires to proceed. Adacel tetanus booster is given to the patient today. 3. I discussed the importance of good blood sugar control in . 4. I encouraged patient follow [place] [employer] diet. 5. I would like the patient to continue to check her blood sugars as directed and bring these in formy review at the next visit. 6. Routine OB precautions, recommendations, instructions are reviewed with patient including movement and kick counts. 7. Labor precautions reviewed with the patient. 8. I spent 25 minutes [id number] time with the patient with over 50% of that time spent in counseling. Narinder Enriquez M.D./cristiano Electronically Signed By: NARINDER ENRIQUEZ MD On: 01/26/2015 04:06 PM Source: [facility] MHSDOLBEYNALLISONSYS Document Id: [id number] R TECHNICIAN documented in this encounter Miscellaneous Notes Miscellaneous - Narinder Enriquez M.D. - 01/30/2015 8:10 AM CDT Normal Results Letter 30 January 2015 KEILY NG [address] [facility] [id number] Dear KEILY NG, I am pleased to report that your results from the following diagnostic test(s) are normal. Your GBS culture is negative. Please follow up with us as we discussed during your visit or sooner if you have any concerns. If you have questions or concerns, please do not hesitate to call our office. Result Name Current Result Strep B by PCR Review 01/26/2015 Sincerely, NARINDER ENRIQUEZ [address] [facility] [address] [place] [address] Electronic Signature Electronically Signed By: NARINDER ENRIQUEZ MD On: 30 January 2015 This document has images extracted. Source: [facility] POWERCHART Document Id: [id number] Electronically signed by Wendi [facility] Tax Accountant [id number] at 04/21/2017 3:23 PM CDT Miscellaneous - Narinder Enriquez M.D. - 01/26/2015 2:25 PM CST Ambulatory Patient Summary [facility] [address] [facility] [place] [id number] Visit Information Name: KEILY NG [facility] Number: [id number] Current Date: 01/26/2015 14:25:03 Physicians Attending Provider: NARINDER ENRIQUEZ MD Primary [...] the Following Medications: Medication list as of 01-26-15 14:25 Attention: If you have any medications at [...] Electronically Signed By: NARINDER ENRIQUEZ MD Signed On:26-JAN-2015 14:24:59 Your Allergies & Intolerances Substance Reaction Symptoms [...] Your Upcoming Appointments Date Time Location Provider 02/02/2015 14:00 [facility] NUT CHOPPER Narinder Enriquez MD 02/07/2015 14:30 [facility] NUT CHOPPER Narinder Enriquez MD 02/16/2015 14:30 [facility] NUT CHOPPER Mina GALLARDO, Narinder Dockery Attention: Contact your local Clinic if further appointment detail needed. Your Goals/Additional instructions: Source: [facility] POWERCHART Document Id: [id number] R TECHNICIAN Miscellaneous - Narinder Enriquez M.D. - 01/26/2015 2:25 PM CST Ambulatory Discharge Medication List [address] [id number] Visit Information Name: KEILY NG [facility] Number: [id number] Visit Date: 01/26/2015 14:25:02 Attending Provider: NARINDER ENRIQUEZ MD Primary Care [...] the Following Medications: Medication list as of 01-26-15 14:25 Attention: If you have any medications at [...] Electronically Signed By: NARINDER ENRIQUEZ MD Signed On:26-JAN-2015 14:24:59 Additional Information: Source: [facility] POWERCHART Document Id: [id number] R TECHNICIAN Miscellaneous - Yulisa Manzo, L.P.N. - 01/26/2015 2:03 PM CST Adult Food Assembler [employer] Kitchen Intake/History Adult Food Assembler [employer] Kitchen Intake/History Entered On: 01/26/2015 14:04 RADAR TECHNICIAN Performed On: 01/26/2015 14:03 RADAR TECHNICIAN by YULISA MANZO LPN Intake Chief Complaint : Ob visit 36 2/7 weeks LMP Date : 05/18/14 Systolic Blood Pressure : 94 mmHg Diastolic Blood Pressure : 56 mmHg NIBP Mean : 69 mmHg BP Location : Right upper extremity Blood Pressure Cuff Size : Regular Height : 152 cm(Converted to: 5 ft 0 inch(es), 60 inch(es)) Actual Weight : 75.1 kg(Converted to: 165 lb 9 oz) Weight Source : Standing scale Dosing Weight Clinic : 75.1 kg Clinic BSA : 1.78 Body Mass Index : 32.51 kg/m2 YULISA MANZO LPN - 01/26/2015 14:03 RADAR TECHNICIAN General Info Information Given By : Patient Languages : Slovenian Is Patient Female and 13-50 no hysterectomy : Yes Status : Confirmed positive Are you ? : No YULISA MANZO LPN - 01/26/2015 14:03 RADAR TECHNICIAN Subjective Pain Symptoms : No YULISA MANZO LPN - 01/26/2015 14:03 RADAR TECHNICIAN Dependent Habits Tobacco Use/Currently Using : No Exposure to Tobacco Smoke : Patient smokes Smoking Status : Never smoker YULISA MANZO [facility] - 01/26/2015 14:03 RADAR TECHNICIAN Tobacco Use Grid Type : Cigarettes Last Use : 07/07 YULISA MANZO [facility] - 01/26/2015 14:03 RADAR TECHNICIAN Caffeine Use Grid Caffeine Use : None YULISA MANZO [facility] - 01/26/2015 14:03 RADAR TECHNICIAN Recreational Drug Use Grid Drug Use : None YULISA MANZO [facility] - 01/26/2015 14:03 RADAR TECHNICIAN ID Screen Drug Resistant Organism : No Travel Within Last 21 Days : No Contact with someone with Ebola : No YULISA MANZO [facility] - 01/26/2015 14:03 RADAR TECHNICIAN Source: [facility] POWERCHART Document Id: [id number] RADAR TECHNICIAN!41 R TECHNICIAN documented in this encounter Plan of Treatment Upcoming Encounters Date Type Specialty Care Team Description 08/30/2022 Clinical Communication Admitting/Central Scheduling 09/02/2022 Comprehensive Visit Endocrinology Ricardo Winkler, SILVIO, C.N.P., D.N.P. [address] [place] [id number] documented as of this encounter Procedures Procedure Name Priority Date/Time Associated Diagnosis Comme nts HXSTREP GROUP B BY Routine 01/26/2015 2:09 PM Res ults for this PCR RADAR TECHNICIAN procedure are i n the results section. documented in this encounter Results HXSTREP GROUP B BY PCR (01/26/2015 2:09 PM RADAR TECHNICIAN) [facility] gist Method Time Signature HXStrep Group POWERCHART B by PCR HXFinal Negative for POWERCHART Group B Strep by PCR. Specimen (Source) Anatomical Collection Method Collection Time Re ceived Time Location / / Volume Laterality Vaginal/Rectum 01/26/2015 2:09 PM RADAR TECHNICIAN Narinder Enriquez M.D. LAB HISTORICAL ORDERS Performing Organization Address City/State/ZIP Code Phon e Number POWERCHART documented in this encounter Visit Diagnoses Not on filedocumented in this encounter Additional Health Concerns Assessment Noted Time PHQ-9 Depression Total Score: 22 10/04/2013 2:31 PM CS T documented as of this encounter
--- OUTSIDE RECORDS SUMMARY | 2022-08-16 21:34 | XMS_ITS | Encounter Summary ---
:1985 Author Organization [facility] Address [address] [place] [address] Care Team Providers Name Role Phone Unavailable Primary Care Provider Unavailable Encounter Details Date Type Department Care Team Description 05/25/2014 Hospital Encounter HX [facility] Karen Dial i, M.D. [address] [place] [address] (Wo rk) Social History Tobacco [...] do you attend yazdanism or Never 2021 worship services? Do you [...] Sign Reading Time Taken Comments Blood Pressure 104/64 05/25/2014 12:17 PM CDT Pulse 68 05/25/2014 12:17 PM CDT Temperature - - Respiratory Rate 16 05/25/2014 12:17 PM CDT Oxygen Saturation - - Inhaled Oxygen Concentration - - Weight 76.3 kg (168 lb 3.4 oz) 05/25/2014 12:17 PM CDT Height 152 cm (4' 11.84) 05/25/2014 12:13 PM CDT Body Mass Index 33.02 05/25/2014 12:13 PM CDT documented in this encounter Progress Notes Karen Steinberg M.D. - 05/25/2014 12:12 PM CDT [id number] CHIEF COMPLAINT/ REASON FOR VISIT Review lab results. HISTORY OF PRESENT ILLNESS Keily is a 28 year old female who presents to the clinic today to review lab results. She has had several CBCs with mildly elevated white count. She recently had a peripheral smear, which was normal. She wonders if she may just have some mild recurrent infections. She has recently had a cough and other family members have been mildly ill. She complains of low back pain, which is new, and recent onset of intense urinary urgency and frequency. She has had no dysuria or hematuria. She has not had fevers, chills, or night sweats. Keily is having increasing difficulties with depression. She has been having a hard time getting out of bed, and finding the energy to care for her children and home. She recognizes that she has gained several pounds over the last several months. She attributes this to her depressive symptoms. She has been on anti-depressants in the past, but did not like the way they made her feel The patient denies any additional questions or concerns at this time. MEDICATIONS Post-visit Medication Reconciliation Reviewed and are as outlined in the EMR including 1. Wellbutrin SR 150mg BID. ALLERGIES No known allergies. SYSTEMS REVIEW See HPI. PAST MEDICAL/SURGICAL HISTORY 1. Polycystic ovarian syndrome. 2. Depression 3. History of cervical dysplasia. 4. Headache. 5. 5, para 3 PREVENTIVE SERVICES Tobacco use: Yes. VITAL SIGNS WEIGHT: 76.3 kg TEMPERATURE: 36.4 DegC PULSE: 68 /min RESPIRATORY RATE: 16 /min BLOOD PRESSURE: 104 mmHg/64 mmHg PHYSICAL EXAMINATION GENERAL: Patient is alert and oriented times three, weepy, good hygiene and is dressed appropriately. LYMPH NODES: Not palpably enlarged and no nodules are palpated. HEART: Regular rate and rhythm without murmur. LUNGS: Clear to auscultation. ABDOMEN: Soft and nontender with no masses. Mild tenderness in the suprapubic area. BACK: No CVA tenderness. IMPRESSION/REPORT/PLAN 1. Consistently mildly elevated white count: Etiology unclear. She feels that recurrent infection may be the cause. She currently has symptoms suggestive of UTI. UA and UC are pending. If she has urineinfection, will treat and repeat CBC in two weeks. If UA is negative, I will refer to hematology. 2. Depression: Prescribed Wellbutrin as she may find some appetite suppression effect. She will follow up with me in one month. 3. Follow up: The patient will contact the clinic with any new or worsening symptoms. This document serves as a record of services personally performed by Karen Reyes MD. It was created on their behalf by Keily Perea, a trained medical lab technician. The creation of this record is based on the scribe's personal observations and the provider's statements to them. This document has been matilda cked and approved by the attending provider. Karen Reyes M.D./carlo Electronically Signed By: KAREN REYES MD On: 06/20/2014 09:42 PM Source: [facility] MHSDOLBEYNONRADSYS Document Id: [id number] documented in this encounter Miscellaneous Notes Miscellaneous - Karen Steinberg M.D. - 05/27/2014 7:57 PM CDT Addendum by KAREN REYES MD on 01 June 2014 20:57:09 CDT From: KAREN REYES MD To: Family Medicine Nurse; Sent: 06/01/2014 20:57:09 CDT Subject: RE: thanks Addendum by JADA FRIED CMA on 01 June 2014 15:19:44 CDT From: JADA FRIED CMA ( Family Medicine Nurse) To: KAREN REYES MD; Sent: 06/01/2014 15:19:44 CDT Subject: FW: Addendum by DENG NAVARRO LPN on 01 June 2014 11:33:12 CDT spoke with pt. Indicates was instructed to discontinue the Wellbutrin. Also indicates was given Ativan to help relieve the panic attacks. Pt does indicate that she is doing better at this time. Also indicates that she has already made an appointment to be seen by hematology. Will also be scheduling another appointment with [facility], but declined transfer to scheduling at this time. Addendum by KAREN REYES MD on 31 May 2014 17:10:44 CDT From: KAREN REYES MD To: Family Medicine Nurse; Sent: 05/31/2014 17:10:44 CDT Subject: RE: I do want her to get referrred to Hematology Addendum by LUIS LEGGETT on 30 May 2014 10:10:17 CDT From: LUIS LEGGETT ( Family Medicine Nurse) To: KAREN REYES MD; Sent: 05/30/2014 10:10:17 CDT ! Subject: FW: Patient was called and notified. She stated that her urine is still on the dark side, the pain in the back is somewhat less. She would like to know if she should have a blood test, or see fishing lure assembler. Also she stated that she started with the Wellbutrin and Metformin on , She states that she is having mild to severe side effects. She says she is having panic attacks, she is easily irritated around her children, her heart is racing, body flush, and unable to eat and sleep. Patient stated that she is sensitive to medications and has only been taking the Wellbutrin and metformin once daily instead of twice daily. She would like a call back today. From: KAREN REYES MD To: EMMANUEL Family Medicine Nurse; Sent: 05/27/2014 19:57:52 CDT Please notify Keily that her urine culture is negative. If she continues to have symptoms, she'll need further evaluation. Source: [facility] POWERCHART Document Id: [id number] Electronically signed by Wendi [facility] Sergeant [id number] at 04/21/2017 11:10 PM CDT Miscellaneous - Karen Steinberg M.D. - 05/25/2014 11:56 PM CDT Ambulatory Patient Summary [address] [id number] Visit Information Name: KEILY NG [facility] Number: [id number] Current Date: 05/25/2014 23:56:11 Physicians Attending Provider: KAREN REYES MD Primary Care Provider: KAREN REYES MD KEILY NG has been given the [...] Take Indications/Special Instructions/Comments/Notes for Patient Medication Changes/Routing buPROPion (buPROPion SR 150 mg/12 hour oral tablet, sustained release) 1 Tablet(s), Oral, two times a day New Routed to [facility] [address] [place] [address] metFORMIN (metFORMIN 500 mg oral tablet) 1 Tablet(s), Oral, two times a day with meals [facility] [address] [place] [address] *norgestimate-ethinyl estradiol (TriNessa oral tablet) 1 Tablet(s), Oral, once a day * You have let us know that you are not taking this medication as listed. Please talk with your primary care provider or the health care provider who prescribed the medication as soon as possible. Stop Taking the Following Medications: Medication list as of 05-25-14 23:56 Attention: If you have any medications at home that are not on this list, DO NOT take them until youcontact your provider for clarification. Give a copy of your medication list to your primary care provider. Update your medication list any time medications or doses are changed and carry your medication list at all times in case of emergency. Electronically Signed By: KAREN REYES MD Signed On:25-MAY-2014 23:56:05 Your Allergies & Intolerances Substance Reaction Symptoms Category Comments No Known Allergies Drug Your Problem List Problem Status Onset Comments Tobacco Use Disorder Active 04/02/2010 Bipolar disorder, depressed Active Polycystic ovarian disease Active Personal History of Cervical Dysplasia Active 10/03/2006 Depressive disorder, major, recurrent episode Active Your Upcoming Appointments Date Time Location Reason Provider No Appointments found Attention: Contact your local Clinic if further appointment detail needed. Your Goals/Additional instructions: Source: [facility] POWERCHART Document Id: [id number] Miscellaneous - Karen Steinberg M.D. - 05/25/2014 11:56 PM CDT Ambulatory Discharge Medication List [address] [id number] Visit Information Name: KEILY NG [facility] Number: [id number] Visit Date: 05/25/2014 23:56:09 Attending Provider: KAREN REYES MD Primary Care Provider: KAREN REYES MD KEILY NG has been given the following list of medications: Your Medications It is important to take your medications as directed. Use a pill box or chart to help remind you to take your medications. Please let your doctor or nurse know if you have problems taking your medications. Medication/Strength How to Take Indications/Special Instructions/Comments/Notes for Patient Medication Changes/Routing buPROPion (buPROPion SR 150 mg/12 hour oral tablet, sustained release) 1 Tablet(s), Oral, two times a day New Routed to [facility] [address] [place] [address] metFORMIN (metFORMIN 500 mg oral tablet) 1 Tablet(s), Oral, two times a day with meals [facility] [address] [place] [address] *norgestimate-ethinyl estradiol (TriNessa oral tablet) 1 Tablet(s), Oral, once a day * You have let us know that you are not taking this medication as listed. Please talk with your primary care provider or the health care provider who prescribed the medication as soon as possible. Stop Taking the Following Medications: Medication list as of 05-25-14 23:56 Attention: If you have any medications at home that are not on this list, DO NOT take them until youcontact your provider for clarification. Give a copy of your medication list to your primary care provider. Update your medication list any time medications or doses are changed and carry your medication list at all times in case of emergency. Electronically Signed By: KAREN REYES MD Signed On:25-MAY-2014 23:56:05 Additional Information: Source: [facility] POWERCHART Document Id: [id number] Miscellaneous - Luis Leggett L.PMita - 05/25/2014 12:17 PM CDT Adult High Risk Ob Intake/History Adult High Risk Ob Intake/History Entered On: 05/25/2014 12:18 CDT Performed On: 05/25/2014 12:17 CDT by LUIS LEGGETT Intake Chief Complaint : office visit Temperature Core : 36.4 DegC(Converted to: 97.5 DegF) (LOW) Peripheral Pulse Rate : 68 /min Respiratory Rate : 16 /min Systolic Blood Pressure : 104 mmHg Diastolic Blood Pressure : 64 mmHg NIBP Mean : 77 mmHg BP Location : Left upper extremity Blood Pressure Cuff Size : Regular Actual Weight : 76.3 kg(Converted to: 168 lb 3 oz) Weight Source : Standing scale Dosing Weight Clinic : 76.3 kg LUIS LEGGETT - 05/25/2014 12:17 CDT General Info Information Given By : Patient Languages : Estonian LUIS LEGGETT - 05/25/2014 12:17 CDT Subjective Pain Symptoms : Yes LIUS LEGGETT - 05/25/2014 12:17 CDT Pain Pain Assessment Grid Pain 1 Location : Lower back Intensity : 4 LUIS LEGGETT - 05/25/2014 12:17 CDT Dependent Habits Tobacco Use/Currently Using : Yes Exposure to Tobacco Smoke : Patient smokes Smoking Status : Current every day smoker LUIS LEGGETT - 05/25/2014 12:17 CDT Tobacco Use Grid Type : Cigarettes Cigarette Use Packs/Day : 0.3 LUIS LEGGETT - 05/25/2014 12:17 CDT Caffeine Use Grid Caffeine Use : None LUIS LEGGETT - 05/25/2014 12:17 CDT Recreational Drug Use Grid Drug Use : None LUIS LEGGETT - 05/25/2014 12:17 CDT [facility] POWER[facility] Document Id: [id number]!38 documented in this encounter Plan of Treatment Upcoming Encounters Date Type Specialty Care Team Description 08/30/2022 Clinical Communication Admitting/Central Scheduling 09/02/2022 Comprehensive Visit Endocrinology Ricardo Winkler APRN, C.N.P., Roger.N.P. [address] [place] [address] documented as of this encounter Procedures Procedure Name Priority Date/Time Associated Comments Diagnosis BACTERIAL CULTURE, Routine 05/25/2014 1:00 PM Res ults for this AEROBIC, URINE CDT procedure are in the results section. HXUR % DYSMORPHIC RBC Routine 05/25/2014 1:00 PM Results for this CDT procedure are i n the results section. URINALYSIS WITH Routine 05/25/2014 1:00 PM Result s for this MICROSCOPIC CDT procedure are i n the results section. documented in this encounter Results Bacterial Culture, Aerobic, Urine (05/25/2014 1:00 PM CDT) Analysis Performed At Patho logist Time Signature Bacterial POWERCHART Culture, Aerobic, Urine HXPre No growth POWERCHART HXFinal No growth POWERCHART Specimen (Source) Anatomical Collection Method Collection Time Re ceived Time Location / / Volume Laterality Urine, Clean 05/25/2014 1:00 PM Catch CDT Karen Reyes M.D. LAB MICROBIOLOGY - GEN ERAL ORDERABLES Performing Organization Address City/State/ZIP Code Phon e Number POWERCHART HXUR % DYSMORPHIC RBC (05/25/2014 1:00 PM CDT) athologist Signature Dysmorphic RBC <=25 <=25 POWERCHART Specimen Anatomical Collection Method Collection Time Receive d Time (Source) Location / / Volume Laterality Urine 05/25/2014 1:00 PM 4 1:00 CDT PM CDT Karen Reyes M.D. LAB HISTORICAL ORDERS Performing Organization Address City/State/ZIP Code Phon e Number POWERCHART (ABNORMAL) Urinalysis, Complete, Includes Microscopic (05/25/2014 1:00 PM CDT) Patholo gist Method Time Signature HXUR WBC. 4-10 HPF POWERCHART HXUR RBC. 3-10 (A) HPF POWERCHART HXUR Bacteria, Present (A) POWERCHART Squamous 4-10 HPF POWERCHART Epithelial Protein, Ur, Dip Negative MGDL POWERCHART Source Clean Void POWERCHART Urine HXUr Color Yellow POWERCHART Glucose Negative MGDL POWERCHART HXBILIRUBIN Negative POWERCHART Ketones, QL(U) Negative MGDL POWERCHART Specific >=1.030 POWERCHART [place], POCT, U Clarity Cloudy (A) POWERCHART pH, POCT, Urine 5.5 POWERCHART HXBLOOD Small (A) POWERCHART Urobilinogen 0.2 MGDL POWERCHART HXNITRITE Negative POWERCHART Leukocyte Negative POWERCHART Esterase Specimen (Source) Anatomical Collection Method Collection Time Re ceived Time Location / / Volume Laterality Urine 05/25/2014 1:00 PM CDT Karen Reyes M.D. LAB URINE ORDERABLES Performing Organization Address City/State/ZIP Code Phon e Number POWERCHART documented in this encounter Visit Diagnoses Not on filedocumented in this encounter Additional Health Concerns Assessment Noted Time PHQ-9 Depression Total Score: 22 10/04/2013 2:31 PM CS T documented as of this encounter
--- OUTSIDE RECORDS SUMMARY | 2022-08-16 21:34 | XMS_ITS | Encounter Summary ---
:1985 Author Organization [facility] Address [address] [place] [id number] Care Team Providers Name Role Phone Unavailable Primary Care Provider Unavailable Encounter Details Date Type Department Care Team Description 08/05/2014 Hospital Encounter HX [facility] Narinder De [...] do you attend moravian or Never 2021 orthodox services? Do you [...] Sign Reading Time Taken Comments Blood Pressure 92/52 08/05/2014 8:52 AM CDT Pulse - - Temperature - - Respiratory Rate - - Oxygen Saturation - - Inhaled Oxygen Concentration - - Weight 73.2 kg (161 lb 6 oz) 08/05/2014 8:52 AM CDT Height 152 cm (4' 11.84) 08/05/2014 8:52 AM CDT Body Mass Index 31.68 08/05/2014 8:52 AM CDT documented in this encounter H&P Notes Narinder Enriquez M.D. - 08/05/2014 8:48 AM CDT [id number] CHIEF COMPLAINT/REASON FOR VISIT First OB history and physical examination. HISTORY OF PRESENT ILLNESS This patient is a 28-year-old, G6, P3-0-2-3 female with LMP of 05/18/2014 and EDC of 02/22/2015 at 11-3/7 weeks. Patient presents for first OB history and physical examination. She is doing well. Her nausea symptoms have resolved. No emesis. Her breast tenderness has resolved. No abdominal pain, cramping, tenderness, or discomfort. No nausea or vomiting. No change in bowel habits. No difficulty urinating. No dysuria, hematuria, or flank pain. No headaches, vision changes. No shortness of breath or chest pain. No fevers or chills. No depression symptoms. She is very excited to be . ALLERGIES No known drug allergies. MEDICATIONS Generic vitamins. SYSTEMS REVIEW As per HPI. Otherwise negative. PAST MEDICAL/SURGICAL HISTORY PAST MEDICAL HISTORY: 1. History of tobacco abuse. Patient reports quitting smoking in 07/28/2014. 2. History of bipolar disorder. 3. History of depression. 4. History of cervical dysplasia 2005. 5. History of polycystic ovarian syndrome. PAST SURGICAL HISTORY: 1. Laparoscopic appendectomy 2012. 2. LEEP procedure 2005. PAST OBSTETRICAL HISTORY: 1. Vaginal delivery 02/10/2002, 38 weeks, female infant, 6 pounds 0 ounces. 2. Vaginal delivery 08/16/2008, 38 weeks, female infant, 6 pounds 0 ounces. Complicated by labor. 3. Vaginal delivery 11/06/2010, 36-1/7 weeks, male infant, 5 pounds 3 ounces. 4. Miscarriage 2005, 11 weeks' gestation. 5. Miscarriage 2005, 13 weeks' gestation. SOCIAL HISTORY The patient smoked tobacco, 1/2 pack per day. She reports quitting on 07/28/2014. She denies alcoholor drug use. No history of STD or PID. No history of abuse. She did have a history of cervical dysplasia in 2006 underwent a LEEP procedure. She reports normal followup Pap smears. FAMILY HISTORY No diabetes or hypertension. No breast cancer, colon cancer, or ovarian cancer. No history of congenital anomalies. PREVENTIVE SERVICES: Tobacco use: No. Quit 07/28/2014. Pap smear: 08/05/2014. Chlamydia: 06/29/2014. Tetanus booster: 12/29/2009. Influenza: Recommended this be given in the fall. Gardasil: Up to date x3. Depression: Denied. Asthma: Denied. PHYSICAL EXAMINATION Weight 73.2 kg, height 152 cm, blood pressure 92/52, pulse 20, temperature 36.6. GENERAL: Well-developed, well-nourished female in no apparent distress. Alert and oriented x3. Normal affect. Patient appears groomed appropriately. SKIN: Normal without evidence of rashes or lesions. Several tattoos. HEAD: Within normal limits. ENT: Neck is supple and within normal limits. Oropharynx is clear. No cervical adenopathy or tenderness. Trachea is midline. THYROID: No thyromegaly or tenderness. BREASTS: No masses, tenderness, skin changes, adenopathy or discharge. HEART: Regular rate and rhythm without murmur. No rubs or gallops. No JVD. No peripheral vascular disease. LUNGS: Clear to auscultation bilaterally with good inspiratory effort. ABDOMEN: Soft, nontender, and nondistended. Positive bowel sounds. No enlarged groin nodes palpable.No hepatosplenomegaly. No rebound. No guarding. No evidence of hernias present. Positive Dop tones are auscultated, 152 beats per minute. RECTUM: Declined. GENITALIA: Normal external female genitalia. Normal BUS. Normal vaginal rugae without lesions. Normal multiparous cervical os without lesions. No cervical motion tenderness. Cervix is closed, 4 cm thick. Uterus: 12-weeks size, midposition, mobile, nontender. No adnexal masses or tenderness bilaterally. Pap smear obtained. SPINE: No CVA tenderness bilaterally. EXTREMITIES: No clubbing, cyanosis or edema. Nontender bilaterally. GAIT: Normal. NEUROLOGIC: No gross motor or sensory deficits noted. DIAGNOSTICS 08/05/2014, new OB labs obtained, results are pending. Pap smear obtained, result is pending. IMPRESSION/REPORT/PLAN 1. Intrauterine at 11-3/7 weeks. Positive cardiac activity. 2. History of tobacco abuse. Patient quit smoking 07/28/2014. 3. History of depression, currently asymptomatic. 4. History of cervical dysplasia status post a LEEP procedure 2005. 5. History of polycystic ovarian syndrome. Currently asymptomatic. PLAN: 1. New OB labs are obtained. I will contact the patient with the results. 2. Pap smear obtained. I will contact the patient with this result. 3. I encouraged the patient to continue smoking cessation efforts. 4. Routine OB precautions, recommendations, instructions are reviewed with patient including movement and kick counts. 5. Miscarriage precautions are reviewed with patient. 6. Routine depression precautions in are reviewed the patient. 7. I spent 30 minutes tjxi-sy-ozgd time with patient with over 50% of that time spent in counseling. HEALTH MAINTENANCE RECOMMENDATIONS: 1. Instructed to have complete physical exam once a year. 2. Instructed to see photo studio assistant and dentist at least once a year. [...] Electronically Signed By: NARINDER ENRIQUEZ MD On: 08/08/2014 08:48 AM Source: [facility] MHSDOLBEYNONRADSYS Document Id: [id number] documented in this encounter Miscellaneous Notes Telephone Encounter - Narinder Enriquez M.D. - 09/02/2014 12:00 AM CDT [id number] This patient is in no-showed for her appointment in the [facility] today. Narinder Enriquez M.D./cristiano Electronically Signed By: NARINDER ENRIQUEZ MD On: 09/05/2014 09:04 AM Source: [facility] MHSDOLBEYNONRADSYS Document Id: [id number] Nikhil - Narinder Enriquez M.D. - 08/15/2014 2:06 PM CDT Custom Result Letter 15 August 2014 KEILY NG [address] [facility] [id number] Dear KEILY NG, I am happy to inform you that your recent Pap smear has been read as normal or negative. This is very reassuring. I recommend following up with your next Pap smear in one year or sooner should you haveany problems. If you should have any questions, please do not hesitate to contact my office. We look forward to serving you again in the future. Result Name Current Result Spec Desc-Garcia See Comment 08/05/2014 ThPrep Scrn Accn-[place] [id number] 08/05/2014 ThPrep Scrn Cyto-[place] See Comment 08/05/2014 ThPrep Scrn Fnl-[place] See Comment 08/05/2014 Sincerely, NARINDER ENRIQUEZ [address] [place] [id number] Electronic Signature Electronically Signed By: NARINDER ENRIQUEZ MD On: 15 August 2014 This document has images extracted. Source: [facility] POWERCHART Document Id: [id number] Electronically signed by Wendi [facility] Work Environment Safety Inspector [id number] at 04/22/2017 10:32 AM CDT Nikhil - Narinder Enriquez M.D. - 08/05/2014 9:22 AM CDT Ambulatory Patient Summary [address] [id number] Visit Information Name: KEILY NG [facility] Number: [id number] Current Date: 08/05/2014 09:22:21 Physicians Attending Provider: NARINDER ENRIQUEZ MD Primary Care Provider: KAREN REYES MD [...] for Patient Medication Changes/Routing multivitamin, ( Multivitamins oral tablet) 1 Tablet(s), Oral, once a day Stop Taking the Following Medications: Medication list as of 08-05-14 09:22 Attention: If you have any medications at [...] Electronically Signed By: NARINDER ENRIQUEZ MD Signed On:05-AUG-2014 09:22:15 Your Allergies & Intolerances Substance Reaction Symptoms Category Comments No Known Allergies Drug Your Problem List Problem Status Onset Comments Tobacco Use Disorder Active 04/02/2010 Bipolar disorder, depressed Active Polycystic ovarian disease Active Personal History of Cervical Dysplasia Active 10/03/2006 Depressive disorder, major, recurrent episode Active Normal Preg Not First 1st Preg Active 06/29/2014 Your Upcoming Appointments Date Time Location Provider No Appointments found Attention: Contact your local Clinic if further appointment detail needed. Your Goals/Additional instructions: Source: [facility] POWERCHART Document Id: [id number] Miscellaneous - Narinder Enriquez M.D. - 08/05/2014 9:22 AM CDT Ambulatory Discharge Medication List [address] [id number] Visit Information Name: KEILY NG [facility] Number: [id number] Visit Date: 08/05/2014 09:22:20 Attending Provider: NARINDER ENRIQUEZ MD Primary Care Provider: KAREN REYES MD [...] for Patient Medication Changes/Routing multivitamin, ( Multivitamins oral tablet) 1 Tablet(s), Oral, once a day Stop Taking the Following Medications: Medication list as of 08-05-14 09:22 Attention: If you have any medications at [...] Electronically Signed By: NARINDER ENRIQUEZ MD Signed On:05-AUG-2014 09:22:15 Additional Information: Source: [facility] POWERCHART Document Id: [id number] Miscellaneous - Yulisa Morgan, L.P.N. 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 Intake/History Entered On: 08/05/2014 8:53 CDT Performed On: 08/05/2014 8:52 CDT by YULISA MORGAN LPN Intake Chief Complaint : Ob visit 11 3/7 weeks LMP Date : 05/18/14 Systolic Blood Pressure : 92 mmHg Diastolic Blood Pressure : 52 mmHg NIBP Mean : 65 mmHg BP Location : Right upper extremity Blood Pressure Cuff Size : Regular Height : 152 cm(Converted to: 5 ft 0 inch(es), 60 inch(es)) Actual Weight : 73.2 kg(Converted to: 161 lb 6 oz) Weight Source : Standing scale Dosing Weight Clinic : 73.2 kg Clinic BSA : 1.76 Body Mass Index : 31.68 kg/m2 RIOS MORGANAH Tesfaye [facility] - 08/05/2014 8:52 CDT General Info Information Given By : Patient Languages : Slovenian Is Patient Female and 13-50 no hysterectomy : Yes Status : Confirmed positive Are you ? : No EDDIEYULISA Tesfaye [facility] - 08/05/2014 8:52 CDT Subjective Pain Symptoms : No YULISA MORGAN [facility] - 08/05/2014 8:52 CDT Dependent Habits Tobacco Use/Currently Using : Yes Exposure to Tobacco Smoke : Patient smokes Smoking Status : Current every day smoker YULISA MORGAN [facility] - 08/05/2014 8:52 CDT Tobacco Use Grid Type : Cigarettes Cigarette Use Packs/Day : 0.2 YULISA MORGAN [facility] - 08/05/2014 8:52 CDT Caffeine Use Grid Caffeine Use : None YULISA MORGAN [facility] 08/05/2014 8:52 CDT Recreational Drug Use Grid Drug Use : None YULISA MORGAN [facility] 08/05/2014 8:52 CDT Source: [facility] [employer] Document Id: [id number] CDT!37 documented in this encounter Plan of Treatment Upcoming Encounters Date Type Specialty Care Team Description 08/30/2022 Clinical Communication Admitting/Central Scheduling 09/02/2022 Comprehensive Visit Endocrinology Ricardo Winkler APRN, C.N.P., D.N.P. [address] [place] [phone] documented as of this encounter Procedures Procedure Name Priority Date/Time Associated Diagnosis Comme nts THINPREP SCREEN HPV Routine 08/05/2014 8:59 AM Re sults for this REFLEX CDT procedure are i n the results section. ABO GROUPING, B Routine 08/05/2014 8:59 AM Result s for this CDT procedure are i n the results section. PROFILE II Routine 08/05/2014 8:59 AM Re sults for this WITHOUT CBC, CDT procedure are i n B/SERUM the results section. HIV-1/-2 AG AND AB Routine 08/05/2014 8:59 AM Res ults for this SCREEN CDT procedure are i n the results section. AUTOMATED Routine 08/05/2014 8:59 AM Results f or this DIFFERENTIAL, B CDT procedure ar e in the results section. 1,25-DIHYDROXYVITAM Routine 08/05/2014 8:59 AM Re sults for this IN D, S CDT procedure are i n the results section. CBC WITH Routine 08/05/2014 8:59 AM Results f or this DIFFERENTIAL, B CDT procedure ar e in the results section. ANTIBODY SCREEN, B Routine 08/05/2014 8:59 AM Res ults for this CDT procedure are i n the results section. THYROID-STIMULATING Routine 08/05/2014 8:59 AM Re sults for this HORMONE-SENSITIVE CDT procedure are in (S-TSH) the results section. documented in this encounter Results Antibody Screen (08/05/2014 8:59 AM CDT) athologist Signature Antibody Negative POWERCHART Screen Specimen (Source) Anatomical Collection Method Collection Time Re ceived Time Location / / Volume Laterality 08/05/2014 8:59 AM CDT Narinder Enriquez M.D. LAB BLOOD BANK TEST ORDERABL ES Performing Organization Address City/State/ZIP Code Phon e Number POWERCHART Grouping and Rh-Garcia FLIP, see #[id number] (08/05/2014 8:59 AM CDT) [facility] gist Method Time Signature HX Grouping O Positive POWERCHART and Rh Specimen (Source) Anatomical Collection Method Collection Time Re ceived Time Location / / Volume Laterality 08/05/2014 8:59 AM CDT Narinder Enriquez M.D. LAB BLOOD BANK TEST ORDERABL ES Performing Organization Address City/State/ZIP Code Phon e Number POWERCHART (ABNORMAL) Automated Differential (08/05/2014 8:59 AM CDT) [facility] gist Method Time Signature Absolute 11.58 (H) 1.70 - POWERCHART Neutrophils 7.00 109L Lymphocytes 2.16 0.90 - POWERCHART 2.90 X109L Monocytes 0.83 0.30 - POWERCHART 0.90 X109L Eosinophils 0.20 0.05 - POWERCHART 0.50 X109L Absolute 0.01 0.00 - POWERCHART Basophil 0.30 X109L Specimen Anatomical Collection Method Collection Time Receive d Time (Source) Location / / Volume Laterality Blood 08/05/2014 8:59 AM 4 8:59 CDT AM CDT Narinder Enriquez M.D. LAB BLOOD ADD-ON Performing Organization Address City/State/ZIP Code Phon e Number POWERCHART (ABNORMAL) CBC with Differential (08/05/2014 8:59 AM CDT) [facility] gist Method Time Signature Leukocytes 14.8 (H) 3.4 - 10.5 POWERCHART X109L Erythrocytes 3.54 (L) 3.90 - POWERCHART 5.03 [id number] Hemoglobin 11.3 (L) 12.0 - POWERCHART 15.5 GDL Hematocrit 34.2 (L) 34.9 - POWERCHART 44.5 MCV 96.6 82.0 - POWERCHART 98.0 FL Platelet Count 347 150 - 450 POWERCHART X109L HX RDW 13.8 11.9 - POWERCHART 15.5 HXDifferential? Auto POWERCHART Specimen (Source) Anatomical Collection Method Collection Time Re ceived Time Location / / Volume Laterality Blood 08/05/2014 8:59 AM CDT Narinder Enriquez M.D. LAB BLOOD ADD-ON Performing Organization Address City/[facility] Code Phon e Number POWERCHART Pathology ThinPrep Screen HPV Reflex (08/05/2014 8:59 AM CDT) [facility] Method Time Signature Interpretation [id number] POWERCHART HXThPrep Scrn See Comment POWERCHART Fnl-[place] Comment: A. ??ThinPrep Pap Test Screen (Cervical/ Endocervical HPV Reflex): Satisfactory for evaluation. Negative for intraepithelial lesion or m alignancy. Benign cellular changes associated with inflammation. HXThPrep Scrn Cyto-[place] See Comment STUART RCHART Comment: Report electronically signed by GERTRUDE Archer(ASCP) 08/15/2014 11:43 Interpreted by: GERTRUDE Prado (ASCP) [facility] See Comment POWERCHART Comment: A. ??ThinPrep Pap Test Screen (Cervical/ Endocervical HPV Reflex): Received cloudy specimen in ThinPrep via l. Test Performed by: [facility] [place] [address] Director Of Video Analytics: Andi hitchcock III, M.D. Specimen (Source) Anatomical Collection Method Collection Time Re ceived Time Location / / Volume Laterality Cervix/Endocervix 08/05/2014 8:59 AM CDT Narinder Enriquez M.D. LAB PAP PATHDX ORDERABLES Performing Organization Address [facility] Phon e Number POWERCHART (ABNORMAL) 1,25-Dihydroxyvitamin D (08/05/2014 8:59 AM CDT) [facility] Method Time Signature 1, 25 101 (H) 18 - 78 POWERCHART DIHYDROXYVITAMIN D, PGML S Comment: Test Performed by: [facility] [place] [address] Director Of Video Analytics: Andi hitchcock III, M.D. Specimen (Source) Anatomical Collection Method Collection Time Re ceived Time Location / / Volume Laterality Blood 08/05/2014 8:59 AM CDT Narinder Enriquez M.D. LAB BLOOD ADD-ON Performing Organization Address City/[facility] Code Phon e Number POWERCHART Thyroid-Stimulating Hormone-Sensitive (s-TSH) (08/05/2014 8:59 AM CDT) P athologist Signature TSH 1.76 0.30 - 5.00 POWERCHART (Thyrotropin) MIUL Specimen (Source) Anatomical Collection Method Collection Time Re ceived Time Location / / Volume Laterality Blood 08/05/2014 8:59 AM CDT Narinder Enriquez M.D. LAB BLOOD ADD-ON Performing Organization Address [facility] Code Phon e Number POWERCHART Profile II without CBC/Serum (08/05/2014 8:59 AM CDT) P athologist Signature HX Rubella Positive POWERCHART IgG-[place] Comment: Results suggest response to immunization or prior exposure to the virus. -- REFERENCE VALUE -- Vaccinated: Positive (>=1.0 AI) Unvaccinated: Negative (<=0.7 AI) Rubella IgG Antibody Index 1.5 POW ERCHART Syphilis IgG Ab, S Negative Negative POWERCHART Comment: No serologic evidence of exposu re to syphilis. HBs Antigen, S Negative Negative POWERCHART Comment: Test Performed by: [facility] [address] [place] [address] Director Of Video Analytics: Andi hitchcock III, M.D. Specimen (Source) Anatomical Collection Method Collection Time Re ceived Time Location / / Volume Laterality Blood 08/05/2014 8:59 AM CDT Narinder Enriquez M.D. LAB BLOOD NON ADD-ON Performing Organization Address City/[facility] Phon e Number POWERCHART HIV-1/-2 Ag and Ab Screen (08/05/2014 8:59 AM CDT) athologist Signature HIV-1/-2 Negative Negative POWERCHART Antibody Comment: Negative result does not rule out HIV in fection. If acute HIV infection is suspected in a hi gh-risk individual, submit plasma specimen for H IV-1 RNA quantification test (HIVQU) and/or HIV-2 DNA/RNA test (FHV2Q). Test Performed by: [address] [address] Director Of Video Analytics: Andi hitchcock III, M.D. Specimen (Source) Anatomical Collection Method Collection Time Re ceived Time Location / / Volume Laterality Blood 08/05/2014 8:59 AM CDT Narinder Enriquez M.D. LAB MICROBIOLOGY - BLOOD ORD ERABLES Performing Organization Address City/[facility] Phon e Number POWERCHART documented in this encounter Visit Diagnoses Not on filedocumented in this encounter Additional Health Concerns Assessment Noted Time PHQ-9 Depression Total Score: 22 10/04/2013 2:31 PM CS T documented as of this encounter
--- OUTSIDE RECORDS SUMMARY | 2022-08-16 21:34 | XMS_ITS | Encounter Summary ---
:1985 Author Organization [facility] Address [address] [place] [address] Care Team Providers Name Role Phone Unavailable Primary Care Provider Unavailable Encounter Details Date Type Department Care Team Description 09/14/2014 Hospital Encounter HX [facility] Narinder De [...] do you attend judaism or Never 2021 mandaen services? Do you [...] Sign Reading Time Taken Comments Blood Pressure 90/52 09/14/2014 11:24 AM CDT Pulse - - Temperature - - Respiratory Rate - - Oxygen Saturation - - Inhaled Oxygen Concentration - - Weight 71.8 kg (158 lb 4.6 oz) 09/14/2014 11:24 AM CDT Height 152 cm (4' 11.84) 09/14/2014 11:24 AM CDT Body Mass Index 31.08 09/14/2014 11:24 AM CDT documented in this encounter Progress Notes Narinder Enriquez M.D. - 09/14/2014 11:20 AM CDT [id number] CHIEF COMPLAINT/REASON FOR VISIT Acute OB visit. HISTORY OF PRESENT ILLNESS This patient is a 28-year-old G6, P3-0-2-3 female with LMP of 05/18/2014 and EDC of 02/22/2015 at 17and 1/7 weeks. Patient presents for an acute OB visit. The patient has lower abdominal pain. The patient was seen in the emergency room at [facility] on the evening of 09/12/2014 complaining oflower abdominal pain, as well as some bloating, she denied nausea or vomiting. No diarrhea or constipation. She reports active movement. The patient had evaluation. Her urinalysis was normal. Shehad no evidence of infection. Her vital signs were stable. She had an OB ultrasound performed showing intrauterine with positive cardiac activity and normal fluid level. She did not have a vaginal exam or her cervix checked. The patient was sent home with Tylenol #3 for pain. The patient reports she had some improvement in her pain symptoms with Tylenol #3 but her pain continued and she then presented to the [facility] on the night of 09/13/2014 with the same complaints. At [facility], she was found to have stable vital signs without evidence of infection. She had no fever. She had a benign abdominal exam. Positive cardiac activity. She had an ultrasound performed there, also showing intrauterine with positive movement and active fetus with normal fluid level. No free fluid or adnexal masses were seen. The patient was discharged home and instructed to continue taking Tylenol #3. The patient now presents for followup. She reports that she has this sharp pain in her lower abdomenand pelvis bilaterally, left and right, as well as in the midline. She reports that her pain symptoms are worse with standing and being active and it improves when she is off her feet and lying down. She denies any vaginal itching, irritation, or discharge. No vaginal bleeding. She reports active movement. She denies contractions. She denies pelvic pressure. She denies difficulty urinating. No dysuria, hematuria or flank pain. No fevers or chills. No pain with bowel movements. No change in bowel habits. No nausea or vomiting. No fevers or chills. ALLERGIES No known drug allergies. MEDICATIONS 1. Generic vitamins. 2. Tylenol #3 as needed. PAST MEDICAL/SURGICAL HISTORY PAST MEDICAL HISTORY: 1. History of tobacco abuse. Patient quit smoking 07/28/2014. 2. History depression. 3. History of bipolar disorder. 4. History of cervical dysplasia in 2005. 5. History of polycystic ovarian syndrome. PAST SURGICAL HISTORY: 1. Laparoscopic appendectomy 2012. 2. LEEP procedure 2005. PAST OBSTETRICAL HISTORY: 1. Vaginal delivery 02/10/2002. 2. Vaginal delivery 08/16/2008. 3. Vaginal delivery 11/06/2010. 4. Miscarriage 2004. 5. Miscarriage 2005. SOCIAL HISTORY Patient quit smoking 07/28/2014. She denies alcohol and drug use. She denies history of STD or PID. No history of abuse. VITAL SIGNS Weight 71.8 kg, height 152 cm, pulse 70, respiration 18, blood pressure 90/52, temperature 36.6. PHYSICAL EXAMINATION GENERAL: Well-developed, well-nourished gravid female in no apparent distress. Alert and oriented x3. Normal affect. LUNGS: Clear to auscultation bilaterally. Good inspiratory effort. HEART: Regular rate and rhythm without murmur. ABDOMEN: Soft, gravid, nontender, positive bowel sounds. No hepatomegaly. No rebound. No guarding. Fundal height palpated 3 cm below umbilicus, nontender, soft. No evidence of acute abdomen. SPINE: No CVA tenderness bilaterally. EXTREMITIES: No clubbing, cyanosis, or edema. Nontender bilaterally. GENITALIA: Normal external female genitalia. Normal vaginal mucosa. Cervix appears closed and thick.Bimanual exam: Cervix is closed, 4 cm thick. No cervical motion tenderness. No adnexal masses or tenderness bilaterally. RECTAL: Deferred. DIAGNOSTICS LABORATORY: On 09/12/2014, urinalysis negative. RADIOLOGY: On 09/12/2014, limited ultrasound shows intrauterine with positive cardiac activity, positive movement and normal fluid level. On 09/13/2014, limited OB ultrasound shows intrauterine with positive movement, positive cardiac activity, normal fluid level. No adnexal masses or free fluid. IMPRESSION/REPORT/PLAN 1. Intrauterine at 17 and 1/7 weeks. Positive cardiac activity. 2. Suspect round ligament strain in . 3. History of tobacco abuse. Patient quit smoking 07/28/2014. 4. History of recurrent headaches, tension versus migraine headaches, currently asymptomatic. 5. History of depression currently asymptomatic. 6. History of polycystic ovarian syndrome, currently asymptomatic. 7. History of cervical dysplasia with a LEEP procedure in 2005. PLAN: 1. Reassurance given to the patient. I discussed round ligament syndrome with the patient. She has no evidence of labor or miscarriage. Her cervix is closed and thick. There is no evidence of vaginitis or vaginal infection. There is no cervical motion tenderness. She has had 2 ultrasounds in the last 2 days showing reassuring assessment of intrauterine at 17 weeks gestation with normal fluid level. There is no evidence of adnexal masses or free fluid in the adnexa or pelvis. Her urinalysis is normal. She has no symptoms or signs of bladder infection. No evidence of kidney infection. 2. The patient's cervix is closed and thick. 3. Symptomatic relief measures for round ligament strain are discussed with the patient. I encouraged her to be at rest and be off her feet. I encouraged her to use heating pads and warm bath. I discussed relaxation techniques. 4. I discussed use of Tylenol #3 with codeine in . 5. Routine obstetrical precautions, recommendations, instructions are reviewed with patient including movement and kick counts. 6. Miscarriage precautions are reviewed patient. 7. Routine depression precautions reviewed with the patient. 8. I would like the patient to follow up in 3 weeks for OB visit as scheduled or be seen sooner as needed. 9. Emergency room precautions are reviewed with patient. 10. I spent 25 minutes [id number] time with the patient with over 50% of that time spent in counseling. Narinder Enriquez M.D./cristiano Electronically Signed By: NARINDER ENRIQUEZ MD On: 09/14/2014 01:59 PM Source: [facility] MHSDOLBEYNONRADSYS Document Id: [id number] documented in this encounter Miscellaneous Notes Telephone Encounter - Conversion, Historical Provider Ser - 09/26/2014 11:33 AM CST *Farida Morris/Mina Document Contains Addenda Addendum by BOBBY BEAR on 26 September 2014 15:29:46 PENSION CONSULTANT From: BOBBY BEAR ([facility] Field Account Director) To: Obstetrics/Gynecology Nurse; Sent: 09/26/2014 15:29:46 PENSION CONSULTANT Subject: RE: *Farida Morris/Mina Left patient a message to call back and schedule. Addendum by YULISA MORGAN LPN on 26 September 2014 14:44:52 PENSION CONSULTANT From: YULISA MORGAN LPN ( Obstetrics/Gynecology Nurse) To: [facility] Field Account Director; Sent: 09/26/2014 14:44:52 PENSION CONSULTANT Subject: FW: *Farida Felix Please call patient and assist her in making appointment. Addendum by NARINDER ENRIQUEZ MD on 26 September 2014 14:41:32 PENSION CONSULTANT From: NARINDER ENRIQUEZ MD To: Obstetrics/Gynecology Nurse; Sent: 09/26/2014 14:41:32 PENSION CONSULTANT Subject: RE: *Farida Felix yes, please have her come into clinic for an office visit Addendum by YULISA MORGAN LPN on 26 September 2014 11:43:14 PENSION CONSULTANT From: YULISA MORGAN LPN ( Obstetrics/Gynecology Nurse) To: NARINDER ENRIQUEZ MD; Sent: 09/26/2014 11:43:14 PENSION CONSULTANT Subject: FW: *Phone Message/Mina From: BOBBY BEAR ([facility] Field Account Director) To: EMMANUEL Obstetrics/Gynecology Nurse; Sent: 09/26/2014 11:33:44 PENSION CONSULTANT Subject: *Phone Message/Mina Caller is: ( x ) Patient ( ) Mother ( ) Father ( ) Spouse ( ) Daughter ( ) Son ( ) Pharmacy ( ) Other: Physician: Patient MRN #: Reason for Call: S: Patient is wondering if she needs to be seen before her next scheduled appt of 10/17 B: Patient saw Dr. Enriquez a week ago and then missed her appt this morning, totally forgetting aboutit. A: R: Please call patient to let her know at [phone] Message: Advice/Action: Source used: ( ) Verbalizes [...] back cell phone number ( ) Source: [facility] POWERCHART Document Id: [id number] Miscellaneous - Narinder Enriquez M.D. - 09/14/2014 11:51 AM CDT Ambulatory Patient Summary [address] [id number] Visit Information Name: KEILY NG [facility] Number: [id number] Current Date: 09/14/2014 11:51:05 Physicians Attending Provider: NARINDER ENRIQUEZ MD Primary [...] the Following Medications: Medication list as of 09-14-14 11:51 Attention: If you have any medications at [...] Electronically Signed By: NARINDER ENRIQUEZ MD Signed On:14-SEP-2014 11:51:01 Your Allergies & Intolerances Substance Reaction Symptoms [...] Your Upcoming Appointments Date Time Location Provider 09/26/2014 11:00 [facility] FURNITURE ASSEMBLER Narinder Enriquez MD 10/17/2014 11:00 [facility] FURNITURE ASSEMBLER Mina GALLARDO, Narinder Dockery Attention: Contact your local Clinic if further appointment detail needed. Your Goals/Additional instructions: Source: [facility] POWERCHART Document Id: [id number] Miscellaneous - Narinder Enriquez M.D. - 09/14/2014 11:51 AM CDT Ambulatory Discharge Medication List [address] [id number] Visit Information Name: KEILY NG [facility] Number: [id number] Visit Date: 09/14/2014 11:51:04 Attending Provider: NARINDER ENRIQUEZ MD Primary Care [...] the Following Medications: Medication list as of 09-14-14 11:51 Attention: If you have any medications at [...] Electronically Signed By: NARINDER ENRIQUEZ MD Signed On:14-SEP-2014 11:51:01 Additional Information: Source: [facility] POWERCHART Document Id: [id number] Miscellaneous - Yulisa Morgan, L.P.N. - 09/14/2014 11:24 AM CDT Adult Toy Assembler Wood Intake/History Adult Toy Assembler Wood Intake/History Entered On: 09/14/2014 11:26 CDT Performed On: 09/14/2014 11:24 CDT by YULISA MORGAN LPN Intake Chief Complaint : Ob visit 17 1/7 weeks LMP Date : 05/18/14 Systolic Blood Pressure : 90 mmHg (LOW) Diastolic Blood Pressure : 52 mmHg NIBP Mean : 65 mmHg BP Location : Left upper extremity Blood Pressure Cuff Size : Regular Height : 152 cm(Converted to: 5 ft 0 inch(es), 60 inch(es)) Actual Weight : 71.8 kg(Converted to: 158 lb 5 oz) Weight Source : Standing scale Dosing Weight Clinic : 71.8 kg Clinic BSA : 1.74 Body Mass Index : 31.08 kg/m2 YULISA MORGAN LPN - 09/14/2014 11:24 CDT General Info Information Given By : Patient Languages : Anguillan Is Patient Female and 13-50 no hysterectomy : Yes Status : Confirmed positive Are you ? : No YULISA MORGAN [facility] - 09/14/2014 11:24 CDT Subjective Pain Symptoms : No YULISA MORGAN [facility] - 09/14/2014 11:24 CDT Dependent Habits Tobacco Use/Currently Using : No Exposure to Tobacco Smoke : Patient smokes Smoking Status : Former smoker YULISA MORGAN [facility] - 09/14/2014 11:24 CDT Tobacco Use Grid Type : Cigarettes Cigarette Use Packs/Day : 0.2 YULISA MORGAN [facility] - 09/14/2014 11:24 CDT Caffeine Use Grid Caffeine Use : None YULISA MORGAN [facility] - 09/14/2014 11:24 CDT Recreational Drug Use Grid Drug Use : None YULISA MORGAN [facility] 09/14/2014 11:24 CDT [facility] Document Id: [id number] CDT!37 documented in this encounter Plan of Treatment Upcoming Encounters Date Type Specialty Care Team Description 08/30/2022 Clinical Communication Admitting/Central Scheduling 09/02/2022 Comprehensive Visit Endocrinology Ricardo Winkler APRN, C.N.P., D.N.P. [address] [place] [address] documented as of this encounter Visit Diagnoses Not on filedocumented in this encounter Additional Health Concerns Assessment Noted Time PHQ-9 Depression Total Score: 10/04/2013 2:31 PM CS T documented as of this encounter
--- OUTSIDE RECORDS SUMMARY | 2022-08-16 21:34 | XMS_ITS | Encounter Summary ---
:1985 Author Organization [facility] Address [address] [place] [address] Care Team Providers Name Role Phone Unavailable Primary Care Provider Unavailable Encounter Details Date Type Department Care Team Description 07/07/2014 Hospital Encounter HX [facility] Narinder De [...] do you attend muslim or Never 2021 adventism services? Do you [...] Sign Reading Time Taken Comments Blood Pressure 98/50 07/07/2014 1:49 PM CDT Pulse - - Temperature - - Respiratory Rate - - Oxygen Saturation - - Inhaled Oxygen Concentration - - Weight 72.9 kg (160 lb 11.5 oz) 07/07/2014 1:49 PM CDT Height 152 cm (4' 11.84) 07/07/2014 1:49 PM CDT Body Mass Index 31.55 07/07/2014 1:49 PM CDT documented in this encounter Progress Notes Narinder Enriquez M.D. - 07/07/2014 1:43 PM CDT [id number] CHIEF COMPLAINT/REASON FOR VISIT Routine OB visit. HISTORY OF PRESENT ILLNESS This patient is a 28-year-old, -0-2-3 female with LMP of 05/18/2014. She reports conception date of 06/05/2014. This gives an EDC of 02/22/2015, and makes her 7 weeks and 2 days today. The patientpresents for OB visit and OB ultrasound to confirm gestational age. She reports some mild morning nausea, but denies emesis. Her breast tenderness has resolved. She has no pain, cramping, tenderness ordiscomfort. No leaking of fluid. No vaginal bleeding. No difficulty urinating. No change in bowel habits. She is very happy to be . ALLERGIES No known drug allergies. MEDICATIONS vitamins. PAST MEDICAL/SURGICAL HISTORY 1. Tobacco abuse less than 1/2 pack per day. 2. History of bipolar disorder. 3. History of depression. 4. History of cervical dysplasia in 2005. 5. Polycystic ovarian syndrome. PAST SURGICAL HISTORY: Laparoscopic appendectomy 2012. PAST OBSTETRICAL HISTORY: 1. Vaginal delivery 02/10/2002 at 38 weeks, female infant, 6 pounds 0 ounces. 2. Vaginal delivery 08/16/2008, 38 weeks, female , 6 pounds 0 ounces. Complicated by labor. 3. Vaginal delivery 11/06/2010, 36 and 1/7 weeks. Male , 5 pounds 3 ounces. 4. Miscarriage 2004, 11 weeks. 5. Miscarriage 2005, 13 weeks. SOCIAL HISTORY The patient smokes tobacco less 1/2 pack per day. She denies alcohol or drug use. No history of STD or PID. She has a history of cervical dysplasia in 2005 with normal followup Pap smear. No history ofabuse. VITAL SIGNS Weight 72.9 kg. Height 152 cm. Blood pressure 98/50, pulse 74. PHYSICAL EXAMINATION GENERAL: Well-developed, well-nourished female, in no apparent distress. Alert and oriented x3. ABDOMEN: Soft, nontender, nondistended. Positive bowel sounds. Fundal height not palpated. Negative Doptones are auscultated. EXTREMITIES: No clubbing, cyanosis, or edema. Nontender bilaterally. GENITALIA: Deferred. DIAGNOSTICS 06/29/2014, chlamydia negative, gonorrhea negative. PROCEDURE 07/07/2014 OB ultrasound was performed. Please see separate report for details. IMPRESSION/REPORT/PLAN 1. at 7 and 2/7 weeks. No cardiac activity on ultrasound. 2. Tobacco abuse less 1/2 pack per day. 3. History of polycystic ovarian syndrome. Patient off medication. 4. History of cervical dysplasia. 5. History of depression. PLAN: 1. I reviewed OB ultrasound results with the patient showing an intrauterine gestational sac consistent with 6 weeks and 1 day. No embryo cardiac activity or yolk sac is visualized on today's ultrasound. No adnexal masses or free fluid is seen. I discussed with patient that I suspect that the patient is earlier than suspected and this can be a normal finding. I reviewed with the patient that there willi possibility of miscarriage but she is having no symptoms. 2. I recommend repeating ultrasound in 2 weeks to reevaluate the . At that point we should see an embryo and cardiac activity. She verbalizes understanding. 3. Miscarriage precautions reviewed with the patient. 4. Routine OB precautions, recommendations, instructions are reviewed with patient. Narinder Enriquez M.D./cristiano Electronically Signed By: NARINDER ENRIQUEZ MD On: 07/08/2014 02:04 PM Source: [facility] MHSDOLBEYNONRADSYS Document Id: [id number] documented in this encounter Miscellaneous Notes Miscellaneous - Narinder Enriquez M.D. - 07/07/2014 2:15 PM CDT Ambulatory Patient Summary [address] [id number] Visit Information Name: SAMUEL NG [facility] Number: [id number] Current Date: 07/07/2014 14:15:59 Physicians Attending Provider: NARINDER ENRIQUEZ MD Primary Care Provider: KAREN REYES MD SAMUEL NG has been given the [...] the Following Medications: Medication list as of 07-07-14 14:15 Attention: If you have any medications at [...] Electronically Signed By: NARINDER ENRIQUEZ MD Signed On:07-JUL-2014 14:15:50 Your Allergies & Intolerances Substance Reaction Symptoms Category Comments No Known Allergies Drug Your Problem List Problem Status Onset Comments Tobacco Use Disorder Active 04/02/2010 Bipolar disorder, depressed Active Polycystic ovarian disease Active Personal History of Cervical Dysplasia Active 10/03/2006 Depressive disorder, major, recurrent episode Active Normal Preg Not First 1st Preg Active 06/29/2014 Your Upcoming Appointments Date Time Location Reason Provider 07/21/2014 13:30 [facility] EXPERT WITNESS first ob H&P, NOB labs Narinder Enriquez MD Attention: Contact your local Clinic if further appointment detail needed. Your Goals/Additional instructions: Source: [facility] POWERCHART Document Id: [id number] Miscellaneous - Narinder Enriquez M.D. - 07/07/2014 2:15 PM CDT Ambulatory Discharge Medication List [address] [id number] Visit Information Name: NG SAMUELCRISTHIAN VELÁSQUEZN [facility] Number: [id number] Visit Date: 07/07/2014 14:15:58 Attending Provider: NARINDER ENRIQUEZ MD Primary Care Provider: KAREN REYES MD SAMUEL NG has been given the [...] the Following Medications: Medication list as of 07-07-14 14:15 Attention: If you have any medications at [...] Electronically Signed By: NARINDER ENRIQUEZ MD Signed On:07-JUL-2014 14:15:50 Additional Information: Source: [facility] POWERCHART Document Id: [id number] Miscellaneous - Susana Morgan, L.P.N. - 07/07/2014 1:49 PM CDT Adult Front Desk Representative Intake/History Adult Front Desk Representative Intake/History Entered On: 07/07/2014 13:50 CDT Performed On: 07/07/2014 13:49 CDT by BIRD, SUSANA B COREMAKER APPRENTICE Intake Chief Complaint : Ob visit 7 2/7 weeks LMP Date : 05/18/14 Systolic Blood Pressure : 98 mmHg Diastolic Blood Pressure : 50 mmHg (LOW) NIBP Mean : 66 mmHg BP Location : Left upper extremity Blood Pressure Cuff Size : Regular Height : 152 cm(Converted to: 5 ft 0 inch(es), 60 inch(es)) Actual Weight : 72.9 kg(Converted to: 160 lb 11 oz) Dosing Weight Clinic : 72.9 kg Clinic BSA : 1.75 Body Mass Index : 31.55 kg/m2 SUSANA MORGAN LPN - 07/07/2014 13:49 CDT General Info Information Given By : Patient Languages : Occitan Is Patient Female and 13-50 no hysterectomy : Yes Status : Confirmed positive Are you ? : No SUSANA MORGAN LPN - 07/07/2014 13:49 CDT Subjective Pain Symptoms : Yes SUSANA MORGAN LPN - 07/07/2014 13:49 CDT Pain Pain Assessment Grid Pain 1 Location : Pelvic Laterality : Bilateral SUSANA MORGAN LPN - 07/07/2014 13:49 CDT Dependent Habits Tobacco Use/Currently Using : Yes Exposure to Tobacco Smoke : Patient smokes Smoking Status : Current every day smoker SUSANA MORGAN LPN - 07/07/2014 13:49 CDT Tobacco Use Grid Type : Cigarettes Cigarette Use Packs/Day : 0.2 SUSANA MORGAN LPN - 07/07/2014 13:49 CDT Caffeine Use Grid Caffeine Use : None SUSANA MORGAN LPN - 07/07/2014 13:49 CDT Recreational Drug Use Grid Drug Use : None SUSANA MORGAN LPN - 07/07/2014 13:49 CDT Source: [facility] POWERCHART Document Id: [id number] CDT!41 documented in this encounter Plan of Treatment Upcoming Encounters Date Type Specialty Care Team Description 08/30/2022 Clinical Communication Admitting/Central Scheduling 09/02/2022 Comprehensive Visit Endocrinology Ricardo Winkler APRN, C.N.P., D.N.P. [address] [place] [phone] documented as of this encounter Visit Diagnoses Not on filedocumented in this encounter Additional Health Concerns Assessment Noted Time PHQ-9 Depression Total Score: 22 10/04/2013 2:31 PM CS T documented as of this encounter
--- OUTSIDE RECORDS SUMMARY | 2022-08-16 21:34 | XMS_ITS | Encounter Summary ---
:1985 Author Organization [facility] Address [address] [place] [address] Care Team Providers Name Role Phone Unavailable Primary Care Provider Unavailable Encounter Details Date Type Department Care Team Description 06/29/2014 Hospital Encounter HX [facility] Narinder De [...] do you attend christian or Never 2021 mandaen services? Do you [...] Sign Reading Time Taken Comments Blood Pressure 104/68 06/29/2014 4:01 PM CDT Pulse 82 06/29/2014 4:01 PM CDT Temperature - - Respiratory Rate 16 06/29/2014 4:01 PM CDT Oxygen Saturation - - Inhaled Oxygen Concentration - - Weight 72.9 kg (160 lb 11.5 oz) 06/29/2014 4:01 PM CDT Height 152 cm (4' 11.84) 06/29/2014 4:01 PM CDT Body Mass Index 31.55 06/29/2014 4:01 PM CDT documented in this encounter Progress Notes Narinder Enriquez M.D. - 06/29/2014 3:52 PM CDT [id number] CHIEF COMPLAINT/REASON FOR VISIT . HISTORY OF PRESENT ILLNESS This patient is a 28-year-old, G6, P3-0-2-3 female with LMP of 05/18/2014. She has a conception dateof 06/05/2014, which gives her an EDC of 02/22/2015. That makes the patient 6-0/7 weeks today. The patient has a history of polycystic ovarian syndrome, and she has a long history of irregular menses. The patient was previously on control pills but stopped due to a rash, and her periods have become irregular. She reports a sure conception date of 06/05/2014, which gives her an EDC of 02/22/2015. The patient reports having some breast tenderness and morning nausea. She felt like she was . She took a home test last week, which was positive. The patient was seen in clinic by her provider yesterday with positive test. The patient now presents to establish care. The patient just stopped her metformin medication when she found out she was . She is currently taking no medications. The patient denies headaches or vision changes. No shortness of breath or chest pain. No fevers or chills. No vaginal itching, irritation, or discharge. No pain, crampy tenderness or discomfort. No bleeding. ALLERGIES No known drug allergies. MEDICATIONS None. PAST MEDICAL/SURGICAL HISTORY PAST MEDICAL HISTORY: 1. Tobacco abuse, less 1/2 pack per day. 2. History of bipolar disorder. 3. History depression. 4. History of cervical dysplasia in 2005. 5. Polycystic ovarian syndrome. PAST SURGICAL HISTORY: Laparoscopic appendectomy 12/25/2012. PAST OBSTETRICAL HISTORY: 1. Vaginal delivery 02/10/2002, 38 weeks, female , 6 pounds 0 ounces. 2. Vaginal delivery 08/16/2008 at 38 weeks, female , 6 pounds 0 ounces. Complicated by pretermlabor. 3. Vaginal delivery 11/06/2010, 36-1/7 weeks, male infant, 5 pounds 3 ounces. 4. Miscarriage 2004, 11 weeks. 5. Miscarriage 2005, 13 weeks. SOCIAL HISTORY The patient smokes tobacco, less 1/2 pack per day. She denies alcohol or drug use. She denies history of STD or PID. She does have a history of cervical dysplasia in 2005 with normal followup Pap smear. She denies history of abuse. PHYSICAL EXAMINATION VITAL SIGNS: Weight 72.9 kg, height 152 cm, pulse 82, respirations 16, blood pressure 104/68. GENERAL: Well-developed, well-nourished female, in no apparent distress. Alert and oriented x3. Formal examination deferred. DIAGNOSTIC STUDIES Lab 06/29/2014: test positive. Labs 06/29/2014: LCR for GC and Chlamydia pending. IMPRESSION/REPORT/PLAN 1. at 6-0/7 weeks. 2. Last menstrual period of 05/18/2014 with conception date of 06/05/2014. This gives an EDC of 02/22/2015. 3. Tobacco abuse, less 1/2 pack per day. 4. History of polycystic ovarian syndrome. Patient just stopped metformin. 5. History of cervical dysplasia. 6. History of depression. PLAN: 1. Congratulations given to the patient. 2. I would like the patient to follow up in the next week for OB visit and OB ultrasound to confirm gestational age and cardiac activity. 3. Symptomatic relief measures for nausea in are discussed with the patient. 4. I discussed use of metformin in . The patient recently stopped the metformin, which if she was taken for polycystic ovarian syndrome, I feel that it is reasonable to stop at this part of the . 5. I recommend the patient start vitamins. Patient is going to cone picker [id number] generic vitamins. 6. Routine OB precautions, recommendations, instructions are reviewed with the patient. 7. I recommend tobacco cessation. I reviewed with the patient the risks of smoking in . 8. I spent 25 minutes in czal-jr-vwxe time with the patient with over 50% of that time spent in counseling. Narinder Enriquez M.D./cristiano Electronically Signed By: NARINDER ENRIQUEZ MD On: 06/30/2014 11:35 AM Source: [facility] MHSDOLBEYNONRADSYS Document Id: [id number] documented in this encounter Miscellaneous Notes Miscellaneous - Narinder Enriquez M.D. - 06/29/2014 5:48 PM CDT Ambulatory Patient Summary [address] [id number] Visit Information Name: SAMUEL NG [facility] Number: [id number] Current Date: 06/29/2014 17:48:59 Physicians Attending Provider: NARINDER ENRIQUEZ MD Primary [...] Take Indications/Special Instructions/Comments/Notes for Patient Medication Changes/Routing *metFORMIN (metFORMIN 500 mg oral tablet) 1 Tablet(s), Oral, two times a day with meals * You have let us know that you are not taking this medication as listed. Please talk with your primary care provider or the health care provider who prescribed the medication as soon as possible. Stop Taking the Following Medications: cyclobenzaprine (Flexeril) Medication list as of 06-29-14 17:48 Attention: If you have any medications at [...] Electronically Signed By: NARINDER ENRIQUEZ MD Signed On:29-JUN-2014 17:48:55 Your Allergies & Intolerances Substance Reaction Symptoms Category Comments No Known Allergies Drug Your Problem List Problem Status Onset Comments Tobacco Use Disorder Active 04/02/2010 Bipolar disorder, depressed Active Polycystic ovarian disease Active Personal History of Cervical Dysplasia Active 10/03/2006 Depressive disorder, major, recurrent episode Active Normal Preg Not First 1st Preg Active 06/29/2014 Your Upcoming Appointments Date Time Location Reason Provider 07/07/2014 14:00 [facility] 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 Your Goals/Additional instructions: Source: [facility] POWERCHART Document Id: [id number] Miscellaneous - Narinder Enriquez M.D. - 06/29/2014 5:48 PM CDT Ambulatory Discharge Medication List [facility] [address] [place] [id number] Visit Information Name: SAMUEL NG [facility] Number: [id number] Visit Date: 06/29/2014 17:48:58 Attending Provider: NARINDER ENRIQUEZ MD Primary Care [...] Take Indications/Special Instructions/Comments/Notes for Patient Medication Changes/Routing *metFORMIN (metFORMIN 500 mg oral tablet) 1 Tablet(s), Oral, two times a day with meals * You have let us know that you are not taking this medication as listed. Please talk with your primary care provider or the health care provider who prescribed the medication as soon as possible. Stop Taking the Following Medications: cyclobenzaprine (Flexeril) Medication list as of 06-29-14 17:48 Attention: If you have any medications at [...] Electronically Signed By: NARINDER ENRIQUEZ MD Signed On:29-JUN-2014 17:48:55 Additional Information: Source: [facility] POWERCHART Document Id: [id number] Miscellaneous - Bushra Christy, L.P.N. 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 Intake/History Entered On: 06/29/2014 16:02 CDT Performed On: 06/29/2014 16:01 CDT by BUSHRA CHRISTY Intake Chief Complaint : 1st OB visit 6 weeks Peripheral Pulse Rate : 82 /min Respiratory Rate : 16 /min Heart Rhythm : Regular Systolic Blood Pressure : 104 mmHg Diastolic Blood Pressure : 68 mmHg NIBP Mean : 80 mmHg BP Location : Left upper extremity Blood Pressure Cuff Size : Regular Height : 152 cm(Converted to: 5 ft 0 inch(es), 60 inch(es)) Actual Weight : 72.9 kg(Converted to: 160 lb 11 oz) Weight Source : Standing scale Dosing Weight Clinic : 72.9 kg Clinic BSA : 1.75 Body Mass Index : 31.55 kg/m2 BUSHRA CHRISTY - 06/29/2014 16:01 CDT General Info Languages : Korean Is Patient Female and 13-50 no hysterectomy : Yes Status : Confirmed positive Are you ? : No BUSHRA CHRISTY - 06/29/2014 16:01 CDT Subjective Pain Symptoms : No BUSHRA CHRISTY - 06/29/2014 16:01 CDT Dependent Habits Tobacco Use/Currently Using : Yes Exposure to Tobacco Smoke : Patient smokes Smoking Status : Current some day smoker BUSHRA CHRISTY - 06/29/2014 16:01 CDT Tobacco Use Grid Type : Cigarettes Cigarette Use Packs/Day : 0.3 BUSHRA CHRISTY - 06/29/2014 16:01 CDT Caffeine Use Grid Caffeine Use : None BUSHRA CHRISTY - 06/29/2014 16:01 CDT Recreational Drug Use Grid Drug Use : None BUSHRA CHRISTY - 06/29/2014 16:01 CDT Source: [facility] POWERCHART Document Id: [id number] CDT!38 documented in this encounter Plan of Treatment Upcoming Encounters Date Type Specialty Care Team Description 08/30/2022 Clinical Communication Admitting/Central Scheduling 09/02/2022 Comprehensive Visit Endocrinology Ricardo Winkler APRN, C.N.P., D.N.P. [address] [place] [phone] documented as of this encounter Procedures Procedure Name Priority Date/Time Associated Diagnosis Comme nts N GONOR AMP SRC Routine 06/29/2014 4:25 PM Result s for this CDT procedure are i n the results section. N GONOR AMP DNA Routine 06/29/2014 4:25 PM Result s for this CDT procedure are i n the results section. C TRACH AMP SRC Routine 06/29/2014 4:25 PM Result s for this CDT procedure are i n the results section. C TRACH AMP RNA Routine 06/29/2014 4:25 PM Result s for this CDT procedure are i n the results section. documented in this encounter Results HX-N gonor Amp DNA (06/29/2014 4:25 PM CDT) P athologist Signature HXN gonor Amp Negative POWERCHART DNA-Dixon Specimen (Source) Anatomical Collection Method Collection Time Re ceived Time Location / / Volume Laterality 06/29/2014 4:25 PM CDT Narrative POWERCHART - 07/01/2014 7:19 PM CDT Test Performed by: [facility] [address] [place] [address] Newswriter: Andi hitchcock III, M.D. Narinder Enriquez M.D. LAB HISTORICAL ORDERS Performing Organization Address City/State/ZIP Code Phon e Number POWERCHART HX-N gonor Amp Src (06/29/2014 4:25 PM CDT) P athologist Signature HXN gonor Amp Urine POWERCHART Src-Dixon Specimen (Source) Anatomical Collection Method Collection Time Re ceived Time Location / / Volume Laterality 06/29/2014 4:25 PM CDT Narinder Enriquez M.D. LAB HISTORICAL ORDERS Performing Organization Address City/State/ZIP Code Phon e Number POWERCHART HX-C trach Amp RNA (06/29/2014 4:25 PM CDT) [facility] Method Time Signature Chlamydia Negative POWERCHART trachomatis amplified RNA Specimen (Source) Anatomical Collection Method Collection Time Re ceived Time Location / / Volume Laterality 06/29/2014 4:25 PM CDT Narinder Enriquez M.D. LAB HISTORICAL ORDERS Performing Organization Address City/State/ZIP Code Phon e Number POWERCHART HX-C trach Amp Src (06/29/2014 4:25 PM CDT) P athologist Signature HXC trach Amp Urine POWERCHART Src-Dixon Specimen (Source) Anatomical Collection Method Collection Time Re ceived Time Location / / Volume Laterality 06/29/2014 4:25 PM CDT Narinder Enriquez M.D. LAB HISTORICAL ORDERS Performing Organization Address City/State/ZIP Code Phon e Number POWERCHART documented in this encounter Visit Diagnoses Not on filedocumented in this encounter Additional Health Concerns Assessment Noted Time PHQ-9 Depression Total Score: 22 10/04/2013 2:31 PM CS T documented as of this encounter
--- OUTSIDE RECORDS SUMMARY | 2022-08-16 21:34 | XMS_ITS | Encounter Summary ---
:1985 Author Organization [facility] Address [address] [place] [id number] Care Team Providers Name Role Phone Unavailable Primary Care Provider Unavailable Encounter Details Date Type Department Care Team Description 09/12/2014 Hospital Encounter HX [facility] Narinder De [...] or relatives? How often do you attend restorationist or Never 2021 jainism services? Do you belong to any clubs or No 01/25/2022 organizations such as restorationist groups, unions, fraternal or athletic groups, or [...] Sign Reading Time Taken Comments Blood Pressure 102/48 09/12/2014 1:56 PM CDT Pulse - - Temperature - - Respiratory Rate - - Oxygen Saturation - - Inhaled Oxygen Concentration - - Weight 72.3 kg (159 lb 6.3 oz) 09/12/2014 1:56 PM CDT Height 152 cm (4' 11.84) 09/12/2014 1:56 PM CDT Body Mass Index 31.29 09/12/2014 1:56 PM CDT documented in this encounter Progress Notes Narinder Enriquez M.D. - 09/12/2014 1:50 PM CDT [id number] CHIEF COMPLAINT/REASON FOR VISIT Acute OB visit. HISTORY OF PRESENT ILLNESS This patient is a 28-year-old, G6, P3-0-2-3 female with LMP of 05/18/2014 and EDC of 02/22/2015 at 16-6/7 weeks. Patient presents for an acute OB visit. She thinks that she has developed an incisional hernia in her right upper quadrant from a laparoscopic incision from her appendectomy from last year.The patient reports that she feels a tugging sensation just under this incision in the right upper quadrant when she bends over. No pain or discomfort. No change in bowel habits. No difficulty urinating. The patient reports that she is feeling the baby move. She denies leaking of fluid or vaginal bleeding. No lower abdominal pain, cramping, tenderness, or discomfort. No fevers or chills. No depression symptoms. The patient reports she has not smoked tobacco since 07/28/2014. ALLERGIES No known drug allergies. MEDICATIONS Generic vitamins. PAST MEDICAL/SURGICAL HISTORY PAST MEDICAL HISTORY: 1. History of tobacco abuse. Patient quit smoking 07/28/2014. 2. History of depression. 3. History of bipolar disorder. 4. History of cervical dysplasia, 2005. 5. History of polycystic ovarian syndrome. PAST SURGICAL HISTORY: 1. Laparoscopic appendectomy, 2012. 2. LEEP procedure, 2005. PAST OBSTETRICAL HISTORY: 1. Vaginal delivery, 02/10/2002. 2. Vaginal delivery, 08/16/2008. 3. Vaginal delivery, 11/06/2010. 4. Miscarriage, 2004. 5. Miscarriage, 2005. SOCIAL HISTORY The patient quit smoking, 07/28/2014. No alcohol or drug use. No history of STD or PID. No history of abuse. VITAL SIGNS Weight 72.3 kg, height 152 cm. Blood pressure 102/48. PHYSICAL EXAMINATION GENERAL: Well-developed, well-nourished female in no apparent distress. Alert and oriented x3. ABDOMEN: Soft, nontender, nondistended. Positive bowel sounds. Fundal height not palpated. Positive Doptones are auscultated, 164 beats per minute. No evidence of hernia at her laparoscopic incisions. EXTREMITIES: No clubbing, cyanosis or edema. Nontender bilaterally. GENITALIA: Exam deferred. IMPRESSION/REPORT/PLAN 1. Intrauterine at 16-6/7 weeks. Positive cardiac activity. 2. History of tobacco abuse. Patient quit smoking 07/28/2014. 3. Recurrent headaches. Tension headache versus migraine headache. 4. History of depression, currently asymptomatic. 5. History of cervical dysplasia and LEEP procedure, 2005. 6. History of polycystic ovarian syndrome, currently asymptomatic. PLAN: 1. Reassurance given to the patient. I examined her laparoscopic abdominal incisions. There is no evidence of incisional hernia. I examined the patient supine, standing and bending over, without evidence of an incisional hernia. Reassurance given to the patient. 2. Symptomatic relief measures are discussed with the patient including Tylenol and a heating pad tothe area. I also discussed warm bath. 3. Routine obstetric precautions, recommendations, instructions are reviewed with the patient including movement and kick counts. 4. Routine depression precautions are reviewed with patient. 5. I would like the patient to follow up in3 to 4 weeks for obstetric visit as scheduled, or be seensooner as needed. Narinder Enriquez M.D./cristiano Electronically Signed By: NARINDER ENRIQUEZ MD On: 09/14/2014 08:23 AM Source: [facility] MHSDOLBEYNONRADSYS Document Id: [id number] documented in this encounter Miscellaneous Notes Miscellaneous - Narinder Enriquez M.D. - 09/12/2014 2:12 PM CDT Ambulatory Patient Summary [address] [id number] Visit Information Name: SAMUEL NG [facility] Number: [id number] Current Date: 09/12/2014 14:12:16 Physicians Attending Provider: NARINDER ENRIQUEZ MD Primary [...] the Following Medications: Medication list as of 09-12-14 14:12 Attention: If you have any medications at [...] Electronically Signed By: NARINDER ENRIQUEZ MD Signed On:12-SEP-2014 14:12:08 Your Allergies & Intolerances Substance Reaction Symptoms [...] Appointments Date Time Location Provider 09/26/2014 11:00 [facility] SPECIALTY PERSON Narinder Enriquez MD 10/17/2014 11:00 [facility] SPECIALTY PERSON Narinder Enriquez MD Attention: Contact your local Clinic if further appointment detail needed. Your Goals/Additional instructions: Source: [facility] Document Id: [id number] Miscellaneous - Narinder Enriquez M.D. - 09/12/2014 2:12 PM CDT Ambulatory Discharge Medication List [address] [id number] Visit Information Name: ANYA SAMUELCRISTHIAN VELÁSQUEZN [facility] Number: [id number] Visit Date: 09/12/2014 14:12:15 Attending Provider: NARINDER ENRIQUEZ MD Primary Care [...] the Following Medications: Medication list as of 09-12-14 14:12 Attention: If you have any medications at [...] Electronically Signed By: NARINDER ENRIQUEZ MD Signed On:12-SEP-2014 14:12:08 Additional Information: Source: [facility] IndiceeCHART Document Id: [id number] Miscellaneous - Susana Morgan, L.P.N. 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 Intake/History Entered On: 09/12/2014 13:57 CDT Performed On: 09/12/2014 13:56 CDT by SUSANA MORGAN LPN Intake Chief Complaint : Ob visit 16 6/7 weeks LMP Date : 05/18/14 Systolic Blood Pressure : 102 mmHg Diastolic Blood Pressure : 48 mmHg (<LLOW) NIBP Mean : 66 mmHg BP Location : Left upper extremity Blood Pressure Cuff Size : Regular Height : 152 cm(Converted to: 5 ft 0 inch(es), 60 inch(es)) Actual Weight : 72.3 kg(Converted to: 159 lb 6 oz) Weight Source : Standing scale Dosing Weight Clinic : 72.3 kg Clinic BSA : 1.75 Body Mass Index : 31.29 kg/m2 SUSANA MORGAN LPN - 09/12/2014 13:56 CDT General Info Information Given By : Patient Languages : Georgian Is Patient Female and 13-50 no hysterectomy : Yes Status : Confirmed positive Are you ? : No SUSANA MORGAN LPN - 09/12/2014 13:56 CDT Subjective Pain Symptoms : No SUSANA MORGAN LPN - 09/12/2014 13:56 CDT Dependent Habits Tobacco Use/Currently Using : Yes Exposure to Tobacco Smoke : Patient smokes Smoking Status : Current every day smoker SUSANA MORGAN LPN - 09/12/2014 13:56 CDT Tobacco Use Grid Type : Cigarettes Cigarette Use Packs/Day : 0.2 SUSANA MORGAN LPN - 09/12/2014 13:56 CDT Caffeine Use Grid Caffeine Use : None SUSANA MORGAN LPN - 09/12/2014 13:56 CDT Recreational Drug Use Grid Drug Use : None SUSANA MORGAN LPN - 09/12/2014 13:56 CDT Source: [facility] POWERCHART Document Id: [id number] CDT!37 documented in this encounter Plan of Treatment Upcoming Encounters Date Type Specialty Care Team Description 08/30/2022 Clinical Communication Admitting/Central Scheduling 09/02/2022 Comprehensive Visit Endocrinology Ricardo Winkler APRN, C.N.P., D.N.P. [address] [place] [phone] documented as of this encounter Visit Diagnoses Not on filedocumented in this encounter Additional Health Concerns Assessment Noted Time PHQ-9 Depression Total Score: 22 10/04/2013 2:31 PM CS T documented as of this encounter
--- OUTSIDE RECORDS SUMMARY | 2022-08-16 21:34 | XMS_ITS | Encounter Summary ---
:1985 Author Organization [facility] Address [address] [place] [address] Care Team Providers Name Role Phone Unavailable Primary Care Provider Unavailable Encounter Details Date Type Department Care Team Description 06/28/2014 Hospital Encounter [facility]X [facility] Yarelis Dial i, M.D. [address] [place] [address] (Wo rk) Social History Tobacco [...] do you attend anglican or Never 2021 druze services? Do you [...] Reading Time Taken Comments Blood Pressure 104/60 06/28/2014 10:14 AM CDT Pulse 100 06/28/2014 10:14 AM CDT Temperature - - Respiratory Rate 16 06/28/2014 10:14 AM CDT Oxygen Saturation - - Inhaled Oxygen Concentration - - Weight 73.5 kg (162 lb 0.6 oz) 06/28/2014 10:14 AM CDT Height 152 cm (4' 11.84) 06/28/2014 10:14 AM CDT Body Mass Index 31.81 06/28/2014 10:14 AM CDT documented in this encounter Progress Notes Yarelis Steinberg M.D. - 06/28/2014 9:51 AM CDT [id number] CHIEF COMPLAINT/ REASON FOR VISIT HISTORY OF PRESENT ILLNESS Samuel is a 28 year old female who presents to the clinic today _. The patient denies any additional questions or concerns at this time. MEDICATIONS Post-visit Medication Reconciliation Reviewed and are as outlined in the EMR including 1. ALLERGIES No known allergies. SYSTEMS REVIEW See HPI. PAST MEDICAL/SURGICAL HISTORY 1. Polycystic ovarian syndrome. 2. Depression. 3. History of cervical dysplasia. 4. Headache. 5. 5, para 3. PREVENTIVE SERVICES Tobacco use: Yes. VITAL SIGNS HEIGHT: 152 cm WEIGHT: 73.5 kg BMI: 31.81 kg/m2 TEMPERATURE: 36.4 DegC PULSE: 100 /min RESPIRATORY RATE: 16 /min BLOOD PRESSURE: 104 mmHg/60 mmHg PHYSICAL EXAMINATION GENERAL: Patient is alert and oriented times three, in no acute distress, good hygiene and is dressed appropriately. ENT: Tympanic membranes are normal bilaterally. Oropharynx is without erythema or exudate. Inferior nasal turbinates are without injection. Neck is without adenopathy. LYMPH NODES: Not palpably enlarged and no nodules are palpated. HEART: Regular rate and rhythm without murmur. LUNGS: Clear to auscultation. ABDOMEN: Soft and nontender with no masses. BREASTS: Without mass or nipple discharge. There are no axillary or supraclavicular adenopathy. RECTUM: Exam is without mass. GENITALIA: External genitalia without lesions. Cervix is normal in appearance. Samples taken for Papsmear with cytobrush and spatula. Bimanual exam reveals small nontender uterus and adnexa. EXTREMITIES: Within normal limits. IMPRESSION/REPORT/PLAN 1. 2. Follow up: The patient will contact the clinic with any new or worsening symptoms. This document serves as a record of services personally performed by Yarelis Reyes MD. It was created on their behalf by Samuel Perea, a trained site medical director. The creation of this record is based on the scribe's personal observations and the provider's statements to them. This document has been matilda cked and approved by the attending provider. Yarelis Reyes M.D./carlo Electronically Signed By: YARELIS REYES MD On: 07/20/2014 12:07 AM Source: [facility] MHSDOLBEYNONRADSYS Document Id: [id number] documented in this encounter Miscellaneous Notes Miscellaneous - Yarelis Steinberg M.D. - 06/29/2014 12:20 AM CDT Ambulatory Patient Summary [address] [id number] Visit Information Name: SAMUEL NG [facility] Number: [id number] Current Date: 06/29/2014 00:20:41 Physicians Attending Provider: YARELIS REYES MD Primary Care Provider: YARELIS REYES MD SAMUEL NG has been given [...] Take Indications/Special Instructions/Comments/Notes for Patient Medication Changes/Routing *buPROPion (buPROPion SR 150 mg/12 hour oral tablet, sustained release) 1 Tablet(s), Oral, two timesa day *cyclobenzaprine (Flexeril) as needed *drospirenone-ethinyl estradiol (Denise 3 mg-0.02 mg oral tablet) 1 Tablet(s), Oral, once a day *LORazepam (LORazepam 0.5 mg oral tablet) 1 Tablet(s), Oral, three times a day as needed for Anxiety metFORMIN (metFORMIN 500 mg oral tablet) 1 Tablet(s), Oral, two times a day with meals * You have let us know that you are not taking this medication as listed. Please talk with your primary care provider or the health care provider who prescribed the medication as soon as possible. Stop Taking the Following Medications: Medication list as of 06-29-14 00:20 Attention: If you have any medications at home that are not on this list, DO NOT take them until youcontact your provider for clarification. Give a copy of your medication list to your primary care provider. Update your medication list any time medications or doses are changed and carry your medication list at all times in case of emergency. Electronically Signed By: YARELIS REYES MD Signed On:29-JUN-2014 00:20:35 Your Allergies & Intolerances Substance Reaction Symptoms Category Comments No Known Allergies Drug Your Problem List Problem Status Onset Comments Tobacco Use Disorder Active 04/02/2010 Bipolar disorder, depressed Active Polycystic ovarian disease Active Personal History of Cervical Dysplasia Active 10/03/2006 Depressive disorder, major, recurrent episode Active Your Upcoming Appointments Date Time Location Reason Provider 06/29/2014 16:00 [facility] [place] discuss early Jhonny Enriquez MD Attention: Contact your local Clinic if further appointment detail needed. Your Goals/Additional instructions: Source: [facility] POWERCHART Document Id: [id number] Miscellaneous - Yarelis Steinberg M.D. - 06/29/2014 12:20 AM CDT Ambulatory Discharge Medication List [address] [id number] Visit Information Name: NGSAMUEL [facility] Number: [id number] Visit Date: 06/29/2014 00:20:39 Attending Provider: YARELIS REYES MD Primary Care Provider: YARELIS REYES MD SAMUEL NG has been given the following list of medications: Your Medications It is important to take your medications as directed. Use a pill box or chart to help remind you to take your medications. Please let your doctor or nurse know if you have problems taking your medications. Medication/Strength How to Take Indications/Special Instructions/Comments/Notes for Patient Medication Changes/Routing *buPROPion (buPROPion SR 150 mg/12 hour oral tablet, sustained release) 1 Tablet(s), Oral, two timesa day *cyclobenzaprine (Flexeril) as needed *drospirenone-ethinyl estradiol (Denise 3 mg-0.02 mg oral tablet) 1 Tablet(s), Oral, once a day *LORazepam (LORazepam 0.5 mg oral tablet) 1 Tablet(s), Oral, three times a day as needed for Anxiety metFORMIN (metFORMIN 500 mg oral tablet) 1 Tablet(s), Oral, two times a day with meals * You have let us know that you are not taking this medication as listed. Please talk with your primary care provider or the health care provider who prescribed the medication as soon as possible. Stop Taking the Following Medications: Medication list as of 06-29-14 00:20 Attention: If you have any medications at home that are not on this list, DO NOT take them until youcontact your provider for clarification. Give a copy of your medication list to your primary care provider. Update your medication list any time medications or doses are changed and carry your medication list at all times in case of emergency. Electronically Signed By: YARELIS REYES MD Signed On:29-JUN-2014 00:20:35 Additional Information: Source: [facility] POWERCHART Document Id: [id number] Miscellaneous - Conversion, Historical Provider Ser - 06/28/2014 10:14 AM CDT Adult Head Miller Intake/History Adult Head Miller Intake/History Entered On: 06/28/2014 10:19 CDT Performed On: 06/28/2014 10:14 CDT by LEORA MALONEY LPN Intake Chief Complaint : , conception date 06/05/14 LMP Date : 05/08/14 Temperature Core : 36.4 DegC(Converted to: 97.5 DegF) (LOW) Peripheral Pulse Rate : 100 /min Respiratory Rate : 16 /min Systolic Blood Pressure : 104 mmHg Diastolic Blood Pressure : 60 mmHg NIBP Mean : 75 mmHg BP Location : Right upper extremity Blood Pressure Cuff Size : Regular Height : 152 cm(Converted to: 5 ft 0 inch(es), 60 inch(es)) Actual Weight : 73.5 kg(Converted to: 162 lb 1 oz) Dosing Weight Clinic : 73.5 kg Clinic BSA : 1.76 Body Mass Index : 31.81 kg/m2 LEORA MALONEY LPN - 06/28/2014 10:14 CDT General Info Languages : Amharic Is Patient Female and 13-50 no hysterectomy : Yes Status : Confirmed positive Are you ? : No LEORA MALONEY LPN - 06/28/2014 10:14 CDT Subjective Pain Symptoms : No LEORA MALONEY LPN - 06/28/2014 10:14 CDT Dependent Habits Tobacco Use/Currently Using : Yes Tobacco Use/Advised to Quit : Yes Exposure to Tobacco Smoke : Patient smokes Smoking Status : Current every day smoker LEORA MALONEY LPN - 06/28/2014 10:14 CDT Tobacco Use Grid Type : Cigarettes Cigarette Use Packs/Day : 0.3 LEORA MALONEY LPN - 06/28/2014 10:14 CDT Caffeine Use Grid Caffeine Use : None LEORA MALONEY LPN - 06/28/2014 10:14 CDT Recreational Drug Use Grid Drug Use : None LEORA MALONEY [employer] SALESPERSON - 06/28/2014 10:14 CDT Source: [facility] POWERCHART Document Id: [id number] CDT!39 documented in this encounter Plan of Treatment Upcoming Encounters Date Type Specialty Care Team Description 08/30/2022 Clinical Communication Admitting/Central Scheduling 09/02/2022 Comprehensive Visit Endocrinology Ricardo Winkler APRN, C.N.P., D.N.P. [address] [place] [phone] documented as of this encounter Procedures Procedure Name Priority Date/Time Associated Diagnosis Comme nts TEST, U Routine 06/28/2014 10:25 AM Res ults for this CDT procedure are i n the results section. documented in this encounter Results (ABNORMAL) Test, Qualitative, Urine (06/28/2014 10:25 AM CDT) [facility] gist Method Time Signature HXBeta-hCG Positive (A) POWERCHART Qualitative Urine Specimen (Source) Anatomical Collection Method Collection Time Re ceived Time Location / / Volume Laterality Urine 06/28/2014 10:25 AM CDT Yarelis Reyes M.D. LAB URINE ORDERABLES Performing Organization Address City/State/ZIP Code Phon e Number POWERCHART documented in this encounter Visit Diagnoses Not on filedocumented in this encounter Additional Health Concerns Assessment Noted Time PHQ-9 Depression Total Score: 22 10/04/2013 2:31 PM CS T documented as of this encounter
--- OUTSIDE RECORDS SUMMARY | 2022-08-16 21:34 | XMS_ITS | Encounter Summary ---
:1985 Author Organization [facility] Address [address] [place] [address] Care Team Providers Name Role Phone Unavailable Primary Care Provider Unavailable Encounter Details Date Type Department Care Team Description 12/29/2013 Hospital Encounter [facility]X [facility] Yarelis Dial i, M.D. [address] [place] [address] (Wo rk) Social History Tobacco [...] do you attend gnosticism or Never 2021 protestant services? Do you [...] Reading Time Taken Comments Blood Pressure 98/64 12/29/2013 2:57 PM CNC MAINTENANCE MECHANIC Pulse 72 12/29/2013 2:57 PM CNC MAINTENANCE MECHANIC Temperature - - Respiratory Rate 16 12/29/2013 2:57 PM CNC MAINTENANCE MECHANIC Oxygen Saturation - - Inhaled Oxygen Concentration - - Weight 67.5 kg (148 lb 13 oz) 12/29/2013 2:57 PM CNC MAINTENANCE MECHANIC Height 151 cm (4' 11.45) 12/29/2013 2:57 PM CNC MAINTENANCE MECHANIC Body Mass Index 29.6 12/29/2013 2:57 PM CNC MAINTENANCE MECHANIC documented in this encounter Progress Notes Yarelis Steinberg M.D. - 12/29/2013 2:08 PM CST [id number] CHIEF COMPLAINT/ REASON FOR VISIT Review medications. HISTORY OF PRESENT ILLNESS Samuel is a 28 year old female who presents to the clinic today to review medications. She has headaches almost daily. She reports frequent anxiety and insomnia. She had a recent weight gain of approximately 20 pounds. Her Ortho- Evra patch is not covered by her insurance and she is interested in a more cost effective form of contraception. She has a history of PCOS and has followed with Dr. Enriquez in the past. She reports an increase in acne and a change in her voice. The patient denies any additional questions or concerns at this time. MEDICATIONS Post-visit Medication Reconciliation Reviewed and are as outlined in the EMR including 1. Spironolactone 25mg once daily, prescribed today. 2. TriNessa oral tablet once daily, prescribed today. ALLERGIES No known allergies. SYSTEMS REVIEW See HPI. PAST MEDICAL/SURGICAL HISTORY 1. Polycystic ovarian syndrome. 2. Depression 3. History of cervical dysplasia. 4. Headache. 5. 5, para 3 PREVENTIVE SERVICES Tobacco use: Yes. VITAL SIGNS HEIGHT: 151 cm WEIGHT: 67.5 kg BMI: 29.6 kg/m2 TEMPERATURE: 36.3 DegC PULSE: 72 /min RESPIRATORY RATE: 16 /min BLOOD PRESSURE: 98 mmHg/64 mmHg PHYSICAL EXAMINATION GENERAL: Patient is alert and oriented times three, in no acute distress, good hygiene and is dressed appropriately. HEART: Regular rate and rhythm without murmur. LUNGS: Clear to auscultation. EXTREMITIES: Within normal limits. IMPRESSION/REPORT/PLAN 1. She is referred to a local therapist to evaluate for anxiety and attention deficit disorder. 2. Polycystic ovarian syndrome: Spironolactone is prescribed today. She will follow up in one month. 3. Contraception: TriNessa oral contraceptives are prescribed today. 4. Follow up: The patient will contact the clinic with any new or worsening symptoms. This document serves as a record of services personally performed by Yarelis Reyes MD. It was created on their behalf by Samuel Perea, a trained medical donation professional. The creation of this record is based on the scribe's personal observations and the provider's statements to them. This document has been matilda cked and approved by the attending provider. Yarelis Reyes M.D./carlo Electronically Signed By: YARELIS REYES MD On: 01/14/2014 02:26 PM Source: [facility] MHSDOLBEYNONRADSYS Document Id: [id number] MAINTENANCE MECHANIC documented in this encounter Miscellaneous Notes Miscellaneous - Yarelis Steinberg M.D. - 12/29/2013 10:15 PM CNC MAINTENANCE MECHANIC Ambulatory Patient Summary [address] [id number] Visit Information Name: SAMUEL NG [facility] Number: [id number] Current Date: 12/29/2013 22:15:30 Physicians Attending Provider: YARELIS REYES MD Primary [...] Take Indications/Special Instructions/Comments/Notes for Patient Medication Changes/Routing norgestimate-ethinyl estradiol (TriNessa oral tablet) 1 Tablet(s), Oral, once a day New Routed to [facility] [address] [place], [place] [phone] spironolactone (spironolactone 25 mg oral tablet) 1 Tablet(s), Oral, once a day New Routed to [facility] [address] [place], [place] [id number] venlafaxine (Effexor XR 37.5 mg oral capsule, extended release) 1 cap, Oral, once a day Stop Taking the Following Medications: Medication list as of 12-29-13 22:15 Attention: If you have any medications at home that are not on this list, DO NOT take them until youcontact your provider for clarification. Give a copy of your medication list to your primary care provider. Update your medication list any time medications or doses are changed and carry your medication list at all times in case of emergency. Your Allergies & Intolerances Substance Reaction Symptoms [...] appointment detail needed. Your Goals/Additional instructions: Source: [facility] POWERCHART Document Id: [id number] MAINTENANCE MECHANIC Miscellaneous - Yarelis Steinberg M.D. - 12/29/2013 10:15 PM CNC MAINTENANCE MECHANIC Ambulatory Depart Summary [address] [place] [address] Visit Information Name: SAMUEL NG [facility] Number: [id number] Visit Date: 12/29/2013 22:15:28 Attending Provider: YARELIS REYES MD Primary Care [...] Take Indications/Special Instructions/Comments/Notes for Patient Medication Changes/Routing norgestimate-ethinyl estradiol (TriNessa oral tablet) 1 Tablet(s), Oral, once a day New Routed to [facility] [address] [place] [address] spironolactone (spironolactone 25 mg oral tablet) 1 Tablet(s), Oral, once a day New Routed to [facility] [address] [place] [address] venlafaxine (Effexor XR 37.5 mg oral capsule, extended release) 1 cap, Oral, once a day Stop Taking the Following Medications: Medication list as of 12-29-13 22:15 Attention: If you have any medications at home that are not on this list, DO NOT take them until youcontact your provider for clarification. Give a copy of your medication list to your primary care provider. Update your medication list any time medications or doses are changed and carry your medication list at all times in case of emergency. Additional Information: Source: [facility] POWERCHART Document Id: [id number] MAINTENANCE MECHANIC Miscellaneous - Pretty Avila, L.P.N. - 12/29/2013 2:57 PM CST Adult Seasonal Greenery Bundler Intake/History Adult Seasonal Greenery Bundler Intake/History Entered On: 12/29/2013 14:58 CNC MAINTENANCE MECHANIC Performed On: 12/29/2013 14:57 CNC MAINTENANCE MECHANIC by PRETTY AVILA Intake Chief Complaint : meds and weight gain Temperature Core : 36.3 DegC(Converted to: 97.3 DegF) (LOW) Peripheral Pulse Rate : 72 /min Respiratory Rate : 16 /min Systolic Blood Pressure : 98 mmHg Diastolic Blood Pressure : 64 mmHg NIBP Mean : 75 mmHg BP Location : Right upper extremity Blood Pressure Cuff Size : Regular Height : 151 cm(Converted to: 4 ft 11 inch(es), 59.45 inch(es)) Actual Weight : 67.5 kg(Converted to: 148 lb 13 oz) Weight Source : Standing scale Dosing Weight Clinic : 67.5 kg Clinic BSA : 1.68 Body Mass Index : 29.6 kg/m2 PRETTY AVILA - 12/29/2013 14:57 CNC MAINTENANCE MECHANIC General Info Information Given By : Patient Languages : Kyrgyz PRETTY AVILA 12/29/2013 14:57 CNC MAINTENANCE MECHANIC Subjective Pain Symptoms : No PRETTY AVILA 12/29/2013 14:57 CNC MAINTENANCE MECHANIC Dependent Habits Tobacco Use/Currently Using : Yes Exposure to Tobacco Smoke : Patient smokes Smoking Status : Current every day smoker PRETTY AVILA 12/29/2013 14:57 CNC MAINTENANCE MECHANIC Tobacco Use Grid Type : Cigarettes Cigarette Use Packs/Day : 0.3 PRETTY AVILA 12/29/2013 14:57 CNC MAINTENANCE MECHANIC Caffeine Use Grid Caffeine Use : None PRETTY AVILA 12/29/2013 14:57 CNC MAINTENANCE MECHANIC Recreational Drug Use Grid Drug Use : None PRETTY AVILA 12/29/2013 14:57 CNC MAINTENANCE MECHANIC Source: [facility] POWERCHART Document Id: [id number] CNC MAINTENANCE MECHANIC!36 MAINTENANCE MECHANIC documented in this encounter Plan of Treatment Upcoming Encounters Date Type Specialty Care Team Description 08/30/2022 Clinical Communication Admitting/Central Scheduling 09/02/2022 Comprehensive Visit Endocrinology Ricardo Winkler APRN, C.N.P., D.N.P. [address] [place] [phone] documented as of this encounter Visit Diagnoses Not on filedocumented in this encounter Additional Health Concerns Assessment Noted Time PHQ-9 Depression Total Score: 22 10/04/2013 2:31 PM CS T documented as of this encounter
--- OUTSIDE RECORDS SUMMARY | 2022-08-16 21:34 | XMS_ITS | Encounter Summary ---
:1985 Author Organization [facility] Address [address] [place] [address] Care Team Providers Name Role Phone Unavailable Primary Care Provider Unavailable Encounter Details Date Type Department Care Team Description 08/23/2014 Hospital Encounter HX [facility] Alessandro Matias M.D. [address] [place], [place] [address] (Wo rk) Social History Tobacco Use Types [...] or relatives? How often do you attend anabaptist or Never 2021 nondenominational services? Do you belong to any clubs or No 01/25/2022 organizations such as anabaptist groups, unions, fraternal or athletic groups, or [...] Reading Time Taken Comments Blood Pressure 94/60 08/23/2014 10:37 AM CDT Pulse 72 08/23/2014 10:37 AM CDT Temperature - - Respiratory Rate 12 08/23/2014 10:37 AM CDT Oxygen Saturation - - Inhaled Oxygen Concentration - - Weight 73 kg (160 lb 15 oz) 08/23/2014 10:37 AM CDT Height 152 cm (4' 11.84) 08/23/2014 10:30 AM CDT Body Mass Index 31.6 08/23/2014 10:30 AM CDT documented in this encounter Progress Notes Maddie Matias M.D. - 08/23/2014 10:29 AM CDT [id number] CHIEF COMPLAINT/REASON FOR VISIT Headache. HISTORY OF PRESENT ILLNESS A 28-year-old G6, P3-0-2-3, 13-6/7 weeks gestation by an LMP of 05/18/2014, with an EDC of 02/22/2015, presents to clinic secondary to headaches for the last few weeks. On all but 4 of the days she hasbeen taking some acetaminophen. Of note, did quit smoking, 07/28/2014. Has tried some caffeine, which was not helpful. Is not nauseated. Had her vision checked in recent past, states it was stable. Does have some tension in her jaw, wonders if she has TMJ and wonders if this may indeed be stress. Has no SOB. No chest pain. 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 Normally follows withDr. Enriquez for her OB care. Her last appointment was 08/05/2014 and she has an appointment coming up next week. EMR reviewed. MEDICATIONS 1. vitamins orally each day. 2. Acetaminophen over the counter as needed. PREVENTIVE SERVICES Tobacco: Quit, 07/28/2014. Mammogram: Not applicable secondary to stated age. Pap smear: 08/05/2014. Chlamydia: 06/29/2014. Colon screen: Not applicable secondary to stated age. Depression: Not at the present time. Asthma: No. Lipids: Not applicable secondary to . Tetanus: 12/29/2009. Pneumovax: Not applicable secondary to stated age. Influenza: Not applicable, as no product is available. VITAL SIGNS Weight 73 kg, temperature 37, respiratory rate 12, pulse 72, systolic 94, diastolic 60. PHYSICAL EXAMINATION GENERAL: Neatly dressed, well groomed. HEENT: Head: No evidence of trauma, tenderness, or masses. Ears: TMs are hernandez. Good visualization oflandmarks. Eyes: PERRLA. Funduscopic exam grossly normal. Nose: Mucosal membranes pink and moist. Oral: No exudates. NECK: Supple. Trachea midline. LYMPH NODES: No cervical adenopathy. THYROID: No masses, tenderness, or enlargement. LUNGS: Clear to auscultation. CARDIOVASCULAR: Regular rate and rhythm. EXTREMITIES: No edema. GENITOURINARY: heart tones in the 160s. DIAGNOSTICS Urinalysis: Specific gravity 1.020, pH 6.5, protein negative, glucose negative, ketones negative, bilirubin negative, urobilirubin 0.2, blood negative, nitrates negative, leukocyte esterase small. IMPRESSION/REPORT/PLAN Headaches in . PLAN: Symptoms could indeed reflect variable etiologies, including recently quitting smoking, her episodic caffeine use and merely being . Supportive measures discussed in detail. Acetaminophenwould be the drug of choice. Other medicines at this time do not seem appropriate. Would recommend fo llowing up with her dentist, as temporomandibular joint could be playing a role and a mouth guard might be helpful. She has had her vision checked in recent weeks. She will follow up with her regular health care provider next week for regular obstetrical care or if any interval change occurs. She is comfortable with this plan. Maddie Matias M.D./cristiano Electronically Signed By: MADDIE MATIAS MD On: 08/24/2014 01:48 PM Modified by and Electronically Signed by: MADDIE MATIAS MD On: 08/24/2014 01:48 PM [facility] Document Id: [id number] documented in this encounter Miscellaneous Notes Miscellaneous - Maddie Matias M.D. - 08/23/2014 11:09 AM CDT Ambulatory Patient Summary [address] [id number] Visit Information Name: KEILY NG [facility] Number: [id number] Current Date: 08/23/2014 11:09:37 Physicians Attending Provider: MADDIE MATIAS MD Primary Care Provider: KAREN REYES MD [...] the Following Medications: Medication list as of 08-23-14 11:09 Attention: If you have any medications at home that are not on this list, DO NOT take them until youcontact your provider for clarification. Give a copy of your medication list to your primary care provider. Update your medication list any time medications or doses are changed and carry your medication list at all times in case of emergency. Electronically Signed By: MADDIE MATIAS MD Signed On:23-AUG-2014 11:09:29 Your Allergies & Intolerances Substance Reaction Symptoms Category Comments No Known Allergies Drug Your Problem List Problem Status Onset Comments Tobacco Use Disorder Active 04/02/2010 Bipolar disorder, depressed Active Polycystic ovarian disease Active Personal History of Cervical Dysplasia Active 10/03/2006 Depressive disorder, major, recurrent episode Active Normal Preg Not First 1st Preg Active 06/29/2014 Your Upcoming Appointments Date Time Location Provider 09/02/2014 13:30 [facility] [employer] Mina GALLARDO, Jhonny Dockery Attention: Contact your local Clinic if further appointment detail needed. Your Goals/Additional instructions: Source: [facility] POWERCHART Document Id: [id number] Nikhil - Maddei Matias M.D. - 08/23/2014 11:09 AM CDT Ambulatory Discharge Medication List [address] [id number] Visit Information Name: KEILY NG [facility] Number: [id number] Visit Date: 08/23/2014 11:09:36 Attending Provider: MADDIE MATIAS MD Primary Care Provider: KAREN REYES MD [...] the Following Medications: Medication list as of 08-23-14 11:09 Attention: If you have any medications at home that are not on this list, DO NOT take them until youcontact your provider for clarification. Give a copy of your medication list to your primary care provider. Update your medication list any time medications or doses are changed and carry your medication list at all times in case of emergency. 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 Entered On: 08/23/2014 10:40 CDT Performed On: 08/23/2014 10:37 CDT by NINOSKA HERNANDEZ LPN Intake Chief Complaint : headache Temperature Core : 37 DegC(Converted to: 98.6 DegF) Peripheral Pulse Rate : 72 /min Respiratory Rate : 12 /min (LOW) Systolic Blood Pressure : 94 mmHg Diastolic Blood Pressure : 60 mmHg NIBP Mean : 71 mmHg BP Location : Left upper extremity Blood Pressure Cuff Size : Regular Actual Weight : 73 kg(Converted to: 160 lb 15 oz) Dosing Weight Clinic : 73 kg NINOSKA HERNANDEZ LPN - 08/23/2014 10:37 CDT General Info Languages : Turkish Is Patient Female and 13-50 no hysterectomy : No NINOSKA HERNANDEZ LPN - 08/23/2014 10:37 CDT Subjective Pain Symptoms : Yes NINOSKA HERNANDEZ LPN - 08/23/2014 10:37 CDT Pain Pain Assessment Grid Pain 1 Pain 2 Location : Head Lower back NINOSKA HERNANDEZ LPN - 08/23/2014 10:37 CDT NINOSKA HERNANDEZ LPN - 08/23/2014 10:37 CDT Dependent Habits Tobacco Use/Currently Using : No Tobacco Use/Last 12 months : No Exposure to Tobacco Smoke : Patient smokes Smoking Status : Former smoker NINOSKA HERNANDEZ LPN - 08/23/2014 10:37 CDT Tobacco Use Grid Type : Cigarettes Cigarette Use Packs/Day : 0.2 NINOSKA HERNANDEZ LPN - 08/23/2014 10:37 CDT Caffeine Use Grid Caffeine Use : None NINOSKA HERNANDEZ LPN - 08/23/2014 10:37 CDT Recreational Drug Use Grid Drug Use : None NINOSKA HERNANDEZ LPN - 08/23/2014 10:37 CDT Source: [employer] Document Id: [id number] CDT!39 documented in this encounter Plan of Treatment Upcoming Encounters Date Type Specialty Care Team Description 08/30/2022 Clinical Communication Admitting/Central Scheduling 09/02/2022 Comprehensive Visit Endocrinology Ricardo Winkler APRN, C.N.P., D.N.P. [address] [place] [address] documented as of this encounter Procedures Procedure Name Priority Date/Time Associated Diagnosis Comme nts DIPSTICK, U Routine 08/23/2014 10:44 AM Results for this CDT procedure are i n the results section . documented in this encounter Results (ABNORMAL) Dipstick, Urine (08/23/2014 10:44 AM CDT) [facility] gist Method Time Signature Source Clean Void POWERCHART Urine HXUr Color Yellow POWERCHART Clarity Clear POWERCHART Glucose Negative MGDL POWERCHART HXBILIRUBIN Negative POWERCHART Ketones, QL(U) Negative MGDL POWERCHART Specific 1.020 POWERCHART [place], POCT, U HXBLOOD Negative POWERCHART pH, POCT, Urine 6.5 POWERCHART Protein, Ur, Dip Negative MGDL POWERCHART Urobilinogen 0.2 MGDL POWERCHART HXNITRITE Negative POWERCHART Leukocyte Small (A) POWERCHART Esterase Specimen (Source) Anatomical Collection Method Collection Time Re ceived Time Location / / Volume Laterality Urine 08/23/2014 10:44 AM CDT Maddie Matias M.D. LAB URINE ORDERABLES Performing Organization Address City/State/ZIP Code Phon e Number POWERCHART documented in this encounter Visit Diagnoses Not on filedocumented in this encounter Additional Health Concerns Assessment Noted Time PHQ-9 Depression Total Score: 22 10/04/2013 2:31 PM CS T documented as of this encounter
--- OUTSIDE RECORDS SUMMARY | 2022-08-16 21:34 | XMS_ITS | Encounter Summary ---
:1985 Author Organization [facility] Address [address] [place] [address] Care Team Providers Name Role Phone Unavailable Primary Care Provider Unavailable Encounter Details Date Type Department Care Team Description 05/25/2014 Hospital Encounter HX NO MAPPING Yarelis Reyes M.D. [address] [place], [place] [phone] (Wo rk) Social History [...] or relatives? How often do you attend quaker or Never 2021 rastafari services? Do you belong to any clubs or No 01/25/2022 organizations such as quaker groups, unions, fraternal or athletic groups, or [...] Ricardo Winkler, SILVIO, C.N.P., D.N.P. [address] [place] [address] documented as of this encounter Visit Diagnoses Not on filedocumented in this encounter Additional Health Concerns Assessment Noted Time PHQ-9 Depression Total Score: 22 10/04/2013 2:31 PM CS T documented as of this encounter
--- OUTSIDE RECORDS SUMMARY | 2022-08-16 21:34 | XMS_ITS | Encounter Summary ---
:1985 Author Organization [facility] Address [address] [place] [address] Care Team Providers Name Role Phone Unavailable Primary Care Provider Unavailable Encounter Details Date Type Department Care Team Description 09/05/2014 Hospital Encounter HX [facility] Narinder De [...] or relatives? How often do you attend hoahaoism or Never 2021 mandaen services? Do you belong to any clubs or No 01/25/2022 organizations such as hoahaoism groups, unions, fraternal or athletic groups, or [...] Sign Reading Time Taken Comments Blood Pressure 86/44 09/05/2014 11:11 AM CDT Pulse - - Temperature - - Respiratory Rate - - Oxygen Saturation - - Inhaled Oxygen Concentration - - Weight 71.8 kg (158 lb 4.6 oz) 09/05/2014 11:11 AM CDT Height 152 cm (4' 11.84) 09/05/2014 11:11 AM CDT Body Mass Index 31.08 09/05/2014 11:11 AM CDT documented in this encounter Progress Notes Narinder Enriquez M.D. - 09/05/2014 11:04 AM CDT [id number] CHIEF COMPLAINT/REASON FOR VISIT OB visit. HISTORY OF PRESENT ILLNESS This patient is a 28-year-old, G6, P3-0-2-3 female with LMP of 05/18/2014 and EDC of 02/22/2015 at 15-6/7 weeks. Patient presents for OB visit. She is doing well. Her nausea symptoms have resolved. No emesis. No abdominal pain, cramping, tenderness, or discomfort. No nausea or vomiting. No change in bowel habits. No difficulty urinating. No dysuria, hematuria or flank pain. No fevers or chills. No shortness of breath or chest pain. No depression symptoms. The patient has not smoked tobacco since 07/28/2014. The patient does complain of some headaches that are now occurring daily. They have been ongoing forseveral weeks. The patient reports she has had recurrent tension headaches in the past. She has alsohad migraine headaches in the past. The patient has tried Tylenol as well as caffeine with minimal improvement in her symptoms. The patient does report that her jaw feels tighter, and she thinks that she might be getting TMJ and is wondering if this might be contributing to her headaches. The patient reports that light sensitivity occurs when she has the headaches but no sound sensitivity. She cannotrecall any other association with the headaches. No current headache. ALLERGIES No known drug allergies. MEDICATIONS Generic [...] Miscarriage, 2005. SOCIAL HISTORY The patient quit smoking on 08/27/2014. No alcohol or drug use. No history of STD or PID. No historyof abuse. VITAL SIGNS Weight 71.8 kg, height 152 cm. Blood pressure 86/44, pulse 70. PHYSICAL EXAMINATION GENERAL: Well-developed, well-nourished female in no apparent distress. Alert and oriented x3. ABDOMEN: Soft, nontender, nondistended. Positive bowel sounds. Fundal height not palpated. Positive Doptones are auscultated, 158 beats per minute. EXTREMITIES: No clubbing, cyanosis or edema. Nontender bilaterally. GENITALIA: Exam deferred. HEAD AND NECK: Oropharynx is clear. No cervical adenopathy or tenderness. No sinus tenderness or pressure. Pupils equally round and reactive to light and accommodation. No papilledema bilaterally. DIAGNOSTICS 08/05/2014: Blood type O positive, antibody screen negative, hemoglobin 11.3, hematocrit 34.2, platelets 347, rubella immune, serology negative, hepatitis B surface antigen negative, HIV negative, chlamydia negative, gonorrhea negative, TSH 1.76, vitamin D 101. Pap smear negative. IMPRESSION/REPORT/PLAN 1. Intrauterine at 15-6/7 weeks. Positive cardiac activity. 2. History of tobacco abuse. Patient quit smoking 07/28/2014. 3. Recurrent headaches. Tension headache versus migraine headache. 4. History of depression, asymptomatic. 5. History of cervical dysplasia and LEEP procedure, 2005. 6. History of polycystic ovarian syndrome, currently asymptomatic. PLAN: 1. I reviewed new obstetric lab results with the patient including Pap smear which isnormal. 2. I discussed symptomatic relief measures for headaches with the patient. I encouraged rest and relaxation. I encouraged decreasing stress. I encouraged massage. I discussed hot bath. I discussed applying heat to her neck. I discussed swme-tph-coxenxg medications including Tylenol. I discussed Excedrin Migraine use in . 3. I would like the patient to see her dentist for evaluation of possible temporomandibular joint syndrome. She reports that her jaw is more tight, and she thinks this might be related to her headaches. She reports a family history of temporomandibular joint, and she has other family members who wear a brace to help hold their jaw at a proper alignment. 4. If the patient's headaches symptoms worsen, I would like for her follow up for evaluation. I discussed the possibility of a prescription for Fioricet or possible Flexeril. If the patient's headachescontinue, I would like for her to see her primary provider for further evaluation and consideration of seeing Neurology in . 5. Routine obstetric precautions, recommendations, and instructions are reviewed with patient including movement and kick counts. 6. Routine depression precautions reviewed with the patient. 7. I would like the patient to follow up in 3 to 4 weeks for obstetric visit or be seen sooner as needed. 8. I spent 25 minutes ehgg-qi-sdim time with patient, with over 50% of that time spent in counseling. Narinder Enriquez M.D./cristiano Electronically Signed By: NARINDER ENRIQUEZ MD On: 09/07/2014 08:38 AM Source: [facility]SD[facility] Document Id: [id number] documented in this encounter Miscellaneous Notes Miscellaneous - Narinder Enriquez M.D. - 09/05/2014 12:20 PM CDT Ambulatory Patient Summary [address] [id number] Visit Information Name: SAMUEL NG [facility] Number: [id number] Current Date: 09/05/2014 12:20:46 Physicians Attending Provider: NARINDER ENRIQUEZ MD Primary [...] the Following Medications: Medication list as of 09-05-14 12:20 Attention: If you have any medications at [...] Electronically Signed By: NARINDER ENRIQUEZ MD Signed On:05-SEP-2014 12:20:43 Your Allergies & Intolerances Substance Reaction Symptoms [...] Date Time Location Provider 09/26/2014 11:00 [facility] [employer]IDENTIAL [employer] SALES CONSULTANT Narinder Enriquez MD 10/17/2014 11:00 [facility] [employer]IDENT[employer] SAL[employer] CONSULTANT Narinder Enriquez MD Attention: Contact your local Clinic if further appointment detail needed. Your Goals/Additional instructions: Source: [facility] POWERCHART Document Id: [id number] Miscellaneous - Narinder Enriquez M.D. - 09/05/2014 12:20 PM CDT Ambulatory Discharge Medication List [address] [id number] Visit Information Name: SAMUEL NG [facility] Number: [id number] Visit Date: 09/05/2014 12:20:45 Attending Provider: NARINDER ENRIQUEZ MD Primary Care [...] the Following Medications: Medication list as of 09-05-14 12:20 Attention: If you have any medications at [...] Electronically Signed By: NARINDER ENRIQUEZ MD Signed On:05-SEP-2014 12:20:43 Additional Information: Source: [facility] POWERCHART Document Id: [id number] Miscellaneous - Susana Morgan, L.P.N. 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 Entered On: 09/05/2014 11:13 CDT Performed On: 09/05/2014 11:11 CDT by SUSANA MORGAN LPN Intake Chief Complaint : Ob visit 15 6/7 weeks LMP Date : 05/18/14 Systolic Blood Pressure : 86 mmHg (<LLOW) Diastolic Blood Pressure : 44 mmHg (<LLOW) NIBP Mean : 58 mmHg BP Location : Left upper extremity Blood Pressure Cuff Size : Regular Height : 152 cm(Converted to: 5 ft 0 inch(es), 60 inch(es)) Actual Weight : 71.8 kg(Converted to: 158 lb 5 oz) Weight Source : Standing scale Dosing Weight Clinic : 71.8 kg Clinic BSA : 1.74 Body Mass Index : 31.08 kg/m2 SUSANA MORGAN LPN - 09/05/2014 11:11 CDT General Info Information Given By : Patient Languages : Russian Is Patient Female and 13-50 no hysterectomy : Yes Status : Confirmed positive Are you ? : No SUSANA MORGAN [facility] - 09/05/2014 11:11 CDT Subjective Pain Symptoms : No SUSANA MORGAN [facility] - 09/05/2014 11:11 CDT Dependent Habits Tobacco Use/Currently Using : Yes Exposure to Tobacco Smoke : Patient smokes Smoking Status : Current every day smoker SUSANA MORGAN [facility] - 09/05/2014 11:11 CDT Tobacco Use Grid Type : Cigarettes Cigarette Use Packs/Day : 0.2 SUSANA MORGAN [facility] 09/05/2014 11:11 CDT Caffeine Use Grid Caffeine Use : None SUSANA MORGAN [facility] - 09/05/2014 11:11 CDT Recreational Drug Use Grid Drug Use : None SUSANA MORGAN [facility] 09/05/2014 11:11 CDT [facility] Document Id: [id number] CDT!37 documented in this encounter Plan of Treatment Upcoming Encounters Date Type Specialty Care Team Description 08/30/2022 Clinical Communication Admitting/Central Scheduling 09/02/2022 Comprehensive Visit Endocrinology Ricardo Winkler APRN, C.N.P., D.N.P. [address] [place] [address] documented as of this encounter Visit Diagnoses Not on filedocumented in this encounter Additional Health Concerns Assessment Noted Time PHQ-9 Depression Total Score: 22 10/04/2013 2:31 PM CS T documented as of this encounter
--- OUTSIDE RECORDS SUMMARY | 2022-08-16 21:34 | XMS_ITS | Encounter Summary ---
:1985 Author Organization [facility] Address [address] [place] [address] Care Team Providers Name Role Phone Unavailable Primary Care Provider Unavailable Encounter Details Date Type Department Care Team Description 10/17/2014 Hospital Encounter [facility]X [facility] Narinder De [...] or relatives? How often do you attend oriental orthodox or Never 2021 shinto services? Do you belong to any clubs or No 01/25/2022 organizations such as oriental orthodox groups, unions, fraternal or athletic groups, [...] Sign Reading Time Taken Comments Blood Pressure 88/52 10/17/2014 11:02 AM POOL TABLE MECHANIC Pulse - - Temperature - - Respiratory Rate - - Oxygen Saturation - - Inhaled Oxygen Concentration - - Weight 72 kg (158 lb 11.7 oz) 10/17/2014 11:02 AM POOL TABLE MECHANIC Height 152 cm (4' 11.84) 10/17/2014 11:02 AM POOL TABLE MECHANIC Body Mass Index 31.16 10/17/2014 11:02 AM POOL TABLE MECHANIC documented in this encounter Progress Notes Narinder Enriquez M.D. - 10/17/2014 10:56 AM CST [id number] CHIEF COMPLAINT/REASON FOR VISIT OB visit. HISTORY OF PRESENT ILLNESS This patient is a 29-year-old, G6, P3-0-2-3 female with LMP of 05/18/2014, EDC of 02/22/2015 at 21 and 5/7 weeks. Patient presents for OB visit. She is doing well. She has no complaints. She does report some increased acne in the last few weeks. No pain, cramping, tenderness or discomfort. No leaking of fluid or vaginal bleeding. She reports active movement. No headaches or vision changes. No depression symptoms. No difficulty urinating. ALLERGIES No known drug allergies. MEDICATIONS Generic vitamins. PAST MEDICAL/SURGICAL HISTORY PAST MEDICAL HISTORY: 1. History of tobacco abuse. Patient quit on 07/28/2014. 2. History of depression. 3. History of bipolar disorder. 4. History of cervical dysplasia in 2005. 5. History of polycystic ovarian syndrome. PAST SURGICAL HISTORY: 1. Laparoscopic appendectomy, 2012. 2. LEEP procedure 2005. PAST OBSTETRICAL HISTORY: 1. Vaginal delivery 02/10/2002. 2. Vaginal delivery 08/16/2008. 3. Vaginal delivery 11/06/2010. 4. Miscarriage 2004. 5. Miscarriage 2005. SOCIAL HISTORY Patient quit smoking on 07/28/2014. She denies alcohol or drug use. No history of STD or PID. No history of abuse. VITAL SIGNS Weight 72.0 kg, height 152 cm, blood pressure 88/52, pulse 70. PHYSICAL EXAMINATION GENERAL: Well-developed, well-nourished, gravid female in no apparent distress. Alert and oriented x3. Normal affect. ABDOMEN: Gravid, soft, nontender, positive bowel sounds. Fundal height 22 cm. Positive Doptones are auscultated, 140 beats per minute. EXTREMITIES: No clubbing, cyanosis, or edema. Nontender bilaterally. GENITALIA: Deferred. DIAGNOSTICS OB ultrasound is performed. Please see separate report for details. IMPRESSION/REPORT/PLAN 1. Intrauterine at 21 and 5/7 weeks. Positive cardiac activity. 2. History of tobacco abuse. Patient quit smoking 07/28/2014. PLAN: 1. I reviewed OB ultrasound results with patient, showing intrauterine at 21 and 2/7 weekswhich is consistent with dates. Estimated weight is 407 g which is 32nd percentile for growth.No gross anomalies are visualized. appears to be male. Placenta is located anteriorly without placenta previa. Normal fluid level. No gross anomalies are visualized. 2. I would like the patient to follow up in 3 weeks for OB visit or be seen sooner as needed. 3. Routine OB precautions, recommendations, instructions are reviewed with patient including movement and kick count. 4. labor precautions are reviewed with patient. 5. Encouraged patient to continue with smoking cessation efforts. 6. I discussed giving the patient another Adacel tetanus booster with pertussis, as her last immunization was in 2009. I discussed the rationale for giving it early in . The patient declines. 7. I spent 25 minutes of [id number] time with patient, with over 50% of that time spent in counseling. Narinder Enriquez M.D./cristiano Electronically Signed By: NARINDER ENRIQUEZ MD On: 10/17/2014 03:13 PM Source: [facility] MHSDOLBEYNONRADSYS Document Id: [id number] TABLE MECHANIC documented in this encounter Miscellaneous Notes Miscellaneous - Narinder Enriquez M.D. - 10/17/2014 12:38 PM CST Ambulatory Patient Summary [address] [id number] Visit Information Name: SAMUEL NG [facility] Number: [id number] Current Date: 10/17/2014 12:38:21 Physicians Attending Provider: NARINDER ENRIQUEZ MD Primary [...] capsule) 1 cap, Oral, once a day This is a CHANGE Stop Taking the Following Medications: multivitamin, ( Multivitamins oral tablet) Medication list as of 10-17-14 12:38 Attention: If you have any medications at [...] Electronically Signed By: NARINDER ENRIQUEZ MD Signed On:17-OCT-2014 12:38:18 Your Allergies & Intolerances Substance Reaction Symptoms [...] Date Time Location Provider 11/07/2014 11:00 [facility] LIFT TRUCK OPERATOR Narinder Enriquez MD Attention: Contact your local Clinic if further appointment detail needed. Your Goals/Additional instructions: Source: [facility] POWERCHART Document Id: [id number] TABLE MECHANIC Miscellaneous - Narinder Enriquez M.D. - 10/17/2014 12:38 PM CST Ambulatory Discharge Medication List [address] [id number] Visit Information Name: SAMUEL NG [facility] Number: [id number] Visit Date: 10/17/2014 12:38:20 Attending Provider: NARINDER ENRIQUEZ MD Primary Care [...] capsule) 1 cap, Oral, once a day This is a CHANGE Stop Taking the Following Medications: multivitamin, ( Multivitamins oral tablet) Medication list as of 10-17-14 12:38 Attention: If you have any medications at [...] Electronically Signed By: NARINDER ENRIQUEZ MD Signed On:17-OCT-2014 12:38:18 Additional Information: Source: [facility] POWERCHART Document Id: [id number] TABLE MECHANIC Miscellaneous - Susana Morgan, L.P.N. - 10/17/2014 11:02 AM CST Adult Line Out Man Intake/History Adult Line Out Man Intake/History Entered On: 10/17/2014 11:03 POOL TABLE MECHANIC Performed On: 10/17/2014 11:02 POOL TABLE MECHANIC by SUSANA MORGAN LPN Intake Chief Complaint : Ob ultrasound 21 5/7 weeks LMP Date : 05/18/14 Systolic Blood Pressure : 88 mmHg (<LLOW) Diastolic Blood Pressure : 52 mmHg NIBP Mean : 64 mmHg BP Location : Left upper extremity Blood Pressure Cuff Size : Regular Height : 152 cm(Converted to: 5 ft 0 inch(es), 60 inch(es)) Actual Weight : 72.0 kg(Converted to: 158 lb 12 oz) Weight Source : Standing scale Dosing Weight Clinic : 72 kg Clinic BSA : 1.74 Body Mass Index : 31.16 kg/m2 SUSANA MORGAN [facility] 10/17/2014 11:02 POOL TABLE MECHANIC General Info Information Given By : Patient Languages : Frisian Is Patient Female and 13-50 no hysterectomy : Yes Status : Confirmed positive Are you ? : No SUSANA MORGAN LPN - 10/17/2014 11:02 POOL TABLE MECHANIC Subjective Pain Symptoms : No SUASNA MORGAN LPN 10/17/2014 11:02 POOL TABLE MECHANIC Dependent Habits Tobacco Use/Currently Using : Yes Exposure to Tobacco Smoke : Patient smokes Smoking Status : Current every day smoker SUSANA MORGAN [facility] 10/17/2014 11:02 POOL TABLE MECHANIC Tobacco Use Grid Type : Cigarettes Cigarette Use Packs/Day : 0.2 SUSANA MORGAN LPN 10/17/2014 11:02 POOL TABLE MECHANIC Caffeine Use Grid Caffeine Use : None SUSANA MORGAN LPN - 10/17/2014 11:02 POOL TABLE MECHANIC Recreational Drug Use Grid Drug Use : None SUSANA MORGAN LPN 10/17/2014 11:02 POOL TABLE MECHANIC ID Screen Drug Resistant Organism : No Travel Within Last 21 Days : No SUSANA MORGAN LPN 10/17/2014 11:02 POOL TABLE MECHANIC Source: [facility] POWERCHART Document Id: [id number] POOL TABLE MECHANIC!40 TABLE MECHANIC documented in this encounter Plan of Treatment Upcoming Encounters Date Type Specialty Care Team Description 08/30/2022 Clinical Communication Admitting/Central Scheduling 09/02/2022 Comprehensive Visit Endocrinology Ricardo Winkler APRN, C.N.P., D.N.P. [address] [place] [phone] documented as of this encounter Visit Diagnoses Not on filedocumented in this encounter Additional Health Concerns Assessment Noted Time PHQ-9 Depression Total Score: 22 10/04/2013 2:31 PM CS T documented as of this encounter
--- OUTSIDE RECORDS SUMMARY | 2022-08-16 21:34 | XMS_ITS | Encounter Summary ---
:1985 Author Organization [facility] Address [address] [place] [address] Care Team Providers Name Role Phone Unavailable Primary Care Provider Unavailable Encounter Details Date Type Department Care Team Description 05/16/2014 Hospital Encounter [facility] Yarelis Leon M.D. [address] [phone] (Wo rk) Social History Tobacco [...] do you attend voodoo or Never 2021 adventist services? Do you [...] - - Height 152 cm (4' 11.84) 05/16/2014 2:31 PM CDT Body Mass Index - - documented in this encounter Plan of Treatment Upcoming Encounters Date Type Specialty Care Team Description 08/30/2022 Clinical Communication Admitting/Central Scheduling 09/02/2022 Comprehensive Visit Endocrinology Ricardo Winkler APRN, C.N.P., D.N.P. [address] [place] [phone] documented as of this encounter Procedures Procedure Name Priority Date/Time Associated Diagnosis Comme nts CBC WITHOUT Routine 05/16/2014 2:33 PM Results f or this DIFFERENTIAL, B CDT procedure ar e in the results section. SPSMA RESULT Routine 05/16/2014 2:33 PM Results f or this CDT procedure are i n the results section. documented in this encounter Results (ABNORMAL) CBC without Differential (05/16/2014 2:33 PM CDT) Analysis Performed At Patho logist Time Signature Leukocytes 18.3 (H) 3.4 - 10.5 POWERCHART X109L Erythrocytes 3.92 3.90 - POWERCHART 5.03 [id number] Hemoglobin 12.4 12.0 - POWERCHART 15.5 GDL Hematocrit 37.7 34.9 - POWERCHART 44.5 MCV 96.2 82.0 - POWERCHART 98.0 FL Platelet Count 398 150 - 450 POWERCHART X109L HX RDW 14.0 11.9 - POWERCHART 15.5 Specimen (Source) Anatomical Collection Method Collection Time Re ceived Time Location / / Volume Laterality Blood 05/16/2014 2:33 PM CDT Yarelis Ritter.D. LAB BLOOD ADD-ON Performing Organization Address City/State/ZIP Code Phon e Number POWERCHART Morphology Evaluation (Special Smear) (05/16/2014 2:33 PM CDT) [facility] gist Method Time Signature Neutrophilic Segs 61 42 - 75 POWERCHART and Bands HXLYMPHOCYTES 28 16 - 52 POWERCHART Monocytes 9 1 - 11 POWERCHART Absolute Basophil 1 0 - 4 POWERCHART HXMorph Eval SeeComment POWERCHART [facility] Comment: Peripheral blood smear reviewed; no diag nostic abnormalities are seen. HXMorph Eval Rev By-[facility] POWER CHART Comment: Test Performed by: [facility] [place] [address] Poultry Picker: Andi hitchcock III, M.D. Specimen (Source) Anatomical Collection Method Collection Time Re ceived Time Location / / Volume Laterality Blood 05/16/2014 2:33 PM CDT Yarelis Reyes M.D. LAB BLOOD ADD-ON Performing Organization Address City/State/ZIP Code Phon e Number POWERCHART documented in this encounter Visit Diagnoses Not on filedocumented in this encounter Additional Health Concerns Assessment Noted Time PHQ-9 Depression Total Score: 22 10/04/2013 2:31 PM CS T documented as of this encounter
--- OUTSIDE RECORDS SUMMARY | 2022-08-16 21:34 | XMS_ITS | Encounter Summary ---
:1985 Author Organization [facility] Address [address] [place] [address] Care Team Providers Name Role Phone Unavailable Primary Care Provider Unavailable Encounter Details Date Type Department Care Team Description 03/25/2014 Hospital Encounter [facility]X [facility] Karen Dial i, M.D. [address] [place] [phone] (Wo rk) Social History Tobacco [...] do you attend lutheran or Never 2021 holiness services? Do you [...] Sign Reading Time Taken Comments Blood Pressure 108/68 03/25/2014 2:32 PM CDT Pulse 84 03/25/2014 2:32 PM CDT Temperature - - Respiratory Rate 16 03/25/2014 2:32 PM CDT Oxygen Saturation - - Inhaled Oxygen Concentration - - Weight 72 kg (158 lb 11.7 oz) 03/25/2014 2:32 PM CDT Height 152 cm (4' 11.84) 03/25/2014 2:32 PM CDT Body Mass Index 31.16 03/25/2014 2:32 PM CDT documented in this encounter Progress Notes Karen Steinberg M.D. - 03/25/2014 2:22 PM CDT [id number] CHIEF COMPLAINT/ REASON FOR VISIT Discuss test results. HISTORY OF PRESENT ILLNESS Keily is a 28 year old female who presents to the clinic today to discuss test results. She had blood labs last week to evaluate weight gain and was found to have a high white blood cell count. This was the morning after she took a dose of dexamethasone to evaluate for Cushings disease. Follow up several days later showed a white count of 13, which was significantly lower, but still elevated. She has had no fevers or any other evidence of illness. She exercises 20-30 minutes daily and has been eating a healthier diet. She drinks water frequently. She does not consume pop. She has PCOS and had an ultrasound within the past few months that revealed one ovarian cyst. She reports acne and a deepeningof her voice. She denies excess hair growth. Her periods have been very light. She is not currently using oral contraceptives, as she had adverse reactions with these in the past. She reports a lack ofmotivation and finds it difficult to get out of bed in the mornings. She has difficulty concentrating on tasks. She tried her friends Adderall and found this to be helpful. She plans to schedule a repeat psych evaluation. The patient denies any additional questions or concerns at this time. MEDICATIONS Post-visit Medication Reconciliation Reviewed and are as outlined in the EMR. ALLERGIES No known allergies. SYSTEMS REVIEW See HPI. PAST MEDICAL/SURGICAL HISTORY 1. Polycystic ovarian syndrome. 2. Depression 3. History of cervical dysplasia. 4. Headache. 5. 5, para 3 PREVENTIVE SERVICES Tobacco use: Yes. VITAL SIGNS HEIGHT: 152 cm WEIGHT: 72 kg BMI: 31.16 kg/m2 TEMPERATURE: 37.1 DegC PULSE: 84 /min RESPIRATORY RATE: 16 /min BLOOD PRESSURE: 108 mmHg/68 mmHg PHYSICAL EXAMINATION GENERAL: Patient is alert and oriented times three, in no acute distress, good hygiene and is dressed appropriately. IMPRESSION/REPORT/PLAN 1. Depression: She will schedule a psych evaluation and will discuss the addition of an antidepressant at that time. 2. Weight gain: She will be referred to a medical claims manager for further evaluation and management. 3. Leukocytosis: She will have a repeat CBC in two weeks. 4. Contraception: She is not interested in oral contraceptives due to weight gain and acne that she perceived was a side effect. 5. Follow up: The patient will contact the clinic with any new or worsening symptoms. This document serves as a record of services personally performed by Karen Baltazar MD. It was created on their behalf by Keily Perea, a trained medical laboratory technical officer. The creation of this record is based on the scribe's personal observations and the provider's statements to them. This document has been matilda cked and approved by the attending provider. Karen Baltazar M.D./carlo Electronically Signed By: KAREN BALTAZAR MD On: 03/25/2014 11:07 PM Source: [facility] MHSDOLBEYNRADHA Document Id: [id number] documented in this encounter Nursing Notes Conversion, Historical Provider Ser - 03/25/2014 3:32 PM CDT pending appointments pt given number to call to associated in psych for dr salazar. referral for medical claims manager at [facility] being processed. Electronically Signed By: LEORA MALONEY LPN On: 03/25/2014 03:39 PM Source: [facility] POWERCHART Document Id: [id number] documented in this encounter Miscellaneous Notes Miscellaneous - Karen Steinberg M.D. - 03/25/2014 10:54 PM CDT Ambulatory Patient Summary [address] [id number] Visit Information Name: KEILY NG [facility] Number: [id number] Current Date: 03/25/2014 22:54:30 Physicians Attending Provider: KAREN BALTAZAR MD Primary Care Provider: KAREN BALTAZAR MD [...] Take Indications/Special Instructions/Comments/Notes for Patient Medication Changes/Routing *dexamethasone (dexamethasone 1 mg oral tablet) See Instructions 1 tab(s) PO at 11 pm *norgestimate-ethinyl estradiol (TriNessa oral tablet) 1 Tablet(s), Oral, once a day *spironolactone (spironolactone 25 mg oral tablet) 1 Tablet(s), Oral, once a day *venlafaxine (Effexor XR 37.5 mg oral capsule, extended release) 1 cap, Oral, once a day * You have let us know that you are not taking this medication as listed. Please talk with your primary care provider or the health care provider who prescribed the medication as soon as possible. Stop Taking the Following Medications: Medication list as of 03-25-14 22:54 Attention: If you have any medications at home that are not on this list, DO NOT take them until youcontact your provider for clarification. Give a copy of your medication list to your primary care provider. Update your medication list any time medications or doses are changed and carry your medication list at all times in case of emergency. Electronically Signed By: KAREN BALTAZAR MD Signed On:25-MAR-2014 22:51:39 Your Allergies & Intolerances Substance Reaction Symptoms [...] detail needed. Your Goals/Additional instructions: Source: [facility] POWERCHART Document Id: [id number] Miscellaneous - Karen Steinberg M.D. - 03/25/2014 10:54 PM CDT Ambulatory Discharge Medication List [address] [id number] Visit Information Name: KEILY NG [facility] Number: [id number] Visit Date: 03/25/2014 22:54:28 Attending Provider: KAREN BALTAZAR MD Primary Care Provider: KAREN BALTAZAR MD KEILY GN has been given the following list of medications: Your Medications It is important to take your medications as directed. Use a pill box or chart to help remind you to take your medications. Please let your doctor or nurse know if you have problems taking your medications. Medication/Strength How to Take Indications/Special Instructions/Comments/Notes for Patient Medication Changes/Routing *dexamethasone (dexamethasone 1 mg oral tablet) See Instructions 1 tab(s) PO at 11 pm *norgestimate-ethinyl estradiol (TriNessa oral tablet) 1 Tablet(s), Oral, once a day *spironolactone (spironolactone 25 mg oral tablet) 1 Tablet(s), Oral, once a day *venlafaxine (Effexor XR 37.5 mg oral capsule, extended release) 1 cap, Oral, once a day * You have let us know that you are not taking this medication as listed. Please talk with your primary care provider or the health care provider who prescribed the medication as soon as possible. Stop Taking the Following Medications: Medication list as of 03-25-14 22:54 Attention: If you have any medications at home that are not on this list, DO NOT take them until youcontact your provider for clarification. Give a copy of your medication list to your primary care provider. Update your medication list any time medications or doses are changed and carry your medication list at all times in case of emergency. Electronically Signed By: KAREN BALTAZAR MD Signed On:25-MAR-2014 22:51:39 Additional Information: Source: [facility] POWERCHART Document Id: [id number] Miscellaneous - Pretty Shaver, L.P.N. - 03/25/2014 2:32 PM CDT Adult Engineer Steam Intake/History Adult Engineer Steam Intake/History Entered On: 03/25/2014 14:35 CDT Performed On: 03/25/2014 14:32 CDT by PRETTY SHAVER Intake Chief Complaint : f/u on weight Temperature Core : 37.1 DegC(Converted to: 98.8 DegF) Peripheral Pulse Rate : 84 /min Respiratory Rate : 16 /min Systolic Blood Pressure : 108 mmHg Diastolic Blood Pressure : 68 mmHg NIBP Mean : 81 mmHg BP Location : Left upper extremity Blood Pressure Cuff Size : Large Height : 152 cm(Converted to: 5 ft 0 inch(es), 60 inch(es)) Actual Weight : 72 kg(Converted to: 158 lb 12 oz) Weight Source : Standing scale Dosing Weight Clinic : 72 kg Clinic BSA : 1.74 Body Mass Index : 31.16 kg/m2 PRETTY SHAVER - 03/25/2014 14:32 CDT General Info Information Given By : Patient Languages : Armenian PRETTY SHAVER [place] - 03/25/2014 14:32 CDT Subjective Pain Symptoms : Yes TATYANAWADE PRETTY Mcpherson - 03/25/2014 14:32 CDT Pain Pain Assessment Grid Pain 1 Location : Head [place] PRETTY Khalil 03/25/2014 14:32 CDT Dependent Habits Tobacco Use/Currently Using : Yes Exposure to Tobacco Smoke : Patient smokes Smoking Status : Current some day smoker TATYANAWADE PRETTY Khalil 03/25/2014 14:32 CDT Tobacco Use Grid Type : Cigarettes Cigarette Use Packs/Day : 0.3 [place] 03/25/2014 14:32 CDT Caffeine Use Grid Caffeine Use : None PRETTY SHAVER 03/25/2014 14:32 CDT Recreational Drug Use Grid Drug Use : None ABDIELPRETTY IZAGUIRRE 03/25/2014 14:32 CDT Source: [employer] Document Id: [id number] CDT!40 documented in this encounter Plan of Treatment Upcoming Encounters Date Type Specialty Care Team Description 08/30/2022 Clinical Communication Admitting/Central Scheduling 09/02/2022 Comprehensive Visit Endocrinology Ricardo Winkler APRN, C.N.P., D.N.P. [address] [place] [phone] documented as of this encounter Visit Diagnoses Not on filedocumented in this encounter Additional Health Concerns Assessment Noted Time PHQ-9 Depression Total Score: 22 10/04/2013 2:31 PM CS T documented as of this encounter
--- OUTSIDE RECORDS SUMMARY | 2022-08-16 21:34 | XMS_ITS | Encounter Summary ---
:1985 Author Organization [facility] Address [address] [place] [address] Care Team Providers Name Role Phone Unavailable Primary Care Provider Unavailable Encounter Details Date Type Department Care Team Description 03/23/2014 Hospital Encounter HX [facility] Karen Leon M.D. [address] [phone] (Wo rk) Social History [...] do you attend muslim or Never 2021 gnosticism services? Do you [...] documented as of this encounter Miscellaneous Notes Miscellaneous - Karen Steinberg M.D. - 04/09/2014 12:32 AM CDT Custom Result Letter 09 Apr 2014 [id number] Dear SAMUEL NG, Labs are all normal. Result Name Current Result Previous Result Normal Range Hgb (g/dL) (L) 11.6 03/23/2014 12.4 03/18/2014 12.0 - 15.5 Hct (%) 35.9 03/23/2014 37.9 03/18/2014 34.9 - 44.5 WBC (x10(9)/L) (H) 13.4 03/23/2014 (H) 21.4 03/18/2014 3.4 - 10.5 RBC (x10(12)/L) (L) 3.73 03/23/2014 3.99 03/18/2014 3.90 - 5.03 MCV (fL) 96.2 03/23/2014 95.0 03/18/2014 82.0 - 98.0 RDW (%) 13.8 03/23/2014 13.8 03/18/2014 11.9 - 15.5 Platelet (x10(9)/L) 345 03/23/2014 396 03/18/2014 150 - 450 Neutro % (%) 58.7 03/23/2014 (H) 83.7 03/18/2014 34.0 - 71.1 Lymph % (%) 27.0 03/23/2014 (L) 11.2 03/18/2014 19.3 - 51.7 [place] % (%) 9.2 03/23/2014 (L) 4.0 03/18/2014 4.7 - 12.5 Eos % (%) 4.9 03/23/2014 0.9 03/18/2014 0.7 - 5.8 Baso % (%) 0.2 03/23/2014 0.2 03/18/2014 0.1 - 1.2 Neutro Absolute (10(9)/L) (H) 7.86 03/23/2014 (H) 17.92 03/18/2014 1.70 - 7.00 Lymph Absolute (x10(9)/L) (H) 3.61 03/23/2014 2.39 03/18/2014 0.90 - 2.90 [place] Absolute (x10(9)/L) (H) 1.23 03/23/2014 0.85 03/18/2014 0.30 - 0.90 Eos Absolute (x10(9)/L) (H) 0.65 03/23/2014 0.19 03/18/2014 0.05 - 0.50 [id number] Absolute (x10(9)/L) 0.03 03/23/2014 0.04 03/18/2014 0.00 - 0.30 Differential? Auto 03/23/2014 Auto 03/18/2014 U24 Cortisol-Garcia 15 03/22/2014 3.5-45 - TV Cortisol-Garcia (mL) 1,100 03/22/2014 Hrs Cortisol-Garcia (HR) 24 03/22/2014 Sincerely, KAREN REYES [address] [place] [address] Electronic Signature Electronically Signed By: KAREN REYES MD On: 09 Apr 2014 This document has images extracted. Source: [employer] [facility] POWERCHART Document Id: [id number] Electronically signed by Conversion, [facility] Anesthesia Technician [id number] at 04/21/2017 9:05 PM CDT Telephone Encounter - Conversion, Historical Provider Ser - 03/23/2014 11:01 AM CDT Phone Message Document Contains Addenda Addendum by LEORA MALONEY LPN on 24 Mar 2014 15:57:42 CDT pt notified Addendum by KAREN REEYS MD on 24 Mar 2014 13:24:21 CDT From: KAREN REYES MD To: LEORA MALONEY LPN; Sent: 03/24/2014 13:24:21 CDT Subject: RE: Phone Message There is no evidence for a cortisol problem. she had a normal response to the pill taken the night before. The WBC was better, still not completely normal. There is nothing to do except test again in 2weeks. From: LEORA MALONEY LPN To: KAREN REYES MD; LEORA MALONEY LPN; Sent: 03/23/2014 11:01:33 CDT Subject: Phone Message Caller is: ( ) Patient ( ) Mother ( ) Father ( ) Spouse ( ) Daughter ( ) Son ( ) Pharmacy ( ) Other: Physician: Patient MRN #: Reason for Call: pt stopped by office and stated she had labs repeated today. wanted copies of test results. i was not able to view the 24 hr urine results, she said she was called and told they were abnormal and wanted more information. advised will call back when have more information on results. Message: Advice/Action: Source used: ( ) Verbalizes [...] back cell phone number ( ) Source: [employer] [facility] POWERCHART Document Id: [id number] documented in this encounter Plan of Treatment Upcoming Encounters Date Type Specialty Care Team Description 08/30/2022 Clinical Communication Admitting/Central Scheduling 09/02/2022 Comprehensive Visit Endocrinology Ricardo Winkler APRN, C.N.P., D.N.P. [address] [place] [phone] documented as of this encounter Procedures Procedure Name Priority Date/Time Associated Diagnosis Comme nts AUTOMATED Routine 03/23/2014 10:29 AM Results for this DIFFERENTIAL, B CDT procedure ar e in the results section. CBC WITH Routine 03/23/2014 10:29 AM Results for this DIFFERENTIAL, B CDT procedure ar e in the results section. documented in this encounter Results (ABNORMAL) Automated Differential (03/23/2014 10:29 AM CDT) [facility] Method Time Signature Neutro % 58.7 34.0 - POWERCHART 71.1 Lymphocytes % 27.0 19.3 - POWERCHART 51.7 HX [place] % 9.2 4.7 - 12.5 POWERCHART HX Eos % 4.9 0.7 - 5.8 POWERCHART HX Baso % 0.2 0.1 - 1.2 POWERCHART Absolute 7.86 (H) 1.70 - POWERCHART Neutrophils 7.00 109L Lymphocytes 3.61 (H) 0.90 - POWERCHART 2.90 X109L Monocytes 1.23 (H) 0.30 - POWERCHART 0.90 X109L Eosinophils 0.65 (H) 0.05 - POWERCHART 0.50 X109L Absolute 0.03 0.00 - POWERCHART Basophil 0.30 X109L Specimen Anatomical Collection Method Collection Time Receive d Time (Source) Location / / Volume Laterality Blood 03/23/2014 10:29 03/23/2014 AM CDT 10:29 AM CDT Karen Reyes M.D. LAB BLOOD ADD-ON Performing Organization Address City/State/ZIP Code Phon e Number POWERCHART (ABNORMAL) CBC with Differential (03/23/2014 10:29 AM CDT) [facility] [employer] Method Time Signature Leukocytes 13.4 (H) 3.4 - 10.5 POWERCHART X109L Erythrocytes 3.73 (L) 3.90 - POWERCHART 5.03 [id number] Hemoglobin 11.6 (L) 12.0 - POWERCHART 15.5 GDL Hematocrit 35.9 34.9 - POWERCHART 44.5 MCV 96.2 82.0 - POWERCHART 98.0 FL Platelet Count 345 150 - 450 POWERCHART X109L HX RDW 13.8 11.9 - POWERCHART 15.5 HXDifferential? Auto POWERCHART Specimen (Source) Anatomical Collection Method Collection Time Re ceived Time Location / / Volume Laterality Blood 03/23/2014 10:29 AM CDT Karen Reyes M.D. LAB BLOOD ADD-ON Performing Organization Address City/State/ZIP Code Phon e Number POWERCHART documented in this encounter Visit Diagnoses Not on filedocumented in this encounter Additional Health Concerns Assessment Noted Time PHQ-9 Depression Total Score: 22 10/04/2013 2:31 PM CS T documented as of this encounter
--- OUTSIDE RECORDS SUMMARY | 2022-08-16 21:34 | XMS_ITS | Encounter Summary ---
:1985 Author Organization [facility] Address [address] [place] [address] Care Team Providers Name Role Phone Unavailable Primary Care Provider Unavailable Encounter Details Date Type Department Care Team Description 03/17/2014 Hospital Encounter HX [facility] Yarelis Dial i, M.D. [address] [place] [phone] (Wo rk) Social History Tobacco [...] do you attend latter-day or Never 2021 yarsanism services? Do you [...] Sign Reading Time Taken Comments Blood Pressure 110/62 03/17/2014 1:52 PM CDT Pulse 84 03/17/2014 1:52 PM CDT Temperature - - Respiratory Rate 20 03/17/2014 1:52 PM CDT Oxygen Saturation - - Inhaled Oxygen Concentration - - Weight 73.5 kg (162 lb 0.6 oz) 03/17/2014 1:52 PM CDT Height 152 cm (4' 11.84) 03/17/2014 1:52 PM CDT Body Mass Index 31.81 03/17/2014 1:52 PM CDT documented in this encounter Progress Notes Yarelis Steinberg M.D. - 03/17/2014 1:45 PM CDT [id number] CHIEF COMPLAINT/ REASON FOR VISIT Heartburn, weight gain. HISTORY OF PRESENT ILLNESS Samuel is a 28 year old female who presents to the clinic today with heartburn and weight gain. She has been trying to exercise and eat healthier, but continues to gain weight. She has gained 10 poundsover the last week. She reports heartburn daily for the last week and it wakes her up during the night. She denies changes in vision. She reports fatigue and becomes short of breath with exertion. She has headaches approximately every three days. She has regular bowel movements. 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 The patient denies any additional questions or concerns at this time. MEDICATIONS Post-visit Medication Reconciliation Reviewed and are as outlined in the EMR including 1. Dexamethasone 1mg 1 tab at 11pm, prescribed today. ALLERGIES No known allergies. SYSTEMS REVIEW See HPI. PAST MEDICAL/SURGICAL HISTORY 1. Polycystic ovarian syndrome. 2. Depression 3. History of cervical dysplasia. 4. Headache. 5. 5, para 3 PREVENTIVE SERVICES Tobacco use: Yes. VITAL SIGNS HEIGHT: 152 cm WEIGHT: 73.5 kg BMI: 31.81 kg/m2 TEMPERATURE: 36.4 DegC PULSE: 84 /min RESPIRATORY RATE: 20 /min BLOOD PRESSURE: 110 mmHg/62 mmHg PHYSICAL EXAMINATION GENERAL: Patient is alert [...] ABDOMEN: Soft and nontender with no masses. EXTREMITIES: Within normal limits. IMPRESSION/REPORT/PLAN 1. Weight gain: This is likely related to her polycystic ovarian syndrome. Consider Cushings disease. She will complete a 24-hour urine. Dexamethasone is prescribed for cortisol testing. TSH, lipid panel, CMP, and CBC will be obtained. If these studies are negative, will consider metformin for her PCOS. 2. Follow up: The patient will contact the clinic with any new or worsening symptoms. This document serves as a record of services personally performed by Yarelis Reyes MD. It was created on their behalf by Samuel Perea, a trained medical lab assistant. The creation of this record is based on the scribe's personal observations and the provider's statements to them. This document has been matilda cked and approved by the attending provider. Yarelis Reyes M.D./carlo Electronically Signed By: YARELIS REYES MD On: 03/25/2014 01:15 PM Source: [facility] MHSDOLBEYNONRADSYS Document Id: [id number] documented in this encounter Miscellaneous Notes Miscellaneous - Yarelis Steinberg M.D. - 03/17/2014 10:38 PM CDT Ambulatory Patient Summary [address] [place] [id number] Visit Information Name: SAMUEL NG [facility] Number: [id number] Current Date: 03/17/2014 22:38:01 Physicians Attending Provider: YARELIS REYES MD Primary [...] Take Indications/Special Instructions/Comments/Notes for Patient Medication Changes/Routing dexamethasone (dexamethasone 1 mg oral tablet) See Instructions 1 tab(s) PO at 11 pm New Routed to [address] [place] [address] *norgestimate-ethinyl estradiol (TriNessa oral tablet) 1 Tablet(s), Oral, once a day spironolactone (spironolactone 25 mg oral tablet) 1 [...] the Following Medications: Medication list as of 03-17-14 22:38 Attention: If you have any medications at [...] Electronically Signed By: YARELIS REYES MD Signed On:17-MAR-2014 22:37:46 Your Allergies & Intolerances Substance Reaction Symptoms Category Comments No Known Allergies Drug Your Problem List Problem Status Onset Comments Tobacco Use Disorder Active 04/02/2010 Bipolar disorder, depressed Active Polycystic ovarian disease Active Personal History of Cervical Dysplasia Active 10/03/2006 Depressive disorder, major, recurrent episode Active Your Upcoming Appointments Date Time Location Reason Provider 03/18/2014 09:15 [facility] Lab 03/18/2014 09:15 [facility] Lab Attention: Contact your local Clinic if further appointment detail needed. Your Goals/Additional instructions: Source: [facility] POWERCHART Document Id: [id number] Miscellaneous - Yarelis Steinberg M.D. - 03/17/2014 10:38 PM CDT Ambulatory Discharge Medication List [address] [id number] Visit Information Name: SAMUEL NG [facility] Number: [id number] Visit Date: 03/17/2014 22:37:59 Attending Provider: YARELIS REYES MD Primary Care [...] Take Indications/Special Instructions/Comments/Notes for Patient Medication Changes/Routing dexamethasone (dexamethasone 1 mg oral tablet) See Instructions 1 tab(s) PO at 11 pm New Routed to [facility] [address] [place] [address] *norgestimate-ethinyl estradiol (TriNessa oral tablet) 1 Tablet(s), Oral, once a day spironolactone (spironolactone 25 mg oral tablet) 1 [...] the Following Medications: Medication list as of 03-17-14 22:38 Attention: If you have any medications at [...] Electronically Signed By: YARELIS REYES MD Signed On:17-MAR-2014 22:37:46 Additional Information: Source: [facility] [employer] Document Id: [id number] Miscellaneous - Yarelis Steinberg M.D. - 03/17/2014 2:46 PM CDT Samuel Ng was seen in clinic today. She will have a lab appointment in the am of 03-18-14 and 03-21-14. Electronically Signed By: YARELIS REYES MD On: 03/17/2014 02:47 PM Source: [facility] Document Id: [id number] Miscellaneous - Conversion, Historical Provider Ser - 03/17/2014 1:52 PM CDT Adult Market Reporter Intake/History Adult Market Reporter Intake/History Entered On: 03/17/2014 13:53 CDT Performed On: 03/17/2014 13:52 CDT by LEORA MALONEY LPN Intake Chief Complaint : heartburn, weight gain, and acne Temperature Core : 36.4 DegC(Converted to: 97.5 DegF) (LOW) Peripheral Pulse Rate : 84 /min Respiratory Rate : 20 /min Systolic Blood Pressure : 110 mmHg Diastolic Blood Pressure : 62 mmHg NIBP Mean : 78 mmHg BP Location : Right upper extremity Blood Pressure Cuff Size : Regular Height : 152 cm(Converted to: 5 ft 0 inch(es), 60 inch(es)) Actual Weight : 73.5 kg(Converted to: 162 lb 1 oz) Dosing Weight Clinic : 73.5 kg Clinic BSA : 1.76 Body Mass Index : 31.81 kg/m2 LEORA MALONEY [facility] - 03/17/2014 13:52 CDT General Info Information Given By : Patient Languages : Lebanese LEORA MALONEY [facility] - 03/17/2014 13:52 CDT Subjective Pain Symptoms : No LEORA MALONEY [facility] - 03/17/2014 13:52 CDT Dependent Habits Tobacco Use/Currently Using : Yes Tobacco Use/Advised to Quit : Yes Exposure to Tobacco Smoke : Patient smokes Smoking Status : Current every day smoker LEORA MALONEY [facility] - 03/17/2014 13:52 CDT Tobacco Use Grid Type : Cigarettes Cigarette Use Packs/Day : 0.3 LEORA MALONEY [facility] - 03/17/2014 13:52 CDT Caffeine Use Grid Caffeine Use : None LEORA MALONEY [facility] - 03/17/2014 13:52 CDT Recreational Drug Use Grid Drug Use : None LEORA MALONEY [facility] - 03/17/2014 13:52 CDT Source: [facility] Document Id: [id number]!36 documented in this encounter Plan of Treatment Upcoming Encounters Date Type Specialty Care Team Description 08/30/2022 Clinical Communication Admitting/Central Scheduling 09/02/2022 Comprehensive Visit Endocrinology Ricardo Winkler APRN, C.N.P., D.N.P. [address] [place] [phone] documented as of this encounter Procedures Procedure Name Priority Date/Time Associated Diagnosis Comme nts TEST, U Routine 03/18/2014 10:08 AM Res ults for this CDT procedure are i n the results section. documented in this encounter Results Test, Qualitative, Urine (03/18/2014 10:08 AM CDT) Patholo gist Method Time Signature HXBeta-hCG Negative POWERCHART Qualitative Urine Specimen (Source) Anatomical Collection Method Collection Time Re ceived Time Location / / Volume Laterality Urine 03/18/2014 10:08 AM CDT Yarelis Reyes M.D. LAB URINE ORDERABLES Performing Organization Address City/State/ZIP Code Phon e Number POWERCHART documented in this encounter Visit Diagnoses Not on filedocumented in this encounter Additional Health Concerns Assessment Noted Time PHQ-9 Depression Total Score: 22 10/04/2013 2:31 PM CS T documented as of this encounter
--- OUTSIDE RECORDS SUMMARY | 2022-08-16 21:34 | XMS_ITS | Encounter Summary ---
:1985 Author Organization [facility] Address [address] [place] [address] Care Team Providers Name Role Phone Unavailable Primary Care Provider Unavailable Encounter Details Date Type Department Care Team Description 10/05/2014 Hospital Encounter HX [facility] Narinder De [...] do you attend taoism or Never 2021 druze services? Do you [...] Reading Time Taken Comments Blood Pressure 84/48 10/05/2014 2:32 PM ADJUSTER AND INSPECTOR Pulse - - Temperature - - Respiratory Rate - - Oxygen Saturation - - Inhaled Oxygen Concentration - - Weight 71.3 kg (157 lb 3 oz) 10/05/2014 2:32 PM ADJUSTER AND INSPECTOR Height 152 cm (4' 11.84) 10/05/2014 2:32 PM ADJUSTER AND INSPECTOR Body Mass Index 30.86 10/05/2014 2:32 PM ADJUSTER AND INSPECTOR documented in this encounter Progress Notes Narinder Enriquez M.D. - 10/05/2014 2:28 PM CST [id number] CHIEF COMPLAINT/REASON FOR VISIT OB visit. HISTORY OF PRESENT ILLNESS This patient is a 28-year-old G6, P3-0-2-3 female with LMP of 05/18/2014 and EDC of 02/22/2015 at 20and 1/7 weeks. She presents for OB visit. She is doing well. She has no pain, cramping, tenderness or discomfort. No leaking of fluid or vaginal bleeding. She reports positive movement. No vaginal itching, irritation, or discharge. No difficulty urinating. ALLERGIES No known drug [...] 2005. SOCIAL HISTORY The patient quit smoking 07/28/2014. She denies alcohol or drug use. No history of STD or PID. No history of abuse. VITAL SIGNS Weight 71.3 kg, height 152 cm. Blood pressure 84/48, pulse 70. PHYSICAL EXAMINATION GENERAL: Well-developed, well-nourished gravid female in no apparent distress. Alert oriented x3. Normal affect. ABDOMEN: Gravid, soft, nontender. Positive bowel sounds. Fundal height at umbilicus. Positive Doptones are auscultated 152 beats per minute. EXTREMITIES: No clubbing, cyanosis, or edema. Nontender bilaterally. GENITALIA: Deferred. IMPRESSION/REPORT/PLAN 1. Intrauterine at 20 and 1/7 weeks. Positive cardiac activity. 2. History of tobacco abuse. Patient quit [id number]/28/2014. PLAN: 1. Follow up in 2 weeks for OB visit as scheduled or be seen sooner as needed. 2. Plan OB ultrasound for survey in 2 weeks as scheduled or be seen sooner as needed. 3. I gave the patient a prescription for vitamins with refills at her request. 4. Routine OB precautions, recommendations, instructions are reviewed with patient including movement and kick counts. Narinder Enriquez M.D./cristiano Electronically Signed By: NARINDER ENRIQUEZ MD On: 10/07/2014 07:29 AM Source: [facility] MHSDOLBEYNONRADSYS Document Id: [id number] STER AND INSPECTOR documented in this encounter Miscellaneous Notes Miscellaneous - Narinder Enriquez M.D. - 10/05/2014 2:52 PM CST Ambulatory Patient Summary [address] [id number] Visit Information Name: SAMUEL NG [facility] Number: [id number] Current Date: 10/05/2014 14:52:24 Physicians Attending Provider: NARINDER ENRIQUEZ MD Primary [...] tablet) 1 Tablet(s), Oral, once a day multivitamin, ( Multivitamins with Folic Acid 1 mg oral capsule) 1 cap, Oral, once a day Routed to [facility] [address] [place] [address] Stop Taking the Following Medications: Medication list as of 10-05-14 14:52 Attention: If you have any medications at [...] Electronically Signed By: NARINDER ENRIQUEZ MD Signed On:05-OCT-2014 14:52:16 Your Allergies & Intolerances Substance Reaction Symptoms [...] Your Upcoming Appointments Date Time Location Provider 10/17/2014 11:00 [facility] [employer] RELATIONS COORDINATOR Narinder Enriquez MD Attention: Contact your local Clinic if further appointment detail needed. Your Goals/Additional instructions: Source: [facility] POWERCHART Document Id: [id number] STER AND INSPECTOR Miscellaneous - Narinder Enriquez M.D. - 10/05/2014 2:52 PM CST Ambulatory Discharge Medication List [address] [id number] Visit Information Name: SAMUEL NG [facility] Number: [id number] Visit Date: 10/05/2014 14:52:23 Attending Provider: NARINDER ENRIQUEZ MD Primary Care [...] tablet) 1 Tablet(s), Oral, once a day multivitamin, ( Multivitamins with Folic Acid 1 mg oral capsule) 1 cap, Oral, once a day Routed to [facility] [address] [place] [address] Stop Taking the Following Medications: Medication list as of 10-05-14 14:52 Attention: If you have any medications at [...] Electronically Signed By: NARINDER ENRIQUEZ MD Signed On:05-OCT-2014 14:52:16 Additional Information: Source: [facility] POWERCHART Document Id: [id number] STER AND INSPECTOR Miscellaneous - Susana Morgan, L.P.N. - 10/05/2014 2:32 PM CST Adult Rehabilitation Services Aide Intake/History Adult Rehabilitation Services Aide Intake/History Entered On: 10/05/2014 14:34 ADJUSTER AND INSPECTOR Performed On: 10/05/2014 14:32 ADJUSTER AND INSPECTOR by SUSANA MORGAN LPN Intake Chief Complaint : Ob visit 21 1/7 weeks LMP Date : 05/18/14 Systolic Blood Pressure : 84 mmHg (<LLOW) Diastolic Blood Pressure : 48 mmHg (<LLOW) NIBP Mean : 60 mmHg BP Location : Left upper extremity Blood Pressure Cuff Size : Regular Height : 152 cm(Converted to: 5 ft 0 inch(es), 60 inch(es)) Actual Weight : 71.3 kg(Converted to: 157 lb 3 oz) Weight Source : Standing scale Dosing Weight Clinic : 71.3 kg Clinic BSA : 1.74 Body Mass Index : 30.86 kg/m2 SUSANA MORGAN [facility] - 10/05/2014 14:32 ADJUSTER AND INSPECTOR General Info Information Given By : Patient Languages : Romansh Is Patient Female and 13-50 no hysterectomy : Yes Status : Confirmed positive Are you ? : No SUSANA MORGAN [facility] - 10/05/2014 14:32 ADJUSTER AND INSPECTOR Subjective Pain Symptoms : No EDDIESUSANA [facility] 10/05/2014 14:32 ADJUSTER AND INSPECTOR Dependent Habits Tobacco Use/Currently Using : Yes Exposure to Tobacco Smoke : Patient smokes Smoking Status : Current every day smoker SUSANA MORGAN [facility] - 10/05/2014 14:32 ADJUSTER AND INSPECTOR Tobacco Use Grid Type : Cigarettes Cigarette Use Packs/Day : 0.2 EDDIE SUSANA Tesfaye [facility] 10/05/2014 14:32 ADJUSTER AND INSPECTOR Caffeine Use Grid Caffeine Use : None EDDIESUSANA Tesfaye [facility] 10/05/2014 14:32 ADJUSTER AND INSPECTOR Recreational Drug Use Grid Drug Use : None EDDEI SUSANA B [facility] 10/05/2014 14:32 ADJUSTER AND INSPECTOR ID Screen Drug Resistant Organism : No Travel Within Last 21 Days : No EDDIESUSANA [facility] 10/05/2014 14:32 ADJUSTER AND INSPECTOR Source: [facility] POWERCHART Document Id: [id number] ADJUSTER AND INSPECTOR!40 STER AND INSPECTOR documented in this encounter Plan of Treatment Upcoming Encounters Date Type Specialty Care Team Description 08/30/2022 Clinical Communication Admitting/Central Scheduling 09/02/2022 Comprehensive Visit Endocrinology Ricardo Winkler APRN, C.N.P., D.N.P. [address] [place] [phone] documented as of this encounter Visit Diagnoses Not on filedocumented in this encounter Additional Health Concerns Assessment Noted Time PHQ-9 Depression Total Score: 22 10/04/2013 2:31 PM CS T documented as of this encounter
--- OUTSIDE RECORDS SUMMARY | 2022-08-16 21:34 | XMS_ITS | Encounter Summary ---
:1985 Author Organization [facility] Address [address] [place] [address] Care Team Providers Name Role Phone Unavailable Primary Care Provider Unavailable Encounter Details Date Type Department Care Team Description 06/17/2014 Hospital Encounter HX NO MAPPING Yarelis Reyes M.D. [address] [place], [place] [phone] (Wo rk) Social History [...] do you attend rastafarian or Never 2021 sabianist services? Do you [...] Ricardo Winkler, SILVIO, C.N.P., D.N.P. [address] [place] [address] documented as of this encounter Visit Diagnoses Not on filedocumented in this encounter Additional Health Concerns Assessment Noted Time PHQ-9 Depression Total Score: 22 10/04/2013 2:31 PM CS T documented as of this encounter
--- OUTSIDE RECORDS SUMMARY | 2022-08-16 21:34 | XMS_ITS | Encounter Summary ---
:1985 Author Organization [facility] Address [address] [place] [address] Care Team Providers Name Role Phone Unavailable Primary Care Provider Unavailable Encounter Details Date Type Department Care Team Description 07/22/2014 Hospital Encounter HX [facility] Narinder De [...] do you attend orthodoxy or Never 2021 restorationist services? Do you [...] Reading Time Taken Comments Blood Pressure 98/62 07/22/2014 1:24 PM CDT Pulse - - Temperature - - Respiratory Rate - - Oxygen Saturation - - Inhaled Oxygen Concentration - - Weight 73.3 kg (161 lb 9.6 oz) 07/22/2014 1:24 PM CDT Height 152 cm (4' 11.84) 07/22/2014 1:24 PM CDT Body Mass Index 31.73 07/22/2014 1:24 PM CDT documented in this encounter Progress Notes Narinder Enriquez M.D. - 07/22/2014 1:19 PM CDT [id number] CHIEF COMPLAINT/REASON FOR VISIT Routine OB visit. HISTORY OF PRESENT ILLNESS This patient is a 28-year-old, G6, P3-0-2-3 female with LMP of 05/18/2014 and an EDC of 02/22/2015, this makes her 9 weeks and 2 days. The patient presents for OB visit and OB ultrasound. She is doing well. Her morning nausea symptoms have resolved. No emesis. No breast tenderness. No pain, cramping, tenderness or discomfort. No leaking of fluid. No vaginal bleeding. No difficulty urinating. No change in bowel habits. No headaches or vision changes. No depression symptoms. ALLERGIES No known drug allergies. MEDICATIONS vitamins. PAST MEDICAL/SURGICAL HISTORY PAST MEDICAL HISTORY: 1. Tobacco abuse. One-half pack per day. 2. History of bipolar disorder. 3. History of depression. 4. History of cervical dysplasia, 2005. 5. Polycystic ovarian syndrome. PAST SURGICAL HISTORY: Laparoscopic appendectomy, 2012. PAST OBSTETRICAL HISTORY: 1. Vaginal delivery, 02/10/2002, 38 weeks, female , 6 pounds 0 ounces. 2. Vaginal delivery, 08/16/2008, 38 weeks, female , 6 pounds 0 ounces. Complicated by labor. 3. Vaginal delivery, 11/06/2010, 36-1/7 week, male , 5 pounds 3 ounces. 4. Miscarriage, 2004, 11 weeks gestation. 5. Miscarriage, 2006, 13 weeks gestation. SOCIAL HISTORY The patient smokes tobacco, less than 1/2 pack per day. She denies alcohol or drug use. No history of STD or PID. She has a history of cervical dysplasia in 2005 and normal followup Pap smear. No history of abuse. VITAL SIGNS Weight 73.3 kg, height 152 cm, blood pressure 98/62, pulse 70. PHYSICAL EXAMINATION GENERAL: Well-developed, well-nourished gravid female in no apparent distress. Alert and oriented times 3. Normal affect. ABDOMEN: Gravid, soft and nontender. Fundal height not palpated. Negative Doptones are auscultated. EXTREMITIES: No edema or tenderness. GENITAL: Deferred. DIAGNOSTICS LABORATORY: 06/29/2014, chlamydia negative, gonorrhea negative. PROCEDURE: OB ultrasound is performed. Please see separate form for details. IMPRESSION/REPORT/PLAN 1. Intrauterine at 9-2/7 weeks. Positive cardiac activity. 2. Tobacco abuse, less 1/2 pack per day. 3. History of polycystic ovarian syndrome. Patient off medication and asymptomatic. 4. History of cervical dysplasia. 5. History of depression, currently asymptomatic off medication. PLAN: 1. I reviewed the OB ultrasound results with the patient showing intrauterine at 8 weeks and 5 days which is consistent with dates. Positive cardiac activity seen. Yolk sac is seen. Cervix islong, thick and closed. No adnexal masses or free fluid is seen. No myometrial masses. 2. I recommend the patient follow back up in 2 to 3 weeks for first OB history and physical examination, including thyroid check, pelvic exam and Pap smear, or be seen sooner as needed. 3. New OB labs are ordered. The patient will have these drawn. 4. Routine OB precautions, recommendations, and instructions are reviewed with the patient, including movement and kick counts. 5. Miscarriage precautions are reviewed with the patient. 6. Routine depression precautions in are reviewed with the patient. I spent 25 minutes [id number] time with the patient, with over 50% of that time spent in counseling. Narinder Enriquez M.D./cristiano Electronically Signed By: NARINDER ENRIQUEZ MD On: 07/22/2014 04:21 PM Source: [facility] [id number] Document Id: [id number] documented in this encounter Miscellaneous Notes Miscellaneous - Narinder Enriquez M.D. - 07/22/2014 1:46 PM CDT Ambulatory Patient Summary [address] [id number] Visit Information Name: KEILY NG [facility] Number: [id number] Current Date: 07/22/2014 13:46:26 Physicians Attending Provider: NARINDER ENRIQUEZ MD Primary Care Provider: KAREN REYES MD NGANGELKEILYCRISTHIAN TURPIN has been given the following list of [...] the Following Medications: Medication list as of 07-22-14 13:46 Attention: If you have any medications at [...] Electronically Signed By: NARINDER ENRIQUEZ MD Signed On:22-JUL-2014 13:46:18 Your Allergies & Intolerances Substance Reaction Symptoms Category Comments No Known Allergies Drug Your Problem List Problem Status Onset Comments Tobacco Use Disorder Active 04/02/2010 Bipolar disorder, depressed Active Polycystic ovarian disease Active Personal History of Cervical Dysplasia Active 10/03/2006 Depressive disorder, major, recurrent episode Active Normal Preg Not First 1st Preg Active 06/29/2014 Your Upcoming Appointments Date Time Location Provider 08/05/2014 09:00 [facility] Narinder Enriquez MD Attention: Contact your local Clinic if further appointment detail needed. Your Goals/Additional instructions: Source: [facility] POWERCHART Document Id: [id number] Nikhil - Narinder Enriquez M.D. - 07/22/2014 1:46 PM CDT Ambulatory Discharge Medication List [address] [id number] Visit Information Name: ANGEL NGCRISTHIAN VELÁSQUEZN [facility] Number: [id number] Visit Date: 07/22/2014 13:46:25 Attending Provider: NARINDER ENRIQUEZ MD Primary Care [...] the Following Medications: Medication list as of 07-22-14 13:46 Attention: If you have any medications at [...] Electronically Signed By: NARINDER ENRIQUEZ MD Signed On:22-JUL-2014 13:46:18 Additional Information: Source: [facility] POWERCHART Document Id: [id number] Nikhil - Yulisa Manzo L.P.N. - 07/22/2014 1:24 PM CDT Adult Marble Polisher Intake/History Adult Marble Polisher Intake/History Entered On: 07/22/2014 13:25 CDT Performed On: 07/22/2014 13:24 CDT by YULISA MANZO LPN Intake Chief Complaint : OB visit 9 3/7 weeks LMP Date : 05/18/14 Systolic Blood Pressure : 98 mmHg Diastolic Blood Pressure : 62 mmHg NIBP Mean : 74 mmHg BP Location : Left upper extremity Blood Pressure Cuff Size : Regular Height : 152 cm(Converted to: 5 ft 0 inch(es), 60 inch(es)) Actual Weight : 73.3 kg(Converted to: 161 lb 10 oz) Weight Source : Standing scale Dosing Weight Clinic : 73.3 kg Clinic BSA : 1.76 Body Mass Index : 31.73 kg/m2 YULISA MANZO LPN - 07/22/2014 13:24 CDT General Info Information Given By : Patient Languages : Belgian Is Patient Female and 13-50 no hysterectomy : Yes Status : Confirmed positive Are you ? : No YULISA MANZO LPN - 07/22/2014 13:24 CDT Subjective Pain Symptoms : No YULISA MANZO LPN - 07/22/2014 13:24 CDT Dependent Habits Tobacco Use/Currently Using : Yes Exposure to Tobacco Smoke : Patient smokes Smoking Status : Current every day smoker YULISA MANZO LPN - 07/22/2014 13:24 CDT Tobacco Use Grid Type : Cigarettes Cigarette Use Packs/Day : 0.2 YULISA MANZO LPN - 07/22/2014 13:24 CDT Caffeine Use Grid Caffeine Use : None YULISA MANZO LPN - 07/22/2014 13:24 CDT Recreational Drug Use Grid Drug Use : None YULISA MANZO LPN - 07/22/2014 13:24 CDT Source: [facility] POWERCHART Document Id: [id number] CDT!37 documented in this encounter Plan of Treatment Upcoming Encounters Date Type Specialty Care Team Description 08/30/2022 Clinical Communication Admitting/Central Scheduling 09/02/2022 Comprehensive Visit Endocrinology Ricardo Winkler APRN, C.N.P., D.N.P. [address] [place] [phone] documented as of this encounter Visit Diagnoses Not on filedocumented in this encounter Additional Health Concerns Assessment Noted Time PHQ-9 Depression Total Score: 22 10/04/2013 2:31 PM CS T documented as of this encounter
--- OUTSIDE RECORDS SUMMARY | 2022-08-16 21:34 | XMS_ITS | Encounter Summary ---
:1985 Author Organization [facility] Address [address] [place] [address] Care Team Providers Name Role Phone Unavailable Primary Care Provider Unavailable Encounter Details Date Type Department Care Team Description 11/04/2013 Hospital Encounter HX [facility] FAMILY[facility] Kulwinder Tang P.A.-C. [address] [place] [phone] (Wo rk) Social History Tobacco [...] do you attend buddhism or Never 2021 methodist services? Do you belong to any clubs or No 01/25/2022 organizations such as buddhism groups, unions, fraternal or athletic groups, or [...] Sign Reading Time Taken Comments Blood Pressure 108/70 11/04/2013 1:10 PM ETCHER PHOTOENGRAVING Pulse 88 11/04/2013 1:10 PM ETCHER PHOTOENGRAVING Temperature - - Respiratory Rate 16 11/04/2013 1:10 PM ETCHER PHOTOENGRAVING Oxygen Saturation - - Inhaled Oxygen Concentration - - Weight 65 kg (143 lb 4.8 oz) 11/04/2013 1:10 PM ETCHER PHOTOENGRAVING Height 152 cm (4' 11.84) 11/04/2013 1:10 PM ETCHER PHOTOENGRAVING Body Mass Index 28.13 11/04/2013 1:10 PM ETCHER PHOTOENGRAVING documented in this encounter Progress Notes Svetlana Tang P.A.-C. - 11/04/2013 12:46 PM CST [id number] CHIEF COMPLAINT/REASON FOR VISIT Headache and depression. HISTORY OF PRESENT ILLNESS Samuel has a longstanding history of depression and this has been a problem ever since she was little. She says she thinks she has had problems with attention deficit disorder but has never been treated for it. She has been treated with multiple antidepressants over the years and we discussed this today. When I saw last time we had tried her on Wellbutrin. She said she did not like the way it made her feel so she discontinued it. She has not had any thoughts of harming herself but she would really like get her symptoms under better control. She has ongoing headache that she attributes primarily to her depression and anxiety. She says when her depression gets worse her headache gets worse. She has been exercising. She is going to a gym and says she does 20 minutes of cardiovascular exercise but says that her symptoms still persist. She also recently pierced her belly button and has some redness around this. She has been trying to keep a clean but it caused her discomfort. She wants me to take a look at this today as well. VITAL SIGNS Noted in the EMR. GENERAL: She appears in no acute distress. Her heart is regular rate rhythm, no murmurs. LUNGS: Clear to auscultation. On examination of her abdomen she has a piercing in her umbilicus. There is a small amount of cellulitis on the inferior aspect of her piercing. There is no exudate present at this time. Examination of her eyes, pupils are equal and round. IMPRESSION/REPORT/PLAN 1. Depression and anxiety. Her PHQ-9 score she says would not be any different today than it was last time so we did not fill it out again. She has no thoughts of harming herself. She has failed Wellbutrin. She has been on Paxil, Prozac, Zoloft and citalopram she says , but has never been on medicinessuch as Effexor that also will adjust the levels of norepinephrine. I think it would be worthwhile to give this a try and so we are going to start on a small dose Effexor at 37.5 mg. She does wonder about attention deficit disorder and I told her that I would not prescribe this for her and it would need to be evaluated by a psychiatrist. She is in agreement with this plan. I gave the phone [facility] for [facility]. 2. Headache. I do think her headache symptoms are likely secondary to her anxiety, particularly since it gets worse when her anxiety gets worse . We are going to continue to try to get better controlled of her anxiety and her headache will hopefully follow suit. If anything worsen she will let us know. 3. Cellulitis. She has an acute infection of her umbilicus. I am not going to put her on oral antibiotics. It does seem to be getting better. She has been using alcohol and some dial soap I would like to her to continue with this practice as well as using an antibiotic ointment. If her symptoms worsenor do not completely resolve within the next 5 to 7 days she will let us know. Otherwise follow up as needed. Svetlana Tang PA-C/tu Electronically Signed By: SVETLANA TANG PA-C On: 11/05/2013 01:25 PM Source: [facility] MHSDOLBEYNONRADSYS Document Id: [id number] ER PHOTOENGRAVING documented in this encounter Miscellaneous Notes Miscellaneous - Svetlana Tang P.A.-C. - 11/04/2013 1:54 PM CST Ambulatory Patient Summary [address] [place] [address] Visit Information Name: SAMUEL NG [facility] Number: [id number] Current Date: 11/04/2013 13:54:45 Physicians Attending Provider: SVETLANA TANG PA-C Primary Care Provider: KAREN REYES MD SAMUEL [...] Take Indications/Special Instructions/Comments/Notes for Patient Medication Changes/Routing *norelgestromin-ethinyl estradiol (Ortho Evra 150 mcg-20 mcg/24 hr transdermal film, extended release) 1 patch, Transdermal, every week (apply a new patch weekly for 3 weeks, remove for 1 week, then repeat cycle) venlafaxine (Effexor XR 37.5 mg oral capsule, extended release) 1 cap, Oral, once a day New Routed to [facility] [address] [place] [address] * You have let us know that you are not taking this medication as listed. Please talk with your primary care provider or the health care provider who prescribed the medication as soon as possible. Stop Taking the Following Medications: Medication list as of 11-04-13 13:54 Attention: If you have any medications at [...] appointment detail needed. Your Goals/Additional instructions: Source: [facility] POWERCHART Document Id: [id number] ER PHOTOENGRAVING Miscellaneous - Svetlana Tang P.A.-C. - 11/04/2013 1:54 PM CST Ambulatory Depart Summary [address] [id number] Visit Information Name: SAMUEL NG [facility] Number: [id number] Visit Date: 11/04/2013 13:54:44 Attending Provider: SVETLANA TANG PA-C Primary Care Provider: KAREN REYES MD SAMUEL [...] Take Indications/Special Instructions/Comments/Notes for Patient Medication Changes/Routing *norelgestromin-ethinyl estradiol (Ortho Evra 150 mcg-20 mcg/24 hr transdermal film, extended release) 1 patch, Transdermal, every week (apply a new patch weekly for 3 weeks, remove for 1 week, then repeat cycle) venlafaxine (Effexor XR 37.5 mg oral capsule, extended release) 1 cap, Oral, once a day [facility] [address] [place] [address] * You have let us know that you are not taking this medication as listed. Please talk with your primary care provider or the health care provider who prescribed the medication as soon as possible. Stop Taking the Following Medications: Medication list as of 11-04-13 13:54 Attention: If you have any medications at home that are not on this list, DO NOT take them until youcontact your provider for clarification. Give a copy of your medication list to your primary care provider. Update your medication list any time medications or doses are changed and carry your medication list at all times in case of emergency. Additional Information: Source: [facility] POWERCHART Document Id: [id number] ER PHOTOENGRAVING Miscellaneous - Pretty Avila L.P.N. - 11/04/2013 1:10 PM CST Adult Braider Tender Intake/History Adult Braider Tender Intake/History Entered On: 11/04/2013 13:13 ETCHER PHOTOENGRAVING Performed On: 11/04/2013 13:10 ETCHER PHOTOENGRAVING by PRETTY AVILA Intake Chief Complaint : headache for weeks Temperature Core : 36.3 DegC(Converted to: 97.3 DegF) (LOW) Peripheral Pulse Rate : 88 /min Respiratory Rate : 16 /min Systolic Blood Pressure : 108 mmHg Diastolic Blood Pressure : 70 mmHg NIBP Mean : 83 mmHg BP Location : Right upper extremity Blood Pressure Cuff Size : Large Height : 152 cm(Converted to: 5 ft 0 inch(es), 59.84 inch(es)) Actual Weight : 65 kg(Converted to: 143 lb 5 oz) Weight Source : Standing scale Dosing Weight Clinic : 65 kg Clinic BSA : 1.66 Body Mass Index : 28.13 kg/m2 PRETTY AVILA - 11/04/2013 13:10 ETCHER PHOTOENGRAVING General Info Information Given By : Patient Languages : Zimbabwean PRETTY AVILA 11/04/2013 13:10 ETCHER PHOTOENGRAVING Subjective Pain Symptoms : Yes PRETTY AVILA 11/04/2013 13:10 ETCHER PHOTOENGRAVING Pain Pain Assessment Grid Pain 1 Location : Head PRETTY AVILA 11/04/2013 13:10 ETCHER PHOTOENGRAVING Dependent Habits Tobacco Use/Currently Using : Yes Exposure to Tobacco Smoke : Patient smokes Smoking Status : Current every day smoker PRETTY AVILA 11/04/2013 13:10 ETCHER PHOTOENGRAVING Tobacco Use Grid Type : Cigarettes Cigarette Use Packs/Day : 0.3 PRETTY AVILA - 11/04/2013 13:10 ETCHER PHOTOENGRAVING Caffeine Use Grid Caffeine Use : None PRETTY AVILA - 11/04/2013 13:10 ETCHER PHOTOENGRAVING Recreational Drug Use Grid Drug Use : None PRETTY AVILA - 11/04/2013 13:10 ETCHER PHOTOENGRAVING Source: [facility] POWERCHART Document Id: [id number] ETCHER PHOTOENGRAVING!40 ER PHOTOENGRAVING documented in this encounter Plan of Treatment Upcoming Encounters Date Type Specialty Care Team Description 08/30/2022 Clinical Communication Admitting/Central Scheduling 09/02/2022 Comprehensive Visit Endocrinology Ricardo Winkler APRN, C.N.P., D.N.P. [address] [place] [phone] documented as of this encounter Visit Diagnoses Not on filedocumented in this encounter Additional Health Concerns Assessment Noted Time PHQ-9 Depression Total Score: 22 10/04/2013 2:31 PM CS T documented as of this encounter
--- OUTSIDE RECORDS SUMMARY | 2022-08-16 21:34 | XMS_ITS | Encounter Summary ---
:1985 Author Organization [facility] Address [address] [place] [address] Care Team Providers Name Role Phone Unavailable Primary Care Provider Unavailable Encounter Details Date Type Department Care Team Description 06/17/2014 Hospital Encounter HX [facility] Yarelis Dial i, M.D. [address] [place] [phone] (Wo rk) Social History Tobacco [...] do you attend rastafari or Never 2021 mu-ism services? Do you [...] Reading Time Taken Comments Blood Pressure 100/62 06/17/2014 1:51 PM CDT Pulse 96 06/17/2014 1:51 PM CDT Temperature - - Respiratory Rate 20 06/17/2014 1:51 PM CDT Oxygen Saturation - - Inhaled Oxygen Concentration - - Weight 74 kg (163 lb 2.3 oz) 06/17/2014 1:51 PM CDT Height 152 cm (4' 11.84) 06/17/2014 1:51 PM CDT Body Mass Index 32.03 06/17/2014 1:51 PM CDT documented in this encounter H&P Notes Yarelis Steinberg M.D. - 06/17/2014 1:34 PM CDT [id number] CHIEF COMPLAINT/ REASON FOR VISIT Follow up after ER visit. HISTORY OF PRESENT ILLNESS Samuel is a 28 year old female who presents to the clinic today to follow up after an ER visit. She presented to the emergency department on 06/09 with abdominal pain. Pelvic ultrasound showed ruptured left ovarian cyst. She continues to have lower abdominal discomfort and bloating. She discontinued Tri Lili due to skin rash. Samuel reports dark-colored urine for the last two weeks. She has difficulty voiding her bladder. She states that she drinks large amounts of water. The patient denies any additional questions or concerns at this time. MEDICATIONS Post-visit Medication Reconciliation Reviewed and are as outlined in the EMR including 1. Denise oral contraceptive, prescribed today. ALLERGIES None. SYSTEMS REVIEW See HPI. PAST MEDICAL/SURGICAL HISTORY 1. Polycystic ovarian syndrome. 2. Depression. 3. History of cervical dysplasia. 4. Headache. 5. 5, para 3. PREVENTIVE SERVICES Tobacco use: Yes. VITAL SIGNS WEIGHT: 152 cm BMI: 74 kg BMI: 32.03 kg/m2 TEMPERATURE: 36.2 DegC SpO2: 96 /min RESPIRATORY RATE: 20 /min BLOOD PRESSURE: 100 mmHg/62 mmHg PHYSICAL EXAMINATION GENERAL: Patient is alert and oriented times three, in no acute distress, good hygiene and is dressed appropriately. IMPRESSION/REPORT/PLAN 1. PCOS: Denise is prescribed today. She is advised to restart spironolactone. 2. Follow up: The patient will contact the clinic with any new or worsening symptoms. This document serves as a record of services personally performed by Yarelis Reyes MD. It was created on their behalf by Samuel Perea, a trained adjunct faculty for medical terminology. The creation of this record is based on the scribe's personal observations and the provider's statements to them. This document has been matilda cked and approved by the attending provider. Yarelis Reyes M.D./carlo Electronically Signed By: YARELIS REYES MD On: 08/03/2014 08:46 PM Source: [facility] MHSDOLBEYNONRADSYS Document Id: [id number] documented in this encounter Miscellaneous Notes Miscellaneous - Yarelis Steinberg M.D. - 06/17/2014 11:54 PM CDT Ambulatory Patient Summary [address] [id number] Visit Information Name: SAMUEL NG [facility] Number: [id number] Current Date: 06/17/2014 23:54:44 Physicians Attending Provider: YARELIS REYES MD Primary [...] release) 1 Tablet(s), Oral, two timesa day cyclobenzaprine (Flexeril) as needed drospirenone-ethinyl estradiol (Denise 3 mg-0.02 mg oral tablet) 1 Tablet(s), Oral, once a day New Routed to [address] [address] *LORazepam (LORazepam 0.5 mg oral tablet) 1 [...] the Following Medications: Medication list as of 06-17-14 23:54 Attention: If you have any medications at [...] Electronically Signed By: YARELIS REYES MD Signed On:17-JUN-2014 23:54:38 Your Allergies & Intolerances Substance Reaction Symptoms [...] appointment detail needed. Your Goals/Additional instructions: Source: [facility] POWERCHART Document Id: [id number] Miscellaneous - Yarelis Steinberg M.D. - 06/17/2014 11:54 PM CDT Ambulatory Discharge Medication List [address] [id number] Visit Information Name: SAMUEL NG [facility] Number: [id number] Visit Date: 06/17/2014 23:54:42 Attending Provider: YARELIS REYES MD Primary Care [...] release) 1 Tablet(s), Oral, two timesa day cyclobenzaprine (Flexeril) as needed drospirenone-ethinyl estradiol (Denise 3 mg-0.02 mg oral tablet) 1 Tablet(s), Oral, once a day New Routed to [address] [id number] *LORazepam (LORazepam 0.5 mg oral tablet) 1 [...] the Following Medications: Medication list as of 06-17-14 23:54 Attention: If you have any medications at [...] Electronically Signed By: YARELIS REYES MD Signed On:17-JUN-2014 23:54:38 Additional Information: Source: [facility] POWERCHART Document Id: [id number] Miscellaneous - Conversion, Historical Provider Ser - 06/17/2014 1:51 PM CDT Adult Stogie Packer Intake/History Adult Stogie Packer Intake/History Entered On: 06/17/2014 13:54 CDT Performed On: 06/17/2014 13:51 CDT by LEORA MALONEY LPN Intake Chief Complaint : hematuria Temperature Core : 36.2 DegC(Converted to: 97.2 DegF) (LOW) Peripheral Pulse Rate : 96 /min Respiratory Rate : 20 /min Systolic Blood Pressure : 100 mmHg Diastolic Blood Pressure : 62 mmHg NIBP Mean : 75 mmHg BP Location : Left upper extremity Blood Pressure Cuff Size : Regular Height : 152 cm(Converted to: 5 ft 0 inch(es), 60 inch(es)) Actual Weight : 74 kg(Converted to: 163 lb 2 oz) Dosing Weight Clinic : 74 kg Clinic BSA : 1.77 Body Mass Index : 32.03 kg/m2 LEORA MALONEY LPN - 06/17/2014 13:51 CDT General Info Information Given By : Patient Languages : Chinese LEORA MALONEY LPN - 06/17/2014 13:51 CDT Subjective Pain Symptoms : Yes LEORA MALONEY LPN - 06/17/2014 13:51 CDT Pain Pain Assessment Grid Pain 1 Location : Abdomen LEORA MALONEY LPN - 06/17/2014 13:51 CDT Dependent Habits Tobacco Use/Currently Using : Yes Tobacco Use/Advised to Quit : Yes Exposure to Tobacco Smoke : Patient smokes Smoking Status : Current every day smoker LEORA MALONEY LPN - 06/17/2014 13:51 CDT Tobacco Use Grid Type : Cigarettes Cigarette Use Packs/Day : 0.3 LEORA MALONEY LPN - 06/17/2014 13:51 CDT Caffeine Use Grid Caffeine Use : None LEORA MALONEY LPN - 06/17/2014 13:51 CDT Recreational Drug Use Grid Drug Use : None PRAVEEN LEORA GLYNN WEAPONS DESIGNER - 06/17/2014 13:51 CDT Source: [facility] POWERCHART Document Id: [id number] CDT!40 documented in this encounter Plan of Treatment Upcoming Encounters Date Type Specialty Care Team Description 08/30/2022 Clinical Communication Admitting/Central Scheduling 09/02/2022 Comprehensive Visit Endocrinology Ricardo Winkler APRN, C.N.P., D.N.P. [address] [place] [phone] documented as of this encounter Procedures Procedure Name Priority Date/Time Associated Comments Diagnosis BACTERIAL CULTURE, Routine 06/17/2014 1:59 PM Res ults for this AEROBIC, URINE CDT procedure are in the results section. URINALYSIS WITH Routine 06/17/2014 1:59 PM Result s for this MICROSCOPIC CDT procedure are i n the results section. documented in this encounter Results Bacterial Culture, Aerobic, Urine (06/17/2014 1:59 PM CDT) [facility] redIT Method Time Signature Bacterial POWERCHART Culture, Aerobic, Urine HXPre No growth POWERCHART HXFinal Mixed elisabeth. No POWERCHART further studies unless notified. HXFinal [place] POWERCHART Microbiology laboratory [phone] Specimen (Source) Anatomical Collection Method Collection Time Re ceived Time Location / / Volume Laterality Urine, Clean 06/17/2014 1:59 PM Catch CDT Yarelis Reyes M.D. LAB MICROBIOLOGY - GEN ERAL ORDERABLES Performing Organization Address City/State/ZIP Code Phon e Number POWERCHART (ABNORMAL) Urinalysis, Complete, Includes Microscopic (06/17/2014 1:59 PM CDT) [facility] redIT Method Time Signature HXUR WBC. Occ-3 HPF POWERCHART HXUR RBC. None Seen HPF POWERCHART HXUR Bacteria, Present (A) POWERCHART Crystals None Seen POWERCHART Mucus Present (A) POWERCHART Protein, Ur, Dip Negative MGDL POWERCHART Source Clean Void POWERCHART Urine HXUr Color Yellow POWERCHART Glucose Negative MGDL POWERCHART HXBILIRUBIN Negative POWERCHART Ketones, QL(U) Trace (A) MGDL POWERCHART Specific 1.025 POWERCHART [place], POCT, U Clarity Clear POWERCHART pH, POCT, Urine 5.5 POWERCHART HXBLOOD Negative POWERCHART Urobilinogen 0.2 MGDL POWERCHART HXNITRITE Negative POWERCHART Leukocyte Negative POWERCHART Esterase Specimen (Source) Anatomical Collection Method Collection Time Re ceived Time Location / / Volume Laterality Urine 06/17/2014 1:59 PM CDT Yarelis Reyes M.D. LAB URINE ORDERABLES Performing Organization Address City/State/ZIP Code Phon e Number POWERCHART documented in this encounter Visit Diagnoses Not on filedocumented in this encounter Additional Health Concerns Assessment Noted Time PHQ-9 Depression Total Score: 22 10/04/2013 2:31 PM CS T documented as of this encounter
--- OUTSIDE RECORDS SUMMARY | 2022-08-16 21:34 | XMS_ITS | Encounter Summary ---
:1985 Author Organization [facility] Address [address] [place] [address] Care Team Providers Name Role Phone Unavailable Primary Care Provider Unavailable Encounter Details Date Type Department Care Team Description 10/04/2013 Hospital Encounter HX [facility] Narinder Corea M.D. Social History Tobacco Use Types Packs/Day [...] do you attend sikhism or Never 2021 yazdanism services? Do you belong to any clubs [...] of this encounter Miscellaneous Notes Miscellaneous - Narinder Enriquez M.D. - 10/04/2013 6:14 PM CST Normal Results Letter 04 October 2013 SAMUEL NG [address] [facility] [id number] Dear SAMUEL NG, I am pleased to report that your results from the following diagnostic test is normal. Your pelvic ultrasound is normal. You have a small left ovarian cyst which appears simple in nature. There is no evidence of polycystic disease or other anomalies. Please follow up with us as we discussed during your visit or sooner if you have any concerns. If you have questions or concerns, please do not hesitate to call our office. Result Name Current Result US Pelvic And Endovaginal 10/04/2013 Sincerely, NARINDER ENRIQUEZ [address] [place] [id number] Electronic Signature Electronically Signed By: NARINDER ENRIQUEZ MD On: 04 October 2013 This document has images extracted. Source: [facility] POWERCHART Document Id: [id number] Electronically signed by Wendi [facility] Elevator Worker [id number] at 04/23/2017 12:40 AM CDT documented in this encounter Plan of Treatment Upcoming Encounters Date Type Specialty Care Team Description 08/30/2022 Clinical Communication Admitting/Central Scheduling 09/02/2022 Comprehensive Visit Endocrinology Ricardo Winkler APRN, C.N.P., D.N.P. [address] [place] [phone] documented as of this encounter Procedures Procedure Name Priority Date/Time Associated Comments Diagnosis US PELVIS TRANSVAGINAL Routine 10/04/2013 9:30 AM Results for this AND TRANSABDOMINAL SALES AND CUSTOMER RELATIONS REP procedure are in the results section. documented in this encounter Results US Pelvis Transvaginal and Transabdominal (10/04/2013 9:30 AM SALES AND CUSTOMER RELATIONS REP) Anatomical Region Laterality Modality Pelvis N/A Ultrasound Specimen (Source) Anatomical Collection Method Collection Time Re ceived Time Location / / Volume Laterality 10/04/2013 9:30 AM SALES AND CUSTOMER RELATIONS REP Addenda Addendum by Provider, Efren Fisher n 10/04/2013 9:30 AM SALES AND CUSTOMER RELATIONS REP RAD^^^OW US Pelvic And Endovaginal 10/04/2013 09:30:00 Addendum by Provider, Efren Fisher n 10/04/2013 8:41 AM SALES AND CUSTOMER RELATIONS REP RAD^^^OW US Pelvic And Endovaginal 10/04/2013 08:41:00 Addendum by Justice, Efren Fisher 10/04/2013 9:30 AM SALES AND CUSTOMER RELATIONS REP RAD^^^MA US Pelvic And Endovaginal 10/04/2013 09:30:00 Addendum by Provider, Efren Fisher n 10/04/2013 8:41 AM SALES AND CUSTOMER RELATIONS REP RAD^^^MA US Pelvic And Endovaginal 10/04/2013 08:41:00 Impressions 10/04/2013 10:31 AM SALES AND CUSTOMER RELATIONS REP 3.4 cm left ovarian cyst, otherwise negative pelvic ultrasound. Narrative 10/04/2013 10:31 AM SALES AND CUSTOMER RELATIONS REP EXAM: US Pelvic And Endovaginal INDICATION: ovarian pain, hx of pcos COMPARISON: 12/28/2009. FINDINGS: Both transabdominal and transv aginal exams are performed. The uterus is midline in position and no rmal in size and appearance with an unremarkable endometrial stripe measuring 6 mm. No uterine mass or intrauterine fluid is identified . The ovaries are visualized bilaterally and normal in overall size. There is normal and symmetric vascularity bilaterally. The right ovary is unremarkable. There is a left ovarian cyst measuring 3.4 cm in gr eatest dimension. There is no free fluid in the pelvic cul-de-sac. Procedure Note Rafiq Pina Jr., M.D. / Natalia Jesus M.D. - 04/11/2017 EXAM: US Pelvic And Endovaginal INDICATION: ovarian pain, hx of pcos COMPARISON: 12/28/2009. FINDINGS: Both transabdominal and transv aginal exams are performed. The uterus is midline in position and no rmal in size and appearance with an unremarkable endometrial stripe measuring 6 mm. No uterine mass or intrauterine fluid is identified . The ovaries are visualized bilaterally and normal in overall size. There is normal and symmetric vascularity bilaterally. The right ovary is unremarkable. There is a left ovarian cyst measuring 3.4 cm in gr eatest dimension. There is no free fluid in the pelvic cul-de-sac. IMPRESSION: 3.4 cm left ovarian cyst, ot herwise negative pelvic ultrasound. Fabian Vincent Jr. RKasia.M.S. IMG US PROCEDURES documented in this encounter Visit Diagnoses Not on filedocumented in this encounter Additional Health Concerns Assessment Noted Time PHQ-9 Depression Total Score: 22 10/04/2013 2:31 PM CS T documented as of this encounter
--- OUTSIDE RECORDS SUMMARY | 2022-08-16 21:34 | XMS_ITS | Encounter Summary ---
:1985 Author Organization [facility] Address [address] [place] [address] Care Team Providers Name Role Phone Unavailable Primary Care Provider Unavailable Encounter Details Date Type Department Care Team Description 03/22/2014 Hospital Encounter HX [facility] Yarelis Leon M.D. [address] [phone] (Wo rk) Social History [...] do you attend mormon or Never 2021 moravian services? Do you [...] Ricardo Winkler, SILVIO, C.N.P., D.N.P. [address] [place] [phone] documented as of this encounter Procedures Procedure Name Priority Date/Time Associated Diagnosis Comme nts CORTISOL, FREE, U Routine 03/22/2014 2:14 PM Resu lts for this CDT procedure are i n the results section. documented in this encounter Results Cortisol, Free, 24 Hour, Urine (03/22/2014 2:14 PM CDT) P athologist Signature Cortisol, U 15 3.5 - 45 POWERCHART HXHrs 24 HR POWERCHART Cortisol-[place] HXTV 1100 ML POWERCHART Cortisol-[place] Comment: Test Performed by: [address] [address] Venetian Blind Installer: Andi hitchcock III, M.D. Specimen (Source) Anatomical Collection Method Collection Time Re ceived Time Location / / Volume Laterality Urine 03/22/2014 2:14 PM CDT Yarelis Reyes M.D. LAB URINE ORDERABLES Performing Organization Address City/State/ZIP Code Phon e Number POWERCHART documented in this encounter Visit Diagnoses Not on filedocumented in this encounter Additional Health Concerns Assessment Noted Time PHQ-9 Depression Total Score: 22 10/04/2013 2:31 PM CS T documented as of this encounter
--- OUTSIDE RECORDS SUMMARY | 2022-08-16 21:34 | XMS_ITS | Encounter Summary ---
:1985 Author Organization [facility] Address [address] [place] [address] Care Team Providers Name Role Phone Unavailable Primary Care Provider Unavailable Encounter Details Date Type Department Care Team Description 03/18/[address] [facility] Yarelis Leon M.D. [address] [phone] (Wo rk) Social History [...] do you attend mormonism or Never 2021 amish services? Do you [...] Endocrinology Ricardo Winkler, SILVIO, C.N.P., D.N.P. [address] [place] [phone] documented as of this encounter Procedures Procedure Name Priority Date/Time Associated Diagnosis Comme nts CORTISOL, S Routine 03/18/2014 9:38 AM Results f or this CDT procedure are i n the results section . documented in this encounter Results (ABNORMAL) Cortisol (03/18/2014 9:38 AM CDT) athologist Signature Cortisol AM <1.0 (L) 7 - 25 POWERCHART Result [facility] Comment: Test Performed by: [address] [address] Local Area Network Administrator: Andi hitchcock III, M.D. Specimen (Source) Anatomical Collection Method Collection Time Re ceived Time Location / / Volume Laterality Blood 03/18/2014 9:38 AM CDT Yarelis Reyes M.D. LAB BLOOD ADD-ON Performing Organization Address City/State/ZIP Code Phon e Number POWERCHART documented in this encounter Visit Diagnoses Not on filedocumented in this encounter Additional Health Concerns Assessment Noted Time PHQ-9 Depression Total Score: 22 10/04/2013 2:31 PM CS T documented as of this encounter
--- OUTSIDE RECORDS SUMMARY | 2022-08-16 21:34 | XMS_ITS | Encounter Summary ---
:1985 Author Organization [facility] Address [address] [place] [address] Care Team Providers Name Role Phone Unavailable Primary Care Provider Unavailable Encounter Details Date Type Department Care Team Description 03/18/2014 Hospital Encounter HX [facility] Yarelis Leon M.D. [address] [phone] (Wo rk) Social History [...] do you attend zoroastrianism or Never 2021 presybeterian services? Do you [...] Ricardo Winkler, SILVIO, C.N.P., D.N.P. [address] [place] [phone] documented as of this encounter Procedures Procedure Name Priority Date/Time Associated Comments Diagnosis HXPERIPH SMEAR EXAM Routine 03/18/2014 9:38 AM Re sults for this CDT procedure are i n the results section. LIPID PANEL, S Routine 03/18/2014 9:38 AM Results for this CDT procedure are i n the results section. AUTOMATED Routine 03/18/2014 9:38 AM Results f or this DIFFERENTIAL, B CDT procedure ar e in the results section. CBC WITH DIFFERENTIAL, Routine 03/18/2014 9:38 AM Results for this B CDT procedure are i n the results section. THYROID-STIMULATING Routine 03/18/2014 9:38 AM Re sults for this HORMONE-SENSITIVE CDT procedure are in (S-TSH) the results section. COMPREHENSIVE Routine 03/18/2014 9:38 AM Results for this METABOLIC PANEL, S/P CDT procedu re are in the results section. documented in this encounter Results HXPERIPH SMEAR EXAM (03/18/2014 9:38 AM CDT) Patholo gist Method Time Signature HXWBC Est. agree agree POWERCHART PLT Estimate adequate POWERCHART HXPeriph Morph appears POWERCHART normal Specimen (Source) Anatomical Collection Method Collection Time Re ceived Time Location / / Volume Laterality Blood 03/18/2014 9:38 AM CDT Yarelis Reyes M.D. LAB HISTORICAL ORDERS Performing Organization Address City/State/ZIP Code Phon e Number POWERCHART (ABNORMAL) Automated Differential (03/18/2014 9:38 AM CDT) [facility] gist Method Time Signature Neutro % 83.7 (H) 34.0 - POWERCHART 71.1 Lymphocytes % 11.2 (L) 19.3 - POWERCHART 51.7 HX [place] % 4.0 (L) 4.7 - POWERCHART 12.5 HX Eos % 0.9 0.7 - 5.8 POWERCHART HX Baso % 0.2 0.1 - 1.2 POWERCHART Absolute 17.92 (H) 1.70 - POWERCHART Neutrophils 7.00 109L Lymphocytes 2.39 0.90 - POWERCHART 2.90 X109L Monocytes 0.85 0.30 - POWERCHART 0.90 X109L Eosinophils 0.19 0.05 - POWERCHART 0.50 X109L Absolute 0.04 0.00 - POWERCHART Basophil 0.30 X109L Specimen Anatomical Collection Method Collection Time Receive d Time (Source) Location / / Volume Laterality Blood 03/18/2014 9:38 AM 4 9:38 CDT AM CDT Yarelis Reyes M.D. LAB BLOOD ADD-ON Performing Organization Address City/State/ZIP Code Phon e Number POWERCHART (ABNORMAL) CBC with Differential (03/18/2014 9:38 AM CDT) [facility] [place] [employer] Method Time Signature Leukocytes 21.4 (H) 3.4 - 10.5 POWERCHART X109L Erythrocytes 3.99 3.90 - POWERCHART 5.03 [id number] Hemoglobin 12.4 12.0 - POWERCHART 15.5 GDL Hematocrit 37.9 34.9 - POWERCHART 44.5 MCV 95.0 82.0 - POWERCHART 98.0 FL Platelet Count 396 150 - 450 POWERCHART X109L HX RDW 13.8 11.9 - POWERCHART 15.5 HXDifferential? Auto POWERCHART Specimen (Source) Anatomical Collection Method Collection Time Re ceived Time Location / / Volume Laterality Blood 03/18/2014 9:38 AM CDT Yarelis Reyes M.D. LAB BLOOD ADD-ON Performing Organization Address City/State/ZIP Code Phon e Number POWERCHART Thyroid-Stimulating Hormone-Sensitive (s-TSH) (03/18/2014 9:38 AM CDT) P athologist Signature TSH, Sensitive 3.0 0.3 - 5.0 POWERCHART JAMILAUL Comment: Test Performed by: [address] [address] Eligibility Supervisor: Andi hitchcock III, M.D. Specimen (Source) Anatomical Collection Method Collection Time Re ceived Time Location / / Volume Laterality Blood 03/18/2014 9:38 AM CDT Yarelis Reyes M.D. LAB BLOOD ADD-ON Performing Organization Address City/State/ZIP Code Phon e Number POWERCHART (ABNORMAL) CMP (Comprehensive Metabolic Panel) (03/18/2014 9:38 AM CDT) Patholo gist Method Time Signature BUN (Blood Urea 7 6 - 20 POWERCHART Nitrogen), S MGDL Creatinine 0.6 (L) 0.7 - 1.2 POWERCHART MGDL Potassium, S 4.3 3.5 - 4.8 POWERCHART MMOLL Sodium, S 142 135 - 145 POWERCHART MMOLL Chloride, S 102 100 - 108 POWERCHART MMOLL CO2 Total 26 22 - 30 POWERCHART MMOLL Calcium, Total, S 9.5 8.5 - POWERCHART 10.5 MGDL Albumin, S 4.3 3.5 - 5.0 POWERCHART GMDL Alkaline 87 50 - 130 POWERCHART Phosphatase, S UNITL Aspartate 21 8 - 43 POWERCHART Aminotransferase UNITL (AST), S Alanine 31 9 - 52 POWERCHART Amniotransferase, LD UNITL Bilirubin, Total, S 0.4 0.1 - 1.0 POWERCHART MGDL Total Protein, S 7.4 6.3 - 8.2 POWERCHART MGDL Glucose, Fasting, S 107 (H) 70 - 99 POWERCHART MGDL HXeGFR (MDRD) >60 MLMIN POWERCHART eGFR Black/ >60 MLMIN POWERCHART [place] Specimen (Source) Anatomical Collection Method Collection Time Re ceived Time Location / / Volume Laterality Blood 03/18/2014 9:38 AM CDT Yarelis Reyes M.D. LAB BLOOD ADD-ON Performing Organization Address City/State/ZIP Code Phon e Number POWERCHART (ABNORMAL) Lipid Panel (03/18/2014 9:38 AM CDT) [facility] gist Method Time Signature Cholesterol, Total 173 0 - 200 POWERCHART MGDL HX HDL 54.0 40.0 - POWERCHART 60.0 MGDL Triglycerides 67 0 - 150 POWERCHART MGDL Calculated LDL 106 (H) 0 - 100 POWERCHART MGDL Specimen (Source) Anatomical Collection Method [...]
--- OUTSIDE RECORDS SUMMARY | 2022-08-16 21:35 | XMS_ITS | Encounter Summary ---
:1985 Author Organization [facility] Address [address] [place] [address] Care Team Providers Name Role Phone Unavailable Primary Care Provider Unavailable Encounter Details Date Type Department Care Team Description 06/11/2012 Hospital Encounter HX [facility] Yarelis Reyna M.D. [address] [phone] (Wo rk) Social History [...] you attend oriental orthodox or Never 2021 holiness services? Do you [...] Ricardo Winkler, SILVIO, C.N.P., D.N.P. [address] [place] [phone] documented as of this encounter Visit Diagnoses Not on filedocumented in this encounter Additional Health Concerns Assessment Noted Time PHQ-9 Depression Total Score: 13 10/22/2011 3:25 PM CS T documented as of this encounter
--- OUTSIDE RECORDS SUMMARY | 2022-08-16 21:35 | XMS_ITS | Encounter Summary ---
:1985 Author Organization [facility] Address [address] [place] [address] Care Team Providers Name Role Phone Unavailable Primary Care Provider Unavailable Encounter Details Date Type Department Care Team Description 02/19/2013 Hospital Encounter HX [facility] Yarelis Johnosn i, M.D. [address] [place] [address] (Wo rk) Social History Tobacco [...] do you attend episcopalian or Never 2021 methodist services? Do you [...] Ricardo Winkler APRN, C.N.P., D.N.P. [address] [place] [address] documented as of this encounter Procedures Procedure Name Priority Date/Time Associated Diagnosis Comme nts BI US WHOLE BREAST Routine 02/19/2013 12:28 PM Re sults for this BILATERAL CDT procedure are i n the results section. documented in this encounter Results BI US Whole Breast Bilateral (02/19/2013 12:28 PM CDT) Anatomical Region Laterality Modality Breast Bilateral Ultrasound Specimen (Source) Anatomical Collection Method Collection Time Re ceived Time Location / / Volume Laterality 02/19/2013 12:28 PM CDT Addenda Addendum by ProviderNatalia M.D. o n 02/19/2013 12:28 PM CDT RAD^^^OW US Breast Bilat 02/19/2013 12:28:00 Addendum by Natalia Rendon M.D. o n 02/19/2013 12:28 PM CDT RAD^^^MA US Breast Bilat 02/19/2013 12:28:00 Narrative 02/19/2013 2:27 PM CDT Sonographic evaluation of both breasts w as obtained over palpable abnormalities. There are no previous hali dies available for comparison. The breast tissue is normal in appearanc e on both sides, with no abnormal fluid collections or soft tissu e masses to suggest malignancy or other pathology. Therefore , the patient was instructed to follow this area for the next few mon ths. Impression: 1. Negative, normal ultrasound appearanc e of both breasts, ACR category 1. These findings were discussed with the p atient immediately following her exam. Procedure Note Ander Albrecht M.D. / Provider, Javan miller M.D. - 04/11/2017 Sonographic evaluation of both breasts w as obtained over palpable abnormalities. There are no previous hali dies available for comparison. The breast tissue is normal in appearanc e on both sides, with no abnormal fluid collections or soft tissu e masses to suggest malignancy or other pathology. Therefore , the patient was instructed to follow this area for the next few mon ths. Impression: 1. Negative, normal ultrasound appearanc e of both breasts, ACR category 1. These findings were discussed with the p atient immediately following her exam. Fabian Vincent Jr., R.D.M.S. IMG BI PROCEDURES documented in this encounter Visit Diagnoses Not on filedocumented in this encounter Additional Health Concerns Assessment Noted Time PHQ-9 Depression Total Score: 13 10/22/2011 3:25 PM CS T documented as of this encounter
--- OUTSIDE RECORDS SUMMARY | 2022-08-16 21:35 | XMS_ITS | Encounter Summary ---
:1985 Author Organization [facility] Address [address] [place] [address] Care Team Providers Name Role Phone Unavailable Primary Care Provider Unavailable Encounter Details Date Type Department Care Team Description 11/06/2010 Hospital Encounter HX [facility] Jose Cottrell M.D. [address], [place], [place] [id number] (Wo rk) Social History Tobacco Use Types [...] do you attend episcopalian or Never 2021 roman catholic services? Do [...] documented as of this encounter Progress Notes Hal Hogue M.D. - 11/06/2010 12:00 AM CST [id number] IMPRESSION/REPORT/PLAN Labor precautions are given. She will follow up with Dr. Enriquez next week if she doesn't deliver before then, which I think there is a very good chance she will. CHIEF COMPLAINT/REASON FOR VISIT Keily comes in today secondary to contractions approximately every 3 minutes apart. PHYSICAL EXAM AREA EXAM TEXT GENITALIA Cervix is 2, 80%, -1 station. BDB/mgd Signed Hal Hogue M.D. Obstetrics & Gynecology Electronically Signed By:HAL HOGUE MD On 11/07/2010 09:09 AM Source: [facility] MHSDOLBEYNONRADSYS Document Id: [id number] NO GAMING INSPECTOR documented in this encounter Miscellaneous Notes Miscellaneous - Hal Hogue M.D. - 11/06/2010 10:27 AM CST [place] [address] Visit Information Name: KEILY NG Current Date: 11/06/2010 10:27:57 Primary Care Provider: KAREN REYES MD [phone] Your Medications Here is a list of your medications. It is important to take your medications as directed. Use a pillbox or chart to help remind you to take your medications. Please let your doctor or nurse know if you have problems taking your medications. Medication/Strength Dose Route Frequency Indications/Special Instructions/Comments multivitamin, ( Multivitamins) 1 tablet Oral once a day Your Allergies & Intolerances Substance Reaction Symptoms Category Comments NKA Drug Your Problem List Problem Status Onset Comments state, other Active 04/02/2010 lmp 02/26/2010, edc 12/03/2010 Tobacco Use Disorder Active 04/02/2010 Depression* Active Bipolar disorder, depressed Active Polycystic ovarian disease Active Personal History of Cervical Dysplasia Active 10/03/2006 , spontaneous, complete Inactive 11/24/2004 miscarriage at 11wk , spontaneous, complete Inactive 11/24/2005 miscarriage at 13wk Your Recommendations We want to make sure you get the tests, immunizations, and guidance you need to stay healthy. Here is a customized list of recommendations, based on information we have in your medical record. Your doctor may have additional recommendations for you, based on your personal medical history and risk factors. You can help us by calling us to make an appointment when you are due for your tests. Additional information regarding recommendations: Test/Treatment Last Done Next Due Additional Information Screening Chlamydia every 1 year Females Age 15-24 04/02/2010 04/02/2011 Depression: PHQ-9 every 6 months 05/09/2010 11/08/2010 Screening Pap Smear every 3 years Women 21-65 12/19/2009 12/18/2012 Checks for signs of cancer of the cervix. Lipid Panel every 5 years Age 20-75 11/06/2010 Checks blood for good (HDL) and bad (LDL) cholesterol. Know your numbers, they are one indicator of your risk for heart attack and stroke. Vaccine: Tetanus every 10 years 12/29/2009 12/27/2019 Immunization to help prevent you from getting the serious disease Tetanus (Lockjaw). Your Upcoming Appointments Date Time Location Reason Provider 11/12/2010 14:00 [facility] TRENCHING MACHINE OPERATOR OB Mina GALLARDO, Jhonny Dockery Your Goals/Additional instructions: Source: [facility] POWERCHART Document Id: [id number] Electronically signed by Wendi, [facility] Senior Asp Net Developer [id number] at 04/28/2017 5:33 AM CDT Miscellaneous - Hal Hogue M.D. - 11/06/2010 10:27 AM CST [place] [address] Visit Information Name: KEILY NG Current Date: 11/06/2010 10:27:56 Primary Care Provider: KAREN REYES MD [phone] ANYA KEILY DYANA has been given the following list of medications: Your Medications It is important to take your medications as directed. Use a pill box or chart to help remind you to take your medications. Please let your doctor or nurse know if you have problems taking your medications. Medication/Strength Dose Route Frequency Indications/Special Instructions/Comments multivitamin, ( Multivitamins) 1 tablet Oral once a day Additional Information: Yes - Current list of reconciled medications is provided and explained to the patient and/or family, guardian/caregiver. 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 Has had diarrhea also. Feeling a lot of pressure in lower pelvis. Onset of Symptoms: Started last night. Having contractions as well. Systolic Blood Pressure: 120mmHg Diastolic Blood Pressure: 60mmHg NIBP Mean: 80mmHg Actual Weight: 64.700kg(Converted to: 142lb 10oz) Dosing Weight Clinic: 64.70kg ELISABETH LISA LPN - 11/06/2010 10:11 CASINO GAMING INSPECTOR Subjective Pain Symptoms: Yes ELISABETH LISA LPN - 11/06/2010 10:11 CASINO GAMING INSPECTOR Pain Pain Assessment Grid Pain 1 Location: Pelvic ELISABETH LISA LPN - 11/06/2010 10:11 CASINO GAMING INSPECTOR Dependent Habits Tobacco Use/Currently Using: No ELISABETH LISA LPN - 11/06/2010 10:11 CASINO GAMING INSPECTOR Tobacco Use Grid Type: Cigarettes ELISABETH LISA LPN - 11/06/2010 10:11 CASINO GAMING INSPECTOR Allergies Allergies (Active) NKA Estimated Onset Date: Unspecified ; Created By: DUSTY CLEMONS; Reaction Status: Active ; Category: Drug ; Substance: NKA ; Type: Allergy ; Updated By: DUSTY CLEMONS; Reviewed Date: 10/22/2010 14:29 CASINO GAMING INSPECTOR Source: [facility] POWERCHART Document Id: [id number] CASINO GAMING INSPECTOR!20 documented in this encounter Plan of Treatment Upcoming Encounters Date Type Specialty Care Team Description 08/30/2022 Clinical Communication Admitting/Central Scheduling 09/02/2022 Comprehensive Visit Endocrinology Ricardo Winkler, SILVIO, C.N.P., D.N.P. [address] [place] [address] documented as of this encounter Visit Diagnoses Not on filedocumented in this encounter
--- OUTSIDE RECORDS SUMMARY | 2022-08-16 21:35 | XMS_ITS | Encounter Summary ---
:1985 Author Organization [facility] Address [address] [place] [address] Care Team Providers Name Role Phone Unavailable Primary Care Provider Unavailable Encounter Details Date Type Department Care Team Description 02/26/2012 Hospital Encounter HX [facility] Karen Dial i, M.D. [address] [place] [address] (Wo rk) Social History Tobacco [...] do you attend congregation or Never 2021 taoist services? Do you [...] Sign Reading Time Taken Comments Blood Pressure 92/54 02/26/2012 10:32 AM CDT Pulse 58 02/26/2012 10:32 AM CDT Temperature - - Respiratory Rate 16 02/26/2012 10:32 AM CDT Oxygen Saturation - - Inhaled Oxygen Concentration - - Weight 67.5 kg (148 lb 13 oz) 02/26/2012 10:32 AM CDT Height 151 cm (4' 11.45) 02/26/2012 10:32 AM CDT Body Mass Index 29.6 02/26/2012 10:32 AM CDT documented in this encounter Progress Notes Karen Steinberg M.D. - 02/26/2012 12:00 AM CDT [id number] CHIEF COMPLAINT/ REASON FOR VISIT Chest pain HISTORY OF PRESENT ILLNESS Samuel has developed a pain in the chest over the past couple of weeks. It seems to have been associated with some cough and sinus congestion recently. She has noticed a tight sensation in the mid chest. She has not had fevers or chills. She sometimes finds that symptoms are significant enough to cause some nausea. CURRENT MEDICATIONS Medications are reviewed and are as outlined in the EMR, including the addition of prednisone. VITAL SIGNS HEIGHT: 151 cm WEIGHT: 67.5 kg TEMPERATURE: 36.7 RESPIRATIONS: 16 PULSE: 58 BLOOD PRESSURE: 92/54 PHYSICAL EXAM GENERAL: She does not appear ill. ENT: Her TMs are normal. Her oropharynx is without erythema or exudate. LYMPH NODES: Neck is without adenopathy. LUNGS: Lungs are clear. She has tenderness over costochondral junctions, especially on the right. HEART: Heart is regular rate and rhythm. IMPRESSION/REPORT/PLAN Costochondritis. Prescription is given for prednisone as outlined in the EMR. Cool or warm packs to the area may be helpful. Follow up with worsening symptoms. REYNAF/glt Signed Karen Reyes M.D. Family Medicine Electronically Signed By: KAREN REYES MD On: 03/15/2012 07:20 PM Source: [facility] MHSDOLBEYNONRADSYS Document Id: [id number] documented in this encounter Miscellaneous Notes Miscellaneous - Karen Steinberg M.D. - 02/26/2012 4:44 PM CDT Ambulatory Patient Summary [address] [address] Visit Information Name: SAMUEL NG Current Date: 02/26/2012 16:44:23 Physicians Attending Provider: KAREN REYES MD Primary Care Provider: KAREN REYES MD Your Medications Here is a list of your medications. It is important to take your medications as directed. Use a pillbox or chart to help remind you to take your medications. Please let your doctor or nurse know if you have problems taking your medications. Medication/Strength Dose Route Frequency Indications/Special Instructions/Comments predniSONE (predniSONE 50 mg oral tablet) 50 mg Oral once a day for 7 Days citalopram (citalopram 20 mg oral tablet) 20 mg Oral once a day Attention: If you have any medications at home that are not on this list, DO NOT take them until youcontact your provider for clarification. Your Allergies & Intolerances Substance Reaction Symptoms Category Comments No Known Allergies Drug Your Problem List Problem Status Onset Comments Tobacco Use Disorder Active 04/02/2010 Bipolar disorder, depressed Active Polycystic ovarian disease Active Personal History of Cervical Dysplasia Active 10/03/2006 Depressive disorder, major, recurrent episode Active Your Upcoming Appointments Date Time Location Reason Provider No Appointments found Your Goals/Additional instructions: Source: [facility] POWERCHART Document Id: [id number] Miscellaneous - Karen Steinberg M.D. - 02/26/2012 4:44 PM CDT Ambulatory Depart Summary [address] [place] [address] Visit Information Name: SAMUEL NG Visit Date: 02/26/2012 16:44:22 Attending Provider: KAREN REYES MD Primary Care [...] medications. Medication/Strength Dose Route Frequency Indications/Special Instructions/Comments predniSONE (predniSONE 50 mg oral tablet) 50 mg Oral once a day for 7 Days citalopram (citalopram 20 mg oral tablet) 20 mg Oral once a day Attention: If you have any medications at home that are not on this list, DO NOT take them until youcontact your provider for clarification. Additional Information: Source: [facility] POWERCHART Document Id: [id number] Miscellaneous - Bushra Christy, L.P.N. - 02/26/2012 10:32 AM CDT Adult Light Technician Intake/History Adult Light Technician Intake/History Entered On: 02/26/2012 10:35 CDT Performed On: 02/26/2012 10:32 CDT by BUSHRA CHRISTY Intake Chief Complaint : c/o sore chest/ tightness Temperature Core : 36.7C(Converted to: 98.1DegF) Peripheral Pulse Rate : 58/min (LOW) Respiratory Rate : 16/min Heart Rhythm : Regular Systolic Blood Pressure : 92mmHg Diastolic Blood Pressure : 54mmHg NIBP Mean : 67mmHg BP Location : Right upper extremity Blood Pressure Cuff Size : Regular Height : 151cm(Converted to: 4ft 11inch(es), 59.45inch(es)) Actual Weight : 67.5kg(Converted to: 148lb 13oz) Weight Source : Standing scale Dosing Weight Clinic : 67.50kg Clinic BSA : 1.68 Body Mass Index : 29.60kg/m2 BUSHRA CHRISTY 02/26/2012 10:32 CDT Subjective Pain Symptoms : No BUSHRA CHRISTY 02/26/2012 10:32 CDT Dependent Habits Tobacco Use/Currently Using : No Exposure to Tobacco Smoke : Other: former- quit 2009 Smoking Status : Former smoker BUSHRA CHRISTY 02/26/2012 10:32 CDT Tobacco Use Grid Type : Cigarettes Other Tobacco Frequency : non BUSHRA CHRISTY 02/26/2012 10:32 CDT Caffeine Use Grid Caffeine Use : None BUSHRA CHRISTY 02/26/2012 10:32 CDT Recreational Drug Use Grid Drug Use : None BUSHRA CHRISTY 02/26/2012 10:32 CDT Allergy Allergies (Active) NKA Estimated Onset Date: Unspecified ; Created By: DUSTY CLEMONS; Reaction Status: Active ; Category: Drug ; Substance: NKA ; Type: Allergy ; Updated By: DUSTY CLEMONS; Reviewed Date: 02/26/2012 10:31 CDT Source: [facility] Open K[employer] LabsCHART Document Id: [id number] CDT!34 documented in this encounter Plan of Treatment Upcoming Encounters Date Type Specialty Care Team Description 08/30/2022 Clinical Communication Admitting/Central Scheduling 09/02/2022 Comprehensive Visit Endocrinology Ricardo Winkler APRN, C.N.P., D.N.P. [address] [place] [address] documented as of this encounter Visit Diagnoses Not on filedocumented in this encounter Additional Health Concerns Assessment Noted Time PHQ-9 Depression Total Score: 13 10/22/2011 3:25 PM CS T documented as of this encounter
--- OUTSIDE RECORDS SUMMARY | 2022-08-16 21:35 | XMS_ITS | Encounter Summary ---
:1985 Author Organization [facility] Address [address] [place] [address] Care Team Providers Name Role Phone Unavailable Primary Care Provider Unavailable Encounter Details Date Type Department Care Team Description 12/13/2010 Hospital Encounter [facility]X [facility] Jhonny De La Rosa M .D. Social History [...] do you attend confucianism or Never 2021 rastafarian services? Do you [...] Ricardo Winkler APRN, C.N.P., D.N.P. [address] [place] [phone] documented as of this encounter Visit Diagnoses Not on filedocumented in this encounter Additional Health Concerns Assessment Noted Time PHQ-9 Depression Total Score: 5 12/13/2010 11:47 AM CS T documented as of this encounter
--- OUTSIDE RECORDS SUMMARY | 2022-08-16 21:35 | XMS_ITS | Encounter Summary ---
:1985 Author Organization [facility] Address [address] [place] [address] Care Team Providers Name Role Phone Unavailable Primary Care Provider Unavailable Encounter Details Date Type Department Care Team Description 12/31/2012 Hospital Encounter [facility]X [facility] SURGEON Brady Palacios M.D. Social History Tobacco Use Types Packs/Day [...] do you attend christian or Never 2021 restorationism services? Do you [...] Reading Time Taken Comments Blood Pressure 94/52 12/31/2012 2:27 PM LOCATION MAN Pulse - - Temperature - - Respiratory Rate - - Oxygen Saturation - - Inhaled Oxygen Concentration - - Weight - - Height - - Body Mass Index - - documented in this encounter Progress Notes Frank Palacios M.D. - 12/31/2012 2:13 PM CST [id number] CHIEF COMPLAINT/REASON FOR VISIT Followup status post laparoscopic appendectomy. HISTORY OF PRESENT ILLNESS The patient is here for a postoperative check after undergoing a laparoscopic appendectomy a week ago. She did quite well. However, on Friday she thought when she got up she popped a stitch at the bellybutton. The wound opened up a little bit. Unfortunately, the Steristrips came off. PHYSICAL EXAMINATION Exam today shows that the skin is only partially opposed and I put a Steristrip on the area. There is some slight redness. I think it will probably heal okay. IMPRESSION/REPORT/PLAN She will return p.r.n. if any problems develop. Frank Palacios M.D./melinda DOCID: [id number] Electronically Signed By: FRANK PALACIOS MD On: 01/04/2013 02:33 PM Source: [facility] MHSDOLBEYNONRADSYS Document Id: [id number] TION MAN documented in this encounter Miscellaneous Notes Miscellaneous - Frank Palacios M.D. - 12/31/2012 2:52 PM CST [place] [address] Visit Information Name: SAMUEL NG [facility] Number: [id number] Current Date: 12/31/2012 14:52:01 Physicians Attending Provider: FRANK PALACIOS MD Primary Care Provider: KAREN REYES MD Your Medications Here is a list of your medications. It is important to take your medications as directed. Use a pillbox or chart to help remind you to take your medications. Please let your doctor or nurse know if you have problems taking your medications. Medication/Strength Dose Route Frequency Indications/Special Instructions/Comments hydrocodone-acetaminophen ([place]akes[place]ore 5 mg-325 mg oral tablet) 1 tab(s) Oral every 6 hours norelgestromin-ethinyl estradiol (Ortho Evra 150 mcg-20 mcg/24 hr transdermal film, extended release) 1 patch Transdermal every week (apply a new patch weekly for 3 weeks, remove for 1 week, then repeat cycle) citalopram (citalopram 20 mg oral tablet) 20 [...] No Appointments found Your Goals/Additional instructions: Source: [facility] POWERCHART Document Id: [id number] TION MAN Miscellaneous - Frank Palacios M.D. - 12/31/2012 2:52 PM CST [place] [address] Visit Information Name: SAMUEL NG [facility] Number: [id number] Visit Date: 12/31/2012 14:52:00 Attending Provider: FRANK PALACIOS MD Primary Care Provider: KAREN REYES MD SAMUEL NG has been given the following list of medications: Your Medications It is important to take your medications as directed. Use a pill box or chart to help remind you to take your medications. Please let your doctor or nurse know if you have problems taking your medications. Medication/Strength Dose Route Frequency Indications/Special Instructions/Comments hydrocodone-acetaminophen ([place]ore 5 mg-325 mg oral tablet) 1 tab(s) Oral every 6 hours norelgestromin-ethinyl estradiol (Ortho Evra 150 mcg-20 mcg/24 hr transdermal film, extended release) 1 patch Transdermal every week (apply a new patch weekly for 3 weeks, remove for 1 week, then repeat cycle) citalopram (citalopram 20 mg oral tablet) 20 mg Oral once a day Attention: If you have any medications at home that are not on this list, DO NOT take them until youcontact your provider for clarification. Additional Information: Source: [facility] POWERCHART Document Id: [id number] TION MAN Miscellaneous - Iris Dacosta, R.N. - 12/31/2012 2:27 PM CST Adult Telecine Operator Intake/History Adult Telecine Operator Intake/History Entered On: 12/31/2012 14:28 LOCATION MAN Performed On: 12/31/2012 14:27 LOCATION MAN by IRIS DACOSTA Intake Chief Complaint : Post op Temperature Core : 36.2C(Converted to: 97.2DegF) (LOW) Systolic Blood Pressure : 94mmHg Diastolic Blood Pressure : 52mmHg NIBP Mean : 66mmHg BP Location : Right upper extremity Blood Pressure Cuff Size : Regular IRIS DACOSTA - 12/31/2012 14:27 LOCATION MAN General Info Languages : Tajik IRIS DACOSTA - 12/31/2012 14:27 LOCATION MAN Subjective Pain Symptoms : Yes IRIS DACOSTA - 12/31/2012 14:27 LOCATION MAN Pain Pain Assessment Grid Pain 1 Location : Abdomen (Comment: tender [IRIS DACOSTA - 12/31/2012 14:27 LOCATION MAN] ) IRIS DACOSTA - 12/31/2012 14:27 LOCATION MAN Dependent Habits Tobacco Use/Currently Using : No Exposure to Tobacco Smoke : Other: former- quit 2009 Smoking Status : Never smoker IRIS DACOSTA - 12/31/2012 14:27 LOCATION MAN Tobacco Use Grid Type : Cigarettes Other Tobacco Frequency : non Last Use : 04/2010 IRIS DACOSTA - 12/31/2012 14:27 LOCATION MAN Caffeine Use Grid Caffeine Use : None IRIS DACOSTA - 12/31/2012 14:27 LOCATION MAN Recreational Drug Use Grid Drug Use : None IRIS DACOSTA - 12/31/2012 14:27 LOCATION MAN Allergy Allergies (Active) NKA Estimated Onset Date: Unspecified ; Created By: DUSTY CLEMONS; Reaction Status: Active ; Category: Drug ; Substance: NKA ; Type: Allergy ; Updated By: DUSTY CLEMONS; Reviewed Date: 12/31/2012 14:26 LOCATION MAN Source: [facility] [employer] Document Id: [id number] TION MAN documented in this encounter Plan of Treatment Upcoming Encounters Date Type Specialty Care Team Description 08/30/2022 Clinical Communication Admitting/Central Scheduling 09/02/2022 Comprehensive Visit Endocrinology Ricardo Winkler APRN, C.N.P., D.N.P. [address] [place] [address] documented as of this encounter Visit Diagnoses Not on filedocumented in this encounter Additional Health Concerns Assessment Noted Time PHQ-9 Depression Total Score: 13 10/22/2011 3:25 PM CS T documented as of this encounter
--- OUTSIDE RECORDS SUMMARY | 2022-08-16 21:35 | XMS_ITS | Encounter Summary ---
:1985 Author Organization [facility] Address [address] [place] [address] Care Team Providers Name Role Phone Unavailable Primary Care Provider Unavailable Encounter Details Date Type Department Care Team Description 06/11/2012 Hospital Encounter HX [facility] FAMILY[facility] Karen Dial i, M.D. [address] [place] [address] (Wo rk) Social History Tobacco [...] do you attend buddhist or Never 2021 mosque services? Do you [...] Sign Reading Time Taken Comments Blood Pressure 100/58 06/11/2012 12:04 PM CDT Pulse 80 06/11/2012 12:04 PM CDT Temperature - - Respiratory Rate 16 06/11/2012 12:04 PM CDT Oxygen Saturation - - Inhaled Oxygen Concentration - - Weight - - Height - - Body Mass Index - - documented in this encounter Progress Notes Karen Steinberg M.D. - 06/11/2012 12:00 AM CDT [id number] CHIEF COMPLAINT/REASON FOR VISIT Finger swelling HISTORY OF PRESENT ILLNESS 1. Keily has noted that on her left hand the first knuckle is swollen. It is quite tender to the touch. She has not had any injury. She has not had fevers, chills, runny nose, earache, sore throat, cough or skin lesion. She did have mildly elevated white blood cell count that her physical recently. 2. She had been having chest pain with pleurisy recently. Z-Gilbert was ordered times two. 3. She had an echocardiogram recently due to family history of idiopathic cardiomyopathy. CURRENT MEDICATIONS Reviewed and are as outlined in the EMR VITAL SIGNS TEMPERATURE 36.0, RESPIRATIONS 16 PULSE 80 BLOOD PRESSURE 100/58. PHYSICAL EXAMINATION EXTREMITIES: She has moderate swelling of the left fifth finger PIP joint. She has difficulty with active range of motion at this joint as it is painful. Tender to the touch. X-ray shows no bony abnormality in this area. IMPRESSION/REPORT/PLAN 1. Isolated swollen joint. This may represent parvovirus. I have checked sed rate rheumatoid factor, LESIA and parvovirus titer. 2. Elevated white count. Will check her CBC today Karen Reyes M.D./yovani Electronically Signed By: KAREN REYES MD On: 06/25/2012 01:19 PM Source: [facility] MHSDOLBEYNONRADSYS Document Id: [id number] documented in this encounter Miscellaneous Notes Miscellaneous - Karen Steinberg M.D. - 06/11/2012 7:50 PM CDT Ambulatory Patient Summary [address] [address] Visit Information Name: KEILY NG Current Date: 06/11/2012 19:50:43 Physicians Attending Provider: KAREN REYES MD Primary Care Provider: KAREN REYES MD Your Medications Here is a list of your medications. It is important to take your medications as directed. Use a pillbox or chart to help remind you to take your medications. Please let your doctor or nurse know if you have problems taking your medications. Medication/Strength Dose Route Frequency Indications/Special Instructions/Comments norelgestromin-ethinyl estradiol (Ortho Evra 150 mcg-20 mcg/24 [...] No Appointments found Your Goals/Additional instructions: Source: [facility] POWERCHART Document Id: [id number] Miscellaneous - Karen Steinberg M.D. - 06/11/2012 7:50 PM CDT Ambulatory Depart Summary [address] [address] Visit Information Name: KEILY NG Visit Date: 06/11/2012 19:50:42 Attending Provider: KAREN REYES MD Primary Care Provider: KAREN REYES MD ANYA KEILYCRISTHIAN TURPIN has been given the following list of medications: Your Medications It is important to take your medications as directed. Use a pill box or chart to help remind you to take your medications. Please let your doctor or nurse know if you have problems taking your medications. Medication/Strength Dose Route Frequency Indications/Special Instructions/Comments norelgestromin-ethinyl estradiol (Ortho Evra 150 mcg-20 mcg/24 [...] your provider for clarification. Additional Information: Source: [facility] POWERCHART Document Id: [id number] Miscellaneous - Conversion, Historical Provider Ser - 06/11/2012 12:04 PM CDT Adult Histopathologist Intake/History Adult Histopathologist Intake/History Entered On: 06/11/2012 12:06 CDT Performed On: 06/11/2012 12:04 CDT by LEORA MALONEY LPN Intake Chief Complaint : recheck labss, also left hand pain Temperature Core : 36.0C(Converted to: 96.8DegF) (LOW) Peripheral Pulse Rate : 80/min Respiratory Rate : 16/min Systolic Blood Pressure : 100mmHg Diastolic Blood Pressure : 58mmHg NIBP Mean : 72mmHg BP Location : Left upper extremity Blood Pressure Cuff Size : Regular LEORA MALONEY [facility] - 06/11/2012 12:04 CDT Subjective Pain Symptoms : Yes LEORA MALONEY [facility] - 06/11/2012 12:04 CDT Pain Pain Assessment Grid Pain 1 Location : Hand Laterality : Left LEORA MALONEY [facility] 06/11/2012 12:04 CDT Dependent Habits Tobacco Use/Currently Using : No Tobacco Use/Last 12 months : No Exposure to Tobacco Smoke : Other: former- quit 2009 Smoking Status : Former smoker LEORA MALONEY [facility] 06/11/2012 12:04 CDT Tobacco Use Grid Type : Cigarettes Other Tobacco Frequency : non Last Use : 04/2010 LEORA MALONEY [facility] 06/11/2012 12:04 CDT Caffeine Use Grid Caffeine Use : None LEORA MALONEY [facility] 06/11/2012 12:04 CDT Recreational Drug Use Grid Drug Use : None LEORA MALONEY [facility] - 06/11/2012 12:04 CDT Allergy Allergies (Active) NKA Estimated Onset Date: Unspecified ; Created By: DUSTY CLEMONS; Reaction Status: Active ; Category: Drug ; Substance: NKA ; Type: Allergy ; Updated By: DUSTY CLEMONS; Reviewed Date: 06/11/2012 12:04 CDT Source: [facility] Vyopta Document Id: [id number] documented in this encounter Plan of Treatment Upcoming Encounters Date Type Specialty Care Team Description 08/30/2022 Clinical Communication Admitting/Central Scheduling 09/02/2022 Comprehensive Visit Endocrinology Ricardo Winkler APRN, C.N.P., D.N.P. [address] [place] [phone] documented as of this encounter Procedures Procedure Name Priority Date/Time Associated Comments Diagnosis PARVOVIRUS B19 AB, IGG Routine 06/11/2012 12:44 R esults for this AND IGM PM CDT procedure are i n the results section. RHEUMATOID FACTOR, S/P Routine 06/11/2012 12:44 R esults for this PM CDT procedure are i n the results section. ANTINUCLEAR ABS (LESIA), Routine 06/11/2012 12:44 R esults for this S PM CDT procedure are i n the results section. COMPREHENSIVE Routine 06/11/2012 12:44 Results fo r this METABOLIC PANEL, S/P PM CDT procedu re are in the results section. DX HAND LEFT 3+ VIEWS Routine 06/11/2012 11:52 Re sults for this AM CDT procedure are i n the results section. documented in this encounter Results Parvovirus B19 Ab, IgG and IgM (06/11/2012 12:44 PM CDT) athologist Signature Parvovirus B19 5.42 <0.90 POWERCHART Ab, IgG, S INDEX Comment: Positive Parvovirus B19 Ab, IgM, S 0.08 <0.90 INDEX PO WERCHART Comment: Negative HXParvo B19 [facility] See Comment POWER CHART Comment: RESULT: Results suggest past infection. Test Performed by: [place] [address] Grocery Caddy: Andi hitchcock III, M.D. Specimen (Source) Anatomical Collection Method Collection Time Re ceived Time Location / / Volume Laterality Blood 06/11/2012 12:44 PM CDT Karen Reyes M.D. LAB MICROBIOLOGY - BLO OD ORDERABLES Performing Organization Address City/State/ZIP Code Phon e Number POWERCHART LESIA (Antinuclear Antibodies) (06/11/2012 12:44 PM CDT) athologist Signature Antinuclear Ab 0.4 <=1.0 POWERCHART Screen by IFA, S (Negative) UNITS Comment: Test Performed by: [place] [address] Grocery Caddy: Andi hitchcock III, M.D. Specimen (Source) Anatomical Collection Method Collection Time Re ceived Time Location / / Volume Laterality Blood 06/11/2012 12:44 PM CDT Karen Reyes M.D. LAB BLOOD ADD-ON Performing Organization Address City/State/ZIP Code Phon e Number POWERCHART Rheumatoid Factor (06/11/2012 12:44 PM CDT) P athologist Signature Rheumatoid <15 <15 INTUML POWERCHART Factor, S Comment: Test Performed by: [address] [address] Grocery Caddy: Andi hitchcock III, M.D. Specimen (Source) Anatomical Collection Method Collection Time Re ceived Time Location / / Volume Laterality Blood 06/11/2012 12:44 PM CDT Karen Reyes M.D. LAB BLOOD ADD-ON Performing Organization Address City/State/ZIP Code Phon e Number POWERCHART (ABNORMAL) CMP (Comprehensive Metabolic Panel) (06/11/2012 12:44 PM CDT) Patholo gist Method Time Signature BUN (Blood Urea 10 6 - 20 POWERCHART Nitrogen), S MGDL Creatinine 0.6 (L) 0.7 - 1.2 POWERCHART MGDL Potassium, S 4.3 3.5 - 4.8 POWERCHART MMOLL Sodium, S 138 135 - 145 POWERCHART MMOLL Chloride, S 103 100 - 108 POWERCHART MMOLL CO2 Total 26 22 - 29 POWERCHART MMOLL Calcium, Total, S 9.0 8.5 - POWERCHART 10.5 MGDL Albumin, S 3.9 3.5 - 5.0 POWERCHART GMDL Alkaline 77 50 - 130 POWERCHART Phosphatase, S UNITL Aspartate 14 8 - 43 POWERCHART Aminotransferase UNITL (AST), S Alanine 18 9 - 52 POWERCHART Amniotransferase, LD UNITL Bilirubin, Total, S 0.4 0.1 - 1.0 POWERCHART MGDL Total Protein, S 6.7 6.3 - 8.2 POWERCHART MGDL BUN/Creatinine Ratio 16 POWERCHAR T HXeGFR (MDRD) >60 MLMIN POWERCHART eGFR Black/ >60 MLMIN POWERCHART Romanian Glucose, Fasting, S 82 70 - 99 POWERCHART MGDL Specimen (Source) Anatomical Collection Method Collection Time Re ceived Time Location / / Volume Laterality Blood 06/11/2012 12:44 PM CDT Karen Reyes M.D. LAB BLOOD ADD-ON Performing Organization Address City/State/ZIP Code Phon e Number POWERCHART DX Hand Left 3+ Views (06/11/2012 11:52 AM CDT) Anatomical Region Laterality Modality Upper Extremity, Hand Left Radiographic Imagi ng Specimen (Source) Anatomical Collection Method Collection Time Re ceived Time Location / / Volume Laterality 06/11/2012 11:52 AM CDT Addenda Addendum by Provider, Efren Fisher n 06/11/2012 11:52 AM CDT RAD^^^OW XR Hand Left 3 or more views 06/11/2012 11:52:00 Addendum by Provider, Efren Fisher o n 06/11/2012 11:52 AM CDT RAD^^^MA XR HAND LEFT 3 OR MORE VIEWS 06/11/2012 11:52:00 Impressions 06/11/2012 12:13 PM CDT Negative left hand and wrist. Narrative 06/11/2012 12:13 PM CDT EXAM: XR Hand Left 3 or more views INDICATION: hand pain COMPARISON: None. FINDINGS: Soft tissues are unremarkable. Bone mineralization is normal. No fractures or destructive lesi ons are identified. Hand and wrist joint spaces are preserved. Procedure Note Rafiq Pina Jr., M.D. / Natalia Jesus M.D. - 04/16/2017 EXAM: XR Hand Left 3 or more views INDICATION: hand pain COMPARISON: None. FINDINGS: Soft tissues are unremarkable. Bone mineralization is normal. No fractures or destructive lesi ons are identified. Hand and wrist joint spaces are preserved. IMPRESSION: Negative left hand and wrist . Romina Smith R.T.(R), R.TAmaris(R)(M) IMG DIAGNOSTIC IM AGING PROCEDURES documented in this encounter Visit Diagnoses Not on filedocumented in this encounter Additional Health Concerns Assessment Noted Time PHQ-9 Depression Total Score: 13 10/22/2011 3:25 PM CS T documented as of this encounter
--- OUTSIDE RECORDS SUMMARY | 2022-08-16 21:35 | XMS_ITS | Encounter Summary ---
:1985 Author Organization [facility] Address [address] [place] [address] Care Team Providers Name Role Phone Unavailable Primary Care Provider Unavailable Encounter Details Date Type Department Care Team Description 10/04/2013 Hospital Encounter HX [facility] FAMILYPRA Kulwinder Solano P.A.-C. [address] [place] [address] (Wo rk) Social History Tobacco [...] do you attend tenriism or Never 2021 jain services? Do you [...] Sign Reading Time Taken Comments Blood Pressure 120/72 10/04/2013 12:37 PM AIRLINE LOUNGE RECEPTIONIST Pulse 88 10/04/2013 12:37 PM AIRLINE LOUNGE RECEPTIONIST Temperature - - Respiratory Rate 16 10/04/2013 12:37 PM AIRLINE LOUNGE RECEPTIONIST Oxygen Saturation - - Inhaled Oxygen Concentration - - Weight 65 kg (143 lb 4.8 oz) 10/04/2013 12:37 PM AIRLINE LOUNGE RECEPTIONIST Height 151 cm (4' 11.45) 10/04/2013 12:37 PM AIRLINE LOUNGE RECEPTIONIST Body Mass Index 28.51 10/04/2013 12:37 PM AIRLINE LOUNGE RECEPTIONIST documented in this encounter Progress Notes Svetlana Solano P.A.-C. - 10/04/2013 12:24 PM CST [id number] CHIEF COMPLAINT/REASON FOR VISIT Multiple things. Keily has a history of depression. She has a history of polycystic ovary disease. She has been gaining weight over the last month. She has some skin tags on her neck and she has had some headaches. She saw Dr. Jhonny Enriquez because of her polycystic ovary syndrome and she was startedon the Ortho Evra patch, but she says due to the expense she does know if she will be able to continue taking it. She says that over the last month her anxiety has been quite a bit worse, she does not really know why. She had been on citalopram in the past, as well as multiple other SSRIs, including Zoloft and Prozac. She stopped the citalopram because she really did not think it was helping her very much. She says that she has had increasing anxiety lately and this may be contributing to her headaches as well and also could be contributing to her weight gain. She has had her thyroid checked in [place] and it was normal. Vital signs are noted in the electronic medical record. In general, she appears in no acute distress. ENT: TMs no erythema. Throat no erythema. Neck: No lymphadenopathy. No thyroid masses. HEART: Regular rate and rhythm, no murmurs. LUNGS: Clear to auscultation. ABDOMEN: Soft and nontender to palpation. Eyes show pupils to be equal and round and reactive to light. IMPRESSION/REPORT/PLAN 1. Anxiety and depression. PLAN: Her PHQ-9 score today was 22. Certainly this is not well controlled. We are going to restart her on an antidepressant. We will use Wellbutrin. She has never taken this before. I think this is likely the main culprit for her symptoms. I am going to check a metabolic profile and a TSH today as well. I will notify when I get these results. We will have her come back to be seen in a month for a recheck of her symptoms. If her symptoms worsen in the meantime or if she has any thoughts of harming herself, she should be seen or go to the Emergency Room and she is in agreement with this plan. She says she has no thoughts of harming herself and would not do that because of her children. 2. Headache. Her headache is primarily like a band around her head. I think likely this is a tension headache secondary to her anxiety and depression. I am going to give her some Flexeril to try. She has tried some other medicines to see if they will help with her pain, but has not had much success. If her symptoms worsen or do not improve with this, she will let us know. Svetlana Solano PA-C/[place]ona Electronically Signed By: SVETLANA SOLANO PA-C On: 10/06/2013 09:35 AM Source: [facility] MHSDOLBEYNONRADSYS Document Id: [id number] INE LOUNGE RECEPTIONIST documented in this encounter Miscellaneous Notes Miscellaneous - Svetlana Solano P.A.-C. - 10/06/2013 9:43 AM CST Normal Results Letter 06 October 2013 KEILY NG [address] [place] [address] [id number] Dear KEILY NG, I am pleased to report that your results from the following diagnostic test(s) are normal. Please follow up with us as we discussed during your visit or sooner if you have any concerns. If you have questions or concerns, please do not hesitate to call our office. Result Name Current Result Normal Range Sodium Lvl (mmol/L) 142 10/04/2013 135 - 145 Potassium Lvl (mmol/L) 4.3 10/04/2013 3.5 - 4.8 Chloride (mmol/L) 104 10/04/2013 100 - 108 CO2 (mmol/L) 29 10/04/2013 22 - 30 Glucose Lvl 84 10/04/2013 Creatinine (mg/dL) (L) 0.6 10/04/2013 0.7 - 1.2 EGFR (MDRD) (mL/min) >60 10/04/2013 EGFR (MDRD) (mL/min) >60 10/04/2013 BUN (mg/dL) 16 10/04/2013 6 - 20 Calcium Lvl (mg/dL) 9.4 10/04/2013 8.5 - 10.5 TSH, Sensitive-Garcia (mIU/L) 3.7 10/04/2013 0.3-5.0 - Sincerely, SVETLANA SOLANO [address] [place] [address] Electronic Signature Electronically Signed By: SVETLANA SOLANO PA-C On: 06 October 2013 This document has images extracted. Source: [facility] POWERCHART Document Id: [id number] Miscellaneous - Lucinda Dwyer LAmarisP.N. - 10/05/2013 11:13 AM CST PHQ-9 Document Contains Addenda Addendum by LEORA MALONEY LPN on 24 Mar 2014 17:16:00 CDT appointment 03/25/14 From: LUCINDA DWYER LPN To: LEORA MALONEY LPN; Sent: 10/05/2013 11:13:58 AIRLINE LOUNGE RECEPTIONIST Show up: 03/05/2014 11:13:00 CDT Subject: PHQ-9 Due Date/Time: 04/03/2014 11:13:00 CDT Please Remember to: PHQ-9 due within 30 days of 04/03/2014. Can be done by phone. If patient scores 9or greater advise a follow up with provider. Please call and advise. PATIENT: ( x ) Call Patient ( ) Ask Patient to ( ) ( ) Call Relative ( ) Schedule Patient ( ) ( ) Call for Pharmacy Laboratory Technician ( ) Follow up on Results ( ) Other: PROVIDER: ( ) Call Physician ( ) Call Pharmacist ( ) Call Lab ( ) Other: Special Instructions: Comments: Source: [facility] Digital Music IndiaCHART Document Id: [id number] Miscellzoe - Pretty Avila, L.P.N. - 10/04/2013 2:31 PM CST PHQ-9 PHQ-9 Entered On: 10/04/2013 14:32 AIRLINE LOUNGE RECEPTIONIST Performed On: 10/04/2013 14:31 AIRLINE LOUNGE RECEPTIONIST by PRETTY AVILA PHQ-9 Little interest or pleasure in doing things : Nearly every day Feeling down, depressed, or hopeless : More than half the days Trouble falling or staying asleep, or sleeping too much : Nearly every day Feeling tired or having little energy : Nearly every day Poor appetite or overeating : Nearly every day Feeling bad about yourself or that you are a failure : More than half the days Trouble concentrating on things : Nearly every day Moving or speaking slowly; restless or fidgety : More than half the days Thoughts that you would be better off /hurting self : Several days PHQ-9 Calculated Score : 22 PRETTY AVILA - 10/04/2013 14:31 AIRLINE LOUNGE RECEPTIONIST Source: [facility] [employer]CHART Document Id: [id number] AIRLINE LOUNGE RECEPTIONIST!12 INE LOUNGE RECEPTIONIST Nikhil - Pretty Avila, L.P.N. - 10/04/2013 12:37 PM CST Adult Clinical Courier Intake/History Adult Clinical Courier Intake/History Entered On: 10/04/2013 12:41 AIRLINE LOUNGE RECEPTIONIST Performed On: 10/04/2013 12:37 AIRLINE LOUNGE RECEPTIONIST by PRETTY AVILA Intake Temperature Core : 36.4 DegC(Converted to: 97.5 DegF) (LOW) PRETTY AVILA - 10/04/2013 12:43 AIRLINE LOUNGE RECEPTIONIST Chief Complaint : continuous headache for 8 days,wt., and anxiety .. Peripheral Pulse Rate : 88 /min Respiratory Rate : 16 /min Systolic Blood Pressure : 120 mmHg Diastolic Blood Pressure : 72 mmHg NIBP Mean : 88 mmHg BP Location : Left upper extremity Blood Pressure Cuff Size : Regular Height : 151 cm(Converted to: 4 ft 11 inch(es), 59.45 inch(es)) Actual Weight : 65 kg(Converted to: 143 lb 5 oz) Weight Source : Standing scale Dosing Weight Clinic : 65 kg Clinic BSA : 1.65 Body Mass Index : 28.51 kg/m2 PRETTY AVILA - 10/04/2013 12:37 AIRLINE LOUNGE RECEPTIONIST General Info Information Given By : Patient Languages : Qatari PRETTY AVILA - 10/04/2013 12:37 AIRLINE LOUNGE RECEPTIONIST Subjective Pain Symptoms : No PRETTY AVILA - 10/04/2013 12:37 AIRLINE LOUNGE RECEPTIONIST Dependent Habits Tobacco Use/Currently Using : No Exposure to Tobacco Smoke : Patient smokes Smoking Status : Current every day smoker PRETTY AVILA - 10/04/2013 12:37 AIRLINE LOUNGE RECEPTIONIST Tobacco Use Grid Type : Cigarettes Cigarette Use Packs/Day : 0.3 PRETTY AVILA 10/04/2013 12:37 AIRLINE LOUNGE RECEPTIONIST Caffeine Use Grid Caffeine Use : None PRETTY AVILA 10/04/2013 12:37 AIRLINE LOUNGE RECEPTIONIST Recreational Drug Use Grid Drug Use : None PRETTY AVILA 10/04/2013 12:37 AIRLINE LOUNGE RECEPTIONIST Source: [facility] POWERCHART Document Id: [id number] AIRLINE LOUNGE RECEPTIONIST!3 INE LOUNGE RECEPTIONIST documented in this encounter Plan of Treatment Upcoming Encounters Date Type Specialty Care Team Description 08/30/2022 Clinical Communication Admitting/Central Scheduling 09/02/2022 Comprehensive Visit Endocrinology Ricardo Winkler APRN, C.N.P., MelitaN.P. [address] [place] [phone] documented as of this encounter Procedures Procedure Name Priority Date/Time Associated Diagnosis Comme nts THYROID FUNCTION Routine 10/04/2013 1:11 PM Resul ts for this CASCADE, S AIRLINE LOUNGE RECEPTIONIST procedure are i n the results section. BASIC METABOLIC Routine 10/04/2013 1:11 PM Result s for this PANEL, S/P AIRLINE LOUNGE RECEPTIONIST procedure are i n the results section. documented in this encounter Results Thyroid Function Keya Paha (10/04/2013 1:11 PM AIRLINE LOUNGE RECEPTIONIST) athologist Signature TSH, Sensitive 3.7 0.3 - 5.0 POWERCHART MIUL Comment: Test Performed by: [address] [address] Reinstatement Clerk: Andi hitchcock III, M.D. Specimen (Source) Anatomical Collection Method Collection Time Re ceived Time Location / / Volume Laterality Blood 10/04/2013 1:11 PM AIRLINE LOUNGE RECEPTIONIST Svetlana Solano P.A.-C. LAB BLOOD ADD-ON Performing Organization Address City/State/ZIP Code Phon e Number POWERCHART (ABNORMAL) BMP (Basic Metabolic Panel) (10/04/2013 1:11 PM AIRLINE LOUNGE RECEPTIONIST) athologist Signature BUN (Blood Urea 16 6 - 20 POWERCHART Nitrogen), S MGDL Creatinine 0.6 (L) 0.7 - 1.2 POWERCHART MGDL Glucose 84 POWERCHART Potassium, S 4.3 3.5 - 4.8 POWERCHART MMOLL Sodium, S 142 135 - 145 POWERCHART MMOLL Chloride, S 104 100 - 108 POWERCHART MMOLL CO2 Total 29 22 - 30 POWERCHART MMOLL Calcium, Total, 9.4 8.5 - 10.5 POWERCHART S MGDL HXeGFR (MDRD) >60 MLMIN POWERCHART eGFR >60 MLMIN POWERCHART Black/ Specimen (Source) Anatomical Collection Method Collection Time Re ceived Time Location / / Volume Laterality Blood 10/04/2013 1:11 PM AIRLINE LOUNGE RECEPTIONIST Svetlana Solano P.A.-C. LAB BLOOD ADD-ON Performing Organization Address City/State/ZIP Code Phon e Number POWERCHART documented in this encounter Visit Diagnoses Not on filedocumented in this encounter Additional Health Concerns Assessment Noted Time PHQ-9 Depression Total Score: 22 10/04/2013 2:31 PM CS T documented as of this encounter
--- OUTSIDE RECORDS SUMMARY | 2022-08-16 21:35 | XMS_ITS | Encounter Summary ---
:1985 Author Organization [facility] Address [address] [place] [address] Care Team Providers Name Role Phone Unavailable Primary Care Provider Unavailable Encounter Details Date Type Department Care Team Description 10/08/2010 Hospital Encounter HX [facility] Narinder De [...] do you attend pentecostalism or Never 2021 alevism services? Do you belong to any clubs [...] encounter Progress Notes Narinder Enriquez M.D. - 10/08/2010 12:00 AM CST [id number] CHIEF COMPLAINT/ REASON FOR VISIT Routine OB visit. HISTORY OF PRESENT ILLNESS This patient is a 24-year-old G5, P 2-0-2-2 female with unknown LMP. Her EDC is 12/03/2010 set by 7-week ultrasound. The patient is now 32-0/7 weeks. Patient presents for routine OB visit. She is doing well. She has no complaints. She reports good movement. No leaking fluid, vaginal bleeding. No cramping or contractions. No headaches, vision changes. No vaginal bleeding. No depression. CURRENT MEDICATIONS Generic vitamins one p.o. daily ALLERGIES No known drug allergies VITAL SIGNS Weight 65.8 kg, blood pressure 94/50. PHYSICAL EXAM GENERAL: Well developed, well nourished gravid female in no apparent distress. Alert and oriented times 3. Normal affect. ABDOMEN: Gravid, soft and nontender. Fundal height 32 cm, positive heart tones 140. Vertex presentation by Ky's. EXTREMITIES: No edema or tenderness. IMPRESSION/REPORT/PLAN 1. Intrauterine at 32-0/7 weeks. Positive cardiac activity. 2. EDC is 12/03/2010 set by 7-week ultrasound. 3. Elevated diabetic screen with normal 3-hour GTT 4. History of depression and bipolar disorder, currently asymptomatic on no medication 5. History of tobacco abuse. Patient quit smoking March 2010 6. History of polycystic ovarian syndrome, currently asymptomatic on no medications Plan 1. I reviewed the 3-hour GTT results with the patient. She has a normal 2-hour and 3-hour result with an elevated fasting and 1 hour. I discussed this with the patient as being normal finding because of the elevated fasting and 1-hour, I discussed checking Accu-Cheks and starting ADA diet. Patient declines. 2. Return to clinic in 2 weeks for OB visit or be seen sooner PRN. 3. Routine OB precautions, recommendations, and instructions are reviewed with the patient including movement and kick counts. 4. Encouraged patient to start ADA diet LAB 09/06/2010 diabetic screen 180. 09/21/2010 3-hour GTT 96, 198, 147, 111. JTS/mgd Signed Narinder Enriquez M.D. Obstetrics & Gynecology Electronically Signed By:NARINDER ENRIQUEZ MD On 10/10/2010 09:15 AM Source: [facility] MHSDOLBEYNONRADSYS Document Id: [id number] TATION TECHNICIAN documented in this encounter Miscellaneous Notes Miscellaneous - Narinder Enriquez M.D. - 10/08/2010 2:29 PM [place] [address] Visit Information Name: SAMUEL NG Current Date: 10/08/2010 14:29:24 Primary Care Provider: KAREN REYES MD [id number] Your Medications Here is a list of [...] Lipid Panel every 5 years Age 20-75 10/08/2010 Checks blood for good (HDL) and bad (LDL) cholesterol. Know your numbers, they are one indicator of your risk for heart attack and stroke. Vaccine: Tetanus every 10 years 12/29/2009 12/27/2019 Immunization to help prevent you from getting the serious disease Tetanus (Lockjaw). Your Upcoming Appointments Date Time Location Reason Provider No Appointments found Your Goals/Additional instructions: Source: [facility] Simpli.fiCHART Document Id: [id number] Electronically signed by Conversion, [facility] Prospecting Driller Helper [id number] at 04/28/2017 4:46 AM CDT Nikhil - Narinder Enriquez M.D. - 10/08/2010 2:29 PM CST [place] [address] Visit Information Name: SAMUEL NG Current Date: 10/08/2010 14:29:24 Primary Care Provider: KAREN REYES MD [id number] SAMUEL NG has been given the following [...] to the patient and/or family, guardian/caregiver. Source: [facility] POWERCHART Document Id: [id number] Electronically signed by Conversion, [facility] Prospecting Driller Helper [id number] at 04/28/2017 4:46 AM CDT Miscellaneous - Wendi, Historical Provider Ser - 10/08/2010 2:14 PM SUBSTATION TECHNICIAN Adult Readers' Advisory Service Librarian Intake/History Adult Readers' Advisory Service Librarian Intake/History Entered On: 10/08/2010 14:15 SUBSTATION TECHNICIAN Performed On: 10/08/2010 14:14 SUBSTATION TECHNICIAN by KISHAN HOLLINGSWORTH LPN Intake Chief Complaint: OB check @ 32 LMP Date: 02-26-10 Systolic Blood Pressure: 94mmHg Diastolic Blood Pressure: 50mmHg (LOW) NIBP Mean: 65mmHg BP Location: Right upper extremity Heart Rhythm: Regular Oxygen Therapy: Room air Actual Weight: 65.800kg(Converted to: 145lb 1oz) Dosing Weight Clinic: 65.80kg KISHAN HOLLINGSWORTH LPN - 10/08/2010 14:14 SUBSTATION TECHNICIAN Subjective Pain Symptoms: No KISHAN HOLLINGSWORTH LPN - 10/08/2010 14:14 SUBSTATION TECHNICIAN Dependent Habits Tobacco Use/Currently Using: No KISHAN HOLLINGSWORTH LPN - 10/08/2010 14:14 SUBSTATION TECHNICIAN Tobacco Use Grid Type: Cigarettes KISHAN HOLLINGSWORTH LPN - 10/08/2010 14:14 SUBSTATION TECHNICIAN Allergies Allergies (Active) NKA Estimated Onset Date: Unspecified ; Created By: DUSTY CLEMONS; Reaction Status: Active ; Category: Drug ; Substance: NKA ; Type: Allergy ; Updated By: DUSTY CLEMONS; Reviewed Date: 10/08/2010 14:13 SUBSTATION TECHNICIAN Source: [facility] POWERCHART Document Id: [id number] SUBSTATION TECHNICIAN!19 documented in this encounter Plan of Treatment Upcoming Encounters Date Type Specialty Care Team Description 08/30/2022 Clinical Communication Admitting/Central Scheduling 09/02/2022 Comprehensive Visit Endocrinology Ricardo Winkler APRN, C.N.P., D.N.P. [address] [place] [phone] documented as of this encounter Visit Diagnoses Not on filedocumented in this encounter
--- OUTSIDE RECORDS SUMMARY | 2022-08-16 21:35 | XMS_ITS | Encounter Summary ---
:1985 Author Organization [facility] Address [address] [place] [address] Care Team Providers Name Role Phone Unavailable Primary Care Provider Unavailable Encounter Details Date Type Department Care Team Description 04/18/2011 Hospital Encounter HX [facility] Karen Dial i, M.D. [address] [place] [address] (Wo rk) Social History Tobacco [...] do you attend voodoo or Never 2021 synagogue services? Do you [...] as of this encounter Progress Notes Karen Steinberg M.D. - 04/18/2011 12:00 AM CDT [id number] CHIEF COMPLAINT/REASON FOR VISIT Headache, sinus drainage and pressure HISTORY OF PRESENT ILLNESS Keily has had green nasal discharge with sinus pain and pressure and cough over the past several days. She has felt feverish without documented fever. CURRENT MEDICATIONS Medications are reviewed and are as outlined in the EMR including the addition of Ceftin 500 milligrams twice daily x10 days. VITAL SIGNS TEMPERATURE: 36.5 RESPIRATIONS: 16 PULSE: 72 BLOOD PRESSURE: 100/70 PHYSICAL EXAM GENERAL: She appears mildly ill. ENT: Her tympanic membranes are both normal. The nasal mucosa is slightly erythematous. She has tenderness over both maxillary sinuses. Oropharynx is without erythema, exudate or tonsillar enlargement. LYMPH NODES: Neck is without adenopathy. LUNGS: Lungs are clear without wheeze, crackle or rhonchus. HEART: Heart is regular rate and rhythm. IMPRESSION/REPORT/PLAN Sinusitis. Prescription is given for Ceftin as outlined in the EMR. Other symptomatic measures. Follow up if no improvement or with worsening symptoms. REYNAF/glt Signed Karen Reyes M.D. Family Medicine Electronically Signed By: KAREN REYES MD On: 07/04/2011 08:44 PM Source: [facility] MHSDOLBEYNALLISONSYS Document Id: [id number] documented in this encounter Miscellaneous Notes Miscellaneous - Conversion, Historical Provider Ser - 04/18/2011 11:16 AM CDT Advance Directive Advance Directive Entered On: 04/18/2011 11:16 CDT Performed On: 04/18/2011 11:16 CDT by LEORA MALONEY LPN Advance Directive Advanced Directives: No LEORA MALONEY EVELYN PIRES - 04/18/2011 11:16 CDT Source: [facility] POWERCHART Document Id: [id number] CDT!3 Miscellaneous - Conversion, Historical Provider Ser - 04/18/2011 11:14 AM CDT Adult Chocolate Temperer Intake/History Adult Chocolate Temperer Intake/History Entered On: 04/18/2011 11:16 CDT Performed On: 04/18/2011 11:14 CDT by LEORA MALONEY LPN Intake Chief Complaint: sinus infection Temperature Core: 36.5C(Converted to: 97.7DegF) Peripheral Pulse Rate: 72/min Respiratory Rate: 16/min Systolic Blood Pressure: 100mmHg Diastolic Blood Pressure: 70mmHg NIBP Mean: 80mmHg BP Location: Left upper extremity PRAVEEN LEORA GLYNN VEELYN [facility] - 04/18/2011 11:14 CDT Subjective Pain Symptoms: Yes LEORA MALONEY EVELYN PATENT PROSECUTION ATTORNEY - 04/18/2011 11:14 CDT Pain Pain Assessment Grid Pain 1 Location: Head PRAVEEN LEORA GLYNN EVELYN [facility] - 04/18/2011 11:14 CDT Dependent Habits Tobacco Use/Currently Using: No Tobacco Use/Last 12 months: No PRAVEEN GRETTAJOSELEORAJONEL RIVAS LPN - 04/18/2011 11:14 CDT Tobacco Use Grid Type: Cigarettes Other Tobacco Frequency: non LEORA MALONEY EVELYN [facility] - 04/18/2011 11:14 CDT Caffeine Use Grid Caffeine Use: None PRAVEEN GRETTAGARCÍALEORACODEY RIVAS LPN - 04/18/2011 11:14 CDT Recreational Drug Use Grid Drug Use: None LEORA MALONEY EVELYN [facility] - 04/18/2011 11:14 CDT Allergy Allergies (Active) NKA Estimated Onset Date: Unspecified ; Created By: DUSTY CLEMONS Reaction Status: Active ; Category: Drug ; Substance: NKA ; Type: Allergy ; Updated By: DUSTY CLEMONS; Reviewed Date: 02/11/2011 13:32 CDT Source: [facility] POWERCHART Document Id: [id number] CDT!29 documented in this encounter Plan of Treatment Upcoming Encounters Date Type Specialty Care Team Description 08/30/2022 Clinical Communication Admitting/Central Scheduling 09/02/2022 Comprehensive Visit Endocrinology Ricardo Winkler, SILVIO, C.N.P., D.N.P. [address] [place] [address] documented as of this encounter Visit Diagnoses Not on filedocumented in this encounter Additional Health Concerns Assessment Noted Time PHQ-9 Depression Total Score: 5 12/13/2010 11:47 AM CS T documented as of this encounter
--- OUTSIDE RECORDS SUMMARY | 2022-08-16 21:35 | XMS_ITS | Encounter Summary ---
:1985 Author Organization [facility] Address [address] [place] [address] Care Team Providers Name Role Phone Unavailable Primary Care Provider Unavailable Encounter Details Date Type Department Care Team Description 03/11/2012 Hospital Encounter HX [facility]ILY[facility] Kulwinder Solano P.A.-C. [address] [place] [address] (Wo rk) Social History Tobacco [...] do you attend buddhist or Never 2021 presybeterian services? Do you [...] Sign Reading Time Taken Comments Blood Pressure 92/60 03/11/2012 9:42 AM CDT Pulse 72 03/11/2012 9:42 AM CDT Temperature - - Respiratory Rate 16 03/11/2012 9:42 AM CDT Oxygen Saturation - - Inhaled Oxygen Concentration - - Weight 67 kg (147 lb 11.3 oz) 03/11/2012 9:42 AM CDT Height 152 cm (4' 11.84) 03/11/2012 9:42 AM CDT Body Mass Index 29 03/11/2012 9:42 AM CDT documented in this encounter Progress Notes Svetlana Solano P.A.-C. - 03/11/2012 12:00 AM CDT [id number] CHIEF COMPLAINT/ REASON FOR VISIT Cough HISTORY OF PRESENT ILLNESS Ayaz is a 26 year old female who has had a cough now for about the last month. She was seen by Dr. Reyes recently and treated with prednisone. Her cough has persisted. She feels as though her cough is not getting better. She has a production of greenish colored sputum. She says her symptoms have lasted for at least a month or two. She was on Zithromax times 2, one by Ness and one by Dr. Reyes and she cannot seem to get rid of her symptoms. She is not around any smokers. She does not smoke anymore. She has not had any other exposures that she is aware of. She has never had asbestos exposure. She had one time where she coughed up a few flecks of blood and she actually took a picture of this and showed it to me on her phone today. She says she feels short of breath if she exerts himself too much. Her dad has a history of familial cardiomyopathy and she has had echocardiograms in the past and according to the patient that have been normal. She has not any swelling in her legs. VITAL SIGNS Vitals noted in the electronic medical record. Oxygen saturation is good at 99%. PHYSICAL EXAM GENERAL: She appears in no acute distress. She does have a dry sounding cough. ENT: TMs no erythema. Throat no erythema. NECK: No lymphadenopathy. HEART: Regular rate and rhythm no murmurs. LUNGS: Clear to auscultation. No tenderness to compression of her chest wall. IMPRESSION/REPORT/PLAN 1. Cough. I obtained a chest x-ray today that was negative. I told her that her cough symptoms could possibly be secondary to a resistant bacteria that has lasted a month that may have been resistant to Zithromax. We could try treating her with a broader spectrum antibiotic such as Levaquin. Otherwise we could look at other causes of chronic cough including postnasal drip, esophageal reflux or asthma. She does not really have any symptoms of any of these so for now we will treat her with Levaquin 500 milligrams once daily for 10 days. She says that her symptoms have improved a little bit on the prednisone or at least it seems to have loosened things up. I encouraged her to push fluids. I also gave her some Robitussin with codeine because this helped her in the past. If her symptoms worsen or do not improve with this therapy she will let us know otherwise follow up as needed. TLR/mgd Signed RUBEN Solano [facility] Electronically Signed By: SVETLANA SOLANO PA-C On: 03/13/2012 01:18 PM Source: [facility] MHSDOLBEYNONRADSYS Document Id: [id number] documented in this encounter Miscellaneous Notes Telephone Encounter - Pretty Avila, LAmarisP.N. - 05/18/2012 10:30 AM CDT Phone Message Document Contains Addenda Addendum by PRETTY AVILA on 18 May 2012 13:37:44 CDT done Addendum by KAREN REYES MD on 18 May 2012 12:18:57 CDT From: KAREN REYES MD To: PRETTY AVILA; Sent: 05/18/2012 12:18:57 CDT Subject: RE: Phone Message double book my 1:30 tomorrow From: PRETTY AVILA To: KAREN REYES MD; Sent: 05/18/2012 10:30:15 CDT Subject: Phone Message Caller is: ( ayaz ) Patient ( ) Mother ( ) Father ( ) Spouse ( ) Daughter ( ) Son ( ) Pharmacy ( )Other: Physician: Patient MRN #: Reason for Call: left msg questioning if she could get in to see you for a pap (is due) today or tomorrow? she can see Myrom tomorrow but would prefer getting in with you. [phone] Message: Advice/Action: Source used: ( ) Verbalizes [...] back cell phone number ( ) Source: [facility] POWERCHART Document Id: [id number] Electronically signed by Wendi [facility] [employer] Back Liner [id number] at 04/27/2017 7:29 AM CDT Miscellaneous - Svetlana Solano P.A.-C. - 03/11/2012 11:10 AM CDT Ambulatory Patient Summary [address] [address] Visit Information Name: AYAZ NG Current Date: 03/11/2012 11:10:36 Physicians Attending Provider: SVETLANA SOLANO PA-C Primary Care Provider: KAREN REYES MD Your Medications Here is a list of your medications. It is important to take your medications as directed. Use a pillbox or chart to help remind you to take your medications. Please let your doctor or nurse know if you have problems taking your medications. Medication/Strength Dose Route Frequency Indications/Special Instructions/Comments codeine-guaifenesin (codeine-guaifenesin 10 mg-100 mg/5 ml oral syrup) 10 mL Oral every 4 hours levofloxacin (Levaquin 500 mg oral tablet) 500 mg Oral once a day for 10 Days citalopram (citalopram 20 mg oral tablet) [...] No Appointments found Your Goals/Additional instructions: Source: [facility] POWERCHART Document Id: [id number] Miscellaneous - Svetlana Solano P.A.-C. - 03/11/2012 11:10 AM CDT Ambulatory Depart Summary [address] [address] Visit Information Name: AYAZ NG Visit Date: 03/11/2012 11:10:35 Attending Provider: SVETLANA SOLANO PA-C Primary Care Provider: KAREN REYES MD AYAZ NG has been given the following list of medications: Your Medications It is important to take your medications as directed. Use a pill box or chart to help remind you to take your medications. Please let your doctor or nurse know if you have problems taking your medications. Medication/Strength Dose Route Frequency Indications/Special Instructions/Comments codeine-guaifenesin (codeine-guaifenesin 10 mg-100 mg/5 ml oral syrup) 10 mL Oral every 4 hours levofloxacin (Levaquin 500 mg oral tablet) 500 mg Oral once a day for 10 Days citalopram (citalopram 20 mg oral tablet) 20 mg Oral once a day Attention: If you have any medications at home that are not on this list, DO NOT take them until youcontact your provider for clarification. Additional Information: Source: [facility] [employer] Document Id: [id number] Pretty Villaseñor L.P.N. - 03/11/2012 9:46 AM CDT Ambulatory Vitals Height Weight Ambulatory Vitals Height Weight Entered On: 03/11/2012 9:46 CDT Performed On: 03/11/2012 9:46 CDT by PRETTY AVILA Vitals/Ht/Wt SpO2 : 99% PRETTY AVILA - 03/11/2012 9:46 CDT Source: [facility] [employer] Document Id: [id number] CDT!3 Nikhil - Pretty Avila L.P.N. - 03/11/2012 9:42 AM CDT Adult Movie Extra Intake/History Adult Movie Extra Intake/History Entered On: 03/11/2012 9:46 CDT Performed On: 03/11/2012 9:42 CDT by PRETTY AVILA Intake Chief Complaint : coughing up traces of blood and body aches Temperature Core : 36.5C(Converted to: 97.7DegF) Peripheral Pulse Rate : 72/min Respiratory Rate : 16/min Systolic Blood Pressure : 92mmHg Diastolic Blood Pressure : 60mmHg NIBP Mean : 71mmHg BP Location : Left upper extremity Blood Pressure Cuff Size : Regular Height : 152cm(Converted to: 5ft 0inch(es), 59.84inch(es)) Actual Weight : 67kg(Converted to: 147lb 11oz) Weight Source : Standing scale Dosing Weight Clinic : 67.00kg Clinic BSA : 1.68 Body Mass Index : 29.00kg/m2 PRETTY AVILA 03/11/2012 9:42 CDT Subjective Pain Symptoms : Yes PRETTY AVILA 03/11/2012 9:42 CDT Pain Pain Assessment Grid Pain 1 Location : Other: lungs PRETTY AVILA 03/11/2012 9:42 CDT Dependent Habits Tobacco Use/Currently Using : No Exposure to Tobacco Smoke : Other: former- quit 2009 Smoking Status : Former smoker PRETTY AVILA 03/11/2012 9:42 CDT Tobacco Use Grid Type : Cigarettes Other Tobacco Frequency : non PRETTY AVILA 03/11/2012 9:42 CDT Caffeine Use Grid Caffeine Use : None PRETTY AVILA 03/11/2012 9:42 CDT Recreational Drug Use Grid Drug Use : None PRETTY AVILA 03/11/2012 9:42 CDT Allergy Allergies (Active) NKA Estimated Onset Date: Unspecified ; Created By: DUSTY CLEMONS; Reaction Status: Active ; Category: Drug ; Substance: NKA ; Type: Allergy ; Updated By: DUSTY CLEMONS; Reviewed Date: 03/11/2012 9:41 CDT [facility] POWERCHART Document Id: [id number] CDT!37 documented in this encounter Plan of Treatment Upcoming Encounters Date Type Specialty Care Team Description 08/30/2022 Clinical Communication Admitting/Central Scheduling 09/02/2022 Comprehensive Visit Endocrinology Ricardo Winkler APRN, C.N.P., D.N.P. [address] [place] [address] documented as of this encounter Procedures Procedure Name Priority Date/Time Associated Diagnosis Comme nts DX CHEST AP OR PA Routine 03/11/2012 10:37 AM Res ults for this AND LATERAL 2 VIEWS CDT procedur e are in the results section. documented in this encounter Results DX Chest AP or PA and Lateral 2 Views (03/11/2012 10:37 AM CDT) Anatomical Region Laterality Modality Chest N/A Radiographic Imaging Specimen (Source) Anatomical Collection Method Collection Time Re ceived Time Location / / Volume Laterality 03/11/2012 10:37 AM CDT Addenda Addendum by Provider, Efren Fisher n 03/11/2012 10:37 AM CDT RAD^^^OW XR Chest 2 Views 03/11/2012 10:37:00 Addendum by Provider, Efren Fisher o n 03/11/2012 10:37 AM CDT RAD^^^MA XR CHEST 2 VIEWS 03/11/2012 10:37:00 Impressions 03/11/2012 10:51 AM CDT Negative chest x-rays. Narrative 03/11/2012 10:51 AM CDT EXAM: XR Chest 2 Views INDICATION: Cough, hemoptysis. COMPARISON: None. FINDINGS: Lung salgado and pleural spaces are clear on x-rays. ??Heart and mediastinal structures are normal. ??Bon y thorax and soft tissues appear to be currently intact (chronic p ossible mild lumbar dextroscoliosis vs. atypical positioning ). ??No vascular congestion. Procedure Note Jean Carlos Morin M.D. / ProviderJavan M.D. - 04/15/2017 EXAM: XR Chest 2 Views INDICATION: Cough, hemoptysis. COMPARISON: None. FINDINGS: Lung salgado and pleural spaces are clear on x-rays. Heart and mediastinal structures are normal. Bony thorax and soft tissues appear to be currently intact (chronic p ossible mild lumbar dextroscoliosis vs. atypical positioning ). No vascular congestion. IMPRESSION: Negative chest x-rays. Historical Provider IMG DIAGNOSTIC IMAGING PROCE DURES documented in this encounter Visit Diagnoses Not on filedocumented in this encounter Additional Health Concerns Assessment Noted Time PHQ-9 Depression Total Score: 13 10/22/2011 3:25 PM CS T documented as of this encounter
--- OUTSIDE RECORDS SUMMARY | 2022-08-16 21:35 | XMS_ITS | Encounter Summary ---
:1985 Author Organization [facility] Address [address] [place] [address] Care Team Providers Name Role Phone Unavailable Primary Care Provider Unavailable Encounter Details Date Type Department Care Team Description 06/11/2012 Hospital Encounter HX [facility] Yarelis Leon M.D. [address] [phone] (Wo rk) Social History [...] do you attend anabaptism or Never 2021 samaritan services? Do you [...] Ricardo Winkler, SILVIO, C.N.P., D.N.P. [address] [place] [phone] documented as of this encounter Procedures Procedure Name Priority Date/Time Associated Diagnosis Comme nts AUTOMATED Routine 06/11/2012 12:03 PM Results for this DIFFERENTIAL, B CDT procedure ar e in the results section. CBC WITH Routine 06/11/2012 12:03 PM Results for this DIFFERENTIAL, B CDT procedure ar e in the results section. documented in this encounter Results (ABNORMAL) Automated Differential (06/11/2012 12:03 PM CDT) P athologist Signature Neutro % 75.6 (H) 34.0 - POWERCHART 71.1 Lymphocytes % 17.7 (L) 19.3 - POWERCHART 51.7 HX Caroline % 4.2 (L) 4.7 - 12.5 POWERCHART HX Eos % 2.4 0.7 - 5.8 POWERCHART HX Baso % 0.1 0.1 - 1.2 POWERCHART Specimen Anatomical Collection Method Collection Time Receive d Time (Source) Location / / Volume Laterality Blood 06/11/2012 12:03 06/11/2012 PM CDT 12:03 PM CDT Yarelis Reyes M.D. LAB BLOOD ADD-ON Performing Organization Address City/State/ZIP Code Phon e Number POWERCHART (ABNORMAL) CBC with Differential (06/11/2012 12:03 PM CDT) Patholo gist Method Time Signature Leukocytes 16.3 (H) 3.4 - 10.5 POWERCHART X109L Erythrocytes 3.89 (L) 3.90 - POWERCHART 5.03 [id number] Hemoglobin 12.2 12.0 - POWERCHART 15.5 GDL Hematocrit 37.1 34.9 - POWERCHART 44.5 MCV 95.4 82.0 - POWERCHART 98.0 FL Platelet Count 394 150 - 450 POWERCHART X109L HX RDW 13.6 11.9 - POWERCHART 15.5 HXDifferential? Auto POWERCHART Specimen (Source) Anatomical Collection Method Collection Time Re ceived Time Location / / Volume Laterality Blood 06/11/2012 12:03 PM CDT Yarelis Reyes M.D. LAB BLOOD ADD-ON Performing Organization Address City/State/ZIP Code Phon e Number POWERCHART documented in this encounter Visit Diagnoses Not on filedocumented in this encounter Additional Health Concerns Assessment Noted Time PHQ-9 Depression Total Score: 13 10/22/2011 3:25 PM CS T documented as of this encounter
--- OUTSIDE RECORDS SUMMARY | 2022-08-16 21:35 | XMS_ITS | Encounter Summary ---
:1985 Author Organization [facility] Address [address] [place] [address] Care Team Providers Name Role Phone Unavailable Primary Care Provider Unavailable Encounter Details Date Type Department Care Team Description 08/07/2011 Hospital Encounter [facility]X [facility] Kulwinder Solano P.A.-C. [address] [place] [address] (Wo rk) Social History Tobacco [...] or relatives? How often do you attend caodaism or Never 2021 restorationist services? Do you belong to any clubs or No 01/25/2022 organizations such as caodaism groups, unions, fraternal or athletic groups, or [...] as of this encounter Progress Notes Svetlana Solano P.A.-C. - 08/07/2011 12:00 AM CDT [id number] CHIEF COMPLAINT/REASON FOR VISIT Left knee pain. HISTORY OF PRESENT ILLNESS Keily is a 25-year-old female who bumped her knee on her desk a couple days ago and has pain on the anterior aspect of her patella. She also fell while holding her child a few months ago and has pain on the medial aspect of her knee. VITAL SIGNS Vitals are noted in the EMR. PHYSICAL EXAM EXTREMITIES: Left knee: There is no erythema or swelling noted in her left knee. She has a small area that is palpable on the anterior aspect of her patella on more of the superior lateral aspect of her left patella. This area is tender to the touch. Her patella is freely movable without any discomfort. She has an area along the medial aspect of her left knee in the area of the anserine bursa which is tender from her previous fall. She has no tenderness of her knee to hyperflexion or hyperextension. Spike's sign was negative. No tenderness to varus or valgus stress. No lower extremity swelling. An x-ray her left knee was negative. IMPRESSION/REPORT/PLAN 1. Left knee pain. Plan: At this time I will give her an ANA bandage to help with some compression around this. I think this contusion from bumping the desk is what is contributing to her pain on the patella. She should take some ibuprofen and ice this which will help as well. If her symptoms worsen or do not improve within the next 5 to 7 days let us know. Regarding the other area of her knee that is uncomfortable, this will likely improve with the addition of the ibuprofen as well and the icing and the wrapping. If this area worsens or does not improve she will also let us know. TLR/kln Signed [facility] Electronically Signed By: SVETLANA SOLANO PA-C On: 08/12/2011 11:40 AM Source: [facility] MHSDOLBEYNONRADSYS Document Id: [id number] documented in this encounter Miscellaneous Notes Miscellaneous - Svetlana Solano P.A.-C. - 08/07/2011 5:00 PM CDT Ambulatory Patient Summary [address] [address] Visit Information Name: KEILY NG Current Date: 08/07/2011 17:00:54 Primary Care Provider: KAREN REYES MD Your Medications Here is a list of your medications. It is important to take your medications as directed. Use a pillbox or chart to help remind you to take your medications. Please let your doctor or nurse know if you have problems taking your medications. Medication/Strength Dose Route Frequency Indications/Special Instructions/Comments erythromycin (erythromycin) norelgestromin-ethinyl estradiol (Ortho Evra weekly extended release film) 1 patch Transdermal everyweek (apply a new patch weekly for 3 weeks, remove for 1 week, then repeat cycle) citalopram (citalopram 20 mg oral tablet) 20 mg Oral once a day Your Allergies & Intolerances Substance Reaction Symptoms Category Comments NKA Drug Your Problem List Problem Status Onset Comments Tobacco Use Disorder Active 04/02/2010 Polycystic ovarian disease Active Personal History of Cervical Dysplasia Active 10/03/2006 state, other Inactive 04/02/2010 lmp 02/26/2010, edc 12/03/2010 state, other Inactive 04/02/2010 s/p vaginal delivery 11/06/2010 Depression* Inactive Bipolar disorder, depressed Inactive , spontaneous, complete Inactive 11/24/2004 miscarriage at [...] Screening Chlamydia every 1 year Females Age 16-24 12/13/2010 12/13/2011 Screening Pap Smear every 3 years Women 21-65 12/13/2010 12/12/2013 Checks for signs of cancer of the cervix. Lipid Panel every 5 years Age 20-75 08/07/2011 Checks blood for good (HDL) and bad (LDL) cholesterol. Know your numbers, they are one indicator of your risk for heart attack and stroke. Vaccine: Tetanus every 10 years 12/29/2009 12/27/2019 Immunization to help prevent you from getting the serious disease Tetanus (Lockjaw). Your Upcoming Appointments Date Time Location Reason Provider No Appointments found Your Goals/Additional instructions: Source: [facility] POWERCHART Document Id: [id number] Electronically signed by Wendi [facility] Assembler Filters [id number] at 04/27/2017 1:21 PM CDT Miscellaneous - Svetlana Solano P.A.-C. - 08/07/2011 5:00 PM CDT Ambulatory Depart Summary [address] [address] Visit Information Name: KEILY NG Current Date: 08/07/2011 17:00:53 Primary Care Provider: KAREN REYES MD KEILY NG has been given the following list of medications: Your Medications It is important to take your medications as directed. Use a pill box or chart to help remind you to take your medications. Please let your doctor or nurse know if you have problems taking your medications. Medication/Strength Dose Route Frequency Indications/Special Instructions/Comments erythromycin (erythromycin) norelgestromin-ethinyl estradiol (Ortho Evra weekly extended release film) 1 patch Transdermal everyweek (apply a new patch weekly for 3 weeks, remove for 1 week, then repeat cycle) citalopram (citalopram 20 mg oral tablet) 20 mg Oral once a day Additional Information: Yes - Current list of reconciled medications is provided and explained to the patient and/or family, guardian/caregiver. [facility] Document Id: [id number] Miscellaneous - Conversion, Historical Provider Ser - 08/07/2011 2:06 PM CDT Adult House Director Intake/History Adult House Director Intake/History Entered On: 08/07/2011 14:07 CDT Performed On: 08/07/2011 14:06 CDT by RAFFI BRAND LPN Intake Chief Complaint: left knee pain Temperature Core: 37.0C(Converted to: 98.6DegF) Respiratory Rate: 14/min Systolic Blood Pressure: 118mmHg Diastolic Blood Pressure: 76mmHg NIBP Mean: 90mmHg Actual Weight: 69.000kg(Converted to: 152lb 2oz) Dosing Weight Clinic: 69.00kg RAFFI BRAND [facility] - 08/07/2011 14:06 CDT Subjective Pain Symptoms: Yes RAFFI BRAND LPN - 08/07/2011 14:06 CDT Dependent Habits Tobacco Use/Currently Using: No RAFFI BRAND LPN - 08/07/2011 14:06 CDT Tobacco Use Grid Type: Cigarettes Other Tobacco Frequency: non RAFFI BRAND LPN - 08/07/2011 14:06 CDT Caffeine Use Grid Caffeine Use: None RAFFI BRAND LPN - 08/07/2011 14:06 CDT Recreational Drug Use Grid Drug Use: None RAFFI BRAND LPN - 08/07/2011 14:06 CDT Allergy Allergies (Active) NKA Estimated Onset Date: Unspecified ; Created By: DUSTY CLEMONS; Reaction Status: Active ; Category: Drug ; Substance: NKA ; Type: Allergy ; Updated By: DUSTY CLEMONS; Reviewed Date: 04/18/2011 11:20 CDT [facility] Document Id: [id number]!24 documented in this encounter Plan of Treatment Upcoming Encounters Date Type Specialty Care Team Description 08/30/2022 Clinical Communication Admitting/Central Scheduling 09/02/2022 Comprehensive Visit Endocrinology Ricardo Winkler APRN, C.N.P., D.N.P. [address] [place] [address] documented as of this encounter Procedures Procedure Name Priority Date/Time Associated Diagnosis Comme nts DX KNEE LEFT 1 VIEW Routine 08/07/2011 2:26 PM Re sults for this CDT procedure are i n the results section. documented in this encounter Results DX Knee Left 1 View (08/07/2011 2:26 PM CDT) Anatomical Region Laterality Modality Lower Extremity, Knee Left Radiographic Imagi ng Specimen (Source) Anatomical Collection Method Collection Time Re ceived Time Location / / Volume Laterality 08/07/2011 2:26 PM CDT Addenda Addendum by ProviderNatalia M.D. o n 08/07/2011 2:26 PM CDT RAD^^^OW XR Knee Left 2 or less views 08/07/2011 14:26:00 Addendum by Natalia Rendon M.D. o n 08/07/2011 2:26 PM CDT RAD^^^MA XR KNEE LEFT 2 OR LESS VIEWS 08/07/2011 14:26:00 Narrative 08/07/2011 3:49 PM CDT Left knee. Two views. ?? FINDINGS: Negative Procedure Note Brian Holley D.O. / ProviderSharda M.D. - 04/17/2017 Left knee. Two views. FINDINGS: Negative Ning Dickson(R), RKesha(R)(M) IMG DIAGNOSTIC IMAGING PROCEDURES documented in this encounter Visit Diagnoses Not on filedocumented in this encounter Additional Health Concerns Assessment Noted Time PHQ-9 Depression Total Score: 5 12/13/2010 11:47 AM CS T documented as of this encounter
--- OUTSIDE RECORDS SUMMARY | 2022-08-16 21:35 | XMS_ITS | Encounter Summary ---
:1985 Author Organization [facility] Address [address] [place] [address] Care Team Providers Name Role Phone Unavailable Primary Care Provider Unavailable Encounter Details Date Type Department Care Team Description 01/22/2011 Hospital Encounter [facility]X [facility] Karen Dial i, M.D. [address] [place] [address] (Wo rk) Social History Tobacco [...] do you attend jew or Never 2021 yazidism services? Do you [...] encounter Progress Notes Karen Steinberg M.D. - 01/22/2011 12:00 AM CST [id number] IMPRESSION/REPORT/PLAN Gastroenteritis without evidence for dehydration. We will check her CBC and chemistries today, as well as stool studies. She is not nauseated and can tolerate oral fluids and should be able to maintain hydration. She may use [id number] antidiarrheal preparations, as along as there is no blood in her stool. Follow up with no improvement or with worsening symptoms. CHIEF COMPLAINT/REASON FOR VISIT Diarrhea HISTORY OF PRESENT ILLNESS Keily has had watery stools over the past day and a half or so. She has crampy abdominal discomfort. She has not had vomiting, but has had sour burps. She describes having several watery stools up to 3 to 4 times per hour without blood. She has not had fevers or chills. CURRENT MEDICATIONS Post-visit Medication Reconciliation Medications are reviewed and are as outlined in the EMR. VITAL SIGNS DATE/TIME 01/22/2011 WEIGHT 61 kg TEMPERATURE 36.2 degreesC PULSE 80 SYSTOLIC 92 DIASTOLIC 58 PHYSICAL EXAM AREA EXAM TEXT GENERAL She appears mildly ill. ENT Her tympanic membranes are normal. The oropharynx shows moist mucous membranes. LYMPH NODES Neck is without adenopathy. HEART Heart is regular rate and rhythm. LUNGS Lungs are clear to auscultation. ABDOMEN Abdomen has hyperactive bowel sounds with mild diffuse tenderness. REYNAF/glt Signed Karen Reyes M.D. Family Medicine Electronically Signed By: KAREN REYES MD On: 04/03/2011 10:36 Source: [facility] MHSDOLBEYNONRADSYS Document Id: [id number] documented in this encounter Miscellaneous Notes Miscellaneous - Karen Steinberg M.D. - 01/24/2011 1:02 PM EVALUATOR [employer]SF[employer]UDENTS Results Notification Document Contains Addenda Addendum by THIAGO MAYFIELD on 25 January 2011 09:05:53 [employer]ALUATOR [employer]UD[employer] Patient notified via mail. SAMI From: KAREN REYES MD To: LEORA MALONEY LPN Sent: 01/24/2011 13:02:54 [employer] ! Show up: 01/24/2011 13:01:00 [employer] Subject: Results Notification Actions: Notify patient of results Due Date/Time: 01/24/2011 13:01:00 EVALUATOR TRAN[employer]UDENTS Source: [facility] POWERCHART Document Id: [id number] Electronically signed by Conversion, [facility] Supervisor Sewer Maintenance [id number] at 04/27/2017 5:41 PM CDT Telephone Encounter - Liz Gandhi L.P.N. - 01/23/2011 10:57 AM CST Phone Message Document Contains Addenda Addendum by LEORA MALONEY LPN on 23 January 2011 16:37:46 [employer] notified Addendum by KAREN REYES MD on 23 January 2011 16:18:05 EVALUATOR [employer]UD[employer] From: KAREN REYES MD To: LEORA MALONEY; Sent: 01/23/2011 16:18:05 [employer]ALUATOR [employer] Subject: FW: Phone Message waiting for stool tests blood unremarkable From: LIZ GANDHI To: KAREN REYES MD; LEORA MALONEY LPN; LIZ GANDHI; Sent: 01/23/2011 10:57:11 [employer]ALUATOR [employer]UD[employer] Subject: Phone Message Caller is: ( x ) Patient ( ) Mother ( ) Father ( ) Spouse ( ) Daughter ( ) Son ( ) Pharmacy ( ) Other: Physician: Patient MRN #: Reason for Call: Message:I just got out of Emergency Room with Karyn. Curious if you found out anything with my testing yesterday.Karyn is in a lot of pain. They have a catheter done. She's been screaming, holding her stomach, crying that her crotch hurts. She doesn't have UTI. Hoping you know what's wrong with me so I can get her treated as well. Call me as soon as you can. Advice/Action: Source used: ( ) Verbalizes understanding [...] back cell phone number ( ) Source: [facility] POWERCHART Document Id: [id number] Electronically signed by Conversion, [facility] Supervisor Sewer Maintenance [id number] at 04/27/2017 5:41 PM CDT Miscellaneous - Conversion, Historical Provider Ser - 01/22/2011 11:18 AM EVALU[employer]UD[employer] Adult Infrastructure Solutions Architect Intake/History Adult Infrastructure Solutions Architect Intake/History Entered On: 01/22/2011 11:19 [employer]UATOR [employer] Performed On: 01/22/2011 11:18 EVALUATOR TRANSF[employer]UDENTS by LEORA MALONEY LPN Intake Chief Complaint: abdominal pain, wt loss, diarrhea Temperature Core: 36.2C(Converted to: 97.2DegF) (LOW) Peripheral Pulse Rate: 80/min Systolic Blood Pressure: 92mmHg Diastolic Blood Pressure: 58mmHg NIBP Mean: 69mmHg BP Location: Right upper extremity Actual Weight: 61.000kg(Converted to: 134lb 8oz) Dosing Weight Clinic: 61.00kg LEORA MALONEY [facility] - 01/22/2011 11:18 EVALUATOR TRANSF[employer]UDENTS Subjective Pain Symptoms: Yes LEORA MALONEY [facility] - 01/22/2011 11:18 EVALUATOR TRAN[employer]UD[employer] Pain Pain Assessment Grid Pain 1 Location: Abdomen LEORA MALONEY [facility] - 01/22/2011 11:18 EVALUATOR TRAN[employer]UDENTS Dependent Habits Tobacco Use/Currently Using: No LEORA MALONEY [facility] - 01/22/2011 11:18 EVALUATOR TRAN[employer]UDENTS Tobacco Use Grid Type: Cigarettes Other Tobacco Frequency: non LEORA MALONEY [facility] - 01/22/2011 11:18 EVALUATOR TRANSF[employer]UDENTS Allergies Allergies (Active) NKA Estimated Onset Date: Unspecified ; Created By: DUSTY CLEMONS; Reaction Status: Active ; Category: Drug ; Substance: NKA ; Type: Allergy ; Updated By: DUSTY CLEMONS; Reviewed Date: 12/13/2010 11:45 EVALUATOR TRANSFER STUDENTS Source: [facility] POWERCHART Document Id: [id number] EVALUATOR TRAN[employer]UD[employer]!23 documented in this encounter Plan of Treatment Upcoming Encounters Date Type Specialty Care Team Description 08/30/2022 Clinical Communication Admitting/Central Scheduling 09/02/2022 Comprehensive Visit Endocrinology Ricardo Winkler APRN, C.N.P., D.N.P. [address] [place] [address] documented as of this encounter Visit Diagnoses Not on filedocumented in this encounter Additional Health Concerns Assessment Noted Time PHQ-9 Depression Total Score: 5 12/13/2010 11:47 AM CS T documented as of this encounter
--- OUTSIDE RECORDS SUMMARY | 2022-08-16 21:35 | XMS_ITS | Encounter Summary ---
:1985 Author Organization [facility] Address [address] [place] [address] Care Team Providers Name Role Phone Unavailable Primary Care Provider Unavailable Encounter Details Date Type Department Care Team Description 09/29/2013 Hospital Encounter HX [facility] Narinder De [...] do you attend denominational or Never 2021 scientology services? Do you belong to any clubs [...] Reading Time Taken Comments Blood Pressure 90/60 09/29/2013 3:32 PM OFFSHORING MANAGER Pulse 80 09/29/2013 3:32 PM OFFSHORING MANAGER Temperature - - Respiratory Rate 16 09/29/2013 3:32 PM OFFSHORING MANAGER Oxygen Saturation - - Inhaled Oxygen Concentration - - Weight 65.2 kg (143 lb 11.8 oz) 09/29/2013 3:32 PM OFFSHORING MANAGER Height - - Body Mass Index 28.98 02/18/2013 10:23 AM CDT documented in this encounter Progress Notes Narinder Enriquez M.D. - 09/29/2013 3:22 PM CST [id number] CHIEF COMPLAINT/REASON FOR VISIT 1. Ovarian pain. 2. Request to start contraception. 3. Polycystic ovarian syndrome. 4. Skin tags. 5. Headaches. 6. Weight gain. HISTORY OF PRESENT ILLNESS This patient presents with multiple complaints. She is a 27-year-old G5 P 3-0-2-3 female with LMP of09/29/2013. She reports regular menses every 5 weeks that lasts for approximately 5 days. She deniesmenorrhagia or intermenstrual bleeding. She has mild dysmenorrhea which is controlled with [id number] pain medication. The patient's first concern is ovarian pain. She thinks it is related to polycystic ovarian syndrome. She complains of pain in her ovaries at midcycle around ovulation. It is a sharp stabbing pain that can last for seconds to minutes and is episodic over 1 to 2 days at the mid cycle. It alternates between the left and right ovary, is not always with the same ovary. The patient reports that this pain has worsened over the last 6 to 8 months. The patient thinks it is related toher polycystic ovarian syndrome. The patient has been well managed with polycystic ovarian syndrome with regular menses on Ortho Evra patch, however she stopped Ortho Evra patch almost a year ago due to lack of insurance and cost. The patient does not want to become . The patient just receivednew medical insurance and she would like to restart on Ortho Evra patch for treatment for her polycystic ovarian syndrome. Patient also has complaints of weight gain. She reports a 13-pound weight gain in the last 2 months.She also reports being more tired over the last 2 months. She reports her clothes no longer fit because of her weight gain. She further complains of headaches and sometimes these are daily in nature. The patient's last complaint is for some skin tags on her neck that are enlarging and she would like to have these evaluated and removed. ALLERGIES No known drug allergies. Medications are Ortho Evra patch, new prescription given today. PAST MEDICAL / SURGICAL HISTORY 1. Tobacco abuse. 2. History of bipolar disorder. 3. History depression. 4. History of cervical dysplasia 2005. 5. Polycystic ovarian syndrome. PAST SURGICAL HISTORY 1. Laparoscopic appendectomy 12/25/2012. Past obstetrical history is vaginal delivery times 3. SOCIAL HISTORY The patient is single. She smokes less than one-half pack per day. She denies alcohol. She denies drug use. She denies history of STD or PID. She does have a history of cervical dysplasia in 2005 with normal followup Pap smear. She denies history of abuse. ADULT PREVENTATIVE SERVICES Tobacco use: Yes less one-half pack per day. Advised to quit. Pap smear: 05/19/2012. Tetanus: 12/29/2009. Lipid panel: 12/14/2010. Influenza: Declined. Depression: Denied. Asthma: Denied. PHYSICAL EXAMINATION WEIGHT: 65.2 kg. TEMPERATURE: 37.2. PULSE: 80. RESPIRATIONS: 16. BLOOD PRESSURE: 90/60. PHYSICAL EXAMINATION GENERAL: Well-developed, well-nourished female in no apparent distress. Alert and oriented x3. LUNGS: Clear to auscultation bilaterally with good inspiratory effort. HEART: Regular rate and rhythm without murmur. ABDOMEN: Soft, nontender, nondistended. Positive bowel sounds. No hepatosplenomegaly. No rebound, noguarding. EXTREMITIES: No clubbing, cyanosis or edema, nontender bilaterally. GENITAL EXAM: Declined by patient as she started her menses today. SKIN: The patient has 1 small skin tag on the left side of her anterior neck. Not tender to palpation. No erythema. Patient has some scratch miles on and around the skin tag. No evidence of infection. IMPRESSION/REPORT/PLAN 1. History of polycystic ovarian syndrome. 2. Episodic ovarian tenderness at mid cycle in ovulation unknown etiology. 3. Skin tags. 4. Weight gain. 5. Headaches. PLAN: 1. The patient declines pelvic examination today because she started her menses. 2. I recommend we check a pelvic ultrasound to assess her uterus and ovaries due to her history of polycystic ovarian syndrome and now with some ovarian discomfort at midcycle. I will contact patient with this result. 3. I recommend the patient restart on Ortho Evra patch or control pills to help regulate her menses and therefore help control her polycystic ovarian syndrome. The patient now has insurance and would like to restart. I reviewed the risks, benefits, alternatives and indication of control pills both continuous and cyclic as well as Ortho Evra patch, NuvaRing, Nexplanon, Depo Provera with the patient as well as Mirena IUD. 4. Patient would like to restart Ortho Evra patch. She has been on this before with good results andno problems. I gave patient a prescription for Ortho Evra patch 1 patch to be changed weekly, #3 patches x 11 refills. I recommend the patient start this coming Friday as she just started her menses today. I recommend the patient refrain from intercourse until she finishes the first box. She verbalizes understanding. 5. I would like the patient to follow up with her primary provider Dr. Karen Reyes for further evaluation and management of the skin tags, weight gain, headaches and possible metabolism issues. She agrees with this course of action. 6. I will be happy to see the patient on an as-needed basis. 7. I strongly encouraged tobacco cessation. 8. Spent 25 minutes [id number]-lv-mhvs time with patient discussing symptoms, performing examination and coordinating care. Narinder Enriquez M.D./jada Electronically Signed By: NARINDER ENRIQUEZ MD On: 09/30/2013 04:08 PM Source: [facility] MHSDOLBEYNONRADSYS Document Id: [id number] HORING MANAGER documented in this encounter Miscellaneous Notes Miscellaneous - Narinder Enriquez M.D. - 09/29/2013 4:02 PM CST Ambulatory Patient Summary [address] [address] Visit Information Name: SAMUEL NG [facility] Number: [id number] Current Date: 09/29/2013 16:02:25 Physicians Attending Provider: NARINDER ENRIQUEZ MD Primary [...] your medications. Medication/Strength Dose Route Frequency Indications/Special Instructions/Comments/Notes norelgestromin-ethinyl estradiol (Ortho Evra 150 mcg-20 mcg/24 hr transdermal film, extended release) 1 patch Transdermal every week (apply a new patch weekly for 3 weeks, remove for 1 week, then repeat cycle) Attention: If you have any medications at [...] Upcoming Appointments Date Time Location Reason Provider 10/04/2013 09:30 [facility] Ultrasound ovarian pain, hx of pcos [facility] US Room 1 10/04[facility]2013 12:30 [facility], [facility], headache David Haley Attention: Contact your local Clinic if further appointment detail needed. Your Goals/Additional instructions: Source: [facility] POWERCHART Document Id: [id number] HORING MANAGER Miscellaneous - Narinder Enriquez M.D. - 09/29/2013 4:02 PM CST Ambulatory Depart Summary [address] [address] Visit Information Name: SAMUEL NG [facility] Number: [id number] Visit Date: 09/29/2013 16:02:24 Attending Provider: NARINDER ENRIQUEZ MD Primary Care [...] your medications. Medication/Strength Dose Route Frequency Indications/Special Instructions/Comments/Notes norelgestromin-ethinyl estradiol (Ortho Evra 150 mcg-20 mcg/24 hr transdermal film, extended release) 1 patch Transdermal every week (apply a new patch weekly for 3 weeks, remove for 1 week, then repeat cycle) Attention: If you have any medications at home that are not on this list, DO NOT take them until youcontact your provider for clarification. Additional Information: Source: [facility] POWERCHART Document Id: [id number] HORING MANAGER Miscellaneous - Bushra Christy L.P.N. - 09/29/2013 3:32 PM CST Adult Archaeologist Intake/History Adult Archaeologist Intake/History Entered On: 09/29/2013 15:34 OFFSHORING MANAGER Performed On: 09/29/2013 15:32 OFFSHORING MANAGER by BUSHRA CHRISTY Intake Chief Complaint : PCOS concult Temperature Core : 37.2 DegC(Converted to: 99.0 DegF) Peripheral Pulse Rate : 80 /min Respiratory Rate : 16 /min Heart Rhythm : Regular Systolic Blood Pressure : 90 mmHg (LOW) Diastolic Blood Pressure : 60 mmHg NIBP Mean : 70 mmHg BP Location : Right upper extremity Blood Pressure Cuff Size : Regular Actual Weight : 65.2 kg(Converted to: 143 lb 12 oz) Weight Source : Standing scale Dosing Weight Clinic : 65.2 kg BUSHRA CHRISTY - 09/29/2013 15:32 OFFSHORING MANAGER General Info Languages : Persian BUSHRA CHRISTY - 09/29/2013 15:32 OFFSHORING MANAGER Subjective Pain Symptoms : No BUSHRA CHRISTY - 09/29/2013 15:32 OFFSHORING MANAGER Dependent Habits Tobacco Use/Currently Using : Yes Tobacco Use/Advised to Quit : Yes Exposure to Tobacco Smoke : Patient smokes Smoking Status : Current every day smoker BUSHRA CHRISTY - 09/29/2013 15:32 OFFSHORING MANAGER Tobacco Use Grid Type : Cigarettes Cigarette Use Packs/Day : 0.3 BUSHRA CHRISTY - 09/29/2013 15:32 OFFSHORING MANAGER Caffeine Use Grid Caffeine Use : None BUSHRA CHRISTY - 09/29/2013 15:32 OFFSHORING MANAGER Recreational Drug Use Grid Drug Use : None BUSHRA CHRISTY - 09/29/2013 15:32 OFFSHORING MANAGER Source: [facility] POWERCHART Document Id: [id number] OFFSHORING MANAGER!34 HORING MANAGER documented in this encounter Plan of Treatment Upcoming Encounters Date Type Specialty Care Team Description 08/30/2022 Clinical Communication Admitting/Central Scheduling 09/02/2022 Comprehensive Visit Endocrinology Ricardo Winkler APRN, C.N.P., D.N.P. [address] [place] [address] documented as of this encounter Visit Diagnoses Not on filedocumented in this encounter Additional Health Concerns Assessment Noted Time PHQ-9 Depression Total Score: 13 10/22/2011 3:25 PM CS T documented as of this encounter
--- OUTSIDE RECORDS SUMMARY | 2022-08-16 21:35 | XMS_ITS | Encounter Summary ---
:1985 Author Organization [facility] Address [address] [place] [address] Care Team Providers Name Role Phone Unavailable Primary Care Provider Unavailable Encounter Details Date Type Department Care Team Description 09/21/2010 Hospital Encounter HX [facility] Jhonny Enriquez M.D . Social History Tobacco Use [...] do you attend jewish or Never 2021 advent services? Do you belong to any clubs or No 01/25/2022 organizations such as jewish groups, unions, fraternal or athletic groups, or [...] Endocrinology Ricardo Winkler, SILVIO, C.N.P., D.N.P. [address] [place] [phone] documented as of this encounter Visit Diagnoses Not on filedocumented in this encounter
--- OUTSIDE RECORDS SUMMARY | 2022-08-16 21:35 | XMS_ITS | Encounter Summary ---
:1985 Author Organization [facility] Address [address] [place] [address] Care Team Providers Name Role Phone Unavailable Primary Care Provider Unavailable Encounter Details Date Type Department Care Team Description 10/22/2011 Hospital Encounter HX [facility] Augustina Graff, OIL FIELD EQUIPMENT MECHANIC, C.N.P. [address] [place] [address] (Wo rk) Social History Tobacco [...] do you attend scientologist or Never 2021 holiness services? Do you [...] documented as of this encounter Progress Notes Alfredo Graff, SILVIO, C.N.P. - 10/22/2011 12:00 AM CST [id number] CHIEF COMPLAINT/ REASON FOR VISIT 1. Sinus congestion with postnasal drip and laryngitis. 2. Depression HISTORY OF PRESENT ILLNESS 1. Keily states she has had sinus congestion with postnasal drip and scratchy throat for the past week. Yesterday she lost her voice. She denies fever. 2. She has history of depression. She ran out of citalopram a couple of weeks ago she wants to get back on that. 3. She states she would like test today her periods are very irregular due to polycystic ovarian syndrome. She uses Ortho Evra patch. She was a week late with her last patch CURRENT MEDICATIONS See depart summary from today ALLERGIES None PREVENTIVE: Due for chlamydia screen that will be done today VITAL SIGNS See EMR PHYSICAL EXAM Well developed obese female in no acute distress. SKIN: Warm and dry. TMs clear. Nares congested yellow mucus. Tenderness over the maxillary sinus. Throat slightly erythematous mild anterior cervical lymphadenopathy. HEART: Regular rate and rhythm. LUNGS: Clear to auscultation no wheezes or rales. ABDOMEN: Soft, nontender, hepatosplenomegaly. IMPRESSION/REPORT/PLAN 1. Acute sinusitis. Amoxicillin 500 milligrams two twice daily for 10 days encourage fluids, Tylenol for fever discomfort. 2. Depression. Refill on citalopram 20 milligrams. PHQ-9 score today is 13. 3. Will check urine and urine chlamydia screen today and I will contact her with results this afternoon SJM/clf Signed Alfredo Graff, MSN, GALLERY ASSISTANT, CDE Family Nurse Practitioner Electronically Signed By: ALFREDO GRAFF CNP On: 10/23/2011 09:41 AM Source: [facility] GINETTES Document Id: [id number] WEIGHER documented in this encounter Miscellaneous Notes Miscellaneous - Lucinda Dwyer L.P.N. - 10/23/2011 9:27 AM CST PhQ-9 From: LUCINDA DWYER LPN To: TERRI HOLLINGSWORTH; Sent: 10/23/2011 09:27:05 COAL WEIGHER Show up: 03/23/2012 09:26:00 CDT Subject: PhQ-9 Due Date/Time: 04/21/2012 09:26:00 CDT Please Remember to: Call patient and have them schedule a 6 month follow up of depression. PHQ-9 needs to be completed within 30 days of 04/21/2011 PATIENT: ( x ) Call Patient ( ) Ask Patient to ( ) ( ) Call Relative ( x ) Schedule Patient ( ) ( ) Call for District Sales Representative ( ) Follow up on Results ( ) Other: PROVIDER: ( ) Call Physician ( ) Call Pharmacist ( ) Call Lab ( ) Other: Special Instructions: Comments: Source: [facility] POWERCHART Document Id: [id number] Electronically signed by Wendi [facility] Transportation Solutions Manager [id number] at 04/27/2017 12:06 PM CDT Miscellaneous - Alfredo Graff APRN, C.N.P. - 10/22/2011 3:27 PM CST Ambulatory Patient Summary [address] [address] Visit Information Name: ANYA KEILY DYANA Current Date: 10/22/2011 15:27:41 Primary Care Provider: KAREN REYES MD Your Medications Here is a list of your medications. It is important to take your medications as directed. Use a pillbox or chart to help remind you to take your medications. Please let your doctor or nurse know if you have problems taking your medications. Medication/Strength Dose Route Frequency Indications/Special Instructions/Comments amoxicillin (amoxicillin 500 mg oral capsule) 1,000 mg Oral two times a day for 10 Days citalopram (citalopram 20 mg oral tablet) 20 mg Oral once a day norelgestromin-ethinyl estradiol (Ortho Evra weekly extended release film) 1 patch Transdermal everyweek (apply a new patch weekly for 3 weeks, remove for 1 week, then repeat cycle) Your Allergies & Intolerances Substance Reaction Symptoms Category Comments NKA Drug Your Problem List Problem Status Onset Comments Tobacco Use Disorder Active 04/02/2010 Bipolar disorder, depressed Active Polycystic ovarian disease Active Personal History of Cervical Dysplasia Active 10/03/2006 Depressive disorder, major, recurrent episode Active state, other Inactive 04/02/2010 lmp 02/26/2010, edc 12/03/2010 state, other Inactive 04/02/2010 s/p vaginal delivery 11/06/2010 , spontaneous, complete Resolved 11/24/2004 miscarriage at 11wk , spontaneous, complete Resolved 11/24/2005 miscarriage at 13wk Your Recommendations We [...] Last Done Next Due Additional Information Screening Pap Smear every 3 years Women 21-65 12/13/2010 12/12/2013 Checks for signs of cancer of the cervix. Lipid Panel every 5 years Age 20-75 10/22/2011 Checks blood for good (HDL) and bad (LDL) cholesterol. Know your numbers, they are one indicator of your risk for heart attack and stroke. Vaccine: Tetanus every 10 years 12/29/2009 12/27/2019 Immunization to help prevent you from getting the serious disease Tetanus (Lockjaw). Your Upcoming Appointments Date Time Location Reason Provider No Appointments found Your Goals/Additional instructions: Source: [facility] POWERCHART Document Id: [id number] WEIGHER Miscellaneous - Alfredo Graff APRN, C.N.P. - 10/22/2011 3:27 PM CST Ambulatory Depart Summary [address] [address] Visit Information Name: KEILY NG Current Date: 10/22/2011 15:27:41 Primary Care Provider: KAREN REYES MD KEILY NG has been given the following list of medications: Your Medications It is important to take your medications as directed. Use a pill box or chart to help remind you to take your medications. Please let your doctor or nurse know if you have problems taking your medications. Medication/Strength Dose Route Frequency Indications/Special Instructions/Comments amoxicillin (amoxicillin 500 mg oral capsule) 1,000 mg Oral two times a day for 10 Days citalopram (citalopram 20 mg oral tablet) 20 mg Oral once a day norelgestromin-ethinyl estradiol (Ortho Evra weekly extended release film) 1 patch Transdermal everyweek (apply a new patch weekly for 3 weeks, remove for 1 week, then repeat cycle) Additional Information: Source: [facility] POWERCHART Document Id: [id number] WEIGHER Miscellaneous - Alfredo Graff APRN, C.N.P. - 10/22/2011 3:25 PM CST PHQ-9 PHQ-9 Entered On: 10/22/2011 15:26 COAL WEIGHER Performed On: 10/22/2011 15:25 COAL WEIGHER by ALFREDO GRAFF CNP PHQ-9 Little interest or pleasure in doing things : More than half the days Feeling down, depressed, or hopeless : Several days Trouble falling or staying asleep, or sleeping too much : More than half the days Feeling tired or having little energy : More than half the days Poor appetite or overeating : More than half the days Feeling bad about yourself or that you are a failure : Several days Trouble concentrating on things : More than half the days Moving or speaking slowly; restless or fidgety : Several days Thoughts that you would be better off /hurting self : Not at all PHQ-9 Calculated Score : 13 Problems make work, home, or dealing with others : Somewhat difficult ALFREDO GRAFF GALLERY ASSISTANT - 10/22/2011 15:25 COAL WEIGHER Source: [facility] FatRedCouch Document Id: [id number] COAL WEIGHER!13 WEIGHER Miscellaneous - Terri Hollingsworth L.P.N. - 10/22/2011 3:09 PM CST Adult Cement Finisher Helper Intake/History Adult Cement Finisher Helper Intake/History Entered On: 10/22/2011 15:12 COAL WEIGHER Performed On: 10/22/2011 15:09 COAL WEIGHER by TERRI HOLLINGSWORTH Intake Chief Complaint : lost voice 4 days ago Temperature Core : 36.8C(Converted to: 98.2DegF) Peripheral Pulse Rate : 72/min Respiratory Rate : 16/min Systolic Blood Pressure : 110mmHg Diastolic Blood Pressure : 60mmHg NIBP Mean : 77mmHg Actual Weight : 69.8kg(Converted to: 153lb 14oz) Dosing Weight Clinic : 69.80kg TERRI HOLLINGSWORTH - 10/22/2011 15:09 COAL WEIGHER Subjective Pain Symptoms : No TERRI HOLLINGSWORTH - 10/22/2011 15:09 COAL WEIGHER Dependent Habits Tobacco Use/Currently Using : No Smoking Status : Former smoker TERRI HOLLINGSWORTH - 10/22/2011 15:09 COAL WEIGHER Tobacco Use Grid Type : Cigarettes Other Tobacco Frequency : non TERRI HOLLINGSWORTH - 10/22/2011 15:09 COAL WEIGHER Caffeine Use Grid Caffeine Use : None TERRI HOLLINGSWORTH - 10/22/2011 15:09 COAL WEIGHER Recreational Drug Use Grid Drug Use : None TERRI HOLLINGSWORTH - 10/22/2011 15:09 COAL WEIGHER Allergy Allergies (Active) NKA Estimated Onset Date: Unspecified ; Created By: DUSTY CLEMONS; Reaction Status: Active ; Category: Drug ; Substance: NKA ; Type: Allergy ; Updated By: DUSTY CLEMONS; Reviewed Date: 04/18/2011 11:20 CDT Source: [facility] POWERCHART Document Id: [id number] COAL WEIGHER!26 WEIGHER documented in this encounter Plan of Treatment Upcoming Encounters Date Type Specialty Care Team Description 08/30/2022 Clinical Communication Admitting/Central Scheduling 09/02/2022 Comprehensive Visit Endocrinology Ricardo Winkler, SILVIO, C.N.P., D.N.P. [address] [place] [phone] documented as of this encounter Visit Diagnoses Not on filedocumented in this encounter Additional Health Concerns Assessment Noted Time PHQ-9 Depression Total Score: 13 10/22/2011 3:25 PM CS T documented as of this encounter
--- OUTSIDE RECORDS SUMMARY | 2022-08-16 21:35 | XMS_ITS | Encounter Summary ---
:1985 Author Organization [facility] Address [address] [place] [address] Care Team Providers Name Role Phone Unavailable Primary Care Provider Unavailable Encounter Details Date Type Department Care Team Description 02/11/2011 Hospital Encounter HX [facility] Jax Roberts M.D. [address] [place], [place] [address] (Wo rk) Social History [...] do you attend druze or Never 2021 restoration services? Do you [...] documented as of this encounter Progress Notes Neetu Reis M.D. - 02/11/2011 12:00 AM CDT [id number] CHIEF COMPLAINT/ REASON FOR VISIT Sore throat. HISTORY OF PRESENT ILLNESS The patient was exposed to strep on Friday which was two days ago. She has developed some sore throat and glands in the neck after a month of coughing. She had no fever or chills with her coughing, but she got hoarse and the coughing was minimally productive. However, on Friday, which was 48 hours ago, she was exposed to children who were strep positive. She started on Friday to develop sore throat and now has glands in the neck. She has inspected her throat in the mirror and does not have any exudates. CURRENT MEDICATIONS Post-visit Medication Reconciliation Please see [facility] electronic medical record. ALLERGIES Per [facility] electronic medical record. SYSTEMS REVIEW Review of systems in all areas is negative except as mentioned above. PAST MEDICAL/SURGICAL HISTORY Per [facility] electronic medical record. PREVENTIVE SERVICES Per [facility] electronic medical record. Handwashing done prior to patient contact. VITAL SIGNS Per [facility] electronic medical record. PHYSICAL EXAM AREA EXAM TEXT EYES Conjunctiva and lids normal. Pupils equal, round, reactive to light and accommodation. Extraocular movements normal. Sclera nonicteric. Fundi sharp discs bilaterally. ENT Tympanic membranes look okay bilaterally. Nares without erythema or congestion. Mouth: Minimal pharyngeal erythema with no exudates. NECK Neck is supple. Carotid upstrokes +2 bilaterally. No carotid bruits. LYMPH NODES Shotty anterior cervical adenopathy. THYROID No thyromegaly. LUNGS Lung salgado clear to auscultation and percussion with normal respiratory rate and effort. IMPRESSION/REPORT/PLAN Pharyngitis, possible strep. We will treat with Zithromax 500 milligrams daily times 3 days, take on an empty stomach. A rapid strep with backup culture was performed and we will call her with results. DMB/nmd Signed Neetu Reis M.D. Internal Medicine Electronically Signed By: NEETU REIS MD On: 02/12/2011 03:29 Source: [facility] MHSDOLBEYNONRADSYS Document Id: [id number] documented in this encounter Miscellaneous Notes Miscellaneous - Neetu Reis M.D. - 02/12/2011 11:36 AM CDT Results Notification From: NEETU REIS MD To: JANETTE MCNEIL Sent: 02/12/2011 11:36:01 CDT ! Show up: 02/12/2011 11:35:00 CDT Subject: Results Notification Actions: Notify patient of results Due Date/Time: 02/12/2011 11:35:00 CDT Source: [facility] POWERCHART Document Id: [id number] Miscellaneous - Neetu Reis M.D. - 02/11/2011 1:55 PM CDT Results Notification Document Contains Addenda Addendum by JANETTE MCNEIL LPN on 11 February 2011 14:11:16 CDT called with results From: NEETU REIS MD To: JANETTE MCNEIL Sent: 02/11/2011 13:55:50 CDT ! Show up: 02/11/2011 13:55:00 CDT Subject: Results Notification Actions: Notify patient of results Due Date/Time: 02/11/2011 13:55:00 CDT Source: [facility] POWERCHART Document Id: [id number] Miscellaneous - Janette Mcneil L.P.NAmaris - 02/11/2011 1:34 PM CDT Adult Manager Regulatory Intake/History Adult Manager Regulatory Intake/History Entered On: 02/11/2011 13:36 CDT Performed On: 02/11/2011 13:34 CDT by JANETTE MCNEIL LPN Intake Chief Complaint: hoarse Peripheral Pulse Rate: 68/min Systolic Blood Pressure: 102mmHg Diastolic Blood Pressure: 64mmHg NIBP Mean: 77mmHg BP Location: Left upper extremity Heart Rhythm: Regular Actual Weight: 62.000kg(Converted to: 136lb 11oz) Weight Source: Standing scale Dosing Weight Clinic: 62.00kg MCNEIL JANETTERAMÓN [employer]AR[employer] UNDER[employer]LLAR MAKER - 02/11/2011 13:34 CDT Subjective Pain Symptoms: Arina MCNEIL JANETTERAMÓN MCFARLANE LPN - 02/11/2011 13:34 CDT Dependent Habits Tobacco Use/Currently Using: Arina MCNEILJANETTE DENYS PIRES - 02/11/2011 13:34 CDT Tobacco Use Grid Type: Cigarettes Other Tobacco Frequency: non JAVIER JANETTERAMÓN MCFARLANE LPN - 02/11/2011 13:34 CDT Alcohol Use: No JANETTE MCNEIL LPN - 02/11/2011 13:34 CDT Caffeine Use Grid Caffeine Use: None JAVIER JANETTERAMÓN [place]AR[place]ANE LPN - 02/11/2011 13:34 CDT Recreational Drug Use Grid Drug Use: None JANETTE MCNEIL LPN - 02/11/2011 13:34 CDT Allergies Latex Screening: Arina MCNEIL JANETTERAMÓN MCFARLANE LPN - 02/11/2011 13:34 CDT Allergies (Active) NKA Estimated Onset Date: Unspecified ; Created By: DUSTY CLEMONS Reaction Status: Active ; Category: Drug ; Substance: NKA ; Type: Allergy ; Updated By: DUSTY CLEMONS; Reviewed Date: 02/11/2011 13:32 CDT Source: [facility] [employer] Document Id: [id number] documented in this encounter Plan of Treatment Upcoming Encounters Date Type Specialty Care Team Description 08/30/2022 Clinical Communication Admitting/Central Scheduling 09/02/2022 Comprehensive Visit Endocrinology Ricardo Winkler APRN, C.N.P., D.N.P. [address] [place] [phone] documented as of this encounter Visit Diagnoses Not on filedocumented in this encounter Additional Health Concerns Assessment Noted Time PHQ-9 Depression Total Score: 5 12/13/2010 11:47 AM CS T documented as of this encounter
--- OUTSIDE RECORDS SUMMARY | 2022-08-16 21:35 | XMS_ITS | Encounter Summary ---
:1985 Author Organization [facility] Address [address] [place] [address] Care Team Providers Name Role Phone Unavailable Primary Care Provider Unavailable Encounter Details Date Type Department Care Team Description 06/17/2012 Hospital Encounter HX [facility] Karen Dial i, M.D. [address] [place] [address] (Wo rk) Social History Tobacco [...] do you attend uatsdin or Never 2021 oriental orthodox services? Do [...] Sign Reading Time Taken Comments Blood Pressure 82/52 06/17/2012 9:33 AM CDT Pulse 88 06/17/2012 9:33 AM CDT Temperature - - Respiratory Rate 16 06/17/2012 9:33 AM CDT Oxygen Saturation - - Inhaled Oxygen Concentration - - Weight - - Height - - Body Mass Index - - documented in this encounter Progress Notes Karen Steinberg M.D. - 06/17/2012 9:25 AM CDT [id number] CHIEF COMPLAINT/REASON FOR VISIT Recheck swollen hand HISTORY OF PRESENT ILLNESS Samuel was seen on 06/11 with swelling of her left hand with swelling especially in the fifth finger. We had checked some labs which were unremarkable. She called on the following day, stating that herfinger seemed more numb and that it was still swollen and red and warm to the touch. I treated her for the possibility of infection, especially given the fact that her white blood cell count has been somewhat elevated. She was treated with Augmentin 500 mg three times daily to take for 7 days. She comes in today to follow up. She has had considerable improvement in the swelling, redness and discomfort. She has not had fevers. CURRENT MEDICATIONS Medications are reviewed and are as outlined in the EMR, including the continuation of Augmentin. VITAL SIGNS TEMPERATURE: 36.8 RESPIRATIONS: 16 PULSE: 88 BLOOD PRESSURE: 82/52 PHYSICAL EXAM EXTREMITIES: The left fifth finger appears normal. There is subtle swelling at the PIP joint. There is no tenderness. She has full range of motion. IMPRESSION/REPORT/PLAN Cellulitis of the left fifth finger improved. Continue her course of Augmentin. Her CBC is recheckedtoday. Follow up with any worsening symptoms. Karen Reyes M.D./gt Electronically Signed By: KAREN REYES MD On: 07/14/2012 09:28 AM Source: [facility] MHSDOLBEYNONRADSYS Document Id: [id number] documented in this encounter Miscellaneous Notes Miscellaneous - Karen Steinberg M.D. - 06/17/2012 5:57 PM CDT Ambulatory Patient Summary [address] [address] Visit Information Name: SAMUEL NG Current Date: 06/17/2012 17:57:12 Physicians Attending Provider: KAREN REYES MD Primary Care Provider: KAREN REYES MD Your Medications Here is a list of your medications. It is important to take your medications as directed. Use a pillbox or chart to help remind you to take your medications. Please let your doctor or nurse know if you have problems taking your medications. Medication/Strength Dose Route Frequency Indications/Special Instructions/Comments amoxicillin-clavulanate (Augmentin 500 mg oral tablet) 1 tab(s) Oral three times a day for 7 Days norelgestromin-ethinyl estradiol (Ortho Evra 150 mcg-20 mcg/24 [...] Appointments found Your Goals/Additional instructions: Source: [facility] POWERCHART Document Id: [id number] Miscellaneous - Karen Steinberg M.D. - 06/17/2012 5:57 PM CDT Ambulatory Depart Summary [address] [address] Visit Information Name: SAMUEL NG Visit Date: 06/17/2012 17:57:12 Attending Provider: KAREN REYES MD Primary Care [...] medications. Medication/Strength Dose Route Frequency Indications/Special Instructions/Comments amoxicillin-clavulanate (Augmentin 500 mg oral tablet) 1 tab(s) Oral three times a day for 7 Days norelgestromin-ethinyl estradiol (Ortho Evra 150 mcg-20 mcg/24 [...] your provider for clarification. Additional Information: Source: [facility] POWERCHART Document Id: [id number] Miscellaneous - Conversion, Historical Provider Ser - 06/17/2012 9:33 AM CDT Adult Center Mgr Intake/History Adult Center Mgr Intake/History Entered On: 06/17/2012 9:35 CDT Performed On: 06/17/2012 9:33 CDT by LEORA MALONEY LPN Intake Chief Complaint : recheck left 5th finger Temperature Core : 36.8C(Converted to: 98.2DegF) Peripheral Pulse Rate : 88/min Respiratory Rate : 16/min Systolic Blood Pressure : 82mmHg (<LLOW) Diastolic Blood Pressure : 52mmHg NIBP Mean : 62mmHg BP Location : Right upper extremity Blood Pressure Cuff Size : Regular LEORA MALONEY [facility] - 06/17/2012 9:33 CDT Subjective Pain Symptoms : Yes LEORA MALONEY [facility] - 06/17/2012 9:33 CDT Pain Pain Assessment Grid Pain 1 Location : Finger Laterality : Left LEORA MALONEY [facility] - 06/17/2012 9:33 CDT Dependent Habits Tobacco Use/Currently Using : No Tobacco Use/Last 12 months : No Exposure to Tobacco Smoke : Other: former- quit 2009 Smoking Status : Former smoker LEORA MALONEY [facility] - 06/17/2012 9:33 CDT Tobacco Use Grid Type : Cigarettes Other Tobacco Frequency : non Last Use : 04/2010 LEORA MALONEY [facility] - 06/17/2012 9:33 CDT Caffeine Use Grid Caffeine Use : None LEORA MALONEY [facility] - 06/17/2012 9:33 CDT Recreational Drug Use Grid Drug Use : None LEORA MALONEY [facility] - 06/17/2012 9:33 CDT Allergy Allergies (Active) NKA Estimated Onset Date: Unspecified ; Created By: DUSTY CLEMONS; Reaction Status: Active ; Category: Drug ; Substance: NKA ; Type: Allergy ; Updated By: DUSTY CLEMONS; Reviewed Date: 06/17/2012 9:33 CDT Source: [facility] POWERCHART Document Id: [id number] documented in this encounter Plan of Treatment Upcoming Encounters Date Type Specialty Care Team Description 08/30/2022 Clinical Communication Admitting/Central Scheduling 09/02/2022 Comprehensive Visit Endocrinology Ricardo Winkler APRN, C.N.P., D.N.P. [address] [place] [phone] documented as of this encounter Procedures Procedure Name Priority Date/Time Associated Diagnosis Comme nts AUTOMATED Routine 06/17/2012 10:02 AM Results for this DIFFERENTIAL, B CDT procedure ar e in the results section. CBC WITH Routine 06/17/2012 10:02 AM Results for this DIFFERENTIAL, B CDT procedure ar e in the results section. documented in this encounter Results Automated Differential (06/17/2012 10:02 AM CDT) P athologist Signature Neutro % 67.1 34.0 - 71.1 POWERCHART Lymphocytes % 23.8 19.3 - 51.7 POWERCHART HX White % 6.6 4.7 - 12.5 POWERCHART HX Eos % 2.2 0.7 - 5.8 POWERCHART HX Baso % 0.3 0.1 - 1.2 POWERCHART Specimen Anatomical Collection Method Collection Time Receive d Time (Source) Location / / Volume Laterality Blood 06/17/2012 10:02 06/17/2012 AM CDT 10:02 AM CDT Karen Reyes M.D. LAB BLOOD ADD-ON Performing Organization Address City/State/[facility] Code Phon e Number POWERCHART (ABNORMAL) CBC with Differential (06/17/2012 10:02 AM CDT) Patholo gist Method Time Signature Leukocytes 11.6 (H) 3.4 - 10.5 POWERCHART X109L Erythrocytes 3.84 (L) 3.90 - POWERCHART 5.03 [id number] Hemoglobin 12.1 12.0 - POWERCHART 15.5 GDL Hematocrit 36.5 34.9 - POWERCHART 44.5 MCV 95.1 82.0 - POWERCHART 98.0 FL Platelet Count 348 150 - 450 POWERCHART X109L HX RDW 13.3 11.9 - POWERCHART 15.5 HXDifferential? Auto POWERCHART Specimen (Source) Anatomical Collection Method Collection Time Re ceived Time Location / / Volume Laterality Blood 06/17/2012 10:02 AM CDT Karen Reyes M.D. LAB BLOOD ADD-ON Performing Organization Address City/State/ZIP Code Phon e Number POWERCHART documented in this encounter Visit Diagnoses Not on filedocumented in this encounter Additional Health Concerns Assessment Noted Time PHQ-9 Depression Total Score: 13 10/22/2011 3:25 PM CS T documented as of this encounter
--- OUTSIDE RECORDS SUMMARY | 2022-08-16 21:35 | XMS_ITS | Encounter Summary ---
:1985 Author Organization [facility] Address [address] [place] [address] Care Team Providers Name Role Phone Unavailable Primary Care Provider Unavailable Encounter Details Date Type Department Care Team Description 01/20/2013 Hospital Encounter HX [facility] Karen Dial i, M.D. [address] [place] [phone] (Wo rk) Social History Tobacco [...] do you attend voodoo or Never 2021 mu-ism services? Do you [...] Sign Reading Time Taken Comments Blood Pressure 92/62 01/20/2013 1:54 PM ULTRASONIC TESTER Pulse 80 01/20/2013 1:54 PM ULTRASONIC TESTER Temperature - - Respiratory Rate 16 01/20/2013 1:54 PM ULTRASONIC TESTER Oxygen Saturation - - Inhaled Oxygen Concentration - - Weight 60 kg (132 lb 4.4 oz) 01/20/2013 1:54 PM ULTRASONIC TESTER Height - - Body Mass Index 26.31 05/19/2012 1:54 PM CDT documented in this encounter Progress Notes Karen Steinberg M.D. - 01/20/2013 1:47 PM CST [id number] CHIEF COMPLAINT/REASON FOR VISIT Check breast. HISTORY OF PRESENT ILLNESS Keily noticed a lump on the right breast a couple of days ago. It is not tender. She noticed it when she rubbed her hand against her breast. She has had no nipple discharge. She is currently in the third week of her cycle and is preparing for her period next week. She is currently using Ortho Evra patch for control. There is no family history of breast disease or breast cancer. CURRENT MEDICATIONS 1. Ortho Evra oral contraceptive patch. 2. Citalopram 20 mg once daily. VITAL SIGNS WEIGHT 60 kg TEMPERATURE 36.2 RESPIRATIONS 16 PULSE 80 BLOOD PRESSURE 92/62. PHYSICAL EXAMINATION GENERAL: She has does not appear ill or uncomfortable. NECK: Without adenopathy. LUNGS: Clear. HEART: Regular rate and rhythm. BREAST: She does not have any visible breast abnormality. There is a small rubbery nodularity in theright breast just above the areolar complex. This is a centimeter or less in diameter and fairly deep. There is nodularity also at the 8 to 9 o'clock position outside of the areolar complex. No nipple discharge. No axillary adenopathy. Left breast is without nodularity. IMPRESSION/REPORT/PLAN Breast nodules. She is in the third week of her cycle. I would like her wait 2 weeks at which time Iwill see her back for reexamination. I suspect that these lumps are cycle related and will be smaller. If not we can pursue further imaging Karen Reyes M.D./yovani DOCID: [id number] Electronically Signed By: KAREN REYES MD On: 01/21/2013 01:59 PM Source: [facility] MHSDOLBEYNONRADSYS Document Id: [id number] ASONIC TESTER documented in this encounter Miscellaneous Notes Telephone Encounter - Conversion, Historical Provider Ser - 02/15/2013 3:17 PM CDT breast lump Document Contains Addenda Addendum by LEORA MALONEY LPN on 15 February 2013 16:45:50 CDT given to front desk lead to assist with appointment Addendum by KAREN REYES MD on 15 February 2013 16:41:41 CDT From: KAREN REYES MD To: LEORA MALONEY LPN; Sent: 02/15/2013 16:41:41 CDT Subject: FW: breast lump can you take a look at my schedule or send her up front? From: ESPERANZA MARAVILLA LPN To: KAREN REYES MD; LEORA MALONEY LPN; Sent: 02/15/2013 15:17:53 CDT Subject: breast lump Caller is: ( [phone] ) Patient ( ) Mother ( ) Father ( ) Spouse ( ) Daughter ( ) Son ( ) Pharmacy () Other: Physician: Patient MRN #: Reason for Call: Patient calls today and would like to set up appointment with you to discuss the breast lump again. When would be a good time to put her in? Message: Advice/Action: Source used: ( ) Verbalizes [...] back cell phone number ( ) Source: [facility] [employer] Document Id: [id number] Miscellaneous - Karen Steinberg M.D. - 01/20/2013 2:50 PM ULTRASONIC TESTER [place] [address] Visit Information Name: KEILY NG [facility] Number: [id number] Current Date: 01/20/2013 14:50:34 Physicians Attending Provider: KAREN REYES MD Primary [...] No Appointments found Your Goals/Additional instructions: Source: [employer] Document Id: [id number] ASONIC TESTER Miscellaneous - Karen Steinberg M.D. - 01/20/2013 2:50 PM ULTRASONIC TESTER Ambulatory Depart Summary [address] [address] Visit Information Name: KEILY NG [facility] Number: [id number] Visit Date: 01/20/2013 14:50:33 Attending Provider: KAREN REYES MD Primary Care [...] your provider for clarification. Additional Information: Source: [facility] POWERCHART Document Id: [id number] ASONIC TESTER Miscellaneous - Conversion, Historical Provider Ser - 01/20/2013 1:54 PM ULTRASONIC TESTER Adult Engineering Systems Analyst Intake/History Adult Engineering Systems Analyst Intake/History Entered On: 01/20/2013 13:57 ULTRASONIC TESTER Performed On: 01/20/2013 13:54 ULTRASONIC TESTER by LEORA MALONEY [facility] Intake Chief Complaint : right breast lump Temperature Core : 36.2C(Converted to: 97.2DegF) (LOW) Peripheral Pulse Rate : 80/min Respiratory Rate : 16/min Systolic Blood Pressure : 92mmHg Diastolic Blood Pressure : 62mmHg NIBP Mean : 72mmHg BP Location : Right upper extremity Blood Pressure Cuff Size : Regular Actual Weight : 60kg(Converted to: 132lb 4oz) Dosing Weight Clinic : 60.00kg PRAVEEN GRETTA, LEORACODEY RIVAS [facility] - 01/20/2013 13:54 ULTRASONIC TESTER General Info Information Given By : Patient Languages : Scottish LEORA MALONEY EVELYN [facility] - 01/20/2013 13:54 ULTRASONIC TESTER Subjective Pain Symptoms : No LEORA MALONEY [facility] - 01/20/2013 13:54 ULTRASONIC TESTER Dependent Habits Tobacco Use/Currently Using : No Tobacco Use/Last 12 months : No Exposure to Tobacco Smoke : Other: former- quit 2009 Smoking Status : Former smoker PRAVEEN GRETTA LEORA RIVAS [facility] - 01/20/2013 13:54 ULTRASONIC TESTER Tobacco Use Grid Type : Cigarettes Other Tobacco Frequency : non Last Use : 04/2010 LEORA MALONEY [facility] - 01/20/2013 13:54 ULTRASONIC TESTER Caffeine Use Grid Caffeine Use : None LEORA MALONEY [facility] - 01/20/2013 13:54 ULTRASONIC TESTER Recreational Drug Use Grid Drug Use : None LEORA MALONEY [facility] - 01/20/2013 13:54 ULTRASONIC TESTER Allergy Allergies (Active) NKA Estimated Onset Date: Unspecified ; Created By: DUSTY CLEMONS; Reaction Status: Active ; Category: Drug ; Substance: NKA ; Type: Allergy ; Updated By: DUSTY CLEMONS; Reviewed Date: 01/20/2013 13:54 ULTRASONIC TESTER Source: [facility] POWERCHART Document Id: [id number] documented in this encounter Plan of Treatment Upcoming Encounters Date Type Specialty Care Team Description 08/30/2022 Clinical Communication Admitting/Central Scheduling 09/02/2022 Comprehensive Visit Endocrinology Ricardo Winkler APRN, C.N.P., D.N.P. [address] [place] [phone] documented as of this encounter Visit Diagnoses Not on filedocumented in this encounter Additional Health Concerns Assessment Noted Time PHQ-9 Depression Total Score: 13 10/22/2011 3:25 PM CS T documented as of this encounter
--- OUTSIDE RECORDS SUMMARY | 2022-08-16 21:35 | XMS_ITS | Encounter Summary ---
:1985 Author Organization [facility] Address [address] [place] [address] Care Team Providers Name Role Phone Unavailable Primary Care Provider Unavailable Encounter Details Date Type Department Care Team Description 11/05/2010 Hospital Encounter HX [facility] Narinder De [...] do you attend pentecostalism or Never 2021 anglican services? Do you [...] encounter Progress Notes Narinder Enriquez M.D. - 11/05/2010 12:00 AM CST [id number] CHIEF COMPLAINT / REASON FOR VISIT Routine OB visit. HISTORY OF PRESENT ILLNESS This patient is a 25-year-old G5, P 2-0-2-2 female with unknown LMP. Her EDC is 12/03/2010 set by a 7-week ultrasound. The patient is now 36-0/7 weeks. Patient presents for routine OB visit. She complains of right rib and right flank pain ongoing for last 2 days. She denies dysuria or hematuria. No burning with urination. No difficulty urinating. No leaking of urine. No vaginal bleeding. No cramping or contractions. No pelvic pressure. She reports good movement. No depression symptoms. No headaches, vision changes. CURRENT MEDICATIONS Generic vitamins one p.o. daily ALLERGIES No known drug allergies VITAL SIGNS Weight 67.0 kg, blood pressure 108/50, temperature 36.6. PHYSICAL EXAM GENERAL: Well developed, well nourished gravid female in no apparent distress. Alert and oriented times 3. Normal affect. ABDOMEN: Gravid, soft and nontender. Fundal height 36 cm. Positive heart tones 140. Vertex presentation by Ky's. SPINE: No CVA tenderness bilaterally. Palpation of ribs on the right side nontender. Palpation of the ribs on right and left side nontender. EXTREMITIES: No edema or tenderness bilaterally. GENITALIA: Cervix is closed, 4 cm thick, -1 station. Cephalic presentation confirmed. GBS culture obtained. IMPRESSION/REPORT/PLAN 1. Intrauterine at 36-0/7 weeks. Positive cardiac activity. 2. EDC is 12/03/2010 set by 7-week ultrasound. 3. History of depression, bipolar disorder, currently asymptomatic on no medication 4. History of tobacco abuse. Patient quit smoking March 2010 5. History of polycystic ovarian syndrome currently asymptomatic on no medication 6. Flank pain. Suspect muscle strain Plan 1. Reviewed the patient's symptoms and findings. I suspect muscle strain. I discussed symptomatic relief measures including warm bath, heating pads, massage and sports creams 2. I recommend Tylenol p.r.n. 3. Urine culture is obtained. I will contact the patient after 48 hours and if the urine culture is positive, I would recommend starting antibiotics at that time. 4. Encourage fluids and hydration. 5. GBS culture obtained today. 6. Return to clinic in 1 week for OB visit or be seen sooner p.r.n. 7. Labor precautions reviewed with the patient LAB Urine dip negative except for positive leukocyte esterase. Urine culture pending. GBS culture pending. JTS/mgd Signed Narinder Enriquez M.D. Obstetrics & Gynecology Electronically Signed By:NARINDER ENRIQUEZ MD On 11/07/2010 08:34 AM Source: [facility] MHSDOLBEYNONRADSYS Document Id: [id number] COLLECTOR documented in this encounter Procedure Notes Twyla Brito, RAmarisN. - 11/05/2010 2:22 PM CST Urine Dipstick Urine Dipstick Entered On: 11/05/2010 14:22 SEED COLLECTOR Performed On: 11/05/2010 14:22 SEED COLLECTOR by TWYLA CLEMONS Urine Dipstick UA Color POC: Yellow UA Appear POC: Slightly Cloudy UA Leuk POC: 1+ Small UA Nitrite POC: Negative UA Urobilinogen POC: 0.2 mg/dl UA Protein POC: Negative UA pH POC: 6 UA Blood POC: Negativ UA Spec Grav POC: 1.025 UA Ketones POC: Negative UA Bili POC: Negative UA Glucose POC: Negative TWYLA CLEMONS - 11/05/2010 14:22 SEED COLLECTOR Source: [facility] POWERCHART Document Id: [id number] SEED COLLECTOR!14 COLLECTOR documented in this encounter Miscellaneous Notes Miscellaneous - Narinder Enriquez M.D. - 11/05/2010 2:38 PM CST [place] [address] Visit Information Name: SAMUEL NG Current Date: 11/05/2010 14:38:14 Primary Care Provider: KAREN REYES MD [id number] Your Medications Here is a list of [...] Lipid Panel every 5 years Age 20-75 11/05/2010 Checks blood for good (HDL) and bad (LDL) cholesterol. Know your numbers, they are one indicator of your risk for heart attack and stroke. Vaccine: Tetanus every 10 years 12/29/2009 12/27/2019 Immunization to help prevent you from getting the serious disease Tetanus (Lockjaw). Your Upcoming Appointments Date Time Location Reason Provider 11/12/2010 14:00 [facility] Mina GALLARDO, Narinder Dockery Your Goals/Additional instructions: Source: [facility] POWERCHART Document Id: [id number] Nikhil - Narinder Enriquez M.D. - 11/05/2010 2:38 PM CST [place] [address] Visit Information Name: SAMUEL NG Current Date: 11/05/2010 14:38:14 Primary Care Provider: KAREN REYES MD [phone] SAMUEL NG has been given the following [...] to the patient and/or family, guardian/caregiver. Source: [facility] [employer] Document Id: [id number] Nikhil - Twyla Brito RAmarisNAmaris - 11/05/2010 2:14 PM CST Adult Neonatal Pediatric Nurse Intake/History Adult Neonatal Pediatric Nurse Intake/History Entered On: 11/05/2010 14:15 SEED COLLECTOR Performed On: 11/05/2010 14:14 SEED COLLECTOR by TWYLA CLEMONS Intake Temperature Core: 36.6C(Converted to: 97.9DegF) NARINDER ENRIQUEZ MD - 11/05/2010 14:41 SEED COLLECTOR Chief Complaint: Ob visit 36 weeks; pain left side Systolic Blood Pressure: 108mmHg Diastolic Blood Pressure: 50mmHg (LOW) NIBP Mean: 69mmHg BP Location: Right upper extremity Actual Weight: 67.000kg(Converted to: 147lb 11oz) Dosing Weight Clinic: 67.00kg TWYLA CLEMONS - 11/05/2010 14:14 SEED COLLECTOR Subjective Pain Symptoms: No TWYLA CLEMONS - 11/05/2010 14:14 SEED COLLECTOR Dependent Habits Tobacco Use/Currently Using: No TWYLA CLEMONS - 11/05/2010 14:14 SEED COLLECTOR Tobacco Use Grid Type: Cigarettes TWYLA CLEMONS - 11/05/2010 14:14 SEED COLLECTOR Allergies Allergies (Active) NKA Estimated Onset Date: Unspecified ; Created By: TWYLA CLEMONS; Reaction Status: Active ; Category: Drug ; Substance: NKA ; Type: Allergy ; Updated By: TWYLA CLEMONS; Reviewed Date: 10/22/2010 14:29 SEED COLLECTOR Source: [facility] [employer] Document Id: [id number] SEED COLLECTOR!3 COLLECTOR documented in this encounter Plan of Treatment Upcoming Encounters Date Type Specialty Care Team Description 08/30/2022 Clinical Communication Admitting/Central Scheduling 09/02/2022 Comprehensive Visit Endocrinology Ricardo Winkler APRN, C.N.P., D.N.P. [address] [place] [phone] documented as of this encounter Visit Diagnoses Not on filedocumented in this encounter
--- OUTSIDE RECORDS SUMMARY | 2022-08-16 21:35 | XMS_ITS | Encounter Summary ---
:1985 Author Organization [facility] Address [address] [place] [address] Care Team Providers Name Role Phone Unavailable Primary Care Provider Unavailable Encounter Details Date Type Department Care Team Description 05/19/2012 Hospital Encounter HX [facility]ILY[facility] Karen Dial i, M.D. [address] [place] [address] (Wo rk) Social History Tobacco [...] do you attend alevism or Never 2021 roman catholic services? Do [...] Reading Time Taken Comments Blood Pressure 100/60 05/19/2012 1:54 PM CDT Pulse 88 05/19/2012 1:54 PM CDT Temperature - - Respiratory Rate 16 05/19/2012 1:54 PM CDT Oxygen Saturation - - Inhaled Oxygen Concentration - - Weight 65.5 kg (144 lb 6.4 oz) 05/19/2012 1:54 PM CDT Height 151 cm (4' 11.45) 05/19/2012 1:54 PM CDT Body Mass Index 28.73 05/19/2012 1:54 PM CDT documented in this encounter H&P Notes Karen Steinberg M.D. - 05/19/2012 12:00 AM CDT [id number] CHIEF COMPLAINT/REASON FOR VISIT Review medications, review medical concerns, update preventive services CURRENT MEDICATIONS 1. Ortho-Evra patch. 2. Citalopram 20 mg once daily. ALLERGIES None SYSTEMS REVIEW Keily has been having bloating in her lower abdomen. She also complains of painful intercourse. She has lessened desire for intercourse partly because it hurts and partly because she is just not interested. She is busy and overwhelmed. She is wondering about treatment for polycystic ovarian syndrome. She has noticed her hair thinning. She is pre[place]. She is developing more acne. If she is not on the control pill, she does not have much for a period. She has not noticed whiskers on her face or excessive hair growth on her body. She is also noticing that her voice is changing. She states it is deeper and gravellier. She has noticed that she has some fluttering of her heart. She notices this especially with stress. She worries about her heart, as her father has idiopathic cardiomyopathy. No headaches, numbness or tingling. No changes in vision or hearing. No sore throat, runny nose, earache or cough. No shortness of breath or chest pain. No abdominal pain or change in bowel habits. No hematuria or dysuria. No vaginal discharge or dyspareunia. No musculoskeletal aches or pains. No lymph node swelling. No easy bruising or bleeding. No excessive thirst or hunger. No mood or behavioral difficulties. PAST MEDICAL/SURGICAL HISTORY 1. She carries a diagnosis of polycystic ovarian syndrome. 2. Depression 3. History of cervical dysplasia. 4. 5, para 3 HEALTH MAINTENANCE 1. Tobacco use: None. She was a previous smoker, but quit several months ago. 2. Pap smear updated today. 3. Chlamydia updated today. 4. Tetanus booster: 12/29/2009 SOCIAL HISTORY She has a significant other who is the father of her 2 youngest children. Her oldest child was adopted out to family members. She keeps in contact. She and her boyfriend are in the process of buying a home. FAMILY HISTORY Father has cardiomyopathy. Mother of an overdose. VITAL SIGNS HEIGHT: 151 cm WEIGHT: 65.5 kg TEMPERATURE: 36.9 RESPIRATIONS: 16 PULSE: 88 BLOOD PRESSURE: 100/60 PHYSICAL EXAM GENERAL: She is appears well and in no distress. ENT: Tympanic membranes are normal bilaterally. Oropharynx is without erythema or exudate. Inferior nasal turbinates are without injection. LYMPH NODES: Neck without adenopathy or thyromegaly. BREASTS: Without mass or nipple discharge. There is no axillary or supraclavicular adenopathy. HEART: Regular rate and rhythm without murmur. LUNGS: Clear to auscultation. ABDOMEN: Soft and nontender with no masses. RECTUM: Exam is without mass. GENITALIA: External genitalia without lesions. Cervix is normal in appearance. Samples taken for Pap smear with cytobrush and spatula. Bimanual exam reveals small nontender uterus and adnexa. EXTREMITIES: Within normal limits. IMPRESSION/REPORT/PLAN 1. Health care maintenance. She is encouraged to achieve and maintain healthy body weight through diet and exercise. She is reminded of the need for monthly self breast exam, yearly eye and regular dental visits. Screening labs today are Pap smear and chlamydia. 2. Complaints of hair thinning, fatigue and moodiness. We will check TSH, CBC today. I urged her to follow up with Dr. Enriquez regarding PCOS. 3. Depression. She is doing well on the citalopram and we will continue. 4. Contraception. She is doing well on the Ortho-Evra patch and we will continue. Karen Baltazar M.D./rosalio Electronically Signed By: KAREN BALTAZAR MD On: 06/25/2012 01:22 PM Source: [facility] MHSDOLBEYNONRADSYS Document Id: [id number] documented in this encounter Miscellaneous Notes Enmacellaneous - Karen Steinberg M.D. - 05/25/2012 1:09 PM CDT Results Notification Document Contains Addenda Addendum by THIAGO MAYFIELD on 28 May 2012 09:35:53 CDT Pt. notified. SAMI From: KAREN BALTAZAR MD To: LEORA MALONEY LPN Sent: 05/25/2012 13:09:50 CDT ! Show up: 05/25/2012 18:09:50 RUST Subject: Results Notification Actions: Notify patient of results Source: [facility] POWERCHART Document Id: [id number] Electronically signed by Wendi [facility] [employer] Director [id number] at 04/26/2017 7:10 PM CDT Miscellaneous - Karen Steinberg M.D. - 05/22/2012 6:25 PM CDT Results Notification Document Contains Addenda Addendum by THIAGO MAYFIELD on 28 May 2012 09:36:42 CDT Pt. notified. SAMI From: KAREN BALTAZAR MD To: LEORA MALONEY LPN Sent: 05/22/2012 18:25:03 CDT ! Show up: 05/22/2012 23:25:03 RUST Subject: Results Notification Actions: Notify patient of results Source: [facility] POWERCHART Document Id: [id number] Electronically signed by [facility], [facility] [employer] Director [id number] at 04/26/2017 7:10 PM CDT Nikhil - Karen Steinberg M.D. - 05/21/2012 1:48 PM CDT Results Notification Document Contains Addenda Addendum by THIAGO MAYFIELD on 25 May 2012 16:24:45 CDT Pt. notified. SAMI From: KAREN BALTAZAR MD To: LEORA MALONEY LPN Sent: 05/21/2012 13:48:55 CDT ! Show up: 05/21/2012 18:48:55 RUST Subject: Results Notification Actions: Notify patient of results Source: [facility] POWERCHART Document Id: [id number] Electronically signed by [employer], [facility] [employer] Director [id number] at 04/26/2017 7:10 PM CDT Nikhil - Karen Steinberg M.D. - 05/20/2012 9:20 AM CDT Results Notification Document Contains Addenda Addendum by THIAGO MAYFIELD on 21 May 2012 09:26:21 CDT Pt. notified and asked that she schedule a follow up lab appt. in 2 weeks to recheck her white count. SAMI From: KAREN BALTAZAR MD To: LEORA MALONEY LPN Sent: 05/20/2012 09:20:35 CDT ! Show up: 05/20/2012 14:20:35 RUST Subject: Results Notification Actions: Notify patient of results Source: [facility] POWERCHART Document Id: [id number] Electronically signed by Wendi [facility] [employer] Director [id number] at 04/26/2017 7:10 PM CDT Miscellaneous - Karen Steinberg M.D. - 05/19/2012 6:14 PM CDT Ambulatory Patient Summary [address] [address] Visit Information Name: KEILY NG Current Date: 05/19/2012 18:14:02 Physicians Attending Provider: KAREN BALTAZAR MD Primary Care Provider: KAREN BALTAZAR MD Your Medications Here is a list [...] No Appointments found Your Goals/Additional instructions: Source: [facility] [employer] Interactive[employer]ART Document Id: [id number] Miscellaneous - Karen Steinberg M.D. - 05/19/2012 6:14 PM CDT Ambulatory Depart Summary [address] [address] Visit Information Name: KEILY NG Visit Date: 05/19/2012 18:14:01 Attending Provider: KAREN BALTAZAR MD Primary Care [...] your provider for clarification. Additional Information: Source: [facility] [employer] Document Id: [id number] Miscellaneous - Wendi, Historical Provider Ser - 05/19/2012 1:54 PM CDT Adult Carpenter Railcar Intake/History Adult Carpenter Railcar Intake/History Entered On: 05/19/2012 14:00 CDT Performed On: 05/19/2012 13:54 CDT by PRAVEEN GRETTA, LEORAJONEL RIVAS LPN Intake Chief Complaint : pap smear Temperature Core : 36.9C(Converted to: 98.4DegF) Peripheral Pulse Rate : 88/min Respiratory Rate : 16/min Systolic Blood Pressure : 100mmHg Diastolic Blood Pressure : 60mmHg NIBP Mean : 73mmHg BP Location : Left upper extremity Blood Pressure Cuff Size : Regular Height : 151cm(Converted to: 4ft 11inch(es), 59.45inch(es)) Actual Weight : 65.5kg(Converted to: 144lb 6oz) Dosing Weight Clinic : 65.50kg Clinic BSA : 1.66 Body Mass Index : 28.73kg/m2 LEORA MALONEY EVELYN PIRES - 05/19/2012 13:54 CDT Subjective Pain Symptoms : No PRAVEEN GRETTA, LEORACDOEY RIVAS LPN - 05/19/2012 13:54 CDT Dependent Habits Tobacco Use/Currently Using : No Exposure to Tobacco Smoke : Other: former- quit 2009 Smoking Status : Former smoker PRAVEEN GRETTA, LEORAJONEL RIVAS LPN - 05/19/2012 13:54 CDT Tobacco Use Grid Type : Cigarettes Other Tobacco Frequency : non Last Use : 05/03 PRAVEEN GRETTAJOSELEORAJONEL RIVAS LPN - 05/19/2012 13:54 CDT Caffeine Use Grid Caffeine Use : None PRAVEEN GRETTA, LEORACODEY RIVAS LPN - 05/19/2012 13:54 CDT Recreational Drug Use Grid Drug Use : None PRAVEEN GLYNN LEORACODEY RIVAS LPN - 05/19/2012 13:54 CDT Allergy Allergies (Active) NKA Estimated Onset Date: Unspecified ; Created By: DUSTY CLEMONS; Reaction Status: Active ; Category: Drug ; Substance: NKA ; Type: Allergy ; Updated By: DUSTY CLEMONS; Reviewed Date: 05/19/2012 13:53 CDT Source: [facility] POWERCHART Document Id: [id number] Miscellaneous - Conversion, Historical Provider Ser - 05/19/2012 1:54 PM CDT Health Assessment Health Assessment Entered On: 05/19/2012 14:01 CDT Performed On: 05/19/2012 13:54 CDT by JOSE MALONEYJONEL RIVAS LPN Health Assessment Complete Health Assessment Complete or Modified : Annual Health Assessment Annual Health Assessment Completed : Yes LEORA MALONEY LEXIS - 05/19/2012 13:54 CDT Nutrition Nutrition Risk Factors by History Adult : None LEORA MALONEY LEXIS - 05/19/2012 13:54 CDT Functional Current Daily Living Assistance : None LEORA MALONEY LEXIS - 05/19/2012 13:54 CDT Dependent Habits Tobacco Use/Currently Using : No Tobacco Use/Last 12 months : No Exposure to Tobacco Smoke : Other: former- quit 2009 Smoking Status : Former smoker LEORA MALONEY EVELYN PIRES - 05/19/2012 13:54 CDT Tobacco Use Grid Type : Cigarettes Other Tobacco Frequency : non Last Use : 04/2010 LEORA MALONEY EVELYN PIRES - 05/19/2012 13:54 CDT Caffeine Use Grid Caffeine Use : None LEORA MALONEY EVELYN PIRES - 05/19/2012 13:54 CDT Recreational Drug Use Grid Drug Use : None LEORA MALONEY EVELYN PIRES - 05/19/2012 13:54 CDT Psychosocial Domestic Abuse Concerns : None LEORA MALONEY EVELYN PIRES - 05/19/2012 13:54 CDT Advance Directive Advanced Directives : No LEORA MALONEY L[place]IS - 05/19/2012 13:54 CDT Educ Needs Learning Style Preference Adult Grid Patient : Printed materials Family : Printed materials LEORA MALONEY L[place]IS - 05/19/2012 13:54 CDT Source: [facility] POWERCHART Document Id: [id number] documented in this encounter Plan of Treatment Upcoming Encounters Date Type Specialty Care Team Description 08/30/2022 Clinical Communication Admitting/Central Scheduling 09/02/2022 Comprehensive Visit Endocrinology Ricardo Winkler APRN, C.N.P., D.N.P. [address] [place] [phone] documented as of this encounter Procedures Procedure Name Priority Date/Time Associated Comments Diagnosis C TRACH AMP SRC Routine 05/19/2012 2:46 PM Result s for this CDT procedure are i n the results section. HX CHLAMYDIA Routine 05/19/2012 2:46 PM Results f or this TRACHOMATIS AMPLIFIED CDT proced ure are in DNA-ID the results section. THINPREP SCREEN HPV Routine 05/19/2012 2:46 PM Re sults for this REFLEX CDT procedure are i n the results section. AUTOMATED Routine 05/19/2012 2:42 PM Results f or this DIFFERENTIAL, B CDT procedure ar e in the results section. CBC WITH Routine 05/19/2012 2:42 PM Results f or this DIFFERENTIAL, B CDT procedure ar e in the results section. THYROID-STIMULATING Routine 05/19/2012 2:42 PM Re sults for this HORMONE-SENSITIVE CDT procedure are in (S-TSH) the results section. BASIC METABOLIC Routine 05/19/2012 2:42 PM Result s for this PANEL, S/P CDT procedure are i n the results section. documented in this encounter Results HX Hx Chlamydia Trachomatis Amplified Dna-Id (05/19/2012 2:46 PM CDT) [facility] Method Time Signature Chlamydia Negative POWERCHART Trachomatis Amplied DNA Specimen (Source) Anatomical Collection Method Collection Time Re ceived Time Location / / Volume Laterality 05/19/2012 2:46 PM CDT Narrative POWERCHART - 05/21/2012 3:38 PM CDT Test Performed by: [address] [address] Resizer Operator: Andi hitchcock III, M.D. Karen Reyes M.D. LAB HISTORICAL ORDERS Performing Organization Address City/State/ZIP Code Phon e Number POWERCHART HX-C trach Amp Src (05/19/2012 2:46 PM CDT) P athologist Signature HXC trach Amp cervix POWERCHART Src[place] Specimen (Source) Anatomical Collection Method Collection Time Re ceived Time Location / / Volume Laterality 05/19/2012 2:46 PM CDT Karen Reyes M.D. LAB HISTORICAL ORDERS Performing Organization Address City/State/ZIP Code Phon e Number POWERCHART Pathology ThinPrep Screen HPV Reflex (05/19/2012 2:46 PM CDT) [facility] gist Method Time Signature Interpretation [id number] POWERCHART HXThPrep Scrn See Comment POWERCHART Fnl[facility] Comment: A. ??ThinPrep Pap Test Screen (Cervical/ Endocervical HPV Reflex): Satisfactory for evaluation. Negative for intraepithelial lesion or m alignancy. HXThPrep Scrn Cyto-[place] See Comment STUART RCHART Comment: Report electronically signed by GERTRUDE Arroyo(ASCP) 05/25/2012 08:03 Interpreted by: GERTRUDE Arroyo(ASCP) HX Spec [facility] See Comment POWERCHART Comment: A. ??ThinPrep Pap Test Screen (Cervical/ Endocervical HPV Reflex): Received cloudy specimen in ThinPrep via l. Test Performed by: [place] [address] Resizer Operator: Andi hitchcock III, M.D. Specimen (Source) Anatomical Collection Method Collection Time Re ceived Time Location / / Volume Laterality Cervix/Endocervix 05/19/2012 2:46 PM CDT Kaern Reyes M.D. LAB PAP PATHDX ORDERAB LES Performing Organization Address City/[facility]/ZIP Code Phon e Number POWERCHART Automated Differential (05/19/2012 2:42 PM CDT) P athologist Signature Neutro % 70.2 34.0 - 71.1 POWERCHART Lymphocytes % 22.2 19.3 - 51.7 POWERCHART HX [place] % 6.0 4.7 - 12.5 POWERCHART HX Eos % 1.3 0.7 - 5.8 POWERCHART HX Baso % 0.3 0.1 - 1.2 POWERCHART Specimen Anatomical Collection Method Collection Time Receive d Time (Source) Location / / Volume Laterality Blood 05/19/2012 2:42 PM 2 2:42 CDT PM CDT Karen Reyes M.D. LAB BLOOD ADD-ON Performing Organization Address City/State/ZIP Code Phon e Number POWERCHART (ABNORMAL) CBC with Differential (05/19/2012 2:42 PM CDT) Patholo gist Method Time Signature Leukocytes 14.8 (H) 3.4 - 10.5 POWERCHART X109L Erythrocytes 4.02 3.90 - POWERCHART 5.03 R1051I Hemoglobin 12.4 12.0 - POWERCHART 15.5 GDL Hematocrit 37.9 34.9 - POWERCHART 44.5 MCV 94.3 82.0 - POWERCHART 98.0 FL Platelet Count 409 150 - 450 POWERCHART X109L HX RDW 12.9 11.9 - POWERCHART 15.5 HXDifferential? Auto POWERCHART Specimen (Source) Anatomical Collection Method Collection Time Re ceived Time Location / / Volume Laterality Blood 05/19/2012 2:42 PM CDT Karen Reyes M.D. LAB BLOOD ADD-ON Performing Organization Address City/[facility] Phon e Number POWERCHART (ABNORMAL) BMP (Basic Metabolic Panel) (05/19/2012 2:42 PM CDT) P athologist Signature BUN (Blood Urea 9 6 - 20 POWERCHART Nitrogen), S MGDL Creatinine 0.6 (L) 0.7 - 1.2 POWERCHART MGDL Glucose 82 POWERCHART Potassium, S 4.3 3.5 - 4.8 POWERCHART MMOLL Sodium, S 141 135 - 145 POWERCHART MMOLL Chloride, S 103 100 - 108 POWERCHART MMOLL CO2 Total 29 22 - 29 POWERCHART MMOLL Calcium, Total, 9.3 8.5 - 10.5 POWERCHART S MGDL BUN/Creatinine 15 POWERCHART Ratio HXeGFR (MDRD) >60 MLMIN POWERCHART eGFR >60 MLMIN POWERCHART Black/ Specimen (Source) Anatomical Collection Method Collection Time Re ceived Time Location / / Volume Laterality Blood 05/19/2012 2:42 PM CDT Karen Reyes M.D. LAB BLOOD ADD-ON Performing Organization Address City/[facility]/ZIP Code Phon e Number POWERCHART Thyroid-Stimulating Hormone-Sensitive (s-TSH) (05/19/2012 2:42 PM CDT) P athologist Signature TSH, Sensitive 1.5 0.3 - 5.0 POWERCHART LIZ Comment: Test Performed by: [place] [id number] Resizer Operator: Andi hitchcock III, M.D. Specimen (Source) Anatomical Collection Method Collection Time Re ceived Time Location / / Volume Laterality Blood 05/19/2012 2:42 PM CDT Karen Reyes M.D. LAB BLOOD ADD-ON Performing Organization Address City/State/ZIP Code Phon e Number POWERCHART documented in this encounter Visit Diagnoses Not on filedocumented in this encounter Additional Health Concerns Assessment Noted Time PHQ-9 Depression Total Score: 13 10/22/2011 3:25 PM CS T documented as of this encounter
--- OUTSIDE RECORDS SUMMARY | 2022-08-16 21:35 | XMS_ITS | Encounter Summary ---
:1985 Author Organization [facility] Address [address] [place] [address] Care Team Providers Name Role Phone Unavailable Primary Care Provider Unavailable Encounter Details Date Type Department Care Team Description 12/25/2012 Hospital Encounter HX NO MAPPING Frank Lebron M. D. Social History Tobacco Use Types Packs/Day Years [...] do you attend bahai or Never 2021 bahai services? Do you [...] Ricardo Winkler, SILVIO, C.N.P., D.N.P. [address] [place] [phone] documented as of this encounter Visit Diagnoses Not on filedocumented in this encounter Additional Health Concerns Assessment Noted Time PHQ-9 Depression Total Score: 13 10/22/2011 3:25 PM CS T documented as of this encounter
--- OUTSIDE RECORDS SUMMARY | 2022-08-16 21:35 | XMS_ITS | Encounter Summary ---
:1985 Author Organization [facility] Address [address] [place] [address] Care Team Providers Name Role Phone Unavailable Primary Care Provider Unavailable Encounter Details Date Type Department Care Team Description 10/22/2010 Hospital Encounter HX [facility] Narinder De [...] do you attend gnosticism or Never 2021 adventist services? Do you [...] encounter Progress Notes Narinder Enriquez M.D. - 10/22/2010 12:00 AM CST [id number] CHIEF COMPLAINT/ REASON FOR VISIT Routine OB visit. HISTORY OF PRESENT ILLNESS This patient is a 25-year-old G5, P 2-0-2-2 female with unknown LMP. Her EDC is 12/03/2010 set by 7-week ultrasound. The patient is now 34-0/7 weeks. Patient presents for routine OB visit. She is doing well. She has no complaints. She denies cramping, contractions. No leaking of fluid, vaginal bleeding. She reports good movement. No headaches, vision changes. No depression symptoms. No suicidal thoughts. CURRENT MEDICATIONS Generic vitamins one p.o. daily ALLERGIES No known drug allergies VITAL SIGNS Weight 66.5 kg, blood pressure 108/60. PHYSICAL EXAM GENERAL: Well developed, well nourished gravid female in no apparent distress. Alert and oriented times 3. Normal affect. ABDOMEN: Gravid, soft and nontender. Fundal height 34 cm, positive heart tones 132. Vertex presentation by Ky's. EXTREMITIES: No edema or tenderness. IMPRESSION/REPORT/PLAN 1. Intrauterine at 34-0/7 weeks. Positive cardiac activity. 2. EDC is 12/03/2010 set by seven week ultrasound. 3. History of depression, bipolar disorder, currently asymptomatic on medication 4. History of tobacco abuse. Patient quit smoking March 2010 5. History of polycystic ovarian syndrome currently asymptomatic on no medications Plan 1. Return to clinic in 2 weeks for OB visit or be seen sooner p.r.n. 2. Plan GBS culture at 36 weeks per protocol. 3. Routine OB precautions, recommendations, and instructions are reviewed with patient including movement and kick counts. JTS/mgd Signed Narinder Enriquez M.D. Obstetrics & Gynecology Electronically Signed By:NARINDER ENRIQUEZ MD On 10/24/2010 08:14 AM Source: [facility] [id number] Document Id: [id number] CONSULTANT documented in this encounter Miscellaneous Notes Miscellaneous - Narinder Enriquez M.D. - 10/22/2010 3:07 PM CST [place] [address] Visit Information Name: SAMUEL NG Current Date: 10/22/2010 15:07:13 Primary Care Provider: KAREN REYES MD [phone] Your Medications Here is a list of [...] Lipid Panel every 5 years Age 20-75 10/22/2010 Checks blood for good (HDL) and bad (LDL) cholesterol. Know your numbers, they are one indicator of your risk for heart attack and stroke. Vaccine: Tetanus every 10 years 12/29/2009 12/27/2019 Immunization to help prevent you from getting the serious disease Tetanus ([place]). Your Upcoming Appointments Date Time Location Reason Provider 11/05/2010 14:00 [facility] REGULATORY COORDINATOR OB Narinder Enriquez MD Your Goals/Additional instructions: Source: [facility] [employer] Document Id: [id number] Electronically signed by Conversion, [facility] [employer] [id number] at 04/28/2017 4:46 AM CDT Miscellzoe - Narinder Enriquez M.D. - 10/22/2010 3:07 PM CST [place] [address] Visit Information Name: SAMUEL NG Current Date: 10/22/2010 15:07:12 Primary Care Provider: KAREN REYES MD [id number] SAMUEL NG has been given the following [...] and/or family, guardian/caregiver. [facility] Document Id: [id number] Electronically signed by Conversion, [facility] [employer] [id number] at 04/28/2017 4:46 AM CDT Miscellaneous - Conversion, Historical Provider Ser - 10/22/2010 2:29 PM EDI CONSULTANT Adult Consumer Services Consultant Intake/History Adult Consumer Services Consultant Intake/History Entered On: 10/22/2010 14:30 EDI CONSULTANT Performed On: 10/22/2010 14:29 EDI CONSULTANT by KISHAN HOLLINGSWORTH LPN Intake Chief Complaint: OB check @ 34 weeks LMP Date: 02-26-10 Systolic Blood Pressure: 108mmHg Diastolic Blood Pressure: 60mmHg NIBP Mean: 76mmHg BP Location: Left upper extremity Actual Weight: 66.500kg Actual Weight Conversion to Pounds: 146.300lb Dosing Weight Clinic: 66.50kg KISHAN HOLLINGSWORTH LEXIS - 10/22/2010 14:29 EDI CONSULTANT Subjective Pain Symptoms: No KISHAN HOLLINGSWORTH LEXIS - 10/22/2010 14:29 EDI CONSULTANT Dependent Habits Tobacco Use/Currently Using: No KISHAN HOLLINGSWORTH LEXIS - 10/22/2010 14:29 EDI CONSULTANT Tobacco Use Grid Type: Cigarettes KISHAN HOLLINGSWORTH LEXIS - 10/22/2010 14:29 EDI CONSULTANT Allergies Allergies (Active) NKA Estimated Onset Date: Unspecified ; Created By: DUSTY CLEMONS; Reaction Status: Active ; Category: Drug ; Substance: NKA ; Type: Allergy ; Updated By: DUSTY CLEMONS; Reviewed Date: 10/22/2010 14:29 EDI CONSULTANT Source: [facility] [employer] Document Id: [id number] EDI CONSULTANT!18 documented in this encounter Plan of Treatment Upcoming Encounters Date Type Specialty Care Team Description 08/30/2022 Clinical Communication Admitting/Central Scheduling 09/02/2022 Comprehensive Visit Endocrinology Ricardo Winkler APRN, C.N.P., D.N.P. [address] [place] [phone] documented as of this encounter Visit Diagnoses Not on filedocumented in this encounter
--- OUTSIDE RECORDS SUMMARY | 2022-08-16 21:35 | XMS_ITS | Encounter Summary ---
:1985 Author Organization [facility] Address [address] [place] [address] Care Team Providers Name Role Phone Unavailable Primary Care Provider Unavailable Encounter Details Date Type Department Care Team Description 01/22/2012 Hospital Encounter HX [facility] FAMILYPRA Augustina Graff, CATAPULT AND ARRESTING GEAR OFFICER, C.N.P. [address] [place] [address] (Wo rk) Social History Tobacco [...] do you attend jewish or Never 2021 protestant services? Do you [...] Reading Time Taken Comments Blood Pressure 102/58 01/22/2012 4:12 PM PROMOTIONAL MODEL Pulse 100 01/22/2012 4:12 PM PROMOTIONAL MODEL Temperature - - Respiratory Rate 16 01/22/2012 4:12 PM PROMOTIONAL MODEL Oxygen Saturation - - Inhaled Oxygen Concentration - - Weight 65.6 kg (144 lb 10 oz) 01/22/2012 4:12 PM PROMOTIONAL MODEL Height 150 cm (4' 11.06) 01/22/2012 4:12 PM PROMOTIONAL MODEL Body Mass Index 29.16 01/22/2012 4:12 PM PROMOTIONAL MODEL documented in this encounter Progress Notes Alfredo Graff, CATAPULT AND ARRESTING GEAR OFFICER, C.N.P. - 01/22/2012 12:00 AM CST [id number] CHIEF COMPLAINT/ REASON FOR VISIT Sinus congestion with postnasal drip and cough. HISTORY OF PRESENT ILLNESS Keily states she has had sinus congestion with postnasal drip and cough for the past week. She denies fever. She has been taking some Advil Sinus which has helped a little bit. CURRENT MEDICATIONS See depart summary from today ALLERGIES None PREVENTIVE: Due for fasting lipids advised to return VITAL SIGNS See EMR PHYSICAL EXAM Well developed well nourished female in no acute distress. SKIN: Warm and dry. ENT: TMs are dull. Nares congested with yellow mucus. Tenderness over the maxillary sinus. Throat slightly erythematous mild anterior cervical lymphadenopathy. HEART: Regular rate and rhythm. LUNGS: Clear to auscultation. ABDOMEN: Soft, nontender, hepatosplenomegaly. IMPRESSION/REPORT/PLAN Acute sinusitis. Zithromax Z Gilbert encourage fluids, Tylenol for fever discomfort and recheck if symptoms do not improve SJM/clf Signed Alfredo Palmer. Adelso, MSN, DIRECTOR STAFFING, CDE Family Nurse Practitioner Electronically Signed By: ALFREDO GRAFF CNP On: 01/27/2012 08:10 AM Source: [facility] [id number] Document Id: [id number] OTIONAL MODEL documented in this encounter Miscellaneous Notes Miscellaneous - Alfredo Graff APRN, C.N.P. - 01/22/2012 4:27 PM CST Ambulatory Patient Summary [address] [address] Visit Information Name: KEILY NG Current Date: 01/22/2012 16:27:44 Physicians Attending Provider: ALFREDO GRAFF CNP Primary Care Provider: KAREN REYES MD Your Medications Here is a list of your medications. It is important to take your medications as directed. Use a pillbox or chart to help remind you to take your medications. Please let your doctor or nurse know if you have problems taking your medications. Medication/Strength Dose Route Frequency Indications/Special Instructions/Comments azithromycin (Azithromycin 5 Day Dose Pack 250 mg oral tablet) 2 tablets on day 1, then 1 tablet on days 2-5 Oral as directed for 5 Days citalopram (citalopram 20 mg oral tablet) [...] Depressive disorder, major, recurrent episode Active Your Recommendations We want to make sure [...] Chlamydia every 1 year Females Age 16-24 10/22/2011 10/21/2012 Health Assessment every 1 year 01/22/2012 01/21/2013 Screening Pap Smear every 3 years Women 21-65 12/13/2010 12/12/2013 Checks for signs of cancer of the cervix. Lipid Panel every 5 years Age 20-75 01/22/2012 Checks blood for good (HDL) and bad (LDL) cholesterol. Know your numbers, they are one indicator of your risk for heart attack and stroke. Vaccine: Tetanus every 10 years 12/29/2009 12/27/2019 Immunization to help prevent you from getting the serious disease Tetanus (Lockjaw). Your Upcoming Appointments Date Time Location Reason Provider No Appointments found Your Goals/Additional instructions: [facility] Document Id: [id number] OTIONAL MODEL Miscellaneous - Alfredo Graff APRN, C.N.P. - 01/22/2012 4:27 PM CST Ambulatory Depart Summary [address] [address] Visit Information Name: KEILY NG Visit Date: 01/22/2012 16:27:43 Attending Provider: ALFREDO GRAFF [facility] Primary Care Provider: KAREN REYES MD KEILY NG has been given the following list of medications: Your Medications It is important to take your medications as directed. Use a pill box or chart to help remind you to take your medications. Please let your doctor or nurse know if you have problems taking your medications. Medication/Strength Dose Route Frequency Indications/Special Instructions/Comments azithromycin (Azithromycin 5 Day Dose Pack 250 mg oral tablet) 2 tablets on day 1, then 1 tablet on days 2-5 Oral as directed for 5 Days citalopram (citalopram 20 mg oral tablet) 20 mg Oral once a day Attention: If you have any medications at home that are not on this list, DO NOT take them until youcontact your provider for clarification. Additional Information: [facility] Document Id: [id number] OTIONAL MODEL Miscellaneous - Terri Hollingsworth L.P.N. - 01/22/2012 4:16 PM CST Health Assessment Health Assessment Entered On: 01/22/2012 16:17 PROMOTIONAL MODEL Performed On: 01/22/2012 16:16 PROMOTIONAL MODEL by TERRI HOLLINGSWORTH Health Assessment Complete Health Assessment Complete or Modified : Annual Health Assessment Annual Health Assessment Completed : Yes TERRI HOLLINGSWORTH DYANA - 01/22/2012 16:16 PROMOTIONAL MODEL Nutrition Nutrition Risk Factors by History Adult : None TERRI HOLLINGSWORTHN - 01/22/2012 16:16 PROMOTIONAL MODEL Functional Current Daily Living Assistance : None TERRI HOLLINGSWORTHN - 01/22/2012 16:16 PROMOTIONAL MODEL Dependent Habits Tobacco Use/Currently Using : No Smoking Status : Former smoker TERRI HOLLINGSWORTHN - 01/22/2012 16:16 PROMOTIONAL MODEL Tobacco Use Grid Type : Cigarettes Other Tobacco Frequency : non TERRI HOLLINGSWORTH DYANA - 01/22/2012 16:16 PROMOTIONAL MODEL Alcohol Use : No TERRI HOLLINGSWORTHN - 01/22/2012 16:16 PROMOTIONAL MODEL Caffeine Use Grid Caffeine Use : None TERRI HOLLINGSWORTHN - 01/22/2012 16:16 PROMOTIONAL MODEL Recreational Drug Use Grid Drug Use : None TERRI HOLLINGSWORTH DYANA - 01/22/2012 16:16 PROMOTIONAL MODEL Psychosocial Domestic Abuse Concerns : None TERRI HOLLINGSWORTHN - 01/22/2012 16:16 PROMOTIONAL MODEL Advance Directive Advanced Directives : No TERRI HOLLINGSWORTH DYANA - 01/22/2012 16:16 PROMOTIONAL MODEL Educ Needs Learning Style Preference Adult Grid Patient : Verbal explanation Family : Verbal explanation TERRI HOLLINGSWORTH DYANA - 01/22/2012 16:16 PROMOTIONAL MODEL Source: [facility] POWERCHART Document Id: [id number] PROMOTIONAL MODEL!30 OTIONAL MODEL Miscellaneous - Terri Hollingsworth L.P.N. - 01/22/2012 4:12 PM CST Adult Game Manager Intake/History Adult Game Manager Intake/History Entered On: 01/22/2012 16:15 PROMOTIONAL MODEL Performed On: 01/22/2012 16:12 PROMOTIONAL MODEL by TERRI HOLLINGSWORTH Intake Chief Complaint : cough, drainage, ears plugged Temperature Core : 36.4C(Converted to: 97.5DegF) (LOW) Peripheral Pulse Rate : 100/min Respiratory Rate : 16/min Systolic Blood Pressure : 102mmHg Diastolic Blood Pressure : 58mmHg NIBP Mean : 73mmHg Height : 150cm(Converted to: 4ft 11inch(es), 59.06inch(es)) Actual Weight : 65.6kg(Converted to: 144lb 10oz) Dosing Weight Clinic : 65.60kg Clinic BSA : 1.65 Body Mass Index : 29.16kg/m2 TERRI HOLLINGSWORTH - 01/22/2012 16:12 PROMOTIONAL MODEL Subjective Pain Symptoms : No TERRI HOLLINGSWORTH - 01/22/2012 16:12 PROMOTIONAL MODEL Dependent Habits Tobacco Use/Currently Using : No Smoking Status : Former smoker TERRI HOLLINGSWORTH - 01/22/2012 16:12 PROMOTIONAL MODEL Tobacco Use Grid Type : Cigarettes Other Tobacco Frequency : non TERRI HOLLINGSWORTH - 01/22/2012 16:12 PROMOTIONAL MODEL Caffeine Use Grid Caffeine Use : None TERRI HOLLINGSWORTH - 01/22/2012 16:12 PROMOTIONAL MODEL Recreational Drug Use Grid Drug Use : None TERRI HOLLINGSWORTH - 01/22/2012 16:12 PROMOTIONAL MODEL Allergy Allergies (Active) NKA Estimated Onset Date: Unspecified ; Created By: DUSTY CLEMONS; Reaction Status: Active ; Category: Drug ; Substance: NKA ; Type: Allergy ; Updated By: DUSTY CLEMONS; Reviewed Date: 04/18/2011 11:20 CDT Source: [facility] POWERCHART Document Id: [id number] PROMOTIONAL MODEL!29 OTIONAL MODEL Miscellaneous - Alfredo Graff APRN, CAmarisNAmarisPAmaris - 10/22/2011 4:31 PM CST Quality Measures Quality Measures Entered On: 01/22/2012 16:32 PROMOTIONAL MODEL Performed On: 10/22/2011 16:31 PROMOTIONAL MODEL by ALFREDO GRAFF CNP Depression PHQ-9 Score : 13 ALFREDO GRAFF CNP - 01/22/2012 16:31 PROMOTIONAL MODEL Source: [facility] POWERCHART Document Id: [id number] PROMOTIONAL MODEL!3 OTIONAL MODEL documented in this encounter Plan of Treatment Upcoming Encounters Date Type Specialty Care Team Description 08/30/2022 Clinical Communication Admitting/Central Scheduling 09/02/2022 Comprehensive Visit Endocrinology Ricardo Winkler APRN, C.N.P., D.N.P. [address] [place] [phone] documented as of this encounter Visit Diagnoses Not on filedocumented in this encounter Additional Health Concerns Assessment Noted Time PHQ-9 Depression Total Score: 13 10/22/2011 3:25 PM CS T documented as of this encounter
--- OUTSIDE RECORDS SUMMARY | 2022-08-16 21:35 | XMS_ITS | Encounter Summary ---
:1985 Author Organization [facility] Address [address] [place] [address] Care Team Providers Name Role Phone Unavailable Primary Care Provider Unavailable Encounter Details Date Type Department Care Team Description 09/21/2010 Hospital Encounter HX [facility] Jhonny Enriquez M.D . Social [...] do you attend mormon or Never 2021 druze services? Do you [...] Endocrinology Ricardo Winkler, SILVIO, C.N.P., D.N.P. [address] [place] [phone] documented as of this encounter Visit Diagnoses Not on filedocumented in this encounter
--- OUTSIDE RECORDS SUMMARY | 2022-08-16 21:35 | XMS_ITS | Encounter Summary ---
:[address] [facility] Address [address] [place] [address] Care Team Providers Name Role Phone Unavailable Primary Care Provider Unavailable Encounter Details Date Type Department Care Team Description 02/18/2013 Hospital Encounter HX [facility] FAMILY[facility]A Karen Dial i, M.D. [address] [place] [address] (Wo rk) Social History Tobacco [...] do you attend spiritism or Never 2021 religion services? Do you [...] Reading Time Taken Comments Blood Pressure 100/60 02/18/2013 10:23 AM CDT Pulse 84 02/18/2013 10:23 AM CDT Temperature - - Respiratory Rate 16 02/18/2013 10:23 AM CDT Oxygen Saturation - - Inhaled Oxygen Concentration - - Weight 61.5 kg (135 lb 9.3 oz) 02/18/2013 10:23 AM CDT Height 150 cm (4' 11.06) 02/18/2013 10:23 AM CDT Body Mass Index 27.33 02/18/2013 10:23 AM CDT documented in this encounter Progress Notes Karen Steinberg M.D. - 02/18/2013 9:58 AM CDT [id number] CHIEF COMPLAINT/REASON FOR VISIT Breast lumps. HISTORY OF PRESENT ILLNESS I saw Keily on 01/20 with right breast lumps. It was just before her period and I asked her to return just after her period. She was not able to and comes in today 1 month later. It is again just before her period. She stated however that throughout the month she has noticed no change in her breast lumps. There has been no waxing and waning in size or tenderness. CURRENT MEDICATIONS Medications are reviewed and are as outlined in the EMR. VITAL SIGNS HEIGHT: 150 cm. WEIGHT: 61.5 kg. TEMPERATURE: 36.2. RESPIRATIONS: 16. PULSE: 84. BLOOD PRESSURE: 100/64. PHYSICAL EXAM BREASTS: On the right breast, the previously noted areas of nodularity, just above the areolar complex, and at the 7 TO 8 o'clock position, just outside the areolar complex, are again identified. They are not particularly tender for her. They are marked with a sharpie. There are similar areas on the left breast in the upper, outer quadrant. This is also marked with a sharpie. IMPRESSION/REPORT/PLAN Breast masses, suspect fibroglandular. They however do not seem to have fluctuated in size throughout her cycle. We will further evaluate with imaging with breast ultrasound. Karen Reyes M.D./[place] Electronically Signed By: KAREN REYES MD On: 02/23/2013 05:28 PM Source: [facility] MHSDOLBEYNONRADSYS Document Id: [id number] documented in this encounter Miscellaneous Notes Miscellaneous - Karen Steinberg M.D. - 02/18/2013 9:41 PM CDT Ambulatory Patient Summary [address] [address] Visit Information Name: KEILY NG [facility] Number: [id number] Current Date: 02/18/2013 21:41:00 Physicians Attending Provider: KAREN REYES MD Primary [...] Upcoming Appointments Date Time Location Reason Provider 02/19/2013 10:30 [facility] Ultrasound breast lumps Your Goals/Additional instructions: Source: [facility] POWERCHART Document Id: [id number] Miscellaneous - Karen Steinberg M.D. - 02/18/2013 9:40 PM CDT Ambulatory Depart Summary [address] [address] Visit Information Name: KEILY NG [facility] Number: [id number] Visit Date: 02/18/2013 21:40:59 Attending Provider: KAREN REYES MD Primary Care [...] your provider for clarification. Additional Information: Source: [facility] CaptimoCHART Document Id: [id number] Miscellaneous - Wendi, Historical Provider Ser - 02/18/2013 10:26 AM CDT Health Assessment Health Assessment Entered On: 02/18/2013 10:26 CDT Performed On: 02/18/2013 10:26 CDT by LEORA MALONEY LPN Health Assessment Complete Health Assessment Complete or Modified : Annual Health Assessment Annual Health Assessment Completed : Yes LEORA MALONEY EVELYN PIRES - 02/18/2013 10:26 CDT Nutrition Nutrition Risk Factors by History Adult : None LEORA MALONEY LPN - 02/18/2013 10:26 CDT Functional Current Daily Living Assistance : None PRAVEEN JOSE GLYNNJONEL RIVAS LPN - 02/18/2013 10:26 CDT Dependent Habits Tobacco Use/Currently Using : No Exposure to Tobacco Smoke : Other: former- quit 2009 Smoking Status : Former smoker LEORA MALONEY LPN - 02/18/2013 10:26 CDT Tobacco Use Grid Type : Cigarettes Other Tobacco Frequency : non Last Use : 04/2010 LEORA MALONEY LPN - 02/18/2013 10:26 CDT Caffeine Use Grid Caffeine Use : None LEORA MALONEY LPN - 02/18/2013 10:26 CDT Recreational Drug Use Grid Drug Use : None PRAVEEN GLYNN LEORA RIVAS LPN - 02/18/2013 10:26 CDT Psychosocial Domestic Abuse Concerns : None LEORA MALONEY LPN - 02/18/2013 10:26 CDT Advance Directive Advanced Directives : No PRAVEEN GLYNNGARCÍALEORACODEY RIVAS LPN - 02/18/2013 10:26 CDT Educ Needs Learning Style Preference Adult Grid Patient : Printed materials Family : Printed materials PRAVEEN GRETTALEORA WRIGHT LPN - 02/18/2013 10:26 CDT Source: [facility] POWERCHART Document Id: [id number] Miscellaneous - Conversion, Historical Provider Ser - 02/18/2013 10:23 AM CDT Adult Administrative Support Assoc Intake/History Adult Administrative Support Assoc Intake/History Entered On: 02/18/2013 10:25 CDT Performed On: 02/18/2013 10:23 CDT by [facility] GRETTA, LEORA EVELYN CONTROLLER INSTRUCTOR Intake Chief Complaint : recheck right breast lump Temperature Core : 36.2DegC(Converted to: 97.2DegF) (LOW) Peripheral Pulse Rate : 84/min Respiratory Rate : 16/min Systolic Blood Pressure : 100mmHg Diastolic Blood Pressure : 60mmHg NIBP Mean : 73mmHg BP Location : Right upper extremity Blood Pressure Cuff Size : Regular Height : 150cm(Converted to: 4ft 11inch(es), 59.06inch(es)) Actual Weight : 61.5kg(Converted to: 135lb 9oz) Dosing Weight Clinic : 61.50kg Clinic BSA : 1.60 Body Mass Index : 27.33kg/m2 LEORA MALONEY [facility] - 02/18/2013 10:23 CDT General Info Information Given By : Patient Languages : Bhutanese LEORA MALONEY [facility] - 02/18/2013 10:23 CDT Subjective Pain Symptoms : No LEORA MALONEY [facility] - 02/18/2013 10:23 CDT Dependent Habits Tobacco Use/Currently Using : No Tobacco Use/Last 12 months : No Exposure to Tobacco Smoke : Other: former- quit 2009 Smoking Status : Former smoker LEORA MALONEY [facility] - 02/18/2013 10:23 CDT Tobacco Use Grid Type : Cigarettes Other Tobacco Frequency : non Last Use : 04/2010 LEORA MALONEY [facility] - 02/18/2013 10:23 CDT Caffeine Use Grid Caffeine Use : None LEORA MALONEY [facility] - 02/18/2013 10:23 CDT Recreational Drug Use Grid Drug Use : None LEORA MALONEY [facility] - 02/18/2013 10:23 CDT Allergy Allergies (Active) NKA Estimated Onset Date: Unspecified ; Created By: DUSTY CLEMONS; Reaction Status: Active ; Category: Drug ; Substance: NKA ; Type: Allergy ; Updated By: DUSTY CLEMONS; Reviewed Date: 02/18/2013 10:23 CDT Source: [facility] CaptimoCHART Document Id: [id number] documented in this encounter Plan of Treatment Upcoming Encounters Date Type Specialty Care Team Description 08/30/2022 Clinical Communication Admitting/Central Scheduling 09/02/2022 Comprehensive Visit Endocrinology Ricardo Winkler APRN, C.N.P., D.N.P. [address] [place] [phone] documented as of this encounter Visit Diagnoses Not on filedocumented in this encounter Additional Health Concerns Assessment Noted Time PHQ-9 Depression Total Score: 13 10/22/2011 3:25 PM CS T documented as of this encounter
--- OUTSIDE RECORDS SUMMARY | 2022-08-16 21:36 | XMS_ITS | Encounter Summary ---
:1985 Author Organization [facility] Address [address] [place] [address] Care Team Providers Name Role Phone Unavailable Primary Care Provider Unavailable Encounter Details Date Type Department Care Team Description 09/16/2008 Hospital Encounter HX NO MAPPING Maurilio Florentino M .D. Social History Tobacco Use Types [...] do you attend yazdanism or Never 2021 yarsani services? Do you [...] Endocrinology Ricardo Winkler, SILVIO, C.N.P., D.N.P. [address] [place] [phone] documented as of this encounter Visit Diagnoses Not on filedocumented in this encounter
--- OUTSIDE RECORDS SUMMARY | 2022-08-16 21:36 | XMS_ITS | Encounter Summary ---
:1985 Author Organization [facility] Address [address] [place] [address] Care Team Providers Name Role Phone Unavailable Primary Care Provider Unavailable Encounter Details Date Type Department Care Team Description 04/18/2010 Hospital Encounter HX [facility] Narinder De [...] do you attend temple or Never 2021 catholic services? Do you [...] encounter Progress Notes Narinder Enriquez M.D. - 04/18/2010 12:00 AM CDT [id number] IMPRESSION/REPORT/PLAN 1. Intrauterine at 7 and 2/7 weeks. Positive cardiac activity on ultrasound. 2. Unknown LMP. EDC is set at 12/03/2010 by 7 and 2/7 week ultrasound. 3. History of depression and bipolar disorder, currently asymptomatic on no medication. 4. History of tobacco abuse. Patient reports quitting smoking 03/30/2010. 5. Nausea and vomiting in . Patient's symptoms are improving with Phenergan. 6. History of polycystic ovarian syndrome. Plan: 1. New OB labs are ordered. The patient will go to lab and have these drawn today. 2. I discussed the patient's EDC as 12/03/2010 set by today's ultrasound. We will use 02/26/2010 at LMP. 3. Return to clinic in 3 weeks for first OB history and physical examination. 4. Routine OB precautions, recommendations and instructions are reviewed with the patient including movement and kick counts. 5. Miscarriage precautions reviewed with the patient. 6. Symptomatic relief measures for nausea and vomiting are discussed with the patient. PROCEDURE A vaginal obstetrical ultrasound is performed revealing a single intrauterine gestation. Gestational sac is seen and located at the fundus. Gestational sac measures 2.53 cm, which is 7 and 5/7 weeks. One embryo is seen. Fritch rump length is measured at 1.10 cm, which is 7 and 2/7 weeks. cardiac activity is seen. heart rate is measured at 138 beats per minute. Yolk sac is seen and appears normal. No adnexal masses are seen. No free fluid is seen. No myometrial masses are seen. This gives an EDC of 12/03/2010 by today's ultrasound. LABS 04/02/2010 LCR for GC and chlamydia negative x2 CHIEF COMPLAINT/REASON FOR VISIT OB visit and OB ultrasound. HISTORY OF PRESENT ILLNESS This patient is a 24-year-old, G5, P2-0-2-2 female with unknown LMP who presents for OB ultrasound to confirm gestational age. The patient had an LMP in December 2009, but she had a negative test on January 13, as well as, on February 12. The patient has been following quantitative HCG's, which have risen appropriately. The patient has nausea and vomiting in mainly in the morning. She has been given a prescription for Phenergan with improvement in her symptoms. She is now tolerating most solids and liquids with rare emesis. Her breast tenderness has resolved. No abdominal pain, cramping, tenderness or discomfort. No vaginal bleeding. No leaking of fluid. No headaches or vision changes. No depression symptoms. No suicidal thoughts. The patient was previously being treated with Citalopram, which she stopped. She reports stopping tobacco on 03/30/2010 with positive test. CURRENT MEDICATIONS Post-visit Medication Reconciliation 1. Generic vitamins 1 p.o. daily 2. Phenergan PRN ALLERGIES No known drug allergies. PAST MEDICAL/SURGICAL HISTORY 1. Depression 2. Bipolar disorder 3. Cervical dysplasia 4. Tobacco abuse 5. Polycystic ovarian syndrome Past Surgical History: Denied Past Obstetrical History: 1. Vaginal delivery 08/16/2008 at 38 weeks, female , 6 pounds. 2. Vaginal delivery 02/10/2002 at 38 weeks, female , 6 pounds. 3. Miscarriage 2004 at 11 weeks 4. Miscarriage 2005 at 13 weeks PREVENTIVE SERVICES Tobacco use: None. Patient quit on 03/30/2010. Pap smear: 12/19/2009 Chlamydia: 04/02/2010 Tetanus: 12/29/2009 Gardasil: Given x3, up to date. Influenza: Declined H1N1: Declined Depression: Asymptomatic per patient. Asthma: Denied SOCIAL HISTORY The patient is single. She was smoking 1/2 pack per day and reports quitting on 03/30/2010 with positive test. She denies alcohol or drug use since becoming . She denies history of STD or PID. She has a history of low grade MICHELLE Pap in 2005 with normal Pap smears for followup. VITAL SIGNS DATE/TIME 04/18/10 WEIGHT 62.2 kg PULSE 60 SYSTOLIC 86 DIASTOLIC 42 PHYSICAL EXAM AREA EXAM TEXT GENERAL Well-developed, well-nourished female in no apparent distress. Alert and oriented x3. ABDOMEN Soft, nontender and nondistended. Positive bowel sounds. No hepatosplenomegaly. No rebound. No guarding. Negative Doptones. GENITALIA Normal external female genitalia. Normal BUS. Normal vaginal rugae without lesions. Normal multiparous cervical os without lesions. Cervix is closed, 4 cm thick. No cervical motion tenderness. Uterus is 8 week size, midposition, mobile and nontender. No adnexal masses or tenderness bilaterally. EXTREMITIES No clubbing, cyanosis or edema. Nontender bilaterally. JTS/mgd Signed Narinder Enriquez M.D. Obstetrics & Gynecology Electronically Signed By:NARINDER ENRIQUEZ MD On 04/19/2010 02:35 PM Source: [facility] MHSDOLBEYNONRADSYS Document Id: [id number] documented in this encounter Miscellaneous Notes Miscellaneous - Narinder Enriquez M.D. - 04/20/2010 8:14 AM CDT Reminder Msg From: NARINDER ENRIQUEZ MD To: KISHAN HOLLINGSWORTH; Sent: 04/20/2010 08:14:21 CDT Show up: 04/20/2010 08:14:00 CDT Subject: Reminder Msg Actions: Notify patient of results Please Remember to: PATIENT: ( ) Call Patient ( ) Ask Patient to ( ) ( ) Call Relative ( ) Schedule Patient ( ) ( ) Call for Patient Registration Rep ( x ) Follow up on Results ( ) Other: PROVIDER: ( ) Call Physician ( ) Call Pharmacist ( ) Call Lab ( ) Other: Special Instructions: Comments: file in ob chart Results: 04/18/2010 11:35 Hgb-[place] 12.0 gm/dL 04/18/2010 11:35 Hct-[place] 36.8 % 04/18/2010 11:35 WBC-[place] 14.7 04/18/2010 11:35 RBC-[place] 3.92 04/18/2010 11:35 MCV-[place] 93.9 fL 04/18/2010 11:35 RDW-[place] 13.4 % 04/18/2010 11:35 Platelet-[place] 379 04/18/2010 11:35 Lymphocytes-[place] 2.83 04/18/2010 11:35 Basophils-[place] 0.03 04/18/2010 11:35 Monocytes-[place] 0.92 04/18/2010 11:35 Eosinophils-[place] 0.37 04/18/2010 11:35 Neutrophils-[place] 10.53 04/18/2010 11:35 TSH, Sensitive-[place] 1.8 MIU/L 04/18/2010 11:35 Syphilis IgG-[place] Negative 04/18/2010 11:35 HIV 1&2 Ab-[place] Negative 04/18/2010 11:35 Rubella IgG-[place] Positive 04/18/2010 11:35 Hep Bs Ag Prntl-[place] Negative 04/18/2010 11:35 Grouping and Rh O POS 04/18/2010 11:35 Antibody Scrn-[place] Negative Source: [facility] POWERCHART Document Id: [id number] Electronically signed by Conversion, [facility] Aviation Project Manager [id number] at 04/28/2017 6:07 AM CDT Miscellaneous - Conversion, Historical Provider Ser - 04/18/2010 10:58 AM CDT 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 Entered On: 04/18/2010 10:59 CDT Performed On: 04/18/2010 10:58 CDT by KISHAN HOLLINGSWORTH LPN Intake Chief Complaint: OB ultrasound Peripheral Pulse Rate: 60bpm Systolic Blood Pressure: 86mmHg (<LLOW) Diastolic Blood Pressure: 42mmHg (<LLOW) NIBP Mean: 57mmHg BP Location: Right upper extremity Actual Weight: 62.200kg(Converted to: 137.128lb) Dosing Weight Clinic: 62.20kg KISHAN HOLLINGSWORTH LPN - 04/18/2010 10:58 CDT Subjective Pain Symptoms: No KISHAN HOLLINGSWORTH LPN - 04/18/2010 10:58 CDT Dependent Habits Tobacco Use/Currently Using: No KISHAN HOLLINGSWORTH LPN - 04/18/2010 10:58 CDT Tobacco Use Grid Type: Cigarettes KISHAN HOLLINGSWORTH LPN - 04/18/2010 10:58 CDT Allergies Allergies (Active) NKA Estimated Onset Date: Unspecified ; Created By: DUSTY CLEMONS; Reaction Status: Active ; Category: Drug ; Substance: NKA ; Type: Allergy ; Updated By: DUSTY CLEMONS; Reviewed Date: 04/18/2010 10:58 CDT Source: [facility] POWERCHART Document Id: [id number] documented in this encounter Plan of Treatment Upcoming Encounters Date Type Specialty Care Team Description 08/30/2022 Clinical Communication Admitting/Central Scheduling 09/02/2022 Comprehensive Visit Endocrinology Ricardo Winkler, SILVIO, C.N.P., D.N.P. [address] [place] [phone] documented as of this encounter Procedures Procedure Name Priority Date/Time Associated Diagnosis Comme nts ABO GROUPING, B Routine 04/18/2010 11:35 AM Resul ts for this CDT procedure are i n the results section. ANTIBODY SCREEN, B Routine 04/18/2010 11:35 AM Re sults for this CDT procedure are i n the results section. documented in this encounter Results Antibody Screen (04/18/2010 11:35 AM CDT) P athologist Signature Antibody Negative POWERCHART Screen Comment: -- REFERENCE VALUE -- Negative If positive, antibody identification will be performed. Specimen (Source) Anatomical Collection Method Collection Time Re ceived Time Location / / Volume Laterality 04/18/2010 11:35 AM CDT Narinder Enriquez M.D. LAB BLOOD BANK TEST ORDERABL ES Performing Organization Address City/State/ZIP Code Phon e Number POWERCHART Grouping and Rh-Garcia FLIP, see #[id number] (04/18/2010 11:35 AM CDT) P athologist Signature HX Grouping and O POS POWERCHART Rh Specimen (Source) Anatomical Collection Method Collection Time Re ceived Time Location / / Volume Laterality 04/18/2010 11:35 AM CDT Narinder Enriquez M.D. LAB BLOOD BANK TEST ORDERABL ES Performing Organization Address City/State/ZIP Code Phon e Number POWERCHART documented in this encounter Visit Diagnoses Not on filedocumented in this encounter
--- OUTSIDE RECORDS SUMMARY | 2022-08-16 21:36 | XMS_ITS | Encounter Summary ---
:1985 Author Organization [facility] Address [address] [place] [address] Care Team Providers Name Role Phone Unavailable Primary Care Provider Unavailable Encounter Details Date Type Department Care Team Description 07/15/2003 Hospital Encounter HX [facility] Mahendra Medley Jr., M.D. [address] [place], [place] [phone] (Wo rk) Social History [...] do you attend moravian or Never 2021 shinto services? Do you [...] Endocrinology Ricardo Winkler, SILVIO, C.N.P., D.N.P. [address] [place] [phone] documented as of this encounter Visit Diagnoses Not on filedocumented in this encounter
--- OUTSIDE RECORDS SUMMARY | 2022-08-16 21:36 | XMS_ITS | Encounter Summary ---
:1985 Author Organization [facility] Address [address] [place] [address] Care Team Providers Name Role Phone Unavailable Primary Care Provider Unavailable Encounter Details Date Type Department Care Team Description 08/09/2010 Hospital Encounter HX [facility] Narinder De [...] do you attend restorationist or Never 2021 quaker services? Do you [...] encounter Progress Notes Narinder Enriquez M.D. - 08/09/2010 12:00 AM CDT [id number] CHIEF COMPLAINT/REASON FOR VISIT OB visit HISTORY OF PRESENT ILLNESS This patient is a 24-year-old, G5, P2-0-0-2 female with unknown LMP. EDC is 12/03/2010 set by a 7 week ultrasound. The patient is now 23 and 3/7 weeks. She presents for routine OB visit. She is doing well. She has no complaints. She reports good movement. No leaking of fluid or vaginal bleeding. No cramping or contractions. No pelvic pressure. No headaches or vision changes. No depression symptoms. She is no longer smoking and quit in March of 2010. CURRENT MEDICATIONS Post-visit Medication Reconciliation Generic vitamins 1 p.o. daily ALLERGIES No known drug allergies. VITAL SIGNS DATE/TIME 08/09/10 WEIGHT 64.0 kg SYSTOLIC 82 DIASTOLIC 40 PHYSICAL EXAM AREA EXAM TEXT GENERAL Well developed, well nourished gravid female in no apparent distress. Alert and oriented times 3. Normal affect. ABDOMEN Gravid, soft and nontender. Positive bowel sounds. Fundal height is 23 cm. Positive heart tones 154. EXTREMITIES No clubbing, cyanosis or edema. Nontender bilaterally. IMPRESSION/REPORT/PLAN 1. Intrauterine at 23 and 3/7 weeks. Positive cardiac activity. 2. Unknown LMP. EDC is 12/03/2010 set by 7 week ultrasound. 3. History of depression and bipolar disorder, currently asymptomatic on no medication. 4. History of tobacco abuse. Patient quit smoking March 2010. 5. History of polycystic ovarian syndrome, currently asymptomatic on no medication. Plan: 1. Influenza immunization given to the patient today. 2. Return to clinic in 4 weeks for OB visit or be seen sooner PRN. 3. Plan to check glucola at next visit. Glucola with instructions are given to the patient. 4. Routine OB precautions, recommendations and instructions are reviewed with the patient including movement and kick counts. JTS/mgd Signed Narinder Enriquez M.D. 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/History Entered On: 08/09/2010 13:44 CDT Performed On: 08/09/2010 13:43 CDT by KISHAN HOLLINGSWORTH LPN Intake Chief Complaint: OB check @ 23 3/7 weeks LMP Date: 02-26-10 Systolic Blood Pressure: 82mmHg (<LLOW) Diastolic Blood Pressure: 40mmHg (<LLOW) NIBP Mean: 54mmHg BP Location: Right upper extremity Heart Rhythm: Regular Actual Weight: 64.000kg(Converted to: 141lb 2oz) Dosing Weight Clinic: 64.00kg KISHAN HOLLINGSWORTH LPN - 08/09/2010 13:43 CDT Subjective Pain Symptoms: No KISHAN HOLLINGSWORTH LPN - 08/09/2010 13:43 CDT Dependent Habits Tobacco Use/Currently Using: No KISHAN HOLLINGSWORTH LPN - 08/09/2010 13:43 CDT Tobacco Use Grid Type: Cigarettes KISHAN HOLLINGSWORTH LPN - 08/09/2010 13:43 CDT Allergies Allergies (Active) NKA Estimated Onset Date: Unspecified ; Created By: DUSTY CLEMONS; Reaction Status: Active ; Category: Drug ; Substance: NKA ; Type: Allergy ; Updated By: DUSTY CLEMONS; Reviewed Date: 08/09/2010 13:43 CDT Source: [facility] POWERCHART Document Id: [id number] CDT!18 documented in this encounter Plan of Treatment Upcoming Encounters Date Type Specialty Care Team Description 08/30/2022 Clinical Communication Admitting/Central Scheduling 09/02/2022 Comprehensive Visit Endocrinology Ricardo Winkler APRN, C.N.P., D.N.P. [address] [place] [phone] documented as of this encounter Visit Diagnoses Not on filedocumented in this encounter
--- OUTSIDE RECORDS SUMMARY | 2022-08-16 21:36 | XMS_ITS | Encounter Summary ---
:1985 Author Organization [facility] Address [address] [place] [address] Care Team Providers Name Role Phone Unavailable Primary Care Provider Unavailable Encounter Details Date Type Department Care Team Description 04/11/2010 Hospital Encounter [facility]X [facility] Karen Dial i, M.D. [address] [place] [address] (Wo rk) Social History Tobacco [...] do you attend yarsanism or Never 2021 restorationism services? Do you [...] encounter Progress Notes Karen Steinberg M.D. - 04/11/2010 12:00 AM CDT [id number] IMPRESSION/REPORT/PLAN 1. Nausea with early . I discussed this with Dr. Enriquez who recommends Phenergan 25 mg every six to 8 hours as needed for nausea. 2. Left shoulder pain. I have written her a work excuse stating no overhead work for two weeks. She may use Tylenol for management of her discomfort. CHIEF COMPLAINT/REASON FOR VISIT 1. Left shoulder pain. 2. Nausea. HISTORY OF PRESENT ILLNESS Keily has had pain in the left shoulder over the past several weeks. It seems to be worse and she attributes it to lifting items above her head at work. She is shorter than most of the other employees and feels she needs to lift objects further above her head than every one else does. She has pain at the shoulder joint and radiating into the upper arm. It is constant. She has normal range of motion, but has discomfort with overhead reaching. Keily is in her first trimester of . She has had nausea and no appetite which has been present fairly constantly throughout the day. CURRENT MEDICATIONS Post-visit Medication Reconciliation vitamins Phenergan 25 mg every 6 to 8 hours as needed for nausea, new medication today. VITAL SIGNS DATE/TIME 04-22-2010 WEIGHT 61.9 kg TEMPERATURE 37.3 degreesC RESP RATE 20 / min PULSE 76 SYSTOLIC 86 DIASTOLIC 58 PHYSICAL EXAM AREA EXAM TEXT GENERAL She does not appear ill or uncomfortable. She has no tenderness to palpation at the left glenohumeral joint. She has some paraspinous tenderness in the upper thoracic region on the left. AUDI/cinthia Signed Karen Reyes M.D. Family Medicine Electronically Signed By:KAREN REYES MD On 04/26/2010 01:13 PM Source: [facility] MHSDOLBEYNONRADSYS Document Id: [id number] documented in this encounter Miscellaneous Notes Miscellaneous - Karen Steinberg M.D. - 04/11/2010 2:27 PM CDT School or Work Excuse School or Work Excuse Entered On: 04/11/2010 14:28 CDT Performed On: 04/11/2010 14:27 CDT by KAREN REYES MD School or Work Excuse Date Patient Seen: 04/11/2010 CDT School or Work Restrictions: Other: no overhead work for 2 weeks Date of Return to School/Work Without Restrictions: 04/24/2010 CDT KAREN REYES MD - 04/11/2010 14:27 CDT Source: 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 Entered On: 04/11/2010 13:27 CDT Performed On: 04/11/2010 13:07 CDT by LIZ GANDHI Intake Chief Complaint: having problems with left shoulder Temperature Core: 37.3DegC(Converted to: 99.1DegF) Peripheral Pulse Rate: 76bpm Respiratory Rate: 20br/min Systolic Blood Pressure: 86mmHg (<LLOW) Diastolic Blood Pressure: 48mmHg (<LLOW) NIBP Mean: 61mmHg BP Location: Right upper extremity Actual Weight: 61.900kg(Converted to: 136.466lb) Dosing Weight Clinic: 61.90kg LIZ GANDHI - 04/11/2010 13:07 CDT Subjective Pain Symptoms: Yes Musculoskeletal Symptoms: Joint stiffness, Joint swelling, Pain, Weakness LIZ GANDHI 04/11/2010 13:07 CDT Pain Pain Assessment Grid Pain 1 Location: Shoulder (Comment: left shoulder radiates from spine across shoulder blade. [LIZ GANDHI 04/11/2010 13:07 CDT] ) Laterality: Left Intensity: 2 Acceptable Intensity: 6 Time Pattern: Constant (Comment: morning and night worse, Bad in am,cries in pain 7 rating in a.m. may be less in evening depending on arm use. [LIZ GANDHI 04/11/2010 13:07 CDT] ) Onset: Sudden Quality: Dull (Comment: constant dull deep muscle pain [OKSANA 04/11/2010 13:07 CDT] ) LIZ GANDHI 04/11/2010 13:07 CDT Effects of Pain Grid Concentration: Moderate (Comment: when in a lot of pain [LIZ GANDHI 04/11/2010 13:07 CDT] ) Daily Life: Moderate Emotions: Moderate Sleep: Severe Work/School: Moderate (Comment: moderate to severe [PAM GANDHI04/11/2010 13:07 CDT] ) LIZ GANDHI 04/11/2010 13:07 CDT Dependent Habits Tobacco Use/Currently Using: No LIZ GANDHI 04/11/2010 13:07 CDT Tobacco Use Grid Type: Cigarettes LIZ GANDHI 04/11/2010 13:07 CDT Alcohol Use: No LIZ GANDHI 04/11/2010 13:07 CDT Allergies Allergies (Active) NKA Estimated Onset Date: Unspecified ; Created By: DUSTY CLEMONS; Reaction Status: Active ; Category: Drug ; Substance: NKA ; Type: Allergy ; Updated By: DUSTY CLEMONS; Reviewed Date: 04/11/2010 13:05 CDT Health History I Cardiovascular Past Medical History Grid Heart Attack: Grandparents Heart Disease: Father, Grandparents Heart Failure: Father LIZ GANDHI 04/11/2010 13:07 CDT Respiratory Past Medical History Grid Frequent Bronchitis: Self, Mother LIZ GANDHI 04/11/2010 13:07 CDT Genitourinary Past Medical Hx Grid Kidney Stones: Father LIZ GANDHI - 04/11/2010 13:07 CDT Health History II Musculoskeletal Past Medical Hx Grid Arthritis: Father Fibromyalgia: Father, shoulders Other: Mother, bursitis in hip LIZ GANDHI - 04/11/2010 13:07 CDT Neurological Past Medical History Grid Migraines: Father Stroke: Grandparents LIZ GANDHI - 04/11/2010 13:07 CDT Psychiatric Past Medical History Grid Anxiety: Self, Mother, Father Depression: Mother, Father, Self Mood Swings/Bipolar: Self LIZ GANDHI - 04/11/2010 13:07 CDT Hematologic Past Medical History Grid Anemia: Self LIZ GANDHI - 04/11/2010 13:07 CDT Oncologic Past Medical History Grid Leukemia: Grandparents Other: Grandparents LIZ GANDHI - 04/11/2010 13:07 CDT Source: [employer] Document Id: [id number] CDT!63 documented in this encounter Plan of Treatment Upcoming Encounters Date Type Specialty Care Team Description 08/30/2022 Clinical Communication Admitting/Central Scheduling 09/02/2022 Comprehensive Visit Endocrinology Peterson, Ricardo Velasquez, SILVIO, C.N.P., D.N.P. [address] [place] [phone] documented as of this encounter Visit Diagnoses Not on filedocumented in this encounter
--- OUTSIDE RECORDS SUMMARY | 2022-08-16 21:36 | XMS_ITS | Encounter Summary ---
:1985 Author Organization [facility] Address [address] [place] [id number] Care Team Providers Name Role Phone Unavailable Primary Care Provider Unavailable Encounter Details Date Type Department Care Team Description 05/09/2010 Hospital Encounter HX [facility] Narinder De [...] do you attend temple or Never 2021 evangelical services? Do you [...] PM CDT documented as of this encounter H&P Notes Narinder Enriquez M.D. - 05/09/2010 12:00 AM CDT [id number] IMPRESSION/REPORT/PLAN 1. Intrauterine at 10 and 2/7 weeks. Positive cardiac activity. 2. EDC is 12/03/2010 set by 7 week ultrasound. 3. History of depression and bipolar disorder, currently asymptomatic on no medication. 4. History of tobacco abuse. Patient reports quitting smoking on 03/30/2010. 5. Nausea and vomiting in . Patient reports symptoms improving with Phenergan. 6. History of polycystic ovarian syndrome. Plan: 1. The patient declines genital examination. She also declines Pap smear. She had a Pap smear in November, which was normal and I feel this is reasonable. I recommend checking the patient's cervix to confirm it is closed and the thickness of the cervix and she declines. 2. Routine OB precautions, recommendations and instructions are reviewed with the patient. 3. [facility]card OB handbook is discussed with the patient. 4. I would like the patient to follow up in 3-4 weeks for OB visit or be seen sooner PRN. 5. Miscarriage precautions reviewed with the patient. 6. Symptomatic relief measures for nausea and vomiting are discussed with the patient. LABS 04/18/2010 blood type O positive, antibody screen negative, hemoglobin 12.0, hematocrit 36.8, platelets 379, VDRL negative, rubella immune, chlamydia negative, hepatitis B surface antigen negative, HIV negative, TSH 1.8, urine culture no growth. 12/19/2009 Pap smear normal. CHIEF COMPLAINT/REASON FOR VISIT First OB history and physical examination. HISTORY OF PRESENT ILLNESS This patient is a 24-year-old, G5, P2-0-2-2 female with unknown LMP. The patient's EDC is 12/03/2010 set by 7 week ultrasound who is now 10 and 2/7 weeks. The patient presents for first OB history and physical examination. She is doing well. She reports nausea and vomiting symptoms are improving with Phenergan. She is tolerating most solids and liquids. She reports rare emesis. Her last emesis was 2 days ago. No abdominal pain, cramping, tenderness or discomfort. No vaginal bleeding. No abnormal vaginal discharge. No vaginal itching or irritation. No headaches or vision changes. No depression symptoms. No suicidal thoughts. No fevers or chills. No chest pain or shortness of breath. The patient reports she stopped tobacco on 03/30/2010 with positive test. She also was being treated with Citalopram, but she stopped and she denies any depression symptoms. CURRENT MEDICATIONS Post-visit Medication Reconciliation 1. Generic vitamins 1 p.o. daily 2. Phenergan PRN ALLERGIES No known drug allergies. SYSTEMS REVIEW As per history of present illness, otherwise negative. PAST MEDICAL/SURGICAL HISTORY 1. Depression 2. Bipolar disorder 3. Cervical dysplasia 4. Tobacco abuse 5. Polycystic ovarian syndrome Past Surgical History: Denied Past Obstetrical History: 1. Vaginal delivery 2007 at 38 weeks gestation, female , 6 pounds. 2. Vaginal delivery 2001 at 38 weeks, female infant, 6 pounds. 3. Miscarriage 2004 at 11 weeks. 4. Miscarriage 2005 at 13 weeks PREVENTIVE SERVICES Tobacco use: None, patient quit 03/30/2010. Pap smear: 12/19/2009 Chlamydia: 04/02/2010 Tetanus: 12/29/2009 Gardasil: Given x3, up to date. Influenza: Declined H1N1: Declined Depression: Denied. PHQ-9 score of 0. Asthma: Denied SOCIAL HISTORY The patient is single. She lives with the father of her child. She was smoking 1/2 pack per day and quit on 03/30/2010. She denies alcohol or drug use. No history of STD or PID. She does have a history of low grade MICHELLE Pap in 2005 with normal followup Pap smears. She denies history of abuse. FAMILY HISTORY The patient denies diabetes or hypertension. No breast cancer, colon cancer or ovarian cancer. VITAL SIGNS DATE/TIME 05/09/10 WEIGHT 61.0 kg PULSE 64 SYSTOLIC 90 DIASTOLIC 54 PHYSICAL EXAM AREA EXAM TEXT GENERAL Well-developed, well-nourished female in no apparent distress. Alert and oriented x 3. Normal affect. Patient appears groomed appropriately. SKIN Normal without evidence of rashes or lesions. HEAD Head within normal limits. ENT Neck is supple and within normal limits. Oropharynx is clear. No cervical adenopathy or tenderness. Trachea is midline. THYROID No thyromegaly or tenderness. BREASTS No masses, tenderness, skin changes, adenopathy or discharge. HEART Regular rate and rhythm without murmur. No rubs or gallops. No JVD. No peripheral vascular disease. LUNGS Clear to auscultation bilaterally with good inspiratory effort. ABDOMEN Soft, nontender, and nondistended. Positive bowel sounds. No enlarged groin nodes palpable. No hepatosplenomegaly. No rebound. No guarding. No evidence of hernias present. Fundal height not palpated. Positive Doptones are auscultated 160 beats per minute. RECTUM Declined GENITALIA Declined SPINE No CVA tenderness bilaterally. EXTREMITIES No clubbing, cyanosis or edema. Nontender bilaterally. GAIT Normal gait. NEURO No gross motor or sensory deficits noted. JTS/mgd Signed Narinder Enriquez M.D. Obstetrics & Gynecology Electronically Signed By:NARINDER ENRIQUEZ MD On 05/10/2010 10:30 am Modified by:NARINDER ENRIQUEZ MD On 05/10/2010 10:30 am Source: [facility] MHSDOLBEYNONRADSYS Document Id: [id number] documented in this encounter Miscellaneous Notes Miscellaneous - Narinder Enriquez M.D. - 05/09/2010 11:36 AM CDT Ambulatory [place] [address] Visit Information Name: KEILY NG Current Date: 05/09/2010 11:36:22 Primary Care Provider: KAREN REYES MD [phone] KEILY NG has been given the following list of medications: Your Medications It is important to take your medications as directed. Use a pill box or chart to help remind you to take your medications. Please let your doctor or nurse know if you have problems taking your medications. Medication/Strength Dose Route Frequency Indications/Special Instructions/Comments promethazine (Phenergan 25 mg oral tablet) 1 tab Oral every 6-8 hours multivitamin, ( Multivitamins) 1 tablet Oral once a day Additional Information: Yes - Current list of reconciled medications is provided and explained to the patient and/or family, guardian/caregiver. Source: [facility] [employer] Document Id: [id number] Electronically signed by Wendi [facility] Lump Machine Operator [id number] at 04/28/2017 2:59 AM CDT Nikhil - Narinder Enriquez M.D. - 05/09/2010 11:35 AM CDT PHQ-9 PHQ-9 Entered On: 05/09/2010 11:36 CDT Performed On: 05/09/2010 11:35 CDT by NARINDER ENRIQUEZ MD PHQ-9 Little interest or pleasure in doing things: Not at all Feeling down, depressed, or hopeless: Not at all Trouble falling or staying asleep, or sleeping too much: Not at all Feeling tired or having little energy: Not at all Poor appetite or overeating: Not at all Feeling bad about yourself or that you are a failure: Not at all Trouble concentrating on things: Not at all Moving or speaking slowly; restless or fidgety: Not at all Thoughts that you would be better off /hurting self: Not at all PHQ-9 Calculated Score: 0 PHQ-9 Date Completed: 05/09/2010 CDT Problems make work, home, or dealing with others: Not difficult at all NARINDER ENRIQUEZ MD - 05/09/2010 11:35 CDT Source: [facility] [employer] Document Id: [id number] CDT!14 Miscellaneous - Jayna Haro, L.P.N. 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/History Entered On: 05/09/2010 11:02 CDT Performed On: 05/09/2010 11:01 CDT by JAYNA HARO LPN Intake Chief Complaint: OB visit at 10 2/7 LMP Date: 02/26/2010 Peripheral Pulse Rate: 64bpm Systolic Blood Pressure: 90mmHg (LOW) Diastolic Blood Pressure: 54mmHg NIBP Mean: 66mmHg BP Location: Left upper extremity Actual Weight: 61.000kg(Converted to: 134.482lb) Dosing Weight Clinic: 61.00kg JAYNA HARO LPN - 05/09/2010 11:01 CDT Subjective Pain Symptoms: No JAYNA HARO LPN - 05/09/2010 11:01 CDT Dependent Habits Tobacco Use/Currently Using: No JAYNA HARO LPN - 05/09/2010 11:01 CDT Tobacco Use Grid Type: Cigarettes JYANA HARO LPN - 05/09/2010 11:01 CDT Allergies Allergies (Active) NKA Estimated Onset Date: Unspecified ; Created By: DUSTY CLEMONS; Reaction Status: Active ; Category: Drug ; Substance: NKA ; Type: Allergy ; Updated By: DUSTY CLEMONS; Reviewed Date: 05/09/2010 11:00 CDT Source: [employer] Document Id: [id number] CDT!18 documented in this encounter Plan of Treatment Upcoming Encounters Date Type Specialty Care Team Description 08/30/2022 Clinical Communication Admitting/Central Scheduling 09/02/2022 Comprehensive Visit Endocrinology Ricardo Winkler, SILVIO, C.N.P., D.N.P. [address] [place] [address] documented as of this encounter Visit Diagnoses Not on filedocumented in this encounter
--- OUTSIDE RECORDS SUMMARY | 2022-08-16 21:36 | XMS_ITS | Encounter Summary ---
:1985 Author Organization [facility] Address [address] [place] [address] Care Team Providers Name Role Phone Unavailable Primary Care Provider Unavailable Encounter Details Date Type Department Care Team Description 09/06/2010 Hospital Encounter HX [facility] Narinder De [...] do you attend christian or Never 2021 yazdanism services? Do you [...] encounter Progress Notes Narinder Enriquez M.D. - 09/06/2010 12:00 AM CDT [id number] CHIEF COMPLAINT/ REASON FOR VISIT Routine OB visit. HISTORY OF PRESENT ILLNESS This patient is a 24-year-old G5, P 2-0-0-2 female with unknown LMP. Her EDC is 12/03/2010 set by 7-week ultrasound. The patient is now 27-3/7 weeks. Patient presents for routine OB visit. She is doing well. She has no complaints. She reports good movement. She denies leaking of fluid, vaginal bleeding. She denies pelvic pressure. No pelvic pain. No cramping or contractions. No depression symptoms. No headaches, vision changes. CURRENT MEDICATIONS Generic vitamins one by mouth daily ALLERGIES No known drug allergies VITAL SIGNS Weight 65.4 kg, blood pressure 84/40. PHYSICAL EXAM GENERAL: Well developed, well nourished gravid female in no apparent distress. Alert and oriented times 3. Normal affect. ABDOMEN: Gravid, soft and nontender. Fundal height 27 cm, positive heart tones 158. EXTREMITIES: No edema or tenderness. IMPRESSION/REPORT/PLAN 1. Intrauterine at 27-3/7 weeks. Positive cardiac activity. 2. Unknown LMP. EDC is 12/03/2010 set by seven week ultrasound. 3. History of depression and bipolar disorder, currently asymptomatic on no medication. 4. Elevated diabetic screen. 5. History of tobacco abuse. Patient quit smoking March 2010. 6. History of polycystic ovarian syndrome currently asymptomatic on no medication. Plan 1. 3 hour GTT is ordered. Instructions given to the patient. I will have the patient go to lab within the next week to check a 3-hour GTT. 2. Return to clinic in 2 weeks for OB visit or be seen sooner p.r.n. 3. Routine OB precautions, recommendations and instructions are reviewed with the patient LABS Diabetic screen 180, hemoglobin 11.9. JTS/mgd Signed Narinder Enriquez M.D. Obstetrics & Gynecology Electronically Signed By:NARINDER ENRIQUEZ MD On 09/10/2010 11:24 AM Source: [facility] MHSDOLBEYNONRADSYS Document Id: [id number] documented in this encounter Procedure Notes Conversion, Historical Provider Ser - 09/06/2010 1:38 PM CDT Glucose 1 Hr OB POC Glucose 1 Hr OB POC Entered On: 09/06/2010 13:38 CDT Performed On: 09/06/2010 13:38 CDT by KISHAN HOLLINGSWORTH LPN Glucose 1 Hr OB POC Glucose 1 Hr OB POC Result: 180.00mg/dL (HI) Site: [facility] KISHAN HOLLINGSWORTH LPN - 09/06/2010 13:38 CDT [facility] Document Id: [id number] CDT!4 Conversion, Historical Provider Ser - 09/06/2010 1:38 PM CDT Hemoglobin POC Hemoglobin POC Entered On: 09/06/2010 13:38 CDT Performed On: 09/06/2010 13:38 CDT by KISHAN HOLLINGSWORTH LPN Hemoglobin POC Hemoglobin POC Result: 11.3mg/dL (LOW) Site: [facility] KISHAN HOLLINGSWORTH LPN - 09/06/2010 13:38 CDT Source: [employer] Document Id: [id number] CDT!4 documented in this encounter Miscellaneous Notes Miscellaneous - Conversion, Historical Provider Ser - 09/06/2010 1:34 PM CDT 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/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/History Entered On: 09/06/2010 13:36 CDT Performed On: 09/06/2010 13:34 CDT by KISHAN HOLLINGSWORTH LPN Intake Chief Complaint: OB check and one hour glucose @ 27 3/7 weeks LMP Date: 04/05/10 Systolic Blood Pressure: 84mmHg (<LLOW) Diastolic Blood Pressure: 40mmHg (<LLOW) NIBP Mean: 55mmHg BP Location: Right upper extremity Heart Rhythm: Regular Actual Weight: 65.400kg(Converted to: 144lb 3oz) Dosing Weight Clinic: 65.40kg KISHAN HOLLINGSWORTH [facility] - 09/06/2010 13:34 CDT Subjective Pain Symptoms: No KISHAN HOLLINGSWORTH HAND MARKER - 09/06/2010 13:34 CDT Dependent Habits Tobacco Use/Currently Using: No KISHAN HOLLINGSWORTH [facility] - 09/06/2010 13:34 CDT Tobacco Use Grid Type: Cigarettes KISHAN HOLLINGSWORTH [facility] - 09/06/2010 13:34 CDT Allergies Allergies (Active) NKA Estimated Onset Date: Unspecified ; Created By: DUSTY CLEMONS; Reaction Status: Active ; Category: Drug ; Substance: NKA ; Type: Allergy ; Updated By: DUSTY CLEMONS; Reviewed Date: 09/06/2010 13:34 CDT Source: [facility] Document Id: [id number] CDT!18 documented in this encounter Plan of Treatment Upcoming Encounters Date Type Specialty Care Team Description 08/30/2022 Clinical Communication Admitting/Central Scheduling 09/02/2022 Comprehensive Visit Endocrinology Ricardo Winkler APRN, C.N.P., D.N.P. [address] [place] [phone] documented as of this encounter Visit Diagnoses Not on filedocumented in this encounter
--- OUTSIDE RECORDS SUMMARY | 2022-08-16 21:36 | XMS_ITS | Encounter Summary ---
:1985 Author Organization [facility] Address [address] [place] [address] Care Team Providers Name Role Phone Unavailable Primary Care Provider Unavailable Encounter Details Date Type Department Care Team Description 06/06/2010 Hospital Encounter HX [facility] Narinder De [...] do you attend yazdanism or Never 2021 latter day services? Do you belong to any clubs [...] encounter Progress Notes Narinder Enriquez M.D. - 06/06/2010 12:00 AM CDT [id number] IMPRESSION/REPORT/PLAN 1. Intrauterine at 14 and 2/7 weeks. Positive cardiac activity. 2. EDC is 12/03/2010 set by 7 week ultrasound. 3. History of depression and bipolar disorder, currently asymptomatic on no medication. 4. History of tobacco abuse. Patient quit smoking March 2010. 5. Nausea and vomiting in , symptoms improving with Phenergan. 6. History of polycystic ovarian syndrome. Plan: 1. Return to clinic in 3 weeks for OB visit or be seen sooner PRN. 2. Plan OB ultrasound for survey at 18-22 weeks. 3. I discussed the risks, benefits, alternatives and indications of genetic testing and quad screen testing with the patient. The patient declines. 4. Routine OB precautions, recommendations and instructions are reviewed with the patient. 5. Symptomatic relief measures for nausea and vomiting in are discussed with the patient. 6. I encourage the patient to continue with tobacco cessation efforts. CHIEF COMPLAINT/REASON FOR VISIT Routine OB visit HISTORY OF PRESENT ILLNESS This patient is a 24-year-old, G5, P2-0-2-2 female with EDC 12/03/2010 set by 7 week ultrasound. The patient is 14 and 2/7 weeks today and presents for routine OB visit. She is doing well. She was treated for a bladder infection a few weeks ago and she has no complaints. She has no difficulty urinating. No dysuria, hematuria or flank pain. She is not feeling the baby move yet. She reports her nausea and vomiting symptoms are improving. She is tolerating solids and liquids with very rare emesis. No pain, cramping, tenderness or discomfort. No headaches or vision changes. No fevers or chills. No vaginal bleeding. No leaking of fluid. No depression symptoms or suicidal thoughts. She denies smoking since March. CURRENT MEDICATIONS Post-visit Medication Reconciliation 1. Generic vitamins 1 p.o. daily 2. Phenergan PRN ALLERGIES No known drug allergies. VITAL SIGNS DATE/TIME 06/06/10 WEIGHT 60.7 kg SYSTOLIC 80 DIASTOLIC 44 PHYSICAL EXAM AREA EXAM TEXT GENERAL Well developed, well nourished gravid female in no apparent distress. Alert and oriented times 3. Normal affect. ABDOMEN Gravid, soft and nontender. Fundal height below umbilicus. Positive Doptones 164. EXTREMITIES No edema or tenderness. JTS/mgd Signed Narinder Enriquez M.D. 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 Intake/History Entered On: 06/06/2010 13:37 CDT Performed On: 06/06/2010 13:36 CDT by KISHAN HOLLINGSWORTH LPN Intake Chief Complaint: OB check @ 14 2/7 weeks LMP Date: 02-26-2010 Systolic Blood Pressure: 80mmHg (<LLOW) Diastolic Blood Pressure: 44mmHg (<LLOW) NIBP Mean: 56mmHg BP Location: Right upper extremity Actual Weight: 60.700kg(Converted to: 133.821lb) Dosing Weight Clinic: 60.70kg KISHAN HOLLINGSWORTH LPN - 06/06/2010 13:36 CDT Subjective Pain Symptoms: No KISHAN HOLLINGSWORTH LPN - 06/06/2010 13:36 CDT Dependent Habits Tobacco Use/Currently Using: No KISHAN HOLLINGSWORTH LPN - 06/06/2010 13:36 CDT Tobacco Use Grid Type: Cigarettes KISHAN HOLLINGSWORTH LPN - 06/06/2010 13:36 CDT Allergies Allergies (Active) NKA Estimated Onset Date: Unspecified ; Created By: DUSTY CLEMONS; Reaction Status: Active ; Category: Drug ; Substance: NKA ; Type: Allergy ; Updated By: DUSTY CLEMONS; Reviewed Date: 06/06/2010 13:35 CDT Source: [facility] POWERCHART Document Id: [id number] CDT!17 documented in this encounter Plan of Treatment Upcoming Encounters Date Type Specialty Care Team Description 08/30/2022 Clinical Communication Admitting/Central Scheduling 09/02/2022 Comprehensive Visit Endocrinology Ricardo Winkler APRN, C.N.P., D.N.P. [address] [place] [phone] documented as of this encounter Visit Diagnoses Not on filedocumented in this encounter
--- OUTSIDE RECORDS SUMMARY | 2022-08-16 21:36 | XMS_ITS | Encounter Summary ---
:1985 Author Organization [facility] Address [address] [place] [address] Care Team Providers Name Role Phone Unavailable Primary Care Provider Unavailable Encounter Details Date Type Department Care Team Description 09/20/2010 Hospital Encounter HX [facility] Narinder De [...] you attend latter day or Never 2021 mosque services? Do you [...] encounter Progress Notes Narinder Enriquez M.D. - 09/20/2010 12:00 AM CDT [id number] CHIEF COMPLAINT/REASON FOR VISIT Routine OB visit HISTORY OF PRESENT ILLNESS This patient is a 24-year-old G5, P2022, female with unknown LMP. Her EDC is 12/03/2010 set by a 7-week ultrasound. The patient is now 29 3/7 weeks. She presents for routine OB visit. She is doing well without complaints. She denies leaking of fluid or vaginal bleeding. She has good movement. No cramping or contractions. No depression. No headaches or vision changes. CURRENT MEDICATIONS Generic vitamins one daily ALLERGIES No known drug allergies VITAL SIGNS WEIGHT: 65.9 kg BLOOD PRESSURE: 88/40. PHYSICAL EXAM GENERAL: Well developed, well nourished gravid female in no apparent distress. Alert and oriented times 3. Normal affect. ABDOMEN: Gravid, soft and nontender. Fundal height 29 cm. Positive heart tones 146. Vertex presentation by Ky's. EXTREMITIES: No edema or tenderness. LAB on 09/06/2010: Diabetic screen 180. Three hour GTT not done. IMPRESSION/REPORT/PLAN 1. Intrauterine at 29 3/7 weeks. Positive cardiac activity. 2. Unknown LMP. EDC is 12/03/2010 set by 7-week ultrasound. 3. Elevated diabetic screen. 4. History of depression and bipolar disorder, currently asymptomatic, on no medication. 5. History of tobacco abuse. Patient quit smoking in Mar, 2010. 6. History of polycystic ovarian syndrome. Currently asymptomatic on medication. PLAN 1. Three hour GTT is ordered. Instructions are given to the patient. I strongly recommend the patient do a three hour GTT. The patient verbalized understanding. 2. If the patient does not want to do a three hour GTT, I recommend the patient start on an ADA diet and check fasting and two hour postprandial blood sugars. 3. Return to clinic in 2 weeks for OB visit or be seen sooner. 4. Routine OB precautions, recommendations and instructions reviewed with the patient including movement and kick counts. JTS/sks Signed Narinder Enriquez M.D. 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 Intake/History Entered On: 09/20/2010 14:02 CDT Performed On: 09/20/2010 14:01 CDT by KISHAN HOLLINGSWORTH LPN Intake Chief Complaint: OB check @ 29 3/7 weeks LMP Date: 02-26-10 Systolic Blood Pressure: 88mmHg (<LLOW) Diastolic Blood Pressure: 40mmHg (<LLOW) NIBP Mean: 56mmHg BP Location: Right upper extremity Actual Weight: 65.900kg(Converted to: 145lb 5oz) Dosing Weight Clinic: 65.90kg KISHAN HOLLINGSWORTH LPN - 09/20/2010 14:01 CDT Subjective Pain Symptoms: No KISHAN HOLLINGSWORTH LPN - 09/20/2010 14:01 CDT Dependent Habits Tobacco Use/Currently Using: No KISHAN HOLLINGSWORTH LPN - 09/20/2010 14:01 CDT Tobacco Use Grid Type: Cigarettes KISHAN HOLLINGSWORTH LPN - 09/20/2010 14:01 CDT Allergies Allergies (Active) NKA Estimated Onset Date: Unspecified ; Created By: DUSTY CLEMONS; Reaction Status: Active ; Category: Drug ; Substance: NKA ; Type: Allergy ; Updated By: DUSTY CLEMONS; Reviewed Date: 09/20/2010 14:00 CDT Source: [facility] POWERCHART Document Id: [id number] CDT!17 documented in this encounter Plan of Treatment Upcoming Encounters Date Type Specialty Care Team Description 08/30/2022 Clinical Communication Admitting/Central Scheduling 09/02/2022 Comprehensive Visit Endocrinology Ricardo Winkler APRN, C.N.P., D.N.P. [address] [place] [phone] documented as of this encounter Visit Diagnoses Not on filedocumented in this encounter
--- OUTSIDE RECORDS SUMMARY | 2022-08-16 21:36 | XMS_ITS | Encounter Summary ---
:1985 Author Organization [facility] Address [address] [place] [address] Care Team Providers Name Role Phone Unavailable Primary Care Provider Unavailable Encounter Details Date Type Department Care Team Description 06/27/2010 Hospital Encounter HX [facility] Narinder De [...] do you attend muslim or Never 2021 protestant services? Do you [...] encounter Progress Notes Narinder Enriquez M.D. - 06/27/2010 12:00 AM CDT [id number] IMPRESSION/REPORT/PLAN 1. Intrauterine at 17 and 2/7 weeks. Positive cardiac activity. 2. EDC is 12/03/2010 set by 7 week ultrasound. 3. History of depression and bipolar disorder. Currently asymptomatic on no medication. 4. Nausea and vomiting in resolved. 5. History of tobacco abuse. Patient quit smoking March 2010. 6. History of polycystic ovarian syndrome, currently asymptomatic. Plan: 1. Return to clinic in 3 weeks for OB visit and OB ultrasound for survey or be seen sooner PRN. 2. Urine culture is obtained today for test of cure. The patient was treated for a urinary tract infection last month. She denies any urinary symptoms. 3. Routine OB precautions, recommendations and instructions are reviewed with the patient including movement and kick counts. 4. I encourage the patient to continue with smoking cessation efforts. CHIEF COMPLAINT/REASON FOR VISIT Routine OB visit HISTORY OF PRESENT ILLNESS This patient is a 24-year-old, G5, P2-0-2-2 female with EDC 12/03/2010 set by 7 week ultrasound. The patient is now 17 and 2/7 weeks. She presents for routine OB visit. She is doing well. She took antibiotics for a bladder infection last month and we are going to repeat a urine culture today. No difficulty urinating. No dysuria, hematuria or flank pain. No fevers or chills. She reports good movement. She reports resolution of nausea and vomiting. She is tolerating diet well. No headaches or vision changes. No shortness of breath. No depression symptoms. No leaking of fluid or vaginal bleeding. No cramping, contractions or pain. No depression or suicidal thoughts. She denies smoking since March. CURRENT MEDICATIONS Post-visit Medication Reconciliation Generic vitamins 1 p.o. daily ALLERGIES No known drug allergies. VITAL SIGNS DATE/TIME 06/27/10 WEIGHT 60.3 kg SYSTOLIC 90 DIASTOLIC 44 PHYSICAL EXAM AREA EXAM TEXT GENERAL Well developed, well nourished gravid female in no apparent distress. Alert and oriented times 3. Normal affect. ABDOMEN Gravid, soft and nontender. Fundal height below umbilicus. Positive Doptones 158. SPINE No CVA tenderness bilaterally. EXTREMITIES No edema or tenderness. JTS/mgd Signed Narinder Enriquez M.D. Obstetrics & Gynecology Electronically Signed By:NARINDER ENRIQUEZ MD On 06/28/2010 11:41 AM Source: [facility] MHSDOLBEYNONRADSYS Document Id: [id number] documented in this encounter Miscellaneous Notes Miscellaneous - Conversion, Historical Provider Ser - 06/27/2010 10:28 AM CDT Adult Software Applications Architect Intake/History Adult Software Applications Architect Intake/History Entered On: 06/27/2010 10:30 CDT Performed On: 06/27/2010 10:28 CDT by KISHAN HOLLINGSWORTH LPN Intake Chief Complaint: OB check @ 17 2/7 weeks-no problems LMP Date: 02-26-10 Systolic Blood Pressure: 90mmHg (LOW) Diastolic Blood Pressure: 44mmHg (<LLOW) NIBP Mean: 59mmHg BP Location: Right upper extremity Actual Weight: 60.300kg(Converted to: 132.939lb) Dosing Weight Clinic: 60.30kg KISHAN HOLLINGSWORTH LPN - 06/27/2010 10:28 CDT Subjective Pain Symptoms: No KISHAN HOLLINGSWORTH LPN - 06/27/2010 10:28 CDT Dependent Habits Tobacco Use/Currently Using: No KISHAN HOLLINGSWORTH LPN - 06/27/2010 10:28 CDT Tobacco Use Grid Type: Cigarettes KISHAN HOLLINGSWORTH LPN - 06/27/2010 10:28 CDT Allergies Allergies (Active) NKA Estimated Onset Date: Unspecified ; Created By: DUSTY CLEMONS; Reaction Status: Active ; Category: Drug ; Substance: NKA ; Type: Allergy ; Updated By: DUSTY CLEMONS; Reviewed Date: 06/27/2010 10:27 CDT Source: [facility] [employer] Document Id: [id number] CDT!17 documented in this encounter Plan of Treatment Upcoming Encounters Date Type Specialty Care Team Description 08/30/2022 Clinical Communication Admitting/Central Scheduling 09/02/2022 Comprehensive Visit Endocrinology Ricardo Winkler APRN, C.N.P., D.N.P. [address] [place] [phone] documented as of this encounter Visit Diagnoses Not on filedocumented in this encounter
--- OUTSIDE RECORDS SUMMARY | 2022-08-16 21:36 | XMS_ITS | Encounter Summary ---
:1985 Author Organization [facility] Address [address] [place] [address] Care Team Providers Name Role Phone Unavailable Primary Care Provider Unavailable Encounter Details Date Type Department Care Team Description 12/28/2009 Hospital Encounter HX NO MAPPING Yarelis Reyes M.D. [address] [place], [place] [phone] (Wo rk) Social History [...] Ricardo Winkler, SILVIO, C.N.P., D.N.P. [address] [place] [phone] documented as of this encounter Procedures Procedure Name Priority Date/Time Associated Comments Diagnosis US PELVIS TRANSVAGINAL Routine 12/28/2009 2:10 PM Results for this AND TRANSABDOMINAL NON PROFIT DIRECTOR procedure are in the results section. documented in this encounter Results US Pelvis Transvaginal and Transabdominal (12/28/2009 2:10 PM NON PROFIT DIRECTOR) Anatomical Region Laterality Modality Pelvis N/A Ultrasound Specimen (Source) Anatomical Collection Method Collection Time Re ceived Time Location / / Volume Laterality 12/28/2009 2:10 PM NON PROFIT DIRECTOR Addenda Addendum by ProviderNatalia M.D. o n 12/28/2009 2:10 PM NON PROFIT DIRECTOR RAD^^^OW US Pelvic And Endovaginal 12/28/2009 14:10:00 Addendum by Natalia Rendon M.D. o n 12/28/2009 3:00 PM NON PROFIT DIRECTOR RAD^^^OW US Pelvic And Endovaginal 12/28/2009 15:00:00 Addendum by Natalia Rendon M.D. o n 12/28/2009 3:00 PM NON PROFIT DIRECTOR RAD^^^MA US Pelvic And Endovaginal 12/28/2009 15:00:00 Addendum by Natalia Rendon M.D. o n 12/28/2009 2:10 PM NON PROFIT DIRECTOR RAD^^^MA US Pelvic And Endovaginal 12/28/2009 14:10:00 Addendum by Natalia Rendon M.D. o n 12/28/2009 2:10 PM NON PROFIT DIRECTOR RAD^^^MA US Pelvic And Endovaginal 12/28/2009 14:10:00 Impressions 12/28/2009 3:41 PM NON PROFIT DIRECTOR Sonographic findings are suggestive but not confirmatory of PCOS. See above. Narrative 12/28/2009 3:41 PM NON PROFIT DIRECTOR HISTORY: Amenorrhea, pelvic pain, abnorm al cycles. ?? Technique: Transabdominal and transvagin al grayscale and Doppler pelvic imaging was performed. ?? COMPARISON: None. ?? FINDINGS: The retroflexed uterus measure s approximately 8.2 x 3.6 x 5.1 cm and the myometrium is normal in a ppearance. The endometrial stripe has a normal homogeneous appearan ce and normal width of 8 mm. The appearance of the urinary bladder is normal. ?? A trace amount of free fluid may be pres ent within the pelvic cul-de-sac, likely physiologic. Both ova trena are upper normal in size and contain normal Doppler flow. Abundan t, peripherally-oriented tiny subcentimeter bilateral ovarian follicle s are observed which are suggestive but not confirmatory of PCOS (correlate clinically and serologically). ?? Procedure Note Jean Carlos Morin M.D. / Provider, Javan miller M.D. - 04/17/2017 HISTORY: Amenorrhea, pelvic pain, abnorm al cycles. Technique: Transabdominal and transvagin al grayscale and Doppler pelvic imaging was performed. COMPARISON: None. FINDINGS: The retroflexed uterus measure s approximately 8.2 x 3.6 x 5.1 cm and the myometrium is normal in a ppearance. The endometrial stripe has a normal homogeneous appearan ce and normal width of 8 mm. The appearance of the urinary bladder is normal. A trace amount of free fluid may be pres ent within the pelvic cul-de-sac, likely physiologic. Both ova trena are upper normal in size and contain normal Doppler flow. Abundan t, peripherally-oriented tiny subcentimeter bilateral ovarian follicle s are observed which are suggestive but not confirmatory of PCOS (correlate clinically and serologically). IMPRESSION: Sonographic findings are sug gestive but not confirmatory of PCOS. See above. Fabian Vincent Jr., RKasia.M.S. IMG US PROCEDURES documented in this encounter Visit Diagnoses Not on filedocumented in this encounter
--- OUTSIDE RECORDS SUMMARY | 2022-08-16 21:36 | XMS_ITS | Encounter Summary ---
:1985 Author Organization [facility] Address [address] [place] [address] Care Team Providers Name Role Phone Unavailable Primary Care Provider Unavailable Encounter Details Date Type Department Care Team Description 04/06/2010 Hospital Encounter HX [facility] Narinder Enriquez M.D . Social [...] do you attend yarsanism or Never 2021 judaism services? Do you belong to any clubs [...] Notes Miscellaneous - Narinder Enriquez M.D. - 04/06/2010 12:32 PM CDT Reminder Msg From: NARINEDR ENRIQUEZ MD To: KISHAN HOLLINGSWORTH; Sent: 04/06/2010 12:32:56 CDT Show up: 04/06/2010 12:32:00 CDT Subject: Reminder Msg Actions: Notify patient of results Please Remember to: PATIENT: ( ) Call Patient ( ) Ask Patient to ( ) ( ) Call Relative ( ) Schedule Patient ( ) ( ) Call for Profiler ( x) Follow up on Results ( ) Other: PROVIDER: ( ) Call Physician ( ) Call Pharmacist ( ) Call Lab ( ) Other: Special Instructions: Comments: Quantitiative HCG was ordered, not qualitiative. Patient needs to come in to the lab for Quantitative HCG. Please see if Lab can run correct test off of blood already drawn. Results: 04/06/2010 11:04 Beta hCG Ql Positive Source: [facility] POWERCHART Document Id: [id number] Electronically signed by Conversion, [facility] Automotive Worker [id number] at 04/28/2017 6:07 AM CDT documented in this encounter Plan of Treatment Upcoming Encounters Date Type Specialty Care Team Description 08/30/2022 Clinical Communication Admitting/Central Scheduling 09/02/2022 Comprehensive Visit Endocrinology Ricardo Winkler APRN, C.N.P., D.N.P. [address] [place] [phone] documented as of this encounter Visit Diagnoses Not on filedocumented in this encounter
--- OUTSIDE RECORDS SUMMARY | 2022-08-16 21:36 | XMS_ITS | Encounter Summary ---
:1985 Author Organization [facility] Address [address] [place] [address] Care Team Providers Name Role Phone Unavailable Primary Care Provider Unavailable Encounter Details Date Type Department Care Team Description 07/16/2008 - Hospital Encounter HX [facility] UNIT 3-2 07/17/2008 OBSTETRICS Social History Tobacco Use Types Packs/Day Years [...] do you attend denominational or Never 2021 mormonism services? Do you [...] Ricardo Winkler, SILVIO, C.N.P., D.N.P. [address] [place] [phone] documented as of this encounter Visit Diagnoses Not on filedocumented in this encounter
--- OUTSIDE RECORDS SUMMARY | 2022-08-16 21:36 | XMS_ITS | Encounter Summary ---
:1985 Author Organization [facility] Address [address] [place] [address] Care Team Providers Name Role Phone Unavailable Primary Care Provider Unavailable Encounter Details Date Type Department Care Team Description 09/12/2010 Hospital Encounter HX [facility] Jhonny Enriquez M.D . [...] do you attend judaism or Never 2021 latter day services? Do [...] Endocrinology Ricardo Winkler, SILVIO, C.N.P., D.N.P. [address] [place] [phone] documented as of this encounter Visit Diagnoses Not on filedocumented in this encounter
--- OUTSIDE RECORDS SUMMARY | 2022-08-16 21:36 | XMS_ITS | Encounter Summary ---
:1985 Author Organization [facility] Address [address] [place] [address] Care Team Providers Name Role Phone Unavailable Primary Care Provider Unavailable Encounter Details Date Type Department Care Team Description 07/16/2008 Hospital Encounter HX NO MAPPING Social History Tobacco Use Types Packs/Day Years [...] do you attend latter-day or Never 2021 alevism services? Do you [...] Ricardo Winkler APRN, C.N.P., D.N.P. [address] [place] [phone] documented as of this encounter Visit Diagnoses Not on filedocumented in this encounter
--- OUTSIDE RECORDS SUMMARY | 2022-08-16 21:36 | XMS_ITS | Encounter Summary ---
:1985 Author Organization [facility] Address [address] [place] [address] Care Team Providers Name Role Phone Unavailable Primary Care Provider Unavailable Encounter Details Date Type Department Care Team Description 03/30/2010 Hospital Encounter HX [facility] FAMILY[facility] Karen Dial i, M.D. [address] [place] [address] (Wo rk) Social History Tobacco [...] do you attend rastafarian or Never 2021 church services? Do you [...] encounter Progress Notes Karen Steinberg M.D. - 03/30/2010 12:00 AM CDT [id number] IMPRESSION/REPORT/PLAN 1. . Uncertain dates. She will follow up with Dr. Enriquez at their earliest convenience. CHIEF COMPLAINT/REASON FOR VISIT Confirm HISTORY OF PRESENT ILLNESS Keily does not recall when her last period began. It has been several weeks. She has begun to have breast tenderness and has taken a test at home which was positive. CURRENT MEDICATIONS Post-visit Medication Reconciliation None VITAL SIGNS DATE/TIME 03-30-10 HEIGHT 152 cm WEIGHT 63.5 kg PULSE 76 SYSTOLIC 90 DIASTOLIC 50 PHYSICAL EXAM AREA EXAM TEXT GENERAL She appears well and in no distress. Urine test is positive. JLF/clf Signed Karen Reyes M.D. Family Medicine Electronically Signed By:KAREN REYES MD On 04/11/2010 08:37 AM Source: [facility] MHSDOLBEYNONRADSYS Document Id: [id number] documented in this encounter Miscellaneous Notes Miscellaneous - Conversion, Historical Provider Ser - 03/30/2010 3:46 PM CDT Adult Salt Operator Intake/History Adult Salt Operator Intake/History Entered On: 03/30/2010 15:48 CDT Performed On: 03/30/2010 15:46 CDT by LEORA MALONEY LPN Intake Chief Complaint: positive home test Peripheral Pulse Rate: 76bpm Systolic Blood Pressure: 90mmHg (LOW) Diastolic Blood Pressure: 50mmHg (LOW) NIBP Mean: 63mmHg BP Location: Right upper extremity Height: 152.00cm(Converted to: 5ft 0in, 4.99ft, 59.84in) Clinic BSA: 1.64 Actual Weight: 63.500kg(Converted to: 139.994lb) Body Mass Index: 27kg/m2 Dosing Weight Clinic: 63.50kg LEORA MALONEY [facility] 03/30/2010 15:46 CDT Subjective Pain Symptoms: No LEORA MALONEY [facility] 03/30/2010 15:46 CDT Dependent Habits Tobacco Use/Currently Using: Yes LEORA MALONEY [facility] 03/30/2010 15:46 CDT Tobacco Use Grid Type: Cigarettes Comments (Comment: 1-2 a day [LEORA MALONEY [facility] - 03/30/2010 15:46 CDT] ) LEORA MALONEY [facility] 03/30/2010 15:46 CDT Alcohol Use: No LEORA MALONEY [facility] 03/30/2010 15:46 CDT Allergies Allergies (Active) NKA Estimated Onset Date: Unspecified ; Created By: DUSTY CLEMONS; Reaction Status: Active ; Category: Drug ; Substance: NKA ; Type: Allergy ; Updated By: DUSTY CLEMONS; Reviewed Date: 03/13/2010 13:21 CDT Source: [facility] [employer] Document Id: [id number] CDT!21 documented in this encounter Plan of Treatment Upcoming Encounters Date Type Specialty Care Team Description 08/30/2022 Clinical Communication Admitting/Central Scheduling 09/02/2022 Comprehensive Visit Endocrinology Ricardo Winkler APRN, C.N.P., D.N.P. [address] [place] [phone] documented as of this encounter Visit Diagnoses Not on filedocumented in this encounter
--- OUTSIDE RECORDS SUMMARY | 2022-08-16 21:36 | XMS_ITS | Encounter Summary ---
:1985 Author Organization [facility] Address [address] [place] [address] Care Team Providers Name Role Phone Unavailable Primary Care Provider Unavailable Encounter Details Date Type Department Care Team Description 05/24/2010 Hospital Encounter HX [facility] Joshua Duong CNM Social History Tobacco Use Types Packs/Day Years [...] or relatives? How often do you attend yazidism or Never 2021 yarsanism services? Do you belong to any clubs or No 01/25/2022 organizations such as yazidism groups, unions, fraternal or athletic groups, or [...] documented as of this encounter Progress Notes Joshua Molina CNM - 05/24/2010 12:00 AM CDT [id number] IMPRESSION/REPORT/PLAN IUP at 12 weeks with urinary tract infection. Plan: Bactrim DS 1 b.i.d. for 7 days was sent to [facility] in [place]. She is going to continue to push fluids and she will keep her appointment already scheduled with Dr. Enriquez for the middle of the month. LABS Urine did show some protein, leukocytes and trace of lysed. CHIEF COMPLAINT/REASON FOR VISIT She was seen today for an acute OB visit. HISTORY OF PRESENT ILLNESS She is a 24-year-old, 5, para 2 with an EDC of 12/03/2009. She has been complaining of having some increased pelvic pressure with occasional dysuria. She states it is worse in the morning when she first gets up. She denies having any bleeding. No unusual pain and no history of any increased vaginal discharge or itching. She does have a history of having urinary tract infections when she was with her last baby and is concerned because she may be starting one now. PHYSICAL EXAM AREA EXAM TEXT GENERAL See assessment form. I did offer to do a pelvic exam just to make sure that it wasn't a vaginal infection. She declined. I did hear heart tones easily with the Doppler. PEB/mgd Signed Maria M Molina C.N.M. Obstetrical/Gynecological Services Electronically Signed By:JOSHUA MOLINA CNM On 05/25/2010 09:47 AM Source: [facility] MHSDOLBEYNONRADSYS Document Id: [id number] documented in this encounter Procedure Notes Conversion, Historical Provider Ser - 05/24/2010 1:33 PM CDT Urine Dipstick Urine Dipstick Entered On: 05/24/2010 13:36 CDT Performed On: 05/24/2010 13:33 CDT by ESPERANZA MARAVILLA LPN Urine Dipstick UA Color POC: Yellow UA Appear POC: Clear UA Leuk POC: 1+ Small UA Nitrite POC: Negative UA Urobilinogen POC: 0.2 mg/dl UA Protein POC: 1+ (30 mg/dl) UA pH POC: 7 UA Blood POC: Trace Intact UA Spec Grav POC: 1.02 UA Ketones POC: Negative UA Bili POC: Negative UA Glucose POC: Negative ESPERANZA MARAVILLA LPN - 05/24/2010 13:33 CDT Source: [facility] [employer] Document Id: [id number] CDT!14 documented in this encounter Miscellaneous Notes Miscellaneous - Joshua Molina CNM - 05/24/2010 1:42 PM CDT Ambulatory [place] [address] Visit Information Name: SAMUEL NG Current Date: 05/24/2010 13:42:16 Primary Care Provider: KAREN REYES MD [id number] SAMUEL NG has been given the following list of medications: Your Medications It is important to take your medications as directed. Use a pill box or chart to help remind you to take your medications. Please let your doctor or nurse know if you have problems taking your medications. Medication/Strength Dose Route Frequency Indications/Special Instructions/Comments sulfamethoxazole-trimethoprim (Bactrim DS oral tablet) 1 tab(s) Oral two times a day promethazine (Phenergan 25 mg oral tablet) 1 tab Oral every 6-8 hours multivitamin, ( Multivitamins) 1 tablet Oral once a day Additional Information: Yes - Current list of reconciled medications is provided and explained to the patient and/or family, guardian/caregiver. Source: [facility] [employer] Document Id: [id number] Miscellaneous - Conversion, Historical Provider Ser - 05/24/2010 1:24 PM CDT Adult Loan Documentation Specialist Intake/History Adult Loan Documentation Specialist Intake/History Entered On: 05/24/2010 13:27 CDT Performed On: 05/24/2010 13:24 CDT by ESPERANZA MARAVILLA LPN Intake Chief Complaint: pelvic pressure Ambulatory Intake Additional Information: medications reviewed Systolic Blood Pressure: 82mmHg (<LLOW) Diastolic Blood Pressure: 50mmHg (LOW) NIBP Mean: 61mmHg BP Location: Right upper extremity Actual Weight: 60.500kg(Converted to: 133.380lb) Dosing Weight Clinic: 60.50kg ESPERANZA MARAVILLA LPN - 05/24/2010 13:24 CDT Subjective Pain Symptoms: No ESPERANZA MARAVILLA LPN - 05/24/2010 13:24 CDT Dependent Habits Tobacco Use/Currently Using: No ESPERANZA MARAVILLA LPN - 05/24/2010 13:24 CDT Tobacco Use Grid Type: Cigarettes ESPERANZA MARAVILLA LPN - 05/24/2010 13:24 CDT Allergies Allergies (Active) NKA Estimated Onset Date: Unspecified ; Created By: DUSTY CLEMONS; Reaction Status: Active ; Category: Drug ; Substance: NKA ; Type: Allergy ; Updated By: DUSTY CLEMONS; Reviewed Date: 05/24/2010 13:23 CDT Source: [facility] [employer] Document Id: [id number] CDT!17 documented in this encounter Plan of Treatment Upcoming Encounters Date Type Specialty Care Team Description 08/30/2022 Clinical Communication Admitting/Central Scheduling 09/02/2022 Comprehensive Visit Endocrinology Ricardo Winkler, SILVIO, C.N.P., D.N.P. [address] [place] [address] documented as of this encounter Visit Diagnoses Not on filedocumented in this encounter
--- OUTSIDE RECORDS SUMMARY | 2022-08-16 21:36 | XMS_ITS | Encounter Summary ---
:1985 Author Organization [facility] Address [address] [place] [address] Care Team Providers Name Role Phone Unavailable Primary Care Provider Unavailable Encounter Details Date Type Department Care Team Description 04/02/2010 Hospital Encounter HX [facility] Narinder De [...] do you attend baptist or Never 2021 islam services? Do you [...] encounter Progress Notes Narinder Enriquez M.D. - 04/02/2010 12:00 AM CDT [id number] IMPRESSION/REPORT/PLAN 1. at 5 and 0/7 weeks. No cardiac activity on ultrasound. 2. History of depression, currently asymptomatic on no medication. 3. History of tobacco. Patient quit smoking 03/30/2010. Plan: 1. Urine LCR for GC and chlamydia obtained today. 2. I recommend checking quantitative HCG and repeating in 48 hours. After confirming appropriate rise in HCG I recommend repeating a vaginal ultrasound to assess for embryo and cardiac activity. The patient agrees with this course of action. 3. Routine OB precautions, recommendations and instructions are reviewed with the patient. 4. Miscarriage precautions reviewed with the patient. 5. Prescription for vitamins given to the patient. Generic vitamins are sent to [facility]. 6. The patient will follow up in 10-14 days for repeat visit and OB ultrasound, as mentioned above. 7. New OB labs are ordered. We will draw these at the next visit. LABS 03/30/2010 test positive. 04/02/2010 LCR for GC and chlamydia pending. Quantitative HCG pending. PROCEDURE A performed a vaginal obstetrical ultrasound showing a gestational sac located at the fundus. Gestational sac measures 0.52 cm, which is 5 and 0/7 weeks. Yolk sac is not seen. Embryo is not seen. Cardiac activity is not seen. Left and right ovaries are seen and appear normal. Right ovary measures 2.7 x 2.1 x 1.8 cm and has multiple small follicles. Left ovary measures 3.0 x 2.0 cm and has multiple small follicles. No free fluid is seen. Uterus measures 6.7 x 4.1 x 4.8 cm. CHIEF COMPLAINT/REASON FOR VISIT HISTORY OF PRESENT ILLNESS This patient is a 24-year-old, G5, P2-0-2-2 female with LMP 01/03/2010 who presents for confirmation. The patient had a negative test on January 13, 2010. She also had a negative test on February 12, 2010. The patient had 2 home positive tests last week and a positive test in the clinic on 03/30/2010. The patient presents because she believes that she is 12 weeks and presents for OB visit. The patient requests an ultrasound to confirm that she is 12 weeks . The patient has some mild morning nausea, but denies emesis. She also has some breast tenderness. No abdominal amor, cramping, tenderness or discomfort. No vaginal bleeding. No leaking of fluid. No headaches or vision changes. No fevers or chills. No depression symptoms. The patient denies suicidal thoughts. The patient was being treated with Citalopram, which she stopped. She denies any current depression symptoms. CURRENT MEDICATIONS Post-visit Medication Reconciliation vitamins, new prescription given today. ALLERGIES No known drug allergies. PAST MEDICAL/SURGICAL HISTORY 1. Depression 2. Bipolar disorder 3. Cervical dysplasia 4. Tobacco abuse 5. Polycystic ovarian syndrome Past Surgical History: None per patient Past Obstetrical History: 1. Vaginal delivery 08/16/2008, female infant 6 pounds at 38 weeks complicated by labor. 2. Vaginal delivery 02/10/2002, 38 weeks, female infant, 6 pounds, uncomplicated per patient other than age 16. 3. Miscarriage 2004 at 11 weeks gestation. 4. Miscarriage 2005 at 13 weeks gestation. PREVENTIVE SERVICES Tobacco use: Yes, 1/2 pack per day. The patient reports quitting on 03/30/2010. Pap smear: 12/19/2009 Chlamydia: 04/02/2010 Tetanus: 12/29/2009 Gardasil: Given x3, up to date. Influenza: Declined H1N1: Declined Depression: Asymptomatic per patient Asthma: Denied SOCIAL HISTORY The patient is single. She reports a history of 1/2 pack tobacco abuse. She reports quitting on 03/30/2010 when she had a positive test. She denies alcohol use or drug use since becoming . She denies history of STD or PID. She does have a history of cervical dysplasia in 2005 with a low grade MICHELLE Pap. She reports normal Pap smears since that time. VITAL SIGNS DATE/TIME 04/02/10 WEIGHT 63.1 kg SYSTOLIC 108 DIASTOLIC 48 PHYSICAL EXAM AREA EXAM TEXT GENERAL Well-developed, well-nourished female in no apparent distress. Alert and oriented x3. ABDOMEN Soft, nontender and nondistended. Positive bowel sounds. No hepatosplenomegaly. No rebound. No guarding. Negative Doptones. RECTUM Declined by patient. GENITALIA Normal external female genitalia. Normal BUS. Normal vaginal rugae without lesions. Normal multiparous cervical os. Cervix is closed, 4 cm thick. No cervical motion tenderness. Uterus is normal size, anteflexed, mobile and nontender. No adnexal masses or tenderness bilaterally. EXTREMITIES No clubbing, cyanosis or edema. Nontender bilaterally. JTS/mgd Signed Narinder Enriquez M.D. Obstetrics & Gynecology Electronically Signed By:NARINDER ENRIQUEZ MD On 04/04/2010 08:41 AM Source: [facility] MHSDOLBEYNONRADSYS Document Id: [id number] documented in this encounter Miscellaneous Notes Miscellaneous - Narinder Enriquez M.D. - 04/05/2010 7:19 AM CDT Reminder Msg From: NARINDER ENRIQUEZ MD To: DUSTY CLEMONS; Sent: 04/05/2010 07:19:23 CDT Show up: 04/05/2010 07:19:00 CDT Subject: Reminder Msg Actions: Notify patient of results Please Remember to: PATIENT: ( ) Call Patient ( ) Ask Patient to ( ) ( ) Call Relative ( ) Schedule Patient ( ) ( ) Call for Ase Certified Technician (x ) Follow up on Results ( ) Other: PROVIDER: ( ) Call Physician ( ) Call Pharmacist ( ) Call Lab ( ) Other: Special Instructions: Comments: Negative. Results: 04/02/2010 15:31 N gonor Amp [facility] Negative 04/02/2010 15:31 N gonor Amp Src[facility] urine 04/02/2010 15:31 C trach Amp [facility] Negative 04/02/2010 15:31 C trach Amp [facility] urine Source: [facility] [employer] Document Id: [id number] Electronically signed by [facility] [employer]ener [id number] at 04/28/2017 6:07 AM CDT Miscellaneous - Narinder Enriquez M.D. - 04/02/2010 5:34 PM CDT [place] [address] Visit Information Name: NGSAMUELN Current Date: 04/02/2010 17:34:38 Primary Care Provider: SAMUEL NG has been given the following [...] to the patient and/or family, guardian/caregiver. 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 Intake/History Entered On: 04/02/2010 16:16 CDT Performed On: 04/02/2010 16:15 CDT by KISHAN HOLLINGSWORTH LPN Intake Chief Complaint: test Systolic Blood Pressure: 108mmHg Diastolic Blood Pressure: 48mmHg (<LLOW) NIBP Mean: 68mmHg BP Location: Left upper extremity Actual Weight: 63.100kg(Converted to: 139.112lb) Dosing Weight Clinic: 63.10kg KISHAN HOLLINGSWORTH LPN - 04/02/2010 16:15 CDT Subjective Pain Symptoms: No KISHAN HOLLINGSWORTH LPN - 04/02/2010 16:15 CDT Dependent Habits Tobacco Use/Currently Using: No KISHAN HOLLINGSWORTH LPN - 04/02/2010 16:15 CDT Tobacco Use Grid Type: Cigarettes KISHAN HOLLINGSWORTH LPN - 04/02/2010 16:15 CDT Allergies Allergies (Active) NKA Estimated Onset Date: Unspecified ; Created By: DUSTY CLEMONS; Reaction Status: Active ; Category: Drug ; Substance: NKA ; Type: Allergy ; Updated By: DUSTY CLEMONS; Reviewed Date: 03/13/2010 13:21 CDT Source: [facility] [employer]CHART Document Id: [id number] CDT!16 documented in this encounter Plan of Treatment Upcoming Encounters Date Type Specialty Care Team Description 08/30/2022 Clinical Communication Admitting/Central Scheduling 09/02/2022 Comprehensive Visit Endocrinology Ricardo Winkler, SILVIO, C.N.P., D.N.P. [address] [place] [address] documented as of this encounter Visit Diagnoses Not on filedocumented in this encounter
--- OUTSIDE RECORDS SUMMARY | 2022-08-16 21:36 | XMS_ITS | Encounter Summary ---
:1985 Author Organization [facility] Address [address] [place] [address] Care Team Providers Name Role Phone Unavailable Primary Care Provider Unavailable Encounter Details Date Type Department Care Team Description 07/12/2010 Hospital Encounter HX [facility] Narinder De [...] do you attend religious or Never 2021 pentecostal services? Do you [...] encounter Progress Notes Narinder Enriquez M.D. - 07/12/2010 12:00 AM CDT [id number] IMPRESSION/REPORT/PLAN 1. Intrauterine at 19 and 3/7 weeks. Positive cardiac activity. 2. EDC is 12/03/2010 set by 7 week ultrasound. 3. History of depression and bipolar disorder currently asymptomatic on no medication. 4. History of tobacco abuse. Patient quit smoking March 2010. 5. History of polycystic ovarian syndrome currently asymptomatic. Plan: 1. Return to clinic in 4 weeks for OB visit or be seen sooner PRN. 2. Routine OB precautions, recommendations and instructions are reviewed with the patient including movement and kick counts. 3. I encourage the patient to continue with smoking cessation efforts. LABS 06/27/2010 urine culture no growth. PROCEDURE An obstetrical ultrasound is performed revealing a single intrauterine gestation in cephalic presentation. Placenta is located anteriorly. No placenta previa. Amniotic fluid level is normal. Gender is visualized as male. Three vessel cord is seen and appears normal. Lateral ventricle, atrium and cerebellum are seen and appear normal. Cervical, thoracic, lumbar, and sacral spine are seen and appear normal. Stomach, cord insertion, and bladder are seen and appear normal. Right and left upper and lower extremities including hands and feet are seen and appear normal. cardiac activity is seen. heart rate is measured at 149 beats per minute. Four chamber heart is seen. No gross anomalies are visualized. The patient is aware this is not a comprehensive screen for congenital anomalies. Patient is aware this is not a guarantee the fetus is male. measurements are obtained with average ultrasound age of 19 and 6/7 weeks, which is consistent with dates. Estimated weight 320 grams, which is 54th percentile for growth. CHIEF COMPLAINT/REASON FOR VISIT Routine OB visit HISTORY OF PRESENT ILLNESS This patient is a 24-year-old, G5, P2-0-2-2 female with EDC 12/03/2010 set by 7 week ultrasound. The patient is 19 and 3/7 weeks today. She presents for OB visit and OB ultrasound. She is doing well. She has no complaints. She reports good movement. No leaking of fluid or vaginal bleeding. No cramping or contractions. No headaches or vision changes. No depression symptoms. CURRENT MEDICATIONS Post-visit Medication Reconciliation Generic vitamins 1 p.o. daily ALLERGIES No known drug allergies. VITAL SIGNS DATE/TIME 07/12/10 WEIGHT 60.4 kg SYSTOLIC 96 DIASTOLIC 48 PHYSICAL EXAM AREA EXAM TEXT GENERAL Well developed, well nourished gravid female in no apparent distress. Alert and oriented times 3. Normal affect. ABDOMEN Gravid, soft and nontender. Fundal height 1 cm below umbilicus. Positive Doptones are auscultated 150. EXTREMITIES No edema or tenderness. JTS/mgd Signed Narinder Enriquez M.D. 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 Intake/History Entered On: 07/12/2010 13:42 CDT Performed On: 07/12/2010 13:41 CDT by KISHAN HOLLINGSWORTH LPN Intake Chief Complaint: OB check and ultrasound @ 19 3/7 weeks LMP Date: 02-26-09 Systolic Blood Pressure: 96mmHg Diastolic Blood Pressure: 48mmHg (<LLOW) NIBP Mean: 64mmHg BP Location: Right upper extremity Actual Weight: 60.400kg(Converted to: 133.159lb) Dosing Weight Clinic: 60.40kg KISHAN HOLLINGSWORTH LPN - 07/12/2010 13:41 CDT Subjective Pain Symptoms: No KISHAN HOLLINGSWORTH LPN - 07/12/2010 13:41 CDT Dependent Habits Tobacco Use/Currently Using: No KISHAN HOLLINGSWORTH LPN - 07/12/2010 13:41 CDT Tobacco Use Grid Type: Cigarettes KISHAN HOLLINGSWORTH LPN - 07/12/2010 13:41 CDT Allergies Allergies (Active) NKA Estimated Onset Date: Unspecified ; Created By: DUSTY CLEMONS; Reaction Status: Active ; Category: Drug ; Substance: NKA ; Type: Allergy ; Updated By: DUSTY CLEMONS; Reviewed Date: 07/12/2010 13:41 CDT Source: [facility] [employer] Document Id: [id number] CDT!17 documented in this encounter Plan of Treatment Upcoming Encounters Date Type Specialty Care Team Description 08/30/2022 Clinical Communication Admitting/Central Scheduling 09/02/2022 Comprehensive Visit Endocrinology Ricardo Winkler, SILVIO, C.N.P., D.N.P. [address] [place] [phone] documented as of this encounter Visit Diagnoses Not on filedocumented in this encounter
--- OUTSIDE RECORDS SUMMARY | 2022-08-16 21:37 | XMS_ITS | Clinical Summary ---
:1985 Author Organization [facility] [place] [address] Care Team Providers Name Role Phone Robe Del Valle Primary Care Provider [phone] Allergies Active Allergy Reactions Severity Noted Date Comments Bupropion Hcl Anxiety 06/03/2014 flush, anger Medications Medication Sig Dispensed Refills Start Date End Date Status ibuprofen (ADVIL; Take 2-4 tablets 100 tablet 0 06/17/2019 Active MOTRIN) 200 mg by mouth every 6 tabletIndications: hours if needed Encounter for for Pain (mild sterilization pain). naproxen (ALEVE) 220 mg Take 1 Tablet 0 11/07/2021 Active tablet (220 mg) by mouth every 12 hours if needed. methylPREDNISolone Take by mouth as 21 Tablet 0 01/08/2022 Active (Medrol, Gilbert,) 4 mg instructed per tabletIndications: packaging. Trauma metFORMIN (GLUCOPHAGE) TAKE ONE TABLET 0 08/08/2022 Active 500 mg tablet BY MOUTH EVERY DAY WITH BREAKFAST methylPREDNISolone Take by mouth as 21 Tablet 0 08/12/2022 Active (Medrol, Gilbert,) 4 mg instructed per tabletIndications: Lung packaging. crackles, Acute cough, Wheezing, Lower respiratory infection (e.g., bronchitis, pneumonia, pneumonitis, pulmonitis) azithromycin (Zithromax Two tablets the 6 Tablet 0 08/12/2022 Active Z-Gilbert) 250 mg first day, one 2 tabletIndications: Acute daily days 2-5 cough, Lower respiratory infection (e.g., bronchitis, pneumonia, pneumonitis, pulmonitis) Active Problems Problem Noted Date Encounter for sterilization 04/07/2019 Uterine prolapse 03/08/2019 History of delivery 02/28/2019 Iron deficiency anemia 12/03/2018 Subacute and chronic vaginitis 04/10/2018 Fibromyalgia 03/27/2018 Gestational diabetes mellitus 02/13/2015 Chronic tension headache 09/05/2014 History of cervical dysplasia 04/02/2010 Polycystic disease, ovaries Obesity Migraine headache Fatty liver Depression, major, recurrent Cervical dysplasia Bipolar I disorder Anemia Resolved Problems Problem Noted Date Resolved Date Precipitous delivery, delivered (current hospitalization) 06/14/2019 Precipitous delivery, delivered (current hospitalization) 06/17/2019 Pyelectasis of fetus on ultrasound 02/28/2019 06/14/2019 History of delivery 02/28/2019 06/14/2019 History of gestational diabetes mellitus (GDM) 07/16/2018 06/14/2019 02/13/2015 06/14/2019 Gestational diabetes mellitus 02/13/2015 06/14/2019 Encounters Date Type Specialty Care Team Description 08/12/2022 Ancillary Procedure 08/12/2022 Office Visit Billy Azevedo, Person Und er Investigation PA ([facility]) 08/12/2022 Emergency 08/12/2022 Nurse Triage Pcp, No Questions 08/12/2022 Travel from Last 3 Months Family History Medical History Relation Name Comments Anxiety disorder Father Arrhythmia Father Cardiomyopathy Father Idiopathic famil ial Colon polyps Father Depression Father Migraines Father Rheum arthritis Maternal Aunt Stroke Maternal Grandmother Anxiety disorder Mother Depression Mother Endometrial cancer Mother Lung cancer Mother Migraines Mother Lung cancer Paternal Aunt Uterine cancer Paternal Aunt Lung cancer Paternal Grandfather Endometrial cancer Paternal Grandmother Lung cancer Paternal Grandmother Relation Name Status Comments Father Maternal Aunt Maternal Grandmother Mother Paternal Aunt Paternal Grandfather Paternal Grandmother Social History Tobacco Use Types Packs/Day Years Used Date Former Smoker 0.2 Quit: 2016 Smokeless Tobacco: Never Used Tobacco Cessation: Ready to Quit: No Comments: quit ~ 05/2014 Alcohol Use Standard Drinks/Week Comments No 0 (1 standard drink = 0.6 oz pure alcoho l) Sex Assigned at Date Recorded Not on file COVID-19 Exposure Response Date Recorded In the last 10 days, have you been in contact with No / Unsu re 08/12/2022 1:35 PM CDT someone who was confirmed or suspected to have Coronavirus/COVID-19? Obstetrics History Para Term AB IAB SAB Ectopic Multiple Living Live Births 7 5 4 1 2 0 2 0 0 5 5 Date Outcome GA Total Labor/2nd/3rd Weight Sex Delivery Anes PTL Kyung A 1 A5 Name Clin Labor 02/10 Term 38w 2.72 kg F Vag-Spont N Guillermina /2001 0d (6 lb) ng 2004 SAB 11w 0d 2005 SAB 13w 0d 08/16 Term 38w 2.75 kg F Vag-Spont Y Guillermina /2007 0d (6 lb 1 ng oz) 11/06 36w 2.35 kg M Vag-Spont Y Guillermina /2009 1d (5 lb 3 ng oz) 02/17 Term 39w 3.43 kg M Vag Epidu N Guillermina 9 9 JENSE Enriquez /2014 2d (7 lb 9 ral ng N,BB oz) (CARMEL EY) Delivery Location: [facility] Comments: precipitous delivery 02/28/2019 Term 37w5d 3.49 kg (7 F Vag-Spont None N Living 8 9 NG,BG KEILY lb 11 oz) Delivery Location: [facility] ([facility]) Comments: Precipitous delivery Last Filed Vital Signs Vital Sign Reading Time Taken Comments Blood Pressure 103/58 08/12/2022 2:53 PM CDT Pulse 70 08/12/2022 2:53 PM CDT Temperature 36.8 ??C (98.3 ??F) 08/12/2022 2:53 PM CDT Respiratory Rate 18 08/12/2022 2:53 PM CDT Oxygen Saturation 98% 08/12/2022 2:53 PM CDT Inhaled Oxygen Concentration - - Weight 78.9 kg (174 lb) 08/12/2022 2:53 PM CDT Height 149.9 cm (4' 11) 08/12/2022 1:40 PM CDT Body Mass Index 35.14 08/12/2022 1:40 PM CDT Plan of Treatment Health Maintenance Due Date Last Done Comments COVID-19 vaccine series (#1) 04/15/1988 Tdap 1998 Depression screening for age 12+ 1999 Hepatitis C screening for age 18-79 2005 Tetanus booster 2007 Pap test for age 21-65 2008 BMI (ht and wt on same day) for age 18+ 06/22/2020 06/22/20 Influenza for age 9-49 07/25/2022 Procedures Procedure Name Priority Date/Time Associated Comments Diagnosis XR CHEST 2 VIEWS PA STAT 08/12/2022 3:44 PM Lung crac kles Results for this AND LATERAL CDT Acute cough procedure are in Wheezing the results section. CBC WITH AUTO STAT 08/12/2022 3:38 PM Lung crackles Results for this DIFFERENTIAL CDT Acute cough procedure are in Wheezing the results section. BASIC METABOLIC PANEL STAT 08/12/2022 3:38 PM Lung cr ackles Results for this CDT Acute cough procedure are in Wheezing the results section. CBC WITH AUTO STAT 08/12/2022 3:38 PM Lung crackles Results for this DIFFERENTIAL CDT Acute cough procedure are in Wheezing the results section. from Last 3 Months Results XR CHEST 2 VIEWS PA AND LATERAL (08/12/2022 3:44 PM CDT) Anatomical Region Laterality Modality CHEST, THORAX, Lung, HEART Computed Radi ography Specimen (Source) Anatomical Collection Method Collection Time Re ceived Time Location / / Volume Laterality 08/12/2022 4:07 PM CDT Impressions 08/12/2022 4:07 PM CDT No acute or significant findings. Dictated by Warren Colon MD @ 08/12/2022 4:07:41 PM (Electronically Signed) Narrative 08/12/2022 4:07 PM CDT For Patients: ??As a result of the Cures Act, medical imaging exams and procedure report s are released immediately into your [facility] medical record. ??You may view this report before your referring provider. ??If you have questions, please contact your health care provider. INDICATION: Lung crackles TECHNIQUE: Chest 2 views. COMPARISON: chest x-ray November 07, 2021. FINDINGS: Cardiovascular and mediastinum: ??Heart size and vasculature are normal in caliber and appearance. ?? Lungs and pleural spaces: ??Lungs are cl ear. ??No sign of infiltrate. No sign of pleural effusion. ??No pneumothorax. ?? Bones and soft tissues: ??No significant findings. Procedure Note Warren Colon MD - 08/12/2022F ormatting of this note might be different from the original. For Patients: As a result of the ntury Cures Act, medical imaging exams and procedure reports are released immediately into your electronic medical record. You may view this report before your referring provider. If you have questions, please contact yo health care provider. INDICATION: Lung crackles TECHNIQUE: Chest 2 views. COMPARISON: chest x-ray November 07, 2021. FINDINGS: Cardiovascular and mediastinum: Heart si ze and vasculature are normal in caliber and appearance. Lungs and pleural spaces: Lungs are roque r. No sign of infiltrate. No sign of pleural effusion. No pneumothorax. Bones and soft tissues: No significant f indings. IMPRESSION: No acute or significant findings. Dictated by Warren Colon MD @ 08/12/2022 4:07:41 PM (Electronically Signed) Billy Fernando GENERAL IMAGING (ABNORMAL) CBC WITH AUTO DIFFERENTIAL (08/12/2022 3:38 PM CDT) [facility] gist Method Time Signature WHITE BLOOD 12.3 (H) 4.5 - 08/12/2022 [place] COUNT 11.0 3:48 PM [facility] [place] thou/cu LABORATORY mm RED BLOOD COUNT 3.86 (L) 4.00 - 08/12/2022 [place] 5.20 3:48 PM [facility] mil/cu mm LABORATORY HEMOGLOBIN 12.1 12.0 - 08/12/2022 [place] 16.0 g/dL 3:48 PM [facility] [place] LABORATORY HEMATOCRIT 36.9 33.0 - 08/12/2022 [place] 51.0 % 3:48 PM [facility] [place] LABORATORY MCV 96 80 - 100 08/12/2022 [place] fL 3:48 PM T [facility] LABORATORY MCH 31.3 26.0 - 08/12/2022 [place] 34.0 pg 3:48 PM [facility] [place] LABORATORY MCHC 32.8 32.0 - 08/12/2022 [place] 36.0 g/dL 3:48 PM [facility] [place] LABORATORY RDW 13.1 11.5 - 08/12/2022 [place] 15.5 % 3:48 PM [facility] [place] LABORATORY PLATELET COUNT 423 140 - 440 08/12/2022 [place] thou/cu 3:48 PM T [facility] mm LABORATORY MPV 9.7 6.5 - 08/12/2022 [place] 11.0 fL 3:48 PM [facility] LABORATORY NEUTROPHILS 70.1 % 08/12/2022 [place] 3:48 PM [facility] [place] LABORATORY LYMPHOCYTES 20.8 % 08/12/2022 [place] 3:48 PM [facility] LABORATORY MONOCYTES 6.6 % 08/12/2022 [place] 3:48 PM [facility] LABORATORY EOSINOPHILS 2.0 % 08/12/2022 [place] 3:48 PM [facility] [place] LABORATORY BASOPHILS 0.5 % 08/12/2022 [place] 3:48 PM [facility] [place] LABORATORY ABSOLUTE 8.6 (H) 1.7 - 7.0 08/12/2022 [place] NEUTROPHILS thou/cu 3:48 PM T [facility] mm LABORATORY ABSOLUTE 2.6 0.9 - 2.9 08/12/2022 [place] LYMPHOCYTES thou/cu 3:48 PM [facility] mm LABORATORY ABSOLUTE 0.8 <0.9 08/12/2022 [place] MONOCYTES thou/cu 3:48 PM [facility] mm LABORATORY ABSOLUTE 0.2 <0.5 08/12/2022 [place] EOSINOPHILS thou/cu 3:48 PM [facility] [place] mm LABORATORY ABSOLUTE 0.1 <0.3 08/12/2022 [place] BASOPHILS thou/cu 3:48 PM T [facility] mm LABORATORY Specimen Anatomical Collection Method / Collection Time Recei keanu Time (Source) Location / Volume Laterality Blood BLOOD SPECIMEN / Venipuncture / 08/12/2022 3:38 2021 3:39 Unknown Unknown PM CDT PM CDT Billy Fernando HEMATOLOGY Performing Organization Address City/State/ZIP Code Phon e Number [facility] [address] [place] [address] BASIC METABOLIC PANEL (08/12/2022 3:38 PM CDT) P athologist Signature SODIUM 139 135 - 145 08/12/2022 [place] mmol/L 4:02 PM [facility] POTASSIUM 4.0 3.5 - 5.0 08/12/2022 [place] mmol/L 4:02 PM [facility] [place] LABORATORY CHLORIDE 107 98 - 110 08/12/2022 [place] mmol/L 4:02 PM [facility] CO2,TOTAL 26 21 - 31 08/12/2022 [place] mmol/L 4:02 PM [facility] ANION GAP 6 5 - 18 08/12/2022 [place] 4:02 PM [facility] GLUCOSE 89 65 - 100 08/12/2022 [place] mg/dL 4:02 PM [facility] CALCIUM 9.5 8.5 - 10.5 08/12/2022 [place] mg/dL 4:02 PM [facility] BUN 10 8 - 25 08/12/2022 [place] mg/dL 4:02 PM [facility] CREATININE 0.73 0.57 - 08/12/2022 [place] 1.11 mg/dL 4:02 PM [facility] BUN/CREAT RATIO 14 10 - 20 08/12/2022 [place] 4:02 PM [facility] eGFR >90 >90 08/12/2022 [place] mL/min/1.7 4:02 PM [facility] 3m2 LABORATORY Comment: As of 2022, eGFR is calcu lated by the CKD-EPI creatinine equation without race adjustment. eGFR can be inf luenced by muscle mass, exercise, and diet. The reported eGFR is an estimation only and is only applicable if the renal function is stable. Specimen Anatomical Collection Method / Collection Time Recei keanu Time (Source) Location / Volume Laterality Blood BLOOD SPECIMEN / Venipuncture / 08/12/2022 3:38 2021 3:39 Unknown Unknown PM CDT PM CDT Billy Fernando CHEMISTRY Performing Organization Address City/State/ZIP Code Phon e Number [facility] [address] [place] [address] from Last 3 Months Insurance Payer Benefit Plan / Subscriber ID Effective Dates Phone Addre ss Type Group [place] [id number] 2019-Presen [address] [address] [place] [address] BLUE [employer]OSS BLUE CROSS OF [id number] 2014-Presen [address] [address] [place] [address] [place] [id number] 2015-Presen [address] [place] [address] [place] [id number] 2019-Presen [address] [address] HEALTH CARE [facility] [place] [address] NgKeily Fritz Personal/Family Self 1985 [address] (Home) [place] [id number] Advance Directives Latest Code Status on File Code Status Date Activated Date Inactivated Comments Full Code 06/17/2019 6:35 AM 06/17/2019 1:16 PM Code Status Discussion: Discussed Full Code 02/28/2019 5:28 AM 03/01/2019 5:08 PM Full Code 02/09/2019 3:01 PM 02/09/2019 7:20 PM Full Code 02/17/2015 6:59 AM 02/18/2015 9:27 PM Full Code 01/29/2015 2:14 PM 01/29/2015 4:37 PM Care Teams Sales Consultant Relationship Specialty Start Date End Date Robe Del Valle MBBS PCP - General Family Practice 07/13/21 [facility] [place] Av[place]ERT[place] [id number]
--- OUTSIDE RECORDS SUMMARY | 2022-08-16 21:37 | XMS_ITS ---
:1985 Author Care Team Providers Name Role Phone Kianna Law Primary Care Provider Unavailable Allergies None recorded. Medications Name Status Start Date Stop Date ? ? azithromycin 250 mg tablet Active ? Not a vailable TAKE 1 TABLET BY MOUTH EVERY 24HRS. NAIMA E 2 TABLETS BY MOUTH ON DAY 1, THEN 1 TABLET DAILY FOR DAYS 2-5 cefuroxime axetil 500 mg tablet Active ? Not available TAKE ONE TABLET BY MOUTH TWICE A DAY FOR 7 DAYS cyclobenzaprine 5 mg tablet Active ? Not available TAKE ONE TABLET BY MOUTH AT BEDTIME NEEDED FOR MUSCLE SPASM diazepam 5 mg tablet Active ? Not availab le TAKE ONE TABLET BY MOUTH EVERY 6 HOURS NEEDED FOR MUSCLE SPA SM Problems None recorded. Procedures None recorded. Results Lab Results Date Name Specimen Result Interpretation Description Value Range Status Address ? 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 Social History None recorded. Vaccine List None recorded. Plan of Care Patient Instructions Will notify patient of covid result whe n available. No treatment indicated as patient is asymptomatic. Patient in agre ement and understanding. All questions answered. Reminders Provider Appointments None recorded. ? ? Lab None recorded. ? ? Referral None recorded. ? ? Procedures None recorded. ? ? Surgeries None recorded. ? ? Imaging None recorded. ? ? Vitals Blood Pressure 103/70 mm[Hg]
== END 2022-08-16 21:54 | disposition home or self-care (01) ==
LOC: ED 21:25
PROVIDERS: Emergency Provider Emergency Medicine Emergency Medical Services
DX: R07.9 Chest pain, unspecified (principal); R51.9 Headache, unspecified
CPT/HCPCS: 36415; 84484; 85379; 93308; 99284; A9270